=== PATIENT | female | born 1980 | race Caucasian/White ===

== ENCOUNTER → 2018-04-04 08:45 | Outpatient (CLI) | payer OTHER, SELFPAY ==
--- NOTE | 2018-04-04 09:15 | MRI_ITS ---
STUDY: MRI LUMBAR SPINE WITHOUT CONTRAST REASON FOR EXAM: Female, 38 years old. Low back pain for 6 years with increasing numbness in the left leg for 23 weeks. TECHNIQUE: Standardized fat and water weighted pulse sequences were obtained in the sagittal and axial planes. COMPARISON: MRI of the lumbar spine dated August 23, 2016. FINDINGS: T12-L1: Normal endplates. Normal disc height, signal and morphology. Normal bilateral facet joints. Normal central canal and bilateral lateral recesses. Normal bilateral intervertebral neural foramina. Normal lumbar lordosis. There is no substantial scoliosis. Normal conus medullaris that terminates at the L1 level. L1-2: Normal endplates. Normal disc height, signal and morphology. Normal bilateral facet joints. Normal central canal and bilateral lateral recesses. Normal bilateral intervertebral neural foramina. L2-3: Normal endplates. Normal disc height, signal and morphology. Normal bilateral facet joints. Normal central canal and bilateral lateral recesses. Normal bilateral intervertebral neural foramina. L3-4: Normal endplates. Normal disc height, signal and morphology. Normal bilateral facet joints. Normal central canal and bilateral lateral recesses. Normal bilateral intervertebral neural foramina. L4-5: Normal endplates. Normal disc height, signal and morphology. Normal bilateral facet joints. Normal central canal and bilateral lateral recesses. Normal bilateral intervertebral neural foramina. L5-S1: There is narrowing of the disc with loss of normal T2 hyperintensity consistent with degenerative disc disease. Appears to be a focal left foraminal disc protrusion. This narrows the left neural foramen. The right neural foramen is patent. There is mild degenerative arthropathy of facet joints. There is no significant central acquired canal stenosis. Normal visualized sacral ala. Normal visualized paraspinous soft tissue structures. MRI/Spine Lumbar (Routine) IMPRESSION: Degenerative disc disease at L5-S1 with left foraminal disc protrusion. Electronically Signed: Mesha Oquendo MD at 9:27 EDT , Service support ,
== END ==
PROVIDERS: Visit Provider Nurse Practitioner Family
DX: S33.5XXA Sprain of ligaments of lumbar spine, initial encounter (principal)
CPT/HCPCS: 72148

== ENCOUNTER 2018-05-02 03:00 | Emergency (ER) | payer OTHER, SELFPAY ==
[2018-05-02 03:01] VITALS: BP 126/100; PULSE 85; RESP 18; TEMP 38; O2SAT 96; BMI 38.0
--- NOTE | 2018-05-02 03:13 | ED.VISSUMM ---
- ER Visit Summary Date of Service: 05/02/18 Chief Complaint: Back pain History of Present Illness: The patient is a 38 F increasing back pain since yesterday morning. No new activities. History of L5-S1 hernia followed by Dr. Perez. No surgical history. Has had multiple MRIs in the past. Back injection last one this past March. States no help. She is on Celebrex and Zanaflex, taking this less than 6 hours ago. Pain worse with movement. States feels warm. Denies sinus congestion upper respiratory infection. Denies urinary symptoms. Denies recreational drug abuse. Pain similar to previous. History diabetes. Patient states has pain down left leg. Denies any loss of bowel or bladder control. Physical Examination: General: Alert and oriented ?3, uncomfortable HEENT: Normocephalic, atraumatic. Moist mucosa membranes Neck: supple, nontender. Cardiovascular: Regular rate and rhythm, no murmurs Respiratory: Normal breath sounds, symmetric, no distress Abdomen: Soft, nontender, nondistended Back: Tender palpation left paralumbar, no erythema. Straight leg test negative. 1+ patellar reflex bilaterally. Extremities: Nontender, no edema, pulses intact ?4 Neuro: no focal neurological deficits. Test Results: UA: Negative. Emergency Department Course and Treatment: Patient presents with sciatica symptoms history of herniation. She has no cauda equina symptoms. Patient has a low-grade temperature in the ED. She denies any IV drug abuse. There is no rash or erythema of the lower back. Urine was obtained which is negative. Patient has subcu injection morphine for comfort. She will continue her NSAIDs and muscle relaxer. Patient is followed by pain management. Discussed with patient limitations of any additional prescriptions. Adjustments need to be made by her pain doctor. Patient will follow-up as an outpatient, signs and symptoms discussed return. All questions are answered. Treatment Plan: [] Disposition: Discharge Impression: 1. Sciatica 2. Chronic back pain This note was generated with [employer]Spotter[employer] software. It may contain incorrect words, spelling, and punctuation that were not noted in review of the chart prior to signing ED Disposition - Plan for ED Patient: Disposition: Home or Assisted Living Chief Complaint: Back Diagnosis: Sciatica Instructions: ED Sciatica Referrals: Care Physician,No Primary [Primary Care Provider] - Dov Perez [NON-STAFF] - 2 Days
[2018-05-02] MEDS: Morphine 4 MG/ML Syringe SC (03:20)
[2018-05-02 03:29] LABS: Mucous, Urine 0 SEEN /hpf (<or=2+); Red Blood Cells-Urine 0 SEEN /hpf (0-5); White Blood Cells 0 SEEN /hpf (0-5)
[2018-05-02 03:30] LABS: Color, Urine Yellow (Yellow); Glucose, Dipstick Normal (Normal); Ketone-Dipstick Negative (Negative); Leukocyte Esterase-Dipstick Negative /ul (Negative); Nitrite-Dipstick Negative (Negative); Occult Blood-Urine Negative /ul (Negative); Protein-Dipstick Negative (Negative); Urine Bilirubin Dipstick Negative (Negative); Urine Clarity Sl. Cloudy (Clear); Urine Urobilinogen Normal (Normal)
[2018-05-02 03:36] LABS: Bacteria RARE /hpf (None Seen); Squamous Epithelial Cells - UA 10-25 SEEN /hpf (5-10)
--- NOTE | 2018-05-02 03:51 | ED.RN ---
PATIENT C/O PAIN AT DISCHARGE 9/10 AFTER ONLY 20 MIN AFTER MORPHINE INJECTION. THIS WAS NOT FULL EFFECT AT 20 MINUTES. DISCHARGE INSTRUCTIONS GIVEN, AND PATIENT WHEELED OUT TO THE TRUCK BY THIS NURSE.
== END 2018-05-02 03:52 | disposition home or self-care (01) ==
PROVIDERS: Emergency Provider Emergency Medicine
DX: M54.42 Lumbago with sciatica, left side (principal); G89.29 Other chronic pain; E11.9 Type 2 diabetes mellitus without complications; I10 Essential (primary) hypertension; E78.00 Pure hypercholesterolemia, unspecified; Z79.84 Long term (current) use of oral hypoglycemic drugs; Z79.1 Long term (current) use of non-steroidal anti-inflammatories (NSAID); Z79.899 Other long term (current) drug therapy
CPT/HCPCS: 81001; 96372; 99282

== ENCOUNTER 2018-11-14 19:01 | Observation (INO) | payer OTHER, SELFPAY ==
[2018-11-14 19:02] VITALS: BP 160/90; PULSE 98; RESP 16; TEMP 36.7; O2SAT 99; BMI 36.9
--- NOTE | 2018-11-14 19:23 | CT_ITS ---
STUDY: CT BRAIN WITHOUT CONTRAST REASON FOR EXAM: Female, 38 years old. Right-sided numbness. RADIATION DOSAGE (If Supplied By Facility): CTDIvol = ( 44.99 ) mGy, DLP = ( 745.49 ) mGycm TECHNIQUE: Transaxial CT imaging of the brain was performed without administration of intravenous contrast material. Individualized dose optimization techniques were used for this CT. COMPARISON: None. FINDINGS: Normal soft tissue structures. Normal calvarium. Normal size ventricles and extra-axial spaces for the patient's age. Normal white matter tracts of the cerebral hemispheres. Normal basal ganglia and thalami. Normal brainstem. Normal cerebellum. There is no intracranial hemorrhage. There are no findings of an acute ischemic infarction. Normal visualized paranasal sinuses. CT/Brain/Head without Contrast IMPRESSION: Normal unenhanced CT scan of the brain. Electronically Signed: Raz Stovall MD at 21:11 EDT , Service support ,
--- NOTE | 2018-11-14 19:23 | EKG12_ITS ---
Test Reason : NUMB/TING Blood Pressure : / mmHG Vent. Rate : 084 BPM Atrial Rate : 084 BPM P-R Int : 176 ms QRS Dur : 082 ms QT Int : 376 ms P-R-T Axes : 043 014 046 degrees QTc Int : 444 ms Normal sinus rhythm Normal ECG Confirmed by MARC BEGUM, ASHLEIGH ([id number]), purchase request editor ED MARCOS ([id number]) on 11/16/2018 4:24:04 PM Referred By: JESUS Confirmed By:ASHLEIGH TRAN MD
[2018-11-14 19:24] VITALS: O2SAT 97
--- NOTE | 2018-11-14 19:30 | RAD_ITS ---
STUDY: X-RAY CHEST REASON FOR EXAM: Female, 38 years old. Numbness to face with dizziness. TECHNIQUE: Single frontal view of the chest. COMPARISON: September 17, 2014 FINDINGS: The lungs are clear and expanded. There is no demonstrated pleural abnormality. Normal size heart. Normal mediastinum and aroldo. Normal visualized pulmonary arteries. Normal visualized aortic arch and descending thoracic aorta. Normal visualized thoracic spine. Normal visualized ribs, clavicles, and shoulders. There is no demonstrated abnormality of the visualized soft tissue structures of the upper abdomen. RAD/Chest 1 View IMPRESSION: Normal x-ray examination of the chest. Electronically Signed: Musa Restrepo MD at 20:21 EDT , Service support ,
[2018-11-14 20:12] LABS: Absolute Neutrophil Count 4.4 X10^3/uL (2.0-7.7); Basophil# 0.02 X10^3/uL; Basophil% 0.2 % (0-1); Eosinophils% 2.3 % (0-5); Hematocrit 39.9 % (37-47); Hemoglobin 12.6 g/dl (12.0-15.0); Lymphocyte % 40.6 % (19-41); Mean Corp Hgb Conc 31.6 g/gl (32-36); Mean Corpuscular Hgb 29.9 pg (27.0-32.0); Mean Corpuscular Volume 94.8 fL (81-99); Mean Platelet Vol. 9.8 fl (6.2-12.0); Monocyte% 6.8 % (0-10); Neutrophil # 4.44 X10^3/uL (2.7-7.7); Platelet Count 362 K/mm3 (150-450); RBC Distribution Width CV 12.8 % (11.6-14.6); Red Blood Count 4.21 M/mm3 (4.2-5.4); White Blood Count 8.9 K/mm3 (4.4-11.0)
[2018-11-14 20:17] LABS: POSITIVE COUNT NO; POSITIVE DIFFERENTIAL NO; POSITIVE MORPHOLOGY NO
[2018-11-14 20:26] VITALS: BP 133/102; PULSE 87; RESP 15; O2SAT 100
[2018-11-14 20:29] LABS: BUN 13 mg/dL (7-18); Creatinine, Serum 0.98 mg/dL (0.55-1.02); EST Glomerular Filtration Rate 68 mL/min (>60); Estimated Creatinine Clearance 62.16 ml/min; Glucose 100 mg/dL (74-106)
[2018-11-14 20:30] LABS: Anion Gap 6 (5-15); BUN/Creat Ratio 13.3 RATIO (10-20); Calcium,Total 9.2 mg/dL (8.5-10.1); Chloride 105 mmol/L (98-107); Est Glom Filt Rate - Afr Amer 82 mL/min (>60); Potassium 3.5 mmol/L (3.5-5.1); Sodium Level 142 mmol/L (136-145)
[2018-11-14 20:33] LABS: Prothrombin Time (Protime)PT. 13.1 SECONDS (11.7-14.9)
[2018-11-14 20:34] LABS: Partial Thromboplast Time 32.9 Seconds (24.1-36.2)
--- NOTE | 2018-11-14 22:09 | CT_ITS ---
STUDY: CTA OF THE BRAIN REASON FOR EXAM: Female, 38 years old. Rt side numbness. Occipital headache RADIATION DOSAGE (If Supplied By Facility): CTDIvol = ( 16.43 ) mGy, DLP = ( 688.89 ) mGycm TECHNIQUE: CT angiography was performed with a multi-detector CT scanner. Data acquisition was obtained from the skull base through the vertex following intravenous administration of Isovue 300 100ml IV. MIP images were reconstructed from the axial data set. Post-processing of the angiographic images was performed, with multiplanar reformation and 3D reconstruction. Individualized dose optimization techniques were used for this CT. COMPARISON: CT of the head earlier today which was normal. FINDINGS: Normal bilateral petrous carotid arteries. Normal right cavernous carotid artery with a normal supraclinoid bifurcation. Normal left cavernous carotid artery with a normal supraclinoid bifurcation. Normal right A1 segments of the anterior cerebral artery. Normal left A1 segments of the anterior cerebral artery. Normal intact anterior communicating artery (ACOM). Normal bilateral A2 segments of the anterior cerebral arteries. Normal right M1 and M2 segments of the middle cerebral arteries, with a normal M1 bifurcation. Normal left M1 and M2 segments of the middle cerebral arteries, with a normal M1 bifurcation. Normal right posterior communicating artery (PCOM). Normal left posterior communicating artery (PCOM). Normal bilateral vertebral arteries. Normal basilar artery with a normal basilar bifurcation. The visualized bilateral superior cerebellar (SCA) arteries are normal. Normal bilateral P1, P2 and visualized P3 segments of the posterior cerebral arteries. There is no demonstrated aneurysm of the [place]. There is no demonstrated abnormality of the visualized brain. CT/CTA Head W/WO Contrast IMPRESSION: Normal [place] of [place] without a demonstrated aneurysm or hemodynamically significant stenosis. Electronically Signed: Raz Stovall MD at 23:20 EDT , Service support ,
--- NOTE | 2018-11-14 22:09 | CT_ITS ---
STUDY: CTA NECK WITH CONTRAST REASON FOR EXAM: Female, 38 years old. Rt side numbness. Occipital headache RADIATION DOSAGE (If Supplied By Facility): CTDIvol = ( 16.43 ) mGy, DLP = ( 688.89 ) mGycm TECHNIQUE: CT angiography with multi-detector data acquisition was performed from the aortic arch to the skull base following intravenous administration of Isovue 300 100ml IV. MIP images were reconstructed from the axial data set. Post-processing of the angiographic images was performed, with multiplanar reformation and 3D reconstruction. Individualized dose optimization techniques were used for this CT. COMPARISON: None. FINDINGS: AORTIC ARCH: Normal visualized aortic arch. Normal origins of the brachiocephalic, left common carotid, and left subclavian arteries. RIGHT CAROTID ARTERIES: Normal right common carotid artery (CCA). Normal right common carotid bulb. Normal origin of the right internal carotid (ICA) artery without a hemodynamically significant stenosis. Normal visualized cervical portion of the right internal carotid artery. Normal origin of the right external carotid artery (ECA). LEFT CAROTID ARTERIES: Normal left common carotid artery (CCA). Normal left common carotid bulb. Normal origin of the left internal carotid (ICA) artery without a hemodynamically significant stenosis. Normal visualized cervical portion of the left internal carotid artery. Normal origin of the left external carotid artery (ECA). VERTEBRAL ARTERIES: Normal bilateral vertebral arteries. CT/CTA Neck W/WO Contrast IMPRESSION: Normal bilateral cervical carotid and vertebral arteries. Electronically Signed: Raz Stovall MD at 23:22 EDT , Service support ,
--- NOTE | 2018-11-14 22:59 | PCM.HP.STD ---
Problem List (1) Facial paresthesia Status: Acute (2) Anxiety and depression Status: Chronic (3) Hypokalemia Status: Chronic (4) DM2 (diabetes mellitus, type 2) Status: Chronic Qualifiers: Diabetes mellitus intermediate card tender insulin use: without intermediate card tender use Diabetes mellitus complication status: with unspecified complications Qualified Code(s): E11.8 - Type 2 diabetes mellitus with unspecified complications (5) Benign essential HTN Status: Chronic (6) Asthma Status: Chronic Qualifiers: Asthma severity: unspecified severity Asthma persistence: unspecified Asthma complication type: unspecified Qualified Code(s): J45.909 - Unspecified asthma, uncomplicated (7) Obesity (BMI 30-39.9) Status: Chronic (8) Migraine Status: Chronic Qualifiers: Migraine type: unspecified Status migrainosus presence: without status migrainosus Intractability: not intractable Qualified Code(s): G43.909 - Migraine, unspecified, not intractable, without status migrainosus History of Present Illness Date of Admission: 11/14/18 Chief Complaint: R facial paresthesias The patient is a 38 y/o F w/ PMHx: Hx Migraines, Anxiety and Depression, Obesity, Tobacco-->Vaping currently, Diabetes mellitus type II, Hypertension who presents to the [facility] ED on 11/14/18 with history of ongoing R sided facial including upper and lower face, paresthesias, decreased sensation with tingling starting the evening prior at ~ 10 pm while watching TV, remained constant with also concurrent posterior occipital headache, described as stabbing, rated 6/10 in severity with no light or sound sensitivity prompting eventual ED evaluation. In the ED work-up included T 98, heart rate 98, BP initially 160/90 with improvement to 128/90, respiratory rate 16, 99% on room air, unremarkable CBC, unremarkable coags, unremarkable BMP, trop < 0.015, EKG with sinus rhythm with no acute evidence of ischemia, chest x-ray with no acute cardia pulmonary findings, CT brain with no acute intracranial findings, CTA head within normal [place] without demonstrated aneurysm or hemodynamically significant stenosis, CTA neck with normal bilateral cervical carotid and vertebral arteries. ED discussed patient with neurology who advised admission with follow-up MRI. NIH in the ED was only notable 1 for paresthesia. Past Medical History Past Medical History (Chronic Problems): Chronic Problems Anxiety and depression (Chronic) Obesity (BMI 30-39.9) (Chronic) Migraine (Chronic) Hypokalemia (Chronic) DM2 (diabetes mellitus, type 2) (Chronic) Depression (Chronic) Benign essential HTN (Chronic) Asthma (Chronic) Allergies doxycycline Allergy (Verified 05/02/18 03:03) Hives moxifloxacin HCl [From Avelox] Allergy (Verified 05/02/18 03:03) Hives Penicillins [PCN] Allergy (Verified 05/02/18 03:03) Hives Home Medications: Ambulatory Orders Medication Instructions Recorded Metformin HCl 850 mg PO BID 07/24/13 Amitriptyline HCl [Elavil] 20 mg PO QHS 08/25/14 Buspirone HCl 30 mg PO BID 05/02/18 Celecoxib 200 mg PO DAILY 05/02/18 Tizanidine HCl 4 mg PO BID 05/02/18 Surgical History: - - Tonsillectomy, cholecystectomy, . 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 Tobacco Use: Cigarettes, Vapor Alcohol: None Drugs: None - *Family History Maternal History Items: Diabetes Paternal History Items: Diabetes Review of Systems Constitutional: Reports: Fatigue. Denies: Chills, Fever, Weight Change HEENT: Denies: Head Aches, Sinus Congestion, Sinus Drainage Cardiovascular: Denies: Chest Pain, Palpitations Respiratory: Denies: Cough, Shortness of breath at rest, Sputum production Gastrointestinal: Denies: Abdominal Pain, Nausea, Vomiting Genitourinary: Denies: Dysuria Musculoskeletal: Reports: Back Pain, Joint Pain. Denies: Joint Tenderness Skin: Denies: Rash, Wounds Neurological: Reports: Numbness, Tingling. Denies: Focal weakness Psychiatric: Reports: Anxiety, Depression. Denies: Homicidal Ideations, Suicidal Ideations Hematologic/ Lymphatic: Denies: Easy Bruising, Easy Bleeding VTE Information - Inpt Only VTE Present on Admission: No VTE Mechan Device Prophylaxis: SCD's VTE Pharm Prophylaxis ordered?: Yes Patient Problems: Active and Suspected Problems Facial paresthesia (Acute) Subjective: Seated upright in ED bed, mildly fatigued appearance, no acute distress otherwise. Objective: Physical Examination: General: awake, alert, oriented x 3 and cooperative, seated upright in the ED bed in no apparent distress. Skin: normal color, turgor, no icterus, cyanosis. HEENT: AT/NC, EOMI, PERRLA, MMM, no carotid bruits or JVD noted. Lungs: CTA bilaterally, moderate effort, mild decrease BL bases, no rales, ronchi or wheezing. Heart: Regular rate and rhythm; no gallop, rub audible. Abdomen: soft, obese, NTTP, ND, normal BS, no HSM; however, habitus makes examination difficult. Extremities: no cyanosis, clubbing, or edema. Neurological: patient awake, alert, oriented x 3; cognitive function intact; pupils equally reactive to light and accomodation; cranial nerves II-XII grossly normal, moving all 4 extremities, no focal deficits, strength preserved, ongoing decreased sensation and tingling to the right side of the face including upper and lower face, sensation otherwise intact elsewhere, strength preserved, FTN and HTS intact, negative babinski. Psychiatric: affect appears normal, no acute evidence of depressive or anxiety feelings. - Physical Exam Vital Signs Temp Pulse Resp BP Pulse Ox 98.0 F 87 15 133/102 H 100 11/14/18 19:02 11/14/18 20:26 11/14/18 20:26 11/14/18 20:26 11/14/18 20:26 Oxygen Delivery Method Room Air Weight: 201 lb 15.095 oz Body Mass Index (BMI) 36.9 Laboratory Tests Past 24 Hrs 11/14/18 11/14/18 11/14/18 19:55 19:55 19:55 WBC 8.9 RBC 4.21 Hgb 12.6 Hct 39.9 MCV 94.8 MCH 29.9 MCHC 31.6 L RDW 12.8 RDW Differential 44.0 H Plt Count 362 MPV 9.8 Immature Gran % (Auto) 0.100 Neut % (Auto) 50.0 Lymph % (Auto) 40.6 [place] % (Auto) 6.8 Eos % (Auto) 2.3 Baso % (Auto) 0.2 Absolute Neuts (auto) 4.4 Absolute Lymphs (auto) 3.60 Total Counted Not Reportable PT 13.1 INR 1.0 APTT 32.9 Sodium 142 Potassium 3.5 Chloride 105 Carbon Dioxide 31.0 Anion Gap 6 BUN 13 Creatinine 0.98 Estim Creat Clear Calc 62.16 Est GFR (MDRD) Af Amer 82 Est GFR (MDRD) Non-Af 68 BUN/Creatinine Ratio 13.3 Glucose 100 Calcium 9.2 Troponin I < 0.015 Assessment/Plan All Active Problems Facial paresthesia (Acute) The patient is a 38 y/o F w/ PMHx: Hx Migraines, Anxiety and Depression, Obesity, Tobacco-->Vaping currently, Diabetes mellitus type II, Hypertension who presents to the [facility] ED on 11/14/18 with history of ongoing R sided facial including upper and lower face, paresthesias, decreased sensation with tingling starting the evening prior at ~ 10 pm while watching TV, remained constant with also concurrent posterior occipital headache, described as stabbing, rated 6/10 in severity with no light or sound sensitivity prompting eventual ED evaluation. (1) R Facial Paresthesias and Occiptal Headache concerning for TIA/CVA versus Complex Migraine: ED work-up included T 98, heart rate 98, BP initially 160/90 with improvement to 128/90, respiratory rate 16, 99% on room air, unremarkable CBC, unremarkable coags, unremarkable BMP, trop < 0.015, EKG with sinus rhythm with no acute evidence of ischemia, chest x-ray with no acute cardia pulmonary findings, CT brain with no acute intracranial findings, CTA head within normal [place] without demonstrated aneurysm or hemodynamically significant stenosis, CTA neck with normal bilateral cervical carotid and vertebral arteries. Will admit to PCU, will obtain MRI Brain, ECHO, PT/OT/Speech/Nutrition evaluation per protocol. Will consult Neurology for evaluation. Will allow permissive HTN given unclear etiology pending MRI and timeline, maintain on asa, add high dose statin w/ AM FLP, fall precautions. Mag, TSH pending. (2) Diabetes mellitus type II: Hold oral home regimen, HgbA1c pending, ADA diet, accu checks w/ ISS, nutrition consultation for education and teaching. (3) Anxiety and depression: Continue home Elavil, BuSpar regimen. (4) Obesity: Weight loss and lifestyle changes encouraged, nutrition consulted. (5) Tobacco Abuse: Encouraged cessation, inpatient consultation per RT, NR if desired. (6) Hypertension: Not on regimen, states had previously been on lisinopril although low dose, initially elevated BP upon presentation, decreased to normal range following, will closely monitor and if appropriate add oral agent for hypertension once appropriate given acute presentation #1, PRN IV hydralazine in interim. (7) GERD: Famotidine. (8) DVT prophylaxis: SCD, Lovenox. Code Visit OBSV E&M: [id number] Initial observation care L3
--- NOTE | 2018-11-14 23:02 | HP.PCM_ITS ---
Problem List (1) Facial paresthesia Status: Acute (2) Anxiety and depression Status: Chronic (3) Hypokalemia Status: Chronic (4) DM2 (diabetes mellitus, type 2) Status: Chronic Qualifiers: Diabetes mellitus terminal worker insulin use: without terminal worker use Diabetes mellitus complication status: with unspecified complications Qualified Co de(s): E11.8 - Type 2 diabetes mellitus with unspecified complications (5) Benign essential HTN Status: Chronic (6) Asthma Status: Chronic Qualifiers: Asthma severity: unspecified severity Asthma persistence: unspecified Asthma complication type: unspecified Qualified Code(s): J45.909 - Unspecified asthma, uncomplicated (7) Obesity (BMI 30-39.9) Status: Chronic (8) Migraine Status: Chronic Qualifiers: Migraine type: unspecified Status migrainosus presence: without status migrainosus Intractability: not intractable Qualified Code(s): G43.909 - Migraine, unspecified, not intractable, without status migrainosus History of Present Illness Date of Admission: 11/14/18 Chief Complaint: R facial paresthesias The patient is a 38 y/o F w/ PMHx: Hx Migraines, Anxiety and Depression, Obesity, Tobacco-->Vaping currently, Diabetes mellitus type II, Hypertension who presents to the [facility] ED on 11/14/18 with history of ongoing R sided facial including upper and lower face, paresthesias, decreased sensation with tingling starting the evening prior at ~ 10 pm while watching TV, remained constant with also concurrent posterior occipital headache, described as stabbing, rated 6/10 in severity with no light or sound sensitivity prompting eventual ED evaluation. In the ED work-up included T 98, heart rate 98, BP initially 160/90 with improvement to 128/90, respiratory rate 16, 99% on room air, unremarkable CBC, unremarkable coags, unremarkable BMP, trop < 0.015, EKG with sinus rhythm with no acute evidence of ischemia, chest x-ray with no acute cardia pulmonary findings, CT brain with no acute intracranial findings, CTA head within normal hoopa of [place] without demonstrated aneurysm or hemodynamically significant stenosis, CTA neck with normal bilateral cervical carotid and vertebral arteries. ED discussed patient with neurology who advised admission with follow-up MRI. NIH in the ED was only notable 1 for paresthesia. Past Medical History Past Medical History (Chronic Problems): Chronic Problems Anxiety and depression (Chronic) Obesity (BMI 30-39.9) (Chronic) Migraine (Chronic) Hypokalemia (Chronic) DM2 (diabetes mellitus, type 2) (Chronic) Depression (Chronic) Benign essential HTN (Chronic) Asthma (Chronic) Allergies doxycycline Allergy (Verified 05/02/18 03:03) Hives moxifloxacin HCl [From Avelox] Allergy (Verified 05/02/18 03:03) Hives Penicillins [PCN] Allergy (Verified 05/02/18 03:03) Hives Home Medications: Ambulatory Orders Medication Instructions Recorded Metformin HCl 850 mg PO BID 07/24/13 Amitriptyline HCl [Elavil] 20 mg PO QHS 08/25/14 Buspirone HCl 30 mg PO BID 05/02/18 Celecoxib 200 mg PO DAILY 05/02/18 Tizanidine HCl 4 mg PO BID 05/02/18 Surgical History: - - Tonsillectomy, cholecystectomy, . 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 Tobacco Use: Cigarettes, Vapor Alcohol: None Drugs: None - *Family History Maternal History Items: Diabetes Paternal History Items: Diabetes Review of Systems Constitutional: Reports: Fatigue. Denies: Chills, Fever, Weight Change HEENT: Denies: Head Aches, Sinus Congestion, Sinus Drainage Cardiovascular: Denies: Chest Pain, Palpitations Respiratory: Denies: Cough, Shortness of breath at rest, Sputum production Gastrointestinal: Denies: Abdominal Pain, Nausea, Vomiting Genitourinary: Denies: Dysuria Musculoskeletal: Reports: Back Pain, Joint Pain. Denies: Joint Tenderness Skin: Denies: Rash, Wounds Neurological: Reports: Numbness, Tingling. Denies: Focal weakness Psychiatric: Reports: Anxiety, Depression. Denies: Homicidal Ideations, Suicidal Ideations Hematologic/ Lymphatic: Denies: Easy Bruising, Easy Bleeding VTE Information - Inpt Only VTE Present on Admission: No VTE Mechan Device Prophylaxis: SCD's VTE Pharm Prophylaxis ordered?: Yes Patient Problems: Active and Suspected Problems Facial paresthesia (Acute) Subjective: Seated upright in ED bed, mildly fatigued appearance, no acute distress otherwise. Objective: Physical Examination: General: awake, alert, oriented x 3 and cooperative, seated upright in the ED bed in no apparent distress. Skin: normal color, turgor, no icterus, cyanosis. HEENT: AT/NC, EOMI, PERRLA, MMM, no carotid bruits or JVD noted. Lungs: CTA bilaterally, moderate effort, mild decrease BL bases, no rales, ronchi or wheezing. Heart: Regular rate and rhythm; no gallop, rub audible. Abdomen: soft, obese, NTTP, ND, normal BS, no HSM; however, habitus makes examination difficult. Extremities: no cyanosis, clubbing, or edema. Neurological: patient awake, alert, oriented x 3; cognitive function intact; pupils equally reactive to light and accomodation; cranial nerves II-XII grossly normal, moving all 4 extremities, no focal deficits, strength preserved, ongoing decreased sensation and tingling to the right side of the face including upper and lower face, sensation otherwise intact elsewhere, strength preserved, FTN and HTS intact, negative babinski. Psychiatric: affect appears normal, no acute evidence of depressive or anxiety feelings. - Physical Exam Vital Signs Temp Pulse Resp BP Pulse Ox 98.0 F 87 15 133/102 H 100 11/14/18 19:02 11/14/18 20:26 11/14/18 20:26 11/14/18 20:26 11/14/18 20:26 Oxygen Delivery Method Room Air Weight: 201 lb 15.095 oz Body Mass Index (BMI) 36.9 Laboratory Tests Past 24 Hrs 11/14/18 11/14/18 11/14/18 19:55 19:55 19:55 WBC 8.9 RBC 4.21 Hgb 12.6 Hct 39.9 MCV 94.8 MCH 29.9 MCHC 31.6 L RDW 12.8 RDW Differential 44.0 H Plt Count 362 MPV 9.8 Immature Gran % (Auto) 0.100 Neut % (Auto) 50.0 Lymph % (Auto) 40.6 [place] % (Auto) 6.8 Eos % (Auto) 2.3 Baso % (Auto) 0.2 Absolute Neuts (auto) 4.4 Absolute Lymphs (auto) 3.60 Total Counted Not Reportable PT 13.1 INR 1.0 APTT 32.9 Sodium 142 Potassium 3.5 Chloride 105 Carbon Dioxide 31.0 Anion Gap 6 BUN 13 Creatinine 0.98 Estim Creat Clear Calc 62.16 Est GFR (MDRD) Af Amer 82 Est GFR (MDRD) Non-Af 68 BUN/Creatinine Ratio 13.3 Glucose 100 Calcium 9.2 Troponin I < 0.015 Assessment/Plan All Active Problems Facial paresthesia (Acute) The patient is a 38 y/o F w/ PMHx: Hx Migraines, Anxiety and Depression, Obesity, Tobacco-->Vaping currently, Diabetes mellitus type II, Hypertension who presents to the [facility] ED on 11/14/18 with history of ongoing R sided facial including upper and lower face, paresthesias, decreased sensation with tingling starting the evening prior at ~ 10 pm while watching TV, remained constant with also concurrent posterior occipital headache, described as stabbing, rated 6/10 in severity with no light or sound sensitivity prompting eventual ED evaluation. (1) R Facial Paresthesias and Occiptal Headache concerning for TIA/CVA versus Complex Migraine: ED work-up included T 98, heart rate 98, BP initially 160/90 with improvement to 128/90, respiratory rate 16, 99% on room air, unremarkable CBC, unremarkable coags, unremarkable BMP, trop < 0.015, EKG with sinus rhythm with no acute evidence of ischemia, chest x-ray with no acute cardia pulmonary findings, CT brain with no acute intracranial findings, CTA head within normal hoopa of [place] without demonstrated aneurysm or hemodynamically significant stenosis, CTA neck with normal bilateral cervical carotid and vertebral arteries. Will admit to PCU, will obtain MRI Brain, ECHO, PT/OT/Speech/Nutrition evaluation per protocol. Will consult Neurology for evaluation. Will allow permissive HTN given unclear etiology pending MRI and timeline, maintain on asa, add high dose statin w/ AM FLP, fall precautions. Mag, TSH pending. (2) Diabetes mellitus type II: Hold oral home regimen, HgbA1c pending, ADA diet, accu checks w/ ISS, nutrition consultation for education and teaching. (3) Anxiety and depression: Continue home Elavil, BuSpar regimen. (4) Obesity: Weight loss and lifestyle changes encouraged, nutrition consulted. (5) Tobacco Abuse: Encouraged cessation, inpatient consultation per RT, NR if desired. (6) Hypertension: Not on regimen, states had previously been on lisinopril although low dose, initially elevated BP upon presentation, decreased to normal range following, will closely monitor and if appropriate add oral agent for hypertension once appropriate given acute presentation #1, PRN IV hydralazine in interim. (7) GERD: Famotidine. (8) DVT prophylaxis: SCD, Lovenox. Code Visit OBSV E&M: 66056 Initial observation care L3
[2018-11-14 23:38] VITALS: BP 143/94; PULSE 86; RESP 17
--- NOTE | 2018-11-14 23:41 | ED.DCSUM_ITS ---
- ER Visit Summary Date of Service: 11/14/18 Chief Complaint: Paresthesias History of Present Illness: The patient is a 38 F with right sided facial numbness. Symptoms started suddenly yesterday evening when she was watching TV. She reports of numbness and tingling on the right side of her face, the entire right side of her face. She never had this before. She denies any associated symptoms like vision changes, speech changes, balance issues, facial droop, weakness. She does have a history of diabetes, asthma, hypokalemia, and she vapes. Physical Examination: Afebrile and vital signs unremarkable except for a blood pressure of 160/90. NIH stroke scale is 1 for decreased sensation over her right face. Otherwise her HEENT exam is unremarkable. Heart regular. Lungs clear. No focal or lateralizing neurologic abnormalities otherwise. Test Results: EKG showed sinus rhythm at a rate of 84. CBC normal. Anabolic panel normal. Coags normal. Troponin normal. Chest x-ray normal, and CT brain negative. Emergency Department Course and Treatment: Patient had an NIH of 1. She did not meet stroke team criteria. Workup was unremarkable. She was discussed with neurology. Neurology advise admission for MRI. I did reassess the patient and she was complaining of a headache. CTA was performed. This was negative. I spoke with the hospitalist to admit for further care. Treatment Plan: As above Disposition: Admission Impression: 1. Right facial paresthesias This note was generated with [employer] dictation software. It may contain incorrect words, spelling, and punctuation that were not noted in review of the chart prior to signing
[2018-11-14 23:50] VITALS: BMI 36.8
[2018-11-14 23:58] VITALS: PULSE 88
[2018-11-15] VITALS (11 sets, daily range): BP systolic 97–128; BP diastolic 52–90; PULSE 75–89; RESP 14–18; TEMP 36.4–36.9; O2SAT 92–98; BMI 36.8
--- NOTE | 2018-11-15 00:16 | MRI_ITS ---
STUDY: MRI BRAIN WITHOUT CONTRAST REASON FOR EXAM: Female, 38 years old. Numbness and tingling of the right face, headache. TECHNIQUE: Standardized multiplanar fat and water weighted pulse sequences were obtained. COMPARISON: None. FINDINGS: Normal size of the ventricles and extra-axial spaces for the patient's age. Normal white matter tracts of the supratentorial brain. There is no evidence for recent intracranial ischemia or other cause of cytotoxic edema on diffusion weighted imaging (DWI). Normal T2* images of the brain without demonstrated susceptibility artifact. There is no demonstrated hemosiderin stain. Normal bilateral basal ganglia. Normal thalami. There is no extra-axial fluid accumulation. Normal flow voids within the major intracranial circulation suggesting patency by spin echo criteria. Normal sella turcica, pituitary gland, infundibular stalk, optic chiasm and hypothalamus. Normal tectal plate and pineal gland. Normal midbrain, hannah and medulla. Normal cerebellum. Normal basal cisterns. Normal bilateral temporal bones. Normal bilateral internal auditory canals. No demonstrated orbital abnormality, within the constraints of a routine brain study. Normal visualized paranasal sinuses. Normal calvarium and skull base. Normal visualized soft tissue structures. Normal visualized upper cervical spine. MRI/Brain without Contrast IMPRESSION: No evidence of acute intracranial bleed, mass or ischemia. Electronically Signed: Edin Guerra DO at 12:07 EDT , Service support ,
[2018-11-15] MEDS: 0.9% Normal Saline 1,000 ML 100 ML IV ×3 (00:43→23:50)
[2018-11-15 00:59] LABS: Magnesium 1.8 mg/dL (1.6-2.6); Thyroid Stim Hormone (TSH) 1.41 uIU/mL (0.358-3.74)
[2018-11-15 01:02] LABS: Hemoglobin A1c 6.2 % (4.2-6.3)
[2018-11-15] MEDS: Acetaminophen 325 MG Tablet 650 MG PO ×2 (01:17→19:53)
[2018-11-15] MEDS: 0.9% NaCl Peripheral Flush Adult/Peds IV (01:18)
--- NOTE | 2018-11-15 03:02 | ECHOD_ITS ---
Reason For Study: TIA/CVA Procedure This was a 2D Doppler, Color Flow transthoracic echocardiogram. Exam performed portable in patient room. Left Ventricle Normal LV size. Left ventricular systolic function is normal. The estimated ejection fraction is 60 %. Normal diastology for age. No regional wall motion abnormalities noted. Right Ventricle Normal RV size. Normal systolic function. Atria Normal left atrium. Normal right atrium. Bubble contrast study negative for right to left interatrial shunt. Mitral Valve Normal mitral valve. Tricuspid Valve Normal tricuspid valve. Aortic Valve Normal aortic valve. Trisinus/trileaflet aortic valve. Pulmonic Valve Normal pulmonic valve. Great Vessels Normal aortic root. The pulmonary artery is normal size. Normal inferior vena cava. Pericardium/Pleural No pericardial effusion. Medication Performed a rapid injection of agitated mix of 9 cc saline and 1cc air to assess for atrial septal defect. MMode/2D Measurements & Calculations LVIDd: 4.1 cm IVSd: 0.95 cm Ao root diam: 2.9 cm LVIDs: 2.6 cm LVPWd: 1.0 cm RVDd: 3.4 cm FS: 36.5 % LAV(MOD-bp): 28.2 ml LVAd ap4: 26.5 cm2 SV(MOD-sp4): 45.5 ml LAV(MOD-bp) Indexed: 14.7 ml/m2 EDV(MOD-sp4): 78.2 ml LAV(MOD-sp2): 35.4 ml EDV(sp4-el): 81.1 ml LAV(MOD-sp4): 22.3 ml LVAs ap4: 15.3 cm2 ESV(MOD-sp4): 32.7 ml ESV(sp4-el): 33.3 ml EF(MOD-sp4): 58.2 % EF(sp4-el): 58.9 % SV(sp4-el): 47.8 ml LA A4 area: 11.5 cm2 LA dimension(2D): 3.6 cm RA A4 area: 10.8 cm2 Time Measurements MV dec time: 0.21 sec Doppler Measurements & Calculations MV E max saji: 85.8 cm/sec Lat Peak E' Saji: 14.4 cm/sec Med Peak E' Saji: 9.7 cm/sec MV A max saji: 93.9 cm/sec E/E' lat: 6.0 E/E' med: 8.9 MV E/A: 0.91 Ao V2 max: 181.5 cm/sec LV V1 max: 137.2 cm/sec PA V2 max: 138.0 cm/sec Ao max P.2 mmHg LV V1 max P.5 mmHg Interpretation Summary Normal LV size. Left ventricular systolic function is normal. The estimated ejection fraction is 60 %. Normal diastology for age. Bubble contrast study negative for right to left interatrial shunt. Structurally normal valves. Ordering Physician: Kimmy Irizarry Referring Physician: ARIANA MACDONALD Performed By: Jackie Moss RDCS
[2018-11-15 05:54] LABS: Anion Gap 5 (5-15); BUN 10 mg/dL (7-18); Calcium,Total 8.6 mg/dL (8.5-10.1); Chloride 107 mmol/L (98-107); Cholesterol 120 mg/dL (200); Creatinine, Serum 0.83 mg/dL (0.55-1.02); EST Glomerular Filtration Rate 82 mL/min (>60); Est Glom Filt Rate - Afr Amer 99 mL/min (>60); Glucose 98 mg/dL (74-106); High Density Lipoprotein 47 mg/dL; Potassium 3.5 mmol/L (3.5-5.1); Sodium Level 139 mmol/L (136-145); Triglycerides 109 mg/dL; Very Low Density Lipoprotein 22 mg/dL (5-40)
[2018-11-15 06:11] LABS: Absolute Neutrophil Count 4.8 X10^3/uL (2.0-7.7); Basophil# 0.03 X10^3/uL; Basophil% 0.3 % (0-1); Eosinophil# 0.31 X10^3/uL; Eosinophils% 2.9 % (0-5); Hematocrit 34.9 % (37-47); Hemoglobin 11.6 g/dl (12.0-15.0); Lymphocyte % 45.1 % (19-41); Mean Corp Hgb Conc 33.2 g/gl (32-36); Mean Corpuscular Hgb 31.3 pg (27.0-32.0); Mean Corpuscular Volume 94.1 fL (81-99); Monocyte# 0.68 X10^3/uL; Monocyte% 6.4 % (0-10); Neutrophil # 4.81 X10^3/uL (2.7-7.7); Neutrophil % 45.2 % (47-70); Platelet Count 317 K/mm3 (150-450); RBC Distribution Width CV 12.9 % (11.6-14.6); RBC Distribution Width SD 43.9 fl (35.1-43.9); Red Blood Count 3.71 M/mm3 (4.2-5.4); White Blood Count 10.6 K/mm3 (4.4-11.0)
[2018-11-15 06:19] LABS: POSITIVE COUNT NO; POSITIVE DIFFERENTIAL NO; POSITIVE MORPHOLOGY NO
[2018-11-15 06:56] LABS: Bedside Glucose 82 mg/dL (70-110)
[2018-11-15 07:01] LABS: Amphetamine Urine VISTA NEGATIVE (<1000 ng/mL); Barbiturate Urine VISTA NEGATIVE (< 200 ng/mL); Benzodiazepine Urine VISTA NEGATIVE (< 200 ng/mL); Cocaine Urine VISTA NEGATIVE (< 300 ng/mL); Ecstacy Urine VISTA NEGATIVE (< 500 ng/mL); Methadone Urine VISTA NEGATIVE (< 300 ng/mL); PCP Urine VISTA NEGATIVE (< 25 ng/mL); THC Urine VISTA NEGATIVE (< 50 ng/mL); Vista UDS pH Range 6
[2018-11-15] MEDS: Aspirin 81 MG TAB.CHEW PO (08:31)
[2018-11-15] MEDS: Celecoxib 200 MG Capsule PO (08:31)
[2018-11-15] MEDS: Enoxaparin 40 MG/0.4 ML Syringe SC (08:31)
[2018-11-15] MEDS: busPIRone 15 MG TABLET 30 MG PO ×2 (08:31→20:53)
[2018-11-15] MEDS: tiZANidine HCl 2 MG Tablet 4 MG PO ×2 (08:32→20:55)
[2018-11-15] MEDS: Famotidine 20 MG Tablet PO ×2 (08:34→20:56)
--- NOTE | 2018-11-15 11:15 | CON.PCM_ITS ---
Problem List (1) Headache Status: Acute (2) Status migrainosus Status: Acute (3) Facial paresthesia Status: Acute Reason for Consult Date of Consultation: 11/15/18 Reason for Consultation: Facial paresthesia, headache History of Present Illness: The patient is a 38 year old F with PMH of HTN, DM, migraine, asthma, anxiety and depression, obesity admitted with right-sided facial paresthesias in the form of tingling and numbness that started on 11/13/2018 from around 10 PM, associated with occipital headache moderate to severe in intensity, with photophobia per patient, without any visual aura. Patient denies any dizziness, focal motor weakness, new onset sensory loss, speech disturbances, vision loss, jaw claudication or temporal tenderness. Denies any facial pain. Per patient she has a history of migraines and generally gets generalized headache with nausea photophobia and without any visual auras per patient. She does not see any neurologist for her migraines. Is on Elavil probably for depression. CT head done on admission reported nothing acute. CTA head/neck done on admission did not report any hemodynamically significant stenosis or occlusion/aneurysms. [] Past Medical History Past Medical History (Chronic Problems): Chronic Problems Anxiety and depression (Chronic) Obesity (BMI 30-39.9) (Chronic) Migraine (Chronic) Hypokalemia (Chronic) DM2 (diabetes mellitus, type 2) (Chronic) Depression (Chronic) Benign essential HTN (Chronic) Asthma (Chronic) Allergies doxycycline Allergy (Verified 05/02/18 03:03) Hives moxifloxacin HCl [From Avelox] Allergy (Verified 05/02/18 03:03) Hives Penicillins [PCN] Allergy (Verified 05/02/18 03:03) Hives Home Medications: Ambulatory Orders Medication Instructions Recorded Metformin HCl 850 mg PO BID 07/24/13 Amitriptyline HCl [Elavil] 20 mg PO QHS 08/25/14 Buspirone HCl 30 mg PO BID 05/02/18 Celecoxib 200 mg PO DAILY 05/02/18 Tizanidine HCl 4 mg PO BID 05/02/18 Surgical History: - - Tonsillectomy, cholecystectomy, . 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 Lives: Spouse/ Significant Other Smoking Status: Current every day smoker Tobacco Use: Cigarettes - vapes, Vapor Alcohol: None Drugs: None - *Family History Maternal History Items: Diabetes Paternal History Items: Diabetes Review of Systems Constitutional: Reports: - - Complete ROS negative except as documented in HPI Patient Problems: Active and Suspected Problems Facial paresthesia (Acute) Headache (Acute) Status migrainosus (Acute) - Physical Exam General: Alert HEENT: Normocephalic Neck: Supple Lungs: Normal air movement Cardiovascular: Normal S1, Normal S2 Abdomen: Bowel Sounds Present Extremities: No cyanosis Neurological: - - consious, alert, CN 2-12 grossly intact except mild subjective right facial sensory loss in V2 distribution, power 5/5 both UE/LE, no sensory loss, no cerebellar signs, Reflexes + B/L B/S/T/K/A, gait normal, No NR, fundus not visualized. Psych/Mental Status: Normal Affect Vital Signs Temp Pulse Resp BP Pulse Ox 98.4 F 81 14 117/69 92 11/15/18 08:05 11/15/18 08:05 11/15/18 08:05 11/15/18 08:05 11/15/18 08:05 Oxygen Delivery Method Room Air Weight: 91.3 kg Body Mass Index (BMI) 36.8 Intake and Output for Last 24 Hours 11/13/18 11/14/18 11/15/18 23:59 23:59 23:59 Intake Total 906 / 906 Balance 906 / 906 Laboratory Tests Past 24 Hrs 11/14/18 11/14/18 11/14/18 19:55 19:55 19:55 WBC 8.9 RBC 4.21 Hgb 12.6 Hct 39.9 MCV 94.8 MCH 29.9 MCHC 31.6 L RDW 12.8 RDW Differential 44.0 H Plt Count 362 MPV 9.8 Immature Gran % (Auto) 0.100 Neut % (Auto) 50.0 Lymph % (Auto) 40.6 [place] % (Auto) 6.8 Eos % (Auto) 2.3 Baso % (Auto) 0.2 Absolute Neuts (auto) 4.4 Absolute Lymphs (auto) 3.60 Total Counted Not Reportable PT 13.1 INR 1.0 APTT 32.9 Sodium 142 Potassium 3.5 Chloride 105 Carbon Dioxide 31.0 Anion Gap 6 BUN 13 Creatinine 0.98 Estim Creat Clear Calc 62.16 Est GFR (MDRD) Af Amer 82 Est GFR (MDRD) Non-Af 68 BUN/Creatinine Ratio 13.3 Glucose 100 Hemoglobin A1c Calcium 9.2 Magnesium Troponin I < 0.015 Triglycerides Cholesterol LDL Cholesterol VLDL Cholesterol HDL Cholesterol TSH Urine Opiates Screen Urine Methadone Screen Ur Barbiturates Screen Ur Phencyclidine Scrn Ur Amphetamines Screen U Methamphetamin-MDMA U Benzodiazepines Scrn Urine Cocaine Screen U Cannabinoids Screen Ur Drug Screen Comment 11/14/18 11/14/18 11/15/18 19:55 19:55 04:30 WBC RBC Hgb Hct MCV MCH MCHC RDW RDW Differential Plt Count MPV Immature Gran % (Auto) Neut % (Auto) Lymph % (Auto) [place] % (Auto) Eos % (Auto) Baso % (Auto) Absolute Neuts (auto) Absolute Lymphs (auto) Total Counted PT INR APTT Sodium Potassium Chloride Carbon Dioxide Anion Gap BUN Creatinine Estim Creat Clear Calc Est GFR (MDRD) Af Amer Est GFR (MDRD) Non-Af BUN/Creatinine Ratio Glucose Hemoglobin A1c 6.2 Calcium Magnesium 1.8 Troponin I Triglycerides Cholesterol LDL Cholesterol VLDL Cholesterol HDL Cholesterol TSH 1.41 Urine Opiates Screen NEGATIVE Urine Methadone Screen NEGATIVE Ur Barbiturates Screen NEGATIVE Ur Phencyclidine Scrn NEGATIVE Ur Amphetamines Screen NEGATIVE U Methamphetamin-MDMA NEGATIVE U Benzodiazepines Scrn NEGATIVE Urine Cocaine Screen NEGATIVE U Cannabinoids Screen NEGATIVE Ur Drug Screen Comment 11/15/18 11/15/18 04:50 04:50 WBC 10.6 RBC 3.71 L Hgb 11.6 L Hct 34.9 L MCV 94.1 MCH 31.3 MCHC 33.2 RDW 12.9 RDW Differential 43.9 Plt Count 317 MPV 10.0 Immature Gran % (Auto) 0.100 Neut % (Auto) 45.2 L Lymph % (Auto) 45.1 H [place] % (Auto) 6.4 Eos % (Auto) 2.9 Baso % (Auto) 0.3 Absolute Neuts (auto) 4.8 Absolute Lymphs (auto) 4.80 H Total Counted Not Reportable PT INR APTT Sodium 139 Potassium 3.5 Chloride 107 Carbon Dioxide 27.0 Anion Gap 5 BUN 10 Creatinine 0.83 Estim Creat Clear Calc 73.40 Est GFR (MDRD) Af Amer 99 Est GFR (MDRD) Non-Af 82 BUN/Creatinine Ratio 12.0 Glucose 98 Hemoglobin A1c Calcium 8.6 Magnesium Troponin I Triglycerides 109 Cholesterol 120 LDL Cholesterol 51 VLDL Cholesterol 22 HDL Cholesterol 47 TSH Urine Opiates Screen Urine Methadone Screen Ur Barbiturates Screen Ur Phencyclidine Scrn Ur Amphetamines Screen U Methamphetamin-MDMA U Benzodiazepines Scrn Urine Cocaine Screen U Cannabinoids Screen Ur Drug Screen Comment POC Glucose 11/15/18 06:50 POC Glucose 82 Assessment/Plan All Active Problems Facial paresthesia (Acute) Headache (Acute) Status migrainosus (Acute) The patient is a 38 year old F with PMH of HTN, DM, migraine, asthma, anxiety and depression, obesity admitted with right-sided facial paresthesias in the form of tingling and numbness that started on 11/13/2018 from around 10 PM, associated with occipital headache moderate to severe in intensity, with photophobia per patient, without any visual aura. Patient denies any dizziness, focal motor weakness, new onset sensory loss, speech disturbances, vision loss, jaw claudication or temporal tenderness. Denies any facial pain. Per patient she has a history of migraines and generally gets generalized headache with nausea photophobia and without any visual auras per patient. She does not see any neurologist for her migraines. Is on Elavil probably for depression. CT head done on admission reported nothing acute. CTA head/neck done on admission did not report any hemodynamically significant stenosis or occlusion/aneurysms. Impression Likely status migrainosus, complex migraine Unlikely to be TIA at present given the symptom duration for more than 24 hours Plan Check MRI of the brain without contrast Check ESR CTA head/neck and CT head report reviewed Labs reviewed Trial of Depacon 500 mg IV q. 8 hourly for 24-48 hours, then stop, do not discharge patient on Depakote next. Trial of Decadron 4 mg IV every 6 hourly for 24-48 hours, then stop Trial of magnesium sulfate 2 g IV once Trial of Toradol 30 mg IV every 6 hourly as needed severe pain for 24 hours, if no contraindication. Increase Elavil to 25 mg p.o. nightly. PT/OT Fall precautions Further medical management per hospitalist team Follow-up with neurology as outpatient in 4-6 weeks Please call with questions if any Thank you for allowing us to participate in patient's care and management. Code Visit Inpatient E&M: 94865 Init Hosp L3
[2018-11-15 11:31] LABS: Bedside Glucose 156 mg/dL (70-110)
[2018-11-15] MEDS: Insulin Lispro 100 UNIT/ML INSULN.PEN SC ×2 (11:33→20:54)
[2018-11-15 12:03] LABS: Erythrocyte Sedimentation Rate 22 mm/hr (0-20)
[2018-11-15 16:56] LABS: Bedside Glucose 148 mg/dL (70-110)
--- NOTE | 2018-11-15 17:55 | PCM.PROGNOTE ---
Patient Problems: Active and Suspected Problems Facial paresthesia (Acute) Headache (Acute) Status migrainosus (Acute) Subjective: The patient is a 38-year-old female with a past medical history of migraines, anxiety/depression, morbid obesity, tobacco dependence, diabetes mellitus type 2 and hypertension who presented to the emergency department at [facility] on 11/14/2018 complaining of right sided facial paresthesias that had started the previous night. She also complained of concurrent posterior occipital headache described as stabbing and rated as 6/10 in severity. She stated it did not feel like her typical migraine. Brain CT in the emergency room showed no acute intracranial findings. CTA of the head and neck showed no significant areas of stenosis and no aneurysms. She was admitted to a monitored bed on PCU and MRI of the brain was ordered along with a consult with Dr. Sampson. MRI of the brain today showed no acute findings. Afebrile, vital signs stable, pulse ox 93-98% on room air. WBC count is still normal at 10.6 with unremarkable differential. BMP is unremarkable. Lipid panel shows an LDL of 51 and an HDL of 47. TSH was normal. Urine drug screen was negative. She continues to complain of a headache. She has no phonophobia or photophobia. Dr. Sampson feels she has status migrainosus with complex migraine and has started her on Depacon, Decadron, Toradol and magnesium sulfate. Elavil has been increased to 25 mg p.o. nightly. Objective: PHYSICAL EXAM: GENERAL: alert, oriented X 3, Cooperative, NAD ORAL: moist mucosa, no mucosal lesions NECK: No JVD, supple, trachea midline LUNGS: CTA, symmetric chest expansion HEART: RRR, Normal S1 and S2, no rub, no gallop ABDOMEN: soft, NT, ND, BS present, no guarding with palpation EXTREMITIES: no edema, no cyanosis, no calf tenderness SKIN: No rashes, no breakdown NEUROLOGIC: no focal neurologic deficits, subjective decreased sensation of the R side of the face. PSYCH: appropriate, normal affect, pleasant - Physical Exam Vital Signs Temp Pulse Resp BP Pulse Ox 98.0 F 88 14 120/65 98 11/15/18 17:51 11/15/18 17:51 11/15/18 17:51 11/15/18 17:51 11/15/18 17:51 Oxygen Delivery Method Room Air Weight: 201 lb 4.513 oz Body Mass Index (BMI) 36.8 Intake and Output for Last 24 Hours 11/13/18 11/14/18 11/15/18 23:59 23:59 23:59 Intake Total 2344 / 2344 Balance 2344 / 2344 Laboratory Tests Past 24 Hrs 11/14/18 11/14/18 11/14/18 19:55 19:55 19:55 WBC 8.9 RBC 4.21 Hgb 12.6 Hct 39.9 MCV 94.8 MCH 29.9 MCHC 31.6 L RDW 12.8 RDW Differential 44.0 H Plt Count 362 MPV 9.8 Immature Gran % (Auto) 0.100 Neut % (Auto) 50.0 Lymph % (Auto) 40.6 Brown % (Auto) 6.8 Eos % (Auto) 2.3 Baso % (Auto) 0.2 Absolute Neuts (auto) 4.4 Absolute Lymphs (auto) 3.60 Total Counted Not Reportable ESR PT 13.1 INR 1.0 APTT 32.9 Sodium 142 Potassium 3.5 Chloride 105 Carbon Dioxide 31.0 Anion Gap 6 BUN 13 Creatinine 0.98 Estim Creat Clear Calc 62.16 Est GFR (MDRD) Af Amer 82 Est GFR (MDRD) Non-Af 68 BUN/Creatinine Ratio 13.3 Glucose 100 Hemoglobin A1c Calcium 9.2 Magnesium Troponin I < 0.015 Triglycerides Cholesterol LDL Cholesterol VLDL Cholesterol HDL Cholesterol TSH Urine Opiates Screen Urine Methadone Screen Ur Barbiturates Screen Ur Phencyclidine Scrn Ur Amphetamines Screen U Methamphetamin-MDMA U Benzodiazepines Scrn Urine Cocaine Screen U Cannabinoids Screen Ur Drug Screen Comment 11/14/18 11/14/18 11/15/18 19:55 19:55 04:30 WBC RBC Hgb Hct MCV MCH MCHC RDW RDW Differential Plt Count MPV Immature Gran % (Auto) Neut % (Auto) Lymph % (Auto) Brown % (Auto) Eos % (Auto) Baso % (Auto) Absolute Neuts (auto) Absolute Lymphs (auto) Total Counted ESR PT INR APTT Sodium Potassium Chloride Carbon Dioxide Anion Gap BUN Creatinine Estim Creat Clear Calc Est GFR (MDRD) Af Amer Est GFR (MDRD) Non-Af BUN/Creatinine Ratio Glucose Hemoglobin A1c 6.2 Calcium Magnesium 1.8 Troponin I Triglycerides Cholesterol LDL Cholesterol VLDL Cholesterol HDL Cholesterol TSH 1.41 Urine Opiates Screen NEGATIVE Urine Methadone Screen NEGATIVE Ur Barbiturates Screen NEGATIVE Ur Phencyclidine Scrn NEGATIVE Ur Amphetamines Screen NEGATIVE U Methamphetamin-MDMA NEGATIVE U Benzodiazepines Scrn NEGATIVE Urine Cocaine Screen NEGATIVE U Cannabinoids Screen NEGATIVE Ur Drug Screen Comment 11/15/18 11/15/18 11/15/18 04:50 04:50 04:50 WBC 10.6 RBC 3.71 L Hgb 11.6 L Hct 34.9 L MCV 94.1 MCH 31.3 MCHC 33.2 RDW 12.9 RDW Differential 43.9 Plt Count 317 MPV 10.0 Immature Gran % (Auto) 0.100 Neut % (Auto) 45.2 L Lymph % (Auto) 45.1 H Brown % (Auto) 6.4 Eos % (Auto) 2.9 Baso % (Auto) 0.3 Absolute Neuts (auto) 4.8 Absolute Lymphs (auto) 4.80 H Total Counted Not Reportable ESR 22 H PT INR APTT Sodium 139 Potassium 3.5 Chloride 107 Carbon Dioxide 27.0 Anion Gap 5 BUN 10 Creatinine 0.83 Estim Creat Clear Calc 73.40 Est GFR (MDRD) Af Amer 99 Est GFR (MDRD) Non-Af 82 BUN/Creatinine Ratio 12.0 Glucose 98 Hemoglobin A1c Calcium 8.6 Magnesium Troponin I Triglycerides 109 Cholesterol 120 LDL Cholesterol 51 VLDL Cholesterol 22 HDL Cholesterol 47 TSH Urine Opiates Screen Urine Methadone Screen Ur Barbiturates Screen Ur Phencyclidine Scrn Ur Amphetamines Screen U Methamphetamin-MDMA U Benzodiazepines Scrn Urine Cocaine Screen U Cannabinoids Screen Ur Drug Screen Comment POC Glucose 11/15/18 11/15/18 11/15/18 16:10 11:28 06:50 POC Glucose 148 H 156 H 82 Medical Necessity - Tobacco Use Smoking Status: Current every day smoker Tobacco Use: Cigarettes - vapes, Vapor Assessment/Plan All Active Problems Facial paresthesia (Acute) Headache (Acute) Status migrainosus (Acute) Impressions 1. Status migrainosus with complex migraine -orders entered by Dr. Sampson for Decadron, Depacon, Toradol, magnesium sulfate. Elavil increased to 25 mg nightly for migraine prophylaxis. She will follow-up in the neurology clinic with Dr. Sampson in 4-6 weeks. 2. Diabetes mellitus type 3-[id number] with a hemoglobin A1c of 6.2 3. Anxiety/depression 4. Morbid obesity-weight loss advised 5. Tobacco dependence-tobacco cessation recommended Probable DC in the AM Code Visit Inpatient E&M: 88618 Subs Hosp L2
[2018-11-15 20:26] LABS: Bedside Glucose 251 mg/dL (70-110)
[2018-11-15] MEDS: Amitriptyline 10 MG Tablet 40 MG PO (22:25)
[2018-11-16 04:20] VITALS: BP 97/60; PULSE 85; RESP 16; TEMP 36.5; O2SAT 93
[2018-11-16] MEDS: Acetaminophen 325 MG Tablet 650 MG PO (06:26)
[2018-11-16 06:56] LABS: Bedside Glucose 223 mg/dL (70-110)
[2018-11-16] MEDS: Aspirin 81 MG TAB.CHEW PO (07:44)
[2018-11-16] MEDS: Insulin Lispro 100 UNIT/ML INSULN.PEN SC ×2 (07:45→10:54)
[2018-11-16 08:00] VITALS: O2SAT 95
[2018-11-16] MEDS: Celecoxib 200 MG Capsule PO (09:30)
[2018-11-16] MEDS: tiZANidine HCl 2 MG Tablet 4 MG PO (09:30)
[2018-11-16] MEDS: Famotidine 20 MG Tablet PO (09:30)
[2018-11-16] MEDS: busPIRone 15 MG TABLET 30 MG PO (09:30)
--- NOTE | 2018-11-16 09:33 | NURSING ---
Echo in progress
[2018-11-16 10:02] VITALS: BP 113/63; PULSE 85; RESP 16; TEMP 37; O2SAT 93
[2018-11-16 11:11] LABS: Bedside Glucose 262 mg/dL (70-110)
--- NOTE | 2018-11-16 13:14 | DCINST_ITS ---
- Discharge Diagnoses Current Active Problems: Current Active and Chronic Problems Facial paresthesia (Acute) Anxiety and depression (Chronic) Obesity (BMI 30-39.9) (Chronic) Migraine (Chronic) Headache (Acute) Status migrainosus (Acute) You will use the following diet at home:: No restrictions Call your doctor if you observe: Numbness or Tingling, - - intractable migraine Allergies/Adverse Reactions: Allergies doxycycline Allergy (Verified 05/02/18 03:03) Hives moxifloxacin HCl [From Avelox] Allergy (Verified 05/02/18 03:03) Hives Penicillins [PCN] Allergy (Verified 05/02/18 03:03) Hives Medications to take at Discharge Metformin HCl 850 mg PO BID 07/24/13 Amitriptyline HCl [Elavil] 40 mg PO QHS 08/25/14 Buspirone HCl 30 mg PO BID 05/02/18 Celecoxib 200 mg PO DAILY 05/02/18 Tizanidine HCl 4 mg PO BID 05/02/18 Acetaminophen Liquid [Tylenol Liquid] 500 mg PO Q4H PRN PRN udc 11/16/18 Ibuprofen 600 mg PO 4X/DAY PRN #1 tablet 11/16/18 Sumatriptan [Imitrex] 20 mg NASAL DAILY PRN #2 spray 11/16/18 The following prescriptions were given: Sumatriptan [Imitrex] 20 mg NASAL DAILY PRN #2 spray PRN Reason: Migraine Symptoms Ibuprofen 600 mg PO 4X/DAY PRN #1 tablet PRN Reason: Headache Primary Care Physician: Albert Ferrer PA [Primary Care Provider] - Within 2 Weeks Test Results: Test results from this visit will be discussed in further detail at your follow- up appointment, if applicable. Please Follow Up With: Panfilo Sampson MD - Neurology for migraine follow up. When: 4-6 weeks Proposed Discharge Date: 11/16/18
--- NOTE | 2018-11-16 13:14 | PCM.DC.SUM ---
Discharge Date and Diagnosis - Problem List Patient Problems: Active and Suspected Problems Facial paresthesia (Acute) Headache (Acute) Status migrainosus (Acute) Date of Admission: 11/14/18 Date of Discharge: 11/16/18 - Primary Discharge Diagnosis Active and Suspected Problems Facial paresthesia (Acute) Headache (Acute) Status migrainosus (Acute) - Secondary Discharge Diagnosis Chronic Problems Anxiety and depression (Chronic) Obesity (BMI 30-39.9) (Chronic) Migraine (Chronic) Hypokalemia (Chronic) DM2 (diabetes mellitus, type 2) (Chronic) Depression (Chronic) Benign essential HTN (Chronic) Asthma (Chronic) Hospital Course and Treatment Imaging Results: Clinical Impression(s) from Imaging Studies Brain CT 11/14/18 19:23 IMPRESSION: Normal unenhanced CT scan of the brain. Electronically Signed: Raz Stovall MD at 21:11 EDT , Service support , Chest X-Ray 11/14/18 19:30 IMPRESSION: Normal x-ray examination of the chest. Electronically Signed: Musa Restrepo MD at 20:21 EDT , Service support , Head CTA 11/14/18 22:09 IMPRESSION: Normal [place] without a demonstrated aneurysm or hemodynamically significant stenosis. Electronically Signed: Raz Stovall MD at 23:20 EDT , Service support , Neck CTA 11/14/18 22:09 IMPRESSION: Normal bilateral cervical carotid and vertebral arteries. Electronically Signed: Raz Stovall MD at 23:22 EDT , Service support , Brain MRI 11/15/18 00:16 IMPRESSION: No evidence of acute intracranial bleed, mass or ischemia. Electronically Signed: Edin Guerra DO at 12:07 EDT , Service support , MD Camilla: neurology. Operations: None Procedures: None Summary of Care Provided: The patient is a 38 year old F presents with right facial paresthesias. Patient underwent a stroke workup, including an MRI that was negative for stroke. [place] that her symptoms were associated with a migraine and patient was started on Decadron as well as Depakote. Today her headache is much improved. Patient will continue with her Elavil but also have sumatriptan dosings as needed for migraine but also patient instructed to take acetaminophen and ibuprofen as needed for headaches. She will follow-up with neurology next 4-6weeks for outpatient follow-up. [] Patient Problems: Active and Suspected Problems Facial paresthesia (Acute) Headache (Acute) Status migrainosus (Acute) - Physical Exam General: Alert, No apparent distress HEENT: Atraumatic, Normocephalic Neurological: - - no facial droop Psych/Mental Status: Normal Affect, Appropriate Vital Signs Temp Pulse Resp BP Pulse Ox 37.0 C 85 16 113/63 93 11/16/18 10:02 11/16/18 10:02 11/16/18 10:02 11/16/18 10:02 11/16/18 10:02 Oxygen Delivery Method Room Air Weight: 91.3 kg Body Mass Index (BMI) 36.8 Intake and Output for Last 24 Hours 11/14/18 11/15/18 11/16/18 23:59 23:59 23:59 Intake Total 3251 / 3251 1443 / 1443 Balance 3251 / 3251 1443 / 1443 POC Glucose 11/16/18 11/16/18 11/15/18 10:53 06:46 20:23 POC Glucose 262 H 223 H 251 H 11/15/18 16:10 POC Glucose 148 H Discharge Diet: No Restrictions Discharge Activity: Return to Normal Activity Call your doctor if you observe: Numbness or Tingling, - - intractable migraine Home Medications: Medications to take at Discharge Metformin HCl 850 mg PO BID 07/24/13 Amitriptyline HCl [Elavil] 40 mg PO QHS 08/25/14 Buspirone HCl 30 mg PO BID 05/02/18 Celecoxib 200 mg PO DAILY 05/02/18 Tizanidine HCl 4 mg PO BID 05/02/18 Acetaminophen Liquid [Tylenol Liquid] 500 mg PO Q4H PRN PRN udc 11/16/18 Ibuprofen 600 mg PO 4X/DAY PRN #1 tablet 11/16/18 Sumatriptan [Imitrex] 20 mg NASAL DAILY PRN #2 spray 11/16/18 Following Prescrptions Were Given to Patient: Sumatriptan [Imitrex] 20 mg NASAL DAILY PRN #2 spray PRN Reason: Migraine Symptoms Ibuprofen 600 mg PO 4X/DAY PRN #1 tablet PRN Reason: Headache Primary Care Physician: Albert Ferrer PA [Primary Care Provider] - Within 2 Weeks Please Follow Up With: Panfilo Sampson MD - Neurology for migraine follow up. When: 4-6 weeks Disposition: Home Minutes spent on discharge:: 32 Patient Condition:: Good Medical Necessity - Tobacco Use Smoking Status: Current every day smoker Tobacco Use: Cigarettes - vapes, Vapor Meaningful Use Info Meaningful Use Diagnoses (Choose all that apply): None applicable Code Visit Inpatient E&M: 91512 Disch Hosp
--- NOTE | 2018-11-16 13:17 | DS.PCM_ITS ---
Discharge Date and Diagnosis - Problem List Patient Problems: Active and Suspected Problems Facial paresthesia (Acute) Headache (Acute) Status migrainosus (Acute) Date of Admission: 11/14/18 Date of Discharge: 11/16/18 - Primary Discharge Diagnosis Active and Suspected Problems Facial paresthesia (Acute) Headache (Acute) Status migrainosus (Acute) - Secondary Discharge Diagnosis Chronic Problems Anxiety and depression (Chronic) Obesity (BMI 30-39.9) (Chronic) Migraine (Chronic) Hypokalemia (Chronic) DM2 (diabetes mellitus, type 2) (Chronic) Depression (Chronic) Benign essential HTN (Chronic) Asthma (Chronic) Hospital Course and Treatment Imaging Results: Clinical Impression(s) from Imaging Studies Brain CT 11/14/18 19:23 IMPRESSION: Normal unenhanced CT scan of the brain. Electronically Signed: Raz Stovall MD at 21:11 EDT , Service support , Chest X-Ray 11/14/18 19:30 IMPRESSION: Normal x-ray examination of the chest. Electronically Signed: Musa Restrepo MD at 20:21 EDT , Service support , Head CTA 11/14/18 22:09 IMPRESSION: Normal [place] without a demonstrated aneurysm or hemodynamically significant stenosis. Electronically Signed: Raz Stovall MD at 23:20 EDT , Service support , Neck CTA 11/14/18 22:09 IMPRESSION: Normal bilateral cervical carotid and vertebral arteries. Electronically Signed: Raz Stovall MD at 23:22 EDT , Service support , Brain MRI 11/15/18 00:16 IMPRESSION: No evidence of acute intracranial bleed, mass or ischemia. Electronically Signed: Edin Guerra DO at 12:07 EDT , Service support , MD Camilla: neurology. Operations: None Procedures: None Summary of Care Provided: The patient is a 38 year old F presents with right facial paresthesias. Patient underwent a stroke workup, including an MRI that was negative for stroke. [place] that her symptoms were associated with a migraine and patient was started on Decadron as well as Depakote. Today her headache is much improved. Patient will continue with her Elavil but also have sumatriptan dosings as needed for migraine but also patient instructed to take acetaminophen and ibuprofen as needed for headaches. She will follow-up with neurology next 4-6weeks for outpatient follow-up. [] Patient Problems: Active and Suspected Problems Facial paresthesia (Acute) Headache (Acute) Status migrainosus (Acute) - Physical Exam General: Alert, No apparent distress HEENT: Atraumatic, Normocephalic Neurological: - - no facial droop Psych/Mental Status: Normal Affect, Appropriate Vital Signs Temp Pulse Resp BP Pulse Ox 37.0 C 85 16 113/63 93 11/16/18 10:02 11/16/18 10:02 11/16/18 10:02 11/16/18 10:02 11/16/18 10:02 Oxygen Delivery Method Room Air Weight: 91.3 kg Body Mass Index (BMI) 36.8 Intake and Output for Last 24 Hours 11/14/18 11/15/18 11/16/18 23:59 23:59 23:59 Intake Total 3251 / 3251 1443 / 1443 Balance 3251 / 3251 1443 / 1443 POC Glucose 11/16/18 11/16/18 11/15/18 10:53 06:46 20:23 POC Glucose 262 H 223 H 251 H 11/15/18 16:10 POC Glucose 148 H Discharge Diet: No Restrictions Discharge Activity: Return to Normal Activity Call your doctor if you observe: Numbness or Tingling, - - intractable migraine Home Medications: Medications to take at Discharge Metformin HCl 850 mg PO BID 07/24/13 Amitriptyline HCl [Elavil] 40 mg PO QHS 08/25/14 Buspirone HCl 30 mg PO BID 05/02/18 Celecoxib 200 mg PO DAILY 05/02/18 Tizanidine HCl 4 mg PO BID 05/02/18 Acetaminophen Liquid [Tylenol Liquid] 500 mg PO Q4H PRN PRN udc 11/16/18 Ibuprofen 600 mg PO 4X/DAY PRN #1 tablet 11/16/18 Sumatriptan [Imitrex] 20 mg NASAL DAILY PRN #2 spray 11/16/18 Following Prescrptions Were Given to Patient: Sumatriptan [Imitrex] 20 mg NASAL DAILY PRN #2 spray PRN Reason: Migraine Symptoms Ibuprofen 600 mg PO 4X/DAY PRN #1 tablet PRN Reason: Headache Primary Care Physician: Albert Ferrer PA [Primary Care Provider] - Within 2 Weeks Please Follow Up With: Panfilo Sampson MD - Neurology for migraine follow up. When: 4-6 weeks Disposition: Home Minutes spent on discharge:: 32 Patient Condition:: Good Medical Necessity - Tobacco Use Smoking Status: Current every day smoker Tobacco Use: Cigarettes - vapes, Vapor Meaningful Use Info Meaningful Use Diagnoses (Choose all that apply): None applicable Code Visit Inpatient E&M: 75510 Disch Hosp
[2018-11-16 13:35] VITALS: BP 117/75; PULSE 80; RESP 16; TEMP 37; O2SAT 94
== END 2018-11-16 13:13 | disposition home or self-care (01) ==
LOC: ED 19:25 → PCU 23:18
PROVIDERS: Internal Medicine; Psychiatry & Neurology Neurology; Admitting Provider Family Medicine; Emergency Provider Emergency Medicine; Family Provider Physician Assistant; PCP Physician Assistant
DX: G43.901 Migraine, unspecified, not intractable, with status migrainosus (principal); R20.2 Paresthesia of skin; I10 Essential (primary) hypertension; J45.909 Unspecified asthma, uncomplicated; F32.9 Major depressive disorder, single episode, unspecified; E11.9 Type 2 diabetes mellitus without complications; F41.9 Anxiety disorder, unspecified; E66.9 Obesity, unspecified; Z68.36 Body mass index [BMI] 36.0-36.9, adult; Z71.3 Dietary counseling and surveillance; E87.6 Hypokalemia; Z79.899 Other long term (current) drug therapy; F17.290 Nicotine dependence, other tobacco product, uncomplicated; K21.9 Gastro-esophageal reflux disease without esophagitis; R29.701 NIHSS score 1
CPT/HCPCS: 36415; 70450; 70496; 70498; 70551; 71045; 80048; 80061; 80307; 82962; 83036; 83735; 84443; 84484; 85025; 85610; 85652; 85730; 92610; 93005; 93306; 96361; 96365; 96366; 96372; 96375; 96376; 99218; 99283; 99406; J7030; Q9967; A4216; G0378

== ENCOUNTER → 2018-11-24 08:29 | Outpatient (CLI) | payer OTHER, SELFPAY ==
[2018-11-24 08:13] VITALS: BMI 36.8
--- NOTE | 2018-11-24 08:31 | RAD_ITS ---
HISTORY: LBP EXAM/TECHNIQUE: XR Spine Lumbar Min 4 Views: COMPARISON: 04/04/18 lumbar spine MRI. FINDINGS: # of images incl. paperwork: 4 No fracture or dislocation or osseous destruction. Alignment anatomic including with flexion and extension. Mild degenerative changes similar to prior. No acute findings in the soft tissues. RAD/L/S Spine Min 4 Views IMPRESSION: No acute findings. No evidence of instability. at 1011 Reported and signed by: Cecilio Wolf MD Electronically Signed: Cecilio Wolf, at 10:10 EDT Tel , Service support ,
== END ==
PROVIDERS: Family Provider Physician Assistant; Referring Provider Orthopaedic Surgery; Visit Provider Orthopaedic Surgery
DX: M51.26 Other intervertebral disc displacement, lumbar region (principal)
CPT/HCPCS: 72110

== ENCOUNTER 2019-01-26 18:00 | Outpatient (RCR) | payer OTHER, SELFPAY ==
[2018-11-24 08:13] VITALS: BMI 36.8
--- NOTE | 2018-12-21 19:24 | HP.PTEVAL ---
Patient's Visit Information ANA MURRY is a 38 year old F referred to Physical Therapy by Isabelle Cheng MD with a diagnosis of INTERVERTEBRAL DISC DISPLACEMENT. 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 Patient had MRI many years ago 2012 had HNP L5-S1 . Patient has had PT, epidural injections , and MEDS.Symptoms have been intermittant. Most recently pain has more contstant with parathesia in left leg and back pain is constant. Patient followed up with DR CAZARES from pain management. Recommended PT . Also ,injections didnt help pain. Patient loctaed left L-S and left leg. Patient left knee gives way with walking. Agrravating factors bending ,stopping,lifting, extended walking/standing. Aleviating factors rest,stretch. Coughing/sneezing. Bowel/bladder okay . Symptoms affects ADL'S ,housewok , and function. 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 SOCIAL: - Pain Left Back Pain Intensity (Out of 10): 6 Pain Intensity Range: 10 - Objective POSTURE: mild foward posture. NEURO: c/o parathesia/tingling L3-4,L4-5,L5-S1 3/3. GAIT: normal clarisse ,reciprocal pattern. SYMMTRIES : align. PALAPTION: tender L-S. LUMBAR ROM: flexion min/mod loss,extension min/mod loss,side glide min loss. FLEXABLITY: WFL - Special Tests Lumbar Standing: Flexion - Mechanical Response: No effect Lumbar Standing: Flexion - Symptoms During Testing: Increases Lumbar Standing: Flexion - Symptoms After Testing: Worse Lumbar Standing: Extension - Mechanical Response: No effect Lumbar Standing: Extension - Symptoms During Testing: Increases Lumbar Standing: Extension - Symptoms After Testing: No worse Lumbar Standing: Right Side Glides - Mechanical Response: No effect Lumbar Standing: Right Side [place] - Symptoms During Testing: No effect Lumbar Standing: Right Side [place] - Symptoms After Testing: No effect Lumbar Standing: Left Side [place] - Mechanical Response: No effect Lumbar Standing: Left Side [place] - Symptoms During Testing: Increases Lumbar Standing: Left Side [place] - Symptoms After Testing: No worse Lumbar Lying: Flexion - Mechanical Response: No effect Lumbar Lying: Flexion - Symptoms During Testing: No effect Lumbar Lying: Flexion - Symptoms After Testing: No effect Lumbar Lying: Extension - Mechanical Response: No effect Lumbar Lying: Extension - Symptoms During Testing: Decreases Lumbar Lying: Extension - Symptoms After Testing: Better - Goals Goal 1:: Patient to be Independant with HEP Goal Time Frame: 4-6 Weeks Goal 2:: Patient to be Independant with posture/body mechanics Goal Time Frame: 4-6 Weeks Goal 3:: Patient to decrease symptoms by 60% or greater to improve function. Goal Time Frame: 4-6 Weeks Goal 4:: Patient improve lumbaR ROM for function of recovery. Goal Time Frame: 4-6 Weeks Goal 5:: Patient be d/c to prophalaxis Goal Time Frame: 4-6 Weeks Goal 6:: Patient to improve back owestry score by 5 points or greater to mimprove function. Goal Time Frame: 4-6 Weeks - Rehabilitation Potential Physical Therapy Diagnosis: This patient has HNP lumbar with radicular symptoms in left leg affects motion ,pain ,imapirs housework tasks and ADL'S Rehabilitation Potential: Good - Anticipated Interventions Patient/Client Instruction: Educate patient on: Condition, Plan of Care For the Purpose of:: To decrease pain, To increase ROM, To improve nutrient delivery to tissue, To increase oxygenation perfusion, To improve muscle performance and motor function, To increase tolerance to activity/condition/position, To improve ability of physical actions for home/community/work/leisure, To improve health of tissue, To decrease soft tissue restriction, To increase flexibility/ROM, To improve tolerance to ADL's Therapeutic Exercise to Include: Strength training, Body mechanics, Postural training, Flexibilty training, Dynamic Lumbar Stabilization, Yesi Exercises For the Purpose of:: To decrease pain, To increase ROM, To improve muscle performance and motor function, To improve ability to perform ADL's, To increase tolerance to activity/condition/position, To improve ability of physical actions for home/community/work/leisure, To improve health of tissue, To decrease soft tissue restriction, To increase flexibility/ROM, To improve ability to perform tasks related to life management TENS: Yes IF ES: Yes Cryotherapy (ice pack, ice massage): Yes Thermo therapy (hot pack): Yes Ultrasound (thermal/non thermal): Yes For the Purpose of:: To decrease pain, To increase ROM, To improve nutrient delivery to tissue, To increase oxygenation perfusion, To improve health of tissue, To decrease soft tissue restriction Thank you for the opportunity to evaluate your patient. For Medicare and Medicare HMO plans, please review the plan of care and approve it. It will need to be FAXED BACK to us at [phone] for Medicare purposes. For Medicare only, by signing this I certify the plan of care. Please let me know if there are questions or concerns regarding this plan of care. Physician Signature: Date:
--- NOTE | 2019-05-07 13:12 | HP.PTDCSUM ---
HP - PT D/C Summary It has been my pleasure to treat ANA MURRY under orders from Isabelle Cheng MD, for the diagnosis of INTERVERTEBRAL DISC DISPLACEMENT for a total of 10 visit(s). Discharge Date: 02/01/19 Please see the following information for a summary of their discharge status. - Subjective Subjective: Patient doing okay with exercises but worse later in day.Generalized daily activities at home with housework and job demnads can cuase pain . Patient on 20# wt limit. Plan to see pain management DR later this month. - Pain Left Back Pain Intensity (Out of 10): 7 - Overall Improvement % Improvement: 25 - Objective Objective/Function: POSTURE: mild foward posture. GAIT: ambulates with antalgic left. MMT: quads/hams 4/5,hip 4/5. LUMBAR ROM: flexion mod , extension mod loss,side glides mod - Goals Goal 1:: Patient to be Independant with HEP Goal Progress: Goal Met Goal 2:: Patient to be Independant with posture/body mechanics Goal Progress: Goal Met Goal 3:: Patient to decrease symptoms by 60% or greater to improve function. Goal Progress: Progressing Goal 4:: Patient improve lumbaR ROM for function of recovery. Goal Progress: Progressing Goal 5:: Patient be d/c to prophalaxis Goal Progress: Progressing Goal 6:: Patient to improve back owestry score by 5 points or greater to mimprove function. Goal Progress: Progressing - Plan Plan: RTD ..D/C - D/C Information If there are questions or concerns regarding this patient's physical therapy, please feel free to call me at [phone]. Thank you for the referral of this patient. Sincerely, Joselo Shi, PT, Cert MDT, OCS
== END 2019-01-26 19:00 | disposition home or self-care (01) ==
LOC: PT 18:00
PROVIDERS: Referring Provider Orthopaedic Surgery; Visit Provider Orthopaedic Surgery
DX: M51.26 Other intervertebral disc displacement, lumbar region (principal)
CPT/HCPCS: 97035; 97110; 97162

== ENCOUNTER 2019-12-17 22:05 | Emergency (ER) | payer OTHER, SELFPAY ==
[2018-11-24 08:13] VITALS: BMI 36.8
[2019-12-17 22:06] VITALS: BP 138/73; PULSE 79; RESP 15; TEMP 36.6; O2SAT 99; BMI 39.4
--- NOTE | 2019-12-17 22:23 | ED.DCSUM_ITS ---
- ER Visit Summary Date of Service: 12/17/19 Chief Complaint: [Back pain] History of Present Illness: The patient is a 39 F [presents to the emergency department with complaint of pain in her back that started this morning when she woke up. Patient has history of chronic back pain for over 8 years. She is currently in pain management with Dr. Perez. She is currently on Celebrex and Canasa Richard. Patient states the medications are not helping her pain today. Patient had spinal injections in September of this year. She denies any new injury. Her last MRI was about 2 years ago at which time it showed degenerative disc disease on L5-S1 disc protrusion that was not felt to be clinically significant by the spine surgeon that the patient saw and it was recommended that patient have medical management. Patient denies any change in bowel or bladder function. Patient denies any weakness in the extremities. She does complain of pain radiating down her left leg. She denies saddle anesthesia. Patient denies any urinary symptoms. Patient denies any fevers. Recent illness.] Physical Examination: [HEENT-PERRLA, EOMI. Cranial nerves II through XII grossly intact. TMs clear. Mucous membranes moist. No adenopathy. Cardiovascular-regular rate and rhythm without murmur or ectopy Lungs-clear to auscultation, chest wall stable without crepitus or subcu emphysema Abdomen-normoactive bowel sounds, soft, nontender, no rebound or rigidity, no peritoneal signs. Back exam-patient has some mild tenderness over the left lumbar paraspinal musculature. No tenderness in the midline. Patient has negative straight leg raises. Deep tendon reflexes are plus 2 out of 4 bilaterally at the patella and Achilles. Patient has normal 5 extension bilaterally. Patient has somewhat diffuse decrease sensation to light touch of the left lower extremity compared to the right. Extremities-intact ?4, normal range of motion, normal pulses, atraumatic] Test Results: [None indicated] Emergency Department Course and Treatment: [She was medicated with Dilaudid 1 mg IM as well as Toradol 60 mg IM. 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 It may contain incorrect words, spelling, and punctuation that were not noted in review of the chart prior to signing ED Disposition - Plan for ED Patient: Referrals: [facility],Out of [Primary Care Provider] -
--- NOTE | 2019-12-17 22:27 | DCINST.ED_ITS ---
ED Disposition - Plan for ED Patient: Instructions: ED Back Pain Acute or Chronic, ED LUMBAR RADICULOPATHY Prescriptions: Hydrocodone Bitart/Apap 5-325 [Sherrill 5MG-325MG] 1 tab PO Q4H PRN PRN 2 Days #20 tab PRN Reason: Pain Prescription Printed Referrals: [facility],Out of [Primary Care Provider] - Additional Instructions: See pain management in 3-5 days
[2019-12-17] MEDS: Ketorolac 60 MG/2 ML Vial IM (22:41)
[2019-12-17] MEDS: HYDROmorphone 1 MG/ML Syringe IM (22:42)
[2019-12-17 22:58] VITALS: BP 138/73; PULSE 79; RESP 16; O2SAT 99
== END 2019-12-17 23:37 | disposition home or self-care (01) ==
PROVIDERS: Emergency Provider Emergency Medicine
DX: M54.16 Radiculopathy, lumbar region (principal); E11.9 Type 2 diabetes mellitus without complications; I10 Essential (primary) hypertension; J45.909 Unspecified asthma, uncomplicated; F41.9 Anxiety disorder, unspecified; Z79.84 Long term (current) use of oral hypoglycemic drugs; Z79.899 Other long term (current) drug therapy
CPT/HCPCS: 96372; 99282

== ENCOUNTER → 2021-03-01 06:27 | Outpatient (CLI) | payer OTHER, SELFPAY ==
--- NOTE | 2021-03-01 06:44 | MRI_ITS ---
History: LUMBAR YANET 9 YRS AGO, F/U FROM 2018 OF HNP Technique: T1 and T2 MR imaging of the lumbar spine performed without contrast enhancement in axial and sagittal planes. Comparison: April 04, 2018 Findings: Alignment of the lumbar vertebral bodies is normal. No bone marrow edema. The degenerative narrowing of the L3-4 and L5-S1 disc space again seen. Conus medullaris and cauda equina are normal. Paraspinal soft tissues are normal. L1-2: No disc protrusion. Normal caliber spinal canal and neural foramina. L2-3: No disc protrusion. Normal caliber spinal canal and neural foramina. L3-4: No disc protrusion. Normal caliber spinal canal and neural foramina. L4-5: No disc protrusion. Normal caliber spinal canal and neural foramina. L5-S1: Large left posterolateral disc herniation is again noted causing significant narrowing of the left lateral recess and left neural foramen. No significant impingement on the thecal sac cord right neural foramen. IMPRESSION: No significant interval change in the left L5-S1 disc herniation causing significant narrowing of the left lateral recess and adjacent neural foramen. at 0839 Reported and signed by: Saman Howard MD Electronically Signed: Saman Howard MD at 8:37 EDT Tel , Service support , MRI/Spine Lumbar (Routine)
== END ==
PROVIDERS: PCP Physician Assistant; Referring Provider Nurse Practitioner Family; Visit Provider Nurse Practitioner Family
DX: M51.26 Other intervertebral disc displacement, lumbar region (principal); S33.5XXA Sprain of ligaments of lumbar spine, initial encounter
CPT/HCPCS: 72148

== ENCOUNTER 2021-05-19 09:33 | Emergency (ER) | payer OTHER, SELFPAY ==
[2021-05-19 09:34] VITALS: BP 105/73; PULSE 94; RESP 16; TEMP 38.1; O2SAT 94; BMI 37.5
--- NOTE | 2021-05-19 09:46 | ED.RN ---
pt has to be asked multiple times before she answers a question.
--- NOTE | 2021-05-19 10:06 | CT_ITS ---
STUDY: CT BRAIN WITHOUT CONTRAST REASON FOR EXAM: Female, 41 years old. Headache RADIATION DOSAGE (If Supplied By Facility): CTDIvol = ( 44.99 ) mGy, DLP = ( 762.36 ) mGycm TECHNIQUE: Transaxial CT imaging of the brain was performed without administration of intravenous contrast material. Individualized dose optimization techniques were used for this CT. COMPARISON: MRI brain November 15, 2018 FINDINGS: Normal soft tissue structures. Normal calvarium. Normal size ventricles and extra-axial spaces for the patient''s age. Normal white matter tracts of the cerebral hemispheres. Normal basal ganglia and thalami. Normal brainstem. Normal cerebellum. There is no intracranial hemorrhage. There are no findings of an acute ischemic infarction. Normal visualized paranasal sinuses. CT/Brain/Head without Contrast IMPRESSION: Normal unenhanced CT scan of the brain. Electronically Signed: Fabiola Draper MD at 11:48 EDT Tel , Service support ,
--- NOTE | 2021-05-19 10:07 | EX.ED.DYSGE1 ---
HPI History of Present Illness Chief Complaint: Fever Informant: patient Onset/Context/Timing Onset: Days (3) Context: Gradual Onset Timing: Continuous Quality: throbbing/aching Location: top of head bilat, now down into neck too Current Severity: Severe Maximum Severity: Severe Worsened by: light Relieved by: nothing. tried her Maxalt. Associated Symptoms Associated Symptoms: nausea, photophobia, fever to 101, trouble talking due to pain, fatigue Narrative Narrative: Patient had gradual onset of this headache that feels similar to a migraine but now is the worst headache she has ever had. She gets frequent migraines and takes propranolol and amitriptyline for them, and Maxalt when she has one. That did not help this one. She feels fatigued, nauseated. No cough or diarrhea or loss of taste/smell. She has been vaccinated against Covid, fully. No known contact with Covid contacts that she knows of, or other illness. Denies any urinary symptoms. [facility] Medical History Diabetes Migraines Home Medications Metformin HCl 850 mg PO BID 07/24/13 [History Last Taken 11/14/18 11:00] amitriptyline 100 mg PO QHS 08/25/14 [History Last Taken 11/13/18 21:00] buspirone 30 mg PO BID 05/02/18 [History Last Taken 11/14/18 11:00] celecoxib 200 mg PO DAILY 05/02/18 [History Last Taken 11/13/18 21:00] tizanidine 4 mg PO BID 05/02/18 [History Last Taken 11/14/18 11:00] acetaminophen 500 mg PO Q4H PRN PRN udc 11/16/18 [Rx Last Taken Unknown] ibuprofen 600 mg PO 4X/DAY PRN #1 tab 11/16/18 [Rx Last Taken Unknown] sumatriptan [Imitrex] 20 mg NASAL DAILY PRN #2 spray 11/16/18 [Rx Last Taken Unknown] multivitamin 1 tab PO DAILY 11/24/18 [History Last Taken Unknown] ondansetron 8 mg PO Q8H PRN PRN #20 tab 05/19/21 [Rx Last Taken Unknown] propranolol 40 mg PO BID 05/19/21 [History Last Taken Unknown] sertraline 25 mg PO QHS 05/19/21 [History Last Taken Unknown] simvastatin 40 mg PO DAILY 05/19/21 [History Last Taken Unknown] sulfamethoxazole-trimethoprim 1 tab PO BID #14 tablet 05/19/21 [Rx Last Taken Unknown] Allergy/AdvReac Type Severity Reaction Status Date / Time doxycycline Allergy Hives Verified 12/17/19 22:08 moxifloxacin HCl Allergy Hives Verified 12/17/19 22:08 [From Avelox] Penicillins [PCN] Allergy Hives Verified 12/17/19 22:08 Social History Smoking Status: Never smoker ROS ROS ED Constitutional Constitutional ED: Denies chills or fever(s) Eyes Eyes: Reports blurry vision; Denies diplopia ENT ENT ED: Denies ear pain or sore throat Cardiovascular Cardiovascular: Denies chest pain or palpitations Respiratory/Chest Respiratory/Chest: Denies cough or dyspnea Gastrointestinal Gastrointestinal: Reports nausea; Denies abdominal pain, diarrhea or vomiting Genitourinary Genitourinary ED: Denies dysuria or urinary frequency Musculoskeletal Musculoskeletal: Denies back pain or myalgias Integumentary Denies abscess or rash Neurologic Neurologic: Reports headache(s); Denies paresthesias or weakness EXAM Physical Exam Const Vital Signs: 05/19/21 09:34 Temperature 100.5 F H Temperature Source Oral Pulse Rate 94 Respiratory Rate 16 Blood Pressure 105/73 Blood Pressure Mean 83 Pulse Ox 94 Oxygen Delivery Method Room Air HEENT Reports normocephalic and moist mucous membranes atraumatic Eyes PERRL, EOMs intact bilaterally and conjunctivae normal Eyes Narrative: mild photophobia Neck no lymphadenopathy, supple and no meningeal signs Neck Narrative: Painful to take chin down to chest but able Resp normal respiratory effort and clear to auscultation bilaterally GI non-tender and non-distended Palpation: soft Extremity normal to inspection and full ROM Neuro oriented x3 and CN's II-XII intact bilaterally Neuro Narrative: Initially resistant to talk, she does have good eye contact, patient then able to talk and without dysarthria or aphasia. Sensorium / Orientation: awake and alert Speech: speech normal Gait (Neuro): normal gait Motor Exam: strength 5/5 throughout Psych mental status grossly normal Skin Lesions: no lesions Rashes: no rashes MDM MDM MDM Narrative Medical decision making narrative: CT the head is negative, she was treated for migraine and her headache completely resolved after Toradol and Reglan. However when I checked on her, she states it is back and severe just like it was before again, within about 1.5 hours of getting the medications. Her urine shows infection which is presumably the cause of her fever, Covid is negative. We will treat her with a dose of IV Rocephin, I do not think she needs more of a septic work-up at this time, I did send a urine culture, will prescribe her Bactrim to go home on, and prior to discharge she will get a dose of Compazine 5 mg in addition to Benadryl to prevent EPS. Lab Data Attestation: I reviewed the patient's lab results. Labs: Laboratory Results - last 24 hr 05/19/21 12:35 Urine Color Yellow Urine Clarity Sl. Cloudy Urine pH 6.5 Ur Specific Burns 1.015 Urine Protein 30 H Urine Glucose (UA) Normal Urine Ketones 50 H Urine Occult Blood 25 H Urine Nitrite Negative Urine Bilirubin Negative Urine Urobilinogen 1 H Ur Leukocyte Esterase 500 H Urine RBC 0-5 SEEN Urine WBC 5-10 SEEN Ur Squamous Epith Cells 0-5 SEEN Urine Bacteria 2+ Urine Mucus 1+ Radiography Diagnostic Testing: Radiology Impression Brain CT 05/19/21 10:06 IMPRESSION: Normal unenhanced CT scan of the brain. Electronically Signed: Fabiola Draper MD at 11:48 EDT Tel , Service support , Discharge Plan Triage Chief Complaint: Fever ED Provider: Jim Lynn Dx/Rx/DC Orders Clinical Impression: Urinary tract infection, Headache, migraine Instructions: ED, Migraine (Classical), ED CYSTITIS Female Adult Prescriptions: New sulfamethoxazole-trimethoprim [sulfamethoxazole-trimethoprim] 1 TABLET tablet 1 tab PO BID Qty: 14 RF: 0 ondansetron [ondansetron] 4 MG tablet 8 mg PO Q8H PRN PRN (Reason: Nausea) Qty: 20 RF: 0 No Action multivitamin tablet 1 tab PO DAILY RF: 0 Metformin HCl 850 MG tablet 850 mg PO BID RF: 0 amitriptyline 10 MG tablet 100 mg PO QHS RF: 0 celecoxib 200 MG capsule 200 mg PO DAILY RF: 0 tizanidine 4 MG tablet 4 mg PO BID RF: 0 buspirone 30 MG tablet 30 mg PO BID RF: 0 acetaminophen 650 MG/20 ML solution 500 mg PO Q4H PRN PRN (Reason: Headache/Temp>99F) RF: 0 sumatriptan [Imitrex] 20 MG spray,non-aerosol 20 mg NASAL DAILY PRN (Reason: Migraine Symptoms) Qty: 2 RF: 0 ibuprofen 600 MG tablet 600 mg PO 4X/DAY PRN (Reason: Headache) Qty: 1 RF: 0 simvastatin 40 mg tablet 40 mg PO DAILY RF: 0 propranolol 40 mg tablet 40 mg PO BID RF: 0 sertraline 25 mg tablet 25 mg PO QHS RF: 0 Primary Care Provider: Albert Ferrer Referrals: Albert Ferrer PA [Primary Care Provider] - 3-5 Days if not improving Disposition Disposition: Home, Self Care
[2021-05-19] MEDS: Ketorolac 30 MG/ML Syringe IV (10:24)
[2021-05-19] MEDS: Metoclopramide 10 MG/2 ML Vial IV (10:24)
[2021-05-19 12:44] LABS: Color, Urine Yellow (Yellow); Glucose, Dipstick Normal (Normal); Ketone-Dipstick 50 mg/dl (Negative); Leukocyte Esterase-Dipstick 500 /ul (Negative); Nitrite-Dipstick Negative (Negative); Occult Blood-Urine 25 /ul (Negative); Protein-Dipstick 30 mg/dl (Negative); Specific Gravity, Urine 1.015 (1.002-1.030); Urine Bilirubin Dipstick Negative (Negative); Urine Clarity Sl. Cloudy (Clear); Urine Urobilinogen 1 mg/dl (Normal); Urine pH 6.5 (5.0 - 8.0)
[2021-05-19 12:50] LABS: Red Blood Cells-Urine 0-5 SEEN /hpf (0-5); Squamous Epithelial Cells - UA 0-5 SEEN /hpf (5-10); White Blood Cells 5-10 SEEN /hpf (0-5)
[2021-05-19 12:51] LABS: Bacteria 2+ /hpf (None Seen); Mucous, Urine 1+ /hpf (<or=2+)
[2021-05-19] MEDS: proCHLORPERazine 10 MG/2 ML Vial 5 MG IV (13:26)
[2021-05-19] MEDS: DiphenhydrAMINE 50 MG/ML Syringe 25 MG IV (13:27)
[2021-05-19] MEDS: Ceftriaxone 1 GM/50 ML BAG IV (13:33)
[2021-05-19 13:51] VITALS: BP 105/75; PULSE 70; RESP 15
== END 2021-05-19 13:59 | disposition home or self-care (01) ==
PROVIDERS: Emergency Provider Emergency Medicine; PCP Physician Assistant
DX: N39.0 Urinary tract infection, site not specified (principal); G43.909 Migraine, unspecified, not intractable, without status migrainosus; E11.9 Type 2 diabetes mellitus without complications; Z79.84 Long term (current) use of oral hypoglycemic drugs; Z79.899 Other long term (current) drug therapy
CPT/HCPCS: 70450; 81001; 87086; 87088; 87426; 96365; 96375; 99283; A4216

== ENCOUNTER 2021-05-29 07:07 | Emergency (ER) | payer OTHER, SELFPAY ==
[2021-05-29 07:08] VITALS: BP 169/109; PULSE 78; RESP 16; TEMP 36.2; O2SAT 98; BMI 37.5
--- NOTE | 2021-05-29 07:27 | CT_ITS ---
STUDY: CT BRAIN WITHOUT CONTRAST REASON FOR EXAM: Female, 41 years old. Migraine headaches. RADIATION DOSAGE (If Supplied By Facility): CTDIvol = ( 44.99 ) mGy, DLP = ( 745.49 ) mGycm TECHNIQUE: Transaxial CT imaging of the brain was performed without administration of intravenous contrast material. Individualized dose optimization techniques were used for this CT. COMPARISON: Comparison is made with prior study dated 05/19/2021. FINDINGS: Normal soft tissue structures. Normal calvarium. Normal size ventricles and extra-axial spaces for the patient''s age. Normal white matter tracts of the cerebral hemispheres. Normal basal ganglia and thalami. Normal brainstem. Normal cerebellum. There is no intracranial hemorrhage. There are no findings of an acute ischemic infarction. Normal visualized paranasal sinuses. CT/Brain/Head without Contrast IMPRESSION: Normal unenhanced CT scan of the brain. Electronically Signed: Stanley Hogan MD at 8:20 EDT , Service support ,
--- NOTE | 2021-05-29 07:30 | EX.ED.VIS.HA ---
HPI History of Present Illness Chief Complaint: Headache Informant: patient Narrative Narrative: Patient is a 41-year-old female with history of migraines as well as diabetes mellitus presenting with migraine. Patient states she woke up from sleep at 6 AM with a severe headache. She states it is unusual for headache to wake her up from sleep. She describes it as pounding and throbbing in nature and points to her forehead but also states it is on the back of her neck. She has associated photophobia. She denies any ringing or ears or abnormal sounds. She has associated nausea and vomiting. Patient states she gets frequent headaches but this is more intense than her normal ones. She not take any of her migraine medications this morning. She notes that she was seen in the ER about 1 week ago for migraine and UTI. She is treated with a migraine cocktail which did improve her symptoms and then her migraines stopped completely couple days later. She denies any fever, rash, vision changes, weakness or paresthesias. No other complaints at this time. Patient had a negative Covid test yesterday. She states she gets tested regularly for work. She is not concerned for Covid. [facility] Medical History Diabetes Migraines Home Medications Metformin HCl 850 mg PO BID 07/24/13 [History Last Taken 11/14/18 11:00] amitriptyline 100 mg PO QHS 08/25/14 [History Last Taken 11/13/18 21:00] buspirone 30 mg PO BID 05/02/18 [History Last Taken 11/14/18 11:00] celecoxib 200 mg PO DAILY 05/02/18 [History Last Taken 11/13/18 21:00] tizanidine 4 mg PO BID 05/02/18 [History Last Taken 11/14/18 11:00] acetaminophen 500 mg PO Q4H PRN PRN udc 11/16/18 [Rx Last Taken Unknown] ibuprofen 600 mg PO 4X/DAY PRN #1 tab 11/16/18 [Rx Last Taken Unknown] sumatriptan [Imitrex] 20 mg NASAL DAILY PRN #2 spray 11/16/18 [Rx Last Taken Unknown] multivitamin 1 tab PO DAILY 11/24/18 [History Last Taken Unknown] ondansetron 8 mg PO Q8H PRN PRN #20 tab 05/19/21 [Rx Last Taken Unknown] propranolol 40 mg PO BID 05/19/21 [History Last Taken Unknown] sertraline 25 mg PO QHS 05/19/21 [History Last Taken Unknown] simvastatin 40 mg PO DAILY 05/19/21 [History Last Taken Unknown] sulfamethoxazole-trimethoprim 1 tab PO BID #14 tablet 05/19/21 [Rx Last Taken Unknown] Allergy/AdvReac Type Severity Reaction Status Date / Time doxycycline Allergy Hives Verified 05/29/21 07:27 moxifloxacin HCl Allergy Hives Verified 05/29/21 07:27 [From Avelox] Penicillins [PCN] Allergy Hives Verified 05/29/21 07:27 Social History Smoking Status: Never smoker ROS ROS ED Constitutional Constitutional ED: Denies chills, fever(s) or malaise Eyes Eyes: Reports other Details: Photophobia ; Denies blurry vision, change in vision or loss of vision ENT ENT ED: Denies rhinorrhea or sore throat Cardiovascular Cardiovascular: Denies chest pain or dizziness Respiratory/Chest Respiratory/Chest: Denies cough or dyspnea Gastrointestinal Gastrointestinal: Reports vomiting; Denies abdominal pain or nausea Genitourinary Genitourinary ED: Denies dysuria or hematuria Musculoskeletal Musculoskeletal: Denies arthralgias or myalgias Integumentary Denies rash or wounds Neurologic Neurologic: Reports headache(s); Denies focal weakness, paresthesias or weakness Psychiatric Psychiatric: Denies anxiety or behavioral changes EXAM Physical Exam Const Vital Signs: 05/29/21 07:08 05/29/21 08:17 05/29/21 10:19 Temperature 97.1 F L Temperature Source Temporal Pulse Rate 78 77 65 Respiratory Rate 16 14 14 Blood Pressure 169/109 H 135/87 H 130/87 H Blood Pressure Mean 129 103 101 Pulse Ox 98 95 96 Oxygen Delivery Method Room Air Room Air Room Air 05/29/21 11:22 Temperature Temperature Source Pulse Rate 72 Respiratory Rate 12 Blood Pressure 125/94 H Blood Pressure Mean 104 Pulse Ox 98 Oxygen Delivery Method Room Air Positive well nourished, well developed and no apparent distress Constitutional Narrative: Patient sitting in the dark room, appears uncomfortable General Appearance ED: well developed HEENT Reports normocephalic and moist mucous membranes atraumatic Nose: no nasal discharge External Ear: external ears normal Mouth ED: Yes moist mucous membranes normal Eyes PERRL and EOMs intact bilaterally Neck full ROM, supple and no meningeal signs Chest Wall inspection of chest normal Resp normal respiratory effort and normal air movement Cardio regular rate and regular rhythm GI normal to inspection, nondistended, normoactive bowel sounds and non-distended Auscultation: normoactive bowel sounds Palpation: soft Extremity normal to inspection and full ROM Neuro oriented x3, CN's II-XII intact bilaterally, no focal motor deficits and no sensory deficits noted Sensorium / Orientation: awake and alert Motor Exam: strength 5/5 throughout Psych mental status grossly normal and thought process normal Skin no rashes or lesions noted and no wounds Lesions: no lesions Rashes: no rashes MDM MDM MDM Narrative Medical decision making narrative: Patient evaluated for headache. Given that it was sudden onset that woke her from sleep I will obtain a head CT to rule out subarachnoid hemorrhage. She is treated with Compazine and Benadryl as well as IV fluids. Head CT is negative we will give IV Toradol. On repeat evaluation patient still having a headache but is feeling slightly improved. She is given a dose of IV Depakote and does have improvement of her symptoms. She is discharged home but is given referral to neurology. Instructed also follow-up with her primary care doctor. I suspect this is her migraine and I do not suspect subarachnoid hemorrhage, meningitis or other more serious pathology. Radiography Diagnostic Testing: Radiology Impression Brain CT 05/29/21 07:27 IMPRESSION: Normal unenhanced CT scan of the brain. Electronically Signed: Stanley Hogan MD at 8:20 EDT , Service support , Discharge Plan Triage Chief Complaint: Headache ED Provider: Linn Rust Dx/Rx/DC Orders Clinical Impression: Headache, Migraine Instructions: ED, Migraine (Classical) Prescriptions: No Action multivitamin tablet 1 tab PO DAILY RF: 0 Metformin HCl 850 MG tablet 850 mg PO BID RF: 0 amitriptyline 10 MG tablet 100 mg PO QHS RF: 0 celecoxib 200 MG capsule 200 mg PO DAILY RF: 0 tizanidine 4 MG tablet 4 mg PO BID RF: 0 buspirone 30 MG tablet 30 mg PO BID RF: 0 acetaminophen 650 MG/20 ML solution 500 mg PO Q4H PRN PRN (Reason: Headache/Temp>99F) RF: 0 sumatriptan [Imitrex] 20 MG spray,non-aerosol 20 mg NASAL DAILY PRN (Reason: Migraine Symptoms) Qty: 2 RF: 0 ibuprofen 600 MG tablet 600 mg PO 4X/DAY PRN (Reason: Headache) Qty: 1 RF: 0 simvastatin 40 mg tablet 40 mg PO DAILY RF: 0 propranolol 40 mg tablet 40 mg PO BID RF: 0 sertraline 25 mg tablet 25 mg PO QHS RF: 0 sulfamethoxazole-trimethoprim [sulfamethoxazole-trimethoprim] 1 TABLET tablet 1 tab PO BID Qty: 14 RF: 0 ondansetron [ondansetron] 4 MG tablet 8 mg PO Q8H PRN PRN (Reason: Nausea) Qty: 20 RF: 0 Primary Care Provider: Albert Ferrer Referrals: Ghassan Bray MD [STAFF PHYSICIAN] - Albert Ferrer PA [Primary Care Provider] - Disposition Disposition: Home, Self Care Discharge Date/Time: 05/29/21 11:49
[2021-05-29] MEDS: proCHLORPERazine 10 MG/2 ML Vial IV (07:35)
[2021-05-29] MEDS: 0.9% Normal Saline 1,000 ML 999 ML IV (07:35)
[2021-05-29] MEDS: DiphenhydrAMINE 50 MG/ML Syringe IV (07:35)
[2021-05-29 08:17] VITALS: BP 135/87; PULSE 77; RESP 14; O2SAT 95
[2021-05-29] MEDS: Ketorolac 15 MG/ML Vial IV (08:53)
--- NOTE | 2021-05-29 10:03 | ED.RN ---
Pt. sleeping at this time. notified that we are waiting on medication from pharmacy.
[2021-05-29 10:19] VITALS: BP 130/87; PULSE 65; RESP 14; O2SAT 96
[2021-05-29 11:22] VITALS: BP 125/94; PULSE 72; RESP 12; O2SAT 98
== END 2021-05-29 11:49 | disposition home or self-care (01) ==
PROVIDERS: Emergency Provider Emergency Medicine; PCP Physician Assistant
DX: G43.909 Migraine, unspecified, not intractable, without status migrainosus (principal); E11.9 Type 2 diabetes mellitus without complications; Z79.84 Long term (current) use of oral hypoglycemic drugs
CPT/HCPCS: 70450; 96361; 96365; 96366; 96375; 99283; J7030; A4216

== ENCOUNTER 2024-02-05 11:04 | Day surgery (SDC) | payer OTHER, SELFPAY ==
[2024-01-28 09:44] LABS: Hematocrit 39.2 % (37-47); Hemoglobin 12.8 g/dL (12.0-15.0); Mean Corp Hgb Conc 32.7 g/dL (32-36); Mean Corpuscular Hgb 30.7 pg (27.0-32.0); Mean Platelet Vol. 11.2 fl (6.2-12.0); Platelet Count 284 K/mm3 (150-450); RBC Distribution Width CV 12.2 % (11.6-14.6); RBC Distribution Width SD 42.2 fl (35.1-43.9); Red Blood Count 4.17 M/mm3 (4.2-5.4); White Blood Count 11.2 K/mm3 (4.4-11.0)
[2024-02-05] VITALS (8 sets, daily range): BP systolic 121–143; BP diastolic 77–95; PULSE 77–88; RESP 16; TEMP 36.2; O2SAT 94–98; BMI 38.0
[2024-02-05 11:27] LABS: Internal QC Validated? YES +Cl - CLEAR BKGD; Pregnancy, Urine Negative Negative
[2024-02-05] MEDS: Lactated Ringers 1,000 ML 15 ML IV (11:39)
[2024-02-05 11:58] LABS: Bedside Glucose 117 mg/dL (74-106)
--- NOTE | 2024-02-05 13:39 | PCM.OPRPT ---
Problems Associated Problem List Diagnoses (1) DUB (dysfunctional uterine bleeding): (2) Menorrhagia: Report of Operation Date of Procedure: 02/05/24 Pre-Operative Diagnosis: Menorrhagia, DUB, endometrial biopsy with proliferative endometrium and possible polyp Post-Operative Diagnosis: As above Surgery/Procedure Performed:: Attempted hysteroscopy Description of Surgical Findings:: Normal appearing vaginal tissue and cervix Surgeon: Amber Luna patient safety sitter: None Type of Anesthesia: MAC Special Medications: None Specimen's removed: None Drains: None Estimated Blood Loss (mL): < 50 Fluids Replaced: 550 cc fluid deficit Description of Procedure: Patient was taken to operating room where MAC anesthesia was initiated. Patient was prepped and draped in the dorsal lithotomy position using yellow fin stirrups. A weighted speculum placed in the vagina to expose the cervix. A single-tooth tenaculum was placed on the anterior lip of the cervix. The cervix was easily serially dilated. The uterus then sounded to 8 cm. The Symphion hysteroscope was then advanced and a false tract was noted, and the hysteroscope was unable to be advanced to the uterine fundus. The hysteroscope was then removed. Bleeding was hemostatic. All instruments removed from the vagina and a vaginal sweep was performed. Instrument and sponge counts were correct. Patient was taken to recovery in stable condition. Grafts/Implants Used: None Procedure Start Time: 13:22 Procedure Stop Time: 13:37 Complications None Admit VTE Documentation VTE Present on Admission: No VTE Mechan Device Prophylaxis: SCD's
--- NOTE | 2024-02-05 13:53 | PCM.DC ---
Discharge Instructions Diet Discharge Diet: No restrictions Activity Discharge Activity: May Drive (once you are more than 24 hours out from surgery) and May Shower (once you are more than 24 hours out from surgery) May resume sexual activity in: 1-2 weeks (nothing in the vagina for 1-2 weeks while you are having the bleeding) Weight Bearing Status: Weight bearing as tolerated Lifting Restrictions: none Dressing / Incision Call your doctor if you observe: Fever of 101 or Higher, Coldness, Increased Pain, Numbness or Tingling, Change in Color, Inability to urinate, Inability to have a bowel movement, Using more than 1 pad per hour, Shortness of breath, Dizziness, Fainting spells, Swelling in the ankles, Chest pain, Prolonged hiccupping, Increased palpitations (irregular heartbeat), Calf discomfort and Uncontrolled pain Cleanse incision/area with: Soap & Water Follow Up Care Please Follow Up With: Amber Luna DO When: 1-2 weeks Test Results: Test results from this visit will be discussed in further detail at your follow-up appointment, if applicable. Discharge Plan Admission Primary Reason for Your Visit: surgery Attending Provider: Amber Luna Primary Care Provider: Albert Ferrer Instructions Print Language: Mauritanian Discharge Orders/Prescriptions Prescriptions: Continued multivitamin tablet 1 tab PO DAILY metformin 850 mg tablet 850 mg PO BID amitriptyline 50 mg tablet 100 mg PO QHS omega-3 fatty acids [Fish Oil Concentrate] 1,000 mg capsule 1,000 mg PO BID desvenlafaxine succinate [Pristiq] 25 mg tablet extended release 24 hr 25 mg PO DAILY propranolol 20 mg tablet 20 mg PO BID Qty: 60 9RF Nurtec ODT 75 mg tablet,disintegrating 75 mg PO DAILY PRN (Reason: migraine headache) Qty: 16 9RF topiramate 100 mg tablet 100 mg PO BID Qty: 60 9RF celecoxib 200 MG capsule 200 mg PO DAILY Patient Comments: tizanidine 4 MG tablet 4 mg PO BID Patient Comments: take 1 tablet by mouth twice a day if needed buspirone 30 MG tablet 30 mg PO BID Patient Comments: take 1 tablet by mouth twice a day acetaminophen 650 MG/20 ML solution 500 mg PO Q4H PRN PRN (Reason: Headache/Temp>99F) 0RF ibuprofen 600 MG tablet 600 mg PO 4X/DAY PRN (Reason: Headache) Qty: 1 0RF simvastatin 40 mg tablet 40 mg PO DAILY Patient Comments: take 1 tablet by mouth at bedtime Referrals / Follow Up: Albert Ferrer PA [Primary Care Provider] - Disposition Disposition (needs filled in before D/C Order can be placed): Home, Self Care
== END 2024-02-05 14:58 | disposition home or self-care (01) ==
LOC: SDC 11:05 → AC 11:06
PROVIDERS: Anesthesiology; PCP Physician Assistant; Referring Provider Obstetrics & Gynecology; Visit Provider Obstetrics & Gynecology
PROC: 0UB98ZZ Excision of Uterus, Via Natural or Artificial Opening Endoscopic (ICD-10-PCS; CPT 58558; principal; 2024-02-05 12:30)
DX: N84.0 Polyp of corpus uteri (principal); E11.43 Type 2 diabetes mellitus with diabetic autonomic (poly)neuropathy; Z53.09 Procedure and treatment not carried out because of other contraindication; N93.8 Other specified abnormal uterine and vaginal bleeding; N92.1 Excessive and frequent menstruation with irregular cycle; E78.00 Pure hypercholesterolemia, unspecified; J45.20 Mild intermittent asthma, uncomplicated; E66.9 Obesity, unspecified; Z68.38 Body mass index [BMI] 38.0-38.9, adult; F17.290 Nicotine dependence, other tobacco product, uncomplicated; Z79.84 Long term (current) use of oral hypoglycemic drugs; Z79.899 Other long term (current) drug therapy
CPT/HCPCS: 58558; 36415; 81025; 82962; 85027; 86850; 86900; 86901; J7120; J2405

== ENCOUNTER 2024-04-15 10:10 | Day surgery (SDC) | payer OTHER, SELFPAY ==
--- NOTE | 2024-04-06 08:06 | EKG12_ITS ---
Test Reason : PREOP Blood Pressure : / mmHG Vent. Rate : 055 BPM Atrial Rate : 055 BPM P-R Int : 178 ms QRS Dur : 080 ms QT Int : 460 ms P-R-T Axes : 031 026 051 degrees QTc Int : 440 ms Sinus bradycardia Otherwise normal ECG Confirmed by Vincent Choi ([id number]), society editor RASHAD ALCANTARA ([id number]) on 04/07/2024 8:59:45 AM Referred By: Amber Luna Confirmed By:Vincent Choi
[2024-04-06 09:16] LABS: Hematocrit 38.7 % (37-47); Hemoglobin 12.3 g/dL (12.0-15.0); Mean Corp Hgb Conc 31.8 g/dL (32-36); Mean Corpuscular Hgb 30.4 pg (27.0-32.0); Mean Corpuscular Volume 95.6 fL (81-99); Mean Platelet Vol. 11.4 fl (6.2-12.0); Platelet Count 267 K/mm3 (150-450); RBC Distribution Width CV 12.3 % (11.6-14.6); RBC Distribution Width SD 43.1 fl (35.1-43.9); Red Blood Count 4.05 M/mm3 (4.2-5.4); White Blood Count 12.3 K/mm3 (4.4-11.0)
[2024-04-06 09:49] LABS: ALB/GLOB Ratio 0.8 RATIO (0.9-2.4); AST(SGOT) 42 U/L (15-37); Alanine Aminotransfer ALT/SGPT 64 U/L (13-56); Albumin, Serum 3.2 g/dL (3.2-5.0); Alkaline Phosphatase 70 U/L (45-117); Anion Gap 6 (5-15); BUN 9 mg/dL (7-18); BUN/Creat Ratio 8.6 RATIO (10-20); Calcium,Total 8.6 mg/dL (8.5-10.1); Chloride 109 mmol/L (98-107); Creatinine, Serum 1.05 mg/dL (0.55-1.02); EST Glomerular Filtration Rate 61 mL/min (>60); Est Glom Filt Rate - Afr Amer 74 mL/min (>60); Glucose 119 mg/dL (74-106); Magnesium 1.9 mg/dL (1.6-2.6); Potassium 3.4 mmol/L (3.5-5.1); Protein, Total 7.2 g/dL (6.4-8.2); Sodium Level 142 mmol/L (136-145)
[2024-04-06 10:04] LABS: Hemoglobin A1c 6.9 % (3.8-5.6)
[2024-04-15] VITALS (14 sets, daily range): BP systolic 118–143; BP diastolic 62–106; PULSE 72–96; RESP 14–18; TEMP 36.1–37.2; O2SAT 95–100; BMI 36.1
[2024-04-15 10:43] LABS: Internal QC Validated? YES +Cl - CLEAR BKGD; Pregnancy, Urine Negative Negative
--- NOTE | 2024-04-15 10:56 | PRE.ANES_ITS ---
ASA Classification* ASA Classification ASA Classification: 2 Assessment & Plan Anesthesia* Anesthesia Assessment Anesthesia Assessment: Discussed sedation and/or anesthesia options, risks, benefits, and alternatives with patient/parents/legal guardian/POA. Questions invited. The patient/parents/legal guardian/POA seems to understand and agrees to proceed with anesthesia plan. Reviewed the physical assessment, medical history, allergy history and patient home medications list prior to surgery/procedure/anesthetic and documented any changes. Performed airway and anesthesia risk assessments. Anesthesia Type Anesthesia Type: General (see written pre-anesthesia record for full assessment) Anesthesia Focused Assessment* Temperature: 98.6 F Pulse Rate: 96 Blood Pressure: 130/85 Respiratory Rate: 18 Pulse Ox: 98 Airway Assessment Mouth opens: >3 cm Mallampati Score: II Focused Labs Anesthesia Preop lab: CBC WBC 12.3 K/mm3 (4.4-11.0) H 04/06/24 08:18 RBC 4.05 M/mm3 (4.2-5.4) L 04/06/24 08:18 Hgb 12.3 g/dL (12.0-15.0) 04/06/24 08:18 Hct 38.7 % (37-47) 04/06/24 08:18 Plt Count 267 K/mm3 (150-450) 04/06/24 08:18 CHEMISTRY Potassium 3.4 mmol/L (3.5-5.1) L 04/06/24 08:18 Sodium 142 mmol/L (136-145) 04/06/24 08:18 Magnesium 1.9 mg/dL (1.6-2.6) 04/06/24 08:18 BUN 9 mg/dL (7-18) 04/06/24 08:18 Creatinine 1.05 mg/dL (0.55-1.02) H 04/06/24 08:18 Glucose 119 mg/dL (74-106) H 04/06/24 08:18 POC Glucose 117 mg/dL (74-106) H 02/05/24 11:38 TSH 1.41 uIU/mL (0.358-3.74) 11/14/18 19:55 COAG PT 13.1 SECONDS (11.7-14.9) 11/14/18 19:55 Urine Test Negative Negative 04/15/24 10:30 Pre-Assessment Diagnosis/Proposed Procedure Planned Operative Procedure(s): (B) ERAS, Hysterectomy,TLH, bilateral salpingectomy, cystoscopy Anesthesia History Anesthesia History - annual giving officer: Anesthesia History - annual giving officer Hx Hospitalization No 04/05/24 09:45 Any Problems With Anesthesia No 04/05/24 09:45 Cholinesterase deficiency No 04/05/24 09:45 You/Your Family Experience No 04/05/24 09:45 fever (hyperthermia) with Relationship Recent Exposure to Contagious No 04/15/24 10:42 Disease Does patient have nerve No 04/05/24 09:45 stimulator Patient instructed to have device shut off --Does patient have Pacemaker No 04/15/24 10:42 or ICD? When Was Last Pacemaker Check QUESTION #4 FULL TEXT: You/Your Family Experience fever (hyperthermia) with Anesthesia Last Oral Intake Last Oral intake: Last Oral Intake NPO since 00:00 04/15/24 10:42 Meds taken in AM with sips of No 04/15/24 10:42 water? Meds patient instructed to take am of surgery PONV PONV - annual giving officer: PONV - annual giving officer Female Yes 04/05/24 09:45 HX of Motion Sickness No 04/05/24 09:45 HX of N/V After Surgery No 04/05/24 09:45 Non-Smoker No 04/05/24 09:45 Duration of Surgery greater Yes 04/05/24 09:45 than 60 minutes Number of Risk Factors 2 04/05/24 09:45 PONV Score Moderate Risk 04/05/24 09:45 Height & Weight Height & Weight: Anesthesia: Height & Weight Height 5 ft 2 in 04/15/24 10:42 Weight: 89.539 kg 04/15/24 10:42 Body Mass Index (BMI) 36.1 04/15/24 10:42 Respiratory Assessment Respiratory Assessment - annual giving officer: Respiratory Tract Infection Hx - annual giving officer Hx Respiratory Tract Infection No 04/05/24 09:45 STOP Sleep Apnea STOP Sleep Apnea - annual giving officer: STOP Sleep Apnea - annual giving officer Hx Hypertension No 04/05/24 09:45 Hx Sleep Apnea No 04/05/24 09:45 CPAP BIPAP Do you snore loudly (louder No 04/05/24 09:45 than talking or can be heard Do you often feel tired/ No 04/05/24 09:45 fatigued/ sleepy during daytime? Has anyone observed you stop No 04/05/24 09:45 breathing during sleep? STOP Results Negative 04/05/24 09:45 QUESTION #5 FULL TEXT : Do you snore loudly (louder than talking or can be h eard through closed doors)? Tobacco Use History Tobacco Use History - annual giving officer: Tobacco Use History - annual giving officer Tobacco Use Smoking Status Current every day smoker 04/05/24 09:45 Hx Tobacco Use Yes 04/05/24 09:45 Years Smoking Packs Smoked per Day Smoking Cessation Date was within the last 15 years Hx Smoking Cessation Date Hx Smoking Cessation Yes 04/05/24 09:45 Counseling Hematologic Medial History Hematologic Hx - annual giving officer: Hematologic Medical Hx - clinical documentation nurse Hx of Blood Transfusion No 04/05/24 09:45 Hx of Transfusion in last 3 No 04/05/24 09:45 Months Date of Last Transfusion (if within last 3 months) Ever experience any problems No 04/05/24 09:45 with transfusion(s)? Specify any problems Hx of Preganancy in last 3 No 04/05/24 09:45 Months Nurse Filling Out Transfusion MGRIFFITH 04/05/24 09:45 & Questions: Date: 04/05/24 04/05/24 09:45 Time: 09:47 04/05/24 09:45 Patient unable to answer at this time (ie. confused, unrespo /Reproduction History /Reproductive History - annual giving officer: /Reproductive Hx- annual giving officer Hx Now No 04/05/24 09:45 Gestational Age (in weeks): EDC: Hx Hx Para Hx Section SAB No 04/05/24 09:45 Active Medications Active Medications: Current Medications Generic Name Dose Route Start Last Admin Trade Name Freq PRN Reason Stop Dose Admin Acetaminophen 1,000 mg 04/15/24 12:30 04/15/24 10:53 Acetaminophen 500 Mg Tablet PO 04/15/24 12:31 1,000 mg PREOP ONE Administration Celecoxib 400 mg 04/15/24 12:30 04/15/24 10:53 Celecoxib 200 Mg Capsule PO 04/15/24 12:31 400 mg X1 ONE Administration Enoxaparin Sodium 40 mg 04/15/24 12:30 04/15/24 10:51 Enoxaparin 40 Mg/0.4 Ml Syringe SC 04/15/24 12:31 40 mg X1 ONE Administration Gabapentin 600 mg 04/15/24 12:30 04/15/24 10:53 Gabapentin 600 Mg Tablet PO 04/15/24 12:31 600 mg PREOP ONE Administration Lactated Ringer's 1,000 mls @ 40 mls/hr 04/15/24 12:30 04/15/24 10:50 IV 40 mls/hr .Q25H RAJI Administration Lactated Ringer's 1,000 mls @ 40 mls/hr 04/15/24 13:30 IV .Q25H RAJI Magnesium Sulfate 2 gm/ 104 mls @ 208 mls/hr 04/15/24 12:30 04/15/24 10:54 Dextrose IV 04/15/24 12:59 208 mls/hr X1 ONE Administration Insulin Human Lispro 0 unit 04/15/24 12:30 Insulin Lispro 100 Unit/Ml Insuln.Pen SC 04/15/24 18:30 Q4H PRN PRN BG >/= 180, SEE PROTOCOL Protocol Ondansetron HCl 4 mg 04/15/24 13:00 Ondansetron 4 Mg/2 Ml Vial IV 04/15/24 13:01 X1 ONE Phenazopyridine HCl 190 mg 04/15/24 12:30 04/15/24 10:52 Phenazopyridine 95 Mg Tablet PO 04/15/24 12:31 190 mg X1 ONE Administration PFSH Medical History Injury of back Wears glasses Depression Anxiety Fatty liver High cholesterol Restless legs Back pain Smoker Leg cramps History of echocardiogram Polycystic ovaries History of pneumonia History of gallstones Migraines Diabetes Home Medications ?Medication ?Instructions ?Recorded ?Last Taken ?Type buspirone 30 mg tablet 30 mg PO BID 05/02/18 04/14/24 History tizanidine 4 mg tablet 4 mg PO BID 05/02/18 04/14/24 History acetaminophen 650 mg/20.3 mL oral 500 mg (15.6154 mL) PO Q4H PRN PRN 11/16/18 Unknown Rx solution Headache/Temp>99F ibuprofen 600 mg tablet 600 mg PO 4X/DAY PRN Headache #1 11/16/18 Unknown Rx TAB multivitamin 1 tab PO DAILY 11/24/18 04/14/24 History simvastatin 40 mg tablet 40 mg PO QHS 05/19/21 04/14/24 History amitriptyline 50 mg tablet 100 mg PO QHS 06/12/21 04/14/24 History metformin 850 mg tablet 1,000 mg PO BID 06/12/21 04/14/24 History omega-3 fatty acids 1,000 mg 1,000 mg PO BID 06/12/21 04/10/24 History capsule (Fish Oil Concentrate) rimegepant 75 mg disintegrating 75 mg PO DAILY PRN migraine 08/29/22 Unknown Rx tablet (Nurtec ODT) headache #16 tabs topiramate 100 mg tablet 100 mg PO BID #60 tabs 08/29/22 04/14/24 Rx propranolol 20 mg tablet 20 mg PO Q12H migraine 04/05/24 04/14/24 History venlafaxine 37.5 mg 37.5 mg PO DAILY 04/05/24 04/14/24 History capsule,extended release 24 hr Allergy/AdvReac Type Severity Reaction Status Date / Time doxycycline Allergy Hives Verified 04/05/24 09:40 moxifloxacin HCl (From Allergy Hives Verified 04/05/24 09:40 Avelox) Penicillins (PCN) Allergy Hives Verified 04/05/24 09:40 Surgical History History of colonoscopy History of dilation and curettage History of selective injection of anesthetic agent around lumbar nerve root History of tonsillectomy and adenoidectomy History of section History of cholecystectomy Social History Smoking Status: Current every day smoker tobacco type: e-cigarettes Tobacco: How many years used: 6 Smokeless tobacco user: other Electronic Cigarette Use: with nicotine second hand exposure: No alcohol intake: never substance use type: does not use dillon/christian: None seatbelt use: always Review of Systems (Anesthesia) ROS Narrative System reviewed and no additional complaints, except as documented.
[2024-04-15 11:12] LABS: Bedside Glucose 155 mg/dL (74-106)
--- NOTE | 2024-04-15 13:27 | DCINST_ITS ---
Discharge Instructions Diet Discharge Diet: No restrictions Activity Discharge Activity: May Drive (once you are more than 24 hours out from surgery) and May Shower (once you are more than 24 hours out from surgery) May resume sexual activity in: 1-2 weeks (nothing in the vagina and no soaking in water) Ice area for (Minutes): 14 Weight Bearing Status: Weight bearing as tolerated Lifting Restrictions: nothing greater than 15 pounds through the weekend Dressing / Incision Call your doctor if your incision/area has: Continuous Slow Oozing, Sudden Increased Bleeding, Increased Pain/ Swelling, Increased Redness, Foul Smelling Discharge and Swelling at the incision site Call your doctor if you observe: Fever of 101 or Higher, Coldness, Increased Pain, Numbness or Tingling, Change in Color, Inability to urinate, Inability to have a bowel movement, Using more than 1 pad per hour, Shortness of breath, D izziness, Fainting spells, Swelling in the ankles, Chest pain, Prolonged hiccupping, Increased palpitations (irregular heartbeat), Calf discomfort and Uncontrolled pain Suture Line Care: Avoid Pulling/Pushing and Avoid Pinching/Bending Remove Dressing in: leave in place till F/U (the glue will peel up over time) Cleanse incision/area with: Soap & Water Follow Up Care Please Follow Up With: Amber Luna DO When: 1-2 weeks Test Results: Test results from this visit will be discussed in further detail at your follow- up appointment, if applicable. Discharge Plan Admission Primary Reason for Your Visit: surgery Attending Provider: Amber Luna Primary Care Provider: Albert Ferrer Instructions Print Language: New Zealander Discharge Orders/Prescriptions Prescriptions: New oxycodone-acetaminophen [Percocet] 5-325 mg tablet 1 tab PO Q6H PRN (Reason: pain) 7 Days Qty: 10 0RF Continued multivitamin tablet 1 tab PO DAILY metformin 850 mg tablet 1,000 mg PO BID amitriptyline 50 mg tablet 100 mg PO QHS omega-3 fatty acids [Fish Oil Concentrate] 1,000 mg capsule 1,000 mg PO BID Nurtec ODT 75 mg tablet,disintegrating 75 mg PO DAILY PRN (Reason: migraine headache) Qty: 16 9RF topiramate 100 mg tablet 100 mg PO BID Qty: 60 9RF tizanidine 4 MG tablet 4 mg PO BID Patient Comments: take 1 tablet by mouth twice a day if needed buspirone 30 MG tablet 30 mg PO BID Patient Comments: take 1 tablet by mouth twice a day acetaminophen 650 MG/20 ML solution 500 mg PO Q4H PRN PRN (Reason: Headache/Temp>99F) 0RF ibuprofen 600 MG tablet 600 mg PO 4X/DAY PRN (Reason: Headache) Qty: 1 0RF simvastatin 40 mg tablet 40 mg PO QHS Patient Comments: take 1 tablet by mouth at bedtime venlafaxine 37.5 mg capsule,extended release 24hr 37.5 mg PO DAILY propranolol 20 mg tablet 20 mg PO Q12H Other Ambulatory Orders: 12 Lead EKG (Routine) Timeframe: [id number] Location: None Selected Ordered By: Dr. Jostin Daniels Referrals / Follow Up: Albert Ferrer, PA [Primary Care Provider] - Disposition Disposition (needs filled in before D/C Order can be placed): Home, Self Care
--- NOTE | 2024-04-15 13:37 | PCM.OPRPT ---
Problems Associated Problem List Diagnoses (1) Menorrhagia: (2) DUB (dysfunctional uterine bleeding): Report of Operation Date of Procedure: 04/15/24 Pre-Operative Diagnosis: Menorrhagia, DUB Post-Operative Diagnosis: As above Surgery/Procedure Performed:: Diagnostic laparoscopy Description of Surgical Findings:: Uterus sounded to 10 cm. The uterus was completely adhered to the anterior abdominal wall. The left pelvis side wall contained significant adhesive disease and unable to identify adnexa and ureter. The right ovary and fallopian tube appeared normal. The posterior cul de sac appeared normal. No obvious endometriosis was noted. Surgeon: Amber Luna divisional storekeeper: Rhona Lamb Type of Anesthesia: General Special Medications: None Specimen's removed: None Drains: [place] Estimated Blood Loss (mL): < 20 Fluids Replaced: See anesthesia record Description of Procedure: The patient was taken to the operating room where general anesthesia was induced. She was prepped and draped in the dorsal lithotomy position using yellow fin stirrups. From below a weighted speculum was placed to expose the cervix. The anterior lip of the cervix was grasped with a single-tooth tenaculum. The cervix was serially dilated to accommodate the uterine manipulator. The single-tooth tenaculum and weighted speculum were removed. Gloves were changed and attention was turned to the abdominal portion of the procedure. An infraumbilical incision was made after injection with local to accommodate a 5 mm port. The 5 mm port was placed under direct visualization using the laparoscope. Once confirmed intraperitoneal, CO2 insufflation was initiated. No injuries were noted upon entry. Findings were noted as above. The uterus was significantly adhered to the anterior abdominal wall, and bladder was not able to be well-appreciated. The left adnexa was encased in adhesive disease along the left pelvic sidewall. The right fallopian tube and right ovary were noted. The posterior cul-de-sac was inspected and normal-appearing. No obvious endometriosis was noted. The decision was made to end the procedure given significant adhesive disease. The laparoscope was removed and the abdomen was exsufflated. The skin was closed with 4 Monocryl and glue. The uterine manipulator was removed from the vagina. The vaginal sweep was performed. Intra, sharp, sponge counts were correct. The patient was taken to recovery in stable condition. Dr. Morales was present for the entire case and assisted with draping the patient, placing the uterine manipulator, inspection during diagnostic laparoscopy, and removal of vaginal instruments and uterine manipulator. Grafts/Implants Used: None Procedure Start Time: 13:01 Procedure Stop Time: 13:21 Complications None Admit VTE Documentation VTE Present on Admission: No VTE Mechan Device Prophylaxis: SCD's
--- NOTE | 2024-04-15 14:46 | PCM.POST.ANE ---
Anesthesia: Postop Eval I Current Vital Signs Temperature: 97 F Pulse Rate: 81 Blood Pressure: 118/79 Respiratory Rate: 14 Pulse Ox: 98 Oxygen Delivery Method: Room Air Assessment Airway patent: Yes Spontaneous unlabored respirations: Yes Mental status: Awake and Calm nausea: No Vomiting: No Anesthesia Complication: No Fluid Hydration Crystalloid volume administer (ml): 1,000 Total IV fluid infused: 1,000 Progress Note Anesthesia document: Postop Eval 1 completed: Yes
--- NOTE | 2024-04-15 15:12 | POSTOPAN2_ITS ---
Anesthesia Postop Eval I Sum Postop Eval Completion status Anesthesia document: Postop Eval 1 completed: Yes Anesthesia Postop Eval I Summary Anesthesia Postop Eval I Summary: Anesthesia Postop Eval I: Assessment Summary Airway patent Yes 04/15/24 14:47 PHARMACY OPERATIONS [email or web address] Spontaneous unlabored Yes 04/15/24 14:47 PHARMACY OPERATIONS MANAGER.[email or web address] respirations Mental status Awake,Calm 04/15/24 14:47 PHARMACY OPERATIONS MANAGER.[email or web address] nausea No 04/15/24 14:47 PHARMACY OPERATIONS MANAGER.[email or web address] Vomiting No 04/15/24 14:47 PHARMACY OPERATIONS MANAGER.[email or web address] Anesthesia Postop Eval I: Fluid Summary Crystalloid volume administer 1,000 04/15/24 14:47 PHARMACY OPERATIONS MANAGER.[email or web address] (ml) Colloids volume administered ( ml) Blood Product volume administered (ml) Total IV fluid infused 1,000 04/15/24 14:47 PHARMACY OPERATIONS MANAGER.[email or web address] Anesthesia Postop Eval I: Summary Notes Anesthesia Complication No 04/15/24 14:47 PHARMACY OPERATIONS MANAGER.[email or web address] Anesthesia Complication Comment: Post-operative progress note Anesthesia: Postop Eval II Evaluation Mental status: Awake and Calm Pain Level: 2 nausea: No Vomiting: No Complications Anesthesia Complication: No
--- NOTE | 2024-04-15 15:12 | PCM.POSTANE2 ---
Anesthesia Postop Eval I Sum Postop Eval Completion status Anesthesia document: Postop Eval 1 completed: Yes Anesthesia Postop Eval I Summary Anesthesia Postop Eval I Summary: Anesthesia Postop Eval I: Assessment Summary Airway patent Yes 04/15/24 14:47 INVENTORY CONTROL COORDINATOR.[email or web address] Spontaneous unlabored Yes 04/15/24 14:47 INVENTORY CONTROL COORDINATOR.[email or web address] respirations Mental status Awake,Calm 04/15/24 14:47 INVENTORY CONTROL COORDINATOR.[email or web address] nausea No 04/15/24 14:47 INVENTORY CONTROL COORDINATOR.[email or web address] Vomiting No 04/15/24 14:47 INVENTORY CONTROL COORDINATOR.[email or web address] Anesthesia Postop Eval I: Fluid Summary Crystalloid volume administer 1,000 04/15/24 14:47 INVENTORY CONTROL COORDINATOR.[email or web address] (ml) Colloids volume administered ( ml) Blood Product volume administered (ml) Total IV fluid infused 1,000 04/15/24 14:47 INVENTORY CONTROL COORDINATOR.[email or web address] Anesthesia Postop Eval I: Summary Notes Anesthesia Complication No 04/15/24 14:47 INVENTORY CONTROL COORDINATOR.[email or web address] Anesthesia Complication Comment: Post-operative progress note Anesthesia: Postop Eval II Evaluation Mental status: Awake and Calm Pain Level: 2 nausea: No Vomiting: No Complications Anesthesia Complication: No
== END 2024-04-15 15:50 | disposition home or self-care (01) ==
LOC: SDC 10:18 → AC 10:18
PROVIDERS: Anesthesiology; PCP Physician Assistant; Referring Provider Obstetrics & Gynecology; Visit Provider Obstetrics & Gynecology
PROC: 0UT94ZZ Resection of Uterus, Percutaneous Endoscopic Approach (ICD-10-PCS; CPT 49320; principal; 2024-04-15 12:10)
DX: N93.8 Other specified abnormal uterine and vaginal bleeding (principal); E11.9 Type 2 diabetes mellitus without complications; N92.4 Excessive bleeding in the premenopausal period; N73.6 Female pelvic peritoneal adhesions (postinfective); E66.9 Obesity, unspecified; F32.A Depression, unspecified; F41.9 Anxiety disorder, unspecified; F17.290 Nicotine dependence, other tobacco product, uncomplicated; Z68.36 Body mass index [BMI] 36.0-36.9, adult; Z79.84 Long term (current) use of oral hypoglycemic drugs; Z79.899 Other long term (current) drug therapy
CPT/HCPCS: 49320; 00840; 36415; 80053; 81025; 82962; 83036; 83735; 85027; 86850; 86900; 86901; 93005; J7120; J2405

== ENCOUNTER 2024-04-20 21:13 | Emergency (ER) | payer OTHER, SELFPAY ==
[2024-04-20 21:14] VITALS: BP 135/97; PULSE 77; RESP 18; TEMP 36.2; O2SAT 96; BMI 36.7
[2024-04-20 21:16] VITALS: BP 137/75; PULSE 77; RESP 18; TEMP 36.2; O2SAT 98
--- NOTE | 2024-04-20 22:00 | RAD_ITS ---
We are attempting to reach an attending provider to discuss findings. An addendum with communication details will be sent when the communication is complete. INDICATION: constipation EXAMINATION/TECHNIQUE: X-RAY - XR Abdomen W/ Decub and/or Erect Views COMPARISON: No relevant prior comparison study available FINDINGS: AP supine and upright views. There is lucency beneath the diaphragm on the upright view suspicious for free air. Detail is relatively limited by the overlying soft tissues. Paucity of bowel gas in the abdomen with nonspecific fluid levels. No dilated bowel to suggest bowel obstruction. No abnormal mass or calcification is seen. The lung bases are clear. RAD/Abd Decub and/or Erect(Portabl IMPRESSION: Findings suspicious for pneumoperitoneum. CT abdomen and pelvis recommended. Electronically Signed: Sho Milton MD at 22:44 EDT ,
[2024-04-20 22:16] VITALS: BP 137/75; PULSE 71; RESP 18; TEMP 37; O2SAT 97
[2024-04-20] MEDS: HYDROmorphone 1 MG/ML Syringe IV (22:47)
[2024-04-20] MEDS: Ondansetron 4 MG/2 ML Vial IV (22:47)
[2024-04-20] MEDS: 0.9% Normal Saline (1000mL) 1,000 ML 999 ML IV (22:47)
[2024-04-20 22:57] LABS: Absolute Lymphocyte Count 4.42 X10^3/uL (0.83-4.51); Absolute Neutrophil Count 5.9 X10^3/uL (2.0-7.7); Basophil# 0.07 X10^3/uL; Basophil% 0.6 % (0-1); Eosinophil# 0.35 X10^3/uL; Eosinophils% 3.1 % (0-5); Hematocrit 39.1 % (37-47); Hemoglobin 12.6 g/dL (12.0-15.0); Lymphocyte # 4.42 X10^3/ul (0.83-4.51); Lymphocyte % 38.6 % (19-41); Mean Corp Hgb Conc 32.2 g/dL (32-36); Mean Corpuscular Hgb 30.7 pg (27.0-32.0); Mean Corpuscular Volume 95.1 fL (81-99); Mean Platelet Vol. 10.9 fl (6.2-12.0); Monocyte# 0.65 X10^3/uL; Monocyte% 5.7 % (0-10); NRBC Flagged by Analyzer 0 % (0-5); Neutrophil # 5.92 X10^3/uL (2.7-7.7); Neutrophil % 51.7 % (47-70); Platelet Count 284 K/mm3 (150-450); RBC Distribution Width CV 12.2 % (11.6-14.6); RBC Distribution Width SD 42.2 fl (35.1-43.9); Red Blood Count 4.11 M/mm3 (4.2-5.4); White Blood Count 11.4 K/mm3 (4.4-11.0)
[2024-04-20 23:00] VITALS: BP 124/82; PULSE 70; RESP 18; TEMP 37; O2SAT 97
[2024-04-20 23:48] LABS: Anion Gap 5 (5-15); BUN 10 mg/dL (7-18); BUN/Creat Ratio 11.8 RATIO (10-20); Chloride 109 mmol/L (98-107); Creatinine, Serum 0.85 mg/dL (0.55-1.02); EST Glomerular Filtration Rate 78 mL/min (>60); Est Glom Filt Rate - Afr Amer 94 mL/min (>60); Estimated Creatinine Clearance 89.63 ml/min; Glucose 151 mg/dL (74-106); Magnesium 1.6 mg/dL (1.6-2.6); Potassium 3.6 mmol/L (3.5-5.1); Sodium Level 142 mmol/L (136-145)
[2024-04-21] VITALS: BP 126/80; PULSE 66; RESP 18; TEMP 36.9; O2SAT 99
--- NOTE | 2024-04-21 00:43 | EX.ED.DYSGE1 ---
HPI History of Present Illness Chief Complaint: Abd Pain Informant: patient and family Narrative Narrative: Patient is a 44-year-old female with past medical history of anxiety and depression as well as hypertension and [id number] diabetes. Patient underwent a diagnostic laparoscopic surgery 5 days ago in an attempt to potentially have a hysterectomy. 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 She states she has been taking Percocet at home for pain and been doing fiber supplements to try and help with constipation. However she has not had a bowel movement since last Friday and she has had increasing upper abdominal pain for the last 2 days and difficulty keeping food and fluid down secondary to this she presents for evaluation [facility] Medical History Injury of back Wears glasses Depression Anxiety Fatty liver High cholesterol Restless legs Back pain Smoker Leg cramps History of echocardiogram Polycystic ovaries History of pneumonia History of gallstones Migraines Diabetes Home Medications ?Medication ?Instructions ?Recorded ?Last Taken ?Type buspirone 30 mg tablet 30 mg PO BID 05/02/18 04/14/24 History tizanidine 4 mg tablet 4 mg PO BID PRN muscle spasticity 05/02/18 04/14/24 History acetaminophen 650 mg/20.3 mL oral 500 mg (15.6154 mL) PO Q4H PRN PRN 11/16/18 Unknown Rx solution Headache/Temp>99F ibuprofen 600 mg tablet 600 mg PO 4X/DAY PRN Headache #1 11/16/18 Unknown Rx TAB multivitamin 1 tab PO DAILY 11/24/18 04/14/24 History simvastatin 40 mg tablet 40 mg PO QHS 05/19/21 04/14/24 History amitriptyline 50 mg tablet 100 mg PO QHS 06/12/21 04/14/24 History omega-3 fatty acids 1,000 mg 1,200 mg PO BID 06/12/21 04/10/24 History capsule (Fish Oil Concentrate) rimegepant 75 mg disintegrating 75 mg PO DAILY PRN migraine 08/29/22 Unknown Rx tablet (Nurtec ODT) headache #16 tabs topiramate 100 mg tablet 100 mg PO BID #60 tabs 08/29/22 04/14/24 Rx propranolol 20 mg tablet 20 mg PO Q12H migraine 04/05/24 04/14/24 History venlafaxine 37.5 mg 37.5 mg PO DAILY 04/05/24 04/14/24 History capsule,extended release 24 hr oxycodone-acetaminophen 5 mg-325 1 tab PO Q6H PRN pain 7 days #10 04/15/24 Unknown Rx mg tablet (Percocet) tabs cholecalciferol (vitamin D3) 125 125 mcg PO DAILY 04/20/24 Unknown History mcg (5,000 unit) tablet (Vitamin D3) desvenlafaxine succinate 25 mg 25 mg PO DAILY 04/20/24 Unknown History tablet,extended release 24 hr metformin 1,000 mg tablet 1,000 mg PO BID 04/20/24 Unknown History oxycodone-acetaminophen 5 mg-325 1 tab PO Q6H PRN pain 3 days #12 04/21/24 Unknown Rx mg tablet (Percocet) tabs Allergy/AdvReac Type Severity Reaction Status Date / Time doxycycline Allergy Hives Verified 04/20/24 21:14 moxifloxacin HCl (From Allergy Hives Verified 04/20/24 21:14 Avelox) Penicillins (PCN) Allergy Hives Verified 04/20/24 21:14 Surgical History History of colonoscopy History of dilation and curettage History of selective injection of anesthetic agent around lumbar nerve root History of tonsillectomy and adenoidectomy History of section History of cholecystectomy Social History Smoking Status: Current every day smoker tobacco type: e-cigarettes Tobacco: How many years used: 6 Smokeless tobacco user: other Electronic Cigarette Use: with nicotine second hand exposure: No alcohol intake: never substance use type: does not use dillon/mosque: None seatbelt use: always ROS ROS ED Constitutional Constitutional ED: Denies chills or fever(s) Eyes Eyes: Denies blurry vision or change in vision ENT ENT ED: Denies sore throat Cardiovascular Cardiovascular: Denies chest pain Respiratory/Chest Respiratory/Chest: Denies cough or dyspnea Gastrointestinal Gastrointestinal: Reports abdominal pain, constipation, nausea and vomiting; Denies diarrhea Genitourinary Genitourinary ED: Denies dysuria or hematuria Musculoskeletal Musculoskeletal: Denies myalgias Integumentary Denies rash Neurologic Neurologic: Denies headache(s) Hematologic/Lymphatic Hematologic/Lymphatic: Denies easy bleeding or easy bruising EXAM Physical Exam Const Vital Signs: 04/20/24 21:14 04/20/24 21:16 04/20/24 22:16 Temperature 97.1 F L 97.1 F L 98.6 F Temperature Source Temporal Temporal Oral Pulse Rate 77 77 71 Respiratory Rate 18 18 18 Blood Pressure 135/97 H 137/75 H 137/75 H Blood Pressure Mean 109 95 95 Pulse Ox 96 98 97 Oxygen Delivery Method Room Air Room Air Room Air 04/20/24 23:00 04/21/24 00:00 04/21/24 01:00 Temperature 98.6 F 98.5 F Temperature Source Oral Oral Pulse Rate 70 66 64 Respiratory Rate 18 18 18 Blood Pressure 124/82 H 126/80 H 133/84 H Blood Pressure Mean 96 95 100 Pulse Ox 97 99 99 Oxygen Delivery Method Room Air Room Air Room Air Positive well nourished, well developed and obese General Appearance ED: well developed; Negative for pallor Nutritional Appearance: obese HEENT Reports dry mucous membranes HEENT Narrative: Mucous membranes are dry and tacky No tongue or lip swelling no oral lesions no airway edema or compromise No secondary findings in the posterior pharynx to suggest infection Mouth ED: Yes dry mucous membranes Mouth: dry mucous membranes Eyes PERRL and EOMs intact bilaterally General Eye ED: Negative for scleral icterus Neck supple Neck Narrative: No nuchal rigidity or meningeal signs Resp normal respiratory effort and clear to auscultation bilaterally Cardio regular rate and regular rhythm Rate: other Other Details: No murmurs rubs or gallops Radial and carotid pulses are equal and symmetric GI non-distended GI Narrative: Abdomen is obese soft and nondistended with hypoactive bowel sounds. There is mild diffuse pain with palpation without voluntary guarding or rigidity. No peritoneal signs or pulsatile mass. Abdominal wounds from the surgery are clean dry and intact without secondary findings to suggest infection Auscultation: hypoactive bowel sounds Palpation: soft Extremity normal to inspection Neuro oriented x3, CN's II-XII intact bilaterally and no sensory deficits noted Sensorium / Orientation: alert Motor Exam: strength 5/5 throughout Psych mental status grossly normal Skin no rashes or lesions noted Skin Narrative: Skin turgor is increased General Skin Exam: Negative for jaundice or pallor MDM MDM MDM Narrative Medical decision making narrative: Patient presented to the ER mildly hypertensive otherwise with stable vitals. She reported generalized abdominal discomfort and constipation and with her recent surgery there is concern for potential secondary infection versus postoperative ileus versus constipation versus small bowel obstruction. As she states she has not been eating or drinking well I will there is concern for acute kidney injury or severe electrolyte abnormality. Therefore basic labs were obtained as well as a KUB. Labs revealed no clinically significant finding and x-ray shows postoperative changes consistent with air but no signs of acute infection or obstruction. After receiving hydration and pain medication the patient reported resolution of symptoms. On reevaluation her abdomen remains soft and nonsurgical. Therefore at this time I do not feel there is need for CT scan or further workup as symptoms have resolved vitals are stable and exam is consistent with her postoperative timeframe. She was instructed on symptomatic care and is otherwise safe for discharge History & Record Review Discussion w/independent historian: Patient Lab Data Attestation: I reviewed the patient's lab results. Labs: Laboratory Results - last 24 hr 04/20/24 22:47 WBC 11.4 H RBC 4.11 L Hgb 12.6 Hct 39.1 MCV 95.1 MCH 30.7 MCHC 32.2 RDW Std Deviation 42.2 RDW Coeff of Sweta 12.2 Plt Count 284 MPV 10.9 Immature Gran % (Auto) 0.300 Neut % (Auto) 51.7 Lymph % (Auto) 38.6 [place] % (Auto) 5.7 Eos % (Auto) 3.1 Baso % (Auto) 0.6 Absolute Neuts (auto) 5.9 Absolute Lymphs (auto) 4.42 Nucleated RBC % 0 Sodium 142 Potassium 3.6 Chloride 109 H Carbon Dioxide 28.0 Anion Gap 5 BUN 10 Creatinine 0.85 Estim Creat Clear Calc 89.63 Est GFR (MDRD) Af Amer 94 Est GFR (MDRD) Non-Af 78 BUN/Creatinine Ratio 11.8 Glucose 151 H Calcium 9.0 Magnesium 1.6 Radiography Diagnostic Testing: Clinical Impression(s) from Imaging Studies Abdomen X-Ray 04/20/24 22:00 IMPRESSION: Findings suspicious for pneumoperitoneum. CT abdomen and pelvis recommended. Electronically Signed: Sho Milton MD at 22:44 EDT , ADDENDUM: 04/20/24 2256 IMPRESSION: Findings suspicious for pneumoperitoneum. CT abdomen and pelvis recommended. N.B. : The above Results were Read Back by Sho Milton MD to Lloyd Thomas MD, and understanding confirmed on 04/20/2024 22:49:31 (ET). Electronically Signed: Sho Milton MD at 22:44 EDT , Abdominal x-ray as interpreted by the emergency medicine physician reveals free air consistent with recent surgical procedure without signs of obstruction or significant constipation Discharge Plan Triage Chief Complaint: Abd Pain Other Complaint: Constipation ED Provider: Lloyd Thomas Dx/Rx/DC Orders Clinical Impression: Acute postoperative abdominal pain, Postoperative ileus, Anxiety and depression, Benign essential HTN, DM2 (diabetes mellitus, type 2) Instructions: Abdominal Pain, Ileus Prescriptions: New oxycodone-acetaminophen [Percocet] 5-325 mg tablet 1 tab PO Q6H PRN (Reason: pain) 3 Days Qty: 12 0RF No Action multivitamin tablet 1 tab PO DAILY amitriptyline 50 mg tablet 100 mg PO QHS omega-3 fatty acids [Fish Oil Concentrate] 1,000 mg capsule 1,200 mg PO BID Nurtec ODT 75 mg tablet,disintegrating 75 mg PO DAILY PRN (Reason: migraine headache) Qty: 16 9RF topiramate 100 mg tablet 100 mg PO BID Qty: 60 9RF tizanidine 4 MG tablet 4 mg PO BID PRN (Reason: muscle spasticity) Patient Comments: take 1 tablet by mouth twice a day if needed buspirone 30 MG tablet 30 mg PO BID Patient Comments: take 1 tablet by mouth twice a day acetaminophen 650 MG/20 ML solution 500 mg PO Q4H PRN PRN (Reason: Headache/Temp>99F) 0RF ibuprofen 600 MG tablet 600 mg PO 4X/DAY PRN (Reason: Headache) Qty: 1 0RF simvastatin 40 mg tablet 40 mg PO QHS Patient Comments: take 1 tablet by mouth at bedtime venlafaxine 37.5 mg capsule,extended release 24hr 37.5 mg PO DAILY propranolol 20 mg tablet 20 mg PO Q12H oxycodone-acetaminophen [Percocet] 5-325 mg tablet 1 tab PO Q6H PRN (Reason: pain) 7 Days Qty: 10 0RF metformin 1,000 mg tablet 1,000 mg PO BID cholecalciferol (vitamin D3) [Vitamin D3] 125 mcg (5,000 unit) tablet 125 mcg PO DAILY desvenlafaxine succinate 25 mg tablet extended release 24 hr 25 mg PO DAILY Primary Care Provider: Albert Ferrer Referrals: Albert Ferrer, PA [Primary Care Provider] - Activity Restrictions/Additional Instructions: Please keep yourself hydrated and continue with MiraLAX and/or a fiber supplement to stimulate your intestines and resolve your ileus. Follow-up with your surgeon as directed and return to the ER should you have any further concerns Print Language: Djiboutian Disposition Disposition: Home, Self Care Discharge Date/Time: 04/21/24 01:07
[2024-04-21 01:00] VITALS: BP 133/84; PULSE 64; RESP 18; O2SAT 99
== END 2024-04-21 01:07 | disposition home or self-care (01) ==
PROVIDERS: Emergency Provider Emergency Medicine; PCP Physician Assistant; Visit Provider Emergency Medicine
DX: K56.7 Ileus, unspecified (principal); E11.9 Type 2 diabetes mellitus without complications; F32.A Depression, unspecified; F17.290 Nicotine dependence, other tobacco product, uncomplicated; I10 Essential (primary) hypertension; F41.9 Anxiety disorder, unspecified; E78.00 Pure hypercholesterolemia, unspecified; Z98.890 Other specified postprocedural states; Z79.899 Other long term (current) drug therapy; Z79.84 Long term (current) use of oral hypoglycemic drugs; E66.9 Obesity, unspecified; K66.8 Other specified disorders of peritoneum; K91.89 Other postprocedural complications and disorders of digestive system; R10.9 Unspecified abdominal pain; G89.18 Other acute postprocedural pain
CPT/HCPCS: 74019; 80048; 83735; 85025; 96361; 96374; 96375; 99283; J7030; A4216; J2405

== ENCOUNTER 2025-01-17 18:26 | Emergency (ER) | payer OTHER, SELFPAY ==
[2025-01-17] VITALS (7 sets, daily range): BP systolic 133–150; BP diastolic 73–98; PULSE 64–73; RESP 16–18; TEMP 36.6–36.8; O2SAT 95–100; BMI 35.7
--- NOTE | 2025-01-17 18:39 | EX.ED.DYSGE1 ---
HPI History of Present Illness Chief Complaint: Flank Pain Informant: patient Onset/Context/Timing Onset: Weeks (1-09/02) Context: Gradual Onset Timing: Waxes and wanes Quality: Cramping, sharp Location: Right flank and right lower abdomen Worsened by: Nothing Relieved by: Pain medication Narrative Narrative: Patient presents with right flank and right lower quadrant pain that has been waxing and waning over the past week and a half. Patient describes it as cramping and sharp. Patient states it is over the right flank and right lower abdomen. Patient states she has taken some pain medication at home which has been helping. Patient states nothing makes her pain worse. Patient admits to some nausea but denies any vomiting. Patient also admits to a mild headache. Patient denies any fevers or chills. Patient denies any dysuria or hematuria. [facility] Medical History Injury of back Wears glasses Depression Anxiety Fatty liver High cholesterol Restless legs Back pain Smoker Leg cramps History of echocardiogram Polycystic ovaries History of pneumonia History of gallstones Migraines Diabetes Home Medications ?Medication ?Instructions ?Recorded ?Last Taken ?Type buspirone 30 mg tablet 30 mg PO BID 05/02/18 04/14/24 History tizanidine 4 mg tablet 4 mg PO BID PRN muscle spasticity 05/02/18 04/14/24 History acetaminophen 650 mg/20.3 mL oral 500 mg (15.6154 mL) PO Q4H PRN PRN 11/16/18 Unknown Rx solution Headache/Temp>99F ibuprofen 600 mg tablet 600 mg PO 4X/DAY PRN Headache #1 11/16/18 Unknown Rx TAB multivitamin 1 tab PO DAILY 11/24/18 04/14/24 History simvastatin 40 mg tablet 40 mg PO QHS 05/19/21 04/14/24 History amitriptyline 50 mg tablet 100 mg PO QHS 06/12/21 04/14/24 History omega-3 fatty acids 1,000 mg 1,200 mg PO BID 06/12/21 04/10/24 History capsule (Fish Oil Concentrate) rimegepant 75 mg disintegrating 75 mg PO DAILY PRN migraine 08/29/22 Unknown Rx tablet (Nurtec ODT) headache #16 tabs topiramate 100 mg tablet 100 mg PO BID #60 tabs 08/29/22 04/14/24 Rx propranolol 20 mg tablet 20 mg PO Q12H migraine 04/05/24 04/14/24 History venlafaxine 37.5 mg 37.5 mg PO DAILY 04/05/24 04/14/24 History capsule,extended release 24 hr cholecalciferol (vitamin D3) 125 125 mcg PO DAILY 04/20/24 Unknown History mcg (5,000 unit) tablet (Vitamin D3) desvenlafaxine succinate 25 mg 25 mg PO DAILY 04/20/24 Unknown History tablet,extended release 24 hr metformin 1,000 mg tablet 1,000 mg PO BID 04/20/24 Unknown History oxycodone-acetaminophen 5 mg-325 1 tab PO Q6H PRN pain 3 days #12 04/21/24 Unknown Rx mg tablet (Percocet) tabs oxycodone-acetaminophen 5 mg-325 1 tab PO Q6H PRN pain 3 days #10 01/17/25 Unknown Rx mg tablet (Percocet) tabs Allergy/AdvReac Type Severity Reaction Status Date / Time doxycycline Allergy Hives Verified 01/17/25 18:28 moxifloxacin HCl (From Allergy Hives Verified 01/17/25 18:28 Avelox) Penicillins (PCN) Allergy Hives Verified 01/17/25 18:28 Surgical History History of colonoscopy History of dilation and curettage History of selective injection of anesthetic agent around lumbar nerve root History of tonsillectomy and adenoidectomy History of section History of cholecystectomy Social History Smoking Status: Current every day smoker tobacco type: e-cigarettes Tobacco: How many years used: 6 Smokeless tobacco user: other Electronic Cigarette Use: with nicotine second hand exposure: No alcohol intake: never substance use type: does not use dillon/quaker: None seatbelt use: always ROS ROS ED Constitutional Constitutional ED: Denies chills or fever(s) Eyes Eyes: Denies blurry vision or change in vision ENT ENT ED: Denies rhinorrhea or sore throat Cardiovascular Cardiovascular: Denies chest pain or palpitations Respiratory/Chest Respiratory/Chest: Denies cough or dyspnea Gastrointestinal Gastrointestinal: Reports abdominal pain and nausea; Denies vomiting Genitourinary Genitourinary ED: Denies dysuria or hematuria Musculoskeletal Musculoskeletal: Reports back pain; Denies neck pain Integumentary Denies abscess or rash Neurologic Neurologic: Reports headache(s); Denies weakness Allergic/Immunologic Allergic/Immunologic ED: Denies mouth swelling or urticaria EXAM Physical Exam Const Vital Signs: 01/17/25 18:27 01/17/25 18:30 01/17/25 20:18 Temperature 98.3 F 98.3 F 98.0 F Temperature Source Oral Oral Oral Pulse Rate 73 73 68 Respiratory Rate 16 16 16 Blood Pressure 146/98 H 146/98 H 150/76 H Blood Pressure Mean 114 114 100 Pulse Ox 100 100 97 Oxygen Delivery Method Room Air Room Air Room Air 01/17/25 21:00 01/17/25 22:00 Temperature 98 F 98.2 F Temperature Source Oral Oral Pulse Rate 64 67 Respiratory Rate 16 17 Blood Pressure 133/73 H 134/87 H Blood Pressure Mean 93 102 Pulse Ox 100 97 Oxygen Delivery Method Room Air Positive well nourished and well developed General Appearance ED: well developed and NAD HEENT Reports moist mucous membranes Neck supple and no JVD Resp normal respiratory effort and clear to auscultation bilaterally Cardio regular rate and regular rhythm GI non-distended Auscultation: normoactive bowel sounds Palpation: soft and tender RLQ, McBurney's point, periumbilical and suprapubic; Negative for guarding Back/Spine General Back: CVA tenderness right Neuro oriented x3, CN's II-XII intact bilaterally and no sensory deficits noted Sensorium / Orientation: alert Motor Exam: strength 5/5 throughout Psych mental status grossly normal MDM MDM MDM Narrative Medical decision making narrative: Differential diagnosis includes ureteral calculus, pyelonephritis, urinary tract infection, appendicitis, colitis, diverticulitis, dehydration, and electrolyte abnormality. CT scan of the abdomen and pelvis will be obtained to assess for ureteral calculus, appendicitis, and pyelonephritis. CBC will be obtained to assess for leukocytosis and anemia. Basic metabolic profile will be obtained to assess for electrolyte abnormality and renal function. Urinalysis will be obtained to assess for urinary tract infection and hematuria. Serum hCG will be obtained to assess for . History & Record Review Additional record(s) reviewed:: Prior labs Lab Data Attestation: I reviewed the patient's lab results. Lab results narrative: CBC was reviewed. There is a mild leukocytosis of 13.0. This is consistent with previous results. Basic Bolick profile was reviewed and was within normal limits. Serum hCG was reviewed and was negative. Urinalysis was reviewed. There is no evidence of urinary tract infection or hematuria. Labs: Laboratory Results - last 24 hr 01/17/25 01/17/25 19:00 20:10 WBC 13.0 H RBC 4.51 Hgb 14.4 Hct 41.8 MCV 92.7 MCH 31.9 MCHC 34.4 RDW Std Deviation 41.7 RDW Coeff of Sweta 12.4 Plt Count 260 MPV 12.1 H Immature Gran % (Auto) 0.200 Neut % (Auto) 52.7 Lymph % (Auto) 40.0 [place] % (Auto) 4.9 Eos % (Auto) 1.7 Baso % (Auto) 0.5 Absolute Neuts (auto) 6.8 Absolute Lymphs (auto) 5.18 H Nucleated RBC % 0 Platelet Estimate ADEQUATE Sodium 137 Potassium 3.9 Chloride 104 Carbon Dioxide 18.8 L Anion Gap 15 BUN 16 Creatinine 1.00 Estim Creat Clear Calc 74.27 Est GFR (MDRD) Non-Af 71 BUN/Creatinine Ratio 16.3 Glucose 135 H Calcium 9.6 Serum , Qual NEGATIVE Urine Color Straw Urine Clarity Clear Urine pH 7.0 Ur Specific [place] 1.010 Urine Protein 15 H Urine Glucose (UA) 1000 H Urine Ketones 15 H Urine Occult Blood Negative Urine Nitrite Negative Urine Bilirubin Negative Urine Urobilinogen Normal Ur Leukocyte Esterase Negative Urine RBC 0 SEEN Urine WBC 0-5 SEEN Ur Squamous Epith Cells 0-5 SEEN Ur Transition Epith Cell 0-5 SEEN Urine Bacteria 0 SEEN Urine Mucus 0 SEEN Radiography Diagnostic Testing: Clinical Impression(s) from Imaging Studies Abdomen/Pelvis CT 01/17/25 19:14 IMPRESSION: 1. Heterogeneous lesion in the rectouterine pouch measuring up to 6.9 cm, favored to be uterine or ovarian in origin, though the sigmoid colon is also in close proximity. Recommend pelvic ultrasound for further evaluation. 2. Punctate 2 mm nonobstructing stone in the right kidney. No hydronephrosis. Reading Location: [facility] Transvaginal US 01/17/25 20:36 IMPRESSION: Multilocular cyst with solid components, which appears to arise from the right ovary and measures up to 7.9 cm in aggregate size. Findings are consistent with O-RADS 5 classification (High Risk). Recommend [facility] referral. Yellow Alert: High Risk ovarian mass The critical information above was relayed directly by me by telephone to Jostin Stone on 01/17/2025 at 10:18 pm with readback verification. Reading Location: [id number] scan of the abdomen and pelvis was obtained. There is a 2 mm nonobstructing stone in the right kidney. There is no hydronephrosis. There is a heterogeneous lesion in the rectouterine pouch measuring 6.9 cm. Pelvic ultrasound was advised for further evaluation. This was interpreted by the radiologist and was also independently reviewed by myself. Pelvic ultrasound was obtained. There is a multilocular cyst with solid components which appears to arise from the right ovary. Findings are consistent with high risk for malignancy. This was interpreted by the radiologist and was also independently reviewed by myself. Treatment and Re-Evaluation :: Patient was given IV fluids, morphine, and Zofran. Patient started having itching after receiving morphine. Patient was given a dose of Benadryl. Patient was having some persistent pain. Patient was given a dose of Toradol. Patient was feeling better after this. Patient was advised of her findings. Patient was advised that there could be a malignancy of her ovary. Case was discussed with Dr. Luna from [facility]. She will arrange for close follow-up with the patient. She stated her office should call the patient tomorrow morning. Patient was instructed to call Dr. Luna as office if she does not hear from them before noon. Patient was given a prescription for short course of Percocet. Patient was given a note for work. Patient was instructed to return if worse in any way. Patient understood and was agreeable with the plan. All questions were answered. Discharge Plan Triage Chief Complaint: Flank Pain Other Complaint: Abd Pain ED Provider: Jostin Stone Dx/Rx/DC Orders Clinical Impression: Mass of right ovary, Benign essential HTN Instructions: ED Tumor, Uncertain Cause Prescriptions: Continued oxycodone-acetaminophen [Percocet] 5-325 mg tablet 1 tab PO Q6H PRN (Reason: pain) 3 Days Qty: 10 0RF No Action multivitamin tablet 1 tab PO DAILY amitriptyline 50 mg tablet 100 mg PO QHS omega-3 fatty acids [Fish Oil Concentrate] 1,000 mg capsule 1,200 mg PO BID Nurtec ODT 75 mg tablet,disintegrating 75 mg PO DAILY PRN (Reason: migraine headache) Qty: 16 9RF topiramate 100 mg tablet 100 mg PO BID Qty: 60 9RF tizanidine 4 MG tablet 4 mg PO BID PRN (Reason: muscle spasticity) Patient Comments: take 1 tablet by mouth twice a day if needed buspirone 30 MG tablet 30 mg PO BID Patient Comments: take 1 tablet by mouth twice a day acetaminophen 650 MG/20 ML solution 500 mg PO Q4H PRN PRN (Reason: Headache/Temp>99F) 0RF ibuprofen 600 MG tablet 600 mg PO 4X/DAY PRN (Reason: Headache) Qty: 1 0RF simvastatin 40 mg tablet 40 mg PO QHS Patient Comments: take 1 tablet by mouth at bedtime venlafaxine 37.5 mg capsule,extended release 24hr 37.5 mg PO DAILY propranolol 20 mg tablet 20 mg PO Q12H metformin 1,000 mg tablet 1,000 mg PO BID cholecalciferol (vitamin D3) [Vitamin D3] 125 mcg (5,000 unit) tablet 125 mcg PO DAILY desvenlafaxine succinate 25 mg tablet extended release 24 hr 25 mg PO DAILY oxycodone-acetaminophen [Percocet] 5-325 mg tablet 1 tab PO Q6H PRN (Reason: pain) 3 Days Qty: 12 0RF Primary Care Provider: Myranda Lamas Referrals: Amber Luna DO [Med Staff - Active Staff] - As soon as possible Albert Ferrer PA [Non-Staff] - Print Language: Chinese Disposition Disposition: Home, Self Care
[2025-01-17] MEDS: Ondansetron 4 MG/2 ML Vial IV (19:11)
[2025-01-17] MEDS: 0.9% Normal Saline (1000mL) 1,000 ML 999 ML IV (19:11)
[2025-01-17] MEDS: Morphine 4 MG/ML Syringe IV (19:11)
--- NOTE | 2025-01-17 19:14 | CT_ITS ---
PROCEDURE: ABDOMEN/PELVIS WITHOUT CONT 01/17/2025 REASON FOR EXAM: PAIN TECHNIQUE: Abdomen and pelvis CT without intravenous contrast. Noncontrast technique limits evaluation of the abdominal and pelvic viscera. Coronal and Sagittal reconstruction series were provided. One or more dose reduction techniques were used (e.g., Automated exposure control, adjustment of the mA and/or kV according to patient size, use of iterative reconstruction technique). PATIENT PREPARATION: Per protocol CTDIvol: 21.0 mGy DLP: 1083 mGy-cm COMPARISON: Abdominal radiographs 04/20/2024 FINDINGS: Lung bases: Unremarkable Liver: Normal size. No obvious mass. Gallbladder: Not visualized Spleen: Normal size. Pancreas: Normal size. No surrounding inflammation. Adrenals: Unremarkable Kidneys: Nonobstructing stone measuring 2 mm in the right kidney. No hydronephrosis. Bladder: Unremarkable. Reproductive Organs: Heterogeneous lesion in the right posterior pelvis, posterior to the lower uterine segment and cervix, measuring 6.9 x 6.5 by 3.7 cm. Bowel: No obstruction or inflammation. Normal appendix. Lymph nodes: No lymphadenopathy. Vasculature: Unremarkable Bones: Unremarkable CT/Abdomen/Pelvis without Cont IMPRESSION: 1. Heterogeneous lesion in the rectouterine pouch measuring up to 6.9 cm, favo red to be uterine or ovarian in origin, though the sigmoid colon is also in close proximity. Recommend pelvic ultrasound for furt her evaluation. 2. Punctate 2 mm nonobstructing stone in the right kidney. No hydronephrosis. Reading Location: [id number]
[2025-01-17 19:27] LABS: Absolute Lymphocyte Count 5.18 X10^3/uL (0.83-4.51); Absolute Neutrophil Count 6.8 X10^3/uL (2.0-7.7); Basophil# 0.06 X10^3/uL; Basophil% 0.5 % (0-1); Eosinophil# 0.22 X10^3/uL; Eosinophils% 1.7 % (0-5); Hematocrit 41.8 % (37-47); Hemoglobin 14.4 g/dL (12.0-15.0); Lymphocyte # 5.18 X10^3/ul (0.83-4.51); Mean Corp Hgb Conc 34.4 g/dL (32-36); Mean Corpuscular Hgb 31.9 pg (27.0-32.0); Mean Corpuscular Volume 92.7 fL (81-99); Mean Platelet Vol. 12.1 fl (6.2-12.0); Monocyte# 0.63 X10^3/uL; Monocyte% 4.9 % (0-10); NRBC Flagged by Analyzer 0 % (0-5); Neutrophil # 6.84 X10^3/uL (2.7-7.7); Neutrophil % 52.7 % (47-70); POSITIVE DIFFERENTIAL YES; POSITIVE MORPHOLOGY YES; Platelet Count 260 K/mm3 (150-450); RBC Distribution Width CV 12.4 % (11.6-14.6); RBC Distribution Width SD 41.7 fl (35.1-43.9); Red Blood Count 4.51 M/mm3 (4.2-5.4)
[2025-01-17 19:32] LABS: Differential Indicated SCAN CRITERIA MET
[2025-01-17] MEDS: DiphenhydrAMINE 50 MG/ML Syringe 25 MG IV (20:01)
[2025-01-17 20:16] LABS: Bacteria 0 SEEN /hpf (None Seen); Mucous, Urine 0 SEEN /hpf (<or=2+); Red Blood Cells-Urine 0 SEEN /hpf (0-5)
[2025-01-17 20:20] LABS: Anion Gap 15 (5-15); BUN 16 mg/dL (4-19); BUN/Creat Ratio 16.3 RATIO (10-20); Calcium,Total 9.6 mg/dL (7.6-11.0); Carbon Dioxide 18.8 mmol/L (21.0-32.0); Chloride 104 mmol/L (98-108); EST Glomerular Filtration Rate 71 (>60); Estimated Creatinine Clearance 74.27 ml/min (50-250); Glucose 135 mg/dL (70-99); Potassium 3.9 mmol/L (3.3-5.1); Sodium Level 137 mmol/L (133-145)
--- NOTE | 2025-01-17 20:36 | US_ITS ---
PROCEDURE: TRANSVAGINAL NON- 01/17/2025 REASON FOR EXAM: PELVIC MASS TECHNIQUE: Transabdominal and transvaginal pelvic ultrasound. Color and spectral doppler analysis of the ovaries. COMPARISON: CT abdomen and pelvis 01/17/2025 FINDINGS: Measurements: Uterus: 7.2 x 4.3 x 5.1 cm for volume of 82.0 mL Endometrial Thickness: 0.9 cm Right Ovary: 7.9 x 3.7 x 7.2 cm for volume of 109.8 mL Left Ovary: 3.2 x 1.9 x 2.4 cm for volume of 7.8 mL Uterus: Anteverted. Normal contour and myometrial echotexture. Endometrium: Normal echotexture. Right ovary: There is a multilocular cystic lesion which appears to arise from the right ovary. There is a cystic component containing low lying internal echoes measuring 3.9 x 3.3 cm, with a solid papillary projection measuring 1.6 cm and containing internal color flow (color score 3-4), without significant posterior shadowing of the solid component. On the cinematic imaging there are additional papillary projections noted within the cystic spaces. Left ovary: Normal size and echotexture. Arterial and venous waveforms are identified within both ovaries. Cul-de-sac: No free intraperitoneal fluid identified. US/Transvaginal Non- IMPRESSION: Multilocular cyst with solid components, which appears to arise from the right ovary and measures up to 7.9 cm in aggregate size. Findings are consistent with O-RADS 5 classification (High Risk). Recommend Gy n-Oncology referral. Yellow Alert: High Risk ovarian mass The critical information above was relayed directly by me by telephone to Jostin Duncan on 01/17/2025 at 10:18 pm with readback verification. Reading Location: [id number]
[2025-01-17 20:49] LABS: Color, Urine Straw (Yellow); Glucose, Dipstick 1000 mg/dl (Normal); Ketone-Dipstick 15 mg/dl (Negative); Leukocyte Esterase-Dipstick Negative /ul (Negative); Nitrite-Dipstick Negative (Negative); Occult Blood-Urine Negative /ul (Negative); Protein-Dipstick 15 mg/dl (Negative); Urine Bilirubin Dipstick Negative (Negative); Urine Clarity Clear (Clear); Urine Urobilinogen Normal (Normal)
[2025-01-17 20:49] LABS: Internal QC Validated? YES +Cl - CLEAR BKGD; Pregnancy, Serum, hCG Quali. NEGATIVE Negative
[2025-01-17 20:50] LABS: Record Kit Lot#, Serum Preg. 947241
[2025-01-17] MEDS: Ketorolac 30 MG/ML Syringe IV (21:00)
[2025-01-17 21:39] LABS: Platelet Estimate ADEQUATE (ADEQ)
[2025-01-17 21:50] LABS: Squamous Epithelial Cells - UA 0-5 SEEN /hpf (5-10); Transitional Epithelial - Ur 0-5 SEEN /hpf (0-5); White Blood Cells 0-5 SEEN /hpf (0-5)
== END 2025-01-17 23:09 | disposition home or self-care (01) ==
PROVIDERS: Emergency Provider Emergency Medicine; PCP Clinical Nurse Specialist Adult Health; Visit Provider Emergency Medicine
DX: N83.201 Unspecified ovarian cyst, right side (principal); E11.9 Type 2 diabetes mellitus without complications; I10 Essential (primary) hypertension; E78.00 Pure hypercholesterolemia, unspecified; R51.9 Headache, unspecified; R11.0 Nausea; F17.290 Nicotine dependence, other tobacco product, uncomplicated; D72.829 Elevated white blood cell count, unspecified; N20.0 Calculus of kidney
CPT/HCPCS: 74176; 76830; 80048; 81001; 84703; 85025; 96361; 96374; 96375; 99283; A4216; J2405

== ENCOUNTER 2025-01-30 13:51 | Emergency (ER) | payer OTHER, SELFPAY ==
[2025-01-30 13:51] VITALS: BP 123/103; PULSE 73; RESP 16; TEMP 37.1; O2SAT 98
--- NOTE | 2025-01-30 14:20 | EX.ED.DYSGE1 ---
HPI <WILBERTO Baron - Last Filed: 01/30/25 17:28> History of Present Illness Chief Complaint: Abd Pain Narrative Narrative: 45-year-old female developed right lower quadrant pain 3 weeks ago. She was seen in [place] ED on 01/[address] scan and transvaginal ultrasound showing a right ovarian mass of unknown etiology but could be neoplastic. She was prescribed [place] and finished it. She has Percocet from pain management for chronic back issues which she normally only takes 1-2 times a week but she has been taking it every 6 hours. She accidentally rolled out of bed 3 days ago and this worsened her right lower quadrant pain. She feels a lot of pressure and pain with walking. She has an appointment with [facility] oncology next week. She denies fever or chills. No nausea or vomiting. No bladder or bowel symptoms. She has a history of cholecystectomy and x 1. She states they tried to do a laparoscopy and hysterectomy but were unable to due to scar tissue. [facility] <WILBERTO Baron - Last Filed: 01/30/25 17:28> [facility] Medical History Injury of back Wears glasses Depression Anxiety Fatty liver High cholesterol Restless legs Back pain Smoker Leg cramps History of echocardiogram Polycystic ovaries History of pneumonia History of gallstones Migraines Diabetes Home Medications ?Medication ?Instructions ?Recorded ?Last Taken ?Type buspirone 30 mg tablet 30 mg PO BID 05/02/18 04/14/24 History tizanidine 4 mg tablet 4 mg PO BID PRN muscle spasticity 05/02/18 04/14/24 History acetaminophen 650 mg/20.3 mL oral 500 mg (15.6154 mL) PO Q4H PRN PRN 11/16/18 Unknown Rx solution Headache/Temp>99F ibuprofen 600 mg tablet 600 mg PO 4X/DAY PRN Headache #1 11/16/18 Unknown Rx TAB multivitamin 1 tab PO DAILY 11/24/18 04/14/24 History simvastatin 40 mg tablet 40 mg PO QHS 05/19/21 04/14/24 History amitriptyline 50 mg tablet 100 mg PO QHS 06/12/21 04/14/24 History omega-3 fatty acids 1,000 mg 1,200 mg PO BID 06/12/21 04/10/24 History capsule (Fish Oil Concentrate) rimegepant 75 mg disintegrating 75 mg PO DAILY PRN migraine 08/29/22 Unknown Rx tablet (Nurtec ODT) headache #16 tabs topiramate 100 mg tablet 100 mg PO BID #60 tabs 08/29/22 04/14/24 Rx propranolol 20 mg tablet 20 mg PO Q12H migraine 04/05/24 04/14/24 History venlafaxine 37.5 mg 37.5 mg PO DAILY 04/05/24 04/14/24 History capsule,extended release 24 hr cholecalciferol (vitamin D3) 125 125 mcg PO DAILY 04/20/24 Unknown History mcg (5,000 unit) tablet (Vitamin D3) desvenlafaxine succinate 25 mg 25 mg PO DAILY 04/20/24 Unknown History tablet,extended release 24 hr metformin 1,000 mg tablet 1,000 mg PO BID 04/20/24 Unknown History oxycodone-acetaminophen 5 mg-325 1 tab PO Q6H PRN pain 3 days #12 04/21/24 Unknown Rx mg tablet (Percocet) tabs oxycodone-acetaminophen 5 mg-325 1 tab PO Q6H PRN pain 3 days #10 01/17/25 Unknown Rx mg tablet (Percocet) tabs Allergy/AdvReac Type Severity Reaction Status Date / Time doxycycline Allergy Hives Verified 01/30/25 13:51 morphine Allergy Rash Verified 01/30/25 14:44 moxifloxacin HCl (From Allergy Hives Verified 01/30/25 13:51 Avelox) Penicillins (PCN) Allergy Hives Verified 01/30/25 13:51 Surgical History History of colonoscopy History of dilation and curettage History of selective injection of anesthetic agent around lumbar nerve root History of tonsillectomy and adenoidectomy History of section History of cholecystectomy Social History Smoking Status: Current every day smoker tobacco type: e-cigarettes Tobacco: How many years used: 6 Smokeless tobacco user: other Electronic Cigarette Use: with nicotine second hand exposure: No alcohol intake: never substance use type: does not use dillon/pentecostal: None seatbelt use: always ROS <WILBERTO Baron - Last Filed: 01/30/25 17:28> ROS ED ROS Narrative Constitutional: Negative for fever, chills, malaise. GI: Positive for abdominal pain. Negative for nausea, vomiting, diarrhea, constipation, melena, hematochezia. : Negative for dysuria, hematuria or frequency. EXAM <WILBERTO Baron - Last Filed: 01/30/25 17:28> Physical Exam Narrative Exam Narrative: CONST: Patient sitting in no acute distress. EYES: Normal inspection. NECK: Normal inspection. RESP: No respiratory distress, CTAB. CVS: Regular rate and rhythm, no murmur, no gallop. ABD: Soft with RLQ tenderness and palpable mass, no guarding or rebound, nondistended, no hepatosplenomegaly. SKIN: Color normal, no rash, warm, dry, intact. EXTREMITIES: Normal appearance, no pedal edema. NEURO: Alert and answering questions appropriately. PSYCH: Normal affect. Const Vital Signs: 01/30/25 13:51 01/30/25 15:42 Temperature 98.7 F Temperature Source Oral Pulse Rate 73 59 L Respiratory Rate 16 18 Blood Pressure 123/103 H 128/88 H Blood Pressure Mean 109 101 Pulse Ox 98 99 Oxygen Delivery Method Room Air Room Air <Dr. Bryson Treviño MD - Last Filed: 01/30/25 15:05> Physical Exam Const Vital Signs: 01/30/25 13:51 01/30/25 15:42 Temperature 98.7 F Temperature Source Oral Pulse Rate 73 59 L Respiratory Rate 16 18 Blood Pressure 123/103 H 128/88 H Blood Pressure Mean 109 101 Pulse Ox 98 99 Oxygen Delivery Method Room Air Room Air MDM <WILBERTO Baron - Last Filed: 01/30/25 17:28> MDM MDM Narrative Medical decision making narrative: History gathered from: Patient and spouse Differential includes but not limited to pain from right ovarian mass, ovarian torsion 45-year-old female with 3 weeks of right lower quadrant abdominal pain. She had a CT scan and transvaginal ultrasound recently showing a right ovarian mass and is scheduled to follow-up with oncology for evaluation next week. She returns for increased pain with no other associated symptoms. She is on Percocet from pain management for chronic back issues. She appears well and nontoxic. Vital stable. Abdomen is soft with RLQ tenderness and a palpable mass. No peritoneal signs. CBC, BMP, and urinalysis are all negative. Since she had a large mass seen on prior ultrasound the main concern is to rule out an ovarian torsion. Transvaginal ultrasound shows again a right ovarian mass and the ovary has preserved blood flow. No other acute abnormalities. I do not think she needs a CT scan as she has no new symptoms, no vomiting or signs of bowel obstruction. Patient was treated with IV morphine, Toradol, and Zofran with improvement. Since she is in pain management I cannot prescribe narcotics. I recommended she call Dr. Perez tomorrow to discuss this new diagnosis and possible medication changes for better pain control. She will also follow-up with oncology as scheduled. She was discharged in stable condition. I have personally performed a face to face assessment of the patient and have reviewed the CAROLINE Note. I performed a substantive portion of the visit including all aspects of the following. My alvarez findings include: History is 45-year-old female with known either ovarian cyst or mass. Diagnosed on CAT scan and ultrasound on the . She has appointment to see [facility] [employer] this Friday. Return for increased pain. No fever or dysuria. Recent labs are unremarkable. Exam is [45-year-old female currently pain is improved after pain medication. Vital signs are stable afebrile. H EENT exam pupils round reactive light. Moist with membranes. Neck nontender. Lungs clear equal and symmetrical. Heart regular rhythm rate about 70 no murmur. Chest wall ribs nontender. Abdomen currently soft nondistended normal bowel sounds without peritoneal signs. She does have right lower quadrant tenderness. She has improved after the pain medication. There is no signs of obstruction. Moving all 4 extremities. Nontender no edema. Normal strength. Patient is awake and alert no focal motor deficits.] Medical Decision Making [45-year-old right lower quadrant pelvic pain known history of ovarian cyst or mass. Ultrasound to rule out torsion. Screening labs. Treated with morphine and Benadryl.] Other additions or changes: [None] Lab Data Labs: Laboratory Results - last 24 hr 01/30/25 01/30/25 14:21 14:40 WBC 10.7 RBC 4.28 Hgb 13.5 Hct 40.4 MCV 94.4 MCH 31.5 MCHC 33.4 RDW Std Deviation 41.0 RDW Coeff of Sweta 11.9 Plt Count 289 MPV 10.6 Immature Gran % (Auto) 0.200 Neut % (Auto) 52.8 Lymph % (Auto) 36.8 Ness % (Auto) 6.4 Eos % (Auto) 3.0 Baso % (Auto) 0.8 Absolute Neuts (auto) 5.6 Absolute Lymphs (auto) 3.94 Nucleated RBC % 0 Sodium 139 Potassium 4.0 Chloride 104 Carbon Dioxide 22.3 Anion Gap 13 BUN 14 Creatinine 0.97 Estim Creat Clear Calc 76.25 Est GFR (MDRD) Non-Af 74 BUN/Creatinine Ratio 14.8 Glucose 201 H Calcium 9.8 Serum , Qual NEGATIVE Urine Color Yellow Urine Clarity Clear Urine pH 7.0 Ur Specific Bradshaw 1.010 Urine Protein TNP Urine Glucose (UA) 1000 H Urine Ketones Negative Urine Occult Blood 10 H Urine Nitrite Negative Urine Bilirubin Negative Urine Urobilinogen Normal Ur Leukocyte Esterase Negative Urine RBC 0 SEEN Urine WBC 0-5 SEEN Ur Squamous Epith Cells 0 SEEN Amorphous Sediment 1+ Urine Bacteria 0 SEEN Urine Mucus 0 SEEN Radiography Diagnostic Testing: Clinical Impression(s) from Imaging Studies Pelvic/Transvag US 01/30/25 14:24 IMPRESSION: Right ovarian O rads 5 lesion: Needs referral to gynecological oncologists. Reading Location: [id number] <Dr. Bryson Treviño MD - Last Filed: 01/30/25 15:05> MDM MDM Narrative Medical decision making narrative: I have personally performed a face to face assessment of the patient and have reviewed the CAROLINE Note. I performed a substantive portion of the visit including all aspects of the following. My alvarez findings include: History is 45-year-old female with known either ovarian cyst or mass. Diagnosed on CAT scan and ultrasound on the . She has appointment to see [facility] [employer] this Friday. Return for increased pain. No fever or dysuria. Recent labs are unremarkable. Exam is [45-year-old female currently pain is improved after pain medication. Vital signs are stable afebrile. H EENT exam pupils round reactive light. Moist with membranes. Neck nontender. Lungs clear equal and symmetrical. Heart regular rhythm rate about 70 no murmur. Chest wall ribs nontender. Abdomen currently soft nondistended normal bowel sounds without peritoneal signs. She does have right lower quadrant tenderness. She has improved after the pain medication. There is no signs of obstruction. Moving all 4 extremities. Nontender no edema. Normal strength. Patient is awake and alert no focal motor deficits.] Medical Decision Making [45-year-old right lower quadrant pelvic pain known history of ovarian cyst or mass. Ultrasound to rule out torsion. Screening labs. Treated with morphine and Benadryl.] Other additions or changes: [None] History & Record Review Discussion w/independent historian: Patient and Family Additional record(s) reviewed:: Prior inpatient record, Prior outpatient record, Prior ED visit and Prior labs Lab Data Attestation: I reviewed the patient's lab results. Lab results narrative: CBC shows a white count of 10. H&H 13 and 40. Platelets are 289. Serum test negative. UA shows no nitrites. Labs: Laboratory Results - last 24 hr 01/30/25 01/30/25 14:21 14:40 WBC 10.7 RBC 4.28 Hgb 13.5 Hct 40.4 MCV 94.4 MCH 31.5 MCHC 33.4 RDW Std Deviation 41.0 RDW Coeff of Sweta 11.9 Plt Count 289 MPV 10.6 Immature Gran % (Auto) 0.200 Neut % (Auto) 52.8 Lymph % (Auto) 36.8 Ness % (Auto) 6.4 Eos % (Auto) 3.0 Baso % (Auto) 0.8 Absolute Neuts (auto) 5.6 Absolute Lymphs (auto) 3.94 Nucleated RBC % 0 Sodium 139 Potassium 4.0 Chloride 104 Carbon Dioxide 22.3 Anion Gap 13 BUN 14 Creatinine 0.97 Estim Creat Clear Calc 76.25 Est GFR (MDRD) Non-Af 74 BUN/Creatinine Ratio 14.8 Glucose 201 H Calcium 9.8 Serum , Qual NEGATIVE Urine Color Yellow Urine Clarity Clear Urine pH 7.0 Ur Specific Bradshaw 1.010 Urine Protein TNP Urine Glucose (UA) 1000 H Urine Ketones Negative Urine Occult Blood 10 H Urine Nitrite Negative Urine Bilirubin Negative Urine Urobilinogen Normal Ur Leukocyte Esterase Negative Urine RBC 0 SEEN Urine WBC 0-5 SEEN Ur Squamous Epith Cells 0 SEEN Amorphous Sediment 1+ Urine Bacteria 0 SEEN Urine Mucus 0 SEEN Radiography Diagnostic Testing: Clinical Impression(s) from Imaging Studies Pelvic/Transvag US 01/30/25 14:24 IMPRESSION: Right ovarian O rads 5 lesion: Needs referral to gynecological oncologists. Reading Location: [place] [id number] Discharge Plan Triage Chief Complaint: Abd Pain ED Midlevel Provider: Mariel Espana ED Provider: Bryson Treviño Dx/Rx/DC Orders Clinical Impression: Mass of right ovary, Abdominal pain Instructions: Abdominal Pain Prescriptions: No Action multivitamin tablet 1 tab PO DAILY amitriptyline 50 mg tablet 100 mg PO QHS omega-3 fatty acids [Fish Oil Concentrate] 1,000 mg capsule 1,200 mg PO BID Nurtec ODT 75 mg tablet,disintegrating 75 mg PO DAILY PRN (Reason: migraine headache) Qty: 16 9RF topiramate 100 mg tablet 100 mg PO BID Qty: 60 9RF tizanidine 4 MG tablet 4 mg PO BID PRN (Reason: muscle spasticity) Patient Comments: take 1 tablet by mouth twice a day if needed buspirone 30 MG tablet 30 mg PO BID Patient Comments: take 1 tablet by mouth twice a day acetaminophen 650 MG/20 ML solution 500 mg PO Q4H PRN PRN (Reason: Headache/Temp>99F) 0RF ibuprofen 600 MG tablet 600 mg PO 4X/DAY PRN (Reason: Headache) Qty: 1 0RF simvastatin 40 mg tablet 40 mg PO QHS Patient Comments: take 1 tablet by mouth at bedtime venlafaxine 37.5 mg capsule,extended release 24hr 37.5 mg PO DAILY propranolol 20 mg tablet 20 mg PO Q12H metformin 1,000 mg tablet 1,000 mg PO BID cholecalciferol (vitamin D3) [Vitamin D3] 125 mcg (5,000 unit) tablet 125 mcg PO DAILY desvenlafaxine succinate 25 mg tablet extended release 24 hr 25 mg PO DAILY oxycodone-acetaminophen [Percocet] 5-325 mg tablet 1 tab PO Q6H PRN (Reason: pain) 3 Days Qty: 12 0RF oxycodone-acetaminophen [Percocet] 5-325 mg tablet 1 tab PO Q6H PRN (Reason: pain) 3 Days Qty: 10 0RF Primary Care Provider: Myranda Lamas Referrals: Myranda Lamas, APPLICATIONS TESTER [Primary Care Provider] - Activity Restrictions/Additional Instructions: The ultrasound again showed a right ovarian mass. There is blood flow to it so there is no ovarian torsion. This needs evaluated by oncology to rule out cancer. Since you are in pain management I cannot prescribe narcotics. You should call your pain management physician tomorrow to tell them about this new medical issue. Print Language: Swedish Disposition Disposition: Home, Self Care
--- NOTE | 2025-01-30 14:24 | US_ITS ---
PROCEDURE: PELVIC W/ TRANSVAGINAL 01/30/2025 REASON FOR EXAM: RLQ PAIN, TECHNIQUE: Transabdominal pelvic ultrasound COMPARISON: 01/17/2025 CT. FINDINGS: Uterus measures 9.1 x 5.8 x 4.0 cm. No uterine fibroids. Anteverted uterus. Endometrium measures 2 mm. Nabothian cysts are present. Right ovary measures 9.2 x 4.2 x 5.8 cm with preserved vascular flow. Right ovarian 4.2 x 3.5 x 4.1 cm cystic mass cystic region with an associated solid component and an immediately adjacent 5.8 x 4.5 x 3.9 cm bilobed region with a large solid component and a color score of 4. Left ovary measures 3.6 x 2.9 x 1.7 cm with preserved vascular flow. US/Pelvic w/ Transvaginal IMPRESSION: Right ovarian O rads 5 lesion: Needs referral to gynecological oncologists. Reading Location: [place] [id number]
[2025-01-30 14:30] VITALS: BMI 35.4
[2025-01-30 14:36] LABS: Absolute Lymphocyte Count 3.94 X10^3/uL (0.83-4.51); Absolute Neutrophil Count 5.6 X10^3/uL (2.0-7.7); Basophil# 0.09 X10^3/uL; Basophil% 0.8 % (0-1); Eosinophil# 0.32 X10^3/uL; Hematocrit 40.4 % (37-47); Hemoglobin 13.5 g/dL (12.0-15.0); Lymphocyte # 3.94 X10^3/ul (0.83-4.51); Lymphocyte % 36.8 % (19-41); Mean Corp Hgb Conc 33.4 g/dL (32-36); Mean Corpuscular Hgb 31.5 pg (27.0-32.0); Mean Corpuscular Volume 94.4 fL (81-99); Mean Platelet Vol. 10.6 fl (6.2-12.0); Monocyte# 0.69 X10^3/uL; Monocyte% 6.4 % (0-10); NRBC Flagged by Analyzer 0 % (0-5); Neutrophil # 5.64 X10^3/uL (2.7-7.7); Neutrophil % 52.8 % (47-70); Platelet Count 289 K/mm3 (150-450); RBC Distribution Width CV 11.9 % (11.6-14.6); Red Blood Count 4.28 M/mm3 (4.2-5.4); White Blood Count 10.7 K/mm3 (4.4-11.0)
[2025-01-30] MEDS: Ondansetron 4 MG/2 ML Vial IV (14:41)
[2025-01-30] MEDS: Morphine 4 MG/ML Syringe IV (14:41)
[2025-01-30] MEDS: 0.9% Normal Saline (1000mL) 1,000 ML 999 ML IV (14:41)
[2025-01-30 14:46] LABS: Internal QC Validated? YES +Cl - CLEAR BKGD; Pregnancy, Serum, hCG Quali. NEGATIVE Negative
[2025-01-30 14:47] LABS: Bacteria 0 SEEN /hpf (None Seen); Mucous, Urine 0 SEEN /hpf (<or=2+); Red Blood Cells-Urine 0 SEEN /hpf (0-5); Squamous Epithelial Cells - UA 0 SEEN /hpf (5-10)
[2025-01-30] MEDS: DiphenhydrAMINE 50 MG/ML Syringe 25 MG IV (14:50)
[2025-01-30 14:57] LABS: Color, Urine Yellow (Yellow); Glucose, Dipstick 1000 mg/dl (Normal); Ketone-Dipstick Negative (Negative); Leukocyte Esterase-Dipstick Negative /ul (Negative); Nitrite-Dipstick Negative (Negative); Occult Blood-Urine 10 /ul (Negative); Urine Bilirubin Dipstick Negative (Negative); Urine Clarity Clear (Clear); Urine Urobilinogen Normal (Normal)
[2025-01-30 15:20] LABS: Anion Gap 13 (5-15); BUN 14 mg/dL (4-19); BUN/Creat Ratio 14.8 RATIO (10-20); Calcium,Total 9.8 mg/dL (7.6-11.0); Carbon Dioxide 22.3 mmol/L (21.0-32.0); Chloride 104 mmol/L (98-108); Creatinine, Serum 0.97 mg/dL (0.70-1.20); EST Glomerular Filtration Rate 74 (>60); Estimated Creatinine Clearance 76.25 ml/min (50-250); Glucose 201 mg/dL (70-99); Sodium Level 139 mmol/L (133-145)
[2025-01-30 15:33] LABS: Amorphous Sediment 1+; White Blood Cells 0-5 SEEN /hpf (0-5)
[2025-01-30] MEDS: Ketorolac 30 MG/ML Syringe IV (15:41)
[2025-01-30 15:42] VITALS: BP 128/88; PULSE 59; RESP 18; O2SAT 99
[2025-01-30 17:00] VITALS: BP 128/74; PULSE 61; RESP 16; TEMP 36.6; O2SAT 99
== END 2025-01-30 17:29 | disposition home or self-care (01) ==
PROVIDERS: Physician Assistant; Emergency Provider Emergency Medicine; PCP Clinical Nurse Specialist Adult Health; Visit Provider Emergency Medicine
DX: N83.8 Other noninflammatory disorders of ovary, fallopian tube and broad ligament (principal); E11.9 Type 2 diabetes mellitus without complications; R10.31 Right lower quadrant pain; E78.00 Pure hypercholesterolemia, unspecified; F17.290 Nicotine dependence, other tobacco product, uncomplicated
CPT/HCPCS: 76830; 76856; 80048; 81001; 84703; 85025; 96361; 96374; 96375; 99283; A4216; J2405

== ENCOUNTER 2025-02-20 08:18 | Emergency (ER) | payer OTHER, SELFPAY ==
[2025-02-20 08:19] VITALS: BP 184/103; PULSE 55; RESP 16; TEMP 36.7; O2SAT 98; BMI 35.1
--- NOTE | 2025-02-20 08:23 | EX.ED.DYSGE1 ---
HPI History of Present Illness Chief Complaint: Abd Pain [facility] Medical History Injury of back Wears glasses Depression Anxiety Fatty liver High cholesterol Restless legs Back pain Smoker Leg cramps History of echocardiogram Polycystic ovaries History of pneumonia History of gallstones Migraines Diabetes Home Medications ?Medication ?Instructions ?Recorded ?Last Taken ?Type buspirone 30 mg tablet 30 mg PO BID 05/02/18 02/19/25 History tizanidine 4 mg tablet 4 mg PO Q8H PRN muscle spasticity 05/02/18 02/19/25 History multivitamin 1 tab PO DAILY 11/24/18 04/14/24 History Held on 02/20/25. Instructions: MD Ordered simvastatin 40 mg tablet 40 mg PO QHS 05/19/21 02/19/25 History omega-3 fatty acids 1,000 mg 1,200 mg PO BID 06/12/21 04/10/24 History capsule (Fish Oil Concentrate) Held on 02/20/25. Instructions: MD Ordered cholecalciferol (vitamin D3) 125 125 mcg PO DAILY 04/20/24 Unknown History mcg (5,000 unit) tablet (Vitamin D3) Held on 02/20/25. Instructions: MD Ordered metformin 1,000 mg tablet 1,000 mg PO BID 04/20/24 02/19/25 History amitriptyline 100 mg tablet 100 mg PO QHS 02/20/25 02/19/25 History docusate sodium 100 mg capsule 100 mg PO BID 02/20/25 02/19/25 History empagliflozin 25 mg tablet 25 mg PO DAILY 02/20/25 Unknown History (Jardiance) Held on 02/20/25. Instructions: MD Ordered fluorometholone 0.1 % eye 1 drp ophthalmic (eye) BID 02/20/25 02/19/25 History drops,suspension hydrocodone-acetaminophen 5-325mg 1 tab PO TID PRN PRN pain 02/20/25 02/20/25 History 5mg-325mg hydroxyzine HCl 10 mg tablet 10 mg PO TID PRN PRN anxiety 02/20/25 Unknown History naloxone 4 mg/actuation nasal spray 1 spray intranasal PRN PRN opioid 02/20/25 Unknown History overdose propranolol 40 mg tablet 40 mg PO BID 02/20/25 02/19/25 History sennosides 8.6 mg tablet (senna) 8.6 mg PO BID PRN PRN constipation 02/20/25 Unknown History sumatriptan succinate 100 mg See Rx Instructions PO .COMPLEX 02/20/25 Unknown History tablet (Imitrex) venlafaxine 75 mg capsule,extended 75 mg PO DAILY 02/20/25 02/19/25 History release 24 hr Allergy/AdvReac Type Severity Reaction Status Date / Time doxycycline Allergy Hives Verified 02/20/25 08:19 morphine Allergy Rash Verified 02/20/25 08:19 moxifloxacin HCl (From Allergy Hives Verified 02/20/25 08:19 Avelox) Penicillins (PCN) Allergy Hives Verified 02/20/25 08:19 Surgical History History of colonoscopy History of dilation and curettage History of selective injection of anesthetic agent around lumbar nerve root History of tonsillectomy and adenoidectomy History of section History of cholecystectomy Social History Smoking Status: Current every day smoker tobacco type: e-cigarettes Tobacco: How many years used: 6 Smokeless tobacco user: other Electronic Cigarette Use: with nicotine second hand exposure: No alcohol intake: never substance use type: does not use dillon/gnosticist: None seatbelt use: always EXAM Physical Exam Const Vital Signs: 02/20/25 08:19 02/20/25 10:18 Temperature 98.0 F Temperature Source Oral Pulse Rate 55 L 60 Respiratory Rate 16 16 Blood Pressure 184/103 H 170/82 H Blood Pressure Mean 130 111 Pulse Ox 98 97 Oxygen Delivery Method Room Air Room Air MDM MDM MDM Narrative Medical decision making narrative: HISTORY OF PRESENT ILLNESS: Chief complaint: Abdominal pain 45-year-old female presents with abdominal pain. She notes she has a known ovarian mass. She states she scheduled for hysterectomy on Friday. She states her abdominal pain worsens suddenly. No she follows with [facility] at [facility] Dr. Nash. States she has had no vomiting, fever but no significant lower abdominal pain mostly in the right lower quadrant. Notes history of in the past. Denies fever. Denies frequency urgency or dysuria. Notes intermittent constipation and diarrhea. Last bowel movement was yesterday. No melena or hematochezia noted. No vaginal bleeding or discharge. REVIEW OF SYSTEMS: Pertinent positives: Abdominal pain Pertinent negatives: As per HPI PHYSICAL EXAM: Nursing triage notes reviewed, Vital signs reviewed Constitutional: please see [facility] HENT: MMM Eyes: Pupils equal round and reactive to light, Extraocular muscles intact Neck: No stridor, no JVD, full neck ROM Lungs: Clear to auscultation, No wheezing or rales. No increased work of breathing, no conversational dyspnea, no accessory muscle use, no nasal flaring. No respiratory distress noted Heart: Regular rate and rhythm, No murmurs, No rubs and No gallops, 2+ distal pulses (radial, femoral, posterior tibial) in all extremities Abdomen: Soft, diffuse TTP mostly right lower quadrant, no rigidity, rebound or guarding, no obvious peritoneal signs, no palpable pulsatile abdominal masses, no auscultated abdominal bruit : No CVAT Extremities: No edema Neuro: No new focal neurological deficits, cranial nerves II through XII intact, 5/5 strength in all present extremities. Intact sensation to light touch in all present extremities, 2+ reflexes bilateral patella tendons. Skin: No rash or lesions noted MEDICAL DECISION MAKING: Chief Complaint: please see HPI External records reviewed: Reviewed prior imaging studies: Reviewed CT scan abdomen pelvis from January 17, 2025 which showed heterogeneous lesion in the rectouterine pouch measuring 6.9 cm favored to be uterine or ovarian origin. Pelvic ultrasound from the same date showed findings concerning for high risk malignancy. Reviewed Clinisync: Reviewed the patient's [facility] oncologist Dr. Aaron Nash at [facility]. Factors affecting care: Ovarian mass, type diabetes, hypertension, obesity Social determinants of health: none History obtained from others: none Consults: [employer]/ONC -Dr. Brody recommended discharge with oral pain medicine. States she likely has an ovarian torsion. She states that the patient did not want to preserve fertility at this would not be an emergency would not be an indication to expedite surgery. States she would gladly accept the patient transfer if the patient wanted to be admitted but likely not get surgery until previously scheduled time. [facility] Narrative: The patient was initially hypertensive with an initial blood pressure of 184/103 however she was afebrile and nontoxic-appearing. Exam with right lower quad TTP. Likely pain from mass however cannot rule out other etiologies including abscess or appendicitis. I considered the following differential diagnosis: AAA, small bowel obstruction, abdominal perforation, appendicitis, pancreatitis, hepatobiliary pathology (acute cholecystitis), mesenteric ischemia, pathology (ie nephrolithiasis, pyelonephritis) intra-abdominal abscess, mass. Initially resuscitated the patient with IV fluids, Zofran, Dilaudid (morphine allergy, also gave 25 mg of IV Benadryl to prevent allergic response) ALL IMAGES (IF OBTAINED) HAVE BEEN PERSONALLY REVIEWED AND INTERPRETED BY MYSELF. CBC leukocytosis suggestive of systemic summation, no anemia or thrombocytopenia CMP without evidence of acute kidney injury, significant electrolyte abnormality, anion gap to suggest end organ hypo-perfusion, no evidence of metabolic acidosis with a normal bicarbonate, no evidence of hepatobiliary obstructive pathology. Lactate is wnl indicating no end-organ hypoperfusion and/or hypoxia. Lipase is wnl indicating no pancreatic inflammation. Urine test is CT of the abdomen/pelvis shows The mass now measures at least 9.6 x 5.7 cm (coronal image 61), previously measuring 6.9 x 3.8 cm on prior imaging when measured in a similar fashion. Trace ascites within the pelvic cul-de-sac, increased since prior examination. The uterus and left ovary are grossly unremarkable. Upon reevaluation patient's blood pressure improved 159/94. Her pain was improved after Dilaudid. Discussed transfer versus discharge. Patient was alert and orient x 3 and had capacity to make all medical systems chose to be discharged with oral Dilaudid pain medication for home control. Strict return precautions were discussed. Gynecology oncology follow-up was recommended. The patient and/or family, caregivers express understanding. The patient and/or family, caregivers agrees with the plan. Shared decision making: I will have a discussion with the patient and or visitors regarding risk/benefits of further testing or admission. They will be made aware of of the risk/benefits inherent in this decision they will be given the opportunity to voice understanding. Total critical care time today provided was at least 0 minutes. This excludes separately billable procedures. Critical care time (if documented) is secondary to the patient having high probability of clinically significant/life threatening deterioration in the patient's condition which required my urgent intervention. Impression: 1. Acute abdominal pain 2. History of ovarian mass Dispo: discharge home This note was generated with Dragon dictation software. It may contain incorrect words, spelling, and punctuation that were not noted in review of the chart prior to signing. Lab Data Labs: Laboratory Results - last 24 hr 02/20/25 02/20/25 09:00 09:30 WBC 13.1 H RBC 4.31 Hgb 13.6 Hct 40.1 MCV 93.0 MCH 31.6 MCHC 33.9 RDW Std Deviation 40.1 RDW Coeff of Sweta 11.9 Plt Count 332 MPV 10.6 Immature Gran % (Auto) 0.200 Neut % (Auto) 52.1 Lymph % (Auto) 36.8 [place]phill % (Auto) 6.0 Eos % (Auto) 4.4 Baso % (Auto) 0.5 Absolute Neuts (auto) 6.8 Absolute Lymphs (auto) 4.81 H Nucleated RBC % 0 Sodium 138 Potassium 4.1 Chloride 103 Carbon Dioxide 21.4 Anion Gap 13 BUN 11 Creatinine 0.90 Estim Creat Clear Calc 81.72 Est GFR (MDRD) Non-Af 81 BUN/Creatinine Ratio 12.4 Glucose 188 H Lactic Acid 1.7 Calcium 9.4 Total Bilirubin 0.30 AST 25 ALT 36 H Alkaline Phosphatase 80 Total Protein 7.8 Albumin 4.3 Globulin 3.5 Albumin/Globulin Ratio 1.2 Lipase 66 Urine Color Yellow Urine Clarity Clear Urine pH 6.5 Ur Specific [place] 1.010 Urine Protein 15 H Urine Glucose (UA) 1000 H Urine Ketones Negative Urine Occult Blood 10 H Urine Nitrite Negative Urine Bilirubin Negative Urine Urobilinogen Normal Ur Leukocyte Esterase 500 H Urine RBC 0 SEEN Urine WBC 0-5 SEEN Ur Squamous Epith Cells 0-5 SEEN Urine Bacteria 0 SEEN Urine Mucus 0 SEEN Urine Test Negative Radiography Diagnostic Testing: Clinical Impression(s) from Imaging Studies Abdomen/Pelvis CT 02/20/25 09:55 IMPRESSION: 1. No acute abdominopelvic finding. 2. 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 Discussed with Dr. Saravia, who notes patient has surgical removal scheduled on Friday. 3. No lymphadenopathy. Trace pelvic ascites, of indeterminate etiology. Reading Location: [facility] Discharge Plan Triage Chief Complaint: Abd Pain ED Provider: Ankit Saravia Dx/Rx/DC Orders Prescriptions: No Action multivitamin tablet 1 tab PO DAILY omega-3 fatty acids [Fish Oil Concentrate] 1,000 mg capsule 1,200 mg PO BID tizanidine 4 MG tablet 4 mg PO Q8H PRN (Reason: muscle spasticity) Patient Comments: take 1 tablet by mouth twice a day if needed buspirone 30 MG tablet 30 mg PO BID Patient Comments: take 1 tablet by mouth twice a day simvastatin 40 mg tablet 40 mg PO QHS Patient Comments: take 1 tablet by mouth at bedtime hydrocodone-acetaminophen 5-325 mg tablet 1 tab PO TID PRN PRN (Reason: pain) docusate sodium 100 mg capsule 100 mg PO BID amitriptyline 100 mg tablet 100 mg PO QHS Jardiance 25 mg tablet 25 mg PO DAILY naloxone 4 mg/actuation spray,non-aerosol 1 spray INTRANASAL PRN PRN (Reason: opioid overdose) sennosides [senna] 8.6 mg tablet 8.6 mg PO BID PRN PRN (Reason: constipation) venlafaxine 75 mg capsule,extended release 24hr 75 mg PO DAILY propranolol 40 mg tablet 40 mg PO BID hydroxyzine HCl 10 mg tablet 10 mg PO TID PRN PRN (Reason: anxiety) fluorometholone 0.1 % drops,suspension 1 drp ophthalmic (eye) BID sumatriptan succinate [Imitrex] 100 mg tablet See Rx Instructions .ROUTE .COMPLEX Rx Instructions: take 1 tab at onset of headache; if no relief, may repeat 1 tab after at least 2 hrs; max = 2 tabs/24 hrs metformin 1,000 mg tablet 1,000 mg PO BID cholecalciferol (vitamin D3) [Vitamin D3] 125 mcg (5,000 unit) tablet 125 mcg PO DAILY Primary Care Provider: Myranda Lamas Referrals: Myranda Lamas, [facility] [Primary Care Provider] - Print Language: Divehi
--- OUTSIDE RECORDS SUMMARY | 2025-02-20 08:48 | XMS RPT_ITS | CCD ---
Author Organization [facility] Care Team Providers Care Baseball Pitcher Name Role Phone Nabil HAMM Albert RoBernabe Primary Care Provider [phone] NABIL LADD, MR Albert LANE Primary Care Physician SANDI HAMMONDS DO Attending Unavailable NABIL LADD, MR Albert LANE Primary Care Unavaila ble Nabil HAMM Albert Lane Primary Care Provider [phone] Nabil HAMM, Albert RoBernabe Primary Care Provider JJ AL Attending Unavailable SELF, SELF Referring Unavailable Haagen CONCRETE STONE FINISHER.BIOINFORMATICS COMPUTER SCIENTIST, Imne Unavailable Suppan CONCRETE STONE FINISHER.BIOINFORMATICS COMPUTER SCIENTIST, Myranda A Unavailable [phone] Suppan CONCRETE STONE FINISHER.BIOINFORMATICS COMPUTER SCIENTIST, Myranda A Primary Care Provi denisse Haagen CONCRETE STONE FINISHER.BIOINFORMATICS COMPUTER SCIENTIST, Mine Unavailable Suppan CONCRETE STONE FINISHER.KIMO, Myranda A Unavailable [phone] Dr. Jostin Stone DO Emergency Provider Suppan SCHOOL AGE TEACHER, Myranda Primary Care Provider Dr. Jostin Stone DO Attending Provider [phone] Dr. Bryson Treviño MD Emergency Provider Albert Suarez Primary Care Unavailable Vincent Choi Attending Unavailable Cheryl, Zheng Referring Unavailable Albert Suarez Primary Care Unavailable Zheng Luna Attending Unavailable Cheryl, Zheng Referring Unavailable Albert Suarez Primary Care Unavailable Rogeliowell, Zheng Attending Unavailable Wiswell, Zheng Referring Unavailable Suppbrianda, Myranda Primary Care Unavailable Bryson Treviño Attending Unavailable Lloyd Thomas Attending Unavailable Nabil LADD Albert Bernabe Primary Care Unavailable Suppan, Myranda Primary Care Unavailable Jostin Stone Attending Unavailable MASCI, JOSE A Referring Unavailable FERRER, CAROLYN LANE Primary Care Unavailable CHERYL, ZHENG Attending Unavailable SUPPAN, MYRANDA A Referring Unavailable FERRER, CAROLYN LANE Primary Care Unavailable WISWELL, ZHENG Attending Unavailable FERRER, CAROLYN LANE Primary Care Unavailable SUPPAN, MYRANDA A Referring Unavailable FERRER, CAROLYN LANE Primary Care Unavailable SUPPAN, MYRANDA A Attending Unavailable FERRER, CAROLYN LANE Primary Care Unavailable SUPPAN, MYRANDA A Referring Unavailable FERRER, CAROLYN LANE Primary Care Unavailable MASCJOSE Guillory A Attending Unavailable SUPPAN, MYRANDA A Referring Unavailable FERRER, CAROLYN LANE Primary Care Unavailable SUPPAN, MYRANDA A Attending Unavailable FERRER, CAROLYN LANE Primary Care Unavailable WISWELL, ZHENG Attending Unavailable FERRER, CAROLYN LANE Primary Care Unavailable SUPPAN, MYRANDA A Primary Care Unavailable SUPPAN, MYRANDA A Referring Unavailable SUPPAN, MYRANDA A Primary Care Unavailable SUPPAN, MYRANDA A Attending Unavailable SUPPAN, MYRANDA A Primary Care Unavailable MASCI, JOSE A Referring Unavailable FERRER, CAROLYN LANE Primary Care Unavailable SUPPAN, MYRANDA A Attending Unavailable SUPPAN, MYRANDA A Primary Care Unavailable JOSE ALEJANDRO, AARON E Referring Unavailable SUPPAN, MYRANDA A Primary Care Unavailable JOSE ALEJANDRO, AARON E Referring Unavailable SUPPAN, MYRANDA A Primary Care Unavailable MYRIAM RIVERA Attending Unavailable SUPPAN, MYRANDA A Primary Care Unavailable BHUPENDRA DAVILA DO Attending Unavailable NABIL LADD, MR Albert LANE Primary Care Unavaila ble SUPPAN, MYRANDA A Primary Care Unavailable JOSE ALEJANDRO, AARON E Attending Unavailable MYRIAM RIVERA Referring Unavailable SUPPAN, MYRANDA A Primary Care Unavailable JOSE ALEJANDRO, AARON E Referring Unavailable SUPPAN, MYRANDA A Primary Care Unavailable JOSE ALEJANDRO, AARON E Attending Unavailable JOSE ALEJANDRO, AARON E Referring Unavailable JOSE ALEJANDRO, AARON E Referring Unavailable SUPPAN, MYRANDA A Primary Care Unavailable Allergies Allergy Classification Reported Allergen(s) Allergy Type Date of Onset Reaction(s) Facility Doxycycline (1 source) Doxycycline Drug Allergy 9 GI Upset [facility] Work Phone: Penicillins (antibiotic) (1 source) Penicillins Drug Allergy 6 Other: See Comments [facility] Quinolones (antibiotic) (1 source) moxifloxacin Drug Allergy 9 Rash [facility] Work Phone: Serotonin Reuptake Inhibitors (SSRIs) (1 source) FLUoxetine Drug Allergy 1 Other: See Comments [facility] (20 sources) Doxycycline; Translations: [doxycycline] Drug Allergy 9 GI Upset [facility] Work Phone: (20 sources) FLUoxetine; Translations: [FLUOXETINE HCL] Drug Allergy 1 Other: See Comments [facility] Work Phone: (20 sources) moxifloxacin; Translations: [MOXIFLOXACIN HCL] Drug Allergy 9 Rash [facility] Work Phone: (15 sources) Penicillins; Translations: [PENICILLINS] Propensity to adverse reactions to drug 6 Other: See Comments [facility] Work Phone: (20 sources) Penicillins Propensity to adverse reactions to drug 6 Other: See [facility] Work Phone: (2 sources) moxifloxacin; Translations: [moxifloxacin] Drug Allergy Rash [facility] (2 sources) Penicillin; Translations: [penicillin] Drug Allergy Unknown [facility] (8 sources) Penicillins Propensity to adverse reactions to drug 6 Other: See Comments [facility] (2 sources) Penicillins Allergy to substance 5 Hives [facility] (8 sources) Morphine; Translations: [MORPHINE] Drug Allergy 5 Rash, Hives, Itching [facility] (1 source) Doxycycline Drug Allergy 5 [facility] Repository (1 source) Morphine Drug Allergy 5 [facility] (1 source) moxifloxacin Drug Allergy 5 [facility] (1 source) Penicillins Drug allergy (disorder) 5 [facility] Repository Medications Current Medications Medication Drug Class(es) Dates Sig (Normalized) Sig (Original) acetaminophen 32 mg/ml oral solution (2 sources) Start: 11-16-2018 take 500 mg by mouth every four hours as needed for headache Acetaminophen 650 MG/20 ML solution Active 500 mg PO EVERY 4 HOURS NEEDED as needed for Headache/Temp>99F November 16, 2018 12:00am acetaminophen 325 mg / HYDROcodone bitartrate 5 mg oral tablet (20 sources) Opioid Agonist Start: 02-08-2025 take 1 tablet by mouth three times daily for pain HYDROcodone-acetami nophen (NORCO) 5-325 mg per tablet take 1 tablet by mouth three times a day if needed for BREAKTHROUGH PAIN 02/08/2025 Active Start: 07-04-2021 take 5-325 tablets b y mouth every twelve hours as needed HYDROcodone-acetaminophen (NORCO) 5-325 mg per tablet Take 5-325 tablets by mouth twice daily as needed. 0 07/04/2021 Active Start: 12-17-2019 End: 12-19-2019 Hydrocodone-Acetaminophen 1 TABLET tablet Discontinued 1 {tbl} PO EVERY 4 HOURS NEEDED as needed for Pain 20 2 December 17, 2019 December 18, 2019 12:00am December 19, 2019 12:01am Comment on above: Take 5-325 tablets b y mouth twice daily as needed. acetaminophen 325 mg / oxyCODONE hydrochloride 5 mg oral tablet (6 sources) Opioid Agonist Start: 024 End: take 1 tablet by mouth every six hours as needed for pain Oxycodone-Acetaminop hen (Percocet) 5-325 mg tablet Active 1 {tbl} PO EVERY 6 HOURS as needed for pain 10 3 January 17, 2025 [id number] actuat albuterol 0.09 mg/actuat metered dose inhaler (20 sources) beta2-Adrenergic Agonist Start: 017 End: take 2 puff(s) by inhalation every four hours as needed albuterol HFA (PROAIR HFA) 90 mcg/actuation inhaler Indications: Viral URI with cough Inhale 2 Puffs as instructed every 4 hours as needed. 1 Inhaler 02/21/2022 Active Comment on above: Inhale 2 Puffs as in structed every 4 hours as needed. amitriptyline hydrochloride 100 mg oral tablet (20 sources) Tricyclic Antidepressant Start: End: take 1 tablet by mouth once daily at bedtime amitriptyline (ELAVIL) 100 mg tablet Indications: Migraine without aura and without status migrainosus, not intractable Take 1 tablet by mouth daily at bedtime. 30 tablet 5 11/18/2024 05/17/2025 Active Start: 06-07-2024 End: 11-18-2024 take 1-2 tablets by mouth once daily at bedtime amitriptyline (ELAVIL) 50 mg tablet Indications: Migraine without aura and without status migrainosus, not intractable Take 1-2 tablets by mouth daily at bedtime. 60 tablet 4 06/07/2024 11/18/2024 Discontinued Start: 11-01-2023 End: 06-05-2024 take 1-2 tablets by mouth once daily at bedtime amitriptyline (ELAVIL) 50 mg tablet Indications: Migraine without aura and without status migrainosus, not intractable Take 1-2 tablets by mouth daily at bedtime. 60 tablet 4 12/08/2023 06/05/2024 Discontinued Start: 09-25-2023 End: 10-30-2023 take 1-2 tablets by mouth once daily at bedtime amitriptyline (ELAVIL) 50 mg tablet Indications: Migraine without aura and without status migrainosus, not intractable Take 1-2 tablets by mouth daily at bedtime. 60 tablet 0 09/25/2023 10/30/2023 Discontinued Start: 01-29-2023 take 1-2 tablets by mouth once daily at bedtime amitriptyline (ELAVIL) 50 mg tablet Indications: Migraine without aura and without status migrainosus, not intractable Take 1-2 tablets by mouth daily at bedtime. 60 tablet 4 01/29/2023 Active Start: 06-12-2021 take 2 tablets by mo uth at bedtime Amitriptyline 50 mg tablet Active 100 mg PO AT BEDTIME June 12, 2021 12:00am Start: 05-02-2018 End: 01-26-2023 take 1-2 tablets by mouth once daily at bedtime amitriptyline (ELAVIL) 50 mg tablet Indications: Migraine without aura and without status migrainosus, not intractable Take 1-2 tablets by mouth daily at bedtime. 60 tablet 4 07/24/2022 01/26/2023 Discontinued Start: 08-25-2014 End: 06-12-2021 Amitriptyline 10 MG tablet Discontinued 100 mg PO AT BEDTIME August 25, 2014 1:00am June 12, 2021 8:14am Comment on above: Take 1-2 tablets by mouth daily at bedtime. blood-glucose meter,mobile dev (HOLLY BLOOD GLUCOSE MONITOR) lyn (20 sources) blood-glucose me ter,mobile dev (HOLLY BLOOD GLUCOSE MONITOR) lyn Active blood-glucose me ter,mobile dev (HOLLY BLOOD GLUCOSE MONITOR) lyn busPIRone hydrochloride 30 mg oral tablet (20 sources) Start: 11-01-2023 End: 11-18-2024 take 1 tablet by mouth twice daily busPIRone HCl 30 mg tablet Indications: Depressive disorder Take 1 tablet by mouth two times a day. 60 tablet 4 11/18/2024 Active Start: 09-25-2023 End: 10-30-2023 take 1 tablet by mouth twice daily busPIRone HCl 30 mg tablet Indications: Depressive disorder Take 1 tablet by mouth two times a day. 60 tablet 0 09/25/2023 10/30/2023 Discontinued Start: 05-02-2018 End: 01-26-2023 take 1 tablet by mouth twice daily busPIRone HCl 30 mg tablet Indications: Depressive disorder Take 1 tablet by mouth twice daily. 60 tablet 1 01/29/2023 Active Comment on above: Take 1 tablet by ulisses th twice daily. Take 1 tablet by ulisses th two times a day. celecoxib 200 mg oral capsule (20 sources) Nonsteroidal Anti-inflammatory Drug Start: End: take 1 capsule by mouth once daily at mealtime celecoxib 200 mg oral capsule take 1 capsule by mouth once daily with food Start Date: 05/02/18 Status: Ordered Repeat number: 1 Comment on above: Take 200 mg by mouth once daily. cholecalciferol 0.125 mg oral tablet (2 sources) Vitamin D Start: take 1 tablet by mouth once daily Cholecalciferol (Vitamin D3) (Vitamin D3) 125 mcg (5,000 unit) tablet Active 125 ug PO DAILY April 20, 2024 12:00am cholecalciferol, vitamin D3, (VITAMIN D3 ORAL) (20 sources) take 1 tablet by mouth once daily cholecalciferol, vitamin D3, (VITAMIN D3 ORAL) Take 1 tablet by mouth once daily. Active cholecalciferol, vitamin D3, (VITAMIN D3 ORAL) Take by mouth. Active cholecalciferol, vitamin D3, (VITAMIN D3 ORAL) Take by mouth. 0 Active Comment on above: Take by mouth. 24 hr desvenlafaxine succinate 25 mg extended release oral tablet (20 sources) Serotonin and Norepinephrine Reuptake Inhibitor Start: take 1 tablet by mouth once daily Desvenlafaxine Succinate 25 mg tablet extended release 24 hr Active 25 mg PO DAILY April 20, 2024 12:00am Start: 11-01-2023 End: 02-26-2024 take 1 tablet by mouth once daily desvenlafaxine ER (PRISTIQ) 25 mg 24 hr tablet Indications: Depressive disorder Take 1 tablet by mouth once daily. 30 tablet 4 12/08/2023 02/26/2024 Discontinued (Cost of medication) Start: 02-21-2022 End: 04-05-2024 take 1 tablet by mouth once daily desvenlafaxine ER (PRISTIQ) 25 mg 24 hr tablet Indications: Depressive disorder Take 1 tablet by mouth once daily. 30 tablet 0 09/25/2023 10/30/2023 Discontinued Comment on above: Take 1 tablet by ulisses once daily. docusate sodium 100 mg oral capsule (5 sources) Start: End: take 1 capsule by mouth twice daily docusate sodium (COLACE) 100 mg capsule Indications: Ovarian mass, right Take 1 capsule by mouth two times a day. 60 capsule 02/04/2025 03/06/2025 Active empagliflozin 25 mg oral tablet (9 sources) Sodium-Glucose Cotransporter 2 Inhibitor Start: 025 End: 026 take 1 tablet by mouth once daily at breakfast empagliflozin (JARDIANCE) 25 mg tablet Indications: Controlled type 2 diabetes mellitus without complication, without long-term current use of insulin (HCC) Take 1 tablet by mouth daily with breakfast. 90 tablet 3 11/22/2024 11/22/2025 Active enteric contrast (will be provided with radiology test) (5 sources) Start: enteric contrast (will be provided with radiology test) Indications: Intra-abdominal and pelvic swelling, mass and lump, unspecified site For CT CHESTABD/PEL W IVCON Routine order Administer, As Directed One Time Only, via Oral, Rectal, both Oral and Rectal, Enteric Tube, Stoma or Indwelling Catheter, Enteric Contrast as designated per enteric contrast guidelines 1 each 02/07/2025 Active Fleet Enema 19 g-7 g/118 mL rectal enema (1 source) Start: End: take 1 dose rectal route once daily as needed for constipation Fleet Enema 19 g-7 g/118 mL rectal enema Dose = 1 EA, Rectal, qDay, PRN as needed for constipation, # 1 EA, 0 Refill(s) Start Date: 02/07/25 Stop Date: 02/14/25 Status: Ordered Quantity: 1.0 Unit: EA Repeat number: 1 hydrOXYzine hydrochloride 10 mg oral tablet (8 sources) Antihistamine Start: take 1 tablet by mouth every eight hours as needed hydrOXYzine HCl (ATARAX) 10 mg tablet Take 10 mg by mouth three times a day as needed for anxiety. 12/13/2024 Active ibuprofen 600 mg oral tablet (2 sources) Nonsteroidal Anti-inflammatory Drug Start: take 1 tablet by mouth four times daily as needed for headache Ibuprofen 600 MG tablet Active 600 mg PO 4 TIMES DAILY as needed for Headache November 16, 2018 1:11pm iv contrast (will be provided with radiology test) (5 sources) Start: iv contrast (will be provided with radiology test) Indications: Intra-abdominal and pelvic swelling, mass and lump, unspecified site CT Chest ABD/PEL-Inject, intravenously, once for 1 dose.No IV access, insert saline lock prior to the beginning of sedation, infusion, injection of imaging exam. Discontinue saline lock post exam. If Pt. has a central line or IVAD, may access for administration according to line specific nursing protocol. Once exam is complete flush line and de-access according to line specific nursing protocol in the CT contrast administration guidelines link. 1 each 02/07/2025 Active magnesium oxide 400 mg oral tablet (20 sources) Start: 025 End: 026 take 1 tablet by mouth three times daily magnesium oxide (MAG-OX) 400 mg (241.3 mg magnesium) tablet Indications: Hypomagnesemia Take 1 tablet by mouth three times a day. 270 tablet 3 11/22/2024 11/22/2025 Active Start: 03-16-2024 End: 03-16-2025 take 1 tablet by mouth twice daily magnesium oxide (MAG-OX) 400 mg (241.3 mg magnesium) tablet Indications: Hypomagnesemia Take 1 tablet by mouth two times a day. 180 tablet 3 03/16/2024 11/22/2024 Discontinued Start: 02-27-2024 End: 02-26-2025 take 1 tablet by mouth once daily magnesium oxide (MAG-OX) 400 mg (241.3 mg magnesium) tablet Indications: Hypomagnesemia Take 1 tablet by mouth once daily. 90 tablet 3 02/27/2024 03/16/2024 Discontinued metFORMIN hydrochloride 1000 mg oral tablet (20 sources) Biguanide Start: 02-27-2024 End: 02-26-2025 take 1 tablet by mouth twice daily at mealtime metFORMIN (GLUCOPHAGE) 1,000 mg tablet Indications: Controlled type 2 diabetes mellitus without complication, without long-term current use of insulin (HCC) Take 1 tablet by mouth two times a day with meals. 180 tablet 3 02/27/2024 02/26/2025 Active Start: 11-01-2023 End: 02-27-2024 take 1 tablet by mouth twice daily at mealtime metFORMIN (GLUCOPHAGE) 850 mg tablet Indications: Controlled type 2 diabetes mellitus without complication, without long-term current use of insulin (HCC) Take 1 tablet by mouth two times a day with meals. 60 tablet 4 12/08/2023 02/27/2024 Discontinued (Clinical Decision) Start: 09-25-2023 End: 10-30-2023 take 1 tablet by mouth twice daily at mealtime metFORMIN (GLUCOPHAGE) 850 mg tablet Indications: Controlled type 2 diabetes mellitus without complication, without long-term current use of insulin (HCC) Take 1 tablet by mouth two times a day with meals. 60 tablet 0 09/25/2023 10/30/2023 Discontinued Start: 06-12-2021 End: 04-20-2024 Metformin 850 mg tablet Disc ontinued 1000 mg PO TWICE A DAY June 12, 2021 12:00am April 20, 2024 9:28pm Start: 07-24-2013 End: 09-18-2022 take 1 tablet by mouth twice daily at mealtime metFORMIN (GLUCOPHAGE) 850 mg tablet Indications: Controlled type 2 diabetes mellitus without complication, without long-term current use of insulin (HCC) Take 1 tablet by mouth twice daily with meals. 60 tablet 5 09/19/2022 Active Comment on above: Take 1 tablet by ulisses th twice daily with meals. Take 1 tablet by ulisses th two times a day with meals. metroNIDAZOLE 500 mg oral tablet (2 sources) Nitroimidazole Antimicrobial Start: 04-23-20 End: 04-30-20 take 1 tablet by mouth twice daily metroNIDAZOLE (FLAGYL) 500 mg tablet Indications: BV (bacterial vaginosis) Take 1 tablet by mouth two times a day for 7 days. 14 tablet 04/23/2024 04/30/2024 Active multivit-minerals/sadi neo fum (MULTI VITAMIN ORAL) (20 sources) take 1 tablet by mouth once daily multivit-minerals/fe rrous fum (MULTI VITAMIN ORAL) Indications: Rectal bleeding , Change in bowel habits Take 1 tablet by mouth once daily. Active multivit-mineral s/ferrous fum (MULTI VITAMIN ORAL) Indications: Rectal bleeding , Change in bowel habits Take by mouth. Active multivit-mineral s/ferrous fum (MULTI VITAMIN ORAL) Indications: Rectal bleeding , Change in bowel habits Take by mouth. 0 Active Comment on above: Take by mouth. Multivitamin tablet (2 sources) Start: 11-24-2018 Multivitamin tablet Active 1 {tbl} PO DAILY November 24, 2018 12:00am mupirocin 0.02 mg/mg topical ointment (4 sources) RNA Synthetase Inhibitor Antibacterial Start: 11-18-2024 End: 11-23-2024 mupirocin (BACTROBAN) 2 % ointment Indications: Abrasion Apply 1 application to affected area three times a day for 5 days. 22 g 11/18/2024 11/23/2024 Active Start: 11-16-2023 End: 11-21-2023 mupirocin (BACTROBAN) 2 % oi ntment Apply to affected area three times a day for 5 days. 30 g 0 11/16/2023 11/21/2023 Active Comment on above: Apply to affected ar ea three times a day for 5 days. naloxone 4 mg/actuation nasal spray (NARCAN) (5 sources) Start: 02-04-2025 naloxone 4 mg/actuation nasal spray (NARCAN) Indications: Ovarian mass, right Use 1 spray in one nostril as needed for overdose. May repeat every 2 to 3 min in alternating nostrils until medical assistance is available 1 each 02/04/2025 Active omega-3 fatty acids (FISH OIL CONCENTRATE) 1,000 mg cap (20 sources) Start: 06-12-2021 take 1 capsule by mouth once daily omega-3 fatty acids (FISH OIL CONCENTRATE) 1,000 mg cap Take 1,000 mg by mouth once daily. 06/12/2021 Active Start: 06-12-2021 take 1 capsule by mo [facility] once daily omega-3 fatty acids (FISH OIL CONCENTRATE) 1,000 mg cap Take 1,000 mg by mouth once daily. 0 06/12/2021 Active Comment on above: Take 1,000 mg by ulisses once daily. [place]-3 Fatty Acids (Fish Oil Concentrate) 1,000 mg capsule (2 sources) Start: 1 [place]-3 Fatty Acids (Fish Oil Concentrate) 1,000 mg capsule Active 1200 mg PO TWICE A DAY June 12, 2021 12:00am oxyCODONE hydrochloride 5 mg oral tablet (2 sources) Opioid Agonist Start: 5 End: 5 take 1 tablet by mouth every eight hours as needed for pain oxyCODONE IR (ROXICODONE) 5 mg immediate release tablet Indications: Ovarian mass, right Take 1 tablet by mouth every 8 hours as needed for pain for up to 7 days. 21 tablet 02/04/2025 02/11/2025 Active polyethylene glycol 3350 32108 mg powder for oral solution (19 sources) Osmotic Laxative Start: 4 take 17 g by mouth once daily polyethylene glycol 3350 17 gram/dose powder Indications: Constipation, unspecified constipation type Take 17 g by mouth once daily. 116 g 04/22/2024 Active Start: 08-30-2015 take 17 doses by ulisses once daily as needed for constipation MiraLax Dose : 17 g =, Oral, Daily, PRN Constipation Start Date: 08/30/15 Status: Ordered Repeat number: 1 Start: 08-30-2015 take 17 doses by ulisses th once daily as needed for constipation MiraLax Dose : 17 g =, Oral, Daily, PRN Constipation Start Date: 08/30/15 Status: Ordered propranolol hydrochloride 40 mg oral tablet (20 sources) beta-Adrenergic Susan Start: 11-18-2024 End: 05-17-2025 take 1 tablet by mouth twice daily propranolol (INDERAL) 40 mg tablet Indications: Migraine without aura and without status migrainosus, not intractable Take 1 tablet by mouth two times a day. 180 tablet 1 11/18/2024 05/17/2025 Active Start: 11-18-2024 End: 11-18-2024 take 1 tablet by mouth twice daily propranolol (INDERAL) 60 mg tablet Indications: Migraine without aura and without status migrainosus, not intractable Take 1 tablet by mouth two times a day. 180 tablet 1 11/18/2024 11/18/2024 Discontinued Start: 06-07-2024 End: 12-04-2024 take 0.5 tablet by mouth twice daily propranolol (INDERAL) 40 mg tablet Indications: Migraine without aura and without status migrainosus, not intractable Take 0.5 tablets by mouth two times a day. 90 tablet 1 06/07/2024 11/18/2024 Discontinued Start: 04-05-2024 take 1 tablet by ulisses every twelve hours Propranolol 20 mg tablet Active 20 mg PO Q12H April 05, 2024 12:00am Start: 09-25-2023 End: 03-23-2024 take 0.5 tablet by mouth twice daily propranolol (INDERAL) 40 mg tablet Indications: Migraine without aura and without status migrainosus, not intractable Take 0.5 tablets by mouth two times a day. 90 tablet 1 09/25/2023 Active Start: 06-12-2021 End: 04-05-2024 take 1 tablet by mouth twice daily Propranolol 20 mg tablet Discontinued 20 mg PO TWICE A DAY 60 February 04, 2022 11:52am April 15, 2022 5:50pm Start: 01-31-2021 End: 09-15-2023 take 1 tablet by mouth twice daily Propranolol 40 mg tablet Discontinued 40 mg PO TWICE A DAY May 19, 2021 12:00am June 12, 2021 5:15pm Start: 08-17-2019 propranolol Do se : 40 mg =, BID, 0 Refill(s) Start Date: 08/17/19 Status: Ordered Repeat number: 1 Start: 08-17-2019 propranolol Do se : 40 mg =, BID, 0 Refill(s) Start Date: 08/17/19 Status: Ordered Comment on above: Take 1 tablet by ulisses th twice daily. Take 0.5 tablets by mouth two times a day. rimegepant 75 mg disintegrating oral tablet (4 sources) Start: 04-15-20 End: 08-29-20 take 1 tablet by mouth once daily as needed for headache Rimegepant (Nurtec Odt) 75 mg tablet,disintegrat ing Active 75 mg PO DAILY as needed for migraine headache August 29, 2022 9:20am sennosides, long term 8.6 mg oral tablet (5 sources) Start: 02-05-20 End: 03-06-20 take 1 tablet by mouth twice daily as needed for constipation Senna 8.6 mg tab Indications: Ovarian mass, right Take 1 tablet by mouth two times a day as needed for constipation. 60 tablet 02/04/2025 03/06/2025 Active simvastatin 40 mg oral tablet (20 sources) HMG-CoA Reductase Inhibitor Start: 05-02-20 End: 11-19-19 take 1 tablet by mouth once daily at bedtime simvastatin (ZOCOR) 40 mg tablet Indications: Fatty liver Take 1 tablet by mouth daily at bedtime. 30 tablet 4 11/18/2024 Active Comment on above: Take 1 tablet by ulisses daily at bedtime. tiZANidine 4 mg oral tablet (20 sources) Central alpha-2 Adrenergic Agonist Start: 05-02-20 take 1 tablet by mouth twice daily for muscle spasms tiZANidine 4 mg oral tablet take 1 tablet by mouth twice a day if needed for muscle spasm Start Date: 05/02/18 Status: Ordered Repeat number: 1 TIZANIDINE HCL ( ZANAFLEX ORAL) Take by mouth two times a day as needed. Active TIZANIDINE HCL ( ZANAFLEX ORAL) Take by mouth twice daily. Active TIZANIDINE HCL ( ZANAFLEX ORAL) Take by mouth twice daily. 0 Active Comment on above: Take by mouth twice daily. topiramate 50 mg oral tablet (20 sources) Start: 11-01-2023 End: 06-07-2024 take 1 tablet by mouth twice daily topiramate (TOPAMAX) 50 mg tablet Take 1 tablet by mouth two times a day. 120 tablet 1 06/07/2024 Active Start: 09-25-2023 End: 10-30-2023 take 1 tablet by mouth twice daily topiramate (TOPAMAX) 50 mg tablet Take 1 tablet by mouth two times a day. 120 tablet 1 09/25/2023 10/30/2023 Discontinued Start: 04-15-2022 End: 08-29-2022 take 1 tablet by mouth twice daily Topiramate 100 mg tablet Active 100 mg PO TWICE A DAY 60 August 29, 2022 9:21am Start: 06-12-2021 End: 04-15-2022 Topiramate 50 mg tablet Disc ontinued 50 mg PO TWICE A DAY 60 September 19, 2021 2:27pm April 15, 2022 5:47pm Begin after completing 1 week course of topiramate 25 mg twice a day Start: 11-23-2020 End: 08-23-2021 topiramate (TOPAMAX) 25 mg t ablet Indications: Migraine without aura and without status migrainosus, not intractable Start one pill by mouth at bedtime X 1 week; after one week increase to one pill by mouth twice daily. 60 tablet 5 11/23/2020 08/23/2021 Discontinued (Course of therapy completed) Comment on above: Take 1 tablet by ulisses th twice daily. Take 1 tablet by ulisses th two times a day. 24 hr venlafaxine 75 mg extended release oral capsule (20 sources) Serotonin and Norepinephrine Reuptake Inhibitor Start: 11-19-19 End: 11-19-19 take 1 capsule by mouth once daily venlafaxine ER (EFFEXOR XR) 75 mg 24 hr capsule Indications: Anxiety with depression Take 1 capsule by mouth once daily. 90 capsule 3 11/18/2024 11/18/2025 Active Start: 02-26-2024 End: 02-25-2025 take 1 capsule by mouth once daily Venlafaxine 37.5 mg capsule,extended release 24hr Active 37.5 mg PO DAILY April 05, 2024 12:00am Zinc (20 sources) take 50 mg by mouth once daily Z INC ORAL Take 50 mg by mouth once daily. Active ZINC ORAL Take b y mouth. Active ZINC ORAL Take b y mouth. 0 Active Comment on above: Take by mouth. Completed/Discontinued Medications Medication Drug Class(es) Dates Sig (Normalized) Sig (Original) Blood Glucose Control High and Low (FREESTYLE CONTROL) soln (11 sources) Start: 04-29-2017 End: 02-21-2022 Blood Glucose Control High and Low (FREESTYLE CONTROL) soln Indications: Controlled type 2 diabetes mellitus without complication, without long-term current use of insulin (HCC) Test controls as needed. Dx: Type 2 DM - Controlled E11.9 1 Each 3 04/29/2017 02/21/2022 Discontinued (Discontinued by Patient) Start: 04-29-2017 Blood Glucose Control High and Low (FREESTYLE CONTROL) soln Indications: Controlled type 2 diabetes mellitus without complication, without long-term current use of insulin (HCC) Test controls as needed. Dx: Type 2 DM - Controlled E11.9 1 Each 3 04/29/2017 Active Comment on above: Test controls as nee ded. Dx: Type 2 DM - Controlled E11.9 Blood-Glucose Meter (FREESTYLE LITE METER) monitoring kit (11 sources) Start: 02-20-2015 End: 02-21-2022 Blood-Glucose Meter (FREESTYLE LITE METER) monitoring kit Indications: Type II or unspecified type diabetes mellitus without mention of complication, not stated as uncontrolled 1 Each as needed (Test once day or as needed). 1 Each 0 02/20/2015 02/21/2022 Discontinued (Discontinued by Patient) Start: 02-20-2015 Blood-Glucose Meter (FREESTYLE LITE METER) monitoring kit Indications: Type II or unspecified type diabetes mellitus without mention of complication, not stated as uncontrolled 1 Each as needed (Test once day or as needed). 1 Each 0 02/20/2015 Active Comment on above: 1 Each as needed (Te st once day or as needed). cephalexin 250 mg oral tablet (2 sources) Cephalosporin Antibacterial Start: 013 End: 014 take 1 capsule by mouth four times daily Keflex 250 MG capsule Discontinued 250 mg PO 4 TIMES DAILY July 24, 2013 1:00am October 12, 2013 12:06am docosahexanoic acid/epa (FISH OIL ORAL) (11 sources) End: docosahexanoic acid/epa (FISH OIL ORAL) Indications: Rectal bleeding , Change in bowel habits Take by mouth. 02/21/2022 Discontinued (Duplicate Entry) End: 02-21-2022 docosahexanoic acid/epa (FIS H OIL ORAL) Indications: Rectal bleeding , Change in bowel habits Take by mouth. 0 02/21/2022 Discontinued (Duplicate Entry) docosahexanoic a umesh/epa (FISH OIL ORAL) Indications: Rectal bleeding , Change in bowel habits Take by mouth. 0 Active Comment on above: Take by mouth. 1 ml medroxyPROGESTERone acetate 150 mg/ml prefilled syringe (20 sources) Progestin Start : 04-06 End: 09-15 medroxyPROGESTERone (DEPO-PROVERA) 150 mg/mL Inject 1 mL intramuscularly every 12 weeks. 1 Syringe 3 04/06/2021 09/15/2023 Discontinued (Discontinued by Patient) Comment on above: Inject 1 mL intramus cularly every 12 weeks. miSOPROStol 0.2 mg oral tablet (3 sources) Prostaglandin E1 Analog Start : 01-05 End: 01-14 miSOPROStol (CYTOTEC) 200 mcg tablet Use 2 tablets vaginally as directed. The night before the procedure and the morning of the procedure. 4 tablet 0 01/06/2024 01/15/2024 Discontinued norethindrone acetate 5 mg oral tablet (20 sources) Start : 01-14 End: 12-20 take 1 tablet by mouth once daily norethindrone (AYGESTIN) 5 mg tablet Take 1 tablet by mouth once daily. 10 tablet 01/15/2024 12/20/2024 Discontinued (Course of therapy completed) ondansetron 4 mg disintegrating oral tablet (4 sources) Serotonin-3 Receptor Antagonist Start : 06-12 End: 04-15 take 1 tablet by mouth three times daily as needed for nausea Ondansetron 4 mg tablet,disintegrating Discontinued 4 mg PO THREE TIMES A DAY as needed for Nausea 60 June 12, 2021 5:14pm April 15, 2022 5:47pm Start: 05-19-2021 End: 06-12-2021 take 2 tablets by mouth every eight hours as needed for nausea Ondansetron 4 MG tablet Discontinued 8 mg PO EVERY 8 HOURS NEEDED as needed for Nausea May 19, 2021 12:00am June 12, 2021 5:17pm predniSONE 20 mg oral tablet (2 sources) Start: 07-24-2013 End: 10-11-2013 take 2 tablets by mouth once daily Prednisone 20 MG tablet Discontinued 40 mg PO DAILY July 24, 2013 1:00am October 12, 2013 12:05am rizatriptan 10 mg disintegrating oral tablet (1 source) Serotonin-1b and Serotonin-1d Receptor Agonist Start: 11-04-2019 End: 08-23-2021 take 1 tablet by mouth every two hours as needed rizatriptan (MAXALT-COLORED LEATHER SETTER) 10 mg disintegrating tablet Indications: Migraine without aura and without status migrainosus, not intractable Take 1 tablet by mouth as needed. May repeat in 2 hours if needed 9 tablet 2 11/04/2019 08/23/2021 Discontinued sertraline 25 mg oral tablet (20 sources) Serotonin Reuptake Inhibitor Start: 11-23-2020 End: 08-22-2023 take 1 tablet by mouth at bedtime Sertraline 25 mg tablet Discontinued 25 mg PO AT BEDTIME May 19, 2021 12:00am April 15, 2022 3:33pm Comment on above: Take 1 tablet by ulisses th once daily. sulfamethoxazole 800 mg / trimethoprim 160 mg oral tablet (2 sources) Dihydrofolate Reductase Inhibitor Antibacterial, Sulfonamide Antimicrobial Start: 05-19-2021 End: 06-12-2021 Sulfamethoxazole-Tr imethoprim 1 TABLET tablet Discontinued 1 {tbl} PO TWICE A DAY May 19, 2021 12:00am June 12, 2021 8:13am SUMAtriptan 100 mg oral tablet (6 sources) Serotonin-1b and Serotonin-1d Receptor Agonist Start: 06-12-2021 End: 04-15-2022 take 1 tablet by mouth every two hours Sumatriptan Succinate 100 mg tablet Discontinued 0 PO .COMPLEX September 19, 2021 2:27pm April 15, 2022 5:47pm take 1 tab at onset of headache; if no relief, may repeat 1 tab after at least 2 hrs; max = 2 tabs/24 hrs PO Start: 11-16-2018 End: 06-12-2021 Sumatriptan (Imitrex) 20 MG spray,non-aerosol Discontinued 20 mg NASAL DAILY as needed for Migraine Symptoms 2 November 16, 2018 1:08pm June 12, 2021 8:12am may repeat in 2 hours if still having migraine valACYclovir 1000 mg oral tablet (20 sources) Herpesvirus Nucleoside Analog DNA Polymerase Inhibitor, Herpes Simplex Virus Nucleoside Analog DNA Polymerase Inhibitor, Herpes Zoster Virus Nucleoside Analog DNA Polymerase Inhibitor Start: 11-22-2019 End: 12-16-2023 valACYclovir (VALTREX) 1 gram Indications: HSV infection At onset of cold sore: one tab immediately and repeat in 12 hours (2 doses total) 12 tablet 1 11/22/2019 12/16/2023 Discontinued Comment on above: At onset of cold sor e: one tab immediately and repeat in 12 hours (2 doses total) Problems Active Problems Problem Classification Problem Date Documented Da te Episodic/Chronic Abdominal pain (6 sources) Chronic pelvic pain of female; Translations: [Pelvic and perineal pain] Onset: 02-01-2025 04-22-2024 Episodic Anxiety disorders (12 sources) Mixed anxiety and depressive disorder; Translations: [Other specified anxiety disorders] Onset: 02-26-2024 02-26-2024 Chronic Complications of surgical procedures or medical care (2 sources) Postoperative ileus; Translations: [Other postprocedural complications and disorders of digestive system] 04-29-2024 Episodic Conditions associated with dizziness or vertigo (2 sources) Dizziness; Translations: [Dizziness and giddiness] 09-18-2014 Episodic Diabetes mellitus without complication (20 sources) Type 2 diabetes mellitus without complication; Translations: [Type 2 diabetes mellitus without complications] Onset: 06-05-2009 03-30-2018 Chronic Diseases of white blood cells (5 sources) Leukocytosis; Translations: [Elevated white blood cell count, unspecified] Onset: 04-22-2024 03-16-2024 Chronic Disorders of lipid metabolism (20 sources) Hyperlipidemia; Translations: [Hyperlipidemia, unspecified] Onset: 06-05-2009 03-30-2018 Chronic Essential hypertension (2 sources) Benign essential hypertension; Translations: [Essential (primary) hypertension] 09-13-2013 Chronic Fluid and electrolyte disorders (2 sources) Hypokalemia; Translations: [Hypokalemia] 09-13-2013 Episodic Headache; including migraine (20 sources) Migraine without aura; Translations: [Migraine without aura, not intractable, without status migrainosus] Onset: 05-23-2006 08-23-2021 Chronic Headache; including migraine (2 sources) Headache; Translations: [Headache] 11-15-2018 Episodic Inflammatory diseases of female pelvic organs (1 source) Bacterial vaginosis; Translations: [Acute vaginitis] 04-23-2024 Episodic Menopausal disorders (1 source) Menorrhagia; Translations: [Excessive bleeding in the premenopausal period] 04-02-2024 Chronic Menstrual disorders (20 sources) Menometrorrhagia; Translations: [Excessive and frequent menstruation with irregular cycle] Onset: 12-16-2023 12-16-2023 Chronic Mood disorders (20 sources) Depressive disorder; Translations: [Depressive disorder] Onset: 08-20-2006 03-30-2018 Chronic Nonspecific chest pain (2 sources) Atypical chest pain; Translations: [Other chest pain] 09-18-2014 Episodic Open wounds of extremities (1 source) Open wound of toe; Translations: [Unspecified open wound of unspecified toe(s) without damage to nail, initial encounter] Episodic Other circulatory disease (1 source) Thready pulse; Translations: [Other specified symptoms and signs involving the circulatory and respiratory systems] Episodic Other congenital anomalies (20 sources) Porokeratosis; Translations: [Other specified congenital malformations of skin] Onset: 02-12-2011 02-12-2011 Chronic Other connective tissue disease (3 sources) Pain in left foot; Translations: [Pain in left foot] Episodic Other connective tissue disease (1 source) Pain in right thumb; Translations: [Pain in right finger(s)] 08-02-2021 Episodic Other endocrine disorders (20 sources) Polycystic ovary; Translations: [Polycystic ovarian syndrome] Onset: 05-23-2006 03-30-2018 Chronic Other female genital disorders (4 sources) Abnormal uterine bleeding; Translations: [Other specified abnormal uterine and vaginal bleeding] 04-02-2024 Chronic Other female genital disorders (1 source) Other specified abnormal uterine and vaginal bleeding; Translations: [Other specified abnormal uterine and vaginal bleeding] Onset: 04-22-2024 Chronic Other female genital disorders (1 source) Polyp of corpus uteri; Translations: [Polyp of corpus uteri] 01-23-2024 Episodic Other female genital disorders (1 source) Vaginal discharge; Translations: [Other specified noninflammatory disorders of vagina] 04-22-2024 Episodic Other female genital disorders (9 sources) Mass of right ovary; Translations: [Other noninflammatory disorders of ovary, fallopian tube and broad ligament] Onset: 01-18-2025 01-17-2025 Episodic Other female genital disorders (1 source) Disorder of fallopian tube and ovary; Translations: [Other noninflammatory disorders of ovary, fallopian tube and broad ligament] Onset: 02-07-2025 Episodic Other female genital disorders (1 source) Mass of ovary; Translations: [Other noninflammatory disorders of ovary, fallopian tube and broad ligament] 02-10-2025 Episodic Other female genital disorders (4 sources) Other noninflammatory disorders of ovary, fallopian tube and broad ligament; Translations: [Ovarian mass, right] Onset: 01-18-2025 Episodic Other gastrointestinal disorders (1 source) Constipation; Translations: [Constipation, unspecified] 04-22-2024 Episodic Other gastrointestinal disorders (7 sources) Finding of abdominopelvic segment of trunk; Translations: [Intra-abdominal and pelvic swelling, mass and lump, unspecified site] Onset: 02-08-2025 02-07-2025 Episodic Other gastrointestinal disorders (2 sources) Intra-abdominal and pelvic swelling, mass and lump, unspecified site; Translations: [Intra-abdominal and pelvic swelling, mass and lump, unspecified site] Onset: 02-07-2025 Episodic Other gastrointestinal disorders (1 source) Constipation, unspecified; Translations: [Constipation, unspecified] Onset: 02-07-2025 Episodic Other hereditary and degenerative nervous system conditions (20 sources) Restless legs; Translations: [Restless legs syndrome] Onset: 03-30-2018 03-30-2018 Chronic Other injuries and conditions due to external causes (1 source) Abrasion; Translations: [Other injury of unspecified body region, initial encounter] 11-18-2024 Episodic Other liver diseases (20 sources) Steatosis of liver; Translations: [Fatty (change of) liver, not elsewhere classified] Onset: 06-05-2009 06-05-2009 Chronic Other liver diseases (1 source) Fatty (change of) liver, not elsewhere classified; Translations: [Fatty liver] Onset: 06-05-2009 Chronic Other liver diseases (1 source) Elevated liver enzymes level; Translations: [Abnormal levels of other serum enzymes] Episodic Other nervous system disorders (2 sources) Acute abdominal pain; Translations: [Other acute postprocedural pain] 04-29-2024 Episodic Other nervous system disorders (2 sources) Facial paresthesia; Translations: [Paresthesia of skin] 11-15-2018 Episodic Other nervous system disorders (2 sources) Postoperative pain ; Translations: [Other acute postprocedural pain] 04-15-2024 Episodic Other nutritional; endocrine; and metabolic disorders (20 sources) Obesity; Translations: [Other obesity due to excess calories] Onset: 05-23-2006 06-07-2015 Chronic Other nutritional; endocrine; and metabolic disorders (20 sources) Obesity caused by energy imbalance; Translations: [Other obesity due to excess calories] Onset: 05-23-2006 06-07-2015 Chronic Other nutritional; endocrine; and metabolic disorders (5 sources) Hypomagnesemia; Translations: [Hypomagnesemia] 02-27-2024 Chronic Other nutritional; endocrine; and metabolic disorders (2 sources) Body mass index 30+ - obesity; Translations: [Obesity, unspecified] 11-15-2018 Chronic Other nutritional; endocrine; and metabolic disorders (1 source) Hypomagnesemia; Translations: [Hypomagnesemia] Onset: 03-15-2024 Chronic Other skin disorders (2 sources) Dystrophia unguium; Translations: [Nail dystrophy] Episodic Other upper respiratory infections (1 source) Viral upper respiratory tract infection; Translations: [Acute upper respiratory infection, unspecified] Episodic Residual codes; unclassified (2 sources) Postoperative state; Translations: [Other specified postprocedural states] 02-23-2024 Episodic Screening and history of mental health and substance abuse codes (1 source) Patient encounter status; Translations: [Encounter for screening examination for other mental health and behavioral disorders] 11-18-2024 Episodic Spondylosis; intervertebral disc disorders; other back problems (20 sources) Displacement of lumbar intervertebral disc without myelopathy; Translations: [Other intervertebral disc displacement, lumbar region] Onset: 08-04-2014 08-22-2021 Chronic Substance-related disorders (20 sources) Tobacco user; Translations: [Nicotine dependence, unspecified, uncomplicated] Onset: 06-05-2009 03-30-2018 Chronic Thyroid disorders (20 sources) Goiter; Translations: [Nontoxic goiter, unspecified] Onset: 09-28-2006 06-05-2009 Chronic Unclassified (2 sources) Finding of abdominopelvic segment of trunk 02-08-2025 Urinary tract infections (2 sources) Urinary tract infectious disease; Translations: [Urinary tract infection, site not specified] 05-27-2021 Episodic Viral infection (2 sources) Viral disease; Translations: [Viral infection, unspecified] Episodic Past or Other Problems Problem Classification Problem Date Documented Date Episodic/Chronic Asthma (20 sources) Mild intermittent asthma; Translations: [Mild intermittent asthma, uncomplicated] Onset: 05-23-2006 Resolved: 03-30-2018 03-30-2018 Chronic Biliary tract disease (20 sources) Gallstone; Translations: [Calculus of gallbladder without cholecystitis without obstruction] Onset: 10-17-2005 Resolved: 05-23-2006 05-23-2006 Episodic Calculus of urinary tract (20 sources) Ureteric stone; Translations: [Calculus of ureter] Onset: 05-23-2006 Resolved: 03-30-2018 03-30-2018 Episodic Cardiac dysrhythmias (5 sources) Palpitations; Translations: [Palpitations] Onset: 11-18-2024 11-18-2024 Episodic Diabetes or abnormal glucose tolerance complicating ; childbirth; or the puerperium (20 sources) Impaired glucose tolerance in ; Translations: [Abnormal glucose complicating ] Onset: 05-23-2006 Resolved: 03-30-2018 03-30-2018 Episodic Other aftercare (20 sources) Post-discharge follow-up; Translations: [Encounter for follow-up examination after completed treatment for conditions other than malignant neoplasm] Onset: 08-22-2021 08-22-2021 Episodic Other screening for suspected conditions (not mental disorders or infectious disease) (8 sources) Mammography abnormal; Translations: [Other abnormal and inconclusive findings on diagnostic imaging of breast] Onset: 03-15-2024 Episodic Other skin disorders (20 sources) Foot callus; Translations: [Corns and callosities] Resolved: 03-30-2018 03-30-2018 Episodic Residual codes; unclassified (20 sources) Family history of diabetes mellitus; Translations: [Family history of diabetes mellitus] Onset: 05-23-2006 Resolved: 03-30-2018 03-30-2018 Episodic Residual codes; unclassified (20 sources) Transition of care; Translations: [Other specified health status] Onset: 11-29-2018 Resolved: 08-23-2021 08-23-2021 Episodic Spondylosis; intervertebral disc disorders; other back problems (20 sources) Low back pain; Translations: [Lumbago] Onset: 05-23-2006 06-05-2009 Episodic Sprains and strains (20 sources) Lumbar sprain; Translations: [Sprain of ligaments of lumbar spine, initial encounter] Onset: 08-04-2014 Resolved: 03-30-2018 03-30-2018 Episodic Unclassified (16 sources) Transition of care; Translations: [Transition of care performed with sharing of clinical summary] Onset: 11-29-2018 Resolved: 08-23-2021 08-23-2021 Results Test Name Value Interpretation Reference Range Facility HISTORY PHYSICALon HISTORY PHYSICAL HNO ID: [id number] Author: JANEL GARCIA APRN.CNP Service: ? Author Type: Nurse Practitioner Type: H&P Filed: 02/17/2025 11:55 Note Text: [facility] HISTORY AND PHYSICAL EXAMINATION SERVICE DATE: 02/17/2025 SERVICE TIME: 11:54 AM PRIMARY CARE PHYSICIAN: Myranda Dallas APRN.BIOINFORMATICS COMPUTER SCIENTIST Assessment Patient has the following medical conditions which may affect lupis-operative course: Preop examination Patient has the following medical conditions which may affect lupis-operative course addressed in assessment and plan today. Ovarian mass, right Surgery scheduled for 02/25/2025 Hyperlipidemia Controlled with statin continue preoperatively Tobacco use disorder 11.4-pack-year history Currently vaping Encouraged to cut back prior to surgery and avoid morning of surgery Diabetes mellitus type 2, controlled, without complications (HCC) A1c 8.October Jardiance stopped 3 days prior Metformin hold morning of surgery Migraines Propranolol take morning of surgery ANESTHESIA FINDINGS: Intubation History: No history of difficult intubation Significant Anesthesia Considerations: none Airway History: No history of difficult airway Brown Activity Status Index: METS: Climb a flight of stairs or walk up a hill (5.50 METs) DASI Score: 5.5 Patient denies any chest pain or undue shortness of breath with the above physical activity. STOP-Bang Score: STOP-Bang Score: 0 [id number] Score: Diabetes history: Yes [id number] Score: ARISCAT Score: Age: <=50 Preoperative SpO2: >=96% Preoperative anemia: No Surgical incision: upper abdominal Duration of surgery: >3 hrs Emergency procedure: No ARISCAT Score: I - PHYSICAL EVALUATION AIRWAY Patient intubated: No. DENTAL Dental findings: missing tooth/teeth and teeth intact. II - ANESTHESIA PLAN Anesthetic Plan: general Beta Susan Monitoring Plan Post Procedure Analgesic Plan Prepared for Surgery: . Per patient-no optimizations requested by surgeon for plan procedure. CONSULTS: Planned Anesthetic: general The Following Tests/Procedures Have Been Initiated: No orders of the defined types were placed in this encounter. The reason for this visit is to perform a comprehensive review of the patient's past medical history, assess their current health status and obtain any additional testing required based on anesthesia guidelines. We will also identify any potential anesthesia problems or contraindications to the planned procedure. REASON FOR VISIT: Ana Hernandez is a 45 year old female who is scheduled for Procedure(s): LAPAROSCOPIC HYSTERECTOMY TOTAL FOR UTERUS 250G OR LESS (N/A) EXAM UNDER ANESTHESIA PELVIC / VAGINAL (N/A) LAPAROSCOPIC SALPINGECTOMY (Bilateral) LAPAROSCOPIC OOPHORECTOMY (Left) TRANSFUSION BLOOD (N/A) at the request of Dr. Aaron Blount for routine HANDP. My final recommendation will be communicated back to the requesting physician by way of shared medical record or letter. Subjective The patient has the following: COVID-19 Immunization Status Current Care Gaps Covid-19 Vaccine ( season) Overdue since 05/02/2024 05/29/2022 Imm Admin: COVID-19 vaccine, age 12+ yr, bivalent (MODERNA) 03/06/2022 Imm Admin: COVID-19 original vaccine, full dose, monovalent (MODERNA) 07/12/2021 Imm Admin: COVID-19 original vaccine, full dose, monovalent (MODERNA) Only the first 3 history entries have been loaded, but more history exists. CHIEF COMPLAINT: The reason for this visit is to perform a comprehensive review of the patient's past medical history, assess their current health status and obtain any additional testing required based on anesthesia guidelines. We will also identify any potential anesthesia problems or contraindications to the planned procedure. HPI: Patient is a 45 year old female who presents for pre surgical testing. Patient states she has had irregular periods for several years with her last being in November 2024. She went to the emergency room recently due to severe abdominal pain had an ultrasound showing a 7.9 cm mass. She states she has pain rated 0-10 intermittently and it often wakes her at night. She describes the pain as sharp. She uses ibuprofen and Tylenol with an occasional [place] for relief. She was referred to oncology and after discussion with the surgeon agrees to surgical intervention. REVIEW OF SYSTEMS: General: Negative for: unintentional weight change, malaise and fever. Neurological: Positive for: headaches. Negative for: seizures and strokes. Respiratory: Positive for: asthma and tobacco use. Negative for: COPD, pneumonia within 6 weeks, URI < 2 weeks and obstructive sleep apnea. Cardiovascular: Positive for: hyperlipidemia Negative for: atrial fibrillation, CAD, chest pain, CHF and DVT/PE. GI: Negative for: abdominal pain, GERD, nausea and vomiti (more content not included)... Normal [facility] NURSING PROGon 02-16-2025 NURSING PROG HNO ID: [id number] Author: ?, ?, ? Service: ? Author Type: ? Type: Nursing Progress Note Filed: 02/16/2025 15:58 Note Text: Sean from blood bank called regarding patient type and screen per lab Conf. ABO will need to be done day of surgery on 02/25/25. Normal [facility] CBC panel Auto (Bld)on 02-04 Erythrocyte distribution width (RBC) [Ratio] 11.9 % Normal 11.5-15.0 [facility] Comment on above: Order Comment: Speci men Type: BLOOD SPECIMEN Ordering Facility: [facility] Address: [address] [place] [address] Performed By: #### 5 8410-2 #### [facility] CLIA [id number] 1 [place] [address] [place] Hematocrit (Bld) [Volume fraction] 41.2 % Normal 36.0-46.0 [facility] Comment on above: Order Comment: Speci men Type: BLOOD SPECIMEN Ordering Facility: [facility] Address: [address] [place] [address] Performed By: #### 5 8410-2 #### [facility] CLIA [id number] [address] OF [facility] Hemoglobin (Bld) [Mass/Vol] 13.3 g/dL Normal 11.5-15.5 [facility] Comment on above: Order Comment: Speci men Type: BLOOD SPECIMEN Ordering Facility: [facility] Address: [address] [place] [address] Performed By: #### 5 8410-2 #### [facility] CLIA [id number] [address] STATES OF [facility] MCH (RBC) [Entitic mass] 31.5 pg Normal 26.0-34.0 [facility] Comment on above: Order Comment: Speci men Type: BLOOD SPECIMEN Ordering Facility: [facility] Address: [address] [place] [address] Performed By: #### 5 8410-2 #### [facility] CLIA [id number] [address] STATES OF [facility] MCHC (RBC) [Mass/Vol] 32.3 g/dL Normal 30.5-36.0 [facility] Comment on above: Order Comment: Speci men Type: BLOOD SPECIMEN Ordering Facility: [facility] Address: [address] [place] [address] Performed By: #### 5 8410-2 #### [facility] CLIA [id number] [address] STATES [place] MCV (RBC) [Entitic vol] 97.6 fL Normal 80.0-100.0 [facility] Comment on above: Order Comment: Speci men Type: BLOOD SPECIMEN Ordering Facility: [facility] Address: [address] [place] [address] Performed By: #### 5 8410-2 #### [facility] CLIA [id number] [address] [place] Nucleated RBC (Bld) [#/Vol] 10*3/uL Normal <0.01 [facility] Comment on above: Order Comment: Speci men Type: BLOOD SPECIMEN Ordering Facility: [facility] Address: [address] [place] [address] Performed By: #### 5 8410-2 #### [facility] CLIA [id number] [address] STATES [place] Platelet mean volume (Bld) [Entitic vol] 10.5 fL Normal 9.0-12.7 [facility] Comment on above: Order Comment: Speci men Type: BLOOD SPECIMEN Ordering Facility: [facility] Address: [address] [place] [address] Performed By: #### 5 8410-2 #### [facility] CLIA [id number] [address] [place] Platelets (Bld) [#/Vol] 276 10*3/uL Normal 150-400 [facility] Comment on above: Order Comment: Speci men Type: BLOOD SPECIMEN Ordering Facility: [facility] Address: [address] [place] [address] Performed By: #### 5 8410-2 #### [facility] CLIA [id number] [address] [place] RBC (Bld) [#/Vol] 4.22 10*6/uL Normal 3.90-5.20 [facility] Comment on above: Order Comment: Speci men Type: BLOOD SPECIMEN Ordering Facility: [facility] Address: [address] [place] [address] Performed By: #### 5 8410-2 #### [facility] CLIA [id number] [address] [place] WBC (Bld) [#/Vol] 11.16 10*3/uL High 3.70-11.00 [facility] Comment on above: Order Comment: Speci men Type: BLOOD SPECIMEN Ordering Facility: [facility] Address: [address] [place] [address] Performed By: #### 5 8410-2 #### [facility] CLIA [id number] [address] [place] [address] [place] CEA SerPl-mCncon 02-04-2025 Carcinoembryonic Ag [Mass/Vol] 2.2 ng/mL Normal <3.0 [facility] Comment on above: Order Comment: Speci men Type: FLUID SPECIMEN Ordering Facility: [facility] Address: [address] [place] [address] Result Comment: This is a [employer] assay using chemiluminescence test methodology. Results determined by different manufacturers may not be comparable Performed By: #### L [id number] #### [facility] CLIA [id number] [address] [place] [address] Cancer Ag125 SerPl-aCncon Cancer Ag 125 Qn 21 [arb'U]/mL Normal <39 [facility] Comment on above: Order Comment: Mary cabrera Type: BLOOD SPECIMEN Ordering Facility: [facility] Address: [address] [place] [address] Result Comment: CA 1 25 test methodology used is the Electrochemiluminescence Immunoassay by [employer]. Results obtained with different methods or kits cannot be used interchangeably. The reference interval is based on the 95th percentile of 240 apparently healthy premenopausal and postmenopausal women. At a cutoff value of 65 U/mL, the test sensitivity to distinguish ovarian carcinoma (FIGO stage I to IV) versus benign gynecological disease is 79%, with a specificity of 82%. Reference: Cancer Antigen 125 (CA 125 II) [package insert V 1.0 [place]an]. [employer], [place], [place] (June 2015) Performed By: #### 1 0334-1, 73811-9 #### [facility] CLIA [id number] [address] [place] [address] [place] Cancer Ag19-9 SerPl-aCncon 0 02-04-2025 Cancer Ag 19-9 Qn 63.5 [arb'U]/mL High <36.0 [facility] Comment on above: Order Comment: Speci men Type: BLOOD SPECIMEN Ordering Facility: [facility] Address: [address] [place] [address] Result Comment: [facility] er antigen 19-9 test is used as an aid in monitoring response to treatment or recurrence in patients with established pancreatic, hepatobiliary, or gastrointestinal malignancies. Clinical correlation is required. The CA 19-9 test methodology used is the Electrochemiluminescence Immunoassay by [employer]. Results obtained with different methods or kits cannot be used interchangeably. Performed By: #### 2 4108-3, 9- #### [facility] CLIA [id number] 1 [place] [address] [place] HIGH RISK HUMAN PAPILLOMA LOENIDAS (HPV), PCR FOR DETECTION AND GENOTYPINGon 02-04-2025 HPV 16 Ag Ql (Unsp spec) Not detected Normal Not detected [facility] Comment on above: Order Comment: Speci men Type: FLUID SPECIMEN Ordering Facility: [facility] Address: [address] [place] [address] Performed By: #### H PVHRT #### [facility] CLIA [id number] [address] [place] [address] [place] HPV 18 Ag Ql (Unsp spec) Not detected Normal Not detected [facility] Comment on above: Order Comment: Speci men Type: FLUID SPECIMEN Ordering Facility: [facility] Address: [address] [place] [address] Performed By: #### H PVHRT #### [facility] CLIA [id number] [address] [place] [address] [place] HPV 31+33+35+39+45+51+52+ 56+58+59+66+68 DNA MALIK+probe Ql (Cvx) Not detected Normal Not detected [facility] Comment on above: Order Comment: Speci men Type: FLUID SPECIMEN Ordering Facility: [facility] Address: [address] [place] [address] Result Comment: High Risk HPV Other Type includes HPV types 31, 33, 35, 39, 45, 51, 52, 56, 58, 59, 66 and 68. Performed By: #### H PVHRT #### [facility] CLIA [id number] [address] [place] [address] [place] PAP TESTon 02-04-2025 ADEQUACY Normal [facility] Comment on above: Order Comment: Speci men Type: FLUID SPECIMEN Ordering Facility: [facility] Address: [address] [place] [address] Result Comment: Sati sfactory for interpretation. Transformation zone present Performed By: #### L [id number] #### [facility] CLIA [id number] [address] [place] CASE REPORT Normal [facility] Comment on above: Order Comment: Speci men Type: FLUID SPECIMEN Ordering Facility: [facility] Address: [address] [place] [address] Result Comment: Gyne cologic Cytology Report Case: [id number] Authorizing Provider: Aaron Blount MD Collected: 02/04/2025 03:23 PM Ordering Location: [facility] Gynecology Oncology Received: 02/07/2025 04:32 AM First Screen: Leidy, Radha, CT, ASCP Specimen: Pap Test, ThinPrep, Cervix Performed By: #### L [id number] #### [facility] CLIA [id number] [address] OF [facility] CLINICAL HISTORY, CYTOLOGY, BUSINESS APPLICATIONS ANALYST Other (Specify) Normal [facility] Comment on above: Order Comment: Speci men Type: FLUID SPECIMEN Ordering Facility: [facility] Address: [address] [place] [address] Performed By: #### L [id number] #### [facility] CLIA [id number] [address] [place] FINAL PERFORMING LAB Normal [facility] Comment on above: Order Comment: Speci men Type: FLUID SPECIMEN Ordering Facility: [facility] Address: [address] [place] [address] Result Comment: Tech nical component, real estate legal secretary screening performed at: [facility], [address] [place] [address] CLIA: [id number] Diagnostic interpretation performed at: [facility], [address] [address] CLIA# [id number] Account Associate: Jostin Barr MD Performed By: #### L [id number] #### [facility] CLIA [id number] [address] INTERPRETATION, CYTOLOGY, BUSINESS APPLICATIONS ANALYST Normal [facility] Comment on above: Order Comment: Speci men Type: FLUID SPECIMEN Ordering Facility: [facility] Address: [address] [place] [address] Result Comment: Nega tive for intraepithelial lesion or malignancy. at 1027 EDT Performed By: #### L [id number] #### [facility] CLIA [id number] [address] [place] [address] PAP DISCLAIMER COMMENT The Pap Smear is a screening test for cervical cancer. False negative results occur with all screening tests, emphasizing the need for rescreening at recommended intervals, and clinical correlation. Normal [facility] Comment on above: Order Comment: Speci men Type: FLUID SPECIMEN Ordering Facility: [facility] Address: [address] [place] [address] Performed By: #### L [id number] #### [facility] CLIA [id number] [address] [place] [address] [place] PAP STUDENT RECRUITER COMMENT This specimen has be en analyzed by the FDA-approved [employer]TM System, which uses digital imaging and an enhanced artificial intelligence image analysis algorithm to identify roberson of interest on the microscopic slide, to assist the armature bander and pathologist in evaluating cells on ThinPrep Pap tests. Following analysis, roberson of interest on the microscopic slide selected by the algorithm are reviewed by a armature bander. If a sample requires hierarchical review, the pathologist will review the same roberson of interest selected by the algorithm prior to final interpretation. Normal [facility] Comment on above: Order Comment: Speci men Type: FLUID SPECIMEN Ordering Facility: [facility] Address: [address] [place] [address] Performed By: #### L [id number] #### [facility] CLIA [id number] 1 [place] [address] [place] Renal function 2000 panelon 02-04-2025 Albumin [Mass/Vol] 4.3 g/dL Normal 3.9-4.9 [facility] Comment on above: Order Comment: Speci men Type: BLOOD SPECIMEN Ordering Facility: [facility] Address: [address] [place] [address] Performed By: #### 1 0334-1, 83291-1 #### [facility] CLIA [id number] 1 [place] [address] [place] Anion gap [Moles/Vol] 10 mmol/L Normal 8-15 [facility] Comment on above: Order Comment: Speci men Type: BLOOD SPECIMEN Ordering Facility: [facility] Address: [address] [place] [address] Performed By: #### 1 0334-1, 36804-7 #### [facility] CLIA [id number] [address] [place] Calcium [Mass/Vol] 9.8 mg/dL Normal 8.5-10.2 [facility] Comment on above: Order Comment: Speci men Type: BLOOD SPECIMEN Ordering Facility: [facility] Address: [address] [place] [address] Performed By: #### 1 0334-1, 06650-7 #### [facility] CLIA [id number] 1 [place] [address] [place] Chloride [Moles/Vol] 102 mmol/L Normal 98-107 [facility] Comment on above: Order Comment: Speci men Type: BLOOD SPECIMEN Ordering Facility: [facility] Address: [address] [place] [address] Performed By: #### 1 0334-1, 32320-4 #### [facility] CLIA [id number] 1 [place] [address] [place] CO2 [Moles/Vol] 29 mmol/L Normal 22-30 [facility] Comment on above: Order Comment: Speci men Type: BLOOD SPECIMEN Ordering Facility: [facility] Address: [address] [place] [address] Performed By: #### 1 0334-1, 58216-9 #### [facility] CLIA [id number] [address] [place] [address] [place] [facility] Creatinine [Mass/Vol] 0.90 mg/dL Normal 0.58-0.96 [facility] Comment on above: Order Comment: Speci men Type: BLOOD SPECIMEN Ordering Facility: [facility] Address: [address] [place] [address] Performed By: #### 1 0334-1, 58050-9 #### [facility] CLIA [id number] [address] Creatinine and Glomerular filtration rate.predicted panel (S/P/Bld) 81 mL/min/1.73m??? Normal >=60 [facility] Comment on above: Order Comment: Mary men Type: BLOOD SPECIMEN Ordering Facility: [facility] Address: [address] [place] [address] Result Comment: Gilda mated Glomerular Filtration Rate (eGFR) is calculated using the 2020 CKD-EPI creatinine equation. This equation utilizes serum creatinine, sex, and age as parameters. The creatinine assay has traceable calibration to isotope dilution-mass spectrometry. Refer to KDIGO guidelines for clinical interpretation. In patients with unstable renal function, e.g. those with acute kidney injury, the eGFR may not accurately reflect actual GFR. Performed By: #### 1 0334-1, 63269-4 #### [facility] CLIA [id number] [address] [place] [address] [place] [facility] Glucose [Mass/Vol] 133 mg/dL High 74-99 [facility] Comment on above: Order Comment: Speci men Type: BLOOD SPECIMEN Ordering Facility: [facility] Address: [address] [place] [address] Result Comment: The [place] Diabetes Association (ADA) provides guidance for cutoff values for fasting glucose and random glucose. The ADA defines fasting as no caloric intake for at least 8 hours. Fasting plasma glucose results between 100 to 125 mg/dL indicate increased risk for diabetes (prediabetes). Fasting plasma glucose results greater than or equal to 126 mg/dL meet the criteria for diagnosis of diabetes. In the absence of unequivocal hyperglycemia, results should be confirmed by repeat testing. In a patient with classic symptoms of hyperglycemia or hyperglycemic crisis, random plasma glucose results greater than or equal to 200 mg/dL meet the criteria for diagnosis of diabetes. Reference: Standards of Medical Care in Diabetes 2016, [place] Diabetes Association. Diabetes Care. 2016.39(Suppl 1). Performed By: #### 1 0334-1, 88851-3 #### [facility] CLIA [id number] [address] [place] [address] [place] Phosphate [Mass/Vol] 3.4 mg/dL Normal 2.7-4.8 [facility] Comment on above: Order Comment: Speci men Type: BLOOD SPECIMEN Ordering Facility: [facility] Address: [address] [place] [address] Performed By: #### 1 0334-1, 61892-0 #### [facility] CLIA [id number] [address] [place] [address] [place] Potassium [Moles/Vol] 3.7 mmol/L Normal 3.7-5.1 [facility] Comment on above: Order Comment: Speci men Type: BLOOD SPECIMEN Ordering Facility: [facility] Address: [address] [place] [address] Performed By: #### 1 0334-1, 56211-3 #### [facility] CLIA [id number] [address] [place] [address] [place] Sodium [Moles/Vol] 141 mmol/L Normal 136-144 [facility] Comment on above: Order Comment: Speci men Type: BLOOD SPECIMEN Ordering Facility: [facility] Address: [address] [place] [address] Performed By: #### 1 0334-1, 08793-3 #### [facility] CLIA [id number] [address] [place] Urea nitrogen [Mass/Vol] 16 mg/dL Normal 7-21 [facility] Comment on above: Order Comment: Speci men Type: BLOOD SPECIMEN Ordering Facility: [facility] Address: [address] [place] [address] Performed By: #### 1 0334-1, 68007-6 #### [facility] CLIA [id number] [address] TYPE AND SCREEN,30 DAYon ABO A Normal [facility] Comment on above: Order Comment: Speci men Type: BLOOD SPECIMEN Ordering Facility: [facility] Address: [address] [place] [address] Performed By: #### T SCR30 #### [facility] CLIA [id number] [address] Rh Nom (Bld) Positive Normal [facility] Comment on above: Order Comment: Speci men Type: BLOOD SPECIMEN Ordering Facility: [facility] Address: [address] [place] [address] Performed By: #### T SCR30 #### [facility] CLIA [id number] [address] Absolute lymphocyte countOrd ered By: Mariel Espana on 01-30-2025 Lymphocytes Auto (Unsp spec) [#/Vol] 3.94 10*3/uL 0.83-4.51 [facility] Absolute neutrophil countOrd ered By: Mariel Espana on 01-30-2025 Neutrophils (Bld) [#/Vol] 5.6 10*3/uL 2.0-7.7 [facility] Amorphous sediment detection in urine sediment by light microscopyOrdered By: Mariel Espana on 01-30-2025 Amorphous sediment LM Ql (Urine sed) 1+ [facility] Anion gap in Serum or Plasma Ordered By: Mariel Espana on 01-30-2025 Anion gap [Moles/Vol] 13 mmol/L 5-15 [facility] Automated lymphocyte count a s percentage of total leukocytesOrdered By: Mariel Espana on 01-30-2025 Lymphocytes/100 WBC Auto (Unsp spec) 36.8 % 19-41 [facility] BUN/creatinine ratioOrdered By: Mariel Espana on 01-30-2025 Urea nitrogen/Creatinine [Mass ratio] 14.8 mg/mg 10- [facility] Basic Metabolic Profile (BMP )on 01-30-2025 BUN/CRE 14.8 RATIO Normal - [facility] Comment on above: Performed By: #### L 100.0500, BTSPAT, L501.5200, L500.4050 #### [facility] [address] [place], [address] Calcium [Mass/Vol] 9.8 mg/dL Normal 7.6-11.0 [facility] Comment on above: Performed By: #### L 100.0500, BTSPAT, L501.5200, L500.4050 #### [facility] [address] [place], [address] Chloride [Moles/Vol] 104 mmol/L Normal 98-108 [facility] Comment on above: Performed By: #### L 100.0500, BTSPAT, L501.5200, L500.4050 #### [facility] [address] [place], [address] CO2 [Moles/Vol] 22.3 mmol/L Normal 21.0-32.0 [facility] Comment on above: Performed By: #### L 100.0500, BTSPAT, L501.5200, L500.4050 #### [facility] [address] [place], [address] Creatinine [Mass/Vol] 0.97 mg/dL Normal 0.70-1.20 [facility] Comment on above: Performed By: #### L 100.0500, BTSPAT, L501.5200, L500.4050 #### [facility] [address] [place], [address] ECRCL 76.25 ml/min Normal 50-250 [facility] Comment on above: Performed By: #### L 100.0500, BTSPAT, L501.5200, L500.4050 #### [facility] [address] [place], [address] GAP 13 Normal 5-15 [facility] Comment on above: Performed By: #### L 100.0500, BTSPAT, L501.5200, L500.4050 #### [facility] [address] [place], [address] GFR/1.73 sq M.predicted among non-blacks MDRD (S/P/Bld) [Vol rate/Area] 74 mL/min/{1.73_m2} Normal >60 [facility] Comment on above: Result Comment: mL/m in/1.73m2 CKD-EPI Creatinine Equation (2020) Performed By: #### L 100.0500, BTSPAT, L501.5200, L500.4050 #### [facility] [address] [place], [address] Glucose [Mass/Vol] 201 mg/dL High 70-99 [facility] Comment on above: Performed By: #### L 100.0500, BTSPAT, L501.5200, L500.4050 #### [facility] [address] [place], [address] Potassium [Moles/Vol] 4.0 mmol/L Normal 3.3-5.1 [facility] Comment on above: Performed By: #### L 100.0500, BTSPAT, L501.5200, L500.4050 #### [facility] [address] [place], [address] Sodium [Moles/Vol] 139 mmol/L Normal 133-145 [facility] Comment on above: Performed By: #### L 100.0500, BTSPAT, L501.5200, L500.4050 #### [facility] [address] [place], [address] Urea nitrogen [Mass/Vol] 14 mg/dL Normal 4-19 [facility] Comment on above: Performed By: #### L 100.0500, BTSPAT, L501.5200, L500.4050 #### [facility] [address] [place], [address] Basophil percentageOrdered B y: Mariel Espana on 01-30-2025 Basophils/100 WBC (Bld) 0.8 % 0-1 [facility] Bilirubin Test strip Ql (U)O rdered By: Mariel Espana on 01-30-2025 Bilirubin Ql (U) Negative Negative [facility] CBC W/Diff, Automatedon Absolute Lymph 3.94 X10 3/uL Normal 0.83-4.51 [facility] Comment on above: Performed By: #### L 700.6800, L100.0100, L500.2500 #### [facility] [address] [place], [address] Absolute Neut 5.6 X10 3/uL Normal 2.0-7.7 [facility] Comment on above: Performed By: #### L 700.6800, L100.0100, L500.2500 #### [facility] [address] [place], [address] Basophils/100 WBC (Bld) 0.8 % Normal 0-1 [facility] Comment on above: Performed By: #### L 700.6800, L100.0100, L500.2500 #### [facility] [address] [place], [address] Eosinophils/100 WBC (Bld) 3.0 % Normal 0-5 [facility] Comment on above: Performed By: #### L 700.6800, L100.0100, L500.2500 #### [facility] [address] [place], [address] Erythrocyte distribution width (RBC) [Ratio] 11.9 % Normal 11.6-14.6 [facility] Comment on above: Performed By: #### L 700.6800, L100.0100, L500.2500 #### [facility] [address] [place], [address] Hematocrit (Bld) [Volume fraction] 40.4 % Normal 37-47 [facility] Comment on above: Performed By: #### L 700.6800, L100.0100, L500.2500 #### [facility] [address] [place], [address] Hemoglobin (Bld) [Mass/Vol] 13.5 g/dL Normal 12.0-15.0 [facility] Comment on above: Performed By: #### L 700.6800, L100.0100, L500.2500 #### [facility] [address] [place], [address] IG% 0.200 Normal 0.0-0.9 [facility] Comment on above: Result Comment: IG% - Immature Granulocytes (promyelocytes, myelocytes and metamyelocytes) > 1% indicates that a LEFT SHIFT is Present. Performed By: #### L 700.6800, L100.0100, L500.2500 #### [facility] [address] [place], [address] Lymphocytes/100 WBC (Bld) 36.8 % Normal 19-41 [facility] Comment on above: Performed By: #### L 700.6800, L100.0100, L500.2500 #### [facility] [address] [place], [address] MCH (RBC) [Entitic mass] 31.5 pg Normal 27.0-32.0 [facility] Comment on above: Performed By: #### L 700.6800, L100.0100, L500.2500 #### [facility] [address] [place], [address] MCHC (RBC) [Mass/Vol] 33.4 g/dL Normal 32-36 [facility] Comment on above: Performed By: #### L 700.6800, L100.0100, L500.2500 #### [facility] [address] [place], [address] MCV (RBC) [Entitic vol] 94.4 fL Normal 81-99 [facility] Comment on above: Performed By: #### L 700.6800, L100.0100, L500.2500 #### [facility] [address] [place], [address] Monocytes/100 WBC (Bld) 6.4 % Normal 0-10 [facility] Comment on above: Performed By: #### L 700.6800, L100.0100, L500.2500 #### [facility] [address] [place], [address] Neutrophils/100 WBC (Bld) 52.8 % Normal 47-70 [facility] Comment on above: Performed By: #### L 700.6800, L100.0100, L500.2500 #### [facility] [address] [place], [address] Nucleated RBC (Bld) [#/Vol] 0 10*3/uL Normal 0-5 [facility] Comment on above: Performed By: #### L 700.6800, L100.0100, L500.2500 #### [facility] [address] [place], [address] Platelet mean volume (Bld) [Entitic vol] 10.6 fL Normal 6.2-12.0 [facility] Comment on above: Performed By: #### L 700.6800, L100.0100, L500.2500 #### [facility] [address] [place], [address] Platelets (Bld) [#/Vol] 289 10*3/uL Normal 150-450 [facility] Comment on above: Performed By: #### L 700.6800, L100.0100, L500.2500 #### [facility] [address] [place], [address] RBC (Bld) [#/Vol] 4.28 10*6/uL Normal 4.2-5.4 [facility] Comment on above: Performed By: #### L 700.6800, L100.0100, L500.2500 #### [facility] [address], [address] RDW SD 41.0 fl Normal 35.1-43.9 [facility] Comment on above: Performed By: #### L 700.6800, L100.0100, L500.2500 #### [facility] [address] [place], [address] WBC (Bld) [#/Vol] 10.7 10*3/uL Normal 4.4-11.0 [facility] Comment on above: Performed By: #### L 700.6800, L100.0100, L500.2500 #### [facility] [address] [place], [address] Carbon dioxide, total [Moles /volume] in Central venous bloodOrdered By: Mariel Espana on 01-30-2025 CO2 [Moles/Vol] 22.3 mmol/L 21.0-32.0 [facility] Chloride assayOrdered By: Heidi Espana on 01-30-2025 Chloride [Moles/Vol] 104 mmol/L 98-108 [facility] Emergency Department Summary on 01-30-2025 Emergency Department Summary [facility] Medical Records Department [address] [place] [address] Emergency Department Summary 01/30/25 MR#: [id number] Acct: [id number] Name: ANA HERNANDEZ Rep #: [id number] : 1980 45 From: Mariel LADD PCP: Myranda Dallas, 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 She was seen in [facility] ED on 01/[address] scan and transvaginal ultrasound showing a right ovarian mass of unknown etiology but could be neoplastic. She was prescribed [place] and finished it. She has Percocet from pain management for chronic back issues which she normally only takes 1-2 times a week but she has been taking it every 6 hours. She accidentally rolled out of bed 3 days ago and this worsened her right lower quadrant pain. She feels a lot of pressure and pain with walking. She has an appointment with [facility] oncology next week. She denies fever or chills. No nausea or vomiting. No bladder or bowel symptoms. She has a history of cholecystectomy and x 1. She states they tried to do a laparoscopy and hysterectomy but were unable to due to scar tissue. [facility] Medical History Injury of back Wears glasses Depression Anxiety Fatty liver High cholesterol Restless legs Back pain Smoker Leg cramps History of echocardiogram Polycystic ovaries History of pneumonia History of gallstones Migraines Diabetes Home Medications ???Medication ???Instructions ???Recorded ???Last Taken ???Type buspirone 30 mg tablet 30 mg PO BID 05/02/18 04/14/24 His tory tizanidine 4 mg tablet 4 mg PO BID PRN muscle spasticity 05/02/18 04/14/24 History acetaminophen 650 mg/20.3 mL oral 500 mg (15.6154 mL) PO Q4H PRN AK N 11/16/18 Unknown Rx solution Headache/Temp>99F ibuprofen 600 mg tablet 600 mg PO 4X/DAY PRN Headache #1 0 11/16/18 Unknown Rx TAB multivitamin 1 tab PO DAILY 11/24/18 04/14/24 H istory simvastatin 40 mg tablet 40 mg PO QHS 05/19/21 04/14/24 His tory amitriptyline 50 mg tablet 100 mg PO QHS 06/12/21 04/14/24 Hi story omega-3 fatty acids 1,000 mg 1,200 mg PO BID 06/12/21 04/10/24 History capsule (Fish Oil Concentrate) rimegepant 75 mg disintegrating 75 mg PO DAILY PRN migraine Unknown Rx tablet (Nurtec ODT) headache #16 tabs topiramate 100 mg tablet 100 mg PO BID #60 tabs 08/29/22 Rx propranolol 20 mg tablet 20 mg PO Q12H migraine 04/05/24 History venlafaxine 37.5 mg 37.5 mg PO DAILY 04/05/24 04/14/24 History capsule,extended release 24 hr cholecalciferol (vitamin D3) 125 125 mcg PO DAILY 04/20/24 Unknown History mcg (5,000 unit) tablet (Vitamin D3) desvenlafaxine succinate 25 mg 25 mg PO DAILY 04/20/24 Unknown Hi story tablet,extended release 24 hr metformin 1,000 mg tablet 1,000 mg PO BID 04/20/24 Unknown H istory oxycodone-acetaminophen 5 mg-325 1 tab PO Q6H PRN pain 3 days #12 0 04/21/24 Unknown Rx mg tablet (Percocet) tabs oxycodone-acetaminophen 5 mg-325 1 tab PO Q6H PRN pain 3 days #10 0 01/17/25 Unknown Rx mg tablet (Percocet) tabs Allergy/AdvReac Type Severity Reaction Status Date / Time doxycycline Allergy Hives Verified 01/30/25 13:51 morphine Allergy Rash Verified 01/30/25 14:44 moxifloxacin HCl (From Allergy Hives Verified 01/30/25 13:51 Avelox) Penicillins (PCN) Allergy Hives Verified 01/30/25 13:51 Surgical History History of colonoscopy History of dilation and curettage History of selective injection of anesthetic agent around lumbar nerve root History of tonsillectomy and adenoidectomy History of section History of cholecystectomy Social History Smoking Status: Current every day smoker tobacco type: e-cigarettes Tobacco: How many years used: 6 Smokeless tobacco user: other Electronic Cigarette Use: with nicotine second hand exposure: No alcohol intake: never substance use type: does not use dillon/yazidism: None seatbelt use: always ROS ROS ED ROS Narrative Constitutional: Negative for fever, chills, malaise. GI: Positive for abdominal pain. Negative for nausea, vomiting, diarrhea, constipation, melena, hematochezia. : Negative for dysuria, hematuria or frequency. EXAM Physical Exam Narrative Exam Narrative: CONST: Patient sitting in no acute distress. EYES: Normal inspection. NECK: Normal inspection. RESP: No respiratory distress, CTAB. CVS: Regular rate and rhythm, no murmur, no gallop. ABD: Soft with RLQ tenderness and palpable mass, no guarding or cindy (more content not included)... Normal [facility] Eosinophil percentageOrdered By: Mariel Espana on 01-30-2025 Eosinophils/100 WBC (Bld) 3.0 % 0-5 [facility] Erythrocyte distribution wid th ratioOrdered By: Mariel Espana on 01-30-2025 Erythrocyte distribution width (RBC) [Ratio] 11.9 % 11.6-14.6 [facility] Erythrocyte distribution wid th standard deviationOrdered By: Mariel Espana on 01-30-2025 Erythrocyte distribution width (RBC) [Ratio] 41.0 fl 35.1-43.9 [facility] Glomerular filtration rate ( GFR) estimation/1.73 sq m using serum, plasma, or whole bOrdered By: Mariel Espana on 01-30-2025 GFR/1.73 sq M.predicted among non-blacks MDRD (S/P/Bld) [Vol rate/Area] 74 mL/min/{1.73_m2} >60 [facility] Comment on above: mL/min/1.73m2 CKD-EP I Creatinine Equation (2020) Hematocrit Auto (Bld) [Volum e fraction]Ordered By: Mariel Espana on 01-30-2025 Hematocrit (Bld) [Volume fraction] 40.4 % 37-47 [facility] Hemoglobin measurementOrdere d By: Mariel Espana on 01-30-2025 Hemoglobin (Bld) [Mass/Vol] 13.5 g/dL 12.0-15.0 [facility] Immature granulocytes/100 WB C Auto (Bld)Ordered By: Mariel Espana on 01-30-2025 Immature granulocytes/100 WBC (Bld) 0.200 % 0.0-0.9 [facility] Comment on above: IG% - Immature Granu locytes (promyelocytes, myelocytes and metamyelocytes) > 1% indicates that a LEFT SHIFT is Present. Ketones Test strip Ql (U)Ord ered By: Mariel Espana on 01-30-2025 Ketones Ql (U) Negative Negative [facility] MCV (mean corpuscular volume ) determinationOrdered By: Mariel Espana on 01-30-2025 MCV (RBC) [Entitic vol] 94.4 fL 81-99 [facility] Mean corpuscular hemoglobin (MCH) determinationOrdered By: Mariel Espana on 01-30-2025 MCH (RBC) [Entitic mass] 31.5 pg 27.0-32.0 [facility] Mean corpuscular hemoglobin concentration (MCHC) determinationOrdered By: Mariel Espana on 01-30-2025 MCHC (RBC) [Mass/Vol] 33.4 g/dL 32-36 [facility] Mean platelet volume determi nationOrdered By: Mariel Espana on 01-30-2025 Platelet mean volume (Bld) [Entitic vol] 10.6 fL 6.2-12.0 [facility] Microscopic analysis of urin e for red blood cells (RBC)Ordered By: Mariel Espana on 01-30-2025 Microscopic analysis of urine for red blood cells (RBC) 0 SEEN /hpf 0-5 [facility] Monocyte percentageOrdered B y: Mariel Espana on 01-30-2025 Monocytes/100 WBC (Bld) 6.4 % 0-10 [facility] Mucus LM Ql (Urine sed)Order ed By: Mariel Espana on 01-30-2025 Mucus Ql (Urine sed) 0 SEEN /hpf [facility] Neutrophil percentageOrdered By: Mariel Espana on 01-30-2025 Neutrophils/100 WBC (Bld) 52.8 % 47-70 [facility] Nitrite Test strip Ql (U)Ord ered By: Mariel Espana on 01-30-2025 Nitrite Ql (U) Negative Negative [facility] Nucleated red blood cell per centageOrdered By: Mariel Espana on 01-30-2025 Nucleated RBC/100 WBC (Bld) [Ratio] 0 % 0-5 [facility] Pelvic w/ Transvaginalon Pelvic w/ Transvaginal [facility] [address] [place] [address] Pelvic w/ Transvaginal MR#: [id number] Acct: [id number] Name: ANA HERNANDEZ Rep #: [id number] : 1980 F 45 From: Mirza Dick MD PCP: EVY Jefferson Status: REG ER Study: Pelvic w/ Transvaginal Date of Exam: 01/30/25 Exam# [id number] Ordering Dr: Mariel Espana PROCEDURE: PELVIC W/ TRANSVAGINAL 01/30/2025 REASON FOR EXAM: RLQ PAIN, TECHNIQUE: Transabdominal pelvic ultrasound COMPARISON: 01/17/2025 CT. FINDINGS: Uterus measures 9.1 x 5.8 x 4.0 cm. No uterine fibroids. Anteverted uterus. Endometrium measures 2 mm. Nabothian cysts are present. Right ovary measures 9.2 x 4.2 x 5.8 cm with preserved vascular flow. Right ovarian 4.2 x 3.5 x 4.1 cm cystic mass cystic region with an associated solid component and an immediately adjacent 5.8 x 4.5 x 3.9 cm bilobed region with a large solid component and a color score of 4. Left ovary measures 3.6 x 2.9 x 1.7 cm with preserved vascular flow. US/Pelvic w/ Transvaginal IMPRESSION: Right ovarian O rads 5 lesion: Needs referral to gynecological oncologists. Reading Location: [id number] CC: [employer]ER Myranda Dallas; WILBERTO Baron Payroll Coordinator: Signed Normal [facility] Platelet countOrdered By: Heidi Espana on 01-30-2025 Platelets (Bld) [#/Vol] 289 10*3/uL 150-450 [facility] Potassium measurement (mass/ volume)Ordered By: Mariel Espana on 01-30-2025 Potassium (Unsp spec) [Mass/Vol] 4.0 mmol/L 3.3-5.1 [facility] ,Serum,hCG Quali.on 01-30-2025 HCG, SERUM QUAL Negative Normal [facility] Comment on above: Performed By: #### L 100.0500, BTSPAT, L501.5200, L500.4050 #### [facility] [address] [place], [address] Protein Test strip Ql (U)Ord ered By: Mariel Espana on 01-30-2025 Protein Ql (U) TNP [facility] Comment on above: Test not performed RBC Auto (Bld) [#/Vol]Ordere d By: Mariel Espana on 01-30-2025 RBC (Bld) [#/Vol] 4.28 10*6/uL 4.2-5.4 [facility] Serum beta-hCG test, qualita tiveOrdered By: Mariel Espana on 01-30-2025 Beta HCG ( test) Ql Negative [facility] Serum creatinine measurement (mass/volume)Ordered By: Mariel Espana on 01-30-2025 Creatinine [Mass/Vol] 0.97 mg/dL 0.70-1.20 [facility] Serum glucose measurement (m ass/volume)Ordered By: Mariel Espana on 01-30-2025 Glucose [Mass/Vol] 201 mg/dL High 70-99 [facility] Serum or plasma calcium tevin urement (mass/volume)Ordered By: Mariel Espana on 01-30-2025 Calcium [Mass/Vol] 9.8 mg/dL 7.6-11.0 [facility] Serum or plasma urea nitroge n measurement (mass/volume)Ordered By: Mariel Espana on 01-30-2025 Urea nitrogen [Mass/Vol] 14 mg/dL 4-19 [facility] Sodium levelOrdered By: Mariel Espana on 01-30-2025 Sodium [Moles/Vol] 139 mmol/L 133-145 [facility] Squamous epithelial cells de tection in urine sediment by light microscopyOrdered By: Mariel Espana on 01-30-2025 Epithelial cells.squamous LM Ql (Urine sed) 0 SEEN /hpf 5-10 [facility] Urinalysis, Completeon 01-30 AMORPHOUS 1+ Normal [facility] Comment on above: Order Comment: CLEAN CATCH Performed By: #### L 100.0500, BTSPAT, L501.5200, L500.4050 #### [facility] [address] [place], [address] WBC 0-5 SEEN Normal 0-5 [facility] Comment on above: Order Comment: CLEAN CATCH Performed By: #### L 100.0500, BTSPAT, L501.5200, L500.4050 #### [facility] [address] [place], [address] BACTERIA 0 SEEN Normal None Seen [facility] Comment on above: Order Comment: CLEAN CATCH Performed By: #### L 100.0500, BTSPAT, L501.5200, L500.4050 #### [facility] [address] [place], [address] EPI,SQUAMOUS 0 SEEN Normal 5-10 [facility] Comment on above: Order Comment: CLEAN CATCH Performed By: #### L 100.0500, BTSPAT, L501.5200, L500.4050 #### [facility] [address] [place], [address] Mucus Ql (Urine sed) 0 SEEN Normal [facility] Comment on above: Order Comment: CLEAN CATCH Performed By: #### L 100.0500, BTSPAT, L501.5200, L500.4050 #### [facility] [address] [place], [address] RBC 0 SEEN Normal 0-5 [facility] Comment on above: Order Comment: CLEAN CATCH Performed By: #### L 100.0500, BTSPAT, L501.5200, L500.4050 #### [facility] [address] [place], [address] Urine clarityOrdered By: Katy Espana on 01-30-2025 Clarity (U) Clear Clear [facility] Urine color determinationOrd ered By: Mariel Espana on 01-30-2025 Color (U) Yellow Yellow [facility] Urine glucose detectionOrder ed By: Mariel Espana on 01-30-2025 Glucose Ql (U) 1000 mg/dl High Normal [facility] Urine leukocyte esterase det ection by dipstickOrdered By: Mariel Espana on 01-30-2025 Leukocyte esterase Test strip Ql (U) Negative Negative [facility] Urine pHOrdered By: Mariel dyson on 01-30-2025 pH (U) 7.0 [pH] 5.0 - 8.0 [facility] Urine sediment bacteria coun t by microscopy (number/high power field)Ordered By: Mariel Espana on 01-30-2025 Bacteria LM.HPF (Urine sed) [#/Area] 0 /[HPF] None Seen [facility] Urine specific gravity measu rementOrdered By: Mariel Espana on 01-30-2025 Specific gravity (U) [Rel density] 1.010 1.002-1.030 [facility] Urine urobilinogen measureme ntOrdered By: Mariel Espana on 01-30-2025 Urobilinogen Ql (U) Normal mg/dl Normal [facility] White blood cell (WBC) count Ordered By: Mariel Espana on 01-30-2025 WBC (Bld) [#/Vol] 10.7 10*3/uL 4.4-11.0 [facility] White blood cell countOrdere d By: Mariel Espana on 01-30-2025 White blood cell count 0-5 SEEN /hpf 0-5 [facility] CNOVon 01-18-2025 CNOV Office Visit (OBGYWM ) -------- ANA HERNANDEZ ([id number]) 1980 F Date Time Provider Department 01/18/25 12:50 PM MYRIAM RIVERA During your visit today, we recorded the following information about you: Blood pressure Weight 100/68 89.1 kg Myriam Rivera MD 01/18/2025 1:13 PM Signed Ana Hernandez is a 45 year old female who presents for problem visit pelvic mass HPI: Seen in ED yesterday with RLQ pain. 7.9 cm ovarian mass Birads 5 on US. Previous US from one year ago with a normal ovary. Still in pain. Did take pain meds this am. No bleeding. Does have nausea and vomiting and early satiety. Was going to have a hysterectomy ;ast year for bleeding however there was too much scar tissue from previous hysterectomy on laparoscopy. She was referred to [facility]. 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 LFTs elevated in past, but 06/09 - normal GOITER NOS 09/28/2006 TSH normal Lumbago 05/23/2006 Mild intermittent asthma without complication (HCC) 05/23/2006 Since age 11. No medication. Last attack > 10 years OBESITY NOS 05/23/2006 Peripheral autonomic neuropathy due to diabetes mellitus (HCC) PMH - PAST MEDICAL HISTORY OF kidney stones Polycystic ovaries 05/23/2006 Polycystic ovaries 05/23/2006 Snoring Sprain of lumbar region 08/04/2014 Tobacco use disorder 06/05/2009 Type II or unspecified type diabetes mellitus without mention of complication, not stated as uncontrolled 06/05/2009 Unspecified asthma(493.90) PAST SURGICAL HISTORY Procedure Laterality Date DELIVERY ONLY , low cervical COLONOSCOPY 08/28/2018 hemorrhoid banding L'SCOPE DX W/WO BRUSHINGS/WASHINGS 04/15/2024 LAPAROSCOPY SURG CHOLECYSTECTOMY Cholecystectomy, lap MYRINGOTOMY ASPIRAND/EUSTACHIAN TUBE NFLTJ ANES Myringotomy/tubes PAST SURGICAL HISTORY OF stents in ureter for kidney stones PAST SURGICAL HISTORY OF 08/04/2014 lumbar pain injections. TONSILLECTOMY PRIMARY/SECONDARY Tonsillectomy FAMILY HISTORY Problem Relation Age of Onset Diabetes Mother Diabetes Father Colon Cancer Father 61 Diabetes Maternal Grandmother other (Parkinson's) Maternal Grandmother Stroke Maternal Grandfather Diabetes Maternal Grandfather Colon Cancer Paternal Grandfather Social History Tobacco Use Smoking status: Former Current packs/day: 0.00 Average packs/day: 0.3 packs/day for 3.0 years (0.9 ttl pk-yrs) Types: Cigarettes Start date: 09/10/2010 Quit date: 09/10/2013 Years since quittin.3 Smokeless tobacco: Never Tobacco comments: uses E cigs Vaping Use Vaping status: current everyday user Substances: Nicotine, Flavoring Devices: Refillable tank Substance Use Topics Alcohol use: No Drug use: No Current Outpatient Medications Medication Sig hydrOXYzine HCl (ATARAX) 10 mg tablet Take 10 mg by mouth three times a day as needed for anxiety. empagliflozin (JARDIANCE) 25 mg tablet Take 1 tablet by mouth daily with breakfast. magnesium oxide (MAG-OX) 400 mg (241.3 mg magnesium) tablet Take 1 tablet by mouth three times a day. simvastatin (ZOCOR) 40 mg tablet Take 1 tablet by mouth daily at bedtime. busPIRone HCl 30 mg tablet Take 1 tablet by mouth two times a day. venlafaxine ER (EFFEXOR XR) 75 mg 24 hr capsule Take 1 capsule by mouth once daily. amitriptyline (ELAVIL) 100 mg tablet Take 1 tablet by mouth daily at bedtime. propranolol (INDERAL) 40 mg tablet Take 1 tablet by mouth two times a day. topiramate (TOPAMAX) 50 mg tablet Take 1 tablet by mouth two times a day. polyethylene glycol 3350 17 gram/dose powder Take 17 g by mouth once daily. metFORMIN (GLUCOPHAGE) 1,000 mg tablet Take 1 tablet by mouth two times a day with meals. ZINC ORAL Take 50 mg by mouth once daily. cholecalciferol, vitamin D3, (VITAMIN D3 ORAL) Take 1 tablet by mouth once daily. blood-glucose meter,mobile dev (iPeen BLOOD GLUCOSE MONITOR) lyn albuterol HFA (PROAIR HFA) 90 mcg/actuation inhaler Inhale 2 Puffs as instructed every 4 hours as needed. omega-3 fatty acids (FISH OIL CONCENTRATE) 1,000 mg cap Take 1,000 mg by mouth o (more content not included)... Normal [facility] 01-18-2025 CNPN Telephone (OBGYWM) -------- ANA HERNANDEZ ([id number]) 1980 F Date Time Provider Department 01/18/25 [facility] During your visit today, we recorded the following information about you: Edgar Mercado RN 01/18/2025 8:20 AM Signed E-mail sent to OB nursing staff by Dr. Luna 01/17/25 at 10:49pm: Patient of ours Ana Hernandez 82 presented to the ER with flank pain. CT and pelvic US show ORADS 5 ovarian cyst. Needs follow up this week deborah and possible referral to kitchen bath designer onc. Thanks, Edgar Sherman RN 01/18/2025 8:20 AM Signed Appt scheduled with today at 12:50pm. Edgar Mercado RN Allergies As of Date: 01/18/2025 Noted Allergy Reaction AVELOX (MOXIFLOXACIN HCL) 08/10/2009 2 - Rash DOXY (DOXYCYCLINE) 06/09/2009 8 - GI Upset PENICILLINS 10/17/2005 14 - Other: See Comments Comments: Mother does not recall what the reaction was and was told that she cannot take it PROZAC (FLUOXETINE HCL) 05/08/2011 14 - Other: See Comments Comments: Mother had side effects from this Date Reviewed: 01/17/2025 Reviewed by: Nivia Mooney MA - Fully Assessed Prescriptions as of 01/18/2025 - hydrOXYzine HCl (ATARAX) 10 mg tablet Take 10 mg by mouth three times a day as needed for anxiety. - empagliflozin (JARDIANCE) 25 mg tablet Take 1 tablet by mouth daily with breakfast. - magnesium oxide (MAG-OX) 400 mg (241.3 mg magnesium) tablet Take 1 tablet by mouth three times a day. - simvastatin (ZOCOR) 40 mg tablet Take 1 tablet by mouth daily at bedtime. - busPIRone HCl 30 mg tablet Take 1 tablet by mouth two times a day. - venlafaxine ER (EFFEXOR XR) 75 mg 24 hr capsule Take 1 capsule by mouth once daily. - amitriptyline (ELAVIL) 100 mg tablet Take 1 tablet by mouth daily at bedtime. - propranolol (INDERAL) 40 mg tablet Take 1 tablet by mouth two times a day. - topiramate (TOPAMAX) 50 mg tablet Take 1 tablet by mouth two times a day. - polyethylene glycol 3350 17 gram/dose powder Take 17 g by mouth once daily. - metFORMIN (GLUCOPHAGE) 1,000 mg tablet Take 1 tablet by mouth two times a day with meals. - ZINC ORAL Take 50 mg by mouth once daily. - cholecalciferol, vitamin D3, (VITAMIN D3 ORAL) Take 1 tablet by mouth once daily. - blood-glucose meter,mobile dev (HOLLY BLOOD GLUCOSE MONITOR) lyn - albuterol HFA (PROAIR HFA) 90 mcg/actuation inhaler Inhale 2 Puffs as instructed every 4 hours as needed. - omega-3 fatty acids (FISH OIL CONCENTRATE) 1,000 mg cap Take 1,000 mg by mouth once daily. - HYDROcodone-acetaminophe n (NORCO) 5-325 mg per tablet Take 5-325 tablets by mouth twice daily as needed. - multivit-minerals/ferrou s fum (MULTI VITAMIN ORAL) Take 1 tablet by mouth once daily. - TIZANIDINE HCL (ZANAFLEX ORAL) Take by mouth two times a day as needed. Problem List As Of Date 01/18/2025 Noted Resolved CHOLELITHIASIS NOS [K80.20] 10/17/2005 05/23/2006 Mild intermittent asthma without complication [*05/23/2006 03/30/2018 Common migraine [G43.009] 05/23/2006 Abnormal maternal glucose tolerance, antepartum*05/23/2006 03/30/2018 Family history of diabetes mellitus [Z83.3] 05/23/2006 03/30/2018 Polycystic ovaries [E28.2] 05/23/2006 Obesity due to excess calories [E66.09] 05/23/2006 Calculus of ureter [N20.1] 05/23/2006 03/30/2018 Lumbago [M54.50] 05/23/2006 Depressive disorder [F32.A] 08/20/2006 Goiter, euthyroid [E04.9] 09/28/2006 Fatty Liver [K76.0] 06/05/2009 Hyperlipidemia [E78.5] 06/05/2009 Diabetes mellitus type 2, controlled, without c*06/05/2009 Tobacco use disorder [F17.200] 06/05/2009 Porokeratosis [Q82.8] 02/12/2011 Cervicalgia [M54.2] 01/14/2013 Callus of foot [L84] 03/30/2018 Displacement of lumbar intervertebral disc with*08/04/2014 Sprain of lumbar region [S33.5XXA] 08/04/2014 03/30/2018 RLS (restless legs syndrome) [G25.81] 03/30/2018 Transition of care performed with sharing of cl*11/29/2018 08/23/2021 Hospital discharge follow-up [Z09] 08/22/2021 Menorrhagia with irregular cycle [N92.1] 12/16/2023 Dysmenorrhea [N94.6] 12/16/2023 Encounter Status:Closed by EDGAR MERCADO on 01/18/25 Normal [facility] Abdomen/Pelvis without Conto n 01-17-2025 Abdomen/Pelvis without Cont [facility] Imaging Services [address] [place] [address] Abdomen/Pelvis without Cont MR#: [id number] Acct: [id number] Name: ANA HERNANDEZ Rep #: [id number] : 1980 F 45 From: Luis Carlos Back MD PCP: Myranda Dallas, EVY Status: REG ER Study: Abdomen/Pelvis without Cont Date of Exam: 12/30 05/26 Exam# [id number] Ordering Dr: Jostin Stone DO PROCEDURE: ABDOMEN/PELVIS WITHOUT CONT 01/17/2025 REASON FOR EXAM: PAIN TECHNIQUE: Abdomen and pelvis CT without intravenous contrast. Noncontrast technique limits evaluation of the abdominal and pelvic viscera. Coronal and Sagittal reconstruction series were provided. One or more dose reduction techniques were used (e.g., Automated exposure control, adjustment of the mA and/or kV according to patient size, use of iterative reconstruction technique). PATIENT PREPARATION: Per protocol CTDIvol: 21.0 mGy DLP: 1083 mGy-cm COMPARISON: Abdominal radiographs 04/20/2024 FINDINGS: Lung bases: Unremarkable Liver: Normal size. No obvious mass. Gallbladder: Not visualized Spleen: Normal size. Pancreas: Normal size. No surrounding inflammation. Adrenals: Unremarkable Kidneys: Nonobstructing stone measuring 2 mm in the right kidney. No hydronephrosis. Bladder: Unremarkable. Reproductive Organs: Heterogeneous lesion in the right posterior pelvis, posterior to the lower uterine segment and cervix, measuring 6.9 x 6.5 by 3.7 cm. Bowel: No obstruction or inflammation. Normal appendix. Lymph nodes: No lymphadenopathy. Vasculature: Unremarkable Bones: Unremarkable CT/Abdomen/Pelvis without Cont IMPRESSION: 1. Heterogeneous lesion in the rectouterine pouch measuring up to 6.9 cm, favored to be uterine or ovarian in origin, though the sigmoid colon is also in close proximity. Recommend pelvic ultrasound for further evaluation. 2. Punctate 2 mm nonobstructing stone in the right kidney. No hydronephrosis. Reading Location: [facility] CC: SCHOOL AGE TEACHER Myranda Dallas; Dr. Jostin Stone DO Payroll Coordinator: Signed Normal [facility] Absolute lymphocyte countOrd ered By: Jostin Stone on 01-17-2025 Lymphocytes Auto (Unsp spec) [#/Vol] 5.18 10*3/uL High 0.83-4.51 [facility] Absolute neutrophil countOrd ered By: Jostin Stone on 01-17-2025 Neutrophils (Bld) [#/Vol] 6.8 10*3/uL 2.0-7.7 [facility] Anion gap in Serum or Plasma Ordered By: Jostin Benjamínsofía on 01-17-2025 Anion gap [Moles/Vol] 15 mmol/L 01-13 [facility] Automated lymphocyte count a s percentage of total leukocytesOrdered By: Jostin Benjamínsofía on 01-17-2025 Lymphocytes/100 WBC Auto (Unsp spec) 40.0 % [facility] BUN/creatinine ratioOrdered By: Jostinjanusz Stone on 01-17-2025 Urea nitrogen/Creatinine [Mass ratio] 16.3 mg/mg 06-20 [facility] Basic Metabolic Profile (BMP )on 01-17-2025 BUN/CRE 16.3 RATIO Normal 06-20 [facility] Comment on above: Performed By: #### L 500.2500, L700.6800, L100.0100 #### [facility] [address] [place], [address] ECRCL 74.27 ml/min Normal 50-250 [facility] Comment on above: Performed By: #### L 500.2500, L700.6800, L100.0100 #### [facility] [address] [place], [address] GAP 15 Normal - [facility] Comment on above: Performed By: #### L 500.2500, L700.6800, L100.0100 #### [facility] [address] [place], [address] Potassium [Moles/Vol] 3.9 mmol/L Normal 3.3-5.1 [facility] Comment on above: Result Comment: Hemo lysis present, Results??could be affected. ?? Performed By: #### L 500.2500, L700.6800, L100.0100 #### [facility] [address] [place], [address] Basophil percentageOrdered B y: Jostin Stone on 01-17-2025 Basophils/100 WBC (Bld) 0.5 % 0-1 [facility] Bilirubin Test strip Ql (U)O rdered By: Jostin Stone on 01-17-2025 Bilirubin Ql (U) Negative Negative [facility] CBC W/Diff, Automatedon 05 PLT EST ADEQUATE Normal ADEQ [facility] Comment on above: Performed By: #### L 500.2500, L700.6800, L100.0100 #### [facility] [address] [place], [address] CNOVon 01-17-2025 CNOV Office Visit (UCWSTR ) -------- ANA HERNANDEZ ([id number]) 1980 F Date Time Provider Department 01/17/25 6:00 PM [address] ALBA [facility] During your visit today, we recorded the following information about you: Temperature Pulse Respiration Blood pressure 97 degrees 78/minute 16/minute 160/84 Weight 88.6 kg David Alba APRN.BIOINFORMATICS COMPUTER SCIENTIST 01/17/2025 6:19 PM Signed Subjective HPI Nontoxic-appearing 45-year-old female presents urgent care chief plaint abdominal pain. Duration of symptoms 9 days. Associated symptoms worsening left lower abdominal pain. States feels like she has a kidney stone. OTC medications none. Vomiting none. Fevers none. States she is feeling more weak. Rates pain 10 out of 10. Past medical history prescription medications allergies reviewed. .Patient presents with: Back Pain: lower right side back and lower right sided abdominal pain x 9 days PAST MEDICAL HISTORY Diagnosis Date ABN GLUCOSE-ANTEPARTUM 05/23/2006 ASTHMA UNSPECIFIED 05/23/2006 Calculus of ureter 05/23/2006 Callus of foot Callus of foot COMMON MIGRAINE W/O MENTN INTRACT 05/23/2006 DEPRESSIVE DISORDER NEC 08/20/200606/09 -Stable, no meds Family history of diabetes mellitus 05/23/2006 Mother, Father, Maternal Grandparents FAMILY HX DIABETES MELLITUS 05/23/2006 Mother, Father, Maternal Grandparents Fatty liver 06/05/2009 CT Scan 01/06, showed diffuse fatty liver. LFTs elevated in past, but 06/09 - normal GOITER NOS 09/28/2006 TSH normal Lumbago 05/23/2006 Mild intermittent asthma without complication (HCC) 05/23/2006 Since age 11. No medication. Last attack > 10 years OBESITY NOS 05/23/2006 Peripheral autonomic neuropathy due to diabetes mellitus (HCC) PMH - PAST MEDICAL HISTORY OF kidney stones Polycystic ovaries 05/23/2006 Polycystic ovaries 05/23/2006 Snoring Sprain of lumbar region 08/04/2014 Tobacco use disorder 06/05/2009 Type II or unspecified type diabetes mellitus without mention of complication, not stated as uncontrolled 06/05/2009 Unspecified asthma(493.90) PAST SURGICAL HISTORY Procedure Laterality Date DELIVERY ONLY , low cervical COLONOSCOPY 08/28/2018 hemorrhoid banding L'SCOPE DX W/WO BRUSHINGS/WASHINGS 04/15/2024 LAPAROSCOPY SURG CHOLECYSTECTOMY Cholecystectomy, lap MYRINGOTOMY ASPIRAND/EUSTACHIAN TUBE NFLTJ ANES Myringotomy/tubes PAST SURGICAL HISTORY OF stents in ureter for kidney stones PAST SURGICAL HISTORY OF 08/04/2014 lumbar pain injections. TONSILLECTOMY PRIMARY/SECONDARY Tonsillectomy ALLERGIES Avelox [Moxifloxacin Hcl], Doxy [Doxycycline], Penicillins, and Prozac [Fluoxetine Hcl] MEDICATIONS hydrOXYzine HCl (ATARAX) 10 mg tablet Take 10 mg by mouth three times a day as needed for anxiety. empagliflozin (JARDIANCE) 25 mg tablet Take 1 tablet by mouth daily with breakfast. magnesium oxide (MAG-OX) 400 mg (241.3 mg magnesium) tablet Take 1 tablet by mouth three times a day. simvastatin (ZOCOR) 40 mg tablet Take 1 tablet by mouth daily at bedtime. busPIRone HCl 30 mg tablet Take 1 tablet by mouth two times a day. venlafaxine ER (EFFEXOR XR) 75 mg 24 hr capsule Take 1 capsule by mouth once daily. amitriptyline (ELAVIL) 100 mg tablet Take 1 tablet by mouth daily at bedtime. propranolol (INDERAL) 40 mg tablet Take 1 tablet by mouth two times a day. topiramate (TOPAMAX) 50 mg tablet Take 1 tablet by mouth two times a day. polyethylene glycol 3350 17 gram/dose powder Take 17 g by mouth once daily. metFORMIN (GLUCOPHAGE) 1,000 mg tablet Take 1 tablet by mouth two times a day with meals. ZINC ORAL Take 50 mg by mouth once daily. cholecalciferol, vitamin D3, (VITAMIN D3 ORAL) Take 1 tablet by mouth once daily. blood-glucose meter,mobile dev (iPeen BLOOD GLUCOSE MONITOR) lyn albuterol HFA (PROAIR HFA) 90 mcg/actuation inhaler Inhale 2 Puffs as instructed every 4 hours as needed. omega-3 fatty acids (FISH OIL CONCENTRATE) 1,000 mg cap Take 1,000 mg by mouth once daily. HYDROcodone-acetaminophe n (NORCO) 5-325 mg per tablet Take 5-325 tablets by mouth twice daily as needed. multivit-minerals/ferrou s fum (MULTI VITAMIN ORAL) Take 1 tablet by mouth once daily. TIZANIDINE HCL (ZANAFLEX ORAL) Take by mouth two times a day as needed. FAMILY HISTORY Problem Relation Age of Onset Diabetes Mother Diabetes Father Colon Cancer Father 61 Diabetes Maternal Grandmother other (Parkinson's) Maternal Grandmother Stroke Maternal Grandfather Diabetes Maternal Grandfather Colon Cancer Paternal Grandfather Social History Tobacco Use Smoking status: Former Current packs/day: 0.00 Average packs/day: 0.3 packs/day for 3.0 years (0.9 ttl pk-yrs) Types: Cigarettes Start date: 09/10/2010 Quit date: 09/10/2013 Years since quittin.3 Smokeless tobacco: Never Tobacco comments: uses E cigs Vaping Use Vaping status: curr (more content not included)... Normal [facility] Carbon dioxide, total [Moles /volume] in Central venous bloodOrdered By: Jostin Stone on 01-17-2025 CO2 [Moles/Vol] 18.8 mmol/L Low 21.0-32.0 [facility] Comment on above: Performed By: #### L 500.2500, L700.6800, L100.0100 #### [facility] [address] [place], [address] Chloride assayOrdered By: Herman Stone on 01-17-2025 Chloride [Moles/Vol] 104 mmol/L Normal 98-108 [facility] Comment on above: Performed By: #### L 500.2500, L700.6800, L100.0100 #### [facility] [address] [place], [address] Emergency Department Summary on 01-17-2025 Emergency Department Summary [facility] Medical Records Department 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 Patient describes it as cramping and sharp. Patient states it is over the right flank and right lower abdomen. Patient states she has taken some pain medication at home which has been helping. Patient states nothing makes her pain worse. Patient admits to some nausea but denies any vomiting. Patient also admits to a mild headache. Patient denies any fevers or chills. Patient denies any dysuria or hematuria. [facility] Medical History Injury of back Wears glasses Depression Anxiety Fatty liver High cholesterol Restless legs Back pain Smoker Leg cramps History of echocardiogram Polycystic ovaries History of pneumonia History of gallstones Migraines Diabetes Home Medications ???Medication ???Instructions ???Recorded ???Last Taken ???Type buspirone 30 mg tablet 30 mg PO BID 05/02/18 04/14/24 His tory tizanidine 4 mg tablet 4 mg PO BID PRN muscle spasticity 05/02/18 04/14/24 History acetaminophen 650 mg/20.3 mL oral 500 mg (15.6154 mL) PO Q4H PRN AK N 11/16/18 Unknown Rx solution Headache/Temp>99F ibuprofen 600 mg tablet 600 mg PO 4X/DAY PRN Headache #1 0 11/16/18 Unknown Rx TAB multivitamin 1 tab PO DAILY 11/24/18 04/14/24 H istory simvastatin 40 mg tablet 40 mg PO QHS 05/19/21 04/14/24 His tory amitriptyline 50 mg tablet 100 mg PO QHS 06/12/21 04/14/24 Hi story omega-3 fatty acids 1,000 mg 1,200 mg PO BID 06/12/21 04/10/24 History capsule (Fish Oil Concentrate) rimegepant 75 mg disintegrating 75 mg PO DAILY PRN migraine Unknown Rx tablet (Nurtec ODT) headache #16 tabs topiramate 100 mg tablet 100 mg PO BID #60 tabs 08/29/22 Rx propranolol 20 mg tablet 20 mg PO Q12H migraine 04/05/24 History venlafaxine 37.5 mg 37.5 mg PO DAILY 04/05/24 04/14/24 History capsule,extended release 24 hr cholecalciferol (vitamin D3) 125 125 mcg PO DAILY 04/20/24 Unknown History mcg (5,000 unit) tablet (Vitamin D3) desvenlafaxine succinate 25 mg 25 mg PO DAILY 04/20/24 Unknown Hi story tablet,extended release 24 hr metformin 1,000 mg tablet 1,000 mg PO BID 04/20/24 Unknown H istory oxycodone-acetaminophen 5 mg-325 1 tab PO Q6H PRN pain 3 days #12 0 04/21/24 Unknown Rx mg tablet (Percocet) tabs oxycodone-acetaminophen 5 mg-325 1 tab PO Q6H PRN pain 3 days #10 0 01/17/25 Unknown Rx mg tablet (Percocet) tabs Allergy/AdvReac Type Severity Reaction Status Date / Time doxycycline Allergy Hives Verified 01/17/25 18:28 moxifloxacin HCl (From Allergy Hives Verified 01/17/25 18:28 Avelox) Penicillins (PCN) Allergy Hives Verified 01/17/25 18:28 Surgical History History of colonoscopy History of dilation and curettage History of selective injection of anesthetic agent around lumbar nerve root History of tonsillectomy and adenoidectomy History of section History of cholecystectomy Social History Smoking Status: Current every day smoker tobacco type: e-cigarettes Tobacco: How many years used: 6 Smokeless tobacco user: other Electronic Cigarette Use: with nicotine second hand exposure: No alcohol intake: never substance use type: does not use dillon/yazidism: None seatbelt use: always ROS ROS ED Constitutional Constitutional ED: Denies chills or fever(s) Eyes Eyes: Denies blurry vision or change in vision ENT ENT ED: Denies rhinorrhea or sore throat Cardiovascular Cardiovascular: Denies chest pain or palpitations Respiratory/Chest Respiratory/Chest: Denies cough or dyspnea Gastrointestinal Gastrointestinal: Reports abdominal pain and nausea; Denies vomiting Genitourinary Genitourinary ED: Denies dysuria or hematuria Musculoskeletal Musculoskeletal: Reports back pain; Denies neck pain Integumentary Denies abscess or rash Neurologic Neurologic: Reports headache(s); Denies weakness Allergic/Immunologic Allergic/Immunologic ED: Denies ulisses (more content not included)... Normal [facility] Eosinophil percentageOrdered By: Jostin Stone on 01-17-2025 Eosinophils/100 WBC (Bld) 1.7 % 0-5 [facility] Erythrocyte distribution wid th ratioOrdered By: Jostin Stone on 01-17-2025 Erythrocyte distribution width (RBC) [Ratio] 12.4 % 11.6-14.6 [facility] Erythrocyte distribution wid th standard deviationOrdered By: Jostin Stone on 01-17-2025 Erythrocyte distribution width (RBC) [Ratio] 41.7 fl 35.1-43.9 [facility] Glomerular filtration rate ( GFR) estimation/1.73 sq m using serum, plasma, or whole bOrdered By: Jostin Stone on 01-17-2025 GFR/1.73 sq M.predicted among non-blacks MDRD (S/P/Bld) [Vol rate/Area] 71 mL/min/{1.73_m2} Normal >60 [facility] Comment on above: mL/min/1.73m2 CKD-EP I Creatinine Equation (2020) Result Comment: mL/m in/1.73m2 CKD-EPI Creatinine Equation (2020) Performed By: #### L 500.2500, L700.6800, L100.0100 #### [facility] [address] [place], [address] Hematocrit Auto (Bld) [Volum e fraction]Ordered By: Jostin Stone on 01-17-2025 Hematocrit (Bld) [Volume fraction] 41.8 % 37-47 [facility] Hemoglobin measurementOrdere d By: Jostin Stone on 01-17-2025 Hemoglobin (Bld) [Mass/Vol] 14.4 g/dL 12.0-15.0 [facility] Immature granulocytes/100 WB C Auto (Bld)Ordered By: Jostin Stone on 01-17-2025 Immature granulocytes/100 WBC (Bld) 0.200 % 0.0-0.9 [facility] Comment on above: IG% - Immature Granu locytes (promyelocytes, myelocytes and metamyelocytes) > 1% indicates that a LEFT SHIFT is Present. Ketones Test strip Ql (U)Ord ered By: Jostin Stone on 01-17-2025 Ketones Ql (U) 15 mg/dl High Negative [facility] MCV (mean corpuscular volume ) determinationOrdered By: Jostin Stone on 01-17-2025 MCV (RBC) [Entitic vol] 92.7 fL 81-99 [facility] Mean corpuscular hemoglobin (MCH) determinationOrdered By: Jostin Stone on 01-17-2025 MCH (RBC) [Entitic mass] 31.9 pg 27.0-32.0 [facility] Mean corpuscular hemoglobin concentration (MCHC) determinationOrdered By: Jostin Stone on 01-17-2025 MCHC (RBC) [Mass/Vol] 34.4 g/dL 32-36 [facility] Mean platelet volume determi nationOrdered By: Jostin Stone on 01-17-2025 Platelet mean volume (Bld) [Entitic vol] 12.1 fL High 6.2-12.0 [facility] Microscopic analysis of urin e for red blood cells (RBC)Ordered By: Jostin Stone on 01-17-2025 Microscopic analysis of urine for red blood cells (RBC) 0 SEEN /hpf 0-5 [facility] Monocyte percentageOrdered B y: Jostin Stone on 01-17-2025 Monocytes/100 WBC (Bld) 4.9 % 0-10 [facility] Mucus LM Ql (Urine sed)Order ed By: Jostin Stone on 01-17-2025 Mucus Ql (Urine sed) 0 SEEN /hpf [facility] Neutrophil percentageOrdered By: Jostin Stone on 01-17-2025 Neutrophils/100 WBC (Bld) 52.7 % 47-70 [facility] Nitrite Test strip Ql (U)Ord ered By: Jostin Stone on 01-17-2025 Nitrite Ql (U) Negative Negative [facility] Nucleated red blood cell per centageOrdered By: Jostin Stone on 01-17-2025 Nucleated RBC/100 WBC (Bld) [Ratio] 0 % 0-5 [facility] Platelet countOrdered By: Herman Stone on 01-17-2025 Platelets (Bld) [#/Vol] 260 10*3/uL 150-450 [facility] Platelet estimateOrdered By: Jostin Stone on 01-17-2025 Platelets LM Ql (Bld) ADEQUATE ADEQ [facility] Potassium measurement (mass/ volume)Ordered By: Jostin Stone on 01-17-2025 Potassium (Unsp spec) [Mass/Vol] 3.9 mmol/L 3.3-5.1 [facility] Comment on above: Hemolysis present, R esults could be affected. ,Serum,hCG Quali.on 01-17-2025 HCG, SERUM QUAL Negative Normal [facility] Comment on above: Performed By: #### L 500.2500, L700.6800, L100.0100 #### [facility] [address] [place], [address] Protein Test strip Ql (U)Ord ered By: Jostin Stone on 01-17-2025 Protein Ql (U) 15 mg/dl High Negative [facility] RBC Auto (Bld) [#/Vol]Ordere d By: Jostin Stone on 01-17-2025 RBC (Bld) [#/Vol] 4.51 10*6/uL 4.2-5.4 [facility] Serum beta-hCG test, qualita tiveOrdered By: Jostin Stone on 01-17-2025 Beta HCG ( test) Ql Negative [facility] Serum creatinine measurement (mass/volume)Ordered By: Jostin Stone on 01-17-2025 Creatinine [Mass/Vol] 1.00 mg/dL Normal 0.70-1.20 [facility] Comment on above: Performed By: #### L 500.2500, L700.6800, L100.0100 #### [facility] [address] [place], [address] Serum glucose measurement (m ass/volume)Ordered By: Jostin Stone on 01-17-2025 Glucose [Mass/Vol] 135 mg/dL High 70-99 [facility] Comment on above: Performed By: #### L 500.2500, L700.6800, L100.0100 #### [facility] [address] [place], [address] Serum or plasma calcium tevin urement (mass/volume)Ordered By: Jostin Stone on 01-17-2025 Calcium [Mass/Vol] 9.6 mg/dL Normal 7.6-11.0 [facility] Comment on above: Performed By: #### L 500.2500, L700.6800, L100.0100 #### [facility] [address] [place], [address] Serum or plasma urea nitroge n measurement (mass/volume)Ordered By: Jostin Stone on 01-17-2025 Urea nitrogen [Mass/Vol] 16 mg/dL Normal 4-19 [facility] Comment on above: Performed By: #### L 500.2500, L700.6800, L100.0100 #### [facility] [address] [place], [address] Sodium levelOrdered By: Jostin Stone on 01-17-2025 Sodium [Moles/Vol] 137 mmol/L Normal 133-145 [facility] Comment on above: Performed By: #### L 500.2500, L700.6800, L100.0100 #### [facility] [address] [place], [address] Squamous epithelial cells de tection in urine sediment by light microscopyOrdered By: Jostin Stone on 01-17-2025 Epithelial cells.squamous LM Ql (Urine sed) 0-5 SEEN /hpf 5-10 [facility] Transitional cells detection in urine sediment by light microscopyOrdered By: Jostin Stone on 01-17-2025 Transitional cells LM Ql (Urine sed) 0-5 SEEN /hpf 0-5 [facility] Transvaginal Non-on 01-17-2025 Transvaginal Non- [facility] [address] [place], [place] [address] Transvaginal Non- MR#: [id number] Acct: [id number] Name: ANA HERNANDEZ Rep #: [id number] : 1980 F 45 From: Luis Carlos Back MD PCP: Myranda [place], [employer]ER Status: REG ER Study: Transvaginal Non- Date of Exam: Exam# [id number] Ordering Dr: Jostin Stone DO PROCEDURE: TRANSVAGINAL NON- 01/17/2025 REASON FOR EXAM: PELVIC MASS TECHNIQUE: Transabdominal and transvaginal pelvic ultrasound. Color and spectral doppler analysis of the ovaries. COMPARISON: CT abdomen and pelvis 01/17/2025 FINDINGS: Measurements: Uterus: 7.2 x 4.3 x 5.1 cm for volume of 82.0 mL Endometrial Thickness: 0.9 cm Right Ovary: 7.9 x 3.7 x 7.2 cm for volume of 109.8 mL Left Ovary: 3.2 x 1.9 x 2.4 cm for volume of 7.8 mL Uterus: Anteverted. Normal contour and myometrial echotexture. Endometrium: Normal echotexture. Right ovary: There is a multilocular cystic lesion which appears to arise from the right ovary. There is a cystic component containing low lying internal echoes measuring 3.9 x 3.3 cm, with a solid papillary projection measuring 1.6 cm and containing internal color flow (color score 3-4), without significant posterior shadowing of the solid component. On the cinematic imaging there are additional papillary projections noted within the cystic spaces. Left ovary: Normal size and echotexture. Arterial and venous waveforms are identified within both ovaries. Cul-de-sac: No free intraperitoneal fluid identified. US/Transvaginal Non- IMPRESSION: Multilocular cyst with solid components, which appears to arise from the right ovary and measures up to 7.9 cm in aggregate size. Findings are consistent with O-RADS 5 classification (High Risk). Recommend [employer]-Oncology referral. Yellow Alert: High Risk ovarian mass The critical information above was relayed directly by me by telephone to Jostin Stone on 01/17/2025 at 10:18 pm with readback verification. Reading Location: [facility] CC: EVY Dallas; Dr. Jostin Stone DO Payroll Coordinator: Signed Normal [facility] UA DIP, URINE (POC)on 2024 BILIRUBIN UA (POCT) Negative Negative [facility] CLARITY UA (POCT) Clear [facility] COLOR UA (POCT) Yellow [facility] GLUCOSE UA (POCT) >=1000 Abnormal Negative mg/dL [facility] Hemoglobin Ql (U) Negative Negative [facility] Interpretation and review of laboratory results Abnormal [facility] KETONE UA (POCT) Trace Negative mg/dL [facility] LEUKOCYTES UA (POCT) Negative Negative [facility] NITRITE UA (POCT) Negative Negative [facility] PH UA (POCT) 6 4.5 - 8.0 [facility] Protein Ql (U) Negative Negative mg/dL [facility] SPECIFIC GRAVITY UA (POCT) 1.01 1.005 - 1.030 [facility] UROBILINOGEN UA (POCT) 0.2 Normal E.U./dL [facility] Location:[facility], [address] [place] [address], [place], [address] [facility] POINT OF CARE [facility] Urinalysis, Completeon 01-17 EPI,SQUAMOUS 0-5 SEEN Normal 5-10 [facility] Comment on above: Order Comment: DILIA CTOR TO SPECIFY Performed By: #### L 100.0500, BTSPAT, L501.5200, L500.4050 #### [facility] [address] [place] [place], [address] EPI,TRANSITION 0-5 SEEN Normal 0-5 [facility] Comment on above: Order Comment: DILIA CTOR TO SPECIFY Performed By: #### L 100.0500, BTSPAT, L501.5200, L500.4050 #### [facility] [address] [place], [address] WBC 0-5 SEEN Normal 0-5 [facility] Comment on above: Order Comment: DILIA CTOR TO SPECIFY Performed By: #### L 100.0500, BTSPAT, L501.5200, L500.4050 #### [facility] [address] [place] [place], [address] BACTERIA 0 SEEN Normal None Seen [facility] Comment on above: Order Comment: DILIA CTOR TO SPECIFY Performed By: #### L 100.0500, BTSPAT, L501.5200, L500.4050 #### [facility] [address] [place] [place], [address] Mucus Ql (Urine sed) 0 SEEN Normal [facility] Comment on above: Order Comment: DILIA CTOR TO SPECIFY Performed By: #### L 100.0500, BTSPAT, L501.5200, L500.4050 #### [facility] [address] [place], [address] RBC 0 SEEN Normal 0-5 [facility] Comment on above: Order Comment: COLLE CTOR TO SPECIFY Performed By: #### L 100.0500, BTSPAT, L501.5200, L500.4050 #### [facility] [address] [place] [place], [address] Urine clarityOrdered By: Romina Stone on 01-17-2025 Clarity (U) Clear Clear [facility] Urine color determinationOrd ered By: Jostin Stone on 01-17-2025 Color (U) Straw Yellow [facility] Urine glucose detectionOrder ed By: Jostin Stone on 01-17-2025 Glucose Ql (U) 1000 mg/dl High Normal [facility] Urine leukocyte esterase det ection by dipstickOrdered By: Jostin Stone on 01-17-2025 Leukocyte esterase Test strip Ql (U) Negative Negative [facility] Urine pHOrdered By: Jostin cobos on 01-17-2025 pH (U) 7.0 [pH] 5.0 - 8.0 [facility] Urine sediment bacteria coun t by microscopy (number/high power field)Ordered By: Jostin Stone on 01-17-2025 Bacteria LM.HPF (Urine sed) [#/Area] 0 /[HPF] None Seen [facility] Urine specific gravity measu rementOrdered By: Jostin Stone on 01-17-2025 Specific gravity (U) [Rel density] 1.010 1.002-1.030 [facility] Urine urobilinogen measureme ntOrdered By: Jostin Stone on 01-17-2025 Urobilinogen Ql (U) Normal mg/dl Normal [facility] White blood cell (WBC) count Ordered By: Jostin Stone on 01-17-2025 WBC (Bld) [#/Vol] 13.0 10*3/uL High 4.4-11.0 [facility] White blood cell countOrdere d By: Jostin Stone on 01-17-2025 White blood cell count 0-5 SEEN /hpf 0-5 [facility] CNOVon 12-20-2024 CNOV Office Visit (FAMPWS ) -------- ANA HERNANDEZ ([id number]) 1980 F Date Time Provider Department 12/20/24 9:00 AM [facility] During your visit today, we recorded the following information about you: Temperature Pulse Blood pressure Weight 97 degrees 72/minute 128/70 89.8 kg Myranda [place] APRN.BIOINFORMATICS COMPUTER SCIENTIST 12/20/2024 9:40 AM Signed This is a 44 year old female who presents today with: Patient presents with: Depression: 4 week follow up Anxiety HISTORY OF PRESENT ILLNESS: Ana Hernandez is a 44 year old female. Patient presents with: Depression: 4 week follow up Anxiety Feeling some better but not back to normal. Hydroxyzine 10 mg 3 x day for anxiety Uses 3 times a day- not make her severely sleepy but does a little. Eating ok. Sleeping- poorly- up a lot at night. Combination of pain, anxiety. Jardiance helping with frequent urination. No suicidal thoughts. Not yet scheduled with counseling center, due to cost. Seeing psychiatry DM: Reports overall feeling well. Medication side effects: No. Home sugar checks: Not often Hypoglycemic spells: No. Watching diet: Not lately. Unexpected weight loss: No. Polyuria, polydipsia: No. Vision Changes: Yes. Seeing eye doctor. Foot lesions or numbness or pain: No. PAST MEDICAL HISTORY: PAST MEDICAL HISTORY Diagnosis Date ABN GLUCOSE-ANTEPARTUM 05/23/2006 ASTHMA UNSPECIFIED 05/23/2006 Calculus of ureter 05/23/2006 Callus of foot Callus of foot COMMON MIGRAINE W/O MENTN INTRACT 05/23/2006 DEPRESSIVE DISORDER NEC 08/20/200606/09 -Stable, no meds Family history of diabetes mellitus 05/23/2006 Mother, Father, Maternal Grandparents FAMILY HX DIABETES MELLITUS 05/23/2006 Mother, Father, Maternal Grandparents Fatty liver 06/05/2009 CT Scan 01/06, showed diffuse fatty liver. LFTs elevated in past, but 06/09 - normal GOITER NOS 09/28/2006 TSH normal Lumbago 05/23/2006 Mild intermittent asthma without complication (HCC) 05/23/2006 Since age 11. No medication. Last attack > 10 years OBESITY NOS 05/23/2006 Peripheral autonomic neuropathy due to diabetes mellitus (HCC) PMH - PAST MEDICAL HISTORY OF kidney stones Polycystic ovaries 05/23/2006 Polycystic ovaries 05/23/2006 Snoring Sprain of lumbar region 08/04/2014 Tobacco use disorder 06/05/2009 Type II or unspecified type diabetes mellitus without mention of complication, not stated as uncontrolled 06/05/2009 Unspecified asthma(493.90) PAST SURGICAL HISTORY Procedure Laterality Date DELIVERY ONLY , low cervical COLONOSCOPY 08/28/2018 hemorrhoid banding L'SCOPE DX W/WO BRUSHINGS/WASHINGS 04/15/2024 LAPAROSCOPY SURG CHOLECYSTECTOMY Cholecystectomy, lap MYRINGOTOMY ASPIRAND/EUSTACHIAN TUBE NFLTJ ANES Myringotomy/tubes PAST SURGICAL HISTORY OF stents in ureter for kidney stones PAST SURGICAL HISTORY OF 08/04/2014 lumbar pain injections. TONSILLECTOMY PRIMARY/SECONDARY Tonsillectomy ALLERGIES Avelox [Moxifloxacin Hcl], Doxy [Doxycycline], Penicillins, and Prozac [Fluoxetine Hcl] MEDICATIONS Current Outpatient Medications Medication Sig hydrOXYzine HCl (ATARAX) 10 mg tablet Take 10 mg by mouth three times a day as needed for anxiety. empagliflozin (JARDIANCE) 25 mg tablet Take 1 tablet by mouth daily with breakfast. magnesium oxide (MAG-OX) 400 mg (241.3 mg magnesium) tablet Take 1 tablet by mouth three times a day. simvastatin (ZOCOR) 40 mg tablet Take 1 tablet by mouth daily at bedtime. busPIRone HCl 30 mg tablet Take 1 tablet by mouth two times a day. venlafaxine ER (EFFEXOR XR) 75 mg 24 hr capsule Take 1 capsule by mouth once daily. amitriptyline (ELAVIL) 100 mg tablet Take 1 tablet by mouth daily at bedtime. propranolol (INDERAL) 40 mg tablet Take 1 tablet by mouth two times a day. topiramate (TOPAMAX) 50 mg tablet Take 1 tablet by mouth two times a day. polyethylene glycol 3350 17 gram/dose powder Take 17 g by mouth once daily. metFORMIN (GLUCOPHAGE) 1,000 mg tablet Take 1 tablet by mouth two times a day with meals. norethindrone (AYGESTIN) 5 mg tablet Take 1 tablet by mouth once daily. ZINC ORAL Take 50 mg by mouth once daily. cholecalciferol, vitamin D3, (VITAMIN D3 ORAL) Take 1 tablet by mouth once daily. blood-glucose meter,mobile dev (iPeen BLOOD GLUCOSE MONITOR) lyn albuterol HFA (PROAIR HFA) 90 mcg/actuation inhaler Inhale 2 Puffs as instructed every 4 hours as needed. omega-3 fatty acids (FISH OIL CONCENTRATE) 1,000 mg cap Take 1,000 mg by mouth once daily. HYDROcodone-acetaminophe n (NORCO) 5-325 mg per tablet Take 5-325 tablets by mouth twice daily as needed. multivit-minerals/ferrou s fum (MULTI VITAMIN ORAL) Take 1 tablet by mouth once daily. TIZANIDINE HCL (ZANAFLEX ORAL) Take by mouth two times a day as needed. No current facility-administered medications for this visit. FAMILY HISTORY Problem Rela (more content not included)... Normal [facility] CBC W Auto Differential pane l (Bld)on 11-18-2024 Basophils (Bld) [#/Vol] 0.10 10*3/uL Normal <0.11 [facility] Comment on above: Order Comment: Speci men Type: BLOOD SPECIMEN Ordering Facility: [facility] Address: [address] [place] [address] Performed By: #### 5 7021-8 #### [facility] CLIA [id number] [address] [place] [address] [place] Basophils/100 WBC (Bld) 0.9 % Normal [facility] Comment on above: Order Comment: Speci men Type: BLOOD SPECIMEN Ordering Facility: [facility] Address: [address] [place] [address] Performed By: #### 5 7021-8 #### [facility] CLIA [id number] [address] [place] [address] [place] Differential cell count method Nom (Bld) Manual Normal [facility] Comment on above: Order Comment: Speci men Type: BLOOD SPECIMEN Ordering Facility: [facility] Address: [address] [place] [address] Performed By: #### 5 7021-8 #### [facility] CLIA [id number] [address] [place] [address] [place] Eosinophils (Bld) [#/Vol] 0.30 10*3/uL Normal <0.46 [facility] Comment on above: Order Comment: Speci men Type: BLOOD SPECIMEN Ordering Facility: [facility] Address: [address] [place] [address] Performed By: #### 5 7021-8 #### [facility] CLIA [id number] [address] [place] [address] [place] Eosinophils/100 WBC (Bld) 2.6 % Normal [facility] Comment on above: Order Comment: Speci men Type: BLOOD SPECIMEN Ordering Facility: [facility] Address: [address] [place] [address] Performed By: #### 5 7021-8 #### [facility] CLIA [id number] [address] [place] [address] [place] Erythrocyte distribution width (RBC) [Ratio] 12.7 % Normal 11.5-15.0 [facility] Comment on above: Order Comment: Speci men Type: BLOOD SPECIMEN Ordering Facility: [facility] Address: [address] [place] [address] Performed By: #### 5 7021-8 #### [facility] CLIA [id number] [address] [place] [address] [place] Hematocrit (Bld) [Volume fraction] 40.3 % Normal 36.0-46.0 [facility] Comment on above: Order Comment: Speci men Type: BLOOD SPECIMEN Ordering Facility: [facility] Address: [address] [place] [address] Performed By: #### 5 7021-8 #### [facility] CLIA [id number] [address] [place] [address] [place] Hemoglobin (Bld) [Mass/Vol] 13.1 g/dL Normal 11.5-15.5 [facility] Comment on above: Order Comment: Speci men Type: BLOOD SPECIMEN Ordering Facility: [facility] Address: [address] [place] [address] Performed By: #### 5 7021-8 #### [facility] CLIA [id number] [address] [place] [address] [place] Lymphocytes (Bld) [#/Vol] 3.64 10*3/uL Normal 1.00-4.00 [facility] Comment on above: Order Comment: Speci men Type: BLOOD SPECIMEN Ordering Facility: [facility] Address: [address] [place] [address] Performed By: #### 5 7021-8 #### [facility] CLIA [id number] [address] [place] [address] [place] Lymphocytes/100 WBC (Bld) 31.9 % Normal [facility] Comment on above: Order Comment: Speci men Type: BLOOD SPECIMEN Ordering Facility: [facility] Address: [address] [place] [address] Performed By: #### 5 7021-8 #### [facility] CLIA [id number] [address] [place] [address] [place] MCH (RBC) [Entitic mass] 30.8 pg Normal 26.0-34.0 [facility] Comment on above: Order Comment: Speci men Type: BLOOD SPECIMEN Ordering Facility: [facility] Address: [address] [place] [address] Performed By: #### 5 7021-8 #### [facility] CLIA [id number] [address] [place] [address] [place] MCHC (RBC) [Mass/Vol] 32.5 g/dL Normal 30.5-36.0 [facility] Comment on above: Order Comment: Speci men Type: BLOOD SPECIMEN Ordering Facility: [facility] Address: [address] [place] [address] Performed By: #### 5 7021-8 #### [facility] CLIA [id number] [address] [place] [address] [place] MCV (RBC) [Entitic vol] 94.8 fL Normal 80.0-100.0 [facility] Comment on above: Order Comment: Speci men Type: BLOOD SPECIMEN Ordering Facility: [facility] Address: [address] [place] [address] Performed By: #### 5 7021-8 #### [facility] CLIA [id number] [address] [place] [address] [place] Metamyelocytes/100 WBC (Bld) 0.9 % Normal [facility] Comment on above: Order Comment: Speci men Type: BLOOD SPECIMEN Ordering Facility: [facility] Address: [address] [place] [address] Performed By: #### 5 7021-8 #### [facility] CLIA [id number] [address] [place] [address] [place] Monocytes (Bld) [#/Vol] 0.19 10*3/uL Normal <0.87 [facility] Comment on above: Order Comment: Speci men Type: BLOOD SPECIMEN Ordering Facility: [facility] Address: [address] [place] [address] Performed By: #### 5 7021-8 #### [facility] CLIA [id number] [address] [place] [address] [place] Monocytes/100 WBC (Bld) 1.7 % Normal [facility] Comment on above: Order Comment: Speci men Type: BLOOD SPECIMEN Ordering Facility: [facility] Address: [address] [place] [address] Performed By: #### 5 7021-8 #### [facility] CLIA [id number] [address] [place] [address] [place] Neutrophils (Bld) [#/Vol] 7.07 10*3/uL Normal 1.45-7.50 [facility] Comment on above: Order Comment: Speci men Type: BLOOD SPECIMEN Ordering Facility: [facility] Address: [address] [place] [address] Performed By: #### 5 7021-8 #### [facility] CLIA [id number] [address] [place] [address] [place] Neutrophils/100 WBC (Bld) 62.0 % Normal [facility] Comment on above: Order Comment: Speci men Type: BLOOD SPECIMEN Ordering Facility: [facility] Address: [address] [place] [address] Performed By: #### 5 7021-8 #### [facility] CLIA [id number] [address] [place] [address] [place] Nucleated RBC (Bld) [#/Vol] 10*3/uL Normal <0.01 [facility] Comment on above: Order Comment: Speci men Type: BLOOD SPECIMEN Ordering Facility: [facility] Address: [address] [place] [address] Performed By: #### 5 7021-8 #### [facility] CLIA [id number] [address] [place] [address] [place] Nucleated RBC/100 WBC (Bld) [Ratio] 0.0 /100 WBC Normal [facility] Comment on above: Order Comment: Speci men Type: BLOOD SPECIMEN Ordering Facility: [facility] Address: [address] [place] [address] Performed By: #### 5 7021-8 #### [facility] CLIA [id number] [address] [place] [id number] [place] Platelet mean volume (Bld) [Entitic vol] 10.6 fL Normal 9.0-12.7 [facility] Comment on above: Order Comment: Speci men Type: BLOOD SPECIMEN Ordering Facility: [facility] Address: [address] [place] [address] Performed By: #### 5 7021-8 #### [facility] CLIA [id number] [address] [place] [address] [place] Platelets (Bld) [#/Vol] 306 10*3/uL Normal 150-400 [facility] Comment on above: Order Comment: Speci men Type: BLOOD SPECIMEN Ordering Facility: [facility] Address: [address] [place] [address] Performed By: #### 5 7021-8 #### [facility] CLIA [id number] [address] [place] [address] [place] Platelets Estimate (Bld) [#/Vol] Adequate Normal [facility] Comment on above: Order Comment: Speci men Type: BLOOD SPECIMEN Ordering Facility: [facility] Address: [address] [place] [address] Performed By: #### 5 7021-8 #### [facility] CLIA [id number] [address] [place] [address] [place] Polychromasia LM Ql (Bld) Slight Normal [facility] Comment on above: Order Comment: Speci men Type: BLOOD SPECIMEN Ordering Facility: [facility] Address: [address] [place], [place] [address] Performed By: #### 5 7021-8 #### [facility] CLIA [id number] [address] [place] [address] [place] RBC (Bld) [#/Vol] 4.25 10*6/uL Normal 3.90-5.20 [facility] Comment on above: Order Comment: Speci men Type: BLOOD SPECIMEN Ordering Facility: [facility] Address: [address] [place] [address] Performed By: #### 5 7021-8 #### [facility] CLIA [id number] [address] [place] [address] [place] RED CELL MORPH Reviewed: unremarkable Normal [facility] Comment on above: Order Comment: Speci men Type: BLOOD SPECIMEN Ordering Facility: [facility] Address: [address] [place] [address] Performed By: #### 5 7021-8 #### [facility] CLIA [id number] [address] [place] [address] [place] WBC (Bld) [#/Vol] 11.40 10*3/uL High 3.70-11.00 [facility] Comment on above: Order Comment: Speci men Type: BLOOD SPECIMEN Ordering Facility: [facility] Address: [address] [place] [address] Performed By: #### 5 7021-8 #### [facility] CLIA [id number] [address] [place] [address] [place] WBC Left Shift Ql (Bld) Present Normal [facility] Comment on above: Order Comment: Speci men Type: BLOOD SPECIMEN Ordering Facility: [facility] Address: [address] [place] [address] Performed By: #### 5 7021-8 #### [facility] CLIA [id number] [address] [place] [address] [place] CNOVon 11-18-2024 CNOV Office Visit (FAMPWS ) -------- ANA HERNANDEZ ([id number]) 1980 F Date Time Provider Department 11/18/24 10:00 AM MYRANDA [place] During your visit today, we recorded the following information about you: Temperature Pulse Blood pressure Weight 97.5 degrees 99/minute 136/72 90.3 kg Myranda [place] APRN.BIOINFORMATICS COMPUTER SCIENTIST 11/18/2024 10:18 AM Signed This is a 44 year old female who presents today with: Patient presents with: Dizziness Palpitations HISTORY OF PRESENT ILLNESS: Ana Hernandez is a 44 year old female. Patient presents with: Dizziness Palpitations Feels like she is having a panic attack but symptoms won't go away. Nothing precipitated it. Ongoing for 1 week. The last 2 days have been worse. Had headache over weekend. Lasted 2 days. Took her medicine and slept all weekend. No nausea or vomiting. Heart racing. Impending doom- like something is going to happen No SOB Has been taking propranolol. No swelling in legs No chest pain or pressure No change in stress- nothing new REVIEW OF SYSTEMS GENERAL: No weight loss- luxates, + malaise, no fevers/chills HEENT: + migraine headaches NECK: Negative for lumps, goiter, pain and significant neck swelling RESPIRATORY: Negative for cough, hemoptysis, wheezing, dyspnea or shortness of breath CARDIOVASCULAR: Negative for chest pain, leg swelling, or orthopnea, + palpitations GI: No nausea, vomiting MOOD: + depression, + anxiety, no suicidal ideation. Abrasion on right lower ext.- scabbed over- red in perimeter- no drainage PAST MEDICAL HISTORY: PAST MEDICAL HISTORY Diagnosis Date ABN GLUCOSE-ANTEPARTUM 05/23/2006 ASTHMA UNSPECIFIED 05/23/2006 Calculus of ureter 05/23/2006 Callus of foot Callus of foot COMMON MIGRAINE W/O MENTN INTRACT 05/23/2006 DEPRESSIVE DISORDER NEC 08/20/200606/09 -Stable, no meds Family history of diabetes mellitus 05/23/2006 Mother, Father, Maternal Grandparents FAMILY HX DIABETES MELLITUS 05/23/2006 Mother, Father, Maternal Grandparents Fatty liver 06/05/2009 CT Scan 01/06, showed diffuse fatty liver. LFTs elevated in past, but 06/09 - normal GOITER NOS 09/28/2006 TSH normal Lumbago 05/23/2006 Mild intermittent asthma without complication 05/23/2006 Since age 11. No medication. Last attack > 10 years OBESITY NOS 05/23/2006 Peripheral autonomic neuropathy due to diabetes mellitus (HCC) PMH - PAST MEDICAL HISTORY OF kidney stones Polycystic ovaries 05/23/2006 Polycystic ovaries 05/23/2006 Snoring Sprain of lumbar region 08/04/2014 Tobacco use disorder 06/05/2009 Type II or unspecified type diabetes mellitus without mention of complication, not stated as uncontrolled 06/05/2009 Unspecified asthma(493.90) PAST SURGICAL HISTORY Procedure Laterality Date DELIVERY ONLY , low cervical COLONOSCOPY 08/28/2018 hemorrhoid banding L'SCOPE DX W/WO BRUSHINGS/WASHINGS 04/15/2024 LAPAROSCOPY SURG CHOLECYSTECTOMY Cholecystectomy, lap MYRINGOTOMY ASPIRAND/EUSTACHIAN TUBE NFLTJ ANES Myringotomy/tubes PAST SURGICAL HISTORY OF stents in ureter for kidney stones PAST SURGICAL HISTORY OF 08/04/2014 lumbar pain injections. TONSILLECTOMY PRIMARY/SECONDARY Tonsillectomy ALLERGIES Avelox [Moxifloxacin Hcl], Doxy [Doxycycline], Penicillins, and Prozac [Fluoxetine Hcl] MEDICATIONS Current Outpatient Medications Medication Sig amitriptyline (ELAVIL) 50 mg tablet Take 1-2 tablets by mouth daily at bedtime. propranolol (INDERAL) 40 mg tablet Take 0.5 tablets by mouth two times a day. topiramate (TOPAMAX) 50 mg tablet Take 1 tablet by mouth two times a day. polyethylene glycol 3350 17 gram/dose powder Take 17 g by mouth once daily. magnesium oxide (MAG-OX) 400 mg (241.3 mg magnesium) tablet Take 1 tablet by mouth two times a day. metFORMIN (GLUCOPHAGE) 1,000 mg tablet Take 1 tablet by mouth two times a day with meals. venlafaxine ER (EFFEXOR XR) 37.5 mg 24 hr capsule Take 1 capsule by mouth once daily. ZINC ORAL Take 50 mg by mouth once daily. cholecalciferol, vitamin D3, (VITAMIN D3 ORAL) Take 1 tablet by mouth once daily. albuterol HFA (PROAIR HFA) 90 mcg/actuation inhaler Inhale 2 Puffs as instructed every 4 hours as needed. omega-3 fatty acids (FISH OIL CONCENTRATE) 1,000 mg cap Take 1,000 mg by mouth once daily. HYDROcodone-acetaminophe n (NORCO) 5-325 mg per tablet Take 5-325 tablets by mouth twice daily as needed. multivit-minerals/ferrou s fum (MULTI VITAMIN ORAL) Take 1 tablet by mouth once daily. TIZANIDINE HCL (ZANAFLEX ORAL) Take by mouth two times a day as needed. simvastatin (ZOCOR) 40 mg tablet Take 1 tablet by mouth daily at bedtime. busPIRone HCl 30 mg tablet Take 1 tablet by mouth two times a day. norethindrone (AYGESTIN) 5 mg tablet Take 1 tablet by mouth once daily. (Patient not taking: No sig reported) blood-glucose meter,mobile dev (D (more content not included)... Normal [facility] Comprehensive metabolic 2000 panelon 11-18-2024 Albumin [Mass/Vol] 4.3 g/dL Normal 3.9-4.9 [facility] Comment on above: Order Comment: Speci men Type: BLOOD SPECIMEN Ordering Facility: [facility] Address: [address] [place] [address] Performed By: #### 2 4323-8, 91315-4, LIPNF, 3016-3 #### [facility] CLIA [id number] [address] [place] [address] [place] ALP [Catalytic activity/Vol] 90 U/L Normal 34-123 [facility] Comment on above: Order Comment: Speci men Type: BLOOD SPECIMEN Ordering Facility: [facility] Address: [address] [place] [address] Performed By: #### 2 4323-8, 23044-0, LIPNF, 3016-3 #### [facility] CLIA [id number] [address] [place] [address] [place] ALT [Catalytic activity/Vol] 59 U/L High 7-38 [facility] Comment on above: Order Comment: Speci men Type: BLOOD SPECIMEN Ordering Facility: [facility] Address: [address] [place] [address] Performed By: #### 2 4323-8, 89078-3, LIPNF, 3016-3 #### [facility] CLIA [id number] [address] [place] [address] [place] Anion gap [Moles/Vol] 13 mmol/L Normal 8-15 [facility] Comment on above: Order Comment: Speci men Type: BLOOD SPECIMEN Ordering Facility: [facility] Address: [address] [place] [address] Performed By: #### 2 4323-8, , LIPNF, 3016-3 #### [facility] CLIA [id number] [address] [place] [address] [place] AST [Catalytic activity/Vol] 43 U/L High 13-35 [facility] Comment on above: Order Comment: Speci men Type: BLOOD SPECIMEN Ordering Facility: [facility] Address: [address] [place] [address] Performed By: #### 2 4323-8, , LIPNF, 3016-3 #### [facility] CLIA [id number] [address] [place] [address] [place] Bilirubin [Mass/Vol] 0.4 mg/dL Normal 0.2-1.3 [facility] Comment on above: Order Comment: Speci men Type: BLOOD SPECIMEN Ordering Facility: [facility] Address: [address] [place] [address] Performed By: #### 2 4323-8, , LIPNF, 3016-3 #### [facility] CLIA [id number] [address] [place], [place] [address] [place] Calcium [Mass/Vol] 9.8 mg/dL Normal 8.5-10.2 [facility] Comment on above: Order Comment: Speci men Type: BLOOD SPECIMEN Ordering Facility: [facility] Address: [address] [place] [address] Performed By: #### 2 4323-8, 56835-7, LIPNF, 3016-3 #### [facility] CLIA [id number] [address] [place], [place] [address] [place] Chloride [Moles/Vol] 104 mmol/L Normal 98-107 [facility] Comment on above: Order Comment: Speci men Type: BLOOD SPECIMEN Ordering Facility: [facility] Address: [address] [place] [address] Performed By: #### 2 4323-8, 23324-6, LIPNF, 3016-3 #### [facility] CLIA [id number] [address] [place], [place] [address] [place] CO2 [Moles/Vol] 24 mmol/L Normal 22-30 [facility] Comment on above: Order Comment: Speci men Type: BLOOD SPECIMEN Ordering Facility: [facility] Address: [address] [place] [address] Performed By: #### 2 4323-8, 34579-3, LIPNF, 3016-3 #### [facility] CLIA [id number] [address] [place] [address] [place] Creatinine [Mass/Vol] 0.90 mg/dL Normal 0.58-0.96 [facility] Comment on above: Order Comment: Speci men Type: BLOOD SPECIMEN Ordering Facility: [facility] Address: [address] [place] [address] Performed By: #### 2 4323-8, 73272-5, LIPNF, 3016-3 #### [facility] CLIA [id number] [address] [place], [place] [address] [place] Creatinine and Glomerular filtration rate.predicted panel (S/P/Bld) 82 mL/min/1.73m??? Normal >=60 [facility] Comment on above: Order Comment: Speci men Type: BLOOD SPECIMEN Ordering Facility: [facility] Address: [address] [place], [place] [address] Result Comment: Gilda mated Glomerular Filtration Rate (eGFR) is calculated using the 2020 CKD-EPI creatinine equation. This equation utilizes serum creatinine, sex, and age as parameters. The creatinine assay has traceable calibration to isotope dilution-mass spectrometry. Refer to KDIGO guidelines for clinical interpretation. In patients with unstable renal function, e.g. those with acute kidney injury, the eGFR may not accurately reflect actual GFR. Performed By: #### 2 4323-8, 36377-5, HEATHER, 6-3 #### [facility] CLIA [id number] [address] [place] [address] [place] Glucose [Mass/Vol] 116 mg/dL High 74-99 [facility] Comment on above: Order Comment: Mary cabrera Type: BLOOD SPECIMEN Ordering Facility: [facility] Address: [address] [place] [address] Result Comment: The [place] Diabetes Association (ADA) provides guidance for cutoff values for fasting glucose and random glucose. The ADA defines fasting as no caloric intake for at least 8 hours. Fasting plasma glucose results between 100 to 125 mg/dL indicate increased risk for diabetes (prediabetes). Fasting plasma glucose results greater than or equal to 126 mg/dL meet the criteria for diagnosis of diabetes. In the absence of unequivocal hyperglycemia, results should be confirmed by repeat testing. In a patient with classic symptoms of hyperglycemia or hyperglycemic crisis, random plasma glucose results greater than or equal to 200 mg/dL meet the criteria for diagnosis of diabetes. Reference: Standards of Medical Care in Diabetes 2016, [place] Diabetes Association. Diabetes Care. 2016.39(Suppl 1). Performed By: #### 2 3-8, , HEATHER, 6-3 #### [facility] CLIA [id number] [address] [place], [place] [address] [place] Potassium [Moles/Vol] 3.9 mmol/L Normal 3.7-5.1 [facility] Comment on above: Order Comment: Mary cabrera Type: BLOOD SPECIMEN Ordering Facility: [facility] Address: [address] [place] [address] Performed By: #### 2 3-8, 14015-0, LIPCLOVIS, 6-3 #### [facility] CLIA [id number] [address] [place] [address] [place] Protein [Mass/Vol] 8.0 g/dL Normal 6.3-8.0 [facility] Comment on above: Order Comment: Speci men Type: BLOOD SPECIMEN Ordering Facility: [facility] Address: [address] [place] [address] Performed By: #### 2 4323-8, 04718-0, LIPNF, 6-3 #### [facility] [place] [id number] [address] [place] [address] [place] Sodium [Moles/Vol] 141 mmol/L Normal 136-144 [facility] Comment on above: Order Comment: Speci men Type: BLOOD SPECIMEN Ordering Facility: [facility] Address: [address] [place] [address] Performed By: #### 2 4323-8, 74236-2, LIPNF, 6-3 #### [facility] IA [id number] [address] [place] [address] [place] Urea nitrogen [Mass/Vol] 10 mg/dL Normal 7-21 [facility] Comment on above: Order Comment: Speci men Type: BLOOD SPECIMEN Ordering Facility: [facility] Address: [address] [place] [address] Performed By: #### 2 4323-8, 89575-2, LIPNF, 6-3 #### [facility] IA [id number] [address] [place], [place] [address] [place] ECG COMPLETEon 11-18-2024 ECG COMPLETE Ventricular Rate : 8 8 BPM Atrial Rate : 88 BPM P-R Interval : 168 ms QRS Duration : 76 ms Q-T Interval : 368 ms QTC Calculation(Bazett) : 445 ms Calculated P [place] : 40 degrees Calculated R [place] : 7 degrees Calculated T [place] : 46 degrees NORMAL SINUS RHYTHM NORMAL ECG Confirmed by MD LIZ, QACLAIRE ([id number]) on 11/30/2024 12:09:32 PM NAME : ANA HERNANDEZ PID : [id number] : 1980 Gender : Female Race : ORD : [id number] Procedure Date : Nov 18 2024 09:56:06 Edit Date : Nov 30 2024 12:09:36 Diagnosis: NORMAL SINUS RHYTHM NORMAL ECG Confirmed by MD HILL QARAB ([id number]) on 11/30/2024 12:09:32 PM Test Reason : R00.2 Palpitations Location : 185 : [facility] Overread By : MD HILL QARAB Edited By : MD HILL QARAB Referred By : , Acquired by : [id number], Normal [facility] HbA1c (Bld)on 11-18-2024 Average glucose Estimated from glycated hemoglobin (Bld) [Mass/Vol] 183 mg/dL Normal [facility] Comment on above: Order Comment: Mary cabrera Type: BLOOD SPECIMENOrdering Facility: [facility] Address: [address] [place] [address] Result Comment: eAG: (Estimated average glucose) is a calculated value from HgbA1c and is telemarketing representative of the average blood glucose level in the last 2-3 month period. Performed By: #### 5 5454-3 ####[facility] [id number] [place] [address] [place] HbA1c (Bld) [Mass fraction] 8.0 % High 4.3-5.6 [facility] Comment on above: Order Comment: Mary cabrera Type: BLOOD SPECIMENOrdering Facility: [facility] Address: [address] [place] [address] Result Comment: [place] Diabetes Association guidelines indicate that patients with HgbA1c in the range 5.7-6.4% are at increased risk for development of diabetes, and intervention by lifestyle modification may be beneficial. HgbA1c greater or equal to 6.5% is considered diagnostic of diabetes. Performed By: #### 5 5454-3 ####[facility] [id number] [place] [id number] [place] LIPID PANEL, NONFASTINGon Cholesterol [Mass/Vol] 187 mg/dL Normal <200 [facility] Comment on above: Order Comment: Speci men Type: BLOOD SPECIMEN Ordering Facility: [facility] Address: [address] [place] [address] Result Comment: <200 mg/dL, Desirable 200-239 mg/dL, Borderline high >239 mg/dL, High Performed By: #### 2 4323-8, 84333-2, LIPNF, 3016-3 #### [facility] CLIA [id number] [address] [place] [address] [place] HDL CHOLESTEROL, NF 52 mg/dL Normal >39 [facility] Comment on above: Order Comment: Speci men Type: BLOOD SPECIMEN Ordering Facility: [facility] Address: [address] [place] [address] Result Comment: 40-5 9 mg/dL, Acceptable >59 mg/dL, High: Negative risk factor for coronary heart disease <40 mg/dL, Low: Positive risk factor for coronary heart disease Performed By: #### 2 4323-8, 19842-6, LIPNF, 3016-3 #### [facility] CLIA [id number] [address] [place] [address] [place] LDL CHOLESTEROL, NF 105 mg/dL High <100 [facility] Comment on above: Order Comment: Speci deborah Type: BLOOD SPECIMEN Ordering Facility: [facility] Address: [address] [place] [address] Result Comment: <100 mg/dL, Optimal 100-129 mg/dL, Near optimal/above optimal 130-159 mg/dL, Borderline high 160-189 mg/dL, High >189 mg/dL, Very high Secondary prevention optimal LDL Cholesterol levels are recommended to be < 70 mg/dL Performed By: #### 2 4323-8, 09409-0, LIPNF, 3016-3 #### [facility] CLIA [id number] [address] [place] [id number] [place] LDL/HDL RATIO, NF 2.02 mg/dL Normal <2.54 [facility] Comment on above: Order Comment: Mary cabrera Type: BLOOD SPECIMEN Ordering Facility: [facility] Address: [address] [place] [address] Result Comment: Gary mckinney: 1. National Cholesterol Education Program ATP III Guideline At-A-Glance Quick Desk Reference: National Heart, Lung, and Blood [place]. National Institutes of Health. 2001: NIH Publication No. 01-3305. 2. An International Atherosclerosis Society position paper: global recommendations for the management of dyslipidemia: executive summary, Atherosclerosis. 2014: 232(2):410-413. Performed By: #### 2 4323-8, 53523-2, LIPNF, 3016-3 #### [facility] CLIA [id number] [address] [place] [address] [place] NON HDL CHOL, NF 135 mg/dL High <130 [facility] Comment on above: Order Comment: Mary cabrera Type: BLOOD SPECIMEN Ordering Facility: [facility] Address: [address] [place] [address] Result Comment: <130 mg/dL, Optimal 130-159 mg/dL, Near optimal/above optimal 160-189 mg/dL, Borderline high 190-219 mg/dL, High >219 mg/dL, Very high Secondary prevention optimal non HDL Cholesterol levels are recommended to be <100 mg/dL Performed By: #### 2 4323-8, 94430-5, LIPNF, 3016-3 #### [facility] CLIA [id number] [address] [place] [address] [place] T CHOL/HDL RATIO NF 3.60 mg/dL Normal <5.10 [facility] Comment on above: Order Comment: Mary deborah Type: BLOOD SPECIMEN Ordering Facility: [facility] Address: [address] [place] [address] Performed By: #### 2 4323-8, 31234-3, LIPNF, 3016-3 #### [facility] CLIA [id number] [address] [place] [address] [place] TRIGLYCERIDES, NF 148 mg/dL Normal <150 [facility] Comment on above: Order Comment: Speci men Type: BLOOD SPECIMEN Ordering Facility: [facility] Address: [address] [place] [address] Result Comment: <150 mg/dL, Normal 150-199 mg/dL, Borderline high 200-499 mg/dL, High >499 mg/dL, Very high Performed By: #### 2 4323-8, 29612-3, LIPCLOVIS, 3016-3 #### [facility] CLIA [id number] [address] [place] [address] [place] VLDL CHOLESTEROL, NF 30 mg/dL High <30 [facility] Comment on above: Order Comment: Speci men Type: BLOOD SPECIMEN Ordering Facility: [facility] Address: [address] [place] [address] Performed By: #### 2 4323-8, 64270-9, LIPCLOVIS, 3016-3 #### [facility] CLIA [id number] [address] [place] [address] [place] Magnesium SerPl-mCncon 11-18 Magnesium [Mass/Vol] 1.5 mg/dL Low 1.7-2.3 [facility] Comment on above: Order Comment: Speci men Type: BLOOD SPECIMEN Ordering Facility: [facility] Address: [address] [place] [address] Performed By: #### 2 4323-8, , LIPCLOVIS, 6-3 #### [facility] CLIA [id number] [address] [place] [address] [place] TSH SerPl-aCncon 11-18-2024 TSH Qn 1.710 m[IU]/L Normal 0.270-4.200 [facility] Comment on above: Order Comment: Speci men Type: BLOOD SPECIMEN Ordering Facility: [facility] Address: [address] [place] [address] Result Comment: If t he patient is , TSH reference range varies by gestational period: First Trimester (weeks 9-12): 0.180-2.990 mIU/L Second Trimester: 0.110-3.980 mIU/L Third Trimester: 0.480-4.710 mIU/L Smooth Tracy et al. A Practical Approach for the Verifications and Determination of Site- and Trimester-Specific Reference Intervals for Thyroid Function tests in . Thyroid, 2019:29:3:412-420. Melchor E, et al. 2017 Guidelines of the [place] Thyroid Association for the Diagnosis and Management of Thyroid Disease during and the . Thyroid, 2017:27:3:315-389. Performed By: #### 2 4323-8, 92330-8, LIPNF, 3016-3 #### [facility] CLIA [id number] [address] [place] [address] [place] Vit B12 SerPl-ncon 03-20-2 025 Cobalamin (Vitamin B12) [Mass/Vol] 688 pg/mL Normal 232-1245 [facility] Comment on above: Order Comment: Mary cabrera Type: BLOOD SPECIMENOrdering Facility: [facility] Address: [address] [place] [address] Performed By: #### 2 132-9 ####[facility] [id number] [address] [place] HFE (HEMOCHROMATOSIS)on 04-02 INTERPRETATION (HEMDNA) Normal [facility] Comment on above: Order Comment: Mary cabrera Type: BLOOD SPECIMEN Ordering Facility: [facility] Address: [address] [place] [address] Result Comment: HFE (Hemochromatosis) Laboratory Accession Number: [id number] Result: C282Y: WT H63D: WT S65C: WT Interpretation: No variant detected: The DNA sample is negative for the C282Y, H63D and S65C variants of the HFE gene. Variants at these loci are commonly associated with hereditary hemochromatosis (HH). Approximately 13% of clinically affected individuals may have this negative result, suggesting other etiologies for hereditary hemochromatosis. Methodology: Patient DNA was evaluated for three missense variants in the HFE gene (NM_000410.3) using multiplex polymerase chain reaction (PCR) followed by melting curve analysis. The variants interrogated are c.845G>A, p.Eny641Zut; g.[id number]; [id number] (legacy name C282Y), c.187C>G, p.Unc80Qym; g.19884975; [id number] (legacy name H63D) and c.193A>T, p.Mfv65Pqt; g.83730028; [id number] (legacy name S65C). The reference genome used was GRCh37/hg19. Limitations: DNA studies do not provide a definitive genetic risk in all individuals. This targeted test is designed to detect three specific variants (see methodology for details) in HFE (OMIM 849632). Uncommon variants or single nucleotide polymorphisms may affect binding of probes and thus result in false negative, false positive, or indeterminate results. This test does not detect other HFE variants. Disclaimer: This test was developed and its performance characteristics determined by [facility]'s [facility] [place] ([facility]). It has not been cleared or approved by the FDA. [facility] is regulated under CLIA as certified to perform high- complexity testing. This test is used for clinical purposes. It should not be regarded as investigational or for research. Testing and interpretation performed at [facility], [address] [place] [address]. CLIA Number: [id number] As reviewed by Niki Leon MD, PhD Performed By: #### 5 7021-8 #### [facility] CLIA [id number] [address] [place] [address] [place] CNPNon 04-25-2024 CNPN Telephone (HEMAWS) -------- ANA HERNANDEZ ([id number]) 1980 F Date Time Provider Department 04/25/24 JOSE TSAI HEMAWS During your visit today, we recorded the following information about you: Jose Tsai DO 04/25/2024 2:09 PM Signed Can let her know the repeat CBC was normal. Flow cytometry showed no evidence of chronic leukemia. Likely previous increases in white blood cell count secondary to fatty liver and history of PCO. Inflammatory markers elevated. Ferritin mildly elevated. Return for another blood test to rule out hereditary hemochromatosis. Jose Tsai DO Kimberlyerik Paul Key 04/25/2024 2:58 PM Signed I called and let Guan[place]ito know the below information and she stated understanding. I did schedule her for lab work to be done tomorrow 04/26/24 @ 8:30 am, she confirmed this date, time and location Paul Modi Pss Allergies As of Date: 04/25/2024 Noted Allergy Reaction AVELOX (MOXIFLOXACIN HCL) 08/10/2009 2 - Rash DOXY (DOXYCYCLINE) 06/09/2009 8 - GI Upset PENICILLINS 10/17/2005 14 - Other: See Comments Comments: Mother does not recall what the reaction was and was told that she cannot take it PROZAC (FLUOXETINE HCL) 05/08/2011 14 - Other: See Comments Comments: Mother had side effects from this Date Reviewed: 04/22/2024 Reviewed by: Sadaf Sorensen MA - Fully Assessed Reason for Visit: Results [95] Primary Visit Diagnosis:Elevated ferritin [R79.89] Order(s):HFE (HEMOCHROMATOSIS) [SQHEMDNA] Order #: [id number] FUTURE Prescriptions as of 04/25/2024 - metroNIDAZOLE (FLAGYL) 500 mg tablet Take 1 tablet by mouth two times a day for 7 days. - polyethylene glycol 3350 17 gram/dose powder Take 17 g by mouth once daily. - magnesium oxide (MAG-OX) 400 mg (241.3 mg magnesium) tablet Take 1 tablet by mouth two times a day. - metFORMIN (GLUCOPHAGE) 1,000 mg tablet Take 1 tablet by mouth two times a day with meals. - venlafaxine ER (EFFEXOR XR) 37.5 mg 24 hr capsule Take 1 capsule by mouth once daily. - norethindrone (AYGESTIN) 5 mg tablet Take 1 tablet by mouth once daily. - amitriptyline (ELAVIL) 50 mg tablet Take 1-2 tablets by mouth daily at bedtime. - busPIRone HCl 30 mg tablet Take 1 tablet by mouth two times a day. - simvastatin (ZOCOR) 40 mg tablet Take 1 tablet by mouth daily at bedtime. - topiramate (TOPAMAX) 50 mg tablet Take 1 tablet by mouth two times a day. - propranolol (INDERAL) 40 mg tablet Take 0.5 tablets by mouth two times a day. - ZINC ORAL Take 50 mg by mouth once daily. - cholecalciferol, vitamin D3, (VITAMIN D3 ORAL) Take 1 tablet by mouth once daily. - blood-glucose meter,mobile dev (iPeen BLOOD GLUCOSE MONITOR) lyn - albuterol HFA (PROAIR HFA) 90 mcg/actuation inhaler Inhale 2 Puffs as instructed every 4 hours as needed. - omega-3 fatty acids (FISH OIL CONCENTRATE) 1,000 mg cap Take 1,000 mg by mouth once daily. - HYDROcodone-acetaminophe n (NORCO) 5-325 mg per tablet Take 5-325 tablets by mouth twice daily as needed. - multivit-minerals/ferrou s fum (MULTI VITAMIN ORAL) Take 1 tablet by mouth once daily. - TIZANIDINE HCL (ZANAFLEX ORAL) Take by mouth twice daily. Problem List As Of Date 04/25/2024 Noted Resolved CHOLELITHIASIS NOS [K80.20] 10/17/2005 05/23/2006 Mild intermittent asthma without complication [*05/23/2006 03/30/2018 Common migraine [G43.009] 05/23/2006 Abnormal maternal glucose tolerance, antepartum*05/23/2006 03/30/2018 Family history of diabetes mellitus [Z83.3] 05/23/2006 03/30/2018 Polycystic ovaries [E28.2] 05/23/2006 Obesity due to excess calories [E66.09] 05/23/2006 Calculus of ureter [N20.1] 05/23/2006 03/30/2018 Lumbago [M54.50] 05/23/2006 Depressive disorder [F32.A] 08/20/2006 Goiter, euthyroid [E04.9] 09/28/2006 Fatty Liver [K76.0] 06/05/2009 Hyperlipidemia [E78.5] 06/05/2009 Diabetes mellitus type 2, controlled, without c*06/05/2009 Tobacco use disorder [F17.200] 06/05/2009 Porokeratosis [Q82.8] 02/12/2011 Cervicalgia [M54.2] 01/14/2013 Callus of foot [L84] 03/30/2018 Displacement of lumbar intervertebral disc with*08/04/2014 Sprain of lumbar region [S33.5XXA] 08/04/2014 03/30/2018 RLS (restless legs syndrome) [G25.81] 03/30/2018 Transition of care performed with sharing of cl*11/29/2018 08/23/2021 Hospital discharge follow-up [Z09] 08/22/2021 Menorrhagia with irregular cycle [N92.1] 12/16/2023 Dysmenorrhea [N94.6] 12/16/2023 Encounter Status:Closed by PAUL HUGHES on 04/25/24 [facility] CNPKiki 04-23-2024 CNPN Telephone (OBGYWM) -------- ANA HERNANDEZ ([id number]) 1980 F Date Time Provider Department 04/23/24 ZHENG LUNA OBBRUCE During your visit today, we recorded the following information about you: Zehng Luna MD 04/23/2024 12:36 PM Signed See result note Flagyl sent for +BV Allergies As of Date: 04/23/2024 Noted Allergy Reaction AVELOX (MOXIFLOXACIN HCL) 08/10/2009 2 - Rash DOXY (DOXYCYCLINE) 06/09/2009 8 - GI Upset PENICILLINS 10/17/2005 14 - Other: See Comments Comments: Mother does not recall what the reaction was and was told that she cannot take it PROZAC (FLUOXETINE HCL) 05/08/2011 14 - Other: See Comments Comments: Mother had side effects from this Date Reviewed: 04/22/2024 Reviewed by: Sadaf Sorensen MA - Fully Assessed Reason for Visit: Orders [681] Primary Visit Diagnosis:BV (bacterial vaginosis) [N76.0, B96.89] Order(s):metroNIDAZOLE (FLAGYL) 500 mg tabletTake 1 tablet by mouth two times a day for 7 days.Disp: 14 tabletRfl: 0 Prescriptions as of 04/23/2024 - metroNIDAZOLE (FLAGYL) 500 mg tablet Take 1 tablet by mouth two times a day for 7 days. - polyethylene glycol 3350 17 gram/dose powder Take 17 g by mouth once daily. - magnesium oxide (MAG-OX) 400 mg (241.3 mg magnesium) tablet Take 1 tablet by mouth two times a day. - metFORMIN (GLUCOPHAGE) 1,000 mg tablet Take 1 tablet by mouth two times a day with meals. - venlafaxine ER (EFFEXOR XR) 37.5 mg 24 hr capsule Take 1 capsule by mouth once daily. - norethindrone (AYGESTIN) 5 mg tablet Take 1 tablet by mouth once daily. - amitriptyline (ELAVIL) 50 mg tablet Take 1-2 tablets by mouth daily at bedtime. - busPIRone HCl 30 mg tablet Take 1 tablet by mouth two times a day. - simvastatin (ZOCOR) 40 mg tablet Take 1 tablet by mouth daily at bedtime. - topiramate (TOPAMAX) 50 mg tablet Take 1 tablet by mouth two times a day. - propranolol (INDERAL) 40 mg tablet Take 0.5 tablets by mouth two times a day. - ZINC ORAL Take 50 mg by mouth once daily. - cholecalciferol, vitamin D3, (VITAMIN D3 ORAL) Take 1 tablet by mouth once daily. - blood-glucose meter,mobile dev (HOLLY BLOOD GLUCOSE MONITOR) lyn - albuterol HFA (PROAIR HFA) 90 mcg/actuation inhaler Inhale 2 Puffs as instructed every 4 hours as needed. - omega-3 fatty acids (FISH OIL CONCENTRATE) 1,000 mg cap Take 1,000 mg by mouth once daily. - HYDROcodone-acetaminophe n (NORCO) 5-325 mg per tablet Take 5-325 tablets by mouth twice daily as needed. - multivit-minerals/ferrou s fum (MULTI VITAMIN ORAL) Take 1 tablet by mouth once daily. - TIZANIDINE HCL (ZANAFLEX ORAL) Take by mouth twice daily. Problem List As Of Date 04/23/2024 Noted Resolved CHOLELITHIASIS NOS [K80.20] 10/17/2005 05/23/2006 Mild intermittent asthma without complication [*05/23/2006 03/30/2018 Common migraine [G43.009] 05/23/2006 Abnormal maternal glucose tolerance, antepartum*05/23/2006 03/30/2018 Family history of diabetes mellitus [Z83.3] 05/23/2006 03/30/2018 Polycystic ovaries [E28.2] 05/23/2006 Obesity due to excess calories [E66.09] 05/23/2006 Calculus of ureter [N20.1] 05/23/2006 03/30/2018 Lumbago [M54.50] 05/23/2006 Depressive disorder [F32.A] 08/20/2006 Goiter, euthyroid [E04.9] 09/28/2006 Fatty Liver [K76.0] 06/05/2009 Hyperlipidemia [E78.5] 06/05/2009 Diabetes mellitus type 2, controlled, without c*06/05/2009 Tobacco use disorder [F17.200] 06/05/2009 Porokeratosis [Q82.8] 02/12/2011 Cervicalgia [M54.2] 01/14/2013 Callus of foot [L84] 03/30/2018 Displacement of lumbar intervertebral disc with*08/04/2014 Sprain of lumbar region [S33.5XXA] 08/04/2014 03/30/2018 RLS (restless legs syndrome) [G25.81] 03/30/2018 Transition of care performed with sharing of cl*11/29/2018 08/23/2021 Hospital discharge follow-up [Z09] 08/22/2021 Menorrhagia with irregular cycle [N92.1] 12/16/2023 Dysmenorrhea [N94.6] 12/16/2023 Prescriptions ordered this encounter Disp Refills Start End METRONIDAZOLE 500 MG TABLET 14 t* 0 04/23/2024 04/30/2024 Route: ORAL Sig: Take 1 tablet by mouth two times a day for 7 days. Encounter Status:Closed by ZHENG LUNA on 04/23/24 Normal [facility] BACTERIAL VAGINOSIS NAATon 0 04-22-2024 Lactobacillus crispatus+gasseri+dar senii + Gardnerella vaginalis + Atopobium vaginae rRNA MALIK+probe Ql (Vag fld) Positive Abnormal Negative for bacterial vaginosis [facility] Comment on above: Order Comment: Speci men Type: BLOOD SPECIMEN Ordering Facility: [facility] Address: [address] [place] [address] Performed By: #### 2 4323-8, 08223-2, LIPNF, 3016-3 #### [facility] CLIA [id number] [address] [place] [address] [place] WILLY/TRICHOMONAS NAATon 0 04-22-2024 C. glabrata RNA MALIK+probe Ql (Vag fld) Negative Normal Negative for Willy glabrata [facility] Comment on above: Order Comment: Speci men Type: BLOOD SPECIMEN Ordering Facility: [facility] Address: [address] [place] [address] Performed By: #### 2 4323-8, 53899-0, LIPNF, 3016-3 #### [facility] CLIA [id number] [address] [place] [address] [place] Willy sp DNA MALIK+probe Ql (Vag fld) Negative Normal Negative for Willy species [facility] Comment on above: Order Comment: Speci men Type: BLOOD SPECIMEN Ordering Facility: [facility] Address: [address] [place] [address] Performed By: #### 2 4323-8, 01210-0, LIPNF, 3016-3 #### [facility] CLIA [id number] [address] [place] [address] [place] T. vaginalis DNA MALIK+probe Ql (Unsp spec) Negative Normal Negative for Trichomonas vaginalis by amplification [facility] Comment on above: Order Comment: Speci men Type: BLOOD SPECIMEN Ordering Facility: [facility] Address: [address] [place], [place] [address] Performed By: #### 2 4323-8, 00841-4, LIPNF, 3016-3 #### [facility] CLIA [id number] [address] [place] [address] [place] CBC W Ordered Manual Differe ntial panel (Bld)on 04-22-2024 Basophils (Bld) [#/Vol] 0.06 10*3/uL [facility] Basophils/100 WBC (Bld) 0.6 % [facility] Differential cell count method Nom (Bld) Auto [facility] Eosinophils (Bld) [#/Vol] 0.46 10*3/uL High [facility] Eosinophils/100 WBC (Bld) 4.5 % [facility] Erythrocyte distribution width (RBC) [Ratio] 12.0 % 11.5 - 15.0 % [facility] Hematocrit (Bld) [Volume fraction] 38.0 % 36.0 - 46.0 % [facility] Hemoglobin (Bld) [Mass/Vol] 12.6 g/dL 11.5 - 15.5 g/dL [facility] Immature granulocytes (Bld) [#/Vol] [facility] Immature granulocytes/100 WBC (Bld) 0.2 % [facility] Interpretation and review of laboratory results Abnormal [facility] Lymphocytes (Bld) [#/Vol] 3.69 10*3/uL [facility] Lymphocytes/100 WBC (Bld) 36.4 % [facility] MCH (RBC) [Entitic mass] 31.1 pg 26.0 - 34.0 pg [facility] MCHC (RBC) [Mass/Vol] 33.2 g/dL 30.5 - 36.0 g/dL [facility] MCV (RBC) [Entitic vol] 93.8 fL 80.0 - 100.0 fL [facility] Monocytes (Bld) [#/Vol] 0.66 10*3/uL [facility] Monocytes/100 WBC (Bld) 6.5 % [facility] Neutrophils (Bld) [#/Vol] 5.25 10*3/uL [facility] Neutrophils/100 WBC (Bld) 51.8 % [facility] Nucleated RBC (Bld) [#/Vol] [facility] Nucleated RBC/100 WBC (Bld) [Ratio] 0.0 % /100 WBC [facility] Platelet mean volume (Bld) [Entitic vol] 10.7 fL 9.0 - 12.7 fL [facility] Platelets (Bld) [#/Vol] 288 10*3/uL [facility] RBC (Bld) [#/Vol] 4.05 10*6/uL 3.90 - 5.2 0 m/uL [facility] WBC (Bld) [#/Vol] 10.14 10*3/uL [facility] This is an appended report. These results have been appended to a previously verified report. [facility] Basophils (Bld) [#/Vol] 0.06 10*3/uL Normal <0.11 [facility] Comment on above: Order Comment: Speci men Type: BLOOD SPECIMEN Ordering Facility: [facility] Address: [address] [place] [address] Performed By: #### 5 7021-8 #### [facility] CLIA [id number] [address] [place] [address] [place] Basophils/100 WBC (Bld) 0.6 % Normal [facility] Comment on above: Order Comment: Speci men Type: BLOOD SPECIMEN Ordering Facility: [facility] Address: [address] [place] [address] Performed By: #### 5 7021-8 #### [facility] CLIA [id number] [address] [place] [address] [place] Differential cell count method Nom (Bld) Auto Normal [facility] Comment on above: Order Comment: Speci men Type: BLOOD SPECIMEN Ordering Facility: [facility] Address: [address] [place] [address] Performed By: #### 5 7021-8 #### [facility] CLIA [id number] [address] [place] [address] [place] Eosinophils (Bld) [#/Vol] 0.46 10*3/uL High <0.46 [facility] Comment on above: Order Comment: Speci men Type: BLOOD SPECIMEN Ordering Facility: [facility] Address: [address] [place] [address] Performed By: #### 5 7021-8 #### [facility] CLIA [id number] [address] [place] [address] [place] Eosinophils/100 WBC (Bld) 4.5 % Normal [facility] Comment on above: Order Comment: Speci men Type: BLOOD SPECIMEN Ordering Facility: [facility] Address: [address] [place] [address] Performed By: #### 5 7021-8 #### [facility] CLIA [id number] [address] [place] [address] [place] Erythrocyte distribution width (RBC) [Ratio] 12.0 % Normal 11.5-15.0 [facility] Comment on above: Order Comment: Speci men Type: BLOOD SPECIMEN Ordering Facility: [facility] Address: [address] [place] [address] Performed By: #### 5 7021-8 #### [facility] CLIA [id number] [address] [place] [address] [place] Hematocrit (Bld) [Volume fraction] 38.0 % Normal 36.0-46.0 [facility] Comment on above: Order Comment: Speci men Type: BLOOD SPECIMEN Ordering Facility: [facility] Address: [address] [place] [address] Performed By: #### 5 7021-8 #### [facility] CLIA [id number] [address] [place], [place] [address] [place] Hemoglobin (Bld) [Mass/Vol] 12.6 g/dL Normal 11.5-15.5 [facility] Comment on above: Order Comment: Speci men Type: BLOOD SPECIMEN Ordering Facility: [facility] Address: [address] [place] [address] Performed By: #### 5 7021-8 #### [facility] CLIA [id number] [address] [place] [address] [place] Immature granulocytes (Bld) [#/Vol] 10*3/uL Normal <0.10 [facility] Comment on above: Order Comment: Speci men Type: BLOOD SPECIMEN Ordering Facility: [facility] Address: [address] [place] [address] Performed By: #### 5 7021-8 #### [facility] CLIA [id number] [address] [place] [address] [place] Immature granulocytes/100 WBC (Bld) 0.2 % Normal [facility] Comment on above: Order Comment: Speci men Type: BLOOD SPECIMEN Ordering Facility: [facility] Address: [address] [place] [address] Performed By: #### 5 7021-8 #### [facility] CLIA [id number] [address] [place] [address] [place] Lymphocytes (Bld) [#/Vol] 3.69 10*3/uL Normal 1.00-4.00 [facility] Comment on above: Order Comment: Speci men Type: BLOOD SPECIMEN Ordering Facility: [facility] Address: [address] [place] [address] Performed By: #### 5 7021-8 #### [facility] CLIA [id number] [address] [place] [address] [place] Lymphocytes/100 WBC (Bld) 36.4 % Normal [facility] Comment on above: Order Comment: Speci men Type: BLOOD SPECIMEN Ordering Facility: [facility] Address: [address] [place] [address] Performed By: #### 5 7021-8 #### [facility] CLIA [id number] [address] [place] [address] [place] MCH (RBC) [Entitic mass] 31.1 pg Normal 26.0-34.0 [facility] Comment on above: Order Comment: Speci men Type: BLOOD SPECIMEN Ordering Facility: [facility] Address: [address] [place] [address] Performed By: #### 5 7021-8 #### [facility] CLIA [id number] [address] [place] [address] [place] MCHC (RBC) [Mass/Vol] 33.2 g/dL Normal 30.5-36.0 [facility] Comment on above: Order Comment: Speci men Type: BLOOD SPECIMEN Ordering Facility: [facility] Address: [address] [place] [address] Performed By: #### 5 7021-8 #### [facility] CLIA [id number] [address] [place] [address] [place] MCV (RBC) [Entitic vol] 93.8 fL Normal 80.0-100.0 [facility] Comment on above: Order Comment: Speci men Type: BLOOD SPECIMEN Ordering Facility: [facility] Address: [address] [place] [address] Performed By: #### 5 7021-8 #### [facility] CLIA [id number] [address] [place] [address] [place] Monocytes (Bld) [#/Vol] 0.66 10*3/uL Normal <0.87 [facility] Comment on above: Order Comment: Speci men Type: BLOOD SPECIMEN Ordering Facility: [facility] Address: [address] [place] [address] Performed By: #### 5 7021-8 #### [facility] CLIA [id number] [address] [place] [address] [place] Monocytes/100 WBC (Bld) 6.5 % Normal [facility] Comment on above: Order Comment: Speci men Type: BLOOD SPECIMEN Ordering Facility: [facility] Address: [address] [place] [address] Performed By: #### 5 7021-8 #### [facility] CLIA [id number] [address] [place] [address] [place] Neutrophils (Bld) [#/Vol] 5.25 10*3/uL Normal 1.45-7.50 [facility] Comment on above: Order Comment: Speci men Type: BLOOD SPECIMEN Ordering Facility: [facility] Address: [address] [place] [address] Performed By: #### 5 7021-8 #### [facility] CLIA [id number] [address] [place] [address] [place] Neutrophils/100 WBC (Bld) 51.8 % Normal [facility] Comment on above: Order Comment: Speci men Type: BLOOD SPECIMEN Ordering Facility: [facility] Address: [address] [place] [address] Performed By: #### 5 7021-8 #### [facility] CLIA [id number] [address] [place] [address] [place] Nucleated RBC (Bld) [#/Vol] 10*3/uL Normal <0.01 [facility] Comment on above: Order Comment: Speci men Type: BLOOD SPECIMEN Ordering Facility: [facility] Address: [address] [place] [address] Performed By: #### 5 7021-8 #### [facility] CLIA [id number] [address] [place] [address] [place] Nucleated RBC/100 WBC (Bld) [Ratio] 0.0 /100 WBC Normal [facility] Comment on above: Order Comment: Speci men Type: BLOOD SPECIMEN Ordering Facility: [facility] Address: [address] [place] [address] Performed By: #### 5 7021-8 #### [facility] CLIA [id number] [address] [place] [address] [place] Platelet mean volume (Bld) [Entitic vol] 10.7 fL Normal 9.0-12.7 [facility] Comment on above: Order Comment: Speci men Type: BLOOD SPECIMEN Ordering Facility: [facility] Address: [address] [place] [address] Performed By: #### 5 7021-8 #### [facility] CLIA [id number] [address] [place] [address] [place] Platelets (Bld) [#/Vol] 288 10*3/uL Normal 150-400 [facility] Comment on above: Order Comment: Speci men Type: BLOOD SPECIMEN Ordering Facility: [facility] Address: [address] [place] [address] Performed By: #### 5 7021-8 #### [facility] CLIA [id number] [address] [place] [address] [place] RBC (Bld) [#/Vol] 4.05 10*6/uL Normal 3.90-5.20 [facility] Comment on above: Order Comment: Speci men Type: BLOOD SPECIMEN Ordering Facility: [facility] Address: [address] [place] [address] Performed By: #### 5 7021-8 #### [facility] CLIA [id number] [address] [place] [address] [place] WBC (Bld) [#/Vol] 10.14 10*3/uL Normal 3.70-11.00 [facility] Comment on above: Order Comment: Speci men Type: BLOOD SPECIMEN Ordering Facility: [facility] Address: [address] [place] [address] Performed By: #### 5 7021-8 #### [facility] CLIA [id number] [address] [place] [address] [place] CNOVon 04-22-2024 CNOV Office Visit (OBGYWM ) -------- ANA HERNANDEZ ([id number]) 1980 F Date Time Provider Department 04/22/24 1:10 PM ZHENG LUNA OBGYWAlbert During your visit today, we recorded the following information about you: Blood pressure Weight 110/72 91.6 kg Zheng Luna MD 04/22/2024 1:55 PM Signed [address] Vending Machine Servicer offered: Patient declines. DATE OF SERVICE: 04/22/2024 PROBLEM: Ana Hernandez presents for postop visit. SURGERY AND DATE: diagnostic hysteroscopy 04/15/2024 Patient was planning on hysterectomy. At time of surgery significant adhesive disease was noted. Uterus was adhered to anterior abdominal wall. Left pelvic side wall contained significant adhesive disease and adnexa and ureter were unable to be visualized PATHOLOGY: none SUBJECTIVE/INTERVAL HISTORY: Ana Hernandez is doing okay. Abdominal pain is improving slowly. She describes the pain as an ache. Passing gas and eating well. No nausea or vomiting. No bowel movement since before surgery. Having a vaginal discharge that is pink in color. No vaginal odor or vaginal itching or burning. No fevers, chills. No difficulty with urination. Went into the ER and had labs and X-ray done. OBJECTIVE: VITALS: BP 110/72 Wt 91.6 kg (202 lb) LMP 03/08/2024 (Approximate) BMI 36.47 kg/m? HEENT: Normocephalic and atraumatic ABDOMEN: Abdomen soft, minimally tender, no hepatosplenomegaly. Incision healing well. Non distended. Non acute PELVIC: External genitalia normal. Vagina and cervix normal on exam. Thin, barton discharge present LOWER EXTREMITIES: No pitting edema, no palpable cords, and no skin changes. ASSESSMENT: post op PLAN: Reviewed surgical findings Referral placed to [facility] Check for BV Discussed pain likely secondary to gas and constipation. Taking Colace. Sent rx for Miralax. Push fluids and encouraged probiotic, fiber, prune or pear juice. To notify office by Friday if no improvement with Miralax Zheng Wiswell, DO Referring Provider: MYRANDA [place] [[id number]] Allergies As of Date: 04/22/2024 Noted Allergy Reaction AVELOX (MOXIFLOXACIN HCL) 08/10/2009 2 - Rash DOXY (DOXYCYCLINE) 06/09/2009 8 - GI Upset PENICILLINS 10/17/2005 14 - Other: See Comments Comments: Mother does not recall what the reaction was and was told that she cannot take it PROZAC (FLUOXETINE HCL) 05/08/2011 14 - Other: See Comments Comments: Mother had side effects from this Date Reviewed: 04/22/2024 Reviewed by: Sadaf Sorensen MA - Fully Assessed Reason for Visit: Post-Op Visit [1236] Primary Visit Diagnosis:Post-operative state [Z98.890] Other Visit Diagnoses:Vaginal discharge [N89.8] Constipation, unspecified constipation type [K59.00] Chronic pelvic pain in female [R10.2, G89.29] DUB (dysfunctional uterine bleeding) [N93.8] Order(s):BACTERIAL VAGINOSIS NAAT [SQBVAMP] Order #: [id number]. #:[id number] WILLY/TRICHOMONAS NAAT [SQCVTV] Order #: [id number]. #:[id number] polyethylene glycol 3350 17 gram/dose powderTake 17 g by mouth once daily.Disp: 116 gRfl: 0 CONSULT TO MINIMALLY INVASIVE GYNECOLOGIC SURGERY [5124099] Order #: [id number]: 1 FUTURE Prescriptions as of 04/22/2024 - polyethylene glycol 3350 17 gram/dose powder Take 17 g by mouth once daily. - magnesium oxide (MAG-OX) 400 mg (241.3 mg magnesium) tablet Take 1 tablet by mouth two times a day. - metFORMIN (GLUCOPHAGE) 1,000 mg tablet Take 1 tablet by mouth two times a day with meals. - venlafaxine ER (EFFEXOR XR) 37.5 mg 24 hr capsule Take 1 capsule by mouth once daily. - norethindrone (AYGESTIN) 5 mg tablet Take 1 tablet by mouth once daily. - amitriptyline (ELAVIL) 50 mg tablet Take 1-2 tablets by mouth daily at bedtime. - busPIRone HCl 30 mg tablet Take 1 tablet by mouth two times a day. - simvastatin (ZOCOR) 40 mg tablet Take 1 tablet by mouth daily at bedtime. - topiramate (TOPAMAX) 50 mg tablet Take 1 tablet by mouth two times a day. - propranolol (INDERAL) 40 mg tablet Take 0.5 tablets by mouth two times a day. - ZINC ORAL Take 50 mg by mouth once daily. - cholecalciferol, vitamin D3, (VITAMIN D3 ORAL) Take 1 tablet by mouth once daily. - blood-glucose meter,mobile dev (HOLLY BLOOD GLUCOSE MONITOR) lyn - albuterol HFA (PROAIR HFA) 90 mcg/actuation inhaler Inhale 2 Puffs as instructed every 4 hours as needed. - omega-3 fatty acids (FISH OIL CONCENTRATE) 1,000 mg cap Take 1,000 mg by mouth once daily. - HYDROcodone-acetaminophe n (NORCO) 5-325 mg per tablet Take 5-325 tablets by mouth twice daily as needed. - multivit-minerals/ferrou s fum (MULTI VITAMIN ORAL) Take 1 tablet by mouth once daily. - TIZANIDINE HCL (ZANAFLEX ORAL) Take by mouth twice daily. Problem List As Of Date 04/22/2024 Noted Resolved CHOLELITHIASIS NOS [K80.20] 10/17/2005 05/23/2006 Mild intermittent asthma without complication [*05/23/2006 03/30/2018 Common m (more content not included)... Normal [facility] CNOVSPon 04-22-2024 CNOVSP Visit (SP) Office (PRITESH) -------- ANA HERNANDEZ ([id number]) 1980 F Date Time Provider Department 04/22/24 10:10 AM JOSE TSAI During your visit today, we recorded the following information about you: Temperature Pulse Blood pressure Weight 98 degrees 64/minute 106/71 92.1 kg Height 1.585 m Jose Tsai DO 04/22/2024 11:13 AM Signed Consulted for leukocytosis. The impression and plan will be communicated by way of the shared electronic record. HPI: The patient is a 44-year-old female with past medical history as outlined below. Vapes. Menses irregular. Heavy. Painful. Has been diagnosed with PCOS--dx at age 7 when living in [place]. Was going have hysterectomy last week, but couldn't have done due to ?adhesions. Has h/o asthma. Only uses albuterol if sick. Used it last when had Covid last year. Diagnosed with fatty liver in the past. Persistent mild increase in hepatocellular enzymes. PAST MEDICAL HISTORY 05/23/2006: ABN GLUCOSE-ANTEPARTUM 05/23/2006: ASTHMA UNSPECIFIED 05/23/2006: Calculus of ureter No date: Callus of foot No date: Callus of foot 05/23/2006: COMMON MIGRAINE W/O MENTN INTRACT 08/20/2006: DEPRESSIVE DISORDER NEC Comment: 06/09 -Stable, no meds 05/23/2006: Family history of diabetes mellitus Comment: Mother, Father, Maternal Grandparents 05/23/2006: FAMILY HX DIABETES MELLITUS Comment: Mother, Father, Maternal Grandparents 06/05/2009: Fatty liver Comment: CT Scan 01/06, showed diffuse fatty liver. LFTs elevated in past, but 06/09 - normal 09/28/2006: GOITER NOS Comment: TSH normal 05/23/2006: Lumbago 05/23/2006: Mild intermittent asthma without complication Comment: Since age 11. No medication. Last attack > 10 years 05/23/2006: OBESITY NOS No date: Peripheral autonomic neuropathy due to diabetes mellitus (HCC) No date: PMH - PAST MEDICAL HISTORY OF Comment: kidney stones 05/23/2006: Polycystic ovaries 05/23/2006: Polycystic ovaries No date: Snoring 08/04/2014: Sprain of lumbar region 06/05/2009: Tobacco use disorder 06/05/2009: Type II or unspecified type diabetes mellitus without mention of complication, not stated as uncontrolled No date: Unspecified asthma(493.90) PAST SURGICAL HISTORY No date: DELIVERY ONLY Comment: , low cervical 08/28/2018: COLONOSCOPY Comment: hemorrhoid banding 04/15/2024: L'SCOPE DX W/WO BRUSHINGS/WASHINGS No date: LAPAROSCOPY SURG CHOLECYSTECTOMY Comment: Cholecystectomy, lap No date: MYRINGOTOMY ASPIRAND/EUSTACHIAN TUBE NFLTJ ANES Comment: Myringotomy/tubes No date: PAST SURGICAL HISTORY OF Comment: stents in ureter for kidney stones 08/04/2014: PAST SURGICAL HISTORY OF Comment: lumbar pain injections. No date: TONSILLECTOMY PRIMARY/SECONDARY Comment: Tonsillectomy ALLERGIES Allergen Reactions Avelox [Moxifloxaci* Rash Doxy [Doxycycline] GI Upset Penicillins Other: See Comments Mother does not recall what the reaction was and was told that she cannot take it Prozac [Fluoxetine * Other: See Comments Mother had side effects from this Social History Tobacco Use Smoking status: Former Current packs/day: 0.00 Average packs/day: 0.3 packs/day for 3.0 years (0.9 ttl pk-yrs) Types: Cigarettes Start date: 09/10/2010 Quit date: 09/10/2013 Years since quittin.6 Smokeless tobacco: Never Tobacco comments: uses E cigs Vaping Use Vaping status: current everyday user Substances: Nicotine, Flavoring Devices: [employer] tank Substance Use Topics Alcohol use: No Drug use: No Family History Problem Relation Age of Onset Diabetes Mother Diabetes Father Colon Cancer Father 61 Diabetes Maternal Grandmother other (Parkinson's) Maternal Grandmother Stroke Maternal Grandfather Diabetes Maternal Grandfather Colon Cancer Paternal Grandfather PHYSICAL EXAM: Vitals: Blood pressure 106/71, pulse 64, temperature 36.7 ?C (98 ?F), temperature source Temporal, height 158.5 cm (5' 2.4), weight 92.1 kg (203 lb), last menstrual period 03/08/2024, SpO2 97%. Well-appearing and in no acute distress. EYES: Sclerae are anicteric bilaterally. ENT: Oral mucosa is unremarkable. There is no sign of thrush or mucositis. LYMPHATIC: There is no palpable cervical, supraclavicular, axillary adenopathy. RESPIRATORY: Inspiratory breath sounds are of normal intensity in all roberson. No rales, wheezes or rhonchi. CARDIOVASCULAR: Rhythm is regular. ABDOMEN: The abdomen is nondistended. No splenomegaly or hepatomegaly. No tenderness. Extremities: No swelling or edema. SKIN: No jaundice. ASSESSMENT/PLAN: (R79.89) LFT elevation (D72.829) Leukocytosis, unspecified type (D72.820) Lymphocytosis Assessment: -The patient is a 44-year-old female with a past medical history as outlined above. -She has had occasional neutrophilia over the last several years. It has been mild. (more content not included)... Normal [facility] CRP SerPl-mCncon 04-22-2024 CRP [Mass/Vol] 1.9 mg/dL High <0.9 [facility] Comment on above: Order Comment: Specjoe cabrera Type: BLOOD SPECIMENOrdering Facility: [facility] Address: [address] [place] [address] Performed By: #### 2 276-4, 1987-12 ####[facility] [id number] [address] [place] FLOW CYTOMETRY FOR LEUKEMIA/ LYMPHOMA (FCLL) PERFORMABLEon 04-22-2024 FLOW CYTOMETRY ORDER STATUS Results will be reported under F case ID when completed Normal [facility] Comment on above: Order Comment: Mary cabrera Type: BLOOD SPECIMEN Ordering Facility: [facility] Address: [address] [place] [address] Performed By: #### 2 4323-8, 84985-8, LIPCLOVIS, 3016-3 #### [facility] CLIA [id number] [address] [place] [address] [place] FLOW CYTOMETRY FOR LEUKEMIA/ LYMPHOMA (FCLL) REFLEXon 04-22-2024 DIAGNOSIS COMMENT Normal [facility] Comment on above: Order Comment: Mary cabrera Type: BLOOD SPECIMEN Ordering Facility: [facility] Address: [address] [place] [address] Result Comment: This test was developed and its performance characteristics determined by [facility]'s [facility] Pathology and Laboratory Medicine [place] ([facility]). It has not been cleared or approved by the FDA. [facility] is regulated under CLIA as qualified to perform high-complexity testing. This test is used for clinical purposes. It should not be regarded as investigational or for research. Performed By: #### 2 4323-8, 59940-3, LIPNF, 3016-3 #### [facility] CLIA [id number] [address] [place] [address] [place] FINAL PERFORMING LAB Normal [facility] Comment on above: Order Comment: Speci men Type: BLOOD SPECIMEN Ordering Facility: [facility] Address: [address] [place] [address] Result Comment: Diag nostic interpretation performed at [facility], [address] [place] [address] CLIA# [id number] Account Associate: Stephen Gandhi M.D. Performed By: #### 2 4323-8, 41559-5, LIPNF, 3016-3 #### [facility] CLIA [id number] [address] [place] [address] FLOW CYTOMETRY RESULTS Normal [facility] Comment on above: Order Comment: Speci men Type: BLOOD SPECIMEN Ordering Facility: [facility] Address: [address] [place] [address] Result Comment: Spec imen type: Peripheral blood CBC (04/22/2024): WBC = 10.54 K/uL; Hgb = 12.6 g/dL; Plt = 289 K/uL Differential (%): Neutrophil: 51; Lymphocyte: 37; Monocyte: 7; Eosinophil: 4; Basophil: 1. Morphology: Unremarkable peripheral blood smear. Viability: 99% Flow Cytometry Peripheral Blood Immunophenotyping Marker Normal Cell Type Result (Lymphocytes) CD2 T/NK cells Normal Pattern CD3 T-cells Normal Pattern CD4 T-cell subset Normal Pattern CD5 T-cells Normal Pattern CD7 T/NK-cells Normal Pattern CD8 T-cell subset Normal Pattern CD10 B-cell subset Normal Pattern CD13 Myeloid Normal Pattern CD16/56 NK cells Normal Pattern CD19 B-cells Normal Pattern CD20 B-cells Normal Pattern CD23 B-cells subset Normal Pattern CD45 De [place]-leukocyte Normal Pattern CD123 Dendritic Normal Pattern CD200 B-cells Normal Pattern kappa/lambda B-cells Normal Pattern TRBC1 T-cells Normal, polytypic Flow cytometric analysis of the peripheral blood reveals that 37% of total events have the CD45 and side scatter properties of lymphocytes. The lymphocytes are composed of a mixture of heterogeneous T-cells (72%; CD4:CD8 ratio = 2.7), NK cells (5%) and polytypic B-cells (23%). Performed By: #### 2 4323-8, 65875-5, EHATHER, 3015-3 #### [facility] CLIA [id number] [address] [place] [address] [place] GROSS DESCRIPTION A. Blood Normal [facility] Comment on above: Order Comment: Speci men Type: BLOOD SPECIMEN Ordering Facility: [facility] Address: [address] [place] [address] Result Comment: RECE IVED TWO 3 ML TUBES OF PERIPHERAL BLOOD IN EDTA Performed By: #### 2 4323-8, 51766-0, HEATHER, 3015-3 #### [facility] CLIA [id number] [address] [place] [address] [place] INTERPRETATION Normal [facility] Comment on above: Order Comment: Speci men Type: BLOOD SPECIMEN Ordering Facility: [facility] Address: [address] [place] [address] Result Comment: Ther e is no immunophenotypic evidence of involvement by a lymphoproliferative disorder. Correlation with the clinical findings is suggested. JB/ROSEANNE/04/23/2024 Performed By: #### 2 4323-8, 46988-3, HEATHER, 3015-3 #### [facility] CLIA [id number] [address] [place] [address] [place] Ferritin SerPl-mCncon 2023 Ferritin [Mass/Vol] 222.0 ng/mL High 14.7-205.1 [facility] Comment on above: Order Comment: Speci men Type: BLOOD SPECIMENOrdering Facility: [facility] Address: [address] [place] [address] Performed By: #### 2 276-4, 1987-12 ####[facility]IA [id number] [place] [address] [place] HBV core Ab Ser Qlon 024 HBV core Ab Ql (S) Negative Normal Negative [facility] Comment on above: Order Comment: Speci men Type: BLOOD SPECIMEN Ordering Facility: [facility] Address: [address] [place] [address] Result Comment: No e vidence of current or past infection with Hepatitis B virus. Should recent infection be suspected, repeat testing may be considered 3-4 weeks after this draw. Performed By: #### 5 7021-8 #### [facility] CLIA [id number] [address] [place] [address] [place] HBV surface Ab Ql (S)on 04-02 HBV surface Ab Qn (S) 10.64 mIU/mL Normal [facility] Comment on above: Order Comment: Speci men Type: BLOOD SPECIMEN Ordering Facility: [facility] Address: [address] [place] [address] Result Comment: <8 m IU/mL: No serological evidence of immunity to Hepatitis B Virus. >/= 8 to <12 mIU/mL: No serological evidence of immunity to Hepatitis B Virus. >/= 12 mIU/mL: Consistent with serological evidence of immunity to Hepatitis B Virus. Performed By: #### 5 7021-8 #### [facility] CLIA [id number] [address] [place] [address] [place] HBV surface Ab Ser Qlon 04-02 HBV surface Ab Ql (S) Equivocal Normal [facility] Comment on above: Order Comment: Speci men Type: BLOOD SPECIMEN Ordering Facility: [facility] Address: [address] [place] [address] Result Comment: No s erological evidence of immunity to Hepatitis B Virus. Performed By: #### 5 7021-8 #### [facility] CLIA [id number] [address] [place] [address] [place] HBV surface Ag Ser Qlon 04-02 HBV surface Ag Ql (S) Negative Normal Negative [facility] Comment on above: Order Comment: Speci men Type: BLOOD SPECIMEN Ordering Facility: [facility] Address: [address] [place] [address] Performed By: #### 5 7021-8 #### [facility] CLIA [id number] [address] [place] [address] [place] HCV Ab Ser Qlon 04-22-2024 HCV Ab Ql (S) Negative Normal Negative [facility] Comment on above: Order Comment: Speci men Type: BLOOD SPECIMENOrdering Facility: [facility] Address: [address] [place] [address] Result Comment: The result suggests no evidence of active infection with Hepatitis C virus. Should recent infection be suspected, repeat testing may be considered 4-6 weeks after this draw. Performed By: #### 1 6128-1 ####[facility] [id number] [address] OF [facility] PATHOLOGIST INTERPRETATION C BC/DIFFon 04-22-2024 Loan [employer] Credit Manager review Wei (Unsp spec) [Interp] No review performed. Normal [facility] Comment on above: Order Comment: Speci men Type: BLOOD SPECIMEN [facility]ing [facility]: [facility] Address: [address] [place] [address] Performed By: #### 5 7021-8 #### [facility] CLIA [id number] [address] [place] [address] [place] STAFF REVIEW, CBCDIF Normal [facility] Comment on above: Order Comment: Speci [facility] Type: BLOOD SPECIMEN Ordering Facility: [facility] Address: [address] [place] [address] Result Comment: The Pathologist Interpretation on this sample was cancelled because the hematology analyzer did not flag any parameters as requiring manual review. If there is a specific clinical concern for which you would like a pathologist to review the blood smear, please call Lab Client Services within 28 days. Performed By: #### 5 7021-8 #### [facility] CLIA [id number] [address] [facility] [place] [place] [id number] [place] Emergency Department Summary on 04-21-2024 Emergency Department Summary [facility] Medical Records Department [address] [place] [address] Emergency Department Summary 04/21/24 MR#: [id number] Acct: [id number] Name: ANA HERNANDEZ Rep #: [id number] : 1980 44 From: Lloyd Thomas DO PCP: WILBERTO Andrews Status:DEP ER Location: ED HPI History of Present Illness Chief Complaint: Abd Pain Informant: patient and family Narrative Narrative: Patient is a 44-year-old female with past medical history of anxiety and depression as well as hypertension and dff-bumswfs-ylwnvteam diabetes. Patient underwent a diagnostic laparoscopic surgery 5 days ago in an attempt to potentially have a hysterectomy. 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 She states she has been taking Percocet at home for pain and been doing fiber supplements to try and help with constipation. However she has not had a bowel movement since last Friday and she has had increasing upper abdominal pain for the last 2 days and difficulty keeping food and fluid down secondary to this she presents for evaluation [facility] Medical History Injury of back Wears glasses Depression Anxiety Fatty liver High cholesterol Restless legs Back pain Smoker Leg cramps History of echocardiogram Polycystic ovaries History of pneumonia History of gallstones Migraines Diabetes Home Medications ???Medication ???Instructions ???Recorded ???Last Taken ???Type buspirone 30 mg tablet 30 mg PO BID 05/02/18 04/14/24 History tizanidine 4 mg tablet 4 mg PO BID PRN muscle spasticity 05/02/18 04/14/24 History acetaminophen 650 mg/20.3 mL oral 500 mg (15.6154 mL) PO Q4H PRN PRN 11/16/18 Unknown Rx solution Headache/Temp>99F ibuprofen 600 mg tablet 600 mg PO 4X/DAY PRN Headache #1 11/16/18 Unknown Rx TAB multivitamin 1 tab PO DAILY 11/24/18 04/14/24 History simvastatin 40 mg tablet 40 mg PO QHS 05/19/21 04/14/24 History amitriptyline 50 mg tablet 100 mg PO QHS 06/12/21 04/14/24 History omega-3 fatty acids 1,000 mg 1,200 mg PO BID 06/12/21 04/10/24 History capsule (Fish Oil Concentrate) rimegepant 75 mg disintegrating 75 mg PO DAILY PRN migraine 08/29/22 Unknown Rx tablet (Nurtec ODT) headache #16 tabs topiramate 100 mg tablet 100 mg PO BID #60 tabs 08/29/22 04/14/24 Rx propranolol 20 mg tablet 20 mg PO Q12H migraine 04/05/24 04/14/24 History venlafaxine 37.5 mg 37.5 mg PO DAILY 04/05/24 04/14/24 History capsule,extended release 24 hr oxycodone-acetaminophen 5 mg-325 1 tab PO Q6H PRN pain 7 days #10 04/15/24 Unknown Rx mg tablet (Percocet) tabs cholecalciferol (vitamin D3) 125 125 mcg PO DAILY 04/20/24 Unknown History mcg (5,000 unit) tablet (Vitamin D3) desvenlafaxine succinate 25 mg 25 mg PO DAILY 04/20/24 Unknown History tablet,extended release 24 hr metformin 1,000 mg tablet 1,000 mg PO BID 04/20/24 Unknown History oxycodone-acetaminophen 5 mg-325 1 tab PO Q6H PRN pain 3 days #12 04/21/24 Unknown Rx mg tablet (Percocet) tabs Allergy/AdvReac Type Severity Reaction Status Date / Time doxycycline Allergy Hives Verified 04/20/24 21:14 moxifloxacin HCl (From Allergy Hives Verified 04/20/24 21:14 Avelox) Penicillins (PCN) Allergy Hives Verified 04/20/24 21:14 Surgical History History of colonoscopy History of dilation and curettage History of selective injection of anesthetic agent around lumbar nerve root History of tonsillectomy and adenoidectomy History of section History of cholecystectomy Social History Smoking Status: Current every day smoker tobacco type: e-cigarettes Tobacco: How many years used: 6 Smokeless tobacco user: other Electronic Cigarette Use: with nicotine second hand exposure: No alcohol intake: never substance use type: does not use dillon/yazidism: None seatbelt use: always ROS ROS ED Constitutional Constitutional ED: Denies chills or fever(s) Eyes Eyes: Denies blurry vision or change in vision ENT ENT ED: Denies sore throat Cardiovascular Cardiovascular: Denies chest pain Respiratory/Chest Respiratory/Chest: Denies cough or dyspnea Gastrointestinal Gastrointestinal: Reports abdominal pain, constipation, nausea and vomiting; Denies diarrhea Genitourinary Genitourinary ED: Denies dysuria or hematuria Musculoskeletal Musculoskeletal: Denies myalgias Integumentary Denies rash Neurologic Neurologic: Denies headache(s) Hematologic/Lymphatic Hematologic/Lymphatic: Denies easy bleeding or easy bruis (more content not included)... Normal [facility] Abd Decub and/or Erect([facility] blon 04-20-2024 Abd Decub and/or Erect([facility] [address] [place] [address] Abd Decub and/or Erect([facility] MR#: [id number] Acct: [id number] Name: ANA HERNANDEZ Rep #: [id number] : 1980 F 44 From: Sho Cardoso PCP: WILBERTO Andrews Status: REG ER Study: Abd Decub and/or Erect([facility] Date of Exam: 0 04/20/24 Exam# [id number] Ordering Dr: Lloyd Thomas DO ADDENDUM by Dr. Sho Milton MD on 04/20/24 at 2244 [id number] INDICATION: constipation EXAMINATION/TECHNIQUE: X-RAY - XR Abdomen W/ Decub and/or Erect Views COMPARISON: No relevant prior comparison study available FINDINGS: AP supine and upright views. There is lucency beneath the diaphragm on the upright view suspicious for free air. Detail is relatively limited by the overlying soft tissues. Paucity of bowel gas in the abdomen with nonspecific fluid levels. No dilated bowel to suggest bowel obstruction. No abnormal mass or calcification is seen. The lung bases are clear. 04/20/244 Date cc: Lloyd Thomas DO; WILBERTO Andrews * Signed ADDENDUM by Dr. Sho Milton MD on 04/20/24 at 2244 RAD/Abd Decub and/or Erect(Portabl IMPRESSION: Findings suspicious for pneumoperitoneum. CT abdomen and pelvis recommended. N.B. : The above Results were Read Back by Sho Milton MD to Lloyd Thomas MD, and understanding confirmed on 04/20/2024 22:49:31 (ET). Electronically Signed: Sho Milton MD at 22:44 EDT , 04/20/24 9446 Date cc: Lloyd Thomas DO; WILBERTO Andrews * Signed We are attempting to reach an attending provider to discuss findings. An addendum with communication details will be sent when the communication is complete. [id number] INDICATION: constipation EXAMINATION/TECHNIQUE: X-RAY - XR Abdomen W/ Decub and/or Erect Views COMPARISON: No relevant prior comparison study available FINDINGS: AP supine and upright views. There is lucency beneath the diaphragm on the upright view suspicious for free air. Detail is relatively limited by the overlying soft tissues. Paucity of bowel gas in the abdomen with nonspecific fluid levels. No dilated bowel to suggest bowel obstruction. No abnormal mass or calcification is seen. The lung bases are clear. RAD/Abd Decub and/or Erect(Portabl IMPRESSION: Findings suspicious for pneumoperitoneum. CT abdomen and pelvis recommended. Electronically Signed: Sho Milton MD at 22:44 EDT , CC: Lloyd Thomas DO; WILBERTO Andrews Payroll Coordinator: Signed Normal [facility] Basic Metabolic Profile (BMP )on 04-20-2024 BUN/CRE 11.8 RATIO Normal 06-20 [facility] Comment on above: Performed By: #### L 100.0500, BTSPAT, L501.5200, L500.4050 #### [facility] [address] [place] [place], [address] CA,Total 9.0 mg/dL Normal 8.5-10.1 [facility] Comment on above: Performed By: #### L 100.0500, BTSPAT, L501.5200, L500.4050 #### [facility] [address] [place], [address] Chloride [Moles/Vol] 109 mmol/L High 98-107 [facility] Comment on above: Performed By: #### L 100.0500, BTSPAT, L501.5200, L500.4050 #### [facility] [address] [place], [address] CO2 [Moles/Vol] 28.0 mmol/L Normal 21.0-32.0 [facility] Comment on above: Performed By: #### L 100.0500, BTSPAT, L501.5200, L500.4050 #### [facility] [address] [place], [address] Creatinine [Mass/Vol] 0.85 mg/dL Normal 0.55-1.02 [facility] Comment on above: Result Comment: The validity of the calculated GFR GFRAA in patients over 70 years has not been determined. Clinical correlation is essential. Performed By: #### L 100.0500, BTSPAT, L501.5200, L500.4050 #### [facility] [address] [place], [address] ECRCL 89.63 ml/min Normal [facility] Comment on above: Performed By: #### L 100.0500, BTSPAT, L501.5200, L500.4050 #### [facility] [address] [place], [address] EST GFR - AA 94 mL/min Normal >60 [facility] Comment on above: Result Comment: Afri can Vietnamese GFR Calc Performed By: #### L 100.0500, BTSPAT, L501.5200, L500.4050 #### [facility] [address] [place], [address] GAP 5 Normal 5-15 [facility] Comment on above: Performed By: #### L 100.0500, BTSPAT, L501.5200, L500.4050 #### [facility] [address] [place], [address] GFR/1.73 sq M.predicted among non-blacks MDRD (S/P/Bld) [Vol rate/Area] 78 mL/min/{1.73_m2} Normal >60 [facility] Comment on above: Result Comment: Non- GFR Calc Performed By: #### L 100.0500, BTSPAT, L501.5200, L500.4050 #### [facility] [address] [place], [address] Glucose [Mass/Vol] 151 mg/dL High 74-106 [facility] Comment on above: Result Comment: Fast ing Glucose result greater than or equal to 126 mg/dL suggests DIABETES MELLITUS per A.D.A. criteria. Performed By: #### L 100.0500, BTSPAT, L501.5200, L500.4050 #### [facility] [address] [place], [id number] Potassium [Moles/Vol] 3.6 mmol/L Normal 3.5-5.1 [facility] Comment on above: Performed By: #### L 100.0500, BTSPAT, L501.5200, L500.4050 #### [facility] [address] [place], [address] Sodium [Moles/Vol] 142 mmol/L Normal 136-145 [facility] Comment on above: Performed By: #### L 100.0500, BTSPAT, L501.5200, L500.4050 #### [facility] [address] [place], [address] Urea nitrogen [Mass/Vol] 10 mg/dL Normal 7-18 [facility] Comment on above: Performed By: #### L 100.0500, BTSPAT, L501.5200, L500.4050 #### [facility] [address] [place], [address] CBC W/Diff, Automatedon 08-2 0-4 Absolute Lymph 4.42 X10 3/uL Normal 0.83-4.51 [facility] Comment on above: Performed By: #### L 100.0500, BTSPAT, L501.5200, L500.4050 #### [facility] [address] [place], [address] Absolute Neut 5.9 X10 3/uL Normal 2.0-7.7 [facility] Comment on above: Performed By: #### L 100.0500, BTSPAT, L501.5200, L500.4050 #### [facility] [address] [place], [address] Basophils/100 WBC (Bld) 0.6 % Normal 0-1 [facility] Comment on above: Performed By: #### L 100.0500, BTSPAT, L501.5200, L500.4050 #### [facility] [address] [place], [address] Eosinophils/100 WBC (Bld) 3.1 % Normal 0-5 [facility] Comment on above: Performed By: #### L 100.0500, BTSPAT, L501.5200, L500.4050 #### [facility] [address] [place], [address] Erythrocyte distribution width (RBC) [Ratio] 12.2 % Normal 11.6-14.6 [facility] Comment on above: Performed By: #### L 100.0500, BTSPAT, L501.5200, L500.4050 #### [facility] [address] [place], [address] Hematocrit (Bld) [Volume fraction] 39.1 % Normal 37-47 [facility] Comment on above: Performed By: #### L 100.0500, BTSPAT, L501.5200, L500.4050 #### [facility] [address] [place], [address] Hemoglobin (Bld) [Mass/Vol] 12.6 g/dL Normal 12.0-15.0 [facility] Comment on above: Performed By: #### L 100.0500, BTSPAT, L501.5200, L500.4050 #### [facility] [address] [place], [address] IG% 0.300 Normal 0.0-0.9 [facility] Comment on above: Result Comment: IG% - Immature Granulocytes (promyelocytes, myelocytes and metamyelocytes) > 1% indicates that a LEFT SHIFT is Present. Performed By: #### L 100.0500, BTSPAT, L501.5200, L500.4050 #### [facility] [address] [place], [id number] Lymphocytes/100 WBC (Bld) 38.6 % Normal 19-41 [facility] Comment on above: Performed By: #### L 100.0500, BTSPAT, L501.5200, L500.4050 #### [facility] [address] [place], [address] MCH (RBC) [Entitic mass] 30.7 pg Normal 27.0-32.0 [facility] Comment on above: Performed By: #### L 100.0500, BTSPAT, L501.5200, L500.4050 #### [facility] [address] [place], [address] MCHC (RBC) [Mass/Vol] 32.2 g/dL Normal 32-36 [facility] Comment on above: Performed By: #### L 100.0500, BTSPAT, L501.5200, L500.4050 #### [facility] [address] [place], [address] MCV (RBC) [Entitic vol] 95.1 fL Normal 81-99 [facility] Comment on above: Performed By: #### L 100.0500, BTSPAT, L501.5200, L500.4050 #### [facility] [address] [place], [address] Monocytes/100 WBC (Bld) 5.7 % Normal 0-10 [facility] Comment on above: Performed By: #### L 100.0500, BTSPAT, L501.5200, L500.4050 #### [facility] [address] [place], [address] Neutrophils/100 WBC (Bld) 51.7 % Normal 47-70 [facility] Comment on above: Performed By: #### L 100.0500, BTSPAT, L501.5200, L500.4050 #### [facility] [address] [place], [address] Nucleated RBC (Bld) [#/Vol] 0 10*3/uL Normal 0-5 [facility] Comment on above: Performed By: #### L 100.0500, BTSPAT, L501.5200, L500.4050 #### [facility] [address] [place], [address] Platelet mean volume (Bld) [Entitic vol] 10.9 fL Normal 6.2-12.0 [facility] Comment on above: Performed By: #### L 100.0500, BTSPAT, L501.5200, L500.4050 #### [facility] [address] [place], [address] Platelets (Bld) [#/Vol] 284 10*3/uL Normal 150-450 [facility] Comment on above: Performed By: #### L 100.0500, BTSPAT, L501.5200, L500.4050 #### [facility] [address] [place], [address] RBC (Bld) [#/Vol] 4.11 10*6/uL Low 4.2-5.4 [facility] Comment on above: Performed By: #### L 100.0500, BTSPAT, L501.5200, L500.4050 #### [facility] [address] [place], [address] RDW SD 42.2 fl Normal 35.1-43.9 [facility] Comment on above: Performed By: #### L 100.0500, BTSPAT, L501.5200, L500.4050 #### [facility] [address] [place], [address] WBC (Bld) [#/Vol] 11.4 10*3/uL High 4.4-11.0 [facility] Comment on above: Performed By: #### L 100.0500, BTSPAT, L501.5200, L500.4050 #### [facility] [address] [place], [address] Magnesiumon 04-20-2024 Magnesium [Mass/Vol] 1.6 mg/dL Normal 1.6-2.6 [facility] Comment on above: Performed By: #### L 100.0500, BTSPAT, L501.5200, L500.4050 #### [facility] [address], [address] Bedside Glucoseon 04-15-2024 FINGERSTICK GLU 155 mg/dL High 74-106 [facility] Comment on above: Result Comment: ISABELLA HARRIS OF PATIENT CARE PER NURSING PROTOCOL Performed By: #### L 100.0500, BTSPAT, L501.5200, L500.4050 #### [facility] [address], [address] Discharge Instructionon 04-01 Discharge Instruction [facility] Medical Records Department [address] [place] [address] Instructions for Home/Discharge Instructions 04/15/24 1327 MR#: [id number] Acct: [id number] Name: ANA HERNANDEZ Rep #: [id number] : 1980 44 From: Zheng Luna DO PCP: WILBERTO Andrews [place] [facility] [place] Instructions Diet Discharge Diet: No restrictions Activity Discharge Activity: May Drive (once you are more than 24 hours out from surgery) and May Shower (once you are more than 24 hours out from surgery) May resume sexual activity in: 1-2 weeks (nothing in the vagina and no soaking in water) Ice area for (Minutes): 14 Weight Bearing Status: Weight bearing as tolerated Lifting Restrictions: nothing greater than 15 pounds through the weekend Dressing / Incision Call your doctor if your incision/area has: Continuous Slow Oozing, Sudden Increased Bleeding, Increased Pain/ Swelling, Increased Redness, Foul Smelling Discharge and Swelling at the incision site Call your doctor if you observe: Fever of 101 or Higher, Coldness, Increased Pain, Numbness or Tingling, Change in Color, Inability to urinate, Inability to have a bowel movement, Using more than 1 pad per hour, Shortness of breath, Dizziness, Fainting spells, Swelling in the ankles, Chest pain, Prolonged hiccupping, Increased palpitations (irregular heartbeat), Calf discomfort and Uncontrolled pain Suture Line Care: Avoid Pulling/Pushing and Avoid Pinching/Bending Remove Dressing in: leave in place till F/U (the glue will peel up over time) Cleanse incision/area with: Soap Water Follow Up Care Please Follow Up With: Zheng Luna DO When: 1-2 weeks Test Results: Test results from this visit will be discussed in further detail at your follow-up appointment, if applicable. Discharge Plan Admission Primary Reason for Your Visit: surgery Attending Provider: Zheng Luna Primary Care Provider: Albert Ferrer Instructions Print Language: Zimbabwean Discharge Orders/Prescriptions Prescriptions: New oxycodone-acetaminophen [Percocet] 5-325 mg tablet 1 tab PO Q6H PRN (Reason: pain) 7 Days Qty: 10 0RF Continued multivitamin tablet 1 tab PO DAILY metformin 850 mg tablet 1,000 mg PO BID amitriptyline 50 mg tablet 100 mg PO QHS omega-3 fatty acids [Fish Oil Concentrate] 1,000 mg capsule 1,000 mg PO BID Nurtec ODT 75 mg tablet,disintegrating 75 mg PO DAILY PRN (Reason: migraine headache) Qty: 16 9RF topiramate 100 mg tablet 100 mg PO BID Qty: 60 9RF tizanidine 4 MG tablet 4 mg PO BID Patient Comments: take 1 tablet by mouth twice a day if needed buspirone 30 MG tablet 30 mg PO BID Patient Comments: take 1 tablet by mouth twice a day acetaminophen 650 MG/20 ML solution 500 mg PO Q4H PRN PRN (Reason: Headache/Temp>99F) 0RF ibuprofen 600 MG tablet 600 mg PO 4X/DAY PRN (Reason: Headache) Qty: 1 0RF simvastatin 40 mg tablet 40 mg PO QHS Patient Comments: take 1 tablet by mouth at bedtime venlafaxine 37.5 mg capsule,extended release 24hr 37.5 mg PO DAILY propranolol 20 mg tablet 20 mg PO Q12H Other Ambulatory Orders: 12 Lead EKG (Routine) Timeframe: [id number] Location: None Selected Ordered By: Dr. Jostin Daniels Referrals / Follow Up: Albert Ferrer PA [Primary Care Provider] - Disposition Disposition (needs filled in before D/C Order can be placed): Home, Self Care 04/15/24 1328 Zheng Luna DO CC: WILBERTO Andrews Signed [facility] MR/POSTOP.ANE 04-15-2024 MR/POSTOP.[facility] Medical Records Department [address] [place] [address] Anesthesia Postop Eval I 04/15/24 1446 MR#: [id number] Acct: [id number] Name: DAVIDSARWAT NoblesTAPAN Tracy Rep #: [id number] : 1980 44 From: Phani Bush CRNA PCP: WILBERTO Andrews [place] [facility] [place] Race[place] C Location: [place] [address] Anesthesia: Postop Eval I Current Vital Signs Temperature: 97 F Pulse Rate: 81 Blood Pressure: 118/79 Respiratory Rate: 14 Pulse Ox: 98 Oxygen Delivery Method: Room Air Assessment Airway patent: Yes Spontaneous unlabored respirations: Yes Mental status: Awake and Calm nausea: No Vomiting: No Anesthesia Complication: No Fluid Hydration Crystalloid volume administer (ml): 1,000 Total IV fluid infused: 1,000 Progress Note Anesthesia document: Postop Eval 1 completed: Yes 04/15/24 1447 Date Phani Bush CRNA Cosigner Signature: Date CC: Signed [facility] MR/[id number] 04-15-2024 MR/POSTOPAN2 [facility] Medical Records Department [address] [place] [address] Anesthesia Postop Eval II 04/15/24 1512 MR#: [id number] Acct: [id number] Name: ANA HERNANDEZ Rep #: [id number] : 1980 44 From: Eyad Mark MD PCP: WILBERTO Andrews Status:REG [facility] Y Race: C Location: [place] [address]- Anesthesia Postop Eval I Sum Postop Eval Completion status Anesthesia document: Postop Eval 1 completed: Yes Anesthesia Postop Eval I Summary Anesthesia Postop Eval I Summary: Anesthesia Postop Eval I: Assessment Summary Airway patent Yes 04/15/24 14:47 [email or web address] [email or web address] Spontaneous unlabored Yes 04/15/24 14:47 BLEACHER [email or web address] respirations Mental status Awake,Calm 04/15/24 14:47 [email or web address] [email or web address] nausea No 04/15/24 14:47 BLEACHER [email or web address].JBLOU Vomiting No 04/15/24 14:47 BLEACHER [email or web address] Anesthesia Postop Eval I: Fluid Summary Crystalloid volume administer 1,000 04/15/24 14:47 BLEACHER [email or web address].JBLOU (ml) Colloids volume administered ( ml) Blood Product volume administered (ml) Total IV fluid infused 1,000 04/15/24 14:47 [email or web address] [email or web address].JBLOU Anesthesia Postop Eval I: Summary Notes Anesthesia Complication No 04/15/24 14:47 [email or web address] [email or web address].JBLOU Anesthesia Complication Comment: Post-operative progress note Anesthesia: Postop Eval II Evaluation Mental status: Awake and Calm Pain Level: 2 nausea: No Vomiting: No Complications Anesthesia Complication: No 04/15/24 1514 Date Eyad Mark MD Cosigner Signature: Date CC: Signed Normal [facility] Operative Reporton 4 Operative Report [facility] Medical Records Department [address] [address] Operative Report 04/15/24 1337 MR#: [id number] Acct: [id number] Name: ANA HERNANDEZ Rep #: [id number] : 1980 44 From: Zheng Luna DO PCP: WILBERTO Andrews Status:[facility] Location: [place] [address] Problems Associated Problem List Diagnoses (1) Menorrhagia: (2) DUB (dysfunctional uterine bleeding): Report of Operation Date of Procedure: 04/15/24 Pre-Operative Diagnosis: Menorrhagia, DUB Post-Operative Diagnosis: As above Surgery/Procedure Performed:: Diagnostic laparoscopy Description of Surgical Findings:: Uterus sounded to 10 cm. The uterus was completely adhered to the anterior abdominal wall. The left pelvis side wall contained significant adhesive disease and unable to identify adnexa and ureter. The right ovary and fallopian tube appeared normal. The posterior cul de sac appeared normal. No obvious endometriosis was noted. Surgeon: Zheng Luna senior datastage developer: Rhona Lamb Type of Anesthesia: General Special Medications: None Specimen's removed: None Drains: Sierra Estimated Blood Loss (mL): < 20 Fluids Replaced: See anesthesia record Description of Procedure: The patient was taken to the operating room where general anesthesia was induced. She was prepped and draped in the dorsal lithotomy position using yellow fin stirrups. From below a weighted speculum was placed to expose the cervix. The anterior lip of the cervix was grasped with a single- tooth tenaculum. The cervix was serially dilated to accommodate the uterine manipulator. The single-tooth tenaculum and weighted speculum were removed. Gloves were changed and attention was turned to the abdominal portion of the procedure. An infraumbilical incision was made after injection with local to accommodate a 5 mm port. The 5 mm port was placed under direct visualization using the laparoscope. Once confirmed intraperitoneal, CO2 insufflation was initiated. No injuries were noted upon entry. Findings were noted as above. The uterus was significantly adhered to the anterior abdominal wall, and bladder was not able to be well- appreciated. The left adnexa was encased in adhesive disease along the left pelvic sidewall. The right fallopian tube and right ovary were noted. The posterior cul-de-sac was inspected and normal- appearing. No obvious endometriosis was noted. The decision was made to end the procedure given significant adhesive disease. The laparoscope was removed and the abdomen was exsufflated. The skin was closed with 4 Monocryl and glue. The uterine manipulator was removed from the vagina. The vaginal sweep was performed. Intra, sharp, sponge counts were correct. The patient was taken to recovery in stable condition. Dr. Morales was present for the entire case and assisted with draping the patient, placing the uterine manipulator, inspection during diagnostic laparoscopy, and removal of vaginal instruments and uterine manipulator. Grafts/Implants Used: None Procedure Start Time: 13:01 Procedure Stop Time: 13:21 Complications None Admit VTE Documentation VTE Present on Admission: No VTE Mechan Device Prophylaxis: SCD's 04/15/24 1346 Cosigner Signature (if applicable): CC: Dr. Zheng Luna DO; WILBERTO Andrews Signed Normal [facility] ,Urineon 04-15-2024 Beta HCG ( test) Ql (U) Negative Normal [facility] Comment on above: Result Comment: Very dilute urine specimens, as indicated by a low specific gravity, may not contain telemarketing representative levels of hCG. If is still suspected, a first morning urine specimen should be collected 48 hours later and tested. Performed By: #### L 100.0500, BTSPAT, L501.5200, L500.4050 #### [facility] [address], [address] [facility] 04-14-2024 [facility] Telephone (OBGYWM) -------- ANA HERNANDEZ ([id number]) 1980 F Date Time Provider Department 04/14/24 ZHENG LUNA During your visit today, we recorded the following information about you: Myriam Wisdom RN 04/14/2024 10:00 AM Signed [facility] pharmacist, Douglas called. Patient is scheduled for [facility], vania martinez, Cystoscopy with SW tomorrow. Patient has a PCN allergy with hives noted. ordered Cefazolin 2 gram. Pharmacist asking if this needs changed. He can be contacted at [phone]. SADIQ Son Rebecca L, MD 04/14/2024 11:20 AM Signed Sent text to or they can page her tomorrow. MD Tavon Singh Tara, RN 04/15/2024 10:36 AM Addendum [facility] Pharmacist calling back as Pt has surgery scheduled for today at 12:30pm. SADIQ Sood Sara, MD 04/15/2024 10:58 AM Signed Ok for Millicent Trujillo LPN 04/15/2024 11:02 AM Signed Pharmacist notified Allergies As of Date: 04/14/2024 Noted Allergy Reaction AVELOX (MOXIFLOXACIN HCL) 08/10/2009 2 - Rash DOXY (DOXYCYCLINE) 06/09/2009 8 - GI Upset PENICILLINS 10/17/2005 14 - Other: See Comments Comments: Mother does not recall what the reaction was and was told that she cannot take it PROZAC (FLUOXETINE HCL) 05/08/2011 14 - Other: See Comments Comments: Mother had side effects from this Date Reviewed: 04/02/2024 Reviewed by: Zheng Luna MD - Fully Assessed Reason for Visit: Medication Problem [65] Prescriptions as of 04/15/2024 - magnesium oxide (MAG-OX) 400 mg (241.3 mg magnesium) tablet Take 1 tablet by mouth two times a day. - metFORMIN (GLUCOPHAGE) 1,000 mg tablet Take 1 tablet by mouth two times a day with meals. - venlafaxine ER (EFFEXOR XR) 37.5 mg 24 hr capsule Take 1 capsule by mouth once daily. - norethindrone (AYGESTIN) 5 mg tablet Take 1 tablet by mouth once daily. - amitriptyline (ELAVIL) 50 mg tablet Take 1-2 tablets by mouth daily at bedtime. - busPIRone HCl 30 mg tablet Take 1 tablet by mouth two times a day. - simvastatin (ZOCOR) 40 mg tablet Take 1 tablet by mouth daily at bedtime. - topiramate (TOPAMAX) 50 mg tablet Take 1 tablet by mouth two times a day. - propranolol (INDERAL) 40 mg tablet Take 0.5 tablets by mouth two times a day. - ZINC ORAL Take by mouth. - cholecalciferol, vitamin D3, (VITAMIN D3 ORAL) Take by mouth. - blood-glucose meter,mobile dev (HOLLY BLOOD GLUCOSE MONITOR) lyn - albuterol HFA (PROAIR HFA) 90 mcg/actuation inhaler Inhale 2 Puffs as instructed every 4 hours as needed. - omega-3 fatty acids (FISH OIL CONCENTRATE) 1,000 mg cap Take 1,000 mg by mouth once daily. - HYDROcodone-acetaminophe n (NORCO) 5-325 mg per tablet Take 5-325 tablets by mouth twice daily as needed. - multivit-minerals/ferrou s fum (MULTI VITAMIN ORAL) Take by mouth. - TIZANIDINE HCL (ZANAFLEX ORAL) Take by mouth twice daily. Problem List As Of Date 04/14/2024 Noted Resolved CHOLELITHIASIS NOS [K80.20] 10/17/2005 05/23/2006 Mild intermittent asthma without complication [*05/23/2006 03/30/2018 Common migraine [G43.009] 05/23/2006 Abnormal maternal glucose tolerance, antepartum*05/23/2006 03/30/2018 Family history of diabetes mellitus [Z83.3] 05/23/2006 03/30/2018 Polycystic ovaries [E28.2] 05/23/2006 Obesity due to excess calories [E66.09] 05/23/2006 Calculus of ureter [N20.1] 05/23/2006 03/30/2018 Lumbago [M54.50] 05/23/2006 Depressive disorder [F32.A] 08/20/2006 Goiter, euthyroid [E04.9] 09/28/2006 Fatty Liver [K76.0] 06/05/2009 Hyperlipidemia [E78.5] 06/05/2009 Diabetes mellitus type 2, controlled, without c*06/05/2009 Tobacco use disorder [F17.200] 06/05/2009 Porokeratosis [Q82.8] 02/12/2011 Cervicalgia [M54.2] 01/14/2013 Callus of foot [L84] 03/30/2018 Displacement of lumbar intervertebral disc with*08/04/2014 Sprain of lumbar region [S33.5XXA] 08/04/2014 03/30/2018 RLS (restless legs syndrome) [G25.81] 03/30/2018 Transition of care performed with sharing of cl*11/29/2018 08/23/2021 Hospital discharge follow-up [Z09] 08/22/2021 Menorrhagia with irregular cycle [N92.1] 12/16/2023 Dysmenorrhea [N94.6] 12/16/2023 Encounter Status:Closed by ALMITA SNYDER on 04/14/24 Normal [facility] 12 Lead EKGon 04-06-2024 12 Lead EKG [facility] Cardiovascular Services [address] [place] [address] 12 Lead EKG 04/06/24 0812 MR#: [id number] Acct: [id number] Name: ANA HERNANDEZ Rep #: [id number] : 1980 44 From: Vincent Choi MD Attending Dr: Dr. Zheng Luna, DO [place] [facility]: Jostin Daniels MD Date: 04/06/24 [place] [facility] Sex: F C Admitted: Test Reason : PREOP Blood Pressure : / mmHG Vent. Rate : 055 BPM Atrial Rate : 055 BPM P-R Int : 178 ms QRS Dur : 080 ms QT Int : 460 ms P-R-T Axes : 031 026 051 degrees QTc Int : 440 ms Sinus bradycardia Otherwise normal ECG Confirmed by Vincent Choi ([id number]), assignment editor RASHAD ALCANTARA ([id number]) on 04/07/2024 8:59:45 AM Referred By: Zheng Luna Confirmed By:Vincent Choi 04/07/24 0859 Date Vincent Choi MD CC: Dr. Jostin Daniels MD; Dr. Zheng Luna DO; WILBERTO Andrews Signed Normal [facility] CBC-Complete Blood Cnt No Di ffon 04-06-2024 Erythrocyte distribution width (RBC) [Ratio] 12.3 % Normal 11.6-14.6 [facility] Comment on above: Performed By: #### L 100.0500, BTSPAT, L501.5200, L500.4050 #### [facility] [address] [place], [address] Hematocrit (Bld) [Volume fraction] 38.7 % Normal 37-47 [facility] Comment on above: Performed By: #### L 100.0500, BTSPAT, L501.5200, L500.4050 #### [facility] [address] [place] [place], [address] Hemoglobin (Bld) [Mass/Vol] 12.3 g/dL Normal 12.0-15.0 [facility] Comment on above: Performed By: #### L 100.0500, BTSPAT, L501.5200, L500.4050 #### [facility] [address] [place], [address] MCH (RBC) [Entitic mass] 30.4 pg Normal 27.0-32.0 [facility] Comment on above: Performed By: #### L 100.0500, BTSPAT, L501.5200, L500.4050 #### [facility] [address] [place], [address] MCHC (RBC) [Mass/Vol] 31.8 g/dL Low 32-36 [facility] Comment on above: Performed By: #### L 100.0500, BTSPAT, L501.5200, L500.4050 #### [facility] [address] [place], [address] MCV (RBC) [Entitic vol] 95.6 fL Normal 81-99 [facility] Comment on above: Performed By: #### L 100.0500, BTSPAT, L501.5200, L500.4050 #### [facility] [address] [place], [address] Platelet mean volume (Bld) [Entitic vol] 11.4 fL Normal 6.2-12.0 [facility] Comment on above: Performed By: #### L 100.0500, BTSPAT, L501.5200, L500.4050 #### [facility] [address] [place], [address] Platelets (Bld) [#/Vol] 267 10*3/uL Normal 150-450 [facility] Comment on above: Performed By: #### L 100.0500, BTSPAT, L501.5200, L500.4050 #### [facility] [address] [place], [id number] RBC (Bld) [#/Vol] 4.05 10*6/uL Low 4.2-5.4 [facility] Comment on above: Performed By: #### L 100.0500, BTSPAT, L501.5200, L500.4050 #### [facility] [address] [place] [place], [address] RDW SD 43.1 fl Normal 35.1-43.9 [facility] Comment on above: Performed By: #### L 100.0500, BTSPAT, L501.5200, L500.4050 #### [facility] [address] [place], [address] WBC (Bld) [#/Vol] 12.3 10*3/uL High 4.4-11.0 [facility] Comment on above: Performed By: #### L 100.0500, BTSPAT, L501.5200, L500.4050 #### [facility] [address] [place], [address] Comprehensive Metabolic Prof ilon 04-06-2024 Albumin [Mass/Vol] 3.2 g/dL Normal 3.2-5.0 [facility] Comment on above: Performed By: #### L 100.0500, BTSPAT, L501.5200, L500.4050 #### [facility] [address] [place], [id number] Albumin/Globulin [Mass ratio] 0.8 {ratio} Low 0.9-2.4 [facility] Comment on above: Performed By: #### L 100.0500, BTSPAT, L501.5200, L500.4050 #### [facility] [address] [place] [place], [id number] ALK P 70 U/L Normal 45-117 [facility] Comment on above: Performed By: #### L 100.0500, BTSPAT, L501.5200, L500.4050 #### [facility] [address] [place], [id number] ALT [Catalytic activity/Vol] 64 U/L High 13-56 [facility] Comment on above: Performed By: #### L 100.0500, BTSPAT, L501.5200, L500.4050 #### [facility] [address] [place], [id number] AST [Catalytic activity/Vol] 42 U/L High 15-37 [facility] Comment on above: Performed By: #### L 100.0500, BTSPAT, L501.5200, L500.4050 #### [facility] [address] [place], [id number] Bilirubin [Mass/Vol] 0.20 mg/dL Normal 0.20-1.00 [facility] Comment on above: Result Comment: For patients on eltrombopag therapy, use of Dimension [place] TBIL is not recommended. Performed By: #### L 100.0500, BTSPAT, L501.5200, L500.4050 #### [facility] [address] [place] [place], [id number] BUN/CRE 8.6 RATIO Low 10-20 [facility] Comment on above: Performed By: #### L 100.0500, BTSPAT, L501.5200, L500.4050 #### [facility] [address] [place] [place], [id number] CA,Total 8.6 mg/dL Normal 8.5-10.1 [facility] Comment on above: Performed By: #### L 100.0500, BTSPAT, L501.5200, L500.4050 #### [facility] [address] [place], [address] Chloride [Moles/Vol] 109 mmol/L High 98-107 [facility] Comment on above: Performed By: #### L 100.0500, BTSPAT, L501.5200, L500.4050 #### [facility] [address] [place], [address] CO2 [Moles/Vol] 27.0 mmol/L Normal 21.0-32.0 [facility] Comment on above: Performed By: #### L 100.0500, BTSPAT, L501.5200, L500.4050 #### [facility] [address] [place], [address] Creatinine [Mass/Vol] 1.05 mg/dL High 0.55-1.02 [facility] Comment on above: Result Comment: The validity of the calculated GFR GFRAA in patients over 70 years has not been determined. Clinical correlation is essential. Performed By: #### L 100.0500, BTSPAT, L501.5200, L500.4050 #### [facility] [address] [place], [id number] EST GFR - AA 74 mL/min Normal >60 [facility] Comment on above: Result Comment: Afri can Vietnamese GFR Calc Performed By: #### L 100.0500, BTSPAT, L501.5200, L500.4050 #### [facility] [address] [place], [address] GAP 6 Normal 5-15 [facility] Comment on above: Performed By: #### L 100.0500, BTSPAT, L501.5200, L500.4050 #### [facility] [address] [place], [address] GFR/1.73 sq M.predicted among non-blacks MDRD (S/P/Bld) [Vol rate/Area] 61 mL/min/{1.73_m2} Normal >60 [facility] Comment on above: Result Comment: Non- GFR Calc Performed By: #### L 100.0500, BTSPAT, L501.5200, L500.4050 #### [facility] [address] [place], [address] Globulin (S) [Mass/Vol] 4.0 g/dL Normal 2.2-4.2 [facility] Comment on above: Performed By: #### L 100.0500, BTSPAT, L501.5200, L500.4050 #### [facility] [address] [place], [address] Glucose [Mass/Vol] 119 mg/dL High 74-106 [facility] Comment on above: Result Comment: Fast ing Glucose result from 100 to 125 mg/dL suggests IMPAIRED HOMEOSTASIS per A.D.A. criteria. Performed By: #### L 100.0500, BTSPAT, L501.5200, L500.4050 #### [facility] [address] [place], [address] Potassium [Moles/Vol] 3.4 mmol/L Low 3.5-5.1 [facility] Comment on above: Performed By: #### L 100.0500, BTSPAT, L501.5200, L500.4050 #### [facility] [address] [place], [address] Sodium [Moles/Vol] 142 mmol/L Normal 136-145 [facility] Comment on above: Performed By: #### L 100.0500, BTSPAT, L501.5200, L500.4050 #### [facility] [address] [place], [address] T PROT 7.2 g/dL Normal 6.4-8.2 [facility] Comment on above: Performed By: #### L 100.0500, BTSPAT, L501.5200, L500.4050 #### [facility] [address] [place], [address] Urea nitrogen [Mass/Vol] 9 mg/dL Normal 7-18 [facility] Comment on above: Performed By: #### L 100.0500, BTSPAT, L501.5200, L500.4050 #### [facility] [address] [place], [address] HBA1C (OUTSIDE)Ordered By: Demarcus Watson on 04-06-2024 [facility] Hemoglobin [id number] By: Heidi Watson on 04-06-2024 HbA1c (Bld) [Mass fraction] 6.9 % High 3.8-5.6 [facility] Comment on above: Result Comment: Norm al < 5.7 % Prediabetic 5.7 - 6.4 % Diabetic >or= 6.5 % Please note range changes. Performed By: #### L 100.0500, BTSPAT, L501.5200, L500.4050 #### [facility] [address] [place], [address] Magnesiumon 04-06-2024 Magnesium [Mass/Vol] 1.9 mg/dL Normal 1.6-2.6 [facility] Comment on above: Performed By: #### L 100.0500, BTSPAT, L501.5200, L500.4050 #### [facility] [address] [place], [address] Type AND Screen - PAT ONLYon 04-06-2024 ABO and Rh group Nom (Bld) Blood group A Rh(D) positive Normal [facility] Comment on above: Order Comment: Surge ry Date: 04/15/24 Reason for Laboratory Test PREOP [id number] No N N S HYSTERECTOMY Performed By: #### L 100.0500, BTSPAT, L501.5200, L500.4050 #### [facility] [address] [place], [address] CNOVon 04-02-2024 CNOV Office Visit (OBGYWM ) -------- ANA HERNANDEZ ([id number]) 1980 F Date Time Provider Department 04/02/24 9:20 AM ZHENG LUNA OBGYWAlbert During your visit today, we recorded the following information about you: Pulse Respiration Blood pressure Weight 86/minute 16/minute 116/78 91.6 kg Height 1.581 m Zheng Luna MD 04/02/2024 12:27 PM Signed DATE OF SERVICE: April 02, 2024 PROBLEM: DUB, menorrhagia DIAGNOSIS: DUB, menorrhagia PAST SURGICAL HISTORY: PAST SURGICAL HISTORY No date: DELIVERY ONLY Comment: , low cervical 08/28/2018: COLONOSCOPY Comment: hemorrhoid banding No date: LAPAROSCOPY SURG CHOLECYSTECTOMY Comment: Cholecystectomy, lap No date: MYRINGOTOMY ASPIRAND/EUSTACHIAN TUBE NFLTJ ANES Comment: Myringotomy/tubes No date: PAST SURGICAL HISTORY OF Comment: stents in ureter for kidney stones 08/04/14: PAST SURGICAL HISTORY OF Comment: lumbar pain injections. No date: TONSILLECTOMY PRIMARY/SECONDARY Comment: Tonsillectomy PAST MEDICAL HISTORY: PAST MEDICAL HISTORY 05/23/2006: ABN GLUCOSE-ANTEPARTUM 05/23/2006: ASTHMA UNSPECIFIED 05/23/2006: Calculus of ureter No date: Callus of foot No date: Callus of foot 05/23/2006: COMMON MIGRAINE W/O MENTN INTRACT 08/20/2006: DEPRESSIVE DISORDER NEC Comment: 06/09 -Stable, no meds 05/23/2006: Family history of diabetes mellitus Comment: Mother, Father, Maternal Grandparents 05/23/2006: FAMILY HX DIABETES MELLITUS Comment: Mother, Father, Maternal Grandparents 06/05/2009: Fatty liver Comment: CT Scan 01/06, showed diffuse fatty liver. LFTs elevated in past, but 06/09 - normal 09/28/2006: GOITER NOS Comment: TSH normal 05/23/2006: Lumbago 05/23/2006: Mild intermittent asthma without complication Comment: Since age 11. No medication. Last attack > 10 years 05/23/2006: OBESITY NOS No date: Peripheral autonomic neuropathy due to diabetes mellitus (HCC) No date: PMH - PAST MEDICAL HISTORY OF Comment: kidney stones 05/23/2006: Polycystic ovaries 05/23/2006: Polycystic ovaries No date: Snoring 08/04/2014: Sprain of lumbar region 06/05/2009: Tobacco use disorder 06/05/2009: Type II or unspecified type diabetes mellitus without mention of complication, not stated as uncontrolled No date: Unspecified asthma(493.90) SUBJECTIVE: Pt report heavy menses and requests hysterectomy SOCIAL HISTORY: Social History Tobacco Use Smoking status: Former Packs/day: 0.30 Years: 3.00 Additional pack years: 0.00 Total pack years: 0.90 Types: Cigarettes Quit date: 09/10/2013 Years since quittin.5 Smokeless tobacco: Never Tobacco comments: uses E cigs Vaping Use Vaping Use: current everyday user Substances: Nicotine, Flavoring Devices: Refillable tank Substance Use Topics Alcohol use: No Drug use: No Allergies: Avelox [Moxifloxaci* Rash Doxy [Doxycycline] GI Upset Penicillins Other: See Comments Comment:Mother does not recall what the reaction was and was told that she cannot take it Prozac [Fluoxetine * Other: See Comments Comment:Mother had side effects from this Current Outpatient Medications on File Prior to Visit Medication Sig magnesium oxide (MAG-OX) 400 mg (241.3 mg magnesium) tablet Take 1 tablet by mouth two times a day. metFORMIN (GLUCOPHAGE) 1,000 mg tablet Take 1 tablet by mouth two times a day with meals. venlafaxine ER (EFFEXOR XR) 37.5 mg 24 hr capsule Take 1 capsule by mouth once daily. norethindrone (AYGESTIN) 5 mg tablet Take 1 tablet by mouth once daily. amitriptyline (ELAVIL) 50 mg tablet Take 1-2 tablets by mouth daily at bedtime. busPIRone HCl 30 mg tablet Take 1 tablet by mouth two times a day. simvastatin (ZOCOR) 40 mg tablet Take 1 tablet by mouth daily at bedtime. topiramate (TOPAMAX) 50 mg tablet Take 1 tablet by mouth two times a day. ZINC ORAL Take by mouth. cholecalciferol, vitamin D3, (VITAMIN D3 ORAL) Take by mouth. blood-glucose meter,mobile dev (i[employer]en BLOOD GLUCOSE MONITOR) lyn albuterol HFA (PROAIR HFA) 90 mcg/actuation inhaler Inhale 2 Puffs as instructed every 4 hours as needed. omega-3 fatty acids (FISH OIL CONCENTRATE) 1,000 mg cap Take 1,000 mg by mouth once daily. HYDROcodone-acetaminophe n (NORCO) 5-325 mg per tablet Take 5-325 tablets by mouth twice daily as needed. multivit-minerals/ferrou s fum (MULTI VITAMIN ORAL) Take by mouth. TIZANIDINE HCL (ZANAFLEX ORAL) Take by mouth twice daily. propranolol (INDERAL) 40 mg tablet Take 0.5 tablets by mouth two times a day. No current facility-administered medications on file prior to visit. Pelvic US: RESULT: Uterus: -Size: 10.4 x 4.4 x 6.2 cm -Orientation: Retroverted -Endometrial echo complex: Evaluation of the endometrium was adequate. No endometrial abnormality. The endometrial echo complex measured 0.5 cm. -Cervix: Trace fluid in the cervical canal. -Adenomyosis assessment: There are (more content not included)... Normal [facility] ANA HERNANDEZ ([id number]) 1980 F Date Time Provider Department 04/02/24 ZHENG LUNA During your visit today, we recorded the following information about you: Ricardo Mendez MA 04/02/2024 1:35 PM Signed Received patients [facility] paperwork for upcoming surgery. Completed and placed on providers desk for signature. MAXIMION Whatley Morgan, MA 04/08/2024 11:38 AM Signed [facility] paperwork is completed and has been faxed to employer. Patient notified. Ricardo Mendez MA Allergies As of Date: 04/02/2024 Noted Allergy Reaction AVELOX (MOXIFLOXACIN HCL) 08/10/2009 2 - Rash DOXY (DOXYCYCLINE) 06/09/2009 8 - GI Upset PENICILLINS 10/17/2005 14 - Other: See Comments Comments: Mother does not recall what the reaction was and was told that she cannot take it PROZAC (FLUOXETINE HCL) 05/08/2011 14 - Other: See Comments Comments: Mother had side effects from this Date Reviewed: 04/02/2024 Reviewed by: Zheng Luna MD - Fully Assessed Reason for Visit: [facility] Paperwork [4185] Prescriptions as of 04/08/2024 - magnesium oxide (MAG-OX) 400 mg (241.3 mg magnesium) tablet Take 1 tablet by mouth two times a day. - metFORMIN (GLUCOPHAGE) 1,000 mg tablet Take 1 tablet by mouth two times a day with meals. - venlafaxine ER (EFFEXOR XR) 37.5 mg 24 hr capsule Take 1 capsule by mouth once daily. - norethindrone (AYGESTIN) 5 mg tablet Take 1 tablet by mouth once daily. - amitriptyline (ELAVIL) 50 mg tablet Take 1-2 tablets by mouth daily at bedtime. - busPIRone HCl 30 mg tablet Take 1 tablet by mouth two times a day. - simvastatin (ZOCOR) 40 mg tablet Take 1 tablet by mouth daily at bedtime. - topiramate (TOPAMAX) 50 mg tablet Take 1 tablet by mouth two times a day. - propranolol (INDERAL) 40 mg tablet Take 0.5 tablets by mouth two times a day. - ZINC ORAL Take by mouth. - cholecalciferol, vitamin D3, (VITAMIN D3 ORAL) Take by mouth. - blood-glucose meter,mobile dev (HOLLY BLOOD GLUCOSE MONITOR) lyn - albuterol HFA (PROAIR HFA) 90 mcg/actuation inhaler Inhale 2 Puffs as instructed every 4 hours as needed. - omega-3 fatty acids (FISH OIL CONCENTRATE) 1,000 mg cap Take 1,000 mg by mouth once daily. - HYDROcodone-acetaminophe n (NORCO) 5-325 mg per tablet Take 5-325 tablets by mouth twice daily as needed. - multivit-minerals/ferrou s fum (MULTI VITAMIN ORAL) Take by mouth. - TIZANIDINE HCL (ZANAFLEX ORAL) Take by mouth twice daily. Problem List As Of Date 04/02/2024 Noted Resolved CHOLELITHIASIS NOS [K80.20] 10/17/2005 05/23/2006 Mild intermittent asthma without complication [*05/23/2006 03/30/2018 Common migraine [G43.009] 05/23/2006 Abnormal maternal glucose tolerance, antepartum*05/23/2006 03/30/2018 Family history of diabetes mellitus [Z83.3] 05/23/2006 03/30/2018 Polycystic ovaries [E28.2] 05/23/2006 Obesity due to excess calories [E66.09] 05/23/2006 Calculus of ureter [N20.1] 05/23/2006 03/30/2018 Lumbago [M54.50] 05/23/2006 Depressive disorder [F32.A] 08/20/2006 Goiter, euthyroid [E04.9] 09/28/2006 Fatty Liver [K76.0] 06/05/2009 Hyperlipidemia [E78.5] 06/05/2009 Diabetes mellitus type 2, controlled, without c*06/05/2009 Tobacco use disorder [F17.200] 06/05/2009 Porokeratosis [Q82.8] 02/12/2011 Cervicalgia [M54.2] 01/14/2013 Callus of foot [L84] 03/30/2018 Displacement of lumbar intervertebral disc with*08/04/2014 Sprain of lumbar region [S33.5XXA] 08/04/2014 03/30/2018 RLS (restless legs syndrome) [G25.81] 03/30/2018 Transition of care performed with sharing of cl*11/29/2018 08/23/2021 Hospital discharge follow-up [Z09] 08/22/2021 Menorrhagia with irregular cycle [N92.1] 12/16/2023 Dysmenorrhea [N94.6] 12/16/2023 Encounter Status:Closed by RICARDO MENDEZ on 04/08/24 Normal [facility] HISTORY PHYSICALon HISTORY PHYSICAL HNO ID: [id number] Author: ZHENG LUNA MD Service: ? Author Type: Physician Type: H&P Filed: 04/02/2024 12:27 Note Text: DATE OF SERVICE: April 02, 2024 PROBLEM: DUB, menorrhagia DIAGNOSIS: DUB, menorrhagia PAST SURGICAL HISTORY: PAST SURGICAL HISTORY No date: DELIVERY ONLY Comment: , low cervical 08/28/2018: COLONOSCOPY Comment: hemorrhoid banding No date: LAPAROSCOPY SURG CHOLECYSTECTOMY Comment: Cholecystectomy, lap No date: MYRINGOTOMY ASPIRAND/EUSTACHIAN TUBE NFLTJ ANES Comment: Myringotomy/tubes No date: PAST SURGICAL HISTORY OF Comment: stents in ureter for kidney stones 08/04/14: PAST SURGICAL HISTORY OF Comment: lumbar pain injections. No date: TONSILLECTOMY PRIMARY/SECONDARY Comment: Tonsillectomy PAST MEDICAL HISTORY: PAST MEDICAL HISTORY 05/23/2006: ABN GLUCOSE-ANTEPARTUM 05/23/2006: ASTHMA UNSPECIFIED 05/23/2006: Calculus of ureter No date: Callus of foot No date: Callus of foot 05/23/2006: COMMON MIGRAINE W/O MENTN INTRACT 08/20/2006: DEPRESSIVE DISORDER NEC Comment: 06/09 -Stable, no meds 05/23/2006: Family history of diabetes mellitus Comment: Mother, Father, Maternal Grandparents 05/23/2006: FAMILY HX DIABETES MELLITUS Comment: Mother, Father, Maternal Grandparents 06/05/2009: Fatty liver Comment: CT Scan 01/06, showed diffuse fatty liver. LFTs elevated in past, but 06/09 - normal 09/28/2006: GOITER NOS Comment: TSH normal 05/23/2006: Lumbago 05/23/2006: Mild intermittent asthma without complication Comment: Since age 11. No medication. Last attack > 10 years 05/23/2006: OBESITY NOS No date: Peripheral autonomic neuropathy due to diabetes mellitus (HCC) No date: PMH - PAST MEDICAL HISTORY OF Comment: kidney stones 05/23/2006: Polycystic ovaries 05/23/2006: Polycystic ovaries No date: Snoring 08/04/2014: Sprain of lumbar region 06/05/2009: Tobacco use disorder 06/05/2009: Type II or unspecified type diabetes mellitus without mention of complication, not stated as uncontrolled No date: Unspecified asthma(493.90) SUBJECTIVE: Pt report heavy menses and requests hysterectomy SOCIAL HISTORY: Social History Tobacco Use Smoking status: Former Packs/day: 0.30 Years: 3.00 Additional pack years: 0.00 Total pack years: 0.90 Types: Cigarettes Quit date: 09/10/2013 Years since quittin.5 Smokeless tobacco: Never Tobacco comments: uses E cigs Vaping Use Vaping Use: current everyday user Substances: Nicotine, Flavoring Devices: [employer] ([employer])ble tank Substance Use Topics Alcohol use: No Drug use: No Allergies: Avelox [Moxifloxaci* Rash Doxy [Doxycycline] GI Upset Penicillins Other: See Comments Comment:Mother does not recall what the reaction was and was told that she cannot take it Prozac [Fluoxetine * Other: See Comments Comment:Mother had side effects from this Current Outpatient Medications on File Prior to Visit Medication Sig magnesium oxide (MAG-OX) 400 mg (241.3 mg magnesium) tablet Take 1 tablet by mouth two times a day. metFORMIN (GLUCOPHAGE) 1,000 mg tablet Take 1 tablet by mouth two times a day with meals. venlafaxine ER (EFFEXOR XR) 37.5 mg 24 hr capsule Take 1 capsule by mouth once daily. norethindrone (AYGESTIN) 5 mg tablet Take 1 tablet by mouth once daily. amitriptyline (ELAVIL) 50 mg tablet Take 1-2 tablets by mouth daily at bedtime. busPIRone HCl 30 mg tablet Take 1 tablet by mouth two times a day. simvastatin (ZOCOR) 40 mg tablet Take 1 tablet by mouth daily at bedtime. topiramate (TOPAMAX) 50 mg tablet Take 1 tablet by mouth two times a day. ZINC ORAL Take by mouth. cholecalciferol, vitamin D3, (VITAMIN D3 ORAL) Take by mouth. blood-glucose meter,mobile dev (HOLLY BLOOD GLUCOSE MONITOR) lyn albuterol HFA (PROAIR HFA) 90 mcg/actuation inhaler Inhale 2 Puffs as instructed every 4 hours as needed. omega-3 fatty acids (FISH OIL CONCENTRATE) 1,000 mg cap Take 1,000 mg by mouth once daily. HYDROcodone-acetaminophe n (NORCO) 5-325 mg per tablet Take 5-325 tablets by mouth twice daily as needed. multivit-minerals/ferrou s fum (MULTI VITAMIN ORAL) Take by mouth. TIZANIDINE HCL (ZANAFLEX ORAL) Take by mouth twice daily. propranolol (INDERAL) 40 mg tablet Take 0.5 tablets by mouth two times a day. No current facility-administered medications on file prior to visit. Pelvic US: RESULT: Uterus: -Size: 10.4 x 4.4 x 6.2 cm -Orientation: Retroverted -Endometrial echo complex: Evaluation of the endometrium was adequate. No endometrial abnormality. The endometrial echo complex measured 0.5 cm. -Cervix: Trace fluid in the cervical canal. -Adenomyosis assessment: There are no sonographic findings of adenomyosis. -Fibroids: There are no fibroids. Right Ovary: 3.3 x 3 x 3 cm, appreciated only on transabdominal imaging - Normal sonographic appearance. Doppler assessment of the ovarian vasculature was not performed. Left Ovary: 3.5 x 1.6 x 3 cm, , appreciated (more content not included)... Normal [facility] [place] 03-16-2024 KIM[facility] Telephone (FAMPWS) -------- ANA HERNANDEZ ([id number]) 1980 F Date Time Provider Department 03/16/24 MYRANDA DALLAS During your visit today, we recorded the following information about you: Myranda Dallas APRN.CNP 03/16/2024 8:17 AM Addendum Please let patient know that her white blood count is even higher. I am going to refer her to hematology to see if this is problematic.. Magnesium level has shown no change. Please increase magnesium to twice daily. Liver functions are slightly improved. Still high. Kidney function okay. Mariel Pruitt MA 03/16/2024 8:43 AM Signed Patient was made aware of the results. Patient verbalizes understanding. Will route to hem/onc pss to get set up for consult Mariel Pruitt MA March 16, 2024 8:43 AM Devin [facility] [place] 03/16/2024 11:39 AM Signed Please review and advise. Jose Tsai DO 03/16/2024 12:46 PM Signed Low priority consultation. Next new with me or Dr. Posadas. DO Devin [place] [facility] [place] 03/16/2024 2:34 PM Signed 1st attempt. Message left for patient to schedule first available with Dr. Tsai or Dr. Posadas. - low priority consultation. FACILITY ENVIRONMENTAL TECHNICIAN/LEUKOCYTOSIS/REF PROV MYRANDA DALLAS* Carmen Oquendo 03/17/2024 9:28 AM Signed Called patient and scheduled as directed Carmen Oquendo Allergies As of Date: 03/16/2024 Noted Allergy Reaction AVELOX (MOXIFLOXACIN HCL) 08/10/2009 2 - Rash DOXY (DOXYCYCLINE) 06/09/2009 8 - GI Upset PENICILLINS 10/17/2005 14 - Other: See Comments Comments: Mother does not recall what the reaction was and was told that she cannot take it PROZAC (FLUOXETINE HCL) 05/08/2011 14 - Other: See Comments Comments: Mother had side effects from this Date Reviewed: 03/15/2024 Reviewed by: Myranda Dallas APRN.BIOINFORMATICS COMPUTER SCIENTIST - Fully Assessed Primary Visit Diagnosis:Leukocytosis, unspecified type [D72.829] Other Visit Diagnosis:Hypomagnesemia [E83.42] Order(s):magnesium oxide (MAG-OX) 400 mg (241.3 mg magnesium) tabletTake 1 tablet by mouth two times a day.Disp: 180 tabletRfl: 3 CONSULT TO HEMATOLOGY [5217] Order #: [id number]: 1 FUTURE Prescriptions as of 03/17/2024 - magnesium oxide (MAG-OX) 400 mg (241.3 mg magnesium) tablet Take 1 tablet by mouth two times a day. - metFORMIN (GLUCOPHAGE) 1,000 mg tablet Take 1 tablet by mouth two times a day with meals. - venlafaxine ER (EFFEXOR XR) 37.5 mg 24 hr capsule Take 1 capsule by mouth once daily. - norethindrone (AYGESTIN) 5 mg tablet Take 1 tablet by mouth once daily. - amitriptyline (ELAVIL) 50 mg tablet Take 1-2 tablets by mouth daily at bedtime. - busPIRone HCl 30 mg tablet Take 1 tablet by mouth two times a day. - simvastatin (ZOCOR) 40 mg tablet Take 1 tablet by mouth daily at bedtime. - topiramate (TOPAMAX) 50 mg tablet Take 1 tablet by mouth two times a day. - propranolol (INDERAL) 40 mg tablet Take 0.5 tablets by mouth two times a day. - ZINC ORAL Take by mouth. - cholecalciferol, vitamin D3, (VITAMIN D3 ORAL) Take by mouth. - blood-glucose meter,mobile dev (HOLLY BLOOD GLUCOSE MONITOR) lyn - albuterol HFA (PROAIR HFA) 90 mcg/actuation inhaler Inhale 2 Puffs as instructed every 4 hours as needed. - omega-3 fatty acids (FISH OIL CONCENTRATE) 1,000 mg cap Take 1,000 mg by mouth once daily. - HYDROcodone-acetaminophe n (NORCO) 5-325 mg per tablet Take 5-325 tablets by mouth twice daily as needed. - multivit-minerals/ferrou s fum (MULTI VITAMIN ORAL) Take by mouth. - TIZANIDINE HCL (ZANAFLEX ORAL) Take by mouth twice daily. Problem List As Of Date 03/16/2024 Noted Resolved CHOLELITHIASIS NOS [K80.20] 10/17/2005 05/23/2006 Mild intermittent asthma without complication [*05/23/2006 03/30/2018 Common migraine [G43.009] 05/23/2006 Abnormal maternal glucose tolerance, antepartum*05/23/2006 03/30/2018 Family history of diabetes mellitus [Z83.3] 05/23/2006 03/30/2018 Polycystic ovaries [E28.2] 05/23/2006 Obesity due to excess calories [E66.09] 05/23/2006 Calculus of ureter [N20.1] 05/23/2006 03/30/2018 Lumbago [M54.50] 05/23/2006 Depressive disorder [F32.A] 08/20/2006 Goiter, euthyroid [E04.9] 09/28/2006 Fatty Liver [K76.0] 06/05/2009 Hyperlipidemia [E78.5] 06/05/2009 Diabetes mellitus type 2, controlled, without c*06/05/2009 Tobacco use disorder [F17.200] 06/05/2009 Porokeratosis [Q82.8] 02/12/2011 Cervicalgia [M54.2] 01/14/2013 Callus of foot [L84] 03/30/2018 Displacement of lumbar intervertebral disc with*08/04/2014 Sprain of lumbar region [S33.5XXA] 08/04/2014 03/30/2018 RLS (restless legs syndrome) [G25.81] 03/30/2018 Transition of care performed with sharing of cl*11/29/2018 08/23/2021 Hospital discharge follow-up [Z09] 08/22/2021 Menorrhagia with irregular cycle [N92.1] 12/16/2023 Dysmenorrhea [N94.6] 12/16/2023 Prescriptions ordered this encounter Disp Refills Start End MAGNESIUM OXIDE 400 MG (241.3 MG MAG* 18 (more content not included)... Normal [facility] CBC W Auto Differential pane l (Bld)on 03-15-2024 Basophils (Bld) [#/Vol] 0.13 10*3/uL High <0.11 [facility] Comment on above: Order Comment: Speci men Type: BLOOD SPECIMENOrdering Facility: [facility] Address: [address] [place], [place] [address] Performed By: #### 5 7021-8 ####[facility] LABCLIA [id number] [place] [address] [place] Basophils/100 WBC (Bld) 1.0 % Normal [facility] Comment on above: Order Comment: Speci men Type: BLOOD SPECIMENOrdering Facility: [facility] Address: [address] [place] [address] Performed By: #### 5 7021-8 ####[facility] LABCLIA [id number] [place] [address] [place] Differential cell count method Nom (Bld) Manual Normal [facility] Comment on above: Order Comment: Speci men Type: BLOOD SPECIMENOrdering Facility: [facility] Address: [address] [place] [address] Performed By: #### 5 7021-8 ####[facility] LABCLIA [id number] [place] [address] [place] Eosinophils (Bld) [#/Vol] 0.13 10*3/uL Normal <0.46 [facility] Comment on above: Order Comment: Speci men Type: BLOOD SPECIMENOrdering Facility: [facility] Address: [address] [place] [address] Performed By: #### 5 7021-8 ####[facility] LABCLIA [id number] [place] [address] [place] Eosinophils/100 WBC (Bld) 1.0 % Normal [facility] Comment on above: Order Comment: Speci men Type: BLOOD SPECIMENOrdering Facility: [facility] Address: [address] [place] [address] Performed By: #### 5 7021-8 ####[facility] LABCLIA [id number] [place] [address] [place] Erythrocyte distribution width (RBC) [Ratio] 12.3 % Normal 11.5-15.0 [facility] Comment on above: Order Comment: Speci men Type: BLOOD SPECIMENOrdering Facility: [facility] Address: [address] [place] [address] Performed By: #### 5 7021-8 ####[facility] LABCLIA [id number] [place] [address] [place] Hematocrit (Bld) [Volume fraction] 38.6 % Normal 36.0-46.0 [facility] Comment on above: Order Comment: Speci men Type: BLOOD SPECIMENOrdering Facility: [facility] Address: [address] [place] [address] Performed By: #### 5 7021-8 ####[facility] LABIA [id number] [place] [address] [place] Hemoglobin (Bld) [Mass/Vol] 12.6 g/dL Normal 11.5-15.5 [facility] Comment on above: Order Comment: Speci men Type: BLOOD SPECIMENOrdering Facility: [facility] Address: [address] [place] [address] Performed By: #### 5 7021-8 ####[facility] LABIA [id number] [place] [address] [place] Lymphocytes (Bld) [#/Vol] 7.38 10*3/uL High 1.00-4.00 [facility] Comment on above: Order Comment: Speci men Type: BLOOD SPECIMENOrdering Facility: [facility] Address: [address] [place] [address] Performed By: #### 5 7021-8 ####[facility] LABCLIA [id number] [place] [address] [place] Lymphocytes/100 WBC (Bld) 59.0 % Normal [facility] Comment on above: Order Comment: Speci men Type: BLOOD SPECIMENOrdering Facility: [facility] Address: [address] [place] [address] Performed By: #### 5 7021-8 ####[facility] LABCLIA [id number] [place] [address] [place] MCH (RBC) [Entitic mass] 31.3 pg Normal 26.0-34.0 [facility] Comment on above: Order Comment: Speci men Type: BLOOD SPECIMENOrdering Facility: [facility] Address: [address] [place] [address] Performed By: #### 5 7021-8 ####[facility] LABCLIA [id number] [place] [address] [place] MCHC (RBC) [Mass/Vol] 32.6 g/dL Normal 30.5-36.0 [facility] Comment on above: Order Comment: Speci men Type: BLOOD SPECIMENOrdering Facility: [facility] Address: [address] [place] [address] Performed By: #### 5 7021-8 ####[facility] LABCLIA [id number] [place] [address] [place] MCV (RBC) [Entitic vol] 96.0 fL Normal 80.0-100.0 [facility] Comment on above: Order Comment: Speci men Type: BLOOD SPECIMENOrdering Facility: [facility] Address: [address] [place] [address] Performed By: #### 5 7021-8 ####[facility] LABIA [id number] [place] [address] [place] Monocytes (Bld) [#/Vol] 0.38 10*3/uL Normal <0.87 [facility] Comment on above: Order Comment: Speci men Type: BLOOD SPECIMENOrdering Facility: [facility] Address: [address] [place] [address] Performed By: #### 5 7021-8 ####[facility] LABCLIA [id number] [place] [address] [place] Monocytes/100 WBC (Bld) 3.0 % Normal [facility] Comment on above: Order Comment: Speci men Type: BLOOD SPECIMENOrdering Facility: [facility] Address: [address] [place] [address] Performed By: #### 5 7021-8 ####[facility] LABCLIA [id number] [place] [address] [place] Neutrophils (Bld) [#/Vol] 4.50 10*3/uL Normal 1.45-7.50 [facility] Comment on above: Order Comment: Speci men Type: BLOOD SPECIMENOrdering Facility: [facility] Address: [address] [place] [address] Performed By: #### 5 7021-8 ####[facility] LABCLIA [id number] [place] [address] [place] Neutrophils/100 WBC (Bld) 36.0 % Normal [facility] Comment on above: Order Comment: Speci men Type: BLOOD SPECIMENOrdering Facility: [facility] Address: [address] [place] [address] Performed By: #### 5 7021-8 ####[facility] LABCLIA [id number] [place] [address] [place] Nucleated RBC (Bld) [#/Vol] 10*3/uL Normal <0.01 [facility] Comment on above: Order Comment: Speci men Type: BLOOD SPECIMENOrdering Facility: [facility] Address: [address] [place] [address] Performed By: #### 5 7021-8 ####[facility] LABCLIA [id number] [place] [address] [place] Nucleated RBC/100 WBC (Bld) [Ratio] 0.0 /100 WBC Normal [facility] Comment on above: Order Comment: Speci men Type: BLOOD SPECIMENOrdering Facility: [facility] Address: [address] [place] [address] Performed By: #### 5 7021-8 ####[facility] LABCLIA [id number] [place] [address] [place] Platelet mean volume (Bld) [Entitic vol] 11.6 fL Normal 9.0-12.7 [facility] Comment on above: Order Comment: Speci men Type: BLOOD SPECIMENOrdering Facility: [facility] Address: [address] [place] [address] Performed By: #### 5 7021-8 ####[facility] LABCLIA [id number] [place] [address] [place] Platelets (Bld) [#/Vol] 294 10*3/uL Normal 150-400 [facility] Comment on above: Order Comment: Speci men Type: BLOOD SPECIMENOrdering Facility: [facility] Address: [address] [place] [address] Performed By: #### 5 7021-8 ####[facility] LABCLIA [id number] [place] [address] [place] Platelets Estimate (Bld) [#/Vol] Adequate Normal [facility] Comment on above: Order Comment: Speci men Type: BLOOD SPECIMENOrdering Facility: [facility] Address: [address] [place] [address] Performed By: #### 5 7021-8 ####[facility] LABCLIA [id number] [place] [address] [place] RBC (Bld) [#/Vol] 4.02 10*6/uL Normal 3.90-5.20 [facility] Comment on above: Order Comment: Speci men Type: BLOOD SPECIMENOrdering Facility: [facility] Address: [address] [place] [address] Performed By: #### 5 7021-8 ####[facility] LABCLIA [id number] [place] [address] [place] RED CELL MORPH Reviewed: unremarkable Normal [facility] Comment on above: Order Comment: Speci men Type: BLOOD SPECIMENOrdering Facility: [facility] Address: [address] [place] [address] Performed By: #### 5 7021-8 ####[facility] [id number] [place] [address] [place] WBC (Bld) [#/Vol] 12.51 10*3/uL High 3.70-11.00 [facility] Comment on above: Order Comment: Speci men Type: BLOOD SPECIMENOrdering Facility: [facility] Address: [address] [place] [address] Performed By: #### 5 7021-8 ####[facility] [id number] [address] [place] CNOVon 03-15-2024 CNOV Office Visit (FAMPWS ) -------- ANA HERNANDEZ ([id number]) 1980 F Date Time Provider Department 03/15/24 8:40 AM [facility] During your visit today, we recorded the following information about you: Pulse Blood pressure Weight Last Period 62/minute 104/70 92.1 kg 03/08/24 Myranda Dallas, CONCRETE [employer]ONE FINISHER.[facility] 03/16/2024 8:21 AM Addendum PRE-OPERATIVE ASSESSMENT Surgeon: Dr. Luna Type of surgery: Hysterectomy- laparoscopic Patient scheduled for surgery on April 15, 2024. Diagnosis:heavy menses AND polyp Consultation requested by Dr. Luna for an opinion regarding preop optimization. My final recommendations will be communicated back to the requesting physician by way of shared Medical record or letter to requesting physician via US mail. Patient presents with: Follow Up: 6 month HISTORY: DM. Hypomagnesia, elevated LFT, tobacco use- quit cigarette 10 years ago- vapes, depression, obesity, lumbar DDD Allergies: Avelox [Moxifloxaci* Rash Doxy [Doxycycline] GI Upset Penicillins Other: See Comments Comment:Mother does not recall what the reaction was and was told that she cannot take it Prozac [Fluoxetine * Other: See Comments Comment:Mother had side effects from this Current Outpatient Medications Medication Sig magnesium oxide (MAG-OX) 400 mg (241.3 mg magnesium) tablet Take 1 tablet by mouth once daily. metFORMIN (GLUCOPHAGE) 1,000 mg tablet Take 1 tablet by mouth two times a day with meals. venlafaxine ER (EFFEXOR XR) 37.5 mg 24 hr capsule Take 1 capsule by mouth once daily. norethindrone (AYGESTIN) 5 mg tablet Take 1 tablet by mouth once daily. amitriptyline (ELAVIL) 50 mg tablet Take 1-2 tablets by mouth daily at bedtime. busPIRone HCl 30 mg tablet Take 1 tablet by mouth two times a day. simvastatin (ZOCOR) 40 mg tablet Take 1 tablet by mouth daily at bedtime. topiramate (TOPAMAX) 50 mg tablet Take 1 tablet by mouth two times a day. propranolol (INDERAL) 40 mg tablet Take 0.5 tablets by mouth two times a day. ZINC ORAL Take by mouth. cholecalciferol, vitamin D3, (VITAMIN D3 ORAL) Take by mouth. blood-glucose meter,mobile dev (HOLLY BLOOD GLUCOSE MONITOR) lyn albuterol HFA (PROAIR HFA) 90 mcg/actuation inhaler Inhale 2 Puffs as instructed every 4 hours as needed. omega-3 fatty acids (FISH OIL CONCENTRATE) 1,000 mg cap Take 1,000 mg by mouth once daily. HYDROcodone-acetaminophe n (NORCO) 5-325 mg per tablet Take 5-325 tablets by mouth twice daily as needed. multivit-minerals/ferrou s fum (MULTI VITAMIN ORAL) Take by mouth. TIZANIDINE HCL (ZANAFLEX ORAL) Take by mouth twice daily. No current facility-administered medications for this visit. MEDICATIONS AND ALLERGIES REVIEWED. 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 RESP: Denies cough, wheeze but does have asthma that she states is well controlled CARD: Patient denies any dyspnea, recent [place], angina, arrhythmias, or valvular disease, and Denies h/o DVT or PE. GI: + liver/hepatitis, Patient denies any history of IBD, IBS, colitis, colorectal cancer, or diarrheal states., does have chronic constipation , LFT slightly elevated. Stopped celebrex for this reason. : No history of disease. RENAL: Denies history of renal insufficiency. ENDO: no history of steroid use, + diabetes on oral agents with none, thyroid is enlarged HEME: patient denies bleeding, bruising easily, no history of anemia and no history of prior transfusion She has had a chronic leukocytosis of unknown etiology. PSYCHIATRIC: denies eating disorders, denies a history of abuse, +history of anxiety disorder , and +history of depression ANESTHESIA COMPLICATIONS: no reported complications Past Surgical History PAST SURGICAL HISTORY Procedure Laterality Date DELIVERY ONLY , low cervical COLONOSCOPY 08/28/2018 hemorrhoid banding LAPAROSCOPY SURG CHOLECYSTECTOMY Cholecystectomy, lap MYRINGOTOMY ASPIRAND/EUSTACHIAN TUBE NFLTJ ANES Myringotomy/tubes PAST SURGICAL HISTORY OF stents in ureter for kidney stones PAST SURGICAL HISTORY OF 08/04/14 lumbar pain injections. TONSILLECTOMY PRIMARY/SECONDARY Tonsillectomy PHYSICAL EXAM: BP 104/70 Pulse 62 Wt 92.1 kg (203 lb) LMP 03/08/2024 (Approximate) SpO2 95% BMI 37.13 kg/m? Physical Exam GENERAL: Healthy, alert, no distress, cooperative, Alert, Smiling SKIN: Skin color, texture, turgor normal. No rashes or lesions. HEENT: PERRL, EOMI, and normal dentition JVD: No jugulovenous distention, No carotid bruits, Carotid pulse normal contour, Supple C (more content not included)... Normal [facility] Comprehensive metabolic 2000 panelon 03-15-2024 Albumin [Mass/Vol] 4.0 g/dL Normal 3.9-4.9 [facility] Comment on above: Order Comment: Speci men Type: BLOOD SPECIMENOrdering Facility: [facility] Address: [address] [place] [id number] Performed By: #### 1 9123-9, 64045-1 ####[facility] LABCLIA [id number] [address] [address] [place] ALP [Catalytic activity/Vol] 71 U/L Normal 34-123 [facility] Comment on above: Order Comment: Speci men Type: BLOOD SPECIMENOrdering Facility: [facility] Address: [address] [place], [place] [address] Performed By: #### 1 9123-9, 90422-6 ####[facility] LABCLIA [id number] [place] [address] [place] ALT [Catalytic activity/Vol] 54 U/L High 7-38 [facility] Comment on above: Order Comment: Speci men Type: BLOOD SPECIMENOrdering Facility: [facility] Address: [address] [place], [place] [address] Performed By: #### 1 9123-9, 12940-0 ####[facility] LABCLIA [id number] [place] [id number] [place] Anion gap [Moles/Vol] 10 mmol/L Normal 8-15 [facility] Comment on above: Order Comment: Speci men Type: BLOOD SPECIMENOrdering Facility: [facility] Address: [address] [place] [id number] Performed By: #### 1 9123-9, 46109-8 ####[facility] LABCLIA [id number] [place] [id number] [place] AST [Catalytic activity/Vol] 37 U/L High 13-35 [facility] Comment on above: Order Comment: Speci men Type: BLOOD SPECIMENOrdering Facility: [facility] Address: [address] [place], [place] [address] Performed By: #### 1 9123-9, ####[facility] LABCLIA [id number] [place] [address] [place] Bilirubin [Mass/Vol] 0.3 mg/dL Normal 0.2-1.3 [facility] Comment on above: Order Comment: Speci men Type: BLOOD SPECIMENOrdering Facility: [facility] Address: [address] [place] [address] Performed By: #### 1 239, ####[facility] LABCLIA [id number] [place] [address] [place] Calcium [Mass/Vol] 9.3 mg/dL Normal 8.5-10.2 [facility] Comment on above: Order Comment: Speci men Type: BLOOD SPECIMENOrdering Facility: [facility] Address: [address] [place] [address] Performed By: #### 1 9, ####[facility] LABCLIA [id number] [place] [address] [place] Chloride [Moles/Vol] 104 mmol/L Normal 98-107 [facility] Comment on above: Order Comment: Speci men Type: BLOOD SPECIMENOrdering Facility: [facility] Address: [address] [place] [address] Performed By: #### 1 239, ####[facility] LABCLIA [id number] [place] [address] [place] CO2 [Moles/Vol] 26 mmol/L Normal 22-30 [facility] Comment on above: Order Comment: Speci men Type: BLOOD SPECIMENOrdering Facility: [facility] Address: [address] [place] [address] Performed By: #### 1 9123-9, ####[facility] LABCLIA [id number] [place] [address] [place] Creatinine [Mass/Vol] 1.06 mg/dL High 0.58-0.96 [facility] Comment on above: Order Comment: Mary cabrera Type: BLOOD SPECIMENOrdering Facility: [facility] Address: [address] [place] [address] Performed By: #### 1 9123-9, ####[facility] LABIA [id number] [address] OF [facility] Creatinine and Glomerular filtration rate.predicted panel (S/P/Bld) 67 mL/min/1.73m??? Normal >=60 [facility] Comment on above: Order Comment: Mary cabrera Type: BLOOD SPECIMENOrdering Facility: [facility] Address: [address] [place] [address] Result Comment: Gilda mated Glomerular Filtration Rate (eGFR) is calculated using the 2020 CKD-EPI creatinine equation. This equation utilizes serum creatinine, sex, and age as parameters. The creatinine assay has traceable calibration to isotope dilution-mass spectrometry. Refer to KDIGO guidelines for clinical interpretation. In patients with unstable renal function, e.g. those with acute kidney injury, the eGFR may not accurately reflect actual GFR. Performed By: #### 1 9123-9, ####[facility] LABCLIA [id number] [place] [address] [place] Glucose [Mass/Vol] 141 mg/dL High 74-99 [facility] Comment on above: Order Comment: Mary cabrera Type: BLOOD SPECIMENOrdering Facility: [facility] Address: [address] [place] [address] Result Comment: The [place] [employer] (ADA) provides guidance for cutoff values for fasting glucose and random glucose. The ADA defines fasting as no caloric intake for at least 8 hours. Fasting plasma glucose results between 100 to 125 mg/dL indicate increased risk for diabetes (prediabetes). Fasting plasma glucose results greater than or equal to 126 mg/dL meet the criteria for diagnosis of diabetes. In the absence of unequivocal hyperglycemia, results should be confirmed by repeat testing. In a patient with classic symptoms of hyperglycemia or hyperglycemic crisis, random plasma glucose results greater than or equal to 200 mg/dL meet the criteria for diagnosis of diabetes. Reference: Standards of Medical Care in Diabetes 2016, [place] [employer] Association. Diabetes Care. 2016.39(Suppl 1). Performed By: #### 1 23-9, ####[facility] LABCLIA [id number] [place] [address] [place] Potassium [Moles/Vol] 4.0 mmol/L Normal 3.7-5.1 [facility] Comment on above: Order Comment: Speci men Type: BLOOD SPECIMENOrdering Facility: [facility] Address: [address] [place] [address] Performed By: #### 1 9, ####[facility] LABCLIA [id number] [place] [address] [place] Protein [Mass/Vol] 7.2 g/dL Normal 6.3-8.0 [facility] Comment on above: Order Comment: Speci men Type: BLOOD SPECIMENOrdering Facility: [facility] Address: [address] [place] [address] Performed By: #### 1 9123-05, ####[facility] LABCLIA [id number] [place] [address] [place] Sodium [Moles/Vol] 140 mmol/L Normal 136-144 [facility] Comment on above: Order Comment: Speci men Type: BLOOD SPECIMENOrdering Facility: [facility] Address: [address] [place] [address] Performed By: #### 1 239, ####[facility] LABCLIA [id number] [address] [address] [place] Urea nitrogen [Mass/Vol] 14 mg/dL Normal 7-21 [facility] Comment on above: Order Comment: Speci men Type: BLOOD SPECIMENOrdering Facility: [facility] Address: [address] [place] [id number] Performed By: #### 1 9123-9, 35592-1 ####[facility] [id number] [place] [id number] [place] Magnesium SerPl-mCncon 03-15 Magnesium [Mass/Vol] 1.6 mg/dL Low 1.7-2.3 [facility] Comment on above: Order Comment: Speci men Type: BLOOD SPECIMENOrdering Facility: [facility] Address: [address] [place] [id number] Performed By: #### 1 9123-9, 98248-4 ####[facility] LABIA [id number] [place] [id number] [place] Chiqui 02-27-2024 CNPN [facility]phone [facility] -------- ANA HERNANDEZ ([id number]) 1980 F Date Time Provider Department 02/27/24 [facility] [place] [facility] During your visit today, we recorded the following information about you: Mariel Pruitt MA 02/27/2024 12:58 PM Signed Please check with patient to see if she thinks she could increase metformin to 1000 mg twice a day with meals. Her hemoglobin A1c is 7.5%, that is not very good control for diabetic. Urine for microalbumin creatinine ratio showed no effect of diabetes on the kidneys Liver function test are slightly elevated. She will need to stop Celebrex. I would stop it permanently. It is not recommended to continue on nonsteroidal anti-inflammatories with abnormal liver function. Finally, her magnesium is low at 1.6. I would like her to start magnesium oxide 420 mg daily. That will replace her magnesium. Magnesium is needed for contraction of cardiac muscles. Let me know what she decides about Metformin. Mariel Pruitt MA 02/27/2024 12:58 PM Signed Patient was made aware of the results. Patient verbalizes understanding. Patient is ok with metformin increase Mariel Maximino Pruitt Allergies As of Date: 02/27/2024 Noted Allergy Reaction AVELOX (MOXIFLOXACIN HCL) 08/10/2009 2 - Rash DOXY (DOXYCYCLINE) 06/09/2009 8 - GI Upset PENICILLINS 10/17/2005 14 - Other: See Comments Comments: Mother does not recall what the reaction was and was told that she cannot take it PROZAC (FLUOXETINE HCL) 05/08/2011 14 - Other: See Comments Comments: Mother had side effects from this Date Reviewed: 02/26/2024 Reviewed by: Myranda Dallas APRN.SCHOOL AGE TEACHER - Fully Assessed Reason for Visit: Results [95] Visit Diagnosis:Controlled type 2 diabetes mellitus without complication, without long-term current use of insulin (HCC) [E11.9] Order(s):metFORMIN (GLUCOPHAGE) 1,000 mg tabletTake 1 tablet by mouth two times a day with meals.Disp: 180 tabletRfl: 3 Prescriptions as of 02/27/2024 - magnesium oxide (MAG-OX) 400 mg (241.3 mg magnesium) tablet Take 1 tablet by mouth once daily. - metFORMIN (GLUCOPHAGE) 1,000 mg tablet Take 1 tablet by mouth two times a day with meals. - venlafaxine ER (EFFEXOR XR) 37.5 mg 24 hr capsule Take 1 capsule by mouth once daily. - norethindrone (AYGESTIN) 5 mg tablet Take 1 tablet by mouth once daily. - amitriptyline (ELAVIL) 50 mg tablet Take 1-2 tablets by mouth daily at bedtime. - busPIRone HCl 30 mg tablet Take 1 tablet by mouth two times a day. - simvastatin (ZOCOR) 40 mg tablet Take 1 tablet by mouth daily at bedtime. - topiramate (TOPAMAX) 50 mg tablet Take 1 tablet by mouth two times a day. - propranolol (INDERAL) 40 mg tablet Take 0.5 tablets by mouth two times a day. - ZINC ORAL Take by mouth. - cholecalciferol, vitamin D3, (VITAMIN D3 ORAL) Take by mouth. - blood-glucose meter,mobile dev (HOLLY BLOOD GLUCOSE MONITOR) lyn - albuterol HFA (PROAIR HFA) 90 mcg/actuation inhaler Inhale 2 Puffs as instructed every 4 hours as needed. - omega-3 fatty acids (FISH OIL CONCENTRATE) 1,000 mg cap Take 1,000 mg by mouth once daily. - HYDROcodone-acetaminophe n (NORCO) 5-325 mg per tablet Take 5-325 tablets by mouth twice daily as needed. - multivit-minerals/ferrou s fum (MULTI VITAMIN ORAL) Take by mouth. - TIZANIDINE HCL (ZANAFLEX ORAL) Take by mouth twice daily. Problem List As Of Date 02/27/2024 Noted Resolved CHOLELITHIASIS NOS [K80.20] 10/17/2005 05/23/2006 Mild intermittent asthma without complication [*05/23/2006 03/30/2018 Common migraine [G43.009] 05/23/2006 Abnormal maternal glucose tolerance, antepartum*05/23/2006 03/30/2018 Family history of diabetes mellitus [Z83.3] 05/23/2006 03/30/2018 Polycystic ovaries [E28.2] 05/23/2006 Obesity due to excess calories [E66.09] 05/23/2006 Calculus of ureter [N20.1] 05/23/2006 03/30/2018 Lumbago [M54.50] 05/23/2006 Depressive disorder [F32.A] 08/20/2006 Goiter, euthyroid [E04.9] 09/28/2006 Fatty Liver [K76.0] 06/05/2009 Hyperlipidemia [E78.5] 06/05/2009 Diabetes mellitus type 2, controlled, without c*06/05/2009 Tobacco use disorder [F17.200] 06/05/2009 Porokeratosis [Q82.8] 02/12/2011 Cervicalgia [M54.2] 01/14/2013 Callus of foot [L84] 03/30/2018 Displacement of lumbar intervertebral disc with*08/04/2014 Sprain of lumbar region [S33.5XXA] 08/04/2014 03/30/2018 RLS (restless legs syndrome) [G25.81] 03/30/2018 Transition of care performed with sharing of cl*11/29/2018 08/23/2021 Hospital discharge follow-up [Z09] 08/22/2021 Menorrhagia with irregular cycle [N92.1] 12/16/2023 Dysmenorrhea [N94.6] 12/16/2023 Prescriptions ordered this encounter Disp Refills Start End METFORMIN 1,000 MG TABLET 180 * 3 02/27/2024 02/26/2025 Route: ORAL Sig: Take 1 tablet by mouth two times a day with meals. Medications Discontinued During This Encounter Prescriptions - metFORMIN (GLUCOPHAGE) 850 mg t (more content not included)... Normal [facility] ALBUMIN/CREATININE RATIO, UR INEon 02-26-2024 Albumin DL <= 20 mg/L (U) [Mass/Vol] mg/dL Normal [facility] Comment on above: Order Comment: Mary cabrera Type: BLOOD SPECIMEN [facility] Address: [address] [place] [address] Performed By: #### 5 7021-8 #### [facility] CLIA [id number] [address] [place] [address] [place] Albumin/Creatinine (U) [Mass ratio] <20 Normal <30 [facility] Comment on above: Order Comment: Mary cabrera Type: BLOOD SPECIMEN [facility]ing [facility]: [facility] Address: [address] [place] [address] Result Comment: Adul t Male and Female Nephrotic Criteria: <30 mg/g is considered normal to mildly increased 30-300 mg/g is considered moderately increased >300 mg/g is considered severely increased KDIGO. (2013). KDIGO 2012 Clinical Practice Guideline for the Evaluation and Management of Chronic Kidney Disease. Official Journal of the International Society of Nephrology, 3(1), 1-150. Performed By: #### 5 7021-8 #### [facility] CLIA [id number] [address] [place] [address] [place] Creatinine (U) [Mass/Vol] 60.0 mg/dL Normal 20.0-300.0 [facility] Comment on above: Order Comment: Mary cabrera Type: BLOOD SPECIMEN [facility] Address: [address] [place], [place] [id number] Performed By: #### 5 7021-8 #### [facility] CLIA [id number] [facility] [place] [address] [place] CBC W Auto Differential pane l (Bld)on 02-26-2024 Basophils (Bld) [#/Vol] 0.00 10*3/uL Normal <0.11 [facility] Comment on above: Order Comment: Speci men Type: BLOOD SPECIMENOrdering Facility: [facility] Address: [address] [place] [address] Performed By: #### 5 7021-8 ####[facility] LABCLIA [id number] [place] [address] [place] Basophils/100 WBC (Bld) 0.0 % Normal [facility] Comment on above: Order Comment: Speci men Type: BLOOD SPECIMENOrdering Facility: [facility] Address: [address] [place] [address] Performed By: #### 5 7021-8 ####[facility] LABCLIA [id number] [place] [address] [place] Differential cell count method Nom (Bld) Manual Normal [facility] Comment on above: Order Comment: Speci men Type: BLOOD SPECIMENOrdering Facility: [facility] Address: [address] [place] [address] Performed By: #### 5 7021-8 ####[facility] LABCLIA [id number] [place] [address] [place] Eosinophils (Bld) [#/Vol] 0.21 10*3/uL Normal <0.46 [facility] Comment on above: Order Comment: Speci men Type: BLOOD SPECIMENOrdering Facility: [facility] Address: [address] [place] [address] Performed By: #### 5 7021-8 ####[facility] LABCLIA [id number] [place] [address] [place] Eosinophils/100 WBC (Bld) 1.7 % Normal [facility] Comment on above: Order Comment: Speci men Type: BLOOD SPECIMENOrdering Facility: [facility] Address: [address] [place] [address] Performed By: #### 5 7021-8 ####[facility]CLIA [id number] [place] [address] [place] Erythrocyte distribution width (RBC) [Ratio] 12.5 % Normal 11.5-15.0 [facility] Comment on above: Order Comment: Speci men Type: BLOOD SPECIMENOrdering Facility: [facility] Address: [address] [place] [address] Performed By: #### 5 7021-8 ####[facility]CLIA [id number] [place] [address] [place] Hematocrit (Bld) [Volume fraction] 41.7 % Normal 36.0-46.0 [facility] Comment on above: Order Comment: Speci men Type: BLOOD SPECIMENOrdering Facility: [facility] Address: [address] [place] [address] Performed By: #### 5 7021-8 ####[facility] LABCLIA [id number] [place] [address] [place] Hemoglobin (Bld) [Mass/Vol] 13.6 g/dL Normal 11.5-15.5 [facility] Comment on above: Order Comment: Speci men Type: BLOOD SPECIMENOrdering Facility: [facility] Address: [address] [place] [address] Performed By: #### 5 7021-8 ####[facility] LABCLIA [id number] [place] [address] [place] Lymphocytes (Bld) [#/Vol] 4.44 10*3/uL High 1.00-4.00 [facility] Comment on above: Order Comment: Speci men Type: BLOOD SPECIMENOrdering Facility: [facility] Address: [address] [place] [address] Performed By: #### 5 7021-8 ####[facility] LABCLIA [id number] [place] [address] [place] Lymphocytes/100 WBC (Bld) 36.5 % Normal [facility] Comment on above: Order Comment: Speci men Type: BLOOD SPECIMENOrdering Facility: [facility] Address: [address] [place] [address] Performed By: #### 5 7021-8 ####[facility] LABCLIA [id number] [place] [address] [place] MCH (RBC) [Entitic mass] 31.1 pg Normal 26.0-34.0 [facility] Comment on above: Order Comment: Speci men Type: BLOOD SPECIMENOrdering Facility: [facility] Address: [address] [place] [address] Performed By: #### 5 7021-8 ####[facility] LABCLIA [id number] [place] [address] [place] MCHC (RBC) [Mass/Vol] 32.6 g/dL Normal 30.5-36.0 [facility] Comment on above: Order Comment: Speci men Type: BLOOD SPECIMENOrdering Facility: [facility] Address: [address] [place] [address] Performed By: #### 5 7021-8 ####[facility] LABCLIA [id number] [place] [address] [place] MCV (RBC) [Entitic vol] 95.2 fL Normal 80.0-100.0 [facility] Comment on above: Order Comment: Speci men Type: BLOOD SPECIMENOrdering Facility: [facility] Address: [address] [place] [address] Performed By: #### 5 7021-8 ####[facility] LABCLIA [id number] [place] [address] [place] Monocytes (Bld) [#/Vol] 0.32 10*3/uL Normal <0.87 [facility] Comment on above: Order Comment: Speci men Type: BLOOD SPECIMENOrdering Facility: [facility] Address: [address] [place] [address] Performed By: #### 5 7021-8 ####[facility]CLIA [id number] [place] [address] [place] Monocytes/100 WBC (Bld) 2.6 % Normal [facility] Comment on above: Order Comment: Speci men Type: BLOOD SPECIMENOrdering Facility: [facility] Address: [address] [place] [address] Performed By: #### 5 7021-8 ####[facility]CLIA [id number] [place] [address] [place] Neutrophils (Bld) [#/Vol] 7.20 10*3/uL Normal 1.45-7.50 [facility] Comment on above: Order Comment: Speci men Type: BLOOD SPECIMENOrdering Facility: [facility] Address: [address] [place] [address] Performed By: #### 5 7021-8 ####[facility]CLIA [id number] [place] [address] [place] Neutrophils/100 WBC (Bld) 59.2 % Normal [facility] Comment on above: Order Comment: Speci men Type: BLOOD SPECIMENOrdering Facility: [facility] Address: [address] [place] [address] Performed By: #### 5 7021-8 ####[facility]CLIA [id number] [place] [address] [place] Nucleated RBC (Bld) [#/Vol] 10*3/uL Normal <0.01 [facility] Comment on above: Order Comment: Speci men Type: BLOOD SPECIMENOrdering Facility: [facility] Address: [address] [place] [address] Performed By: #### 5 7021-8 ####[facility] LABIA [id number] [place] [address] [place] Nucleated RBC/100 WBC (Bld) [Ratio] 0.0 /100 WBC Normal [facility] Comment on above: Order Comment: Speci men Type: BLOOD SPECIMENOrdering Facility: [facility] Address: [address] [place] [address] Performed By: #### 5 7021-8 ####[facility]IA [id number] [place] [address] [place] Platelet mean volume (Bld) [Entitic vol] 11.3 fL Normal 9.0-12.7 [facility] Comment on above: Order Comment: Speci men Type: BLOOD SPECIMENOrdering Facility: [facility] Address: [address] [place] [address] Performed By: #### 5 7021-8 ####[facility] [id number] [place] [address] [place] Platelets (Bld) [#/Vol] 314 10*3/uL Normal 150-400 [facility] Comment on above: Order Comment: Speci men Type: BLOOD SPECIMENOrdering Facility: [facility] Address: [address] [place] [address] Performed By: #### 5 7021-8 ####[facility]IA [id number] [place] [address] [place] Platelets Estimate (Bld) [#/Vol] Adequate Normal [facility] Comment on above: Order Comment: Speci men Type: BLOOD SPECIMENOrdering Facility: [facility] Address: [address] [place] [address] Performed By: #### 5 7021-8 ####[facility]CL[facility] [id number] [place] [address] [place] Polychromasia LM Ql (Bld) Slight Normal [facility] Comment on above: Order Comment: Speci men Type: BLOOD SPECIMENOrdering Facility: [facility] Address: [address] [place] [address] Performed By: #### 5 7021-8 ####[facility] [id number] [place] [address] [place] RBC (Bld) [#/Vol] 4.38 10*6/uL Normal 3.90-5.20 [facility] Comment on above: Order Comment: Speci men Type: BLOOD SPECIMENOrdering Facility: [facility] Address: [address] [place] [address] Performed By: #### 5 7021-8 ####[facility] [id number] [place] [address] [place] RED CELL MORPH Reviewed: unremarkable Normal [facility] Comment on above: Order Comment: Speci men Type: BLOOD SPECIMENOrdering Facility: [facility] Address: [address] [place] [address] Performed By: #### 5 7021-8 ####[facility] [id number] [place] [address] [place] WBC (Bld) [#/Vol] 12.16 10*3/uL High 3.70-11.00 [facility] Comment on above: Order Comment: Speci men Type: BLOOD SPECIMENOrdering Facility: [facility] Address: [address] [place] [address] Performed By: #### 5 7021-8 ####[facility] [id number] [place] [address] [place] CNOVon 02-26-2024 CNOV Office Visit (FAMPWS ) -------- ANA HERNANDEZ ([id number]) 1980 F Date Time Provider Department 02/26/24 8:20 AM MYRANDA [place] During your visit today, we recorded the following information about you: Pulse Respiration Blood pressure Weight 81/minute 16/minute 112/72 92.5 kg Myranda Dallas, [employer]CR[employer]ISH[employer].[facility] 02/27/2024 12:01 PM Addendum PRE-OPERATIVE ASSESSMENT Surgeon: Dr. Luna Type of surgery: Lap. hysterectomy Patient scheduled for surgery on pending. Diagnosis:irregular and heavy bleeding irregular and heavy bleeding Consultation requested by Dr. Luna for an opinion regarding pre-op. My final recommendations will be communicated back to the requesting physician by way of shared Medical record or letter to requesting physician via US mail. Patient presents with: Pre-Op Exam HISTORY: DM, tobacco use, lumbar DDD, depression, obesity Allergies: Avelox [Moxifloxaci* Rash Doxy [Doxycycline] GI Upset Penicillins Other: See Comments Comment:Mother does not recall what the reaction was and was told that she cannot take it Prozac [Fluoxetine * Other: See Comments Comment:Mother had side effects from this Current Outpatient Medications Medication Sig norethindrone (AYGESTIN) 5 mg tablet Take 1 tablet by mouth once daily. metFORMIN (GLUCOPHAGE) 850 mg tablet Take 1 tablet by mouth two times a day with meals. amitriptyline (ELAVIL) 50 mg tablet Take 1-2 tablets by mouth daily at bedtime. busPIRone HCl 30 mg tablet Take 1 tablet by mouth two times a day. desvenlafaxine ER (PRISTIQ) 25 mg 24 hr tablet Take 1 tablet by mouth once daily. simvastatin (ZOCOR) 40 mg tablet Take 1 tablet by mouth daily at bedtime. topiramate (TOPAMAX) 50 mg tablet Take 1 tablet by mouth two times a day. propranolol (INDERAL) 40 mg tablet Take 0.5 tablets by mouth two times a day. ZINC ORAL Take by mouth. cholecalciferol, vitamin D3, (VITAMIN D3 ORAL) Take by mouth. albuterol HFA (PROAIR HFA) 90 mcg/actuation inhaler Inhale 2 Puffs as instructed every 4 hours as needed. omega-3 fatty acids (FISH OIL CONCENTRATE) 1,000 mg cap Take 1,000 mg by mouth once daily. HYDROcodone-acetaminophe n (NORCO) 5-325 mg per tablet Take 5-325 tablets by mouth twice daily as needed. multivit-minerals/ferrou s fum (MULTI VITAMIN ORAL) Take by mouth. celecoxib (CELEBREX) 200 mg capsule Take 200 mg by mouth once daily. TIZANIDINE HCL (ZANAFLEX ORAL) Take by mouth twice daily. blood-glucose meter,mobile dev (iPeen BLOOD GLUCOSE MONITOR) lyn No current facility-administered medications for this visit. MEDICATIONS AND ALLERGIES REVIEWED. 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 RESP: + asthma CARD: Patient denies any dyspnea, recent WA, angina, arrhythmias, or valvular disease, and Denies h/o DVT or PE. GI: Patient denies any history of GERD, PUD, liver problems or ETOH abuse., Patient denies any history of IBD, IBS, colitis, colorectal cancer, or diarrheal states. : No history of disease. RENAL: Denies history of renal insufficiency. ENDO: + diabetes diet controlled with up-to date with routine eye exam HEME: patient denies bleeding, bruising easily, no history of anemia and no history of prior transfusion PSYCHIATRIC: +history of anxiety disorder and +history of depression ANESTHESIA COMPLICATIONS: no reported complications Past Surgical History PAST SURGICAL HISTORY Procedure Laterality Date DELIVERY ONLY , low cervical COLONOSCOPY 08/28/2018 hemorrhoid banding LAPAROSCOPY SURG CHOLECYSTECTOMY Cholecystectomy, lap MYRINGOTOMY ASPIRAND/EUSTACHIAN TUBE NFLTJ ANES Myringotomy/tubes PAST SURGICAL HISTORY OF stents in ureter for kidney stones PAST SURGICAL HISTORY OF 08/04/14 lumbar pain injections. TONSILLECTOMY PRIMARY/SECONDARY Tonsillectomy PHYSICAL EXAM: BP 112/72 Pulse 81 Resp 16 Wt 92.5 kg (204 lb) LMP 12/12/2023 (Exact Date) SpO2 97% BMI 37.31 kg/m? Physical Exam GENERAL: Healthy, alert, no distress, cooperative, Smiling SKIN: Skin color, texture, turgor normal. No rashes or lesions. HEENT: PERRL, EOMI, and normal dentition JVD: No jugulovenous distention, No carotid bruits, Carotid pulse normal contour, Supple CARDIAC: Normal S1 and S2; no rubs, murmurs, or gallops LUNGS: Lungs clear to auscultation, Good diaphragmatic excursion ABDOMEN: Abdomen soft, non-tender, BS normal, No masses or organomegaly EXTREMITIES: Extremities normal, no deformities, edema, clubbing or skin discoloration. Good capillary r (more content not included)... Normal [facility] Comprehensive metabolic 2000 panelon 02-26-2024 Albumin [Mass/Vol] 4.2 g/dL Normal 3.9-4.9 [facility] Comment on above: Order Comment: Speci men Type: BLOOD SPECIMEN [facility]ing Facility: [facility] Address: [address] [place] [address] Performed By: #### 2 4323-8, 67041-0, LIPNF, 3016-3 #### [facility] CLIA [id number] [address] [place] [address] [place] ALP [Catalytic activity/Vol] 78 U/L Normal 34-123 [facility] Comment on above: Order Comment: Speci men Type: BLOOD SPECIMEN Ordering Facility: [facility] Address: [address] [place] [address] Performed By: #### 2 4323-8, 67677-5, LIPNF, 3016-3 #### [facility] CLIA [id number] [place] [id number] [address] [place] ALT [Catalytic activity/Vol] 63 U/L High 7-38 [facility] Comment on above: Order Comment: Speci men Type: BLOOD SPECIMEN [facility]ing Facility: [facility] Address: [address] [place] [address] Performed By: #### 2 4323-8, , LIPNF, 3016-3 #### [facility] CLIA [id number] [address] [place] [address] [place] Anion gap [Moles/Vol] 12 mmol/L Normal 8-15 [facility] Comment on above: Order Comment: Speci men Type: BLOOD SPECIMEN [facility] [facility] Address: [address] [place] [address] Performed By: #### 2 4323-8, , LIPNF, 3016-3 #### [facility] CLIA [id number] [address] [place] [address] [place] AST [Catalytic activity/Vol] 48 U/L High 13-35 [facility] Comment on above: Order Comment: Speci men Type: BLOOD SPECIMEN Ordering Facility: [facility] Address: [address] [place] [address] Performed By: #### 2 4323-8, , LIPNF, 3016-3 #### [facility] CLIA [id number] [address] [place] [address] [place] Bilirubin [Mass/Vol] 0.3 mg/dL Normal 0.2-1.3 [facility] Comment on above: Order Comment: Speci men Type: BLOOD SPECIMEN Ordering Facility: [facility] Address: [address] [place] [address] Performed By: #### 2 4323-8, , LIPNF, 3016-3 #### [facility] CLIA [id number] [address] [place] [address] [place] Calcium [Mass/Vol] 9.8 mg/dL Normal 8.5-10.2 [facility] Comment on above: Order Comment: Speci men Type: BLOOD SPECIMEN Ordering Facility: [facility] Address: [address] [place] [address] Performed By: #### 2 4323-8, , LIPNF, 3016-3 #### [facility] CLIA [id number] [address] [place] [address] [place] Chloride [Moles/Vol] 106 mmol/L Normal 98-107 [facility] Comment on above: Order Comment: Speci men Type: BLOOD SPECIMEN Ordering Facility: [facility] Address: [address] [place] [address] Performed By: #### 2 4323-8, , LIPNF, 6-3 #### [facility] CLIA [id number] [address] [place] [address] [place] CO2 [Moles/Vol] 22 mmol/L Normal 22-30 [facility] Comment on above: Order Comment: Speci men Type: BLOOD SPECIMEN Ordering Facility: [facility] Address: [address] [place] [address] Performed By: #### 2 4323-8, , LIPNF, 3016-3 #### [facility] CLIA [id number] [address] [place] [address] [place] Creatinine [Mass/Vol] 0.88 mg/dL Normal 0.58-0.96 [facility] Comment on above: Order Comment: Speci men Type: BLOOD SPECIMEN Ordering Facility: [facility] Address: [address] [place] [address] Performed By: #### 2 4323-8, , LIPNF, 3016-3 #### [facility] CLIA [id number] [address] [place] [address] [place] Creatinine and Glomerular filtration rate.predicted panel (S/P/Bld) 84 mL/min/1.73m??? Normal >=60 [facility] Comment on above: Order Comment: Mary cabrera Type: BLOOD SPECIMEN Ordering Facility: [facility] Address: [address] [place] [address] Result Comment: Gilda mated Glomerular Filtration Rate (eGFR) is calculated using the 2020 CKD-EPI creatinine equation. This equation utilizes serum creatinine, sex, and age as parameters. The creatinine assay has traceable calibration to isotope dilution-mass spectrometry. Refer to KDIGO guidelines for clinical interpretation. In patients with unstable renal function, e.g. those with acute kidney injury, the eGFR may not accurately reflect actual GFR. Performed By: #### 2 4323-8, 37719-6, HEATHER, 3016-3 #### [facility] CLIA [id number] [address] [place] [address] [place] Glucose [Mass/Vol] 159 mg/dL High 74-99 [facility] Comment on above: Order Comment: Mary cabrera Type: BLOOD SPECIMEN Ordering Facility: [facility] Address: [address] [place] [address] Result Comment: The [place] Diabetes Association (ADA) provides guidance for cutoff values for fasting glucose and random glucose. The ADA defines fasting as no caloric intake for at least 8 hours. Fasting plasma glucose results between 100 to 125 mg/dL indicate increased risk for diabetes (prediabetes). Fasting plasma glucose results greater than or equal to 126 mg/dL meet the criteria for diagnosis of diabetes. In the absence of unequivocal hyperglycemia, results should be confirmed by repeat testing. In a patient with classic symptoms of hyperglycemia or hyperglycemic crisis, random plasma glucose results greater than or equal to 200 mg/dL meet the criteria for diagnosis of diabetes. Reference: Standards of Medical Care in Diabetes 2016, [place] Diabetes Association. Diabetes Care. 2016.39(Suppl 1). Performed By: #### 2 4323-8, 12580-8, HEATHER, 3016-3 #### [facility] CLIA [id number] [address] [place], [place] [address] [place] Potassium [Moles/Vol] 4.4 mmol/L Normal 3.7-5.1 [facility] Comment on above: Order Comment: Speci men Type: BLOOD SPECIMEN Ordering Facility: [facility] Address: [address] [place] [address] Performed By: #### 2 4323-8, , LIPNF, 6-3 #### [facility] CLIA [id number] [address] [place] [address] [place] Protein [Mass/Vol] 7.7 g/dL Normal 6.3-8.0 [facility] Comment on above: Order Comment: Speci men Type: BLOOD SPECIMEN Ordering Facility: [facility] Address: [address] [place] [address] Performed By: #### 2 4323-8, , LIPNF, 6-3 #### [facility] CLIA [id number] [address] [place] [address] [place] Sodium [Moles/Vol] 140 mmol/L Normal 136-144 [facility] Comment on above: Order Comment: Speci men Type: BLOOD SPECIMEN Ordering Facility: [facility] Address: [address] [place] [address] Performed By: #### 2 4323-8, , LIPNF, 6-3 #### [facility] CLIA [id number] [address] [place] [address] [place] Urea nitrogen [Mass/Vol] 9 mg/dL Normal 7-21 [facility] Comment on above: Order Comment: Speci men Type: BLOOD SPECIMEN Ordering Facility: [facility] Address: [address] [place] [address] Performed By: #### 2 4323-8, , LIPNF, 6-3 #### [facility] CLIA [id number] [address] [place], [place] [address] [place] HbA1c (Bld)on 02-26-2024 Average glucose Estimated from glycated hemoglobin (Bld) [Mass/Vol] 169 mg/dL Normal [facility] Comment on above: Order Comment: Mary cabrera Type: BLOOD SPECIMENOrdering Facility: [facility] Address: [address] [place] [address] Result Comment: eAG: (Estimated average glucose) is a calculated value from HgbA1c and is telemarketing representative of the average blood glucose level in the last 2-3 month period. Performed By: #### 5 5454-3 ####[facility] [id number] [place] [address] [place] HbA1c (Bld) [Mass fraction] 7.5 % High 4.3-5.6 [facility] Comment on above: Order Comment: Mary cabrera Type: BLOOD SPECIMENOrdering Facility: [facility] Address: [address] [place] [address] Result Comment: Amer [place] Diabetes Association guidelines indicate that patients with HgbA1c in the range 5.7-6.4% are at increased risk for development of diabetes, and intervention by lifestyle modification may be beneficial. HgbA1c greater or equal to 6.5% is considered diagnostic of diabetes. Performed By: #### 5 5454-3 ####[facility] [id number] [place] [address] [place] Magnesium SerPl-mCncon 02-25 Magnesium [Mass/Vol] 1.6 mg/dL Low 1.7-2.3 [facility] Comment on above: Order Comment: Mary cabrera Type: BLOOD SPECIMEN Ordering Facility: [facility] Address: [address] [place] [address] Performed By: #### 2 4323-8, 42715-3, LIPNF, 3016-3 #### [facility] CLIA [id number] [address] [place] [address] [place] TSH SerPl-aCncon 02-26-2024 TSH Qn 1.830 m[IU]/L Normal 0.270-4.200 [facility] Comment on above: Order Comment: Speci men Type: BLOOD SPECIMEN Ordering Facility: [facility] Address: [address] [place] [address] Result Comment: If t he patient is , TSH reference range varies by gestational period: First Trimester (weeks 9-12): 0.180-2.990 mIU/L Second Trimester: 0.110-3.980 mIU/L Third Trimester: 0.480-4.710 mIU/L Smooth Tracy et al. A Practical Approach for the Verifications and Determination of Site- and Trimester-Specific Reference Intervals for Thyroid Function tests in . Thyroid, 2019:29:3:412-420. Melchor E, et al. 2017 Guidelines of the [place] Thyroid Association for the Diagnosis and Management of Thyroid Disease during and the . Thyroid, 2017:27:3:315-389. Performed By: #### 2 4323-8, 05338-1, HEATHER, 3016-3 #### [facility] CLIA [id number] [address] [place] [address] [facility]2024 [facility] Telephone (FAMWS) -------- ANA HERNANDEZ ([id number]) 1980 F Date Time Provider Department 02/24/24 Albert [facility] During your visit today, we recorded the following information about you: Mariel Pruitt MA 02/24/2024 1:43 PM Signed Please help pt schedule pre-op appointment for upcoming kitchen bath designer procedure. Joycelyn Box 02/24/2024 2:46 PM Signed Spoke with patient and scheduled on 02/26/24 with Myranda Whitehead APRN.S[employer]ER 02/27/2024 11:57 AM Signed Please check with patient to see if she thinks she could increase metformin to 1000 mg twice a day with meals. Her hemoglobin A1c is 7.5%, that is not very good control for diabetic. Urine for microalbumin creatinine ratio showed no effect of diabetes on the kidneys Liver function test are slightly elevated. She will need to stop Celebrex. I would stop it permanently. It is not recommended to continue on nonsteroidal anti-inflammatories with abnormal liver function. Finally, her magnesium is low at 1.6. I would like her to start magnesium oxide 420 mg daily. That will replace her magnesium. Magnesium is needed for contraction of cardiac muscles. Let me know what she decides about Metformin. Allergies As of Date: 02/24/2024 Noted Allergy Reaction AVELOX (MOXIFLOXACIN HCL) 08/10/2009 2 - Rash DOXY (DOXYCYCLINE) 06/09/2009 8 - GI Upset PENICILLINS 10/17/2005 14 - Other: See Comments Comments: Mother does not recall what the reaction was and was told that she cannot take it PROZAC (FLUOXETINE HCL) 05/08/2011 14 - Other: See Comments Comments: Mother had side effects from this Date Reviewed: 02/23/2024 Reviewed by: Sadaf Sorensen MA - Fully Assessed Reason for Visit: Appointment [186] Primary Visit Diagnosis:Hypomagnesemia [E83.42] Order(s):magnesium oxide (MAG-OX) 400 mg (241.3 mg magnesium) tabletTake 1 tablet by mouth once daily.Disp: 90 tabletRfl: 3 Prescriptions as of 02/27/2024 - magnesium oxide (MAG-OX) 400 mg (241.3 mg magnesium) tablet Take 1 tablet by mouth once daily. - venlafaxine ER (EFFEXOR XR) 37.5 mg 24 hr capsule Take 1 capsule by mouth once daily. - norethindrone (AYGESTIN) 5 mg tablet Take 1 tablet by mouth once daily. - metFORMIN (GLUCOPHAGE) 850 mg tablet Take 1 tablet by mouth two times a day with meals. - amitriptyline (ELAVIL) 50 mg tablet Take 1-2 tablets by mouth daily at bedtime. - busPIRone HCl 30 mg tablet Take 1 tablet by mouth two times a day. - simvastatin (ZOCOR) 40 mg tablet Take 1 tablet by mouth daily at bedtime. - topiramate (TOPAMAX) 50 mg tablet Take 1 tablet by mouth two times a day. - propranolol (INDERAL) 40 mg tablet Take 0.5 tablets by mouth two times a day. - ZINC ORAL Take by mouth. - cholecalciferol, vitamin D3, (VITAMIN D3 ORAL) Take by mouth. - blood-glucose meter,mobile dev (HOLLY BLOOD GLUCOSE MONITOR) lyn - albuterol HFA (PROAIR HFA) 90 mcg/actuation inhaler Inhale 2 Puffs as instructed every 4 hours as needed. - omega-3 fatty acids (FISH OIL CONCENTRATE) 1,000 mg cap Take 1,000 mg by mouth once daily. - HYDROcodone-acetaminophe n (NORCO) 5-325 mg per tablet Take 5-325 tablets by mouth twice daily as needed. - multivit-minerals/ferrou s fum (MULTI VITAMIN ORAL) Take by mouth. - TIZANIDINE HCL (ZANAFLEX ORAL) Take by mouth twice daily. Problem List As Of Date 02/24/2024 Noted Resolved CHOLELITHIASIS NOS [K80.20] 10/17/2005 05/23/2006 Mild intermittent asthma without complication [*05/23/2006 03/30/2018 Common migraine [G43.009] 05/23/2006 Abnormal maternal glucose tolerance, antepartum*05/23/2006 03/30/2018 Family history of diabetes mellitus [Z83.3] 05/23/2006 03/30/2018 Polycystic ovaries [E28.2] 05/23/2006 Obesity due to excess calories [E66.09] 05/23/2006 Calculus of ureter [N20.1] 05/23/2006 03/30/2018 Lumbago [M54.50] 05/23/2006 Depressive disorder [F32.A] 08/20/2006 Goiter, euthyroid [E04.9] 09/28/2006 Fatty Liver [K76.0] 06/05/2009 Hyperlipidemia [E78.5] 06/05/2009 Diabetes mellitus type 2, controlled, without c*06/05/2009 Tobacco use disorder [F17.200] 06/05/2009 Porokeratosis [Q82.8] 02/12/2011 Cervicalgia [M54.2] 01/14/2013 Callus of foot [L84] 03/30/2018 Displacement of lumbar intervertebral disc with*08/04/2014 Sprain of lumbar region [S33.5XXA] 08/04/2014 03/30/2018 RLS (restless legs syndrome) [G25.81] 03/30/2018 Transition of care performed with sharing of cl*11/29/2018 08/23/2021 Hospital discharge follow-up [Z09] 08/22/2021 Menorrhagia with irregular cycle [N92.1] 12/16/2023 Dysmenorrhea [N94.6] 12/16/2023 Prescriptions ordered this encounter Disp Refills Start End MAGNESIUM OXIDE 400 MG (241.3 MG MAG* 90 t* 3 02/27/2024 02/26/2025 Route: ORAL Sig: Take 1 tablet by mouth once daily. Medications Discontinued During This Encounter Prescriptions - celecoxib (CELEBREX) 200 mg capsule (Discontinued) Take 200 mg (more content not included)... Normal [facility] CNOVon 02-23-2024 CNOV Office Visit (OBGYWM ) -------- ANA HERNANDEZ ([id number]) 1980 F Date Time Provider Department 02/23/24 9:20 AM ZHENG LUNA OBGYWM During your visit today, we recorded the following information about you: Blood pressure Weight 108/70 92.4 kg Zheng Luna MD 02/23/2024 9:53 AM Signed DATE OF SERVICE: 02/23/2024 PROBLEM: Ana Hernandez presents for postop visit. SURGERY AND DATE: 02/05/2024 EUA, cervical dilation with attempted hysteroscopy PATHOLOGY: N/A SUBJECTIVE/INTERVAL HISTORY: Ana Hernandez is doing well. No pain, fevers, chills, vaginal discharge or bleeding, nausea or vomiting. OBJECTIVE: VITALS: BP 108/70 Wt 92.4 kg (203 lb 12.8 oz) LMP 12/12/2023 (Exact Date) BMI 37.28 kg/m? ABDOMEN: Non distended. LOWER EXTREMITIES: No pitting edema. ASSESSMENT: post op PLAN: Patient requesting hysterectomy given irregular and heavy bleeding. She understands possible polyp and risk for hyperplasia or malignancy. She understands risk with hysterectomy. She is not interested in medical management at this time of DUB. Discussed possible lupis menopause. Will need medical clearance for hysterectomy and discussed this with patient. Surgery sheet completed for TLH, BS, cysto. Zheng Luna DO Allergies As of Date: 02/23/2024 Noted Allergy Reaction AVELOX (MOXIFLOXACIN HCL) 08/10/2009 2 - Rash DOXY (DOXYCYCLINE) 06/09/2009 8 - GI Upset PENICILLINS 10/17/2005 14 - Other: See Comments Comments: Mother does not recall what the reaction was and was told that she cannot take it PROZAC (FLUOXETINE HCL) 05/08/2011 14 - Other: See Comments Comments: Mother had side effects from this Date Reviewed: 02/23/2024 Reviewed by: Sadaf Sorensen MA - Fully Assessed Reason for Visit: Post-Op Visit [1236] Primary Visit Diagnosis:Post-operative state [Z98.890] Prescriptions as of 02/23/2024 - norethindrone (AYGESTIN) 5 mg tablet Take 1 tablet by mouth once daily. - metFORMIN (GLUCOPHAGE) 850 mg tablet Take 1 tablet by mouth two times a day with meals. - amitriptyline (ELAVIL) 50 mg tablet Take 1-2 tablets by mouth daily at bedtime. - busPIRone HCl 30 mg tablet Take 1 tablet by mouth two times a day. - desvenlafaxine ER (PRISTIQ) 25 mg 24 hr tablet Take 1 tablet by mouth once daily. - simvastatin (ZOCOR) 40 mg tablet Take 1 tablet by mouth daily at bedtime. - topiramate (TOPAMAX) 50 mg tablet Take 1 tablet by mouth two times a day. - propranolol (INDERAL) 40 mg tablet Take 0.5 tablets by mouth two times a day. - ZINC ORAL Take by mouth. - cholecalciferol, vitamin D3, (VITAMIN D3 ORAL) Take by mouth. - blood-glucose meter,mobile dev (HOLLY BLOOD GLUCOSE MONITOR) lyn - albuterol HFA (PROAIR HFA) 90 mcg/actuation inhaler Inhale 2 Puffs as instructed every 4 hours as needed. - omega-3 fatty acids (FISH OIL CONCENTRATE) 1,000 mg cap Take 1,000 mg by mouth once daily. - HYDROcodone-acetaminophe n (NORCO) 5-325 mg per tablet Take 5-325 tablets by mouth twice daily as needed. - multivit-minerals/ferrou s fum (MULTI VITAMIN ORAL) Take by mouth. - celecoxib (CELEBREX) 200 mg capsule Take 200 mg by mouth once daily. - TIZANIDINE HCL (ZANAFLEX ORAL) Take by mouth twice daily. Problem List As Of Date 02/23/2024 Noted Resolved CHOLELITHIASIS NOS [K80.20] 10/17/2005 05/23/2006 Mild intermittent asthma without complication [*05/23/2006 03/30/2018 Common migraine [G43.009] 05/23/2006 Abnormal maternal glucose tolerance, antepartum*05/23/2006 03/30/2018 Family history of diabetes mellitus [Z83.3] 05/23/2006 03/30/2018 Polycystic ovaries [E28.2] 05/23/2006 Obesity due to excess calories [E66.09] 05/23/2006 Calculus of ureter [N20.1] 05/23/2006 03/30/2018 Lumbago [M54.50] 05/23/2006 Depressive disorder [F32.A] 08/20/2006 Goiter, euthyroid [E04.9] 09/28/2006 Fatty Liver [K76.0] 06/05/2009 Hyperlipidemia [E78.5] 06/05/2009 Diabetes mellitus type 2, controlled, without c*06/05/2009 Tobacco use disorder [F17.200] 06/05/2009 Porokeratosis [Q82.8] 02/12/2011 Cervicalgia [M54.2] 01/14/2013 Callus of foot [L84] 03/30/2018 Displacement of lumbar intervertebral disc with*08/04/2014 Sprain of lumbar region [S33.5XXA] 08/04/2014 03/30/2018 RLS (restless legs syndrome) [G25.81] 03/30/2018 Transition of care performed with sharing of cl*11/29/2018 08/23/2021 Hospital discharge follow-up [Z09] 08/22/2021 Menorrhagia with irregular cycle [N92.1] 12/16/2023 Dysmenorrhea [N94.6] 12/16/2023 Encounter Status:Closed by ZHENG LUNA on 02/23/24 Normal [facility] Bedside Glucoseon 02-05-2024 FINGERSTICK GLU 117 mg/dL High 74-106 [facility] Comment on above: Result Comment: ISABELLA HARRIS OF PATIENT CARE PER NURSING PROTOCOL Performed By: #### L 501.080 #### [facility] [address] [place], [address] Discharge Instructionon Discharge Instruction [facility] Medical Records Department [address] [place] [address] Instructions for Home/Discharge Instructions 02/05/24 1353 MR#: [id number] Acct: [id number] Name: ANA HERNANDEZ Rep #: [id number] : 1980 44 From: Zheng Luna DO PCP: WILBERTO Andrews [place] [facility] [place] Instructions Diet Discharge Diet: No restrictions Activity Discharge Activity: May Drive (once you are more than 24 hours out from surgery) and May Shower (once you are more than 24 hours out from surgery) May resume sexual activity in: 1-2 weeks (nothing in the vagina for 1-2 weeks while you are having the bleeding) Weight Bearing Status: Weight bearing as tolerated Lifting Restrictions: none Dressing / Incision Call your doctor if you observe: Fever of 101 or Higher, Coldness, Increased Pain, Numbness or Tingling, Change in Color, Inability to urinate, Inability to have a bowel movement, Using more than 1 pad per hour, Shortness of breath, Dizziness, Fainting spells, Swelling in the ankles, Chest pain, Prolonged hiccupping, Increased palpitations (irregular heartbeat), Calf discomfort and Uncontrolled pain Cleanse incision/area with: Soap Water Follow Up Care Please Follow Up With: Zheng Luna DO When: 1-2 weeks Test Results: Test results from this visit will be discussed in further detail at your follow-up appointment, if applicable. Discharge Plan Admission Primary Reason for Your Visit: surgery Attending Provider: Zheng Luna Primary Care Provider: Albert Ferrer Instructions Print Language: [place]an Discharge Orders/Prescriptions Prescriptions: Continued multivitamin tablet 1 tab PO DAILY metformin 850 mg tablet 850 mg PO BID amitriptyline 50 mg tablet 100 mg PO QHS omega-3 fatty acids [Fish Oil Concentrate] 1,000 mg capsule 1,000 mg PO BID desvenlafaxine succinate [Pristiq] 25 mg tablet extended release 24 hr 25 mg PO DAILY propranolol 20 mg tablet 20 mg PO BID Qty: 60 9RF Nurtec ODT 75 mg tablet,disintegrating 75 mg PO DAILY PRN (Reason: migraine headache) Qty: 16 9RF topiramate 100 mg tablet 100 mg PO BID Qty: 60 9RF celecoxib 200 MG capsule 200 mg PO DAILY Patient Comments: tizanidine 4 MG tablet 4 mg PO BID Patient Comments: take 1 tablet by mouth twice a day if needed buspirone 30 MG tablet 30 mg PO BID Patient Comments: take 1 tablet by mouth twice a day acetaminophen 650 MG/20 ML solution 500 mg PO Q4H PRN PRN (Reason: Headache/Temp>99F) 0RF ibuprofen 600 MG tablet 600 mg PO 4X/DAY PRN (Reason: Headache) Qty: 1 0RF simvastatin 40 mg tablet 40 mg PO DAILY Patient Comments: take 1 tablet by mouth at bedtime Referrals / Follow Up: Albert Ferrer PA [Primary Care Provider] - Disposition Disposition (needs filled in before D/C Order can be placed): Home, Self Care 02/05/24 1356 Zheng Luna DO CC: WILBERTO Andrews Signed Normal [facility] Operative Reporton 4 Operative Report [facility] Medical Records Department [address] [place] [address] Operative Report 02/05/24 1339 MR#: [id number] Acct: [id number] Name: ANA HERNANDEZ Rep #: [id number] : 1980 44 From: Zheng Luna DO PCP: WILBERTO Andrews Status:[facility] Location: [place] [address] Problems Associated Problem List Diagnoses (1) DUB (dysfunctional uterine bleeding): (2) Menorrhagia: Report of Operation Date of Procedure: 02/05/24 Pre-Operative Diagnosis: Menorrhagia, DUB, endometrial biopsy with proliferative endometrium and possible polyp Post-Operative Diagnosis: As above Surgery/Procedure Performed:: Attempted hysteroscopy Description of Surgical Findings:: Normal appearing vaginal tissue and cervix Surgeon: Zheng Luna senior datastage developer: None Type of Anesthesia: MAC Special Medications: None Specimen's removed: None Drains: None Estimated Blood Loss (mL): < 50 Fluids Replaced: 550 cc fluid deficit Description of Procedure: Patient was taken to operating room where MAC anesthesia was initiated. Patient was prepped and draped in the dorsal lithotomy position using yellow fin stirrups. A weighted speculum placed in t he vagina to expose the cervix. A single-tooth tenaculum was placed on the anterior lip of the cervix. The cervix was easily serially dilated. The uterus then sounded to 8 cm. The Symphion hysteroscope was then advanced and a false tract was noted, and the hysteroscope was unable to be advanced to the uterine fundus. The hysteroscope was then removed. Bleeding was hemostatic. All instruments removed from the vagina and a vaginal sweep was performed. Instrument and sponge counts were correct. Patient was taken to recovery in stable condition. Grafts/Implants Used: None Procedure Start Time: 13:22 Procedure Stop Time: 13:37 Complications None Admit VTE Documentation VTE Present on Admission: No VTE Mechan Device Prophylaxis: SCD's 02/05/24 1344 Cosigner Signature (if applicable): CC: Dr. Zheng Luna DO; WILBERTO Andrews Signed Normal [facility] ,Urineon 02-05-2024 Beta HCG ( test) Ql (U) Negative Normal [facility] Comment on above: Result Comment: Very dilute urine specimens, as indicated by a low specific gravity, may not contain telemarketing representative levels of hCG. If is still suspected, a first morning urine specimen should be collected 48 hours later and tested. Performed By: #### L 100.0500, BTSPAT, L501.5200, L500.4050 #### [facility] [address] [place], [address] UA DIP,URINE HCG (POC)on Beta HCG ( test) Ql (U) Negative Negative [facility] Comment on above: Location:[facility], [address], [place], [address] Classification Officer (POCT) Internal QC OK [facility] Location:[facility], [address] , [place], [address] [facility] POINT OF CARE [facility] CBC W Auto Differential pane l (Bld)on 12-16-2023 Basophils (Bld) [#/Vol] 0.00 10*3/uL <0.11 k/uL [facility] Basophils/100 WBC (Bld) 0.0 % [facility] Differential cell count method Nom (Bld) Manual [facility] Eosinophils (Bld) [#/Vol] 0.48 10*3/uL High <0.46 k/uL [facility] Eosinophils/100 WBC (Bld) 5.0 % [facility] Erythrocyte distribution width (RBC) [Ratio] 12.7 % 11.5 - 15.0 % [facility] Hematocrit (Bld) [Volume fraction] 38.0 % 36.0 - 46.0 % [facility] Hemoglobin (Bld) [Mass/Vol] 12.6 g/dL 11.5 - 15.5 g/dL [facility] Lymphocytes (Bld) [#/Vol] 3.93 10*3/uL 1.00 - 4.00 k/uL [facility] Lymphocytes/100 WBC (Bld) 41.0 % [facility] MCH (RBC) [Entitic mass] 31.0 pg 26.0 - 34.0 pg [facility] MCHC (RBC) [Mass/Vol] 33.2 g/dL 30.5 - 36.0 g/dL [facility] MCV (RBC) [Entitic vol] 93.4 fL 80.0 - 100.0 fL [facility] Monocytes (Bld) [#/Vol] 0.58 10*3/uL <0.87 k/uL [facility] Monocytes/100 WBC (Bld) 6.0 % [facility] Neutrophils (Bld) [#/Vol] 4.60 10*3/uL 1.45 - 7.50 k/uL [facility] Neutrophils/100 WBC (Bld) 48.0 % [facility] Nucleated RBC (Bld) [#/Vol] <0.01 k/uL [facility] Nucleated RBC/100 WBC (Bld) [Ratio] 0.0 /100 WBC [facility] Platelet mean volume (Bld) [Entitic vol] 10.6 fL 9.0 - 12.7 fL [facility] Platelets (Bld) [#/Vol] 326 10*3/uL 150 - 400 k/uL [facility] Platelets Estimate (Bld) [#/Vol] Adequate [facility] RBC (Bld) [#/Vol] 4.07 10*6/uL 3.90 - 5.2 0 m/uL [facility] Red Cell Morph Reviewed: normal [facility] WBC (Bld) [#/Vol] 9.59 10*3/uL 3.70 - 11. 00 k/uL [facility] Iron and Iron binding capaci ty panelon 12-16-2023 Iron [Mass/Vol] 56 ug/dL 41 - 186 ug/dL [facility] Iron binding capacity [Mass/Vol] 287 ug/dL 232 - 386 ug/dL [facility] Iron/TIBC [Molar ratio] 19.5 % 15.0 - 57.0 % [facility] .Urinalysis Microscopic (AO) on 02-04-2023 UA Bacteria Trace Abnormal [facility] ([place]) Comment on above: Performed By: #### P REGU, UA, UAMICAO #### [address] [place], [place] [address] UA RBC 0-5 Abnormal None Seen [facility] ([place]) Comment on above: Performed By: #### P REGU, UA, UAMICAO #### [address] [address] UA Squam Epithelial 0-5 Abnormal None Seen [facility] ([place]) Comment on above: Performed By: #### P REGU, UA, UAMICAO #### [address] [address] UA WBC 0-5 Abnormal None Seen [facility] ([place]) Comment on above: Performed By: #### P REGU, UA, UAMICAO #### [address] [place], [place] [address] LABORATORYOrdered By: Sotero [place] on 02-04-2023 Appearance (U) Clear (02/04/23 3:09 PM) Invalid Interpretation Code Clear AO Auto Urine SS Bacteria LM.HPF (Urine sed) [#/Area] Trace /HPF Invalid Interpretation Code AO Auto Urine SS Bilirubin Ql (U) Small *ABN* (02/04/23 3:09 PM) Invalid Interpretation Code Negative AO Auto Urine SS Color (U) Yellow (02/04/23 3:09 PM) Invalid Interpretation Code AO Auto Urine SS Glucose Test strip (U) [Mass/Vol] Negative Invalid Interpretation Code Negativemg/dL AO Auto Urine SS HCG ( test) Ql Negative (02/04/23 3:09 PM) Invalid Interpretation Code AO Manual Urine SS Hemoglobin Auto test strip (U) [Mass/Vol] Small *ABN* (02/04/23 3:09 PM) Invalid Interpretation Code Negative AO Auto Urine SS Ketones Ql (U) Negative Invalid Interpretation Code Negativemg/dL AO Auto Urine SS test (u) int Not detected Invalid Interpretation Code AO Manual Urine SS UA Leuk Est Trace *ABN* (02/04/23 3:09 PM) Invalid Interpretation Code Negative AO Auto Urine SS UA Nitrite Negative (02/04/23 3:09 PM) Invalid Interpretation Code Negative AO Auto Urine SS UA pH 5.5 (02/04/23 3:09 PM) Invalid Interpretation Code 5.0 - 8.0 AO Auto Urine SS UA Protein 30 mg/dL Invalid Interpretation Code Negativemg/dL AO Auto Urine SS UA RBC 0-5 /HPF Invalid Interpretation Code None Seen/HPF AO Auto Urine SS UA Spec Grav >=1.030 *ABN* (02/04/23 3:09 PM) Invalid Interpretation Code 1.015-1.025 AO Auto Urine SS UA Specimen Type Clean Catch (02/04/23 3:09 PM) Invalid Interpretation Code AO Auto Urine SS UA Squam Epithelial 0-5 /HPF Invalid Interpretation Code None Seen/HPF AO Auto Urine SS UA Urobilinogen 0.2 E.U./dL Invalid Interpretation Code 0.2-1.0E.U./dL AO Auto Urine SS WBC LM.HPF (Urine sed) [#/Area] 0-5 /HPF Invalid Interpretation Code None Seen/HPF AO Auto Urine SS PREGUon 02-04-2023 HCG ( test) Ql (U) Negative Normal [facility] ([place]) Comment on above: Performed By: #### P REGU, UA, UAMICAO #### [address] [address] test (u) int Not detected Invalid Interpretation Code [facility] ([place]) Comment on above: Performed By: #### P REGU, UA, UAMICAO #### [place] [address] UAon 02-04-2023 Color (U) Yellow Normal [facility] ([place]) Comment on above: Performed By: #### P REGU, UA, UAMICAO #### [place] [address] Glucose (U) [Mass/Vol] Negative Normal Negative [facility] ([place]) Comment on above: Performed By: #### P REGU, UA, UAMICAO #### [place] [address] Ketones Ql (U) Negative Normal Negative [facility] ([place]) Comment on above: Performed By: #### P REGU, UA, UAMICAO #### [place] [address] UA Appear Clear Normal Clear [facility] ([place]) Comment on above: Performed By: #### P REGU, UA, UAMICAO #### [place] [address] UA Bili Small Abnormal Negative [facility] ([place]) Comment on above: Performed By: #### P REGU, UA, UAMICAO #### [place] [address] UA Blood Small Abnormal Negative [facility] ([place]) Comment on above: Performed By: #### P REGU, UA, UAMICAO #### [place] [address] UA Leuk Est Trace Abnormal Negative [facility] ([place]) Comment on above: Performed By: #### P REGU, UA, UAMICAO #### [place] [address] UA Nitrite Negative Normal Negative [facility] ([place]) Comment on above: Performed By: #### P REGU, UA, UAMICAO #### [place] [address] [place], [place] [address] UA pH 5.5 Normal 5.0 - 8.0 [facility] ([place]) Comment on above: Performed By: #### P REGU, UA, UAMICAO #### [address] [address] UA Protein 30 mg/dL Normal Negative [facility] ([place]) Comment on above: Performed By: #### P REGU, UA, UAMICAO #### [address] [address] UA Spec Grav >=1.030 Abnormal 1.015-1.025 [facility] ([place]) Comment on above: Performed By: #### P REGU, UA, UAMICAO #### [address] [address] UA Specimen Type Clean Catch Normal [facility] ([place]) Comment on above: Performed By: #### P REGU, UA, UAMICAO #### [address] [address] UA Urobilinogen 0.2 E.U./dL Normal 0.2-1.0 [facility] ([place]) Comment on above: Performed By: #### P REGU, UA, UAMICAO #### [address] [address] XR ABDOMEN APon 02-04-2023 XR ABDOMEN AP ORIGINAL EXAMINATION: ONE SUPINE XRAY VIEW(S) OF THE ABDOMEN02/04/2023 3:24 pm COMPARISON: None available at time of dictation. HISTORY: ORDERING SYSTEM PROVIDED HISTORY: Reason for Exam: constipation FINDINGS: Nonobstructive bowel gas pattern. Moderate stool in the colon. No calculi over the renal shadows, expected course of bilateral ureters, or urinary bladder. No acute osseous abnormality. IMPRESSION: No acute radiographic findings. Moderate colon stool burden. I have personally reviewed the images of this examination and agree with the resident's findings and interpretation Interpreted by: William Lopez MD Preliminary Report By: Anibal Stern Electronically signed By William Lopez MD Dictated Date: 02/04/2023 3:50:12 PM Prelim Date: 02/04/2023 4:03:53 PM Sign Date: 02/04/2023 4:03:53 PM Ordering Provider: ISABELLE Sin [facility] ([place]) KEVAN BELLAMY Barb ALVARO Wu 04-0 [facility] XR Foot - left AP and Latera l and obliqueon 12-03-2021 IMPRESSION: Calcaneal enthesopathy. Payroll Coordinator: MARINE Transcribe Date/Time: Dec 03 2021 5:15A Dictated by : CHAPITO TYLER MD This examination was interpreted and the report reviewed and electronically signed by: CHAPITO TYLER MD on Dec 03 2021 5:16AM [facility] DIVISION OF RADIOLOGY * * *Final Report* * * DATE OF EXAM: Dec 01 2021 11:39AM WOX 5336 - XR FOOT 3V AP/LAT/OBL LT / PROCEDURE REASON: Foot pain, left * * * * Physician Interpretation * * * * CLINICAL INDICATION: Pain TECHNIQUE: 3 view radiographic study of the left foot COMPARISON: None FINDINGS: No acute fracture or dislocation identified. Joint spaces preserved. Plantar calcaneal and miniscule dorsal calcaneal enthesophyte. DIVISION OF RADIOLOGY Provider, Her[facility] [place] - 12/03/2021 * * *Final Report* * * DATE OF EXAM: Dec 01 2021 11:39AM WOX 5336 - XR FOOT 3V AP/LAT/OBL LT / PROCEDURE REASON: Foot pain, left * * * * Physician Interpretation * * * * CLINICAL INDICATION: Pain TECHNIQUE: 3 view radiographic study of the left foot COMPARISON: None FINDINGS: No acute fracture or dislocation identified. Joint spaces preserved. Plantar calcaneal and miniscule dorsal calcaneal enthesophyte. IMPRESSION IMPRESSION: Calcaneal enthesopathy. Payroll Coordinator: PSCB Transcribe Date/Time: Dec 03 2021 5:15A Dictated by : CHAPITO TYLER MD This examination was interpreted and the report reviewed and electronically signed by: CHAPITO TYLER MD on Dec 03 2021 5:16AM EST [facility] XR Foot - left AP and Latera l and obliqueOrdered By: Ccf Provider on 12-03-2021 [facility] XR Foot - left AP and Latera l and obliqueon 12-01-2021 Radiology Study observation (narrative) [facility] XR Finger - right AP and Lat eral and obliqueon 08-02-2021 Radiology Study observation (narrative) [facility] IMPRESSION: Negative right thumb radiographs. Payroll Coordinator: MARINE Transcribe Date/Time: Aug 02 2021 7:41P Dictated by : MIRZA GARCIA MD This examination was interpreted and the report reviewed and electronically signed by: MIRZA GARCIA MD on Aug 02 2021 7:42PM EST DIVISION OF RADIOLOGY * * *Final Report* * * DATE OF EXAM: Aug 02 2021 7:38PM WOX 5319 - XR DIGIT 3V FRONTAL/LAT/OBL RT / PROCEDURE REASON: Pain of right thumb * * * * Physician Interpretation * * * * XR DIGIT 3V FRONTAL/LAT/OBL RT CLINICAL HISTORY: Pain of right thumb COMPARISON: None. RESULT: No acute fracture. Joint spaces are preserved. DIVISION OF RADIOLOGY Provider, [facility] - 08/02/2021 * * *Final Report* * * DATE OF EXAM: Aug 02 2021 7:38PM WOX 5319 - XR DIGIT 3V FRONTAL/LAT/OBL RT / PROCEDURE REASON: Pain of right thumb * * * * Physician Interpretation * * * * XR DIGIT 3V FRONTAL/LAT/OBL RT CLINICAL HISTORY: Pain of right thumb COMPARISON: None. RESULT: No acute fracture. Joint spaces are preserved. IMPRESSION IMPRESSION: Negative right thumb radiographs. Payroll Coordinator: PSCB Transcribe Date/Time: Aug 02 2021 7:41P Dictated by : MIRZA GARCIA MD This examination was interpreted and the report reviewed and electronically signed by: MIRZA GARCIA MD on Aug 02 2021 7:42PM EST [facility] XR Finger - right AP and Lat eral and obliqueOrdered By: Cc Provider on 08-02-2021 [facility] COVID PCR, SCREENING CONGREG ATEon 02-24-2020 CORONAVIRUS 2019,PCR NOT DETECTED Normal Not Detected [facility] Comment on above: Result Comment: This assay is designed to detect the N, ORF1ab and/or S genes of SARS-CoV-2 via nucleic acid amplification. A Negative (NOT DETECTED) result does not preclude 2019-nCoV infection since the adequacy of sample collection and/or low viral burden may result in presence of viral nucleic acids below the clinical sensitivity of this test method. Negative (NOT DETECTED) result should not be used as the sole basis for treatment or other patient management decisions. Rather negative results should be combined with clinical observations, patient history, and epidemiological information to make patient management decisions. Fact sheet for providers: https://www.fda.gov/media/525695/download Fact sheet for patients: https://www.fda.gov/media/740714/download This test has received FDA Emergency Use Authorization (EUA) and has been verified by [facility]). This test is only authorized for the duration of time that circumstances exist to justify the authorization of the emergency use of in vitro diagnostic tests for the detection of SARS-CoV-2 virus and/or diagnosis of COVID-19 infection under section 564(b)(1) of the Act, 21 U.S.C. 360bbb-3(b)(1), unless the authorization is terminated or revoked sooner. [facility]) is certified under CLIA-88 as qualified to perform high complexity testing. This tests analytical performance characteristics have been determined by [facility]. Testing is performed at [facility] is located at [address] [place] [address] (CLIA License #[id number], CAP #[id number]). Performed By: #### C VCLA #### [facility] [address] [place] [address] COVID PCR, SCREENING CONGREG ATEon 02-23-2020 Lab Specimen Source Nasal, Nasopharyngeal Normal [facility] Comment on above: Performed By: #### C VCLA #### [facility] [address] [place] [address] Vital Signs Date Time Vital Sign Value Performing Clinician Facility 02-17-2025 11:25-040 Body height 157.5 cm [facility] 2 [facility] 02-17-2025 11:25-0400 Body mass index (BMI) [Ratio] 35.12 kg/m2 [facility] 2 [facility] 02-17-2025 11:25-0400 Body temperature 97.9 [degF] [facility] 2 [facility] 02-17-2025 11:25-0400 Body weight 87.09 kg [facility] 2 [facility] 02-17-2025 11:25-0400 Diastolic blood pressure 83 mm[Hg] [facility] 2 [facility] 02-17-2025 11:25-0400 Heart rate 64 /min [facility] 2 [facility] 02-17-2025 11:25-0400 Respiratory rate 14 /min [facility] 2 [facility] 02-17-2025 11:25-0400 SaO2% (BldA) [Mass fraction] 97 % [facility] 2 [facility] 02-17-2025 11:25-0400 Systolic blood pressure 122 mm[Hg] [facility] 2 [facility] 01-30-2025 17:00-0400 Body temperature 98 [degF] Dr. Jostin Stone DO Work Phone: [facility] 01-30-2025 17:00-0400 Diastolic blood pressure 74 mm[Hg] Dr. Jostin Stone DO Work Phone: [facility] 01-30-2025 17:00-0400 Heart rate 61 /min Dr. Jostin Stone DO Work Phone: [facility] 01-30-2025 17:00-0400 Respiratory rate 16 /min Dr. Jostin Stone DO Work Phone: [facility] 01-30-2025 17:00-0400 SaO2% (BldA) [Mass fraction] 99 % Dr. Jostin Stone DO Work Phone: [facility] 01-30-2025 17:00-0400 Systolic blood pressure 128 mm[Hg] Dr. Jostin Stone DO Work Phone: [facility] 01-30-2025 14:30-0400 Body mass index (BMI) [Ratio] 35.4 kg/m2 Dr. Jostin Stone DO Work Phone: [facility] 01-30-2025 14:30-0400 Body weight 87.[address] Jostin Stone DO Work Phone: [facility] 01-30-2025 13:51-0400 Body height 157.[address] Jostin Stone DO Work Phone: [facility] 01-17-2025 23:03-0400 Body temperature 98.2 [degF] Dr. Jostin Stone DO Work Phone: [facility] 01-17-2025 23:03-0400 Diastolic blood pressure 91 mm[Hg] Dr. Jostin Stone DO Work Phone: [facility] 01-17-2025 23:03-0400 Heart rate 68 /min Dr. Jostin Stone DO Work Phone: [facility] 01-17-2025 23:03-0400 Respiratory rate 18 /min Dr. Jostin Stone DO Work Phone: [facility] 01-17-2025 23:03-0400 SaO2% (BldA) [Mass fraction] 95 % Dr. Jostin Stone DO Work Phone: [facility] 01-17-2025 23:03-0400 Systolic blood pressure 146 mm[Hg] Dr. Jostin Stone DO Work Phone: [facility] 01-17-2025 18:27-0400 Body height 157.[address] Jostin Stone DO Work Phone: [facility] 01-17-2025 18:27-0400 Body mass index (BMI) [Ratio] 35.7 kg/m2 Dr. Jostin Stone DO Work Phone: [facility] 01-17-2025 18:27-0400 Body weight 88.[address] Jostin Stone DO Work Phone: [facility] 01-17-2025 18:05-0400 Body mass index (BMI) [Ratio] 35.27 kg/m2 David Alba APRN.BIOINFORMATICS COMPUTER SCIENTIST Work Phone: [facility] 01-17-2025 18:05-0400 Body temperature 97 [degF] David Alba APRN.BIOINFORMATICS COMPUTER SCIENTIST Work Phone: [facility] 01-17-2025 18:05-0400 Body weight 88.6 kg David Alba CONCRETE STONE FINISHER.BIOINFORMATICS COMPUTER SCIENTIST Work Phone: [facility] 01-17-2025 18:05-0400 Diastolic blood pressure 84 mm[Hg] David Alba CONCRETE STONE FINISHER.BIOINFORMATICS COMPUTER SCIENTIST Work Phone: [facility] 01-17-2025 18:05-0400 Heart rate 78 /min David Alba CONCRETE STONE FINISHER.BIOINFORMATICS COMPUTER SCIENTIST Work Phone: [facility] 01-17-2025 18:05-0400 Respiratory rate 16 /min David Alba CONCRETE STONE FINISHER.BIOINFORMATICS COMPUTER SCIENTIST Work Phone: [facility] 01-17-2025 18:05-0400 SaO2% (BldA) [Mass fraction] 97 % David Alba CONCRETE STONE FINISHER.BIOINFORMATICS COMPUTER SCIENTIST Work Phone: [facility] 01-17-2025 18:05-0400 Systolic blood pressure 160 mm[Hg] David Alba CONCRETE STONE FINISHER.BIOINFORMATICS COMPUTER SCIENTIST Work Phone: [facility] 12-20-2024 09:09-0400 Body mass index (BMI) [Ratio] 35.75 kg/m2 Myranda Dallas CONCRETE STONE FINISHER.BIOINFORMATICS COMPUTER SCIENTIST Work Phone: [facility] 12-20-2024 09:09-0400 Body temperature 97 [degF] Myranda Dallas CONCRETE STONE FINISHER.BIOINFORMATICS COMPUTER SCIENTIST Work Phone: [facility] 12-20-2024 09:09-0400 Body weight 89.81 kg Myranda Kauffmanan CONCRETE STONE FINISHER.BIOINFORMATICS COMPUTER SCIENTIST Work Phone: [facility] 12-20-2024 09:09-0400 Diastolic blood pressure 70 mm[Hg] Myranda Kauffmanan CONCRETE STONE FINISHER.BIOINFORMATICS COMPUTER SCIENTIST Work Phone: [facility] 12-20-2024 09:09-0400 Heart rate 72 /min Myranda Kauffmanan CONCRETE STONE FINISHER.BIOINFORMATICS COMPUTER SCIENTIST Work Phone: [facility] 12-20-2024 09:09-0400 SaO2% (BldA) [Mass fraction] 94 % Myranda Suppan CONCRETE STONE FINISHER.BIOINFORMATICS COMPUTER SCIENTIST Work Phone: [facility] 12-20-2024 09:09-0400 Systolic blood pressure 128 mm[Hg] Myranda Suppan CONCRETE STONE FINISHER.BIOINFORMATICS COMPUTER SCIENTIST Work Phone: [facility] 11-18-2024 09:43-0400 Body mass index (BMI) [Ratio] 35.93 kg/m2 Myranda Suppan CONCRETE STONE FINISHER.BIOINFORMATICS COMPUTER SCIENTIST Work Phone: [facility] 11-18-2024 09:43-0400 Body temperature 97.5 [degF] Myranda Suppan CONCRETE STONE FINISHER.BIOINFORMATICS COMPUTER SCIENTIST Work Phone: [facility] 11-18-2024 09:43-0400 Body weight 90.27 kg Myranda Suppan CONCRETE STONE FINISHER.BIOINFORMATICS COMPUTER SCIENTIST Work Phone: [facility] 11-18-2024 09:43-0400 Diastolic blood pressure 72 mm[Hg] Myranda Suppan CONCRETE STONE FINISHER.BIOINFORMATICS COMPUTER SCIENTIST Work Phone: [facility] 11-18-2024 09:43-0400 Heart rate 99 /min Myranda Suppan CONCRETE STONE FINISHER.BIOINFORMATICS COMPUTER SCIENTIST Work Phone: [facility] 11-18-2024 09:43-0400 SaO2% (BldA) [Mass fraction] 98 % Myranda Suppan CONCRETE STONE FINISHER.BIOINFORMATICS COMPUTER SCIENTIST Work Phone: [facility] 11-18-2024 09:43-0400 Systolic blood pressure 136 mm[Hg] Myranda Suppan CONCRETE STONE FINISHER.BIOINFORMATICS COMPUTER SCIENTIST Work Phone: [facility] 04-22-2024 13:08-0400 Body mass index (BMI) [Ratio] 36.47 kg/m2 Zheng Luna MD Work Phone: [facility] 04-22-2024 13:08-0400 Body weight 91.63 kg Zheng Luna MD Work Phone: [facility] 04-22-2024 13:08-0400 Diastolic blood pressure 72 mm[Hg] Zheng Luna MD Work Phone: [facility] 04-22-2024 13:08-0400 Systolic blood pressure 110 mm[Hg] Zheng Luna MD Work Phone: [facility] 04-22-2024 10:20-0400 Body height 158.5 cm Jose Tsai DO Work Phone: [facility] 04-22-2024 10:20-0400 Body mass index (BMI) [Ratio] 36.65 kg/m2 Jose Liui DO Work Phone: [facility] 04-22-2024 10:20-0400 Body temperature 98.01 [degF] Jose Liui DO Work Phone: [facility] 04-22-2024 10:20-0400 Body weight 92.08 kg Jose Liui DO Work Phone: [facility] 04-22-2024 10:20-0400 Diastolic blood pressure 71 mm[Hg] Jose Liui DO Work Phone: [facility] 04-22-2024 10:20-0400 Heart rate 64 /min Jose Liui DO Work Phone: [facility] 04-22-2024 10:20-0400 SaO2% (BldA) [Mass fraction] 97 % Jose Liui DO Work Phone: [facility] 04-22-2024 10:20-0400 Systolic blood pressure 106 mm[Hg] Jose Alexai DO Work Phone: [facility] 04-02-2024 09:170400 Body height 158.1 cm Zheng Luna MD Work Phone: [facility] 04-02-2024 09:17-0400 Body mass index (BMI) [Ratio] 36.65 kg/m2 Zheng Luna MD Work Phone: [facility] 04-02-2024 09:170400 Body weight 91.63 kg Zheng Luna MD Work Phone: [facility] 04-02-2024 09:17-0400 Diastolic blood pressure 78 mm[Hg] Zheng Luna MD Work Phone: [facility] 04-02-2024 09:17-0400 Heart rate 86 /min Zheng Luna MD Work Phone: [facility] 04-02-2024 09:17-0400 Respiratory rate 16 /min Zheng Luna MD Work Phone: [facility] 04-02-2024 09:17-0400 Systolic blood pressure 116 mm[Hg] Zheng Luna MD Work Phone: [facility] 03-15-2024 08:33-0400 Body mass index (BMI) [Ratio] 37.13 kg/m2 Myranda Suppan CONCRETE STONE FINISHER.BIOINFORMATICS COMPUTER SCIENTIST Work Phone: [facility] 03-15-2024 08:33-0400 Body weight 92.08 kg Myranda Suppan CONCRETE STONE FINISHER.BIOINFORMATICS COMPUTER SCIENTIST Work Phone: [facility] 03-15-2024 08:33-0400 Diastolic blood pressure 70 mm[Hg] Myranda Suppan CONCRETE STONE FINISHER.BIOINFORMATICS COMPUTER SCIENTIST Work Phone: [facility] 03-15-2024 08:33-0400 Heart rate 62 /min Myranda Suppan CONCRETE STONE FINISHER.BIOINFORMATICS COMPUTER SCIENTIST Work Phone: [facility] 03-15-2024 08:33-0400 SaO2% (BldA) [Mass fraction] 95 % Myranda Suppan CONCRETE STONE FINISHER.BIOINFORMATICS COMPUTER SCIENTIST Work Phone: [facility] 03-15-2024 08:33-0400 Systolic blood pressure 104 mm[Hg] Myranda Suppan CONCRETE STONE FINISHER.BIOINFORMATICS COMPUTER SCIENTIST Work Phone: [facility] 02-26-2024 08:19-0400 Body mass index (BMI) [Ratio] 37.31 kg/m2 Myranda Suppan CONCRETE STONE FINISHER.SCHOOL AGE TEACHER Work Phone: [facility] 02-26-2024 08:19-0400 Body weight 92.53 kg Myranda Suppan CONCRETE STONE FINISHER.SCHOOL AGE TEACHER Work Phone: [facility] 02-26-2024 08:19-0400 Diastolic blood pressure 72 mm[Hg] Myranda Suppan CONCRETE STONE FINISHER.SCHOOL AGE TEACHER Work Phone: [facility] 02-26-2024 08:19-0400 Heart rate 81 /min Myranda Suppan CONCRETE STONE FINISHER.SCHOOL AGE TEACHER Work Phone: [facility] 02-26-2024 08:19-0400 Respiratory rate 16 /min Myranda Suppan CONCRETE STONE FINISHER.SCHOOL AGE TEACHER Work Phone: [facility] 02-26-2024 08:19-0400 SaO2% (BldA) [Mass fraction] 97 % Myranda Suppan CONCRETE STONE FINISHER.SCHOOL AGE TEACHER Work Phone: [facility] 02-26-2024 08:19-0400 Systolic blood pressure 112 mm[Hg] Myranda Suppan CONCRETE STONE FINISHER.SCHOOL AGE TEACHER Work Phone: [facility] 02-23-2024 09:02-0400 Body mass index (BMI) [Ratio] 37.28 kg/m2 Zheng Luna MD Work Phone: [facility] 02-23-2024 09:02-0400 Body weight 92.44 kg Zheng Luna MD Work Phone: [facility] 02-23-2024 09:02-0400 Diastolic blood pressure 70 mm[Hg] Zheng Luna MD Work Phone: [facility] 02-23-2024 09:02-0400 Systolic blood pressure 108 mm[Hg] Zheng Luna MD Work Phone: [facility] 01-23-2024 08:37-0400 Body height 157.5 cm Zheng Luna MD Work Phone: [facility] 01-23-2024 08:37-0400 Body mass index (BMI) [Ratio] 37.86 kg/m2 Zheng Luna MD Work Phone: [facility] 01-23-2024 08:37-0400 Body weight 93.89 kg Zheng Luna MD Work Phone: [facility] 01-23-2024 08:37-0400 Diastolic blood pressure 80 mm[Hg] Zheng Luna MD Work Phone: [facility] 01-23-2024 08:37-0400 Heart rate 78 /min Zheng Luna MD Work Phone: [facility] 01-23-2024 08:37-0400 Respiratory rate 16 /min Zheng Luna MD Work Phone: [facility] 01-23-2024 08:37-0400 Systolic blood pressure 116 mm[Hg] Zheng Luna MD Work Phone: [facility] 01-12-2024 10:00-0400 Body mass index (BMI) [Ratio] 38.42 kg/m2 Zheng Luna MD Work Phone: [facility] 01-12-2024 10:00-0400 Body weight 94.71 kg Zheng Luna MD Work Phone: [facility] 01-12-2024 10:00-0400 Diastolic blood pressure 80 mm[Hg] Zheng Luna MD Work Phone: [facility] 01-12-2024 10:00-0400 Systolic blood pressure 116 mm[Hg] Zheng Luna MD Work Phone: [facility] 12-16-2023 08:48-0400 Body weight 92.99 kg Samanta Orlinda CONCRETE STONE FINISHER.BIOINFORMATICS COMPUTER SCIENTIST Work Phone: [facility] 12-16-2023 08:48-0400 Diastolic blood pressure 51 mm[Hg] Samanta Olya CONCRETE STONE FINISHER.BIOINFORMATICS COMPUTER SCIENTIST Work Phone: [facility] 12-16-2023 08:48-0400 Systolic blood pressure 78 mm[Hg] Samanta Orlinda CONCRETE STONE FINISHER.BIOINFORMATICS COMPUTER SCIENTIST Work Phone: [facility] 11-16-2023 12:25-0400 Body temperature 97.7 [degF] David Parth CONCRETE STONE FINISHER.BIOINFORMATICS COMPUTER SCIENTIST Work Phone: [facility] 11-16-2023 12:25-0400 Body weight 94.9 kg David Pendleguille CONCRETE STONE FINISHER.BIOINFORMATICS COMPUTER SCIENTIST Work Phone: [facility] 11-16-2023 12:25-0400 Diastolic blood pressure 80 mm[Hg] David Pendlebury CONCRETE STONE FINISHER.BIOINFORMATICS COMPUTER SCIENTIST Work Phone: [facility] 11-16-2023 12:25-0400 Heart rate 82 /min [facility] CONCRETE STONE FINISHER.BIOINFORMATICS COMPUTER SCIENTIST Work Phone: [facility] 11-16-2023 12:25-0400 Respiratory rate 18 /min David Pendlebury CONCRETE STONE FINISHER.BIOINFORMATICS COMPUTER SCIENTIST Work Phone: [facility] 11-16-2023 12:25-0400 SaO2% (BldA) [Mass fraction] 97 % [facility] CONCRETE STONE FINISHER.BIOINFORMATICS COMPUTER SCIENTIST Work Phone: [facility] 11-16-2023 12:25-0400 Systolic blood pressure 122 mm[Hg] [facility] CONCRETE STONE FINISHER.BIOINFORMATICS COMPUTER SCIENTIST Work Phone: [facility] 02-04-2023 17:36-0400 Blood Pressure Location SANDI REICHFIELD DO [facility] 02-04-2023 17:36-0400 Blood Pressure Method SANDI REICHFIELD D O [facility] 02-04-2023 17:36-0400 Diastolic Blood Pressure Non-Invasive 84 1 SANDI REICHFIELD DO [facility] 02-04-2023 17:36-0400 Heart rate 88 /min SANDI REICHFIELD DO [facility] 02-04-2023 17:36-0400 Respiratory rate 18 /min SANDI REICHFIELD DO [facility] 02-04-2023 17:36-0400 Systolic Blood Pressure Non-Invasive 124 1 SANDI REICHFIELD DO [facility] 02-04-2023 14:52-0400 Blood Pressure Location SANDI REICHFIELD DO [facility] 02-04-2023 14:52-0400 Blood Pressure Method SANDI HAMMONDS D O [facility] 02-04-2023 14:52-0400 Body temperature 97.7 [degF] SANDI REICHFIELD DO [facility] 02-04-2023 14:52-0400 Diastolic Blood Pressure Non-Invasive 79 1 SANDI REICHFIELD DO [facility] 02-04-2023 14:52-0400 Heart rate 99 /min SANDI REICHFIELD DO [facility] 02-04-2023 14:52-0400 Respiratory rate 18 /min SANDI REICHFIELD DO [facility] 02-04-2023 14:52-0400 Systolic Blood Pressure Non-Invasive 120 1 SANDI REICHFIELD DO [facility] 02-21-2022 09:16-0400 Body weight 97.07 kg NA Ferrer PA-C Work Phone: [facility] 02-21-2022 09:16-0400 Diastolic blood pressure 72 mm[Hg] NA Ferrer PA-C Work Phone: [facility] 02-21-2022 09:16-0400 Heart rate 75 /min NA Ferrer PA-C Work Phone: [facility] 02-21-2022 09:16-0400 Respiratory rate 16 /min NA Ferrer PA-C Work Phone: [facility] 02-21-2022 09:16-0400 SaO2% (BldA) [Mass fraction] 99 % NA Ferrer PA-C Work Phone: [facility] 02-21-2022 09:16-0400 Systolic blood pressure 116 mm[Hg] NA Ferrer PA-C Work Phone: [facility] 02-07-2022 10:15-0400 Body temperature 98.49 [degF] [facility] CONCRETE STONE FINISHER.BIOINFORMATICS COMPUTER SCIENTIST Work Phone: [facility] 02-07-2022 10:15-0400 Body [facility] CONCRETE STONE FINISHER.BIOINFORMATICS COMPUTER SCIENTIST Work Phone: [facility] 02-07-2022 10:15-0400 Diastolic blood pressure 78 mm[Hg] [facility] CONCRETE STONE FINISHER.BIOINFORMATICS COMPUTER SCIENTIST Work Phone: [facility] 02-07-2022 10:15-0400 Heart rate 76 /min [facility] CONCRETE STONE FINISHER.BIOINFORMATICS COMPUTER SCIENTIST Work Phone: [facility] 02-07-2022 10:15-0400 Respiratory rate 18 /min [facility] CONCRETE STONE FINISHER.BIOINFORMATICS COMPUTER SCIENTIST Work Phone: [facility] 02-07-2022 10:15-0400 SaO2% (BldA) [Mass fraction] 98 % [facility] CONCRETE STONE FINISHER.BIOINFORMATICS COMPUTER SCIENTIST Work Phone: [facility] 02-07-2022 10:15-0400 Systolic blood pressure 112 mm[Hg] [facility] CONCRETE STONE FINISHER.BIOINFORMATICS COMPUTER SCIENTIST Work Phone: [facility] 12-01-2021 10:45-0400 Body temperature 97.39 [degF] Felix Traore MD Work Phone: [facility] 12-01-2021 10:45-0400 Body weight 94.62 kg Felix Traore MD Work Phone: [facility] 12-01-2021 10:45-0400 Diastolic blood pressure 80 mm[Hg] Felix Traore MD Work Phone: [facility] 12-01-2021 10:45-0400 Heart rate 71 /min Felix Traore MD Work Phone: [facility] 12-01-2021 10:45-0400 Respiratory rate 16 /min Felix Traore MD Work Phone: [facility] 12-01-2021 10:45-0400 SaO2% (BldA) [Mass fraction] 98 % Felix Traore MD Work Phone: [facility] 12-01-2021 10:45-0400 Systolic blood pressure 110 mm[Hg] Felix Traore MD Work Phone: [facility] Encounters Encounter Date Encounter Type Care Provider Facility Start: 02-17-2025 End: 02-17-2025 Preprocedural examination done Pst 2 [facility] Work Phone: Start: 02-17-2025 End: 02-17-2025 PAT [facility] 2 Pre Surgical Testing Comment on above: Preop examination (P rimary Dx); Ovarian mass, right; Mixed hyperlipidemia; Tobacco use disorder; Controlled type 2 diabetes mellitus without complication, without long-term current use of insulin (HCC); Migraine without status migrainosus, not intractable, unspecified migraine type Start: 02-15-2025 ambulatory AARON BLOUNT Facilit y:[facility] Start: 02-15-2025 End: 02-15-2025 Subsequent hospital visit by physician [facility] ([facility]-Stat) Work Phone: Cat Scan Comment on above: Intra-abdominal and pelvic swelling, mass and lump, unspecified site [R19.00] Start: 02-11-2025 [facility] other [facility]ced[facility] Start: 02-11-[address] (I-Stat) Work Phone: [facility] Work Phone: Start: 02-10-2025 End: 02-10-2025 Orders Only Aaron Blount MD Work Phone: [facility] Gynecology Oncology Comment on above: Ovarian mass (Primar y Dx) Start: 02-07-2025 End: 02-07-2025 Manual pelvic examination Aaron Blount MD Work Phone: [facility] Gynecology Oncology Comment on above: Intra-abdominal and pelvic swelling, mass and lump, unspecified site (Primary Dx) Start: 02-07-2025 End: 02-07-2025 Telemedicine consultation with patient Aaron Blount MD Work Phone: [facility] Gynecology Oncology Start: 02-07-2025 End: 02-07-2025 ambulatory MYRANDA A SUPPAN Facility:[facility] Start: 02-07-2025 End: 02-07-2025 Emergency department patient visit BHUPENDRA DAVILA DO [facility] Start: 02-04-2025 End: 02-04-2025 ambulatory MYRANDA A SUPPAN Facility:[facility] Start: 02-04-2025 End: 02-04-2025 ambulatory MYRANDA A SUPPAN Facility:[facility] Start: 01-30-2025 End: 01-30-2025 Emergency department patient visit Dr. Jostin Stone DO Work Phone: -Emergency Department Work Phone: Start: 01-18-2025 End: 01-18-2025 Telephone encounter Zheng Luna MD Work Phone: OB/Gynecology Start: 01-18-2025 End: 01-18-2025 ambulatory MYRIAM RIVERA Facility:[facility] Start: 01-17-2025 End: 01-17-2025 Emergency department patient visit Dr. Jostin Stone DO Work Phone: -Emergency Department Work Phone: Start: 01-17-2025 End: 01-17-2025 Office outpatient visit 15 minutes David Alba CONCRETE STONE FINISHER.BIOINFORMATICS COMPUTER SCIENTIST Work Phone: [facility] Comment on above: Acute right-sided lo w back pain without sciatica (Primary Dx); Abdominal pain, unspecified abdominal location Start: 01-17-2025 End: 01-17-2025 ambulatory MYRANDA A SUPPAN Facility:[facility] Start: 12-20-2024 End: 12-20-2024 Office outpatient visit 15 minutes Myranda A Suppan CONCRETE STONE FINISHER.BIOINFORMATICS COMPUTER SCIENTIST Work Phone: [facility] Comment on above: JESSE (generalized anx iety disorder) (Primary Dx); Anxiety with depression; Controlled type 2 diabetes mellitus without complication, without long-term current use of insulin (HCC); Fatty liver; Panic disorder; Hypomagnesemia Start: 12-20-2024 End: 12-20-2024 ambulatory MYRANDA DALLAS Facility:[facility] Start: 11-22-2024 End: 11-23-2024 Follow-up encounter Myranda Dallas CONCRETE STONE FINISHER.BIOINFORMATICS COMPUTER SCIENTIST Work Phone: [facility] Start: 11-20-2024 End: 11-20-2024 Chart abstracting Edvin [facility] Start: 11-18-2024 End: 11-18-2024 ambulatory MYRANDA DALLAS Facility:[facility] Start: 11-18-2024 End: 11-18-2024 Office outpatient visit 15 minutes Myranda Dallas CONCRETE STONE FINISHER.BIOINFORMATICS COMPUTER SCIENTIST Work Phone: [facility] Comment on above: Palpitations (Primar y Dx); Migraine without aura and without status migrainosus, not intractable; Fatty liver; Depressive disorder; Panic disorder; Anxiety with depression; Pure hypercholesterolemia; Goiter, euthyroid; Controlled type 2 diabetes mellitus without complication, without long-term current use of insulin (HCC); Abrasion; Encounter for screening examination for other mental health and behavioral disorders Start: 11-18-2024 End: 11-18-2024 ambulatory Nurse Intm/Famp Triage [facility] Work Phone: Nurse Phone Triage Comment on above: Dizziness; feeling o f her heart rcing and feeling like something is go Start: 06-24-2024 ambulatory JJ AL Facility: [facility] Start: 06-05-2024 End: 06-07-2024 Refill Nay Smart PA-C Work Phone: [facility] Comment on above: Refill Request Start: 05-26-2024 End: 06-02-2024 E-mail encounter from caregiver [facility] Gynecology Start: 05-26-2024 End: 06-02-2024 Patient encounter procedure [facility] Comment on above: Please fax [facility] from outside of the [facility] Start: 04-26-2024 End: 04-26-2024 ambulatory JOSE TSAI Facility:[facility] Start: 04-25-2024 End: 04-25-2024 Telephone encounter Joes Tsai DO Work Phone: Hematology/Oncology Comment on above: Results Start: 04-23-2024 End: 04-23-2024 Telephone encounter Zheng Luna MD Work Phone: OB/Gynecology Comment on above: Orders Start: 04-22-2024 End: 04-22-2024 ambulatory ZHENG LUNA Facility:[facility] Start: 04-22-2024 End: 04-22-2024 Patient encounter procedure Zheng Luna MD Work Phone: OB/Gynecology Comment on above: Post-operative state (Primary Dx); Vaginal discharge; Constipation, unspecified constipation type; Chronic pelvic pain in female; DUB (dysfunctional uterine bleeding) Start: 04-22-2024 End: 04-22-2024 ambulatory JOSE TSAI Facility:[facility] Start: 04-22-2024 End: 04-22-2024 ambulatory Jose Tsai DO Work Phone: Hematology/Oncology Comment on above: Leukocytosis, unspec ified type (Primary Dx); LFT elevation; Lymphocytosis Start: 04-22-2024 End: 04-22-2024 Patient encounter procedure Jose Tsai DO Work Phone: Hematology/Oncology Start: 04-20-2024 End: 04-21-2024 Emergency department patient visit Lloyd Thomas Facility:[facility] Start: 04-19-2024 End: 04-19-2024 ambulatory Zheng Luna MD Work Phone: OB/Gynecology Comment on above: Post Op Start: 04-15-2024 End: 04-15-2024 ambulatory Albert LADD Facility:[facility] Start: 04-14-2024 Telephone encounter Zheng gates MD Work Phone: OB/Gynecology Comment on above: Medication Problem Start: 04-06-2024 Chart abstracting Albert sousa PA-C Work Phone: [facility] Start: 04-06-2024 End: 04-06-2024 ambulatory Albert LADD Facility[facility] Start: 04-02-2024 Telephone encounter Zheng gates MD Work Phone: OB/Gynecology Comment on above: 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 Start: 04-02-2024 End: 04-02-2024 ambulatory ZHENG LUNA Facility:[facility] Start: 04-02-2024 End: 04-02-2024 Patient encounter procedure Zheng Luna MD Work Phone: OB/Gynecology Comment on above: DUB (dysfunctional u terine bleeding) (Primary Dx); Excessive bleeding in premenopausal period; Class 2 obesity with body mass index (BMI) of 36.0 to 36.9 in adult, unspecified obesity type, unspecified whether serious comorbidity present Start: 03-16-2024 Telephone encounter Myranda Dallas CONCRETE STONE FINISHER.BIOINFORMATICS COMPUTER SCIENTIST Work Phone: [facility] Start: 03-15-2024 Encounter for other preprocedural examination JOSE TSAI [facility] Start: 03-15-2024 End: 03-15-2024 ambulatory MYRANDA A SUPPAN Facility:[facility] Start: 03-15-2024 End: 03-15-2024 Office outpatient visit 25 minutes Myranda A Suppan CONCRETE STONE FINISHER.BIOINFORMATICS COMPUTER SCIENTIST Work Phone: [facility] Comment on above: Hypomagnesemia (Prim misty Dx); Abnormal LFTs; Preop examination Start: 03-15-2024 End: 03-15-2024 Preprocedural examination done Myranda A Suppan CONCRETE STONE FINISHER.BIOINFORMATICS COMPUTER SCIENTIST Work Phone: [facility] Start: 03-02-2024 Admission to [facility] OB/Gynecology Comment on above: surgery confirmation Start: 03-02-2024 E-mail encounter zoila m caregiver [facility] Provider OB/Gynecology Start: 02-27-2024 Telephone encounter Myranda Dallas CONCRETE STONE FINISHER.SCHOOL AGE TEACHER Work Phone: [facility] Comment on above: Results Start: 02-26-2024 End: 02-26-2024 ambulatory MYRANDA A SUPPAN Facility:[facility] Start: 02-26-2024 End: 02-26-2024 Office outpatient visit 25 minutes Myranda Dallas CONCRETE STONE FINISHER.SCHOOL AGE TEACHER Work Phone: [facility] Comment on above: Anxiety with depress ion (Primary Dx); Controlled type 2 diabetes mellitus without complication, without long-term current use of insulin (HCC); Dysmenorrhea Start: 02-24-2024 Telephone encounter Albert Ferrer PA-C Work Phone: [facility] Comment on above: Appointment Start: 02-23-2024 End: 02-23-2024 ambulatory ZHENG LUNA Facility:[facility] Start: 02-23-2024 End: 02-23-2024 Patient encounter procedure Zheng Luna MD Work Phone: OB/Gynecology Comment on above: Post-operative state (Primary Dx) Start: 02-11-2024 Documentation procedure Mammog margo Coordinator [facility] Department Start: 02-11-2024 Letter encounter Mammography Coordinator [facility] Department Start: 02-10-2024 End: 02-10-2024 Subsequent hospital visit by physician Screen Mammo [facility] Mammogram Start: 02-05-2024 End: 02-05-2024 ambulatory Albert LADD Facility:[facility] Start: 01-23-2024 End: 01-23-2024 Patient encounter procedure Zheng Luna MD Work Phone: OB/Gynecology Comment on above: Menorrhagia with irr egular cycle (Primary Dx); Endometrial polyp; Visit for pre-operative examination Start: 01-23-2024 End: 01-23-2024 Preprocedural examination done Zheng Luna MD Work Phone: [facility] Start: 01-20-2024 Admission to [facility] Zheng Luna MD Work Phone: OB/Gynecology Comment on above: surgery confirmation Start: 01-20-2024 E-mail encounter fro m caregiver Zheng Luna MD Work Phone: OB/Gynecology Start: 01-15-2024 End: 01-15-2024 ambulatory Samanta Dobson CONCRETE STONE FINISHER.BIOINFORMATICS COMPUTER SCIENTIST Work Phone: OB/Gynecology Comment on above: Irregular bleeding ( Primary Dx) Start: 01-15-2024 End: 01-15-2024 Telemedicine consultation with patient Samanta Dobson CONCRETE STONE FINISHER.BIOINFORMATICS COMPUTER SCIENTIST Work Phone: OB/Gynecology Start: 01-12-2024 End: 01-12-2024 Patient encounter procedure Zheng Luna MD Work Phone: OB/Gynecology Comment on above: Menorrhagia with irr egular cycle (Primary Dx) Start: 01-05-2024 Telephone encounter Samanta marina CONCRETE STONE FINISHER.BIOINFORMATICS COMPUTER SCIENTIST Work Phone: OB/Gynecology Comment on above: Results Start: 12-31-2023 ambulatory Albert Monson on PA-C Work Phone: [facility] [place] Start: 12-31-2023 End: 12-31-2023 Subsequent hospital visit by physician [facility] Work Phone: Radiology Comment on above: Menorrhagia with irr egular cycle [N92.1] Start: 12-16-2023 End: 12-16-2023 Patient encounter procedure Samanta Dobson CONCRETE STONE FINISHER.BIOINFORMATICS COMPUTER SCIENTIST Work Phone: OB/Gynecology Comment on above: Menorrhagia with irr egular cycle (Primary Dx); Dysmenorrhea Start: 12-07-2023 Refill Albert Monson on PA-C Work Phone: [facility] Comment on above: Refill Request Start: 11-16-2023 End: 11-16-2023 Office outpatient visit 15 minutes David Alba CONCRETE STONE FINISHER.BIOINFORMATICS COMPUTER SCIENTIST Work Phone: [facility] Comment on above: Viral illness (Prima ry Dx) Start: 10-30-2023 Refill Ronen Champagne MD Work Phone: [facility] Comment on above: Refill Request Start: 04-02-2023 ambulatory Albert Monson on PA-C Work Phone: [facility] [place] Comment on above: Covid Positive Start: 02-04-2023 End: 02-04-2023 Emergency department patient visit SANDI HAMMONDS DO Facility:[facility] Start: 02-04-2023 End: 02-04-2023 Emergency department patient visit SANDI HAMMONDS DO [facility] Start: 01-26-2023 Refill Albert Monson on PA-C Work Phone: [facility] Comment on above: Refill Request Start: 11-21-2022 Refill Albert Monson on PA-C Work Phone: [facility] Comment on above: Refill Request Start: 09-18-2022 Refill Albert Monson on PA-C Work Phone: [facility] Comment on above: Refill Request Start: 07-22-2022 Refill Albert Monson on PA-C Work Phone: [facility] Comment on above: Refill Request Start: 06-20-2022 Telephone encounter Albert Ferrer PA-C Work Phone: [facility] Comment on above: Forms Start: 03-14-2022 End: 03-14-2022 Patient encounter procedure Mirza Dsouzabrandon Work Phone: Podiatry Comment on above: Open wound of toe, i nitial encounter (Primary Dx) Start: 03-09-2022 Refill Albert Monson on PA-C Work Phone: [facility] Comment on above: Refill Request Start: 02-28-2022 End: 02-28-2022 Patient encounter procedure Mirza Daniel Work Phone: Podiatry Comment on above: Onychodystrophy (Chasity lyssa Dx) Start: 02-22-2022 Telephone encounter Albert Ferrer PA-C Work Phone: [facility] Comment on above: Results Start: 02-21-2022 End: 02-21-2022 Patient encounter procedure Albert Ferrer PA-C Work Phone: [facility] Comment on above: Controlled type 2 di abetes mellitus without complication, without long-term current use of insulin (HCC) (Primary Dx); Depressive disorder; Migraine without aura and without status migrainosus, not intractable; Tobacco use disorder; Mixed hyperlipidemia; Viral URI with cough Start: 02-07-2022 End: 02-07-2022 Patient encounter procedure David Alba APRN.BIOINFORMATICS COMPUTER SCIENTIST Work Phone: [facility] Comment on above: Viral illness (Prima ry Dx) Start: 01-31-2022 Telephone encounter Mirza Casas Work Phone: Podiatry Comment on above: Results Start: 01-29-2022 Refill M Bernabe Monson on PA-C Work Phone: [facility] Comment on above: Refill Request Start: 01-25-2022 End: 01-25-2022 Patient encounter procedure Mirza Daniel Work Phone: Podiatry Comment on above: Onychodystrophy (Chasity lyssa Dx); Diminished pulse; Controlled type 2 diabetes mellitus without complication, without long-term current use of insulin (HCC) Start: 12-05-2021 End: 12-05-2021 Subsequent hospital visit by physician [facility] Work Phone: Radiology Start: 12-03-2021 Telephone encounter Lillie Josue APRN.BIOINFORMATICS COMPUTER SCIENTIST Work Phone: [facility] Comment on above: Results; Orders Start: 12-01-2021 End: 12-01-2021 Subsequent hospital visit by physician Natalie [facility] Work Phone: Radiology Comment on above: Foot pain, left [M79 .672] Start: 12-01-2021 End: 12-01-2021 Patient encounter procedure Feilx Traore MD Work Phone: [facility] Comment on above: Foot pain, left (Chasity lyssa Dx) Start: 08-02-2021 End: 08-02-2021 Subsequent hospital visit by physician Natalie [facility] Work Phone: Radiology Comment on above: Pain of right thumb [M79.644] Procedures Date Procedure Procedure Detail Performing Clinician Start: 02-04-2025 Antibody screen TOVA DALLAS Comment on above: Order Comment: Speci men Type: BLOOD SPECIMEN Ordering Facility: [facility] Address: [address] [place] [id number] Performed By: #### T [id number] #### [facility] CLIA [id number] 1 [place] [address] [place] Start: 01-30-2025 Urnls dip stick/tabl et reagent auto microscopy Dr. Jostin Stone DO Work Phone: Start: 01-30-[address] Bonifacio Stone DO Work Phone: Start: 01-30-[address] Jostin Stone DO Work Phone: Start: 01-17-[address] Jostin Stone DO Work Phone: Start: 01-17-2025 Urnls dip stick/tabl et reagent auto microscopy Dr. Jostin Stone DO Work Phone: Start: 01-17-2025 CT of abdomen and pe lvis without contrast Dr. Jostin Stone DO Work Phone: Start: 01-17-[address] Jostin Stone DO Work Phone: Start: 01-17-2025 Urnls dip stick/tabl et rgnt auto w/o microscopy David Alba CONCRETE STONE FINISHER.BIOINFORMATICS COMPUTER SCIENTIST Work Phone: Start: 11-18-2024 Ecg routine ecg w/le ast 12 lds i&r only Myranda Dallas CONCRETE STONE FINISHER.BIOINFORMATICS COMPUTER SCIENTIST Work Phone: Start: 04-06-2024 Hemoglobin A1c/Hemoglobin.total in Blood [facility] Provider Start: 01-12-2024 UA DIP,URINE HCG (POC) Zheng Luna MD Work Phone: Start: 12-05-2021 End: 12-05-2021 Mammography Ronen Champagne MD Work Phone: Start: 12-01-2021 Radex foot complete minimum 3 views Felix Traore MD Work Phone: Start: 08-02-2021 Radex fingr minimum 2 views Mel Callahan CONCRETE STONE FINISHER.BIOINFORMATICS COMPUTER SCIENTIST Work Phone: Start: 05-08-2021 Mammography Felix smith MD Work Phone: Start: 08-28-2018 Colonoscopy Felix smith MD Work Phone: section SANDI JAMES DO Cholecystectomy SANDI SILVESTRE IELD DO Tonsillectomy and adenoidectomy SANDI HAMMONDS DO Plan of Treatment Date Care Activity Detail Author Start: 02-04-2030 Screening for malign ant neoplasm of cervix Cervical Cancer Screening [facility] Start: 08-28-2028 Colonoscopy COLONOSCOPY [facility] Start: 08-28-2028 COLORECTAL CANCER SCREENING COLORECTAL CANCER SCREENING [facility] Start: 08-28-2028 Screening for malign ant neoplasm of colon [facility] Start: 06-06-2027 Urine microalbumin profile [facility] Start: 04-06-2026 HPV TESTING HPV TESTING [facility] Start: 04-06-2026 PAP TESTING PAP TESTING [facility] Start: 04-06-2026 Screening for malign ant neoplasm of cervix [facility] Start: 12-20-2025 Annual PCP Team Applied Exercise Physiologist darryl Disease Visit Annual PCP Team Chronic Disease Visit [facility] Start: 12-20-2025 Diabetic foot examination Diabetic F oot Exam [facility] Start: 11-18-2025 Annual PCP Team Applied Exercise Physiologist darryl Disease Visit Annual PCP Team Chronic Disease Visit [facility] Start: 11-18-2025 Anxiety Screening Anxiety Screening [facility] Start: 11-18-2025 Hepatitis B surface antibody level LDL Cholesterol [facility] Start: 06-21-2025 End: 06-21-2025 Patient encounter procedure 06/21/2025 8:40 AM EDT Office Visit [facility] [address] [place] [address] Myranda Dallas CONCRETE STONE FINISHER.BIOINFORMATICS COMPUTER SCIENTIST [address] [place] [address] 6 month exam DM, Depression, multiple co-morbities. Provider requests 40 min [facility] Comment on above: 6 month exam DM, Dep ression, multiple co-morbities. Provider requests 40 min Start: 06-11-2025 Glaucoma screening Dilated Retinal E xam [facility] Start: 03-21-2025 End: 06-20-2025 CBC W Auto Differential panel - Blood COMPLETE BLOOD COUNT AND DIFFERENTIAL Lab Routine Controlled type 2 diabetes mellitus without complication, without long-term current use of insulin (HCC) Expected: 03/21/2025, Expires: 06/20/2025 [facility] Comment on above: Expected: 03/21/2025 , Expires: 06/20/2025 Start: 03-21-2025 End: 06-20-2025 Comprehensive metabolic 2000 panel - Serum or Plasma COMPREHENSIVE METABOLIC PANEL Lab Routine Fatty liver Expected: 03/21/2025, Expires: 06/20/2025 [facility] Comment on above: Expected: 03/21/2025 , Expires: 06/20/2025 Start: 03-21-2025 End: 06-20-2025 Gamma glutamyl transferase [Enzymatic activity/volume] in Serum or Plasma GGT Lab Routine Fatty liver Expected: 03/21/2025, Expires: 06/20/2025 [facility] Comment on above: Expected: 03/21/2025 , Expires: 06/20/2025 Start: 03-21-2025 End: 06-20-2025 Hemoglobin A1c in Blood HEMOGLOBIN A1C Lab Routine Controlled type 2 diabetes mellitus without complication, without long-term current use of insulin (HCC) Expected: 03/21/2025, Expires: 06/20/2025 [facility] Work Phone: Comment on above: Expected: 03/21/2025 , Expires: 06/20/2025 Start: 03-21-2025 End: 06-20-2025 Magnesium [Mass/volume] in Serum or Plasma MAGNESIUM Lab Routine Hypomagnesemia Expected: 03/21/2025, Expires: 06/20/2025 [facility] Comment on above: Expected: 03/21/2025 , Expires: 06/20/2025 Start: 03-21-2025 End: 06-20-2025 Microalbumin/Creatinine [Mass Ratio] in Urine ALBUMIN/CREATININE RATIO, URINE Lab Routine Controlled type 2 diabetes mellitus without complication, without long-term current use of insulin (HCC) Expected: 03/21/2025, Expires: 06/20/2025 [facility] Comment on above: Expected: 03/21/2025 , Expires: 06/20/2025 Start: 03-16-2025 End: 03-16-2025 ambulatory 03/16/2025 11:30 AM EDT Visit (SP) Office [facility] [address] [place] [address] Aaron Blount MD [address] [place] [address] Post Op [facility] Comment on above: Post Op Start: 02-25-2025 Hepatitis B screening Urine Al bumin:Creatinine Ratio [facility] Start: 02-25-2025 End: 02-25-2025 Admission to same day surgery center 02/25/2025 11:45 AM EDT - 02/25/2025 5:00 PM EDT Surgery [address] [address] Aaron Blount MD [address] [place] [address] LAPAROSCOPIC HYSTERECTOMY TOTAL FOR UTERUS 250G OR LESS [facility] Comment on above: LAPAROSCOPIC HYSTERE CTOMY TOTAL FOR UTERUS 250G OR LESS Start: 02-25-2025 End: 02-25-2025 Laparoscopy w total hysterectomy uterus 250 gm/< LAPAROSCOPIC HYSTERECTOMY TOTAL FOR UTERUS 250G OR LESS Ovarian mass 02/25/2025 11:45 AM EDT [place] Start: 02-25-2025 End: 02-25-2025 Laparoscopy w/rmvl adnexal structures [place] Start: 02-25-2025 End: 02-25-2025 Pelvic examination w/anesthesia other than local EXAM UNDER ANESTHESIA PELVIC / VAGINAL Ovarian mass 02/25/2025 11:45 AM EDT [place] Start: 02-25-2025 Subsequent hospital visit by physician [facility] Comment on above: Ovarian mass [N83.8] Start: 02-25-2025 End: 02-25-2025 Transfusion blood/blood components TRANSFUSION BLOOD Ovarian mass 02/25/2025 11:45 AM EDT [place] Start: 02-18-2025 Hemoglobin A1c measurement HbA1C [facility] Start: 02-17-2025 End: 02-17-2025 ambulatory 02/17/2025 11:20 AM EDT PAT Pre Surgical Testing [address] [place] [id number] [facility] Pre Surgical Testing Comment on above: [facility] Start: 02-15-2025 End: 02-15-2025 Patient encounter procedure Cat Scan Comment on above: Dx: Intra-abdominal and pelvic swelling, mass and lump, unspecified site [R19.00] Start: 02-09-2025 Screening for malign ant neoplasm of breast Mammogram Screening [facility] Start: 01-30-2025 [facility] Start: 01-18-2025 End: 01-18-2025 Patient encounter procedure 01/18/2025 12:50 PM EDT Office Visit OB/Gynecology [address] [place] [address] Myriam Rivera MD [address] [place] [address] F/U ER-ORADS 5 ovarian cyst/ possible referral to kitchen bath designer onc OB/Gynecology Comment on above: F/U ER-ORADS 5 ovari an cyst/ possible referral to kitchen bath designer onc Start: 01-17-2025 [facility] Start: 12-20-2024 End: 12-20-2024 Patient encounter procedure 12/20/2024 9:00 AM EDT Office Visit Family [facility] [address] [place], [place] [id number] Myranda Dallas APRN.BIOINFORMATICS COMPUTER SCIENTIST [address] [place] [address] 4 week anxiety/depression f/u [facility] Comment on above: 4 week anxiety/depre ssion f/u Start: 11-18-2024 End: 02-17-2025 Cobalamin (Vitamin B12) [Mass/volume] in Serum or Plasma [facility] Comment on above: Expected: 11/18/2024 , Expires: 02/17/2025 Start: 11-18-2024 End: 02-17-2025 Comprehensive metabolic 2000 panel - Serum or Plasma [facility] Comment on above: Expected: 11/18/2024 , Expires: 02/17/2025 Start: 11-18-2024 End: 02-17-2025 Hemoglobin A1c in Blood [facility] Comment on above: Expected: 11/18/2024 , Expires: 02/17/2025 Start: 11-18-2024 End: 02-17-2025 LIPID PANEL, NONFASTING [facility] Work Phone: Comment on above: Expected: 11/18/2024 , Expires: 02/17/2025 Start: 11-18-2024 End: 02-17-2025 Magnesium [Mass/volume] in Serum or Plasma [facility] Comment on above: Expected: 11/18/2024 , Expires: 02/17/2025 Start: 11-18-2024 End: 02-17-2025 Thyrotropin [Units/volume] in Serum or Plasma [facility] Comment on above: Expected: 11/18/2024 , Expires: 02/17/2025 Start: 10-07-2024 Hemoglobin A1c measurement HbA1C [facility] Start: 09-16-2024 End: 09-16-2024 Patient encounter procedure 09/16/2024 8:20 AM EST Office Visit Family [facility] [address] [place] [id number] Myranda Dallas, CONCRETE STONE FINISHER.BIOINFORMATICS COMPUTER SCIENTIST [address] [place] [id number] 6 month follow up [facility] Comment on above: 6 month follow up Start: 09-15-2024 Annual PCP Team Applied Exercise Physiologist darryl Disease Visit Annual PCP Team Chronic Disease Visit [facility] Start: 09-15-2024 Hepatitis B screening Urine Al bumin:Creatinine Ratio [facility] Start: 09-15-2024 Hepatitis B surface antibody level LDL Cholesterol [facility] Start: 08-27-2024 Hemoglobin A1c measurement HbA1C [facility] Start: 05-02-2024 Covid-19 Vaccine ( season) Covid-19 Vaccine ( season) [facility] Start: 05-02-2024 Influenza vaccination C [facility] Start: 04-26-2024 End: 04-26-2024 Patient encounter procedure 04/26/2024 3:40 PM EDT Office Visit OB/Gynecology [address] [place] [id number] Zheng Luna MD [address] [place] [id number] Post Op OB/Gynecology Comment on above: Post Op Start: 04-26-2024 End: 04-26-2024 ambulatory 04/26/2024 8:30 AM EDT Results Only [facility] [address] [place] [id number] lab [facility] Comment on above: lab Start: 04-25-2024 End: 07-25-2024 HFE gene targeted mutation analysis in Blood or Tissue by Molecular genetics method HFE (HEMOCHROMATOSIS) Lab Routine Elevated ferritin Expected: 04/25/2024, Expires: 07/25/2024 [facility] Work Phone: Comment on above: Expected: 04/25/2024 , Expires: 07/25/2024 Start: 04-22-2024 End: 07-22-2024 C reactive protein [Mass/volume] in Serum or Plasma [facility] Comment on above: Expected: 04/22/2024 , Expires: 07/22/2024 Start: 04-22-2024 End: 07-22-2024 Chronic hepatitis differentiation between hepatitis B and C virus panel - Serum or Plasma [facility] Work Phone: Comment on above: Expected: 04/22/2024 , Expires: 07/22/2024 Start: 04-22-2024 End: 07-22-2024 Ferritin [Mass/volume] in Serum or Plasma [facility] Comment on above: Expected: 04/22/2024 , Expires: 07/22/2024 Start: 04-22-2024 End: 07-22-2024 FLOW CYTOMETRY FOR LEUKEMIA/LYMPHOMA (FCLL) [facility] Comment on above: Expected: 04/22/2024 , Expires: 07/22/2024 Start: 04-22-2024 End: 04-22-2024 Patient encounter procedure 04/22/2024 1:10 PM EDT Office Visit OB/Gynecology [address] [place] [address] Zheng Luna MD [address] [place] [address] Post Op OB/Gynecology Comment on above: Post Op Start: 04-22-2024 End: 04-22-2024 ambulatory 04/22/2024 10:10 AM EDT Visit (SP) Office Hematology/Oncology [address] [place] [address] Jose Tsai DO [address] [place] [address] FACILITY ENVIRONMENTAL TECHNICIAN/LEUKOCYTOSIS/REF MYRANDA DALLAS BIOINFORMATICS COMPUTER SCIENTIST* Hematology/Oncology Comment on above: FACILITY ENVIRONMENTAL TECHNICIAN/LEUKOCYTOSIS/REF MYRANDA DALLAS CNP* Start: 04-22-2024 End: 04-22-2024 FQHC visit new patient 04/22/2024 10:10 AM EDT Visit (SP) Office Hematology/Oncology [address] [place] [address] Jose Tsai DO [address] [place] [address] New Patient. DX. Leukocytosis, unspecified type [D72.829] PAtient wanting this day and time Hematology/Oncology Comment on above: New Patient. DX. Shaun kocytosis, unspecified type [D72.829] PAtient wanting this day and time Start: 04-02-2024 End: 04-02-2024 Patient encounter procedure 04/02/2024 9:20 AM EDT Office Visit OB/Gynecology [address] [place] [address] Zheng Luna MD [address] [place] [id number] surgery 04/15 @[facility] OB/Gynecology Comment on above: surgery 04/15 @[facility] Start: 03-15-2024 End: 06-14-2024 CBC W Auto Differential panel - Blood [facility] Comment on above: Expected: 03/15/2024 , Expires: 06/14/2024 Start: 03-15-2024 End: 06-14-2024 Comprehensive metabolic 2000 panel - Serum or Plasma [facility] Comment on above: Expected: 03/15/2024 , Expires: 06/14/2024 Start: 03-15-2024 Hemoglobin A1c measurement HbA1C [facility] Start: 03-15-2024 End: 06-14-2024 Magnesium [Mass/volume] in Serum or Plasma [facility] Work Phone: Comment on above: Expected: 03/15/2024 , Expires: 06/14/2024 Start: 03-15-2024 End: 03-15-2024 Patient encounter procedure [facility] Comment on above: 6 mo follow up 6 mo follow up-needs medical clearance for hysterectomy Start: 03-05-2024 End: 03-05-2024 Patient encounter procedure 03/05/2024 10:50 AM EDT Office Visit OB/Gynecology [address] [place] [id number] Zheng Luna MD [address] [place] [id number] Post Op OB/Gynecology Comment on above: Post Op Start: 02-26-2024 End: 05-27-2024 CBC W Auto Differential panel - Blood [facility] Comment on above: Expected: 02/26/2024 , Expires: 05/27/2024 Start: 02-26-2024 End: 05-27-2024 Comprehensive metabolic 2000 panel - Serum or Plasma [facility] Comment on above: Expected: 02/26/2024 , Expires: 05/27/2024 Start: 02-26-2024 End: 05-27-2024 Hemoglobin A1c in Blood [facility] Work Phone: Comment on above: Expected: 02/26/2024 , Expires: 05/27/2024 Start: 02-26-2024 End: 05-27-2024 Magnesium [Mass/volume] in Serum or Plasma [facility] Comment on above: Expected: 02/26/2024 , Expires: 05/27/2024 Start: 02-26-2024 End: 05-27-2024 Microalbumin/Creatinine [Mass Ratio] in Urine [facility] Comment on above: Expected: 02/26/2024 , Expires: 05/27/2024 Start: 02-26-2024 End: 05-27-2024 Thyrotropin [Units/volume] in Serum or Plasma [facility] Comment on above: Expected: 02/26/2024 , Expires: 05/27/2024 Start: 02-23-2024 End: 02-23-2024 Patient encounter procedure 02/23/2024 9:20 AM EDT Office Visit OB/Gynecology [address] [place] [id number] Zheng Luna MD [address] [place] [id number] Post Op OB/Gynecology Comment on above: Post Op Start: 02-10-2024 End: 02-10-2024 Patient encounter procedure 02/10/2024 1:10 PM EDT Appointment Mammogram [address] [place] [id number] Encounter for screening mammogram for breast cancer [Z12.31] Mammogram Comment on above: Encounter for screen ing mammogram for breast cancer [Z12.31] Start: 01-23-2024 End: 01-23-2024 Patient encounter procedure 01/23/2024 8:40 AM EDT Office Visit OB/Gynecology [address] [place] [id number] Zheng Luna MD [address] [place] [id number] surgery 02/05/2024- patient needed early education teacher appointment OB/Gynecology Comment on above: surgery 02/05/2024- pa tient needed early education teacher appointment Start: 11-16-2023 End: 11-30-2023 COVID & INFLUENZA A/B & RSV NAAT, ROUTINE COVID & INFLUENZA A/B & RSV NAAT, ROUTINE Microbiology Routine Viral illness Expected: 11/16/2023, Expires: 11/30/2023 [facility] Work Phone: Comment on above: Expected: 11/16/2023 , Expires: 11/30/2023 Start: 05-02-2023 Covid-19 Vaccine () Covid-19 Vaccine () [facility] Start: 05-02-2023 [facility] Start: 02-21-2023 ANNUAL PCP TEAM MAJOR LEAGUE BASEBALL PLAYER DARRYL DISEASE VISIT ANNUAL PCP TEAM CHRONIC DISEASE VISIT [facility] Start: 02-21-2023 Hepatitis B screening URINE AL BUMIN:CREATININE RATIO [facility] Start: 02-21-2023 Hepatitis B surface antibody level LDL CHOLESTEROL [facility] Start: 01-25-2023 3 comp foot exam completed DIABETIC FOOT EXAM [facility] Start: 01-25-2023 Diabetic foot examination Diabetic F oot Exam [facility] Start: 12-05-2022 Mammography MAMMOGRAM [facility] Start: 12-05-2022 Screening for malign ant neoplasm of breast Mammogram Screening [facility] Start: 10-20-2022 Glaucoma screening Dilated Retinal E xam [facility] Start: 10-20-2022 Hepatitis C antibody , confirmatory test DILATED RETINAL EXAM [facility] Start: 08-23-2022 ANNUAL PCP TEAM MAJOR LEAGUE BASEBALL PLAYER DARRYL DISEASE VISIT ANNUAL PCP TEAM CHRONIC DISEASE VISIT [facility] Start: 08-23-2022 End: 10-23-2022 CBC panel - Blood by Automated count CBC Lab Routine Controlled type 2 diabetes mellitus without complication, without long-term current use of insulin (HCC) Depressive disorder Expected: 08/23/2022, Expires: 10/23/2022 [facility] Work Phone: Comment on above: Expected: 08/23/2022 , Expires: 10/23/2022 Start: 08-23-2022 End: 10-23-2022 Comprehensive metabolic 2000 panel - Serum or Plasma COMP METABOLIC PANEL Lab Routine Controlled type 2 diabetes mellitus without complication, without long-term current use of insulin (HCC) Depressive disorder Mixed hyperlipidemia Expected: 08/23/2022, Expires: 10/23/2022 [facility] Work Phone: Comment on above: Expected: 08/23/2022 , Expires: 10/23/2022 Start: 08-23-2022 End: 10-23-2022 Hemoglobin A1c in Blood HGB A1C Lab Routine Controlled type 2 diabetes mellitus without complication, without long-term current use of insulin (HCC) Expected: 08/23/2022, Expires: 10/23/2022 [facility] Work Phone: Comment on above: Expected: 08/23/2022 , Expires: 10/23/2022 Start: 08-23-2022 Hemoglobin A1c/Hemoglobin.total in Blood HBA1C [facility] Start: 08-23-2022 HEPATITIS C SCREENING HEPATITIS C [facility] Comment on above: Postponed from 01/04 (Declined at this time) Start: 08-23-2022 HIV SCREENING HIV SCREENING [facility] Comment on above: Postponed from 01/04 (Declined at this time) Start: 08-23-2022 End: 10-23-2022 Lipid 1996 panel - Serum or Plasma LIPID PANEL BASIC Lab Routine Mixed hyperlipidemia Expected: 08/23/2022, Expires: 10/23/2022 [facility] Work Phone: Comment on above: Expected: 08/23/2022 , Expires: 10/23/2022 Start: 08-17-2022 Hepatitis B surface antibody level LDL CHOLESTEROL [facility] Start: 05-25-2022 End: 07-25-2022 Comprehensive metabolic 2000 panel - Serum or Plasma COMP METABOLIC PANEL Lab Routine Controlled type 2 diabetes mellitus without complication, without long-term current use of insulin (HCC) Elevated liver enzymes Expected: 05/25/2022, Expires: 07/25/2022 [facility] Work Phone: Comment on above: Expected: 05/25/2022 , Expires: 07/25/2022 Start: 05-25-2022 End: 07-25-2022 Hemoglobin A1c in Blood HGB A1C Lab Routine Controlled type 2 diabetes mellitus without complication, without long-term current use of insulin (HCC) Expected: 05/25/2022, Expires: 07/25/2022 [facility] Work Phone: Comment on above: Expected: 05/25/2022 , Expires: 07/25/2022 Start: 05-08-2022 Mammography MAMMOGRAM [facility] Start: 05-02-2022 Influenza vaccination [facility] Start: 05-01-2022 COVID-19 VACCINE (5 - Booster for Moderna series) COVID-19 VACCINE (5 - Booster for Moderna series) [facility] Start: 05-01-2022 COVID-19 VACCINE (5 - Moderna series) COVID-19 VACCINE (5 - Moderna series) [facility] Start: 02-15-2022 Hemoglobin A1c/Hemoglobin.total in Blood HBA1C [facility] Start: 11-07-2020 Hepatitis B screening URINE AL BUMIN:CREATININE RATIO [facility] Start: 11-03-2020 3 comp foot exam completed DIABETIC FOOT EXAM [facility] Start: 06-05-2010 PNEUMOCOCCAL (2 - PCV) PNEUMOCOCCAL (2 - PCV) [facility] Start: 06-05-2010 Pneumococcal vaccination Pneum ococcal Vaccine (2 of 2 - PCV) [facility] Start: 01-05-2000 HEPATITIS B (1 of 3 - Risk 3-dose series) HEPATITIS B (1 of 3 - Risk 3-dose series) [facility] Start: 01-05-2000 Hepatitis B Vaccine (1 of 3 - 19+ 3-dose series) Hepatitis B Vaccine (1 of 3 - 19+ 3-dose series) [facility] Start: 1999 Anxiety Screening Anxiety Screening [facility] Start: 1999 HEPATITIS C SCREENING HEPATITIS C [facility] Start: 1999 Hepatitis C screening Hepatitis C [facility] Start: 1999 HIV SCREENING HIV SCREENING [facility] Start: 1999 HIV screening HIV Screening [facility] Start: 1981 HEPATITIS B (1 of 3 - 3-dose series) HEPATITIS B (1 of 3 - 3-dose series) [facility] Start: 1981 Hepatitis B Vaccine (1 of 3 - 3-dose series) Hepatitis B Vaccine (1 of 3 - 3-dose series) [facility] BACTERIAL VAGINOSIS NAAT BACTERI AL VAGINOSIS NAAT Lab Routine Vaginal discharge 04/22/2024 1:40 PM EDT [facility] Work Phone: WILLY/TRICHOMONAS NAAT WILLY /TRICHOMONAS NAAT Lab Routine Vaginal discharge 04/22/2024 1:40 PM EDT [facility] CBC W Auto Different ial panel - Blood COMPLETE BLOOD COUNT AND DIFFERENTIAL Lab Routine Migraine without aura and without status migrainosus, not intractable Palpitations Panic disorder Anxiety with depression 11/18/2024 10:34 AM EDT [facility] End: 03-09-2026 CT Abdomen and Pelvis W contrast IV CT ABD/PEL W IVCON Radiology Routine Intra-abdominal and pelvic swelling, mass and lump, unspecified site 1 Occurrences starting 02/07/2025 until 03/09/2026 [facility] Work Phone: Comment on above: 1 Occurrences starti ng 02/07/2025 until 03/09/2026 CT Abdomen and Pelvi s W contrast IV CT ABD/PEL W IVCON Radiology Routine Intra-abdominal and pelvic swelling, mass and lump, unspecified site 02/15/2025 11:12 AM EDT [facility] Work Phone: End: 03-09-2026 CT Chest W contrast IV CT CHEST W IVCON Radiology Routine Intra-abdominal and pelvic swelling, mass and lump, unspecified site 1 Occurrences starting 02/07/2025 until 03/09/2026 [facility] Comment on above: 1 Occurrences starti ng 02/07/2025 until 03/09/2026 CT Chest W contrast IV CT CHEST W IVCON Radiology Routine Intra-abdominal and pelvic swelling, mass and lump, unspecified site 02/15/2025 11:12 AM T [facility] End: 01-29-2025 DBT Breast - bilateral screening KEVAN SCREENING W ALVARO Radiology Routine 1 Occurrences starting 12/31/2023 until 01/29/2025 [facility] Work Phone: Comment on above: 1 Occurrences starti ng 12/31/2023 until 01/29/2025 DBT Breast - bilater al screening KEVAN SCREENING W ALVARO Radiology Routine 02/10/2024 1:38 PM EDT [facility] Work Phone: ECG COMPLETE ECG COMPLETE ECG Routine Palpitations 11/18/2024 9:56 AM EDT [facility] Endometrial bx w/wo endocervix bx w/o dilat spx ENDOMETRIAL BIOPSY Procedures Routine Menorrhagia with irregular cycle Ordered: 01/12/2024 [facility] Work Phone: Comment on above: Ordered: 01/12/2024 Endometrial bx w/wo endocervix bx w/o dilat spx ENDOMETRIAL BIOPSY Procedures Routine Menorrhagia with irregular cycle Ordered: 01/08/2024 [facility] Work Phone: Comment on above: Ordered: 01/08/2024 Influenza virus A an d B RNA and SARS-CoV-2 (COVID-19) N gene panel - Respiratory specimen by MALIK with probe detection COVID WITH FLUA+B, ROUTINE Microbiology Routine Viral illness 02/07/2022 10:28 AM EDT [facility] Work Phone: Laparoscopy w total hysterectomy uterus 250 gm/< LAPAROSCOPIC HYSTERECTOMY TOTAL FOR UTERUS 250G OR LESS Ovarian mass AK OR Laparoscopy w/rmvl adnexal structures AK OR Patient Education [facility] Work Phone: Patient referral [facility] Work Phone: Pelvic examination w/anesthesia other than local EXAM UNDER ANESTHESIA PELVIC / VAGINAL Ovarian mass AK OR End: 01-25-2023 PVR ANK PRESS [facility] PVR ANK PRESS [facility] Vascular Lab Routine Onychodystrophy Diminished pulse Controlled type 2 diabetes mellitus without complication, without long-term current use of insulin (HCC) 1 Occurrences starting 01/25/2022 until 01/25/2023 [facility] Work Phone: Comment on above: 1 Occurrences starti ng 01/25/2022 until 01/25/2023 SURGICAL PATHOLOGY SURGICAL PATH OLOGY Lab Routine Menorrhagia with irregular cycle 01/12/2024 10:26 AM EDT [facility] Transfusion blood/bl ood components TRANSFUSION BLOOD Ovarian mass AK OR Unlisted laparoscopi c px abd pertoneum & omentum LAPAROSCOPY REMOVAL FOREIGN BODY IN OMENTUM/ABDOMEN Ovarian mass AK OR Urine test visual color cmprsn meths HCG QUAL UR B/O Lab Routine Menorrhagia with irregular cycle Ordered: 01/12/2024 [facility] Comment on above: Ordered: 01/12/2024 End: 01-14-2025 US Pelvis transvaginal US FEMALE PELVIS TRANSVAG Radiology Routine Menorrhagia with irregular cycle 1 Occurrences starting 12/16/2023 until 01/14/2025 [facility] Work Phone: Comment on above: 1 Occurrences starti ng 12/16/2023 until 01/14/2025 US Pelvis transvaginal US FEMALE PELVIS TRANSVAG Radiology Routine Menorrhagia with irregular cycle 12/31/2023 9:06 AM EDT [facility] Work Phone: XR FOOT GENERAL 3V AP/LAT/OBL LEFT XR FOOT GENERAL 3V AP/LAT/OBL LEFT Radiology Routine Foot pain, left 12/01/2021 11:39 AM EDT [facility] Work Phone: [facility] Immunizations Immunization Date Immunization Notes Care Provider [facility] 06-22-2020 influenza virus vacc ine, unspecified formulation Felix Traore MD Work Phone: [facility] 06-16-2019 influenza virus vacc ine, unspecified formulation Felix Traore MD Work Phone: [facility] 06-18-2018 influenza virus vacc ine, unspecified formulation Felix Traore MD Work Phone: [facility] 06-01-2018 influenza, injectabl e, quadrivalent, preservative free Dr. Jostin Stone DO Work Phone: [facility] 06-01-2018 influenza, seasonal, injectable, preservative free Felix Traore MD Work Phone: [facility] 06-06-2017 influenza, injectabl e, quadrivalent, contains preservative Felix Traore MD Work Phone: [facility] 06-06-2017 tetanus toxoid, redu geneva diphtheria toxoid, and acellular pertussis vaccine, adsorbed Felix Traore MD Work Phone: [facility] 06-05-2016 influenza, injectabl e, quadrivalent, contains preservative Felix Traore MD Work Phone: [facility] 06-01-2015 influenza, seasonal, injectable Felix Traore MD Work Phone: [facility] 06-07-2011 influenza virus vacc ine, unspecified formulation Felix Traore MD Work Phone: [facility] 06-25-2010 influenza virus vacc ine, unspecified formulation Felix Traore MD Work Phone: [facility] 06-05-2009 influenza virus vacc ine, unspecified formulation Felix Traore MD Work Phone: [facility] Work Phone: 06-05-2009 pneumococcal polysaccharide vaccine, 23 valent Felix Traore MD Work Phone: [facility] Work Phone: 07-02-2004 tetanus and diphther ia toxoids, adsorbed, preservative free, for adult use (2 Lf of tetanus toxoid and 2 Lf of diphtheria toxoid) Felix Traore MD Work Phone: [facility] Work Phone: Payers Date Payer Category Payer Unknown MMO MMO [employer] PPO [id number] 2023-Present [phone] [address] [place] [address] PPO [id number] 2023 Unknown [id number] 2023 Self-pay 2020 Private Health Insurance [employer] PPO [id number] 2020-Present [phone] [address] [place] [address] PPO [id number] 2020 Private Health Insurance [id number] 1981 Unknown [id number] 1981 Unknown [id number] 1981 Unknown [id number] Unknown [id number] Unknown [id number] Unknown [id number] Unknown [id number] Unknown [id number] Unknown [id number] Social History Date Type Detail Facility Start: 11-04-2019 End: 04-22-2024 Tobacco smoking status NHIS Ex-smoker [facility] Work Phone: Start: 09-10-2010 End: 09-10-2013 History of tobacco use Current smoker [facility] Work Phone: Start: 09-10-2010 End: 09-10-2013 History of tobacco use Cigarette Smoker [facility] Work Phone: Start: 11-04-2019 End: 09-15-2023 Cigarettes smoked current (pack per day) - Reported 0.3 [facility] Start: 11-04-2019 End: 04-22-2024 Tobacco use and exposure Smokeless tobacco non-user [facility] Work Phone: Start: 12-01-2021 End: 02-17-2025 Alcohol intake Current non-drinker of alcohol (finding) [facility] Start: 06-23-2020 End: 02-21-2022 History SDOH Alcohol Frequency 1 [facility] Start: 06-23-2020 End: 02-21-2022 History SDOH Alcohol Std Drinks 98 [facility] Start: 06-23-2020 End: 02-21-2022 History SDOH Social Connections Phone 3 [facility] Start: 06-23-2020 End: 02-21-2022 History SDOH Social Connections Get Together 2 [facility] Start: 06-23-2020 End: 02-21-2022 History SDOH Financial 4 [facility] Start: 06-23-2020 Education 17 [facility] Start: 11-17-2013 End: 09-15-2023 Tobacco Comment uses E cigs [facility] Start: 1980 Sex Assigned At Female C [facility] Start: 07-03-2021 End: 03-14-2022 Exposure to SARS-CoV-2 (event) Not sure [facility] Start: 02-21-2022 History SDOH Social Connections Phone 5 [facility] Tobacco Nicotine Use: Va ping Product in Last 90 Days. Type: Electronic Cigarettes (Vaping). [facility] Start: 01-17-2025 End: 01-30-2025 Tobacco smoking status Smokes tobacco daily (finding) [facility] Sex Assigned At [facility] Start: 03-14-2022 End: 09-15-2023 Tobacco use panel [facility] Start: 06-23-2020 Gender identity Identifies as female gender (finding) [facility] Has the [employer], [employer], [employer], or [employer] company threatened to shut off services in your home in past 12Mo No [facility] How often do you att end anglican or judaism services? Patient declined [facility] Are you now , , , , never or living with a partner? [facility] How often to you hav e a drink containing alcohol? Never [facility] How hard is it for y ou to pay for the very basics like food, housing, medical care, and heating Somewhat hard [facility] Do you feel stress - tense, restless, nervous, or anxious, or unable to sleep at night because your mind is troubled all the time - these days [OSQ] Very much [facility] (I/We) worried wheth er (my/our) food would run out before (I/we) got money to buy more. Often true [facility] The food that (I/we) bought just didn't last, and (I/we) didn't have money to get more. Never true [facility] How hard is it for y ou to pay for the very basics like food, housing, medical care, and heating Not very hard [facility] Do you feel stress - tense, restless, nervous, or anxious, or unable to sleep at night because your mind is troubled all the time - these days [OSQ] To some extent [facility] (I/We) worried wheth er (my/our) food would run out before (I/we) got money to buy more. Sometimes true [facility] Start: 05-31-2021 Alcohol Alcohol [facility] Start: 11-15-2018 Lives Lives [facility] Start: 11-16-2018 Tobacco Use Tobacco Use [facility] Start: 10-05-2015 Sex Female (finding) [facility] Medical Equipment Procedure Code Equipment Code Equipment Original Text Equipment Identifier Dates [id number], [id number] Start: 03-07-2017 End: 02-21-2022 Comment on above: Test blood sugar(s) 1 times daily. Dx: Type 2 DM - Controlled E11.9 Insulin: No Test blood sugar(s) 1 times daily. Dx: E11.9. Insulin: No Functional Status Date Assessment Result Facility 02-04-[address] [facility] 02-04-2023 Functional Status ID band on, Allergy Band on, Call device within reach, Bed in low position, Wheels locked, Upper/Half-Length side-rails up [facility] 01-31-2015 Are you deaf, or do you have serious difficulty hearing No 01/31/2015 4:18 PM EDT Mary Vinson LPN No [facility] 01-31-2015 Are you blind, or do you have serious difficulty seeing, even when wearing glasses No 01/31/2015 4:18 PM EDT Mary Vinson LPN No [facility] 01-31-2015 Do you have serious difficulty walking or climbing stairs No 01/31/2015 4:18 PM EDT Mary Vinson LPN No [facility] 01-31-2015 Do you have difficul ty dressing or bathing No 01/31/2015 4:18 PM EDT Mary Vinson LPN No [facility] 01-31-2015 Because of a physica l, mental, or emotional condition, do you have difficulty doing errands alone such as visiting a physician's office or shopping No 01/31/2015 4:18 PM EDT Mary Vinson LPN No [facility] Mental Status Date Assessment Result Facility 02-04-2023 Mental Status Orientation Oriented x 4 [facility] 02-04-2023 Mental Status [facility] 01-31-2015 Because of a physica l, mental, or emotional condition, do you have serious difficulty concentrating, remembering, or making decisions No 01/31/2015 4:18 PM EDT Mary Vinson LPN No [facility] Clinical Notes 11-29-2018 to 02-17-2025 Janel Garcia APRN.BIOINFORMATICS COMPUTER SCIENTIST - 02/17/2025 11:20 AM Janel Landis APRN.CNP - 02/17/2025 11:20 AM Hazel Lubin RT(Rafa) - 02/15/2025 10:40 AM EDTPatient InstructionsPatient Instructions Note Date & Type Note Facility 02-17-2025 History and physical note Images from the original note were not included. [facility] HISTORY AND PHYSICAL EXAMINATION SERVICE DATE: 02/17/2025 SERVICE TIME: 11:54 AM PRIMARY CARE PHYSICIAN: Myranda Dallas APRN.BIOINFORMATICS COMPUTER SCIENTIST Assessment Patient has the following medical conditions which may affect lupis-operative course: Preop examination Patient has the following medical conditions which may affect lupis-operative course addressed in assessment and plan today. Ovarian mass, right Surgery scheduled for 02/25/2025 Hyperlipidemia Controlled with statin continue preoperatively Tobacco use disorder 11.4-pack-year history Currently vaping Encouraged to cut back prior to surgery and avoid morning of surgery Diabetes mellitus type 2, controlled, without complications (HCC) A1c 8.October Jardiance stopped 3 days prior Metformin hold morning of surgery Migraines Propranolol take morning of surgery ANESTHESIA FINDINGS: Intubation History: No history of difficult intubation Significant Anesthesia Considerations: none Airway History: No history of difficult airway Brown Activity Status Index: METS: Climb a flight of stairs or walk up a hill (5.50 METs) DASI Score: 5.5 Patient denies any chest pain or undue shortness of breath with the above physical activity. STOP-Bang Score: STOP-Bang Score: 0 [id number] Score: Diabetes history: Yes [id number] Score: ARISCAT Score: Age: <=50 Preoperative SpO2: >=96% Preoperative anemia: No Surgical incision: upper abdominal Duration of surgery: >3 hrs Emergency procedure: No ARISCAT Score: I - PHYSICAL EVALUATION AIRWAY Patient intubated: No. DENTAL Dental findings: missing tooth/teeth and teeth intact. II - ANESTHESIA PLAN Anesthetic Plan: general Beta Susan Monitoring Plan Post Procedure Analgesic Plan Prepared for Surgery: . Per patient-no optimizations requested by surgeon for plan procedure. CONSULTS: Planned Anesthetic: general The Following Tests/Procedures Have Been Initiated: No orders of the defined types were placed in this encounter. The reason for this visit is to perform a comprehensive review of the patient's past medical history, assess their current health status and obtain any additional testing required based on anesthesia guidelines. We will also identify any potential anesthesia problems or contraindications to the planned procedure. REASON FOR VISIT: Ana Hernandez is a 45 year old female who is scheduled for Procedure(s): LAPAROSCOPIC HYSTERECTOMY TOTAL FOR UTERUS 250G OR LESS (N/A) EXAM UNDER ANESTHESIA PELVIC / VAGINAL (N/A) LAPAROSCOPIC SALPINGECTOMY (Bilateral) LAPAROSCOPIC OOPHORECTOMY (Left) TRANSFUSION BLOOD (N/A) at the request of Dr. Aaron Blount for routine H&P. My final recommendation will be communicated back to the requesting physician by way of shared medical record or letter. Subjective The patient has the following: COVID-19 Immunization Status Current Care Gaps Covid-19 Vaccine ( season) Overdue since 05/02/2024 05/29/2022 Imm Admin: COVID-19 vaccine, age 12+ yr, bivalent (MODERNA) 03/06/2022 Imm Admin: COVID-19 original vaccine, full dose, monovalent (MODERNA) 07/12/2021 Imm Admin: COVID-19 original vaccine, full dose, monovalent (MODERNA) Only the first 3 history entries have been loaded, but more history exists. CHIEF COMPLAINT: The reason for this visit is to perform a comprehensive review of the patient's past medical history, assess their current health status and obtain any additional testing required based on anesthesia guidelines. We will also identify any potential anesthesia problems or contraindications to the planned procedure. HPI: Patient is a 45 year old female who presents for pre surgical testing. Patient states she has had irregular periods for several years with her last being in November 2024. She went to the emergency room recently due to severe abdominal pain had an ultrasound showing a 7.9 cm mass. She states she has pain rated 0-10 intermittently and it often wakes her at night. She describes the pain as sharp. She uses ibuprofen and Tylenol with an occasional [place] for relief. She was referred to oncology and after discussion with the surgeon agrees to surgical intervention. REVIEW OF SYSTEMS: General: Negative for: unintentional weight change, malaise and fever. Neurological: Positive for: headaches. Negative for: seizures and strokes. Respiratory: Positive for: asthma and tobacco use. Negative for: COPD, pneumonia within 6 weeks, URI < 2 weeks and obstructive sleep apnea. Cardiovascular: Positive for: hyperlipidemia Negative for: atrial fibrillation, CAD, chest pain, CHF and DVT/PE. GI: Negative for: abdominal pain, GERD, nausea and vomiting. : Negative for: dysuria, hematuria and renal failure. BUSINESS APPLICATIONS ANALYST: See HPI. Endocrine: Positive for: diabetes mellitus. Patient's diabetes mellitus is controlled by oral agents. Negative for: hyperthyroidism and hypothyroidism. Hematology: Negative for: anemia, factor V Leiden and von Willebrand disease. Oncology: No history of CA metastasis, chemo within 30 days, or radiotherapy within 90 days. No history of oncological symptoms or problems. Psych: Positive for: depression. Negative for: anxiety. Musculoskeletal: Negative for: back pain and joint pain. Skin: Negative for lesions, rash and itching. PAST MEDICAL HISTORY Diagnosis Date ABN GLUCOSE-ANTEPARTUM 05/23/2006 Calculus of ureter 05/23/2006 Callus of foot COMMON MIGRAINE W/O MENTN INTRACT 05/23/2006 DEPRESSIVE DISORDER NEC 08/20/200606/09 -Stable, no meds Fatty liver 06/05/2009 CT Scan 01/06, showed diffuse fatty liver. LFTs elevated in past, but 06/09 - normal GOITER NOS 09/28/2006 TSH normal Lumbago 05/23/2006 Mild intermittent asthma without complication (HCC) 05/23/2006 Since age 11. No medication. Last attack > 10 years OBESITY NOS 05/23/2006 Peripheral autonomic neuropathy due to diabetes mellitus (HCC) PMH - PAST MEDICAL HISTORY OF kidney stones Polycystic ovaries 05/23/2006 Snoring Sprain of lumbar region 08/04/2014 Tobacco use disorder 06/05/2009 Type II or unspecified type diabetes mellitus without mention of complication, not stated as uncontrolled 06/05/2009 PAST SURGICAL HISTORY Procedure Laterality Date DELIVERY ONLY , low cervical COLONOSCOPY 08/28/2018 hemorrhoid banding L'SCOPE DX W/WO BRUSHINGS/WASHINGS 04/15/2024 LAPAROSCOPY SURG CHOLECYSTECTOMY Cholecystectomy, lap MYRINGOTOMY ASPIR&/EUSTACHIAN TUBE NFLTJ ANES Myringotomy/tubes PAST SURGICAL HISTORY OF stents in ureter for kidney stones PAST SURGICAL HISTORY OF 08/04/2014 lumbar pain injections. TONSILLECTOMY PRIMARY/SECONDARY Tonsillectomy FAMILY HISTORY Problem Relation Age of Onset Diabetes Mother Diabetes Father Colon Cancer Father 61 Diabetes Maternal Grandmother other (Parkinson's) Maternal Grandmother Stroke Maternal Grandfather Diabetes Maternal Grandfather Colon Cancer Paternal Grandfather Social History Tobacco Use Smoking status: Former Current packs/day: 0.00 Average packs/day: 0.3 packs/day for 3.0 years (0.9 ttl pk-yrs) Types: Cigarettes Start date: 09/10/2010 Quit date: 09/10/2013 Years since quittin.4 Smokeless tobacco: Never Tobacco comments: uses E cigs Vaping Use Vaping status: current everyday user Substances: Nicotine, Flavoring Devices: 1SDK Substance Use Topics Alcohol use: No Drug use: No Prior to Admission medications as of 02/04/25 1047 Medication Sig Last Dose Taking HYDROcodone-acetaminophen (NORCO) 5-325 mg per tablet take 1 tablet by mouth three times a day if needed for BREAKTHROUGH PAIN Yes docusate sodium (COLACE) 100 mg capsule Take 1 capsule by mouth two times a day. Yes Senna 8.6 mg tab Take 1 tablet by mouth two times a day as needed for constipation. Yes hydrOXYzine HCl (ATARAX) 10 mg tablet Take 10 mg by mouth three times a day as needed for anxiety. Yes empagliflozin (JARDIANCE) 25 mg tablet Take 1 tablet by mouth daily with breakfast. Yes magnesium oxide (MAG-OX) 400 mg (241.3 mg magnesium) tablet Take 1 tablet by mouth three times a day. Yes simvastatin (ZOCOR) 40 mg tablet Take 1 tablet by mouth daily at bedtime. Yes busPIRone HCl 30 mg tablet Take 1 tablet by mouth two times a day. Yes venlafaxine ER (EFFEXOR XR) 75 mg 24 hr capsule Take 1 capsule by mouth once daily. Yes amitriptyline (ELAVIL) 100 mg tablet Take 1 tablet by mouth daily at bedtime. Yes propranolol (INDERAL) 40 mg tablet Take 1 tablet by mouth two times a day. Yes topiramate (TOPAMAX) 50 mg tablet Take 1 tablet by mouth two times a day. Yes polyethylene glycol 3350 17 gram/dose powder Take 17 g by mouth once daily. Yes metFORMIN (GLUCOPHAGE) 1,000 mg tablet Take 1 tablet by mouth two times a day with meals. Yes ZINC ORAL Take 50 mg by mouth once daily. Yes cholecalciferol, vitamin D3, (VITAMIN D3 ORAL) Take 1 tablet by mouth once daily. Yes albuterol HFA (PROAIR HFA) 90 mcg/actuation inhaler Inhale 2 Puffs as instructed every 4 hours as needed. Yes omega-3 fatty acids (FISH OIL CONCENTRATE) 1,000 mg cap Take 1,000 mg by mouth once daily. Yes multivit-minerals/ferrous fum (MULTI VITAMIN ORAL) Take 1 tablet by mouth once daily. Yes TIZANIDINE HCL (ZANAFLEX ORAL) Take by mouth two times a day as needed. Yes iv contrast (will be provided with radiology test) CT Chest ABD/PEL-Inject, intravenously, once for 1 dose.No IV access, insert saline lock prior to the beginning of sedation, infusion, injection of imaging exam. Discontinue saline lock post exam. If Pt. has a central line or IVAD, may access for administration according to line specific nursing protocol. Once exam is complete flush line and de-access according to line specific nursing protocol in the CT contrast administration guidelines link. enteric contrast (will be provided with radiology test) For CT CHESTABD/PEL W IVCON Routine order Administer, As Directed One Time Only, via Oral, Rectal, both Oral and Rectal, Enteric Tube, Stoma or Indwelling Catheter, Enteric Contrast as designated per enteric contrast guidelines naloxone 4 mg/actuation nasal spray (NARCAN) Use 1 spray in one nostril as needed for overdose. May repeat every 2 to 3 min in alternating nostrils until medical assistance is available blood-glucose meter,mobile dev (iPeen BLOOD GLUCOSE MONITOR) lyn No medication comments found. ALLERGIES Allergen Reactions Avelox [Moxifloxaci* Rash Doxy [Doxycycline] GI Upset Morphine Rash, Hives, Itching Penicillins Other: See Comments Mother does not recall what the reaction was and was told that she cannot take it Prozac [Fluoxetine * Other: See Comments Mother had side effects from this Objective PHYSICAL EXAM: General: alert and oriented and healthy appearance. Pertinent negatives noted - not distressed. Skin: normal color, no rash or lesions. HEENT: pupils equal round. Cardiovascular: regular rate and rhythm, normal S1 and S2, no rub, murmurs, or gallop. Respiratory: normal breath sounds, no wheezes or crackles. No chest wall deformity or tenderness. Abdomen: bowel sounds present. Extremities: no deformity, no edema or tenderness, no joint swelling or clubbing. Neurological: normal cognition and motor skills. Gait normal. No weakness or sensory deficit. PAIN ASSESSMENT: Pain Pain Level: 5 Pain Location: Abdomen-Mid Lower VITALS: BP 122/83 Pulse 64 Temp 97.9 Resp 14 Ht 5' 2 (1.58m) Wt 192 lb (87.1kg) SpO2 97% LMP 12/08/2023 BMI 35.11 kg/(m^2). Diagnostic tests reviewed for today's visit: Lab Value Units Date High Low HB 13.3 g/dL 02/04/2025 15.5 11.5 HCT 41.2 % 02/04/2025 46.0 36.0 WBC 11.16 k/uL 02/04/2025 11.00 3.70 PLT 276 k/uL 02/04/2025 400 150 NA 141 mmol/L 02/04/2025 144 136 K 3.7 mmol/L 02/04/2025 5.1 3.7 GLUC 133 mg/dL 02/04/2025 99 74 BUN 16 mg/dL 02/04/2025 21 7 CREAT 0.90 mg/dL 02/04/2025 0.96 0.58 PTSEC No results within date range. INR No results within date range. APTT No results within date range. ALT 59 U/L 11/18/2024 38 7 AST 43 U/L 11/18/2024 35 13 TBILI 0.4 mg/dL 11/18/2024 1.3 0.2 TSH 1.710 mIU/L 11/18/2024 4.200 0.270 Lab Value Units Date High Low HCGQT No results within date range. UHCG No results within date range. HCG, BODY* No results within date range. Lab Value Units Date High Low ABORHD No results within date range. ABSCREEN No results within date range. Hemoglobin A1C Date Value 11/18/2024 8.0 % 04/06/2024 6.9 02/26/2024 7.5 % 09/15/2023 7.5 % 02/21/2022 7.0 % 08/17/2021 6.3 % 02/04/2020 6.5 % 11/08/2019 6.4 % 01/23/2019 6.0 % 08/17/2018 5.9 % Recent Results (from the past 8760 hours) ECG COMPLETE Collection Time: 11/18/24 9:56 AM Result Value Ventricular Rate 88 Atrial Rate 88 P-R Interval 168 QRS Duration 76 QT Interval 368 QTC Calculation (Bazett) 445 Calculated P [place] 40 Calculated R [place] 7 Calculated T [place] 46 Impression NORMAL SINUS RHYTHM NORMAL ECG Confirmed by MD LIZ, QARAB ([id number]) on 11/30/2024 12:09:32 PM No results found for this or any previous visit (from the past 37006 hours). Surgical scrub given day of PST. ARISCAT risk index interpretation 0 to 25 points: Low risk: 1.6% pulmonary complication rate 26 to 44 points: Intermediate risk: 13.3% pulmonary complication rate 45 to 123 points: High risk: 42.1% pulmonary complication rate Implantable Devices: None The Following Tests/Procedures Have Been Initiated: No tests ordered in EPIC from surgeon Assessment/Plan Diagnosis: Ovarian mass [N83.8] PLAN Planned Procedure: Procedure(s): LAPAROSCOPIC HYSTERECTOMY TOTAL FOR UTERUS 250G OR LESS (N/A) EXAM UNDER ANESTHESIA PELVIC / VAGINAL (N/A) LAPAROSCOPIC SALPINGECTOMY (Bilateral) LAPAROSCOPIC OOPHORECTOMY (Left) TRANSFUSION BLOOD (N/A) I spent a total of 40 minutes on the date of the service which included preparing to see the patient, [id number] patient care, completing clinical documentation, obtaining and/or reviewing separately obtained history, performing a medically appropriate examination, and counseling and educating the patient/family/caregiver. Instructions Given to Patient: Instructions located in the after visit summary. Patient given verbal and written preop instructions and voices comprehension and compliance. SIGNATURE: Janel Garcia APRN.CNP PATIENT NAME: Ana Hernandez DATE: February 17, 2025 TIME: 7:49 AM PAGER/CONTACT #: [facility] 02-17-2025 History and physical note Images from the original note were not included. [facility] HISTORY AND PHYSICAL EXAMINATION SERVICE DATE: 02/17/2025 SERVICE TIME: 11:54 AM PRIMARY CARE PHYSICIAN: Myranda Dallas APRN.CNP Assessment Patient has the following medical conditions which may affect lupis-operative course: Preop examination Patient has the following medical conditions which may affect lupis-operative course addressed in assessment and plan today. Ovarian mass, right Surgery scheduled for 02/25/2025 Hyperlipidemia Controlled with statin continue preoperatively Tobacco use disorder 11.4-pack-year history Currently vaping Encouraged to cut back prior to surgery and avoid morning of surgery Diabetes mellitus type 2, controlled, without complications (HCC) A1c 8.October Jardiance stopped 3 days prior Metformin hold morning of surgery Migraines Propranolol take morning of surgery ANESTHESIA FINDINGS: Intubation History: No history of difficult intubation Significant Anesthesia Considerations: none Airway History: No history of difficult airway Brown Activity Status Index: METS: Climb a flight of stairs or walk up a hill (5.50 METs) DASI Score: 5.5 Patient denies any chest pain or undue shortness of breath with the above physical activity. STOP-Bang Score: STOP-Bang Score: 0 [id number] Score: Diabetes history: Yes [id number] Score: ARISCAT Score: Age: <=50 Preoperative SpO2: >=96% Preoperative anemia: No Surgical incision: upper abdominal Duration of surgery: >3 hrs Emergency procedure: No ARISCAT Score: I - PHYSICAL EVALUATION AIRWAY Patient intubated: No. DENTAL Dental findings: missing tooth/teeth and teeth intact. II - ANESTHESIA PLAN Anesthetic Plan: general Beta Susan Monitoring Plan Post Procedure Analgesic Plan Prepared for Surgery: . Per patient-no optimizations requested by surgeon for plan procedure. CONSULTS: Planned Anesthetic: general The Following Tests/Procedures Have Been Initiated: No orders of the defined types were placed in this encounter. The reason for this visit is to perform a comprehensive review of the patient's past medical history, assess their current health status and obtain any additional testing required based on anesthesia guidelines. We will also identify any potential anesthesia problems or contraindications to the planned procedure. REASON FOR VISIT: Ana Hernandez is a 45 year old female who is scheduled for Procedure(s): LAPAROSCOPIC HYSTERECTOMY TOTAL FOR UTERUS 250G OR LESS (N/A) EXAM UNDER ANESTHESIA PELVIC / VAGINAL (N/A) LAPAROSCOPIC SALPINGECTOMY (Bilateral) LAPAROSCOPIC OOPHORECTOMY (Left) TRANSFUSION BLOOD (N/A) at the request of Dr. Aaron Blount for routine H&P. My final recommendation will be communicated back to the requesting physician by way of shared medical record or letter. Subjective The patient has the following: COVID-19 Immunization Status Current Care Gaps Covid-19 Vaccine ( season) Overdue since 05/02/2024 05/29/2022 Imm Admin: COVID-19 vaccine, age 12+ yr, bivalent (MODERNA) 03/06/2022 Imm Admin: COVID-19 original vaccine, full dose, monovalent (MODERNA) 07/12/2021 Imm Admin: COVID-19 original vaccine, full dose, monovalent (MODERNA) Only the first 3 history entries have been loaded, but more history exists. CHIEF COMPLAINT: The reason for this visit is to perform a comprehensive review of the patient's past medical history, assess their current health status and obtain any additional testing required based on anesthesia guidelines. We will also identify any potential anesthesia problems or contraindications to the planned procedure. HPI: Patient is a 45 year old female who presents for pre surgical testing. Patient states she has had irregular periods for several years with her last being in November 2024. She went to the emergency room recently due to severe abdominal pain had an ultrasound showing a 7.9 cm mass. She states she has pain rated 0-10 intermittently and it often wakes her at night. She describes the pain as sharp. She uses ibuprofen and Tylenol with an occasional [place] for relief. She was referred to oncology and after discussion with the surgeon agrees to surgical intervention. REVIEW OF SYSTEMS: General: Negative for: unintentional weight change, malaise and fever. Neurological: Positive for: headaches. Negative for: seizures and strokes. Respiratory: Positive for: asthma and tobacco use. Negative for: COPD, pneumonia within 6 weeks, URI < 2 weeks and obstructive sleep apnea. Cardiovascular: Positive for: hyperlipidemia Negative for: atrial fibrillation, CAD, chest pain, CHF and DVT/PE. GI: Negative for: abdominal pain, GERD, nausea and vomiting. : Negative for: dysuria, hematuria and renal failure. BUSINESS APPLICATIONS ANALYST: See HPI. Endocrine: Positive for: diabetes mellitus. Patient's diabetes mellitus is controlled by oral agents. Negative for: hyperthyroidism and hypothyroidism. Hematology: Negative for: anemia, factor V Leiden and von Willebrand disease. Oncology: No history of CA metastasis, chemo within 30 days, or radiotherapy within 90 days. No history of oncological symptoms or problems. Psych: Positive for: depression. Negative for: anxiety. Musculoskeletal: Negative for: back pain and joint pain. Skin: Negative for lesions, rash and itching. PAST MEDICAL HISTORY Diagnosis Date ABN GLUCOSE-ANTEPARTUM 05/23/2006 Calculus of ureter 05/23/2006 Callus of foot COMMON MIGRAINE W/O MENTN INTRACT 05/23/2006 DEPRESSIVE DISORDER NEC 08/20/200606/09 -Stable, no meds Fatty liver 06/05/2009 CT Scan 01/06, showed diffuse fatty liver. LFTs elevated in past, but 06/09 - normal GOITER NOS 09/28/2006 TSH normal Lumbago 05/23/2006 Mild intermittent asthma without complication (HCC) 05/23/2006 Since age 11. No medication. Last attack > 10 years OBESITY NOS 05/23/2006 Peripheral autonomic neuropathy due to diabetes mellitus (HCC) PMH - PAST MEDICAL HISTORY OF kidney stones Polycystic ovaries 05/23/2006 Snoring Sprain of lumbar region 08/04/2014 Tobacco use disorder 06/05/2009 Type II or unspecified type diabetes mellitus without mention of complication, not stated as uncontrolled 06/05/2009 PAST SURGICAL HISTORY Procedure Laterality Date DELIVERY ONLY , low cervical COLONOSCOPY 08/28/2018 hemorrhoid banding L'SCOPE DX W/WO BRUSHINGS/WASHINGS 04/15/2024 LAPAROSCOPY SURG CHOLECYSTECTOMY Cholecystectomy, lap MYRINGOTOMY ASPIR&/EUSTACHIAN TUBE NFLTJ ANES Myringotomy/tubes PAST SURGICAL HISTORY OF stents in ureter for kidney stones PAST SURGICAL HISTORY OF 08/04/2014 lumbar pain injections. TONSILLECTOMY PRIMARY/SECONDARY <AGE 12 Tonsillectomy FAMILY HISTORY Problem Relation Age of Onset Diabetes Mother Diabetes Father Colon Cancer Father 61 Diabetes Maternal Grandmother other (Parkinson's) Maternal Grandmother Stroke Maternal Grandfather Diabetes Maternal Grandfather Colon Cancer Paternal Grandfather Social History Tobacco Use Smoking status: Former Current packs/day: 0.00 Average packs/day: 0.3 packs/day for 3.0 years (0.9 ttl pk-yrs) Types: Cigarettes Start date: 09/10/2010 Quit date: 09/10/2013 Years since quittin.4 Smokeless tobacco: Never Tobacco comments: uses E cigs Vaping Use Vaping status: current everyday user Substances: Nicotine, Flavoring Devices: 1SDK Substance Use Topics Alcohol use: No Drug use: No Prior to Admission medications as of 02/04/25 1047 Medication Sig Last Dose Taking HYDROcodone-acetaminophen (NORCO) 5-325 mg per tablet take 1 tablet by mouth three times a day if needed for BREAKTHROUGH PAIN Yes docusate sodium (COLACE) 100 mg capsule Take 1 capsule by mouth two times a day. Yes Senna 8.6 mg tab Take 1 tablet by mouth two times a day as needed for constipation. Yes hydrOXYzine HCl (ATARAX) 10 mg tablet Take 10 mg by mouth three times a day as needed for anxiety. Yes empagliflozin (JARDIANCE) 25 mg tablet Take 1 tablet by mouth daily with breakfast. Yes magnesium oxide (MAG-OX) 400 mg (241.3 mg magnesium) tablet Take 1 tablet by mouth three times a day. Yes simvastatin (ZOCOR) 40 mg tablet Take 1 tablet by mouth daily at bedtime. Yes busPIRone HCl 30 mg tablet Take 1 tablet by mouth two times a day. Yes venlafaxine ER (EFFEXOR XR) 75 mg 24 hr capsule Take 1 capsule by mouth once daily. Yes amitriptyline (ELAVIL) 100 mg tablet Take 1 tablet by mouth daily at bedtime. Yes propranolol (INDERAL) 40 mg tablet Take 1 tablet by mouth two times a day. Yes topiramate (TOPAMAX) 50 mg tablet Take 1 tablet by mouth two times a day. Yes polyethylene glycol 3350 17 gram/dose powder Take 17 g by mouth once daily. Yes metFORMIN (GLUCOPHAGE) 1,000 mg tablet Take 1 tablet by mouth two times a day with meals. Yes ZINC ORAL Take 50 mg by mouth once daily. Yes cholecalciferol, vitamin D3, (VITAMIN D3 ORAL) Take 1 tablet by mouth once daily. Yes albuterol HFA (PROAIR HFA) 90 mcg/actuation inhaler Inhale 2 Puffs as instructed every 4 hours as needed. Yes omega-3 fatty acids (FISH OIL CONCENTRATE) 1,000 mg cap Take 1,000 mg by mouth once daily. Yes multivit-minerals/ferrous fum (MULTI VITAMIN ORAL) Take 1 tablet by mouth once daily. Yes TIZANIDINE HCL (ZANAFLEX ORAL) Take by mouth two times a day as needed. Yes iv contrast (will be provided with radiology test) CT Chest ABD/PEL-Inject, intravenously, once for 1 dose.No IV access, insert saline lock prior to the beginning of sedation, infusion, injection of imaging exam. Discontinue saline lock post exam. If Pt. has a central line or IVAD, may access for administration according to line specific nursing protocol. Once exam is complete flush line and de-access according to line specific nursing protocol in the CT contrast administration guidelines link. enteric contrast (will be provided with radiology test) For CT CHESTABD/PEL W IVCON Routine order Administer, As Directed One Time Only, via Oral, Rectal, both Oral and Rectal, Enteric Tube, Stoma or Indwelling Catheter, Enteric Contrast as designated per enteric contrast guidelines naloxone 4 mg/actuation nasal spray (NARCAN) Use 1 spray in one nostril as needed for overdose. May repeat every 2 to 3 min in alternating nostrils until medical assistance is available blood-glucose meter,mobile dev (iPeen BLOOD GLUCOSE MONITOR) lyn No medication comments found. ALLERGIES Allergen Reactions Avelox [Moxifloxaci* Rash Doxy [Doxycycline] GI Upset Morphine Rash, Hives, Itching Penicillins Other: See Comments Mother does not recall what the reaction was and was told that she cannot take it Prozac [Fluoxetine * Other: See Comments Mother had side effects from this Objective PHYSICAL EXAM: General: alert and oriented and healthy appearance. Pertinent negatives noted - not distressed. Skin: normal color, no rash or lesions. HEENT: pupils equal round. Cardiovascular: regular rate and rhythm, normal S1 and S2, no rub, murmurs, or gallop. Respiratory: normal breath sounds, no wheezes or crackles. No chest wall deformity or tenderness. Abdomen: bowel sounds present. Extremities: no deformity, no edema or tenderness, no joint swelling or clubbing. Neurological: normal cognition and motor skills. Gait normal. No weakness or sensory deficit. PAIN ASSESSMENT: Pain Pain Level: 5 Pain Location: Abdomen-Mid Lower VITALS: BP 122/83 Pulse 64 Temp 97.9 Resp 14 Ht 5' 2 (1.58m) Wt 192 lb (87.1kg) SpO2 97% LMP 12/08/2023 BMI 35.11 kg/(m^2). Diagnostic tests reviewed for today's visit: Lab Value Units Date High Low HB 13.3 g/dL 02/04/2025 15.5 11.5 HCT 41.2 % 02/04/2025 46.0 36.0 WBC 11.16 k/uL 02/04/2025 11.00 3.70 PLT 276 k/uL 02/04/2025 400 150 NA 141 mmol/L 02/04/2025 144 136 K 3.7 mmol/L 02/04/2025 5.1 3.7 GLUC 133 mg/dL 02/04/2025 99 74 BUN 16 mg/dL 02/04/2025 21 7 CREAT 0.90 mg/dL 02/04/2025 0.96 0.58 PTSEC No results within date range. INR No results within date range. APTT No results within date range. ALT 59 U/L 11/18/2024 38 7 AST 43 U/L 11/18/2024 35 13 TBILI 0.4 mg/dL 11/18/2024 1.3 0.2 TSH 1.710 mIU/L 11/18/2024 4.200 0.270 Lab Value Units Date High Low HCGQT No results within date range. UHCG No results within date range. HCG, BODY* No results within date range. Lab Value Units Date High Low ABORHD No results within date range. ABSCREEN No results within date range. Hemoglobin A1C Date Value 11/18/2024 8.0 % 04/06/2024 6.9 02/26/2024 7.5 % 09/15/2023 7.5 % 02/21/2022 7.0 % 08/17/2021 6.3 % 02/04/2020 6.5 % 11/08/2019 6.4 % 01/23/2019 6.0 % 08/17/2018 5.9 % Recent Results (from the past 8760 hours) ECG COMPLETE Collection Time: 11/18/24 9:56 AM Result Value Ventricular Rate 88 Atrial Rate 88 P-R Interval 168 QRS Duration 76 QT Interval 368 QTC Calculation (Bazett) 445 Calculated P [place] 40 Calculated R [place] 7 Calculated T [place] 46 Impression NORMAL SINUS RHYTHM NORMAL ECG Confirmed by MD LIZ, QARAB ([id number]) on 11/30/2024 12:09:32 PM No results found for this or any previous visit (from the past 79396 hours). Surgical scrub given day of PST. ARISCAT risk index interpretation 0 to 25 points: Low risk: 1.6% pulmonary complication rate 26 to 44 points: Intermediate risk: 13.3% pulmonary complication rate 45 to 123 points: High risk: 42.1% pulmonary complication rate Implantable Devices: None The Following Tests/Procedures Have Been Initiated: No tests ordered in [facility] from surgeon Assessment/Plan Diagnosis: Ovarian mass [N83.8] PLAN Planned Procedure: Procedure(s): LAPAROSCOPIC HYSTERECTOMY TOTAL FOR UTERUS 250G OR LESS (N/A) EXAM UNDER ANESTHESIA PELVIC / VAGINAL (N/A) LAPAROSCOPIC SALPINGECTOMY (Bilateral) LAPAROSCOPIC OOPHORECTOMY (Left) TRANSFUSION BLOOD (N/A) I spent a total of 40 minutes on the date of the service which included preparing to see the patient, [id number] patient care, completing clinical documentation, obtaining and/or reviewing separately obtained history, performing a medically appropriate examination, and counseling and educating the patient/family/caregiver. Instructions Given to Patient: Instructions located in the after visit summary. Patient given verbal and written preop instructions and voices comprehension and compliance. SIGNATURE: Janel Garcia APRN.CNP PATIENT NAME: Ana Hernandez DATE: February 17, 2025 TIME: 7:49 AM PAGER/CONTACT #: documented in this encounter [facility] 02-15-2025 History of Present illness Narrative Radiology Service Progress Note DATE OF SERVICE: February 15, 2025 TIME: 2:49 PM PATIENT IDENTITY VERIFICATION COMPLETED USING TWO (2) STANDARD IDENTIFIERS: Name and Date of confirmed by patient verbally. FALL SCREENING: Has the patient had 2 falls in the last year or 1 fall with injury or currently using an Ambulatory Assistive Device (Walker, Cane, Wheelchair, Crutches, etc.)? No PATIENT GENDER DATA: Assigned female at . status: : No status: NO. PATIENT RELEVANT IMPLANT DATA REVIEWED: Yes PATIENT PRESENTS WITH AN IMPLANTABLE OR ATTACHED FINAL CANOE INSPECTOR: No ALLERGIES: Reviewed and unchanged CONTRAST ALLERGY: NO. EXAM: CT -CONTRAST INDUCED NEPHROPATHY RISK FACTORS: Not applicable CREATININE: Creatinine Date Value Ref Range Status 02/04/2025 0.90 0.58 - 0.96 mg/dL Final 11/18/2024 0.90 0.58 - 0.96 mg/dL Final 03/15/2024 1.06 (H) 0.58 - 0.96 mg/dL Final Estimated Glomerular Filtration Rate Date Value Ref Range Status 02/04/2025 81 >=60 mL/min/1.73m Final Comment: Estimated Glomerular Filtration Rate (eGFR) is calculated using the 2020 CKD-EPI creatinine equation. This equation utilizes serum creatinine, sex, and age as parameters. The creatinine assay has traceable calibration to isotope dilution-mass spectrometry. Refer to KDIGO guidelines for clinical interpretation. In patients with unstable renal function, e.g. those with acute kidney injury, the eGFR may not accurately reflect actual GFR. eGFR- Date Value Ref Range Status 08/17/2021 >60 Final P.O.C.T. RESULTS: POC done: Yes, See Lab Tab February 15, 2025 TREATMENT: N/A PERIPHERAL IV DATA: Ambulatory: A peripheral IV was started in the Left antecubital site with a Angio cath: 22 gauge. RADIOLOGY DEPARTMENT: CT; Exam(s) Completed: Chest Abdomen Pelvis SIGNATURE: RT Nhung(Rafa) PATIENT NAME: Ana Hernandez DATE: February 15, 2025 TIME: 2:49 PM documented in this encounter [facility] 02-15-2025 Note HNO ID: [id number] Author: HAZEL ZULUAGA RT(R) Service: ? Author Type: Variety Saw Operator Type: Progress Notes Filed: 02/15/2025 14:50 Note Text: Radiology Service Progress Note DATE OF SERVICE: February 15, 2025 TIME: 2:49 PM PATIENT IDENTITY VERIFICATION COMPLETED USING TWO (2) STANDARD IDENTIFIERS: Name and Date of confirmed by patient verbally. FALL SCREENING: Has the patient had 2 falls in the last year or 1 fall with injury or currently using an Ambulatory Assistive Device (Walker, Cane, Wheelchair, Crutches, etc.)? No PATIENT GENDER DATA: Assigned female at . status: : No status: NO. PATIENT RELEVANT IMPLANT DATA REVIEWED: Yes PATIENT PRESENTS WITH AN IMPLANTABLE OR ATTACHED FINAL CANOE INSPECTOR: No ALLERGIES: Reviewed and unchanged CONTRAST ALLERGY: NO. EXAM: CT -CONTRAST INDUCED NEPHROPATHY RISK FACTORS: Not applicable CREATININE: Creatinine Date Value Ref Range Status 02/04/2025 0.90 0.58 - 0.96 mg/dL Final 11/18/2024 0.90 0.58 - 0.96 mg/dL Final 03/15/2024 1.06 (H) 0.58 - 0.96 mg/dL Final Estimated Glomerular Filtration Rate Date Value Ref Range Status 02/04/2025 81 >=60 mL/min/1.73m? Final Comment: Estimated Glomerular Filtration Rate (eGFR) is calculated using the 2020 CKD-EPI creatinine equation. This equation utilizes serum creatinine, sex, and age as parameters. The creatinine assay has traceable calibration to isotope dilution-mass spectrometry. Refer to KDIGO guidelines for clinical interpretation. In patients with unstable renal function, e.g. those with acute kidney injury, the eGFR may not accurately reflect actual GFR. eGFR- Date Value Ref Range Status 08/17/2021 >60 Final P.O.C.T. RESULTS: POC done: Yes, See Lab Tab February 15, 2025 TREATMENT: N/A PERIPHERAL IV DATA: Ambulatory: A peripheral IV was started in the Left antecubital site with a Angio cath: 22 gauge. RADIOLOGY DEPARTMENT: CT; Exam(s) Completed: Chest Abdomen Pelvis SIGNATURE: RT Nhung(R) PATIENT NAME: Ana Hernandez DATE: February 15, 2025 TIME: 2:49 PM [facility] 02-11-2025 Instructions Janel Garcia APRN.[facility] - 02/11/2025 7:49 AM EDT PATIENT PREOPERATIVE INSTRUCTIONS Aaron Blount MD has scheduled you for your procedure at this surgery center: [facility]: [phone], [address] [address] Please read below carefully for your personalized instructions. Date of Surgery: 02/25/25 Arrival Time for Surgery: Your surgeon's office will provide you with your arrival time for surgery if they have not done so already. If you do not have your arrival time for surgery by the afternoon the day before your surgery you can call the surgeon's office. If you are scheduled for a Friday surgery you can call the Friday before. - Please be aware that emergency situations arise, which may delay or change your surgical time. If this happens, your surgeon's office will notify you as soon as possible and regret any inconvenience. Requirements for vaccination; 72-hour. Between getting vaccine and date of surgery Dietary Restrictions: - No solid food after midnight. - You may have 12 ounces of clear liquids (water, clear juices such as apple juice or gatorade, carbonated beverages, clear tea, black coffee, jello) until 2 hours before scheduled arrival at facility. This is important because if you do, your procedure may be canceled Medications: Pre Surgery Med Instructions Medication instructions albuterol HFA (PROAIR HFA) 90 mcg/actuation inhaler If you normally take this medication in the morning, it is ok to take the morning of surgery with a sip of water. amitriptyline (ELAVIL) 100 mg tablet Takes at night busPIRone HCl 30 mg tablet If you normally take this medication in the morning, it is ok to take the morning of surgery with a sip of water. cholecalciferol, vitamin D3, (VITAMIN D3 ORAL) Stop 7 days before surgery. docusate sodium (COLACE) 100 mg capsule DO NOT TAKE THE MORNING OF SURGERY. empagliflozin (JARDIANCE) 25 mg tablet Stop 3 days before surgery. HYDROcodone-acetaminophen (NORCO) 5-325 mg per tablet If you normally take this medication in the morning, it is ok to take the morning of surgery with a sip of water. hydrOXYzine HCl (ATARAX) 10 mg tablet If you normally take this medication in the morning, it is ok to take the morning of surgery with a sip of water. magnesium oxide (MAG-OX) 400 mg (241.3 mg magnesium) tablet Stop 7 days before surgery. metFORMIN (GLUCOPHAGE) 1,000 mg tablet DO NOT TAKE THE MORNING OF SURGERY. multivit-minerals/ferrous fum (MULTI VITAMIN ORAL) Stop 7 days before surgery. omega-3 fatty acids (FISH OIL CONCENTRATE) 1,000 mg cap Stop 7 days before surgery. polyethylene glycol 3350 17 gram/dose powder DO NOT TAKE THE MORNING OF SURGERY. propranolol (INDERAL) 40 mg tablet If you normally take this medication in the morning, it is ok to take the morning of surgery with a sip of water. Senna 8.6 mg tab DO NOT TAKE THE MORNING OF SURGERY. simvastatin (ZOCOR) 40 mg tablet At night TIZANIDINE HCL (ZANAFLEX ORAL) DO NOT TAKE THE MORNING OF SURGERY. topiramate (TOPAMAX) 50 mg tablet If you normally take this medication in the morning, it is ok to take the morning of surgery with a sip of water. venlafaxine ER (EFFEXOR XR) 75 mg 24 hr capsule If you normally take this medication in the morning, it is ok to take the morning of surgery with a sip of water. ZINC ORAL Stop 7 days before surgery. Blood pressure medications See med list for instructions Take beta susan day of surgery Do not take MEE or ARB medications day of surgery Weight loss medications Sympathomimetics such as Adipex-P (Phentermine): Stop 4 days before surgery. Contrave (Naltrexone/Bupropion) Hold 2-3 days. Qsymia (Phentermine/Topiramate - Please contact your prescribing provider for Pre op directions. ( depending on the patients dose this medication may need tapered off. They should get pre op directions from their prescribing provider.) GLP-1 Agonists (oral and injectables) Hold 7 days. Blood Thinning Medications: - Stop NSAIDS (Ibuprofen, Advil, Aleve, Motrin, Celebrex, Mobic, etc.) 7 days before surgery, as directed by your surgeon. - You may take Tylenol (Acetaminophen) or any of your current prescribed pain medications that do not contain aspirin or NSAIDS as needed. - If you take any of the following blood thinners, please contact your surgeon and the physician who prescribes it for you in order to get perioperative instructions as soon as possible Blood thinners: Aspirin,Coumadin, Plavix, Eliquis, Pradaxa, Xarelto, Lovenox, Brilinta, Effient, Savaysa, etc. Supplements - Stop Vitamin E, fish oil, Ginko, Seaman's Wort, flax seed oil, multivitamins, CBD oil, marijuana and other over the counter herbals and dietary supplements 7 days before surgery. This would not apply to cancer patients who are prescribed Marinol or any other prescription form of marijuana or CBD. If you are taking Phentermine please hold 4 days prior to surgery. Diabetes Medications Do not take the morning of surgery; Trajenta, Metformin, Actos/Pioglitazone and Amaryl/Glimepiride. For the following Medications, please HOLD 2 DAYS PRIOR TO SURGERY: Glucotrol/Glipizide, Januvia/Sitagliptin, Glyburide, Prandin/Repaglinide, Starlix/Nateglinide, Symlin/Pramlintide, For the following Medications, please HOLD 3 DAYS PRIOR TO SURGERY: Canagliflozin/Invokana, Dapagliflozin/Farxiga ,Empagliflozin/Jardiance, Invokamet/canagliflozin and metformin, Xigduo XR/ dapagliglozin and metformin, Glyxambi/ empagliflozin and metformin, Syndardy/ empagliflozin and metformin For the following Medications, please HOLD 4 DAYS PRIOR TO SURGERY: Ertugliflozin/Steglatro For the following Medications, please HOLD 7 DAYS PRIOR TO SURGERY: GLP-1 AGONIST: Adlyxin (lixisenatide), Bydureon BCise (exenatide suspension), Byetta (exenatide), Mounjaro (tirzepatide), Ozempic (semaglutide injection), Rybelsus (semaglutide tablets), Tanzeum (albiglutide), Trulicity (dulaglutide), Victoza (liraglutide), Wegovy (semaglutide), Saxenda (liraglutide) Insulin Medication Instructions: Please follow up with the provider that manages your Insulin and how to prepare you for surgery. Pain medications Approved pain medications can be taken the morning of surgery with a sip of water. For methadone instructions call surgeon and physician that prescribes it for pre op instructions. And send message to pharmacist If you start any new medications after today's visit, please contact the surgeon's office. Important Reminders: - If you use CPAP/BIPAP, bring the machine with you to the hospital if you are scheduled to stay over night. - If you are prescribed inhalers for breathing, continue using them AND bring them to the surgery center. - Candy, mints, gum and tobacco products are NOT permitted the morning of surgery. - Hearing aids, dentures and glasses may be worn the morning of surgery. - NO jewelry, body piercings, makeup, hairpins or contacts are to be worn the day of surgery. - NO lotion, creams, powders or deodorants on the skin the day of surgery - You will need to have someone else (Family or friend) drive you home once discharged from the hospital. You cannot take a cab or Uber. You are not allowed to drive yourself home after surgery. -You will need an adult(over the age of 18) to stay with you for the first 24 hours post surgery or your surgery may be cancelled. Please speak with your surgeon if this is an issue. If you develop symptoms such as a fever, cold, or flu, or have other changes to your health within TWO DAYS of scheduled surgery or the morning of surgery, please contact the surgery center above. Personal Belongings: - Leave ALL valuables and money at home or with family members. - You will need a form of ID and insurance card to check in the morning of surgery. - You will have to wear a hospital gown during your stay but if you wish to bring undergarments for after surgery you may. -If you do not have a copy of advance directives on file with us, please bring a copy with you on the day of surgery. If you already have an Advance Directive, please fax a copy to [phone] or email to for it to be added to your chart. If you do not have an Advance Directive, you can find the appropriate form and more information at [email or web address]. We recommend that you complete the Advance Directive form found on the website and bring it with you the day of your surgery. It can be witnessed and scanned into your chart that day. Please note-you should have a 72-hour period between getting your vaccine and date of surgery - If you have a stimulator, implant or pump that requires a remote please bring the remote with you day of surgery Hibiclens provided to patients requiring soap for surgery The anti-bacterial soap (Hibiclens) should be used TWICE prior to surgery: The night before surgery and the morning of surgery: - If you plan to wash your hair, do so with your regular shampoo. Then rinse hair and body thoroughly to remove any shampoo residue. - Wash your face with water or your regular soap. - Thoroughly rinse your body with water from the neck down - Apply Hibiclens directly on your skin or on a wet washcloth and wash gently. Move away from the shower stream when applying Hibiclens to ensure the CHG binds to the skin. - Pay special attention to the area where your surgery will be performed - Rinse thoroughly - Apply clean bedding and clean clothing after shower Do not use your regular soap after applying and rinsing Hibiclens. Do not apply any lotions, deodorants, powders, or perfumes to the body areas that have been cleaned with Hibiclens. If you already have an Advance Directive, please fax a copy to [phone] or Aishwarya SALMERON at [phone] or email to for it to be added to your chart. If you do not have an Advance Directive, you can find the appropriate form and more information at [email or web address]. We recommend that you complete the Advance Directive form found on the website and bring it with you the day of your surgery. It can be witnessed and scanned into your chart that day. Janel Garcia APRN.CNP documented in this encounter [facility] 02-08-2025 Note HNO ID: [id number] Author: AARON BLOUNT MD Service: ? Author Type: Physician Type: Progress Notes Filed: 02/08/2025 11:18 Note Text: GYNECOLOGIC ONCOLOGY FOLLOW UP SERVICE DATE: 02/07/2025 SERVICE TIME: 10:42 PM I have communicated my name and active licensure. The patient's identity and physical location were verified at the time of this visit. Either the patient or their legal telemarketing representative has been informed of the risks and benefits of -- and alternatives to -- treatment through a remote evaluation and consents to proceed with the evaluation remotely. PRIMARY CARE PHYSICIAN: Myranda Dallas APRN.CNP CHIEF COMPLAINT/HISTORY OF PRESENT ILLNESS/ROS: CC: Ovarian cyst Referring Provider: Myriam Rivera MD HPI: Still having significant pain, controlled with PO medication after trip to ED. No new symptoms today. The history is provided by the spouse and the patient. No websphere portal architect was used. Treatment history: - 01/17/2025: Presented to ED with abdominal pain, RLQ. Found to have 7.9 cm ovarian mass ORADS 5. Previous US from one year ago with a normal ovary. Still in pain. Did take pain meds this am. No bleeding. Does have nausea and vomiting and early satiety. Was going to have a hysterectomy ;ast year for bleeding however there was too much scar tissue from previous surgery on laparoscopy. She was referred to [facility]. - 02/04/2025: Referred to [facility], tumor markers notable for elevation of CA19-9: 63.5, CA-125 and CEA WNL ROS: Review of Systems Constitutional: Positive for unexpected weight change. Gastrointestinal: Positive for abdominal pain. Genitourinary: Positive for pelvic pain and vaginal bleeding. PAST MEDICAL/SURGICAL/OB-BUSINESS APPLICATIONS ANALYST/FAMILY/SOC IAL HISTORY: PAST MEDICAL HISTORY Diagnosis Date ABN GLUCOSE-ANTEPARTUM 05/23/2006 ASTHMA UNSPECIFIED 05/23/2006 Calculus of ureter 05/23/2006 Callus of foot Callus of foot COMMON MIGRAINE W/O MENTN INTRACT 05/23/2006 DEPRESSIVE DISORDER NEC 08/20/200606/09 -Stable, no meds Family history of diabetes mellitus 05/23/2006 Mother, Father, Maternal Grandparents FAMILY HX DIABETES MELLITUS 05/23/2006 Mother, Father, Maternal Grandparents Fatty liver 06/05/2009 CT Scan 01/06, showed diffuse fatty liver. LFTs elevated in past, but 06/09 - normal GOITER NOS 09/28/2006 TSH normal Lumbago 05/23/2006 Mild intermittent asthma without complication (HCC) 05/23/2006 Since age 11. No medication. Last attack > 10 years OBESITY NOS 05/23/2006 Peripheral autonomic neuropathy due to diabetes mellitus (HCC) PMH - PAST MEDICAL HISTORY OF kidney stones Polycystic ovaries 05/23/2006 Polycystic ovaries 05/23/2006 Snoring Sprain of lumbar region 08/04/2014 Tobacco use disorder 06/05/2009 Type II or unspecified type diabetes mellitus without mention of complication, not stated as uncontrolled 06/05/2009 Unspecified asthma(493.90) PAST SURGICAL HISTORY Procedure Laterality Date DELIVERY ONLY , low cervical COLONOSCOPY 08/28/2018 hemorrhoid banding L'SCOPE DX W/WO BRUSHINGS/WASHINGS 04/15/2024 LAPAROSCOPY SURG CHOLECYSTECTOMY Cholecystectomy, lap MYRINGOTOMY ASPIRAND/EUSTACHIAN TUBE NFLTJ ANES Myringotomy/tubes PAST SURGICAL HISTORY OF stents in ureter for kidney stones PAST SURGICAL HISTORY OF 08/04/2014 lumbar pain injections. 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 NURSE GYNECOLOGY HISTORY: 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 LMP: 03/08/2024 (Approximate), Hysterectomy Age at Menarche: Age at First : Age at Menopause: [employer] History Comments: Sexual Activity: Yes; Male Contraception: No contraception data on record Hormonal contraceptives: Yes, OCPs and DMPA (1 shot) How long: approximately 2-3 years. HRT use: N/A . History of abnormal pap: No. 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 [facility] 02-08-2025 History of Present illness Narrative GYNECOLOGIC ONCOLOGY FOLLOW UP SERVICE DATE: 02/07/2025 SERVICE TIME: 10:42 PM I have communicated my name and active licensure. The patient's identity and physical location were verified at the time of this visit. Either the patient or their legal telemarketing representative has been informed of the risks and benefits of -- and alternatives to -- treatment through a remote evaluation and consents to proceed with the evaluation remotely. PRIMARY CARE PHYSICIAN: Myranda Dallas APRN.BIOINFORMATICS COMPUTER SCIENTIST CHIEF COMPLAINT/HISTORY OF PRESENT ILLNESS/ROS: CC: Ovarian cyst Referring Provider: Myriam Rivera MD HPI: Still having significant pain, controlled with PO medication after trip to ED. No new symptoms today. The history is provided by the spouse and the patient. No websphere portal architect was used. Treatment history: - 01/17/2025: Presented to ED with abdominal pain, RLQ. Found to have 7.9 cm ovarian mass ORADS 5. Previous US from one year ago with a normal ovary. Still in pain. Did take pain meds this am. No bleeding. Does have nausea and vomiting and early satiety. Was going to have a hysterectomy ;ast year for bleeding however there was too much scar tissue from previous surgery on laparoscopy. She was referred to [facility]. - 02/04/2025: Referred to [facility], tumor markers notable for elevation of CA19-9: 63.5, CA-125 and CEA WNL ROS: Review of Systems Constitutional: Positive for unexpected weight change. Gastrointestinal: Positive for abdominal pain. Genitourinary: Positive for pelvic pain and vaginal bleeding. PAST MEDICAL/SURGICAL/OB-BUSINESS APPLICATIONS ANALYST/FAMILY/SOC IAL HISTORY: PAST MEDICAL HISTORY Diagnosis Date ABN GLUCOSE-ANTEPARTUM 05/23/2006 ASTHMA UNSPECIFIED 05/23/2006 Calculus of ureter 05/23/2006 Callus of foot Callus of foot COMMON MIGRAINE W/O MENTN INTRACT 05/23/2006 DEPRESSIVE DISORDER NEC 08/20/200606/09 -Stable, no meds Family history of diabetes mellitus 05/23/2006 Mother, Father, Maternal Grandparents FAMILY HX DIABETES MELLITUS 05/23/2006 Mother, Father, Maternal Grandparents Fatty liver 06/05/2009 CT Scan 01/06, showed diffuse fatty liver. LFTs elevated in past, but 06/09 - normal GOITER NOS 09/28/2006 TSH normal Lumbago 05/23/2006 Mild intermittent asthma without complication (HCC) 05/23/2006 Since age 11. No medication. Last attack > 10 years OBESITY NOS 05/23/2006 Peripheral autonomic neuropathy due to diabetes mellitus (HCC) PMH - PAST MEDICAL HISTORY OF kidney stones Polycystic ovaries 05/23/2006 Polycystic ovaries 05/23/2006 Snoring Sprain of lumbar region 08/04/2014 Tobacco use disorder 06/05/2009 Type II or unspecified type diabetes mellitus without mention of complication, not stated as uncontrolled 06/05/2009 Unspecified asthma(493.90) PAST SURGICAL HISTORY Procedure Laterality Date DELIVERY ONLY , low cervical COLONOSCOPY 08/28/2018 hemorrhoid banding L'SCOPE DX W/WO BRUSHINGS/WASHINGS 04/15/2024 LAPAROSCOPY SURG CHOLECYSTECTOMY Cholecystectomy, lap MYRINGOTOMY ASPIR&/EUSTACHIAN TUBE NFLTJ ANES Myringotomy/tubes PAST SURGICAL HISTORY OF stents in ureter for kidney stones PAST SURGICAL HISTORY OF 08/04/2014 lumbar pain injections. TONSILLECTOMY PRIMARY/SECONDARY <AGE 13 Tonsillectomy PAST NURSE GYNECOLOGY HISTORY: 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 LMP: 03/08/2024 (Approximate), Hysterectomy Age at Menarche: Age at First : Age at Menopause: [employer] History Comments: Sexual Activity: Yes; Male Contraception: No contraception data on record Hormonal contraceptives: Yes, OCPs and DMPA (1 shot) How long: approximately 2-3 years. HRT use: N/A . History of abnormal pap: No. 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: [employer] Tobacco Use Smoking status: Former Packs/day: 0.00 Years: 0.3 packs/day for 3.0 years (0.9 ttl pk-yrs) Types: Cigarettes Start date: 09/10/2010 Quit date: 09/10/2013 Years since quittin.4 Smokeless tobacco: Never Tobacco comments: uses E cigs Vaping Use Vaping status: current everyday user Substances: Nicotine, Flavoring Devices: Refillable tank Substance and Sexual Activity Alcohol use: No Drug use: No Sexual activity: Yes Partners: Male Social History Narrative 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, lives with Social Drivers of Health Financial Resource Strain: Medium Risk (12/17/2024) Overall Financial Resource Strain (CARDIA) Difficulty of Paying Living Expenses: Somewhat hard Food Insecurity: Food Insecurity Present (12/17/2024) Hunger Vital Sign Worried About Running Out of Food in the Last Year: Sometimes true Ran Out of Food in the Last Year: Sometimes true Transportation Needs: No Transportation Needs (12/17/2024) PRAPARE - Transportation Lack of Transportation (Medical): No Lack of Transportation (Non-Medical): No Physical Activity: Inactive (12/17/2024) Exercise Vital Sign Days of Exercise per Week: 0 days Minutes of Exercise per Session: 0 min Stress: Stress Concern Present (12/17/2024) Citizen Of [place] of Occupational Health - Occupational Stress Questionnaire Feeling of Stress : Very much Social Connections: Socially Isolated (12/17/2024) Social Connection and Isolation Panel [NHANES] Frequency of Communication with Friends and Family: Once a week Frequency of Social Gatherings with Friends and Family: Once a week Attends Taoist Services: Never Active Member of Clubs or Organizations: No Attends Club or Organization Meetings: Patient declined Marital Status: Housing Stability: Low Risk (09/15/2023) Housing Stability Vital Sign Unable to Pay for Housing in the Last Year: No Number of Places Lived in the Last Year: 1 Unstable Housing in the Last Year: No MEDICATIONS / ALLERGIES: Current Outpatient Medications Medication Sig iv contrast (will be provided with radiology test) CT Chest ABD/PEL-Inject, intravenously, once for 1 dose.No IV access, insert saline lock prior to the beginning of sedation, infusion, injection of imaging exam. Discontinue saline lock post exam. If Pt. has a central line or IVAD, may access for administration according to line specific nursing protocol. Once exam is complete flush line and de-access according to line specific nursing protocol in the CT contrast administration guidelines link. enteric contrast (will be provided with radiology test) For CT CHESTABD/PEL W IVCON Routine order Administer, As Directed One Time Only, via Oral, Rectal, both Oral and Rectal, Enteric Tube, Stoma or Indwelling Catheter, Enteric Contrast as designated per enteric contrast guidelines oxyCODONE IR (ROXICODONE) 5 mg immediate release tablet Take 1 tablet by mouth every 8 hours as needed for pain for up to 7 days. docusate sodium (COLACE) 100 mg capsule Take 1 capsule by mouth two times a day. Senna 8.6 mg tab Take 1 tablet by mouth two times a day as needed for constipation. naloxone 4 mg/actuation nasal spray (NARCAN) Use 1 spray in one nostril as needed for overdose. May repeat every 2 to 3 min in alternating nostrils until medical assistance is available hydrOXYzine HCl (ATARAX) 10 mg tablet Take 10 mg by mouth three times a day as needed for anxiety. empagliflozin (JARDIANCE) 25 mg tablet Take 1 tablet by mouth daily with breakfast. magnesium oxide (MAG-OX) 400 mg (241.3 mg magnesium) tablet Take 1 tablet by mouth three times a day. simvastatin (ZOCOR) 40 mg tablet Take 1 tablet by mouth daily at bedtime. busPIRone HCl 30 mg tablet Take 1 tablet by mouth two times a day. venlafaxine ER (EFFEXOR XR) 75 mg 24 hr capsule Take 1 capsule by mouth once daily. amitriptyline (ELAVIL) 100 mg tablet Take 1 tablet by mouth daily at bedtime. propranolol (INDERAL) 40 mg tablet Take 1 tablet by mouth two times a day. topiramate (TOPAMAX) 50 mg tablet Take 1 tablet by mouth two times a day. polyethylene glycol 3350 17 gram/dose powder Take 17 g by mouth once daily. metFORMIN (GLUCOPHAGE) 1,000 mg tablet Take 1 tablet by mouth two times a day with meals. ZINC ORAL Take 50 mg by mouth once daily. cholecalciferol, vitamin D3, (VITAMIN D3 ORAL) Take 1 tablet by mouth once daily. blood-glucose meter,mobile dev (iPeen BLOOD GLUCOSE MONITOR) lyn albuterol HFA (PROAIR HFA) 90 mcg/actuation inhaler Inhale 2 Puffs as instructed every 4 hours as needed. omega-3 fatty acids (FISH OIL CONCENTRATE) 1,000 mg cap Take 1,000 mg by mouth once daily. multivit-minerals/ferrous fum (MULTI VITAMIN ORAL) Take 1 tablet by mouth once daily. TIZANIDINE HCL (ZANAFLEX ORAL) Take by mouth two times a day as needed. No current facility-administered medications for this visit. ALLERGIES ALLERGIES Allergen Reactions Avelox [Moxifloxaci* Rash Doxy [Doxycycline] GI Upset Morphine Rash Penicillins Other: See Comments Mother does not recall what the reaction was and was told that she cannot take it Prozac [Fluoxetine * Other: See Comments Mother had side effects from this PHYSICAL EXAM: Limited by virtual nature of the visit. LABS: Serum tumor markers as above. Recent Labs 02/04/25 1232 11/18/24 1034 03/15/24 0909 02/21/22 0809 08/17/21 0817 02/04/20 1041 11/08/19 0830 NA 141 141 140 < > 141 140 141 K 3.7 3.9 4.0 < > 3.7 4.2 4.0 CHLOR 102 104 104 < > 105 101 102 CO2 29 24 26 < > 25 27 26 BUN 16 10 14 < > 14 5* 15 CREAT 0.90 0.90 1.06* < > 0.95 0.75 0.74 GLUC 133* 116* 141* < > 111* 117* 95 ANION 10 13 10 < > 11 12 13 EGFRAA -- -- -- -- >60 >60 >60 EGFROTH 81 82 67 < > >60 >60 >60 < > = values in this interval not displayed. Recent Labs 02/04/25 1232 11/18/24 1034 03/15/24 0909 CA 9.8 9.8 9.3 Recent Labs 02/04/25 1232 P 3.4 Recent Labs 11/18/24 1034 03/15/24 0909 02/26/24 0857 MG 1.5* 1.6* 1.6* Recent Labs 02/04/25 1232 11/18/24 1034 03/15/24 0909 ALB 4.3 4.3 4.0 Hemoglobin (g/dL) Date Value 02/04/2025 13.3 08/17/2021 12.9 Hematocrit (%) Date Value 02/04/2025 41.2 08/17/2021 38.7 WBC (k/uL) Date Value 02/04/2025 11.16 08/17/2021 9.56 Platelet Count (k/uL) Date Value 02/04/2025 276 08/17/2021 253 IMAGING: No imaging studies available for review only reports as summarized below: PUS 12/31/2023: IMPRESSION: Normal sonographic appearance of the female pelvis. PUS 01/17/2025: IMPRESSION: Multilocular cyst with solid componenet, which appears to arise from the right ovary and measures up to 7.9 cm in aggregate size. Classified as O-RADS 5 CT abd/pelvis 01/17/2025: IMPRESSION: Heterogeneous lesion in the rectouterine pouch measureing up to 6.9 cm, favored to be uterine or ovarian in origin, though sigmoid colon is also in close proximity. Also a punctate 2 mm nonobstructing stone in the right kidney. No hydronephrosis ASSESSMENT/PLAN: Ana Hernandez is a 45 year old with ovarian cyst and pelvic pain. Comorbidities include: Asthma, depression, fatty liver, nephrolithiasis, PCOS, HLD, DM2 (non insulin controlled A1C 7.5 as of 03/2024), BMI 35.8, current smoker ECOG Performance status: 0 # Ovarian cyst: - Broad differential for ovarian cysts was discussed including benign, borderline and frankly malignant etiologies. -We reviewed the pelvic mass imaging in detail and reviewed radiologic findings arguing for and against malignancy. As well as her tumor markers. -Role for surgical removal vs surveillance and risks and benefits of each was discussed. We discussed that based on information available at this time there is a low risk of this cyst representing malignancy (as low as approximately 15% based on IOTA-ADNEX model) but that given her symptoms of pelvic pain and otherwise good health and performance status a minimally invasive surgery for removal yielding both diagnosis and therapeutic benefit is reasonable. - Given the appearance of her mass, my recommendation would be to proceed with removal for definitive pathologic evaluation. We discussed that not removing the mass could lead to spread of a cancer, increase in size of mass leading to abdominal pain. - Once removed, we discussed the 3 likely outcomes of frozen section and final pathology would be benign, borderline, and carcinoma. We reviewed that borderline tumors are not malignant, but require additional peritoneal and omental biopsies for staging to determine spread. We briefly discussed their risk for recurrence, mostly as borderline tumors in contralateral ovary (if not removed). We also discussed staging lymphadenectomy, omentectomy, possible open surgery in the event of a carcinoma. [ ] Given elevated tumor markers we will follow up a CT c/a/p with tentative plan for # Pelvic pain: - discussed potential for relationship to her ovarian cyst, however, given this is an acute on chronic issue we also discussed the potential that this is related to other etiologies including but not limited to scarring from her prior procedures or endometriosis - She has trialed OCPs long ago and found them unhelpful related to side effects and she is not interested in trial of any hormonal medications at this time as she does not like the effects on her mood or migraines # Menorrhagia: - reports heavy and irregular periods - sampled 12/2023 with benign appearing endometrium # Preoperative Discussion: [ ] pending CT c/a/p we will proceed with discussions for removal of pelvic mass +/- hysterectomy for her pelvic pain and menorrhagia Follow up with CT imaging. I spent a total of 20 minutes on the date of the service which included preparing to see the patient, tele-health patient care, completing clinical documentation, obtaining and/or reviewing separately obtained history, counseling and educating the patient/family/caregiver, and ordering medications, tests, or procedures. Aaron Blount MD, MS Gynecologic Oncologist documented in this encounter [facility] 02-07-2025 Hospital Discharge instructions Patient Education 02/07/2025 13:39:46 Abdominal Pain Abdominal Pain Abdominal pain is pain in the stomach or belly area. Everyone has this pain from time to time. In many cases it goes away on its own. But abdominal pain can sometimes be due to a serious problem, such as appendicitis. So it s important to know when to get help. Causes of abdominal pain There are many possible causes of abdominal pain. Common causes in adults include: Constipation, diarrhea, or gas Stomach acid flowing back up into the esophagus (acid reflux or heartburn) Severe acid reflux, called GERD (gastroesophageal reflux disease) A sore in the lining of the stomach or small intestine (peptic ulcer) Inflammation of the gallbladder, liver, or pancreas Gallstones or kidney stones Appendicitis Intestinal blockage An internal organ pushing through a muscle or other tissue (hernia) Urinary tract infections In women, menstrual cramps, fibroids, ovarian cysts, pelvic inflammatory disease, or endometriosis Inflammation or infection of the intestines, including Crohn's disease and ulcerative colitis Irritable bowel syndrome Diagnosing the cause of abdominal pain Your healthcare provider will give you a physical exam help find the cause of your pain. If needed, you will have tests. Belly pain has many possible causes. So it can be hard to find the reason for your pain. Giving details about your pain can help. Tell your provider where and when you feel the pain, and what makes it better or worse. Also let your provider know if you have other symptoms such as: Fever Tiredness Upset stomach (nausea) Vomiting Changes in bathroom habits Blood in the stool or black, tarry stool Weight loss that you can't explain (involuntary weight loss?) Also report any family history of stomach or intestinal problems, or cancers. Tell your provider about all your alcohol use and drug use. Tell your provider about all medicines you use, including herbs, vitamins, and supplements. Treating abdominal pain Some causes of pain need emergency medical treatment right away. These include appendicitis or a bowel blockage. Other problems can be treated with rest, fluids, or medicines. Your healthcare provider can give you specific instructions for treatment or self-care based on what is causing your pain. If you have vomiting or diarrhea, sip water or other clear fluids. When you are ready to eat solid foods again, start with small amounts of qazq-yt-pnglkr, low-fat foods. These include apple sauce, toast, or crackers. When to get medical care Call 911 or go to the hospital right away if you: Can t pass stool and are vomiting Are vomiting blood or have bloody diarrhea or black, tarry diarrhea Have chest, neck, or shoulder pain Feel like you might pass out Have pain in your shoulder blades with nausea Have sudden, severe belly pain Have new, severe pain unlike any you have felt before Have a belly that is rigid, hard, and hurts to touch Call your healthcare provider if you have: Pain for more than 5 days Bloating for more than 2 days Diarrhea for more than 5 days A fever of 100.4 F (38 C) or higher, or as directed by your healthcare provider Pain that gets worse Weight loss for no reason Continued lack of appetite Blood in your stool How to prevent abdominal pain Here are some tips to help prevent abdominal pain: Eat smaller amounts of food at each meal. Don't eat greasy, fried, or other high-fat foods. Don't eat foods that give you gas. Exercise regularly. Drink plenty of fluids. To help prevent GERD symptoms: Quit smoking. Reduce alcohol and foods that increase stomach acid. Don't use aspirin or qfat-jiv-boeinyf pain and fever medicines, if possible. This includes nonsteroidal anti-inflammatory drugs (NSAIDs). Lose excess weight. Finish eating at least 2 hours before you go to bed or lie down. Raise the head of your bed. 2447-4585 [employer]. [address] [place] [address], [place] [address]. All rights reserved. This information is not intended as a substitute for professional medical care. Always follow your healthcare professional's instructions. Follow Up Care 02/07/2025 10:37:42 With:please keep your appointment with your oncologist today Address:Unknown When:2-4 days With:Go to emergency room if symptoms worsen Address:Unknown When:2-4 days With:Albert FERRER Address: [facility] [address] [facility] [address] [place] [address]- When:2-4 days [facility] 02-07-2025 Note Discharge Instructions Thank you for allowing [facility] to assist you with your healthcare needs. The following is important discharge information regarding your hospital visit. Diagnosis from Today's Visit Abdominal pain Ovarian mass, right What to Do Next Instructions from Your Care Team Please follow-up with your oncologist today as already scheduled. If symptoms acutely worsen please return to the emergency department for further medical evaluation and management. I also prescribed you Fleet enemas which can also be purchased eduk-bks-bchrage for your constipation symptoms, discuss your constipation as well as your acute episodes of pain with your oncologist today. No qualifying data available. Post Acute Orders No qualifying data available. You Need to Schedule the Following Appointments Follow Up with please keep your appointment with your oncologist today When:Within 2-4 days Follow Up with Go to emergency room if symptoms worsen When:Within 2-4 days Follow Up with Albert FERRER When:Within 2-4 days Where:[facility] [address] [facility] [address] [place], [place] [id number]- Allergies Avelox Rash doxycycline Nausea penicillin Unknown Medications Please ask your primary doctor or pharmacist before taking any other medication not listed, including over the counter drugs, herbal medications, vitamins and or supplements as they may interact with your home medications. What How Much When Instructions Last Dose New sodium biphosphate-sodium phosphate (Fleet Enema 19 g-7 g/ 118 mL rectal enema) 1 Each in the rectum Once a day as needed for as needed for constipation Printed Prescription Unchanged amitriptyline (amitriptyline 50 mg oral tablet) take 1 to 2 tablets by mouth at bedtime Unchanged busPIRone (busPIRone 30 mg oral tablet) take 1 tablet by mouth twice a day Unchanged celecoxib (celecoxib 200 mg oral capsule) take 1 capsule by mouth once daily with food Unchanged metFORMIN (metFORMIN 850 mg oral tablet) 1 tab(s) by mouth Two (2) times a day Unchanged polyethylene glycol 3350 (MiraLax) 17 gram(s) by mouth Every day as needed for Constipation Unchanged propranolol 40 Milligram Two (2) times a day Unchanged simvastatin (simvastatin 40 mg oral tablet) take 1 tablet by mouth at bedtime Unchanged tiZANidine (tiZANidine 4 mg oral tablet) take 1 tablet by mouth twice a day if needed for muscle spasm Please take this list to your next doctor s visit. Bring all medications you take, including over the counter medications, herbals and other supplements with you to your doctor s visit. Patients and families are reminded to discard old lists and to update any records with all medication providers or retail pharmacies. Medication Leaflets sodium biphosphate and sodium phosphate (rectal) (OK jacob um bye FOS fate and OK jacob um FOS fate) Disposable Enema, Fleet Enema What is the most important information I should know about rectal sodium biphosphate and sodium phosphate? You should not use this medicine without a doctor's advice if you have kidney disease, heart problems, or constipation with stomach cramps, nausea, or vomiting. Using too much of this medicine can cause rare but life-threatening side effects on your kidneys and heart. What is rectal sodium biphosphate and sodium phosphate? Sodium biphosphate and sodium phosphate are forms of phosphorus. Sodium biphosphate and sodium phosphate rectal is a combination medicine used in adults and children to treat constipation and to clean the bowel before colon surgery, x-rays, or endoscopy examinations. Sodium biphosphate and sodium phosphate may also be used for purposes not listed in this medication guide. What should I discuss with my healthcare provider before using rectal sodium biphosphate and sodium phosphate? You should not use this medicine without a doctor's advice if you have: kidney disease; heart problems; or constipation with stomach cramps, nausea, or vomiting. Ask a doctor or pharmacist if this medicine is safe to use if: you've had a sudden change in bowel habits during the past 2 weeks or longer; you've used any laxative within the past 7 days; you are on a low-salt diet; or you are 55 or older. Ask a doctor before using this medicine if you are or . Never use an adult-strength enema in a child younger than 12 years old. Do not use this medicine in a child younger than 2 years old. How should I use rectal sodium biphosphate and sodium phosphate? Using too much of this medicine can cause rare but life-threatening side effects on your kidneys and heart. Use exactly as directed on the label, or as prescribed by your doctor. Do not take the rectal enema by mouth. It is for use only in your rectum. When using this medicine in a child 2 to 11 years old, use only a formula that is specially made for children. Read and carefully follow any Instructions for Use provided with your medicine. Ask your doctor or pharmacist if you do not understand these instructions. Sodium biphosphate and sodium phosphate rectal should cause you to have a bowel movement within 1 to 5 minutes. Do not use more than 1 enema in any 24-hour period. If you do not get any results within 30 minutes after using this medicine, call your doctor before using another dose. Do not use this medicine for longer than 3 days without medical advice. Store at room temperature away from moisture and heat. Each disposable enema is for one use only. What happens if I miss a dose? sodium biphosphate and sodium phosphate does not have a daily dosing schedule. Do not use more than 1 enema in any 24-hour period. Call your doctor if your symptoms do not improve after using this medicine. What happens if I overdose? Seek emergency medical attention or call the Poison Help line at , especially if anyone has accidentally swallowed the medicine. What should I avoid while taking rectal sodium biphosphate and sodium phosphate? Avoid using any other laxatives with this medicine, unless your doctor tells you to. What are the possible side effects of rectal sodium biphosphate and sodium phosphate? Get emergency medical help if you have signs of an allergic reaction: hives; difficult breathing; swelling of your face, lips, tongue, or throat. Stop using the medicine and call your doctor at once if you have: no bowel movement within 30 minutes after use; rectal bleeding or bright red bowel movements; or dehydration symptoms--dizziness, vomiting, thirst, little or no urinating. Common side effects may include: rectal discomfort. This is not a complete list of side effects and others may occur. Call your doctor for medical advice about side effects. You may report side effects to FDA at 8-264-KUK-5306. What other drugs will affect rectal sodium biphosphate and sodium phosphate? Other drugs may affect sodium biphosphate and sodium phosphate, including prescription and ofoa-guk-ylcbclq medicines, vitamins, and herbal products. Tell your doctor about all your current medicines and any medicine you start or stop using. Where can I get more information? Your pharmacist can provide more information about sodium biphosphate and sodium phosphate. Remember, keep this and all other medicines out of the reach of children, never share your medicines with others, and use this medication only for the indication prescribed. Every effort has been made to ensure that the information provided by [employer]') is accurate, up-to-date, and complete, but no guarantee is made to that effect. Drug information contained herein may be time sensitive. [employer] information has been compiled for use by healthcare practitioners and consumers in the [place] and therefore [employer] does not warrant that uses outside of the [place] are appropriate, unless specifically indicated otherwise. [employer] drug information does not endorse drugs, diagnose patients or recommend therapy. [employer] drug information is an informational resource designed to assist licensed healthcare practitioners in caring for their patients and/or to serve consumers viewing this service as a supplement to, and not a substitute for, the expertise, skill, knowledge and judgment of healthcare practitioners. The absence of a warning for a given drug or drug combination in no way should be construed to indicate that the drug or drug combination is safe, effective or appropriate for any given patient. [employer] does not assume any responsibility for any aspect of healthcare administered with the aid of information [employer] provides. The information contained herein is not intended to cover all possible uses, directions, precautions, warnings, drug interactions, allergic reactions, or adverse effects. If you have questions about the drugs you are taking, check with your doctor, nurse or pharmacist. Copyright 4783-2298 [employer]. Version: 3.01. Revision Date: 02/15/2020. Education Materials Abdominal Pain Abdominal pain is pain in the stomach or belly area. Everyone has this pain from time to time. In many cases it goes away on its own. But abdominal pain can sometimes be due to a serious problem, such as appendicitis. So it s important to know when to get help. Causes of abdominal pain There are many possible causes of abdominal pain. Common causes in adults include: Constipation, diarrhea, or gas Stomach acid flowing back up into the esophagus (acid reflux or heartburn) Severe acid reflux, called GERD (gastroesophageal reflux disease) A sore in the lining of the stomach or small intestine (peptic ulcer) Inflammation of the gallbladder, liver, or pancreas Gallstones or kidney stones Appendicitis Intestinal blockage An internal organ pushing through a muscle or other tissue (hernia) Urinary tract infections In women, menstrual cramps, fibroids, ovarian cysts, pelvic inflammatory disease, or endometriosis Inflammation or infection of the intestines, including Crohn's disease and ulcerative colitis Irritable bowel syndrome Diagnosing the cause of abdominal pain Your healthcare provider will give you a physical exam help find the cause of your pain. If needed, you will have tests. Belly pain has many possible causes. So it can be hard to find the reason for your pain. Giving details about your pain can help. Tell your provider where and when you feel the pain, and what makes it better or worse. Also let your provider know if you have other symptoms such as: Fever Tiredness Upset stomach (nausea) Vomiting Changes in bathroom habits Blood in the stool or black, tarry stool Weight loss that you can't explain (involuntary weight loss?) Also report any family history of stomach or intestinal problems, or cancers. Tell your provider about all your alcohol use and drug use. Tell your provider about all medicines you use, including herbs, vitamins, and supplements. Treating abdominal pain Some causes of pain need emergency medical treatment right away. These include appendicitis or a bowel blockage. Other problems can be treated with rest, fluids, or medicines. Your healthcare provider can give you specific instructions for treatment or self-care based on what is causing your pain. If you have vomiting or diarrhea, sip water or other clear fluids. When you are ready to eat solid foods again, start with small amounts of uxvn-oo-fgdgfn, low-fat foods. These include apple sauce, toast, or crackers. When to get medical care Call 911 or go to the hospital right away if you: Can t pass stool and are vomiting Are vomiting blood or have bloody diarrhea or black, tarry diarrhea Have chest, neck, or shoulder pain Feel like you might pass out Have pain in your shoulder blades with nausea Have sudden, severe belly pain Have new, severe pain unlike any you have felt before Have a belly that is rigid, hard, and hurts to touch Call your healthcare provider if you have: Pain for more than 5 days Bloating for more than 2 days Diarrhea for more than 5 days A fever of 100.4 F (38 C) or higher, or as directed by your healthcare provider Pain that gets worse Weight loss for no reason Continued lack of appetite Blood in your stool How to prevent abdominal pain Here are some tips to help prevent abdominal pain: Eat smaller amounts of food at each meal. Don't eat greasy, fried, or other high-fat foods. Don't eat foods that give you gas. Exercise regularly. Drink plenty of fluids. To help prevent GERD symptoms: Quit smoking. Reduce alcohol and foods that increase stomach acid. Don't use aspirin or kdzq-zoh-qobvtqv pain and fever medicines, if possible. This includes nonsteroidal anti-inflammatory drugs (NSAIDs). Lose excess weight. Finish eating at least 2 hours before you go to bed or lie down. Raise the head of your bed. 9151-0082 [employer]. [address] [place] [address]. All rights reserved. This information is not intended as a substitute for professional medical care. Always follow your healthcare professional's instructions. Additional Information VACCINATE! IT SAVES LIVES! Members of the community who have not yet received the COVID-19 vaccine and would like to receive it can visit one of [facility] vaccine clinics. There are many vaccine clinic locations within the [facility]. For locations and available times, please visit [email or web address] It is important to note that some COVID mobile vaccine clinics are held outdoors and may be canceled in rainy or stormy conditions. To learn more about pediatric vaccinations (ages 5-11), we invite you to visit the [facility] webpage. [email or web address] To learn more about the COVID-19 vaccine, we invite you to visit the CDC website for a list of frequently asked questions. https://www.cdc.gov/coronavirus/ 19-ncov/vaccines/faq.html [facility] Patient Portal Access Instructions: Stay connected with your healthcare team and access your personal medical information anytime with the [facility] Patient Portal. If you would like a full copy of your medical records please contact the [facility] Medical Records Department Friday through Friday between 8a.m. and 4:30p.m. Please follow the directions below to access the portal: 1.Access the email account you provided upon registration to the hospital.2.Look for an invitation email from [facility].3.Open the email and access the invitation link: Accept Invitation to [facility].Fill in the required roberson to create your account. Sign into [email or web address] with your username and password that you created in the above steps to stay up to date. You can then view a summary of results, a summary of your visits, and the ability to download your summaries to your computer or send the information securely to a physician. Remember that your healthcare information is confidential, so carefully consider who you will allow to register on the [facility] Patient Portal for access to your information. You can also access the [facility] Patient Portal on the [employer] shakir. Simply click on Health Records under Health Data and then click on the [facility] logo. HOW TO SAFELY DISPOSE OF PRESCRIPTION MEDICATIONS Please use one of the following methods to safely dispose of your unused medications. 1.Use a drug disposal kit: the drug disposal pouch allows you to safely discard your old and unused drugs. Ask your nurse to give you one when you are discharged.2.Visit a local take-back location: Many local pharmacies and police departments have programs that collect old and unwanted prescription drugs. Call your local pharmacy or go to http://AppSlingr.Luminoso/4P5Il3w to find one close to you.3.Make use of household items: Use cat litter or old coffee grounds to dispose medications if other options are not available. Mix your drugs with these household products, seal them in an airtight container and throw it into the garbage. Call [facility]: [phone] to be sure your drugs can be disposed of in this way. Some medicines may require a different approach.4.Never flush your medications down the toilet. IF YOU HAVE BEEN PRESCRIBED AN OPIOIDS FOR PAIN If you have been prescribed an opioid (such as hydrocodone, oxycodone or morphine), it is critical to understand the possible side effects and risks of opioid pain medications. Even when taken as directed, opioids can have several side effects including: Tolerance, meaning you might need to take more of a medication for the same pain relief. Nausea, vomiting and/or constipation. Sleepiness, dizziness, dry mouth, confusion, depression or itching. Physical dependence, meaning you have withdrawal symptoms when a medication is stopped ? this can develop within a few days. KNOW YOUR RESPONSIBILITIES It is important to know exactly how much and how often to take the opioid pain medications you are prescribed. Never take opioids in higher amounts or more often than prescribed. Do not combine opioids with alcohol or other drugs that cause drowsiness, such as benzodiazepines, also known as benzos, including diazepam and alprazolam, muscle relaxants or sleep aids. Never sell or share prescription opioids. This is illegal. Store opioids in a secure place and out of reach of others (including children, family, friends and visitors). The last page(s) of this document has been signed and retained as a CHART COPY Signatures Patient Education Materials Abdominal Pain Medication Leaflets sodium biphosphate and sodium phosphate (rectal) My discharge plan and instructions have been reviewed and explained to me and I,ANA HERNANDEZ understand my current condition and have read and understand these discharge instructions. I have received a written copy of the plan/instructions. If I have questions, I am aware that I should contact my doctor. Patient/Hospital Cook Signature: Date/Time: Relationship to Patient: ___ Witness Name/Signature: Date/Time: [facility] 01-30-2025 Radiology Diagnostic study note [facility] Imaging Services [address] [place], [place] [address] Pelvic w/ Transvaginal MR#: [id number] Acct: [id number] Name: ANA HERNANDEZ Rep #: [id number] : 1980 F 45 From: Senthil Dick MD PCP: EVY Jefferson Status: REG ER Study:Pelvic w/ Transvaginal Date of Exam: 01/30/25 Exam# [id number] Ordering Dr: Mariel Orellana PROCEDURE: PELVIC W/ TRANSVAGINAL 01/30/2025 REASON FOR EXAM: RLQ PAIN, TECHNIQUE: Transabdominal pelvic ultrasound COMPARISON: 01/17/2025 CT. FINDINGS: Uterus measures 9.1 x 5.8 x 4.0 cm. No uterine fibroids. Anteverted uterus. Endometrium measures 2 mm. Nabothian cysts are present. Right ovary measures 9.2 x 4.2 x 5.8 cm with preserved vascular flow. Right ovarian 4.2 x 3.5 x 4.1 cm cystic mass cystic region with an associated solid component and an immediately adjacent 5.8 x 4.5 x 3.9 cm bilobed region with a large solid component and a color score of 4. Left ovary measures 3.6 x 2.9 x 1.7 cm with preserved vascular flow. US/Pelvic w/ Transvaginal IMPRESSION: Right ovarian O rads 5 lesion: Needs referral to gynecological oncologists. Reading Location: [id number] CC: SCHOOL AGE TEACHER Myranda Dallas; WILBERTO Baron ~ Payroll Coordinator: Signed [facility] 01-18-2025 Note HNO ID: [id number] Author: MYRIAM RIVERA MD Service: ? Author Type: Physician Type: Progress Notes Filed: 01/18/2025 13:13 Note Text: Ana Hernandez is a 45 year old female who presents for problem visit pelvic mass HPI: Seen in ED yesterday with RLQ pain. 7.9 cm ovarian mass Birads 5 on US. Previous US from one year ago with a normal ovary. Still in pain. Did take pain meds this am. No bleeding. Does have nausea and vomiting and early satiety. Was going to have a hysterectomy ;ast year for bleeding however there was too much scar tissue from previous hysterectomy on laparoscopy. She was referred to [facility]. 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 LFTs elevated in past, but 06/09 - normal GOITER NOS 09/28/2006 TSH normal Lumbago 05/23/2006 Mild intermittent asthma without complication (HCC) 05/23/2006 Since age 11. No medication. Last attack > 10 years OBESITY NOS 05/23/2006 Peripheral autonomic neuropathy due to diabetes mellitus (HCC) PMH - PAST MEDICAL HISTORY OF kidney stones Polycystic ovaries 05/23/2006 Polycystic ovaries 05/23/2006 Snoring Sprain of lumbar region 08/04/2014 Tobacco use disorder 06/05/2009 Type II or unspecified type diabetes mellitus without mention of complication, not stated as uncontrolled 06/05/2009 Unspecified asthma(493.90) PAST SURGICAL HISTORY Procedure Laterality Date DELIVERY ONLY , low cervical COLONOSCOPY 08/28/2018 hemorrhoid banding L'SCOPE DX W/WO BRUSHINGS/WASHINGS 04/15/2024 LAPAROSCOPY SURG CHOLECYSTECTOMY Cholecystectomy, lap MYRINGOTOMY ASPIRAND/EUSTACHIAN TUBE NFLTJ ANES Myringotomy/tubes PAST SURGICAL HISTORY OF stents in ureter for kidney stones PAST SURGICAL HISTORY OF 08/04/2014 lumbar pain injections. TONSILLECTOMY PRIMARY/SECONDARY Tonsillectomy FAMILY HISTORY Problem Relation Age of Onset Diabetes Mother Diabetes Father Colon Cancer Father 61 Diabetes Maternal Grandmother other (Parkinson's) Maternal Grandmother Stroke Maternal Grandfather Diabetes Maternal Grandfather Colon Cancer Paternal Grandfather Social History Tobacco Use Smoking status: Former Current packs/day: 0.00 Average packs/day: 0.3 packs/day for 3.0 years (0.9 ttl pk-yrs) Types: Cigarettes Start date: 09/10/2010 Quit date: 09/10/2013 Years since quittin.3 Smokeless tobacco: Never Tobacco comments: uses E cigs Vaping Use Vaping status: current everyday user Substances: Nicotine, Flavoring Devices: RefThyme Labsble tank Substance Use Topics Alcohol use: No Drug use: No Current Outpatient Medications Medication Sig hydrOXYzine HCl (ATARAX) 10 mg tablet Take 10 mg by mouth three times a day as needed for anxiety. empagliflozin (JARDIANCE) 25 mg tablet Take 1 tablet by mouth daily with breakfast. magnesium oxide (MAG-OX) 400 mg (241.3 mg magnesium) tablet Take 1 tablet by mouth three times a day. simvastatin (ZOCOR) 40 mg tablet Take 1 tablet by mouth daily at bedtime. busPIRone HCl 30 mg tablet Take 1 tablet by mouth two times a day. venlafaxine ER (EFFEXOR XR) 75 mg 24 hr capsule Take 1 capsule by mouth once daily. amitriptyline (ELAVIL) 100 mg tablet Take 1 tablet by mouth daily at bedtime. propranolol (INDERAL) 40 mg tablet Take 1 tablet by mouth two times a day. topiramate (TOPAMAX) 50 mg tablet Take 1 tablet by mouth two times a day. polyethylene glycol 3350 17 gram/dose powder Take 17 g by mouth once daily. metFORMIN (GLUCOPHAGE) 1,000 mg tablet Take 1 tablet by mouth two times a day with meals. ZINC ORAL Take 50 mg by mouth once daily. cholecalciferol, vitamin D3, (VITAMIN D3 ORAL) Take 1 tablet by mouth once daily. blood-glucose meter,mobile dev (HOLLY BLOOD GLUCOSE MONITOR) lyn albuterol HFA (PROAIR HFA) 90 mcg/actuation inhaler Inhale 2 Puffs as instructed every 4 hours as needed. omega-3 fatty acids (FISH OIL CONCENTRATE) 1,000 mg cap Take 1,000 mg by mouth once daily. HYDROcodone-acetaminophen (NORCO) 5-325 mg per tablet Take 5-325 tablets by mouth twice daily as needed. multivit-minerals/ferrous fum (MULTI VITAMIN ORAL) Take 1 tablet by mouth once daily. TIZANIDINE HCL (ZANAFLE (more content not included)... [facility] 01-18-2025 Telephone encounter Note Appt scheduled with PRISCILLA today at 12:50pm. Edgar Mercado RN [facility] 01-18-2025 Miscellaneous Notes Appt scheduled with PRISCILLA today at 12:50pm. Edgar Mercado RN E-mail sent to OB nursing staff by Dr. Luna 01/17/25 at 10:49pm: Patient of ours Ana Hernandez [facility] 82 presented to the ER with flank pain. CT and pelvic US show ORADS 5 ovarian cyst. Needs follow up this week deborah and possible referral to kitchen bath designer onc. CLAUDIA Trimble documented in this encounter [facility] 01-18-2025 Telephone encounter Note E-mail sent to OB nursing staff by Dr. Luna 01/17/25 at 10:49pm: Patient of ours Ana Hernandez [facility] 82 presented to the ER with flank pain. CT and pelvic US show ORADS 5 ovarian cyst. Needs follow up this week deborah and possible referral to kitchen bath designer onc. CLAUDIA Trimble [facility] 01-17-2025 Radiology Diagnostic study note [facility] Imaging Services [address] [place] [address] Transvaginal Non- MR#: [id number] Acct: [id number] Name: ANA HERNANDEZ Rep #: [id number] : 1980 F 45 From: June Back MD PCP: Myranda Dallas, SCHOOL AGE TEACHER Status: REG ER Study:Transvaginal Non- Date of Exam: 01/17/25 Exam# [id number] Ordering Dr: Jostin Stone DO PROCEDURE: TRANSVAGINAL NON- 01/17/2025 REASON FOR EXAM: PELVIC MASS TECHNIQUE: Transabdominal and transvaginal pelvic ultrasound. Color and spectral doppler analysis of the ovaries. COMPARISON: CT abdomen and pelvis 01/17/2025 FINDINGS: Measurements: Uterus: 7.2 x 4.3 x 5.1 cm for volume of 82.0 mL Endometrial Thickness: 0.9 cm Right Ovary: 7.9 x 3.7 x 7.2 cm for volume of 109.8 mL Left Ovary: 3.2 x 1.9 x 2.4 cm for volume of 7.8 mL Uterus: Anteverted. Normal contour and myometrial echotexture. Endometrium: Normal echotexture. Right ovary: There is a multilocular cystic lesion which appears to arise from the right ovary. There is a cystic component containing low lying internal echoes measuring 3.9 x 3.3 cm, with a solid papillary projection measuring 1.6 cm and containing internal color flow (color score 3-4), without significant posterior shadowing of the solid component. On the cinematic imaging there are additional papillary projections noted within the cystic spaces. Left ovary: Normal size and echotexture. Arterial and venous waveforms are identified within both ovaries. Cul-de-sac: No free intraperitoneal fluid identified. US/Transvaginal Non- IMPRESSION: Multilocular cyst with solid components, which appears to arise from the right ovary and measures up to 7.9 cm in aggregate size. Findings are consistent with O-RADS 5 classification (High Risk). Recommend Wooden Boat Builder-Oncology referral. Yellow Alert: High Risk ovarian mass The critical information above was relayed directly by me by telephone to Jostin Stone on 01/17/2025 at 10:18 pm with readback verification. Reading Location: JAYME CC: EVY Dallas; Dr. Jostin Stone DO ~ Payroll Coordinator: Signed [facility] 01-17-2025 Radiology Diagnostic study note [facility] Imaging Services [address] [place] [address] Abdomen/Pelvis without Cont MR#: [id number] Acct: [id number] Name: ANA HERNANDEZ Rep #: [id number] : 1980 F 45 From: June Back MD PCP: EVY Jefferson Status: REG ER Study:Abdomen/Pelvis without Cont Date of Exa m: 01/17/25 Exam# [id number] Ordering Dr: Jostin Stone DO PROCEDURE: ABDOMEN/PELVIS WITHOUT CONT 01/17/2025 REASON FOR EXAM: PAIN TECHNIQUE: Abdomen and pelvis CT without intravenous contrast. Noncontrast technique limits evaluation of the abdominal and pelvic viscera. Coronal and Sagittal reconstruction series were provided. One or more dose reduction techniques were used (e.g., Automated exposure control, adjustment of the mA and/or kV according to patient size, use of iterative reconstruction technique). PATIENT PREPARATION: Per protocol CTDIvol: 21.0 mGy DLP: 1083 mGy-cm COMPARISON: Abdominal radiographs 04/20/2024 FINDINGS: Lung bases: Unremarkable Liver: Normal size. No obvious mass. Gallbladder: Not visualized Spleen: Normal size. Pancreas: Normal size. No surrounding inflammation. Adrenals: Unremarkable Kidneys: Nonobstructing stone measuring 2 mm in the right kidney. No hydronephrosis. Bladder: Unremarkable. Reproductive Organs: Heterogeneous lesion in the right posterior pelvis, posterior to the lower uterine segment and cervix, measuring 6.9 x 6.5 by 3.7 cm. Bowel: No obstruction or inflammation. Normal appendix. Lymph nodes: No lymphadenopathy. Vasculature: Unremarkable Bones: Unremarkable CT/Abdomen/Pelvis without Cont IMPRESSION: 1. Heterogeneous lesion in the rectouterine pouch measuring up to 6.9 cm, favored to be uterine or ovarian in origin, though the sigmoid colon is also in close proximity. Recommend pelvic ultrasound for further evaluation. 2. Punctate 2 mm nonobstructing stone in the right kidney. No hydronephrosis. Reading Location: [id number] CC: SCHOOL AGE TEACHER Myranda Dallas; Dr. Jostin Stone DO ~ Payroll Coordinator: Signed [facility] 01-17-2025 Note HNO ID: [id number] Author: DAVID ALBA APRN.BIOINFORMATICS COMPUTER SCIENTIST Service: ? Author Type: Nurse Practitioner Type: Progress Notes Filed: 01/17/2025 18:19 Note Text: Subjective HPI Nontoxic-appearing 45-year-old female presents urgent care chief plaint abdominal pain. Duration of symptoms 9 days. Associated symptoms worsening left lower abdominal pain. States feels like she has a kidney stone. OTC medications none. Vomiting none. Fevers none. States she is feeling more weak. Rates pain 10 out of 10. Past medical history prescription medications allergies reviewed. .Patient presents with: Back Pain: lower right side back and lower right sided abdominal pain x 9 days PAST MEDICAL HISTORY Diagnosis Date ABN GLUCOSE-ANTEPARTUM 05/23/2006 ASTHMA UNSPECIFIED 05/23/2006 Calculus of ureter 05/23/2006 Callus of foot Callus of foot COMMON MIGRAINE W/O MENTN INTRACT 05/23/2006 DEPRESSIVE DISORDER NEC 08/20/200606/09 -Stable, no meds Family history of diabetes mellitus 05/23/2006 Mother, Father, Maternal Grandparents FAMILY HX DIABETES MELLITUS 05/23/2006 Mother, Father, Maternal Grandparents Fatty liver 06/05/2009 CT Scan 01/06, showed diffuse fatty liver. LFTs elevated in past, but 06/09 - normal GOITER NOS 09/28/2006 TSH normal Lumbago 05/23/2006 Mild intermittent asthma without complication (HCC) 05/23/2006 Since age 11. No medication. Last attack > 10 years OBESITY NOS 05/23/2006 Peripheral autonomic neuropathy due to diabetes mellitus (HCC) PMH - PAST MEDICAL HISTORY OF kidney stones Polycystic ovaries 05/23/2006 Polycystic ovaries 05/23/2006 Snoring Sprain of lumbar region 08/04/2014 Tobacco use disorder 06/05/2009 Type II or unspecified type diabetes mellitus without mention of complication, not stated as uncontrolled 06/05/2009 Unspecified asthma(493.90) PAST SURGICAL HISTORY Procedure Laterality Date DELIVERY ONLY , low cervical COLONOSCOPY 08/28/2018 hemorrhoid banding L'SCOPE DX W/WO BRUSHINGS/WASHINGS 04/15/2024 LAPAROSCOPY SURG CHOLECYSTECTOMY Cholecystectomy, lap MYRINGOTOMY ASPIRAND/EUSTACHIAN TUBE NFLTJ ANES Myringotomy/tubes PAST SURGICAL HISTORY OF stents in ureter for kidney stones PAST SURGICAL HISTORY OF 08/04/2014 lumbar pain injections. TONSILLECTOMY PRIMARY/SECONDARY Tonsillectomy ALLERGIES Avelox [Moxifloxacin Hcl], Doxy [Doxycycline], Penicillins, and Prozac [Fluoxetine Hcl] MEDICATIONS hydrOXYzine HCl (ATARAX) 10 mg tablet Take 10 mg by mouth three times a day as needed for anxiety. empagliflozin (JARDIANCE) 25 mg tablet Take 1 tablet by mouth daily with breakfast. magnesium oxide (MAG-OX) 400 mg (241.3 mg magnesium) tablet Take 1 tablet by mouth three times a day. simvastatin (ZOCOR) 40 mg tablet Take 1 tablet by mouth daily at bedtime. busPIRone HCl 30 mg tablet Take 1 tablet by mouth two times a day. venlafaxine ER (EFFEXOR XR) 75 mg 24 hr capsule Take 1 capsule by mouth once daily. amitriptyline (ELAVIL) 100 mg tablet Take 1 tablet by mouth daily at bedtime. propranolol (INDERAL) 40 mg tablet Take 1 tablet by mouth two times a day. topiramate (TOPAMAX) 50 mg tablet Take 1 tablet by mouth two times a day. polyethylene glycol 3350 17 gram/dose powder Take 17 g by mouth once daily. metFORMIN (GLUCOPHAGE) 1,000 mg tablet Take 1 tablet by mouth two times a day with meals. ZINC ORAL Take 50 mg by mouth once daily. cholecalciferol, vitamin D3, (VITAMIN D3 ORAL) Take 1 tablet by mouth once daily. blood-glucose meter,mobile dev ([employer] BLOOD GLUCOSE MONITOR) lyn albuterol HFA (PROAIR HFA) 90 mcg/actuation inhaler Inhale 2 Puffs as instructed every 4 hours as needed. omega-3 fatty acids (FISH OIL CONCENTRATE) 1,000 mg cap Take 1,000 mg by mouth once daily. HYDROcodone-acetaminophen (NORCO) 5-325 mg per tablet Take 5-325 tablets by mouth twice daily as needed. multivit-minerals/ferrous fum (MULTI VITAMIN ORAL) Take 1 tablet by mouth once daily. TIZANIDINE HCL (ZANAFLEX ORAL) Take by mouth two times a day as needed. FAMILY HISTORY Problem Relation Age of Onset Diabetes Mother Diabetes Father Colon Cancer Father 61 Diabetes Maternal Grandmother other (Parkinson's) Maternal Grandmother Stroke Maternal Grandfather Diabetes Maternal Grandfather Colon Cancer Paternal Grandfather Social History Tobacco Use Smoking status: Former Current packs/day: 0.00 Average packs/day: 0.3 packs/day for 3.0 years (0.9 ttl pk-yrs) Types: Cigarettes Start date: 09/10/2010 Quit date: 09/10/2013 Years since quittin.3 Smokeless tobacco: Never Tobacco comments: uses E cigs Vaping Use Vaping status: current everyday user Substances: Nicotine, Flavoring Devices: Refillable tank Substance Use Topics Alcohol use: No Drug use: No BP 160/84 Pulse 78 Temp 36.1 ?C (97 ?F) Resp 16 Wt 88.6 kg (195 lb 5.2 oz) LMP 03/08/2024 (Approximate) SpO2 97% BMI 35.27 kg/m? Review (more content not included)... [facility] 01-17-2025 History of Present illness Narrative Subjective HPI Nontoxic-appearing 45-year-old female presents urgent care chief plaint abdominal pain. Duration of symptoms 9 days. Associated symptoms worsening left lower abdominal pain. States feels like she has a kidney stone. OTC medications none. Vomiting none. Fevers none. States she is feeling more weak. Rates pain 10 out of 10. Past medical history prescription medications allergies reviewed. .Patient presents with: Back Pain: lower right side back and lower right sided abdominal pain x 9 days PAST MEDICAL HISTORY Diagnosis Date ABN GLUCOSE-ANTEPARTUM 05/23/2006 ASTHMA UNSPECIFIED 05/23/2006 Calculus of ureter 05/23/2006 Callus of foot Callus of foot COMMON MIGRAINE W/O MENTN INTRACT 05/23/2006 DEPRESSIVE DISORDER NEC 08/20/200606/09 -Stable, no meds Family history of diabetes mellitus 05/23/2006 Mother, Father, Maternal Grandparents FAMILY HX DIABETES MELLITUS 05/23/2006 Mother, Father, Maternal Grandparents Fatty liver 06/05/2009 CT Scan 01/06, showed diffuse fatty liver. LFTs elevated in past, but 06/09 - normal GOITER NOS 09/28/2006 TSH normal Lumbago 05/23/2006 Mild intermittent asthma without complication (HCC) 05/23/2006 Since age 11. No medication. Last attack > 10 years OBESITY NOS 05/23/2006 Peripheral autonomic neuropathy due to diabetes mellitus (HCC) PMH - PAST MEDICAL HISTORY OF kidney stones Polycystic ovaries 05/23/2006 Polycystic ovaries 05/23/2006 Snoring Sprain of lumbar region 08/04/2014 Tobacco use disorder 06/05/2009 Type II or unspecified type diabetes mellitus without mention of complication, not stated as uncontrolled 06/05/2009 Unspecified asthma(493.90) PAST SURGICAL HISTORY Procedure Laterality Date DELIVERY ONLY , low cervical COLONOSCOPY 08/28/2018 hemorrhoid banding L'SCOPE DX W/WO BRUSHINGS/WASHINGS 04/15/2024 LAPAROSCOPY SURG CHOLECYSTECTOMY Cholecystectomy, lap MYRINGOTOMY ASPIR&/EUSTACHIAN TUBE NFLTJ ANES Myringotomy/tubes PAST SURGICAL HISTORY OF stents in ureter for kidney stones PAST SURGICAL HISTORY OF 08/04/2014 lumbar pain injections. TONSILLECTOMY PRIMARY/SECONDARY <AGE 13 Tonsillectomy ALLERGIES Avelox [Moxifloxacin Hcl], Doxy [Doxycycline], Penicillins, and Prozac [Fluoxetine Hcl] MEDICATIONS hydrOXYzine HCl (ATARAX) 10 mg tablet Take 10 mg by mouth three times a day as needed for anxiety. empagliflozin (JARDIANCE) 25 mg tablet Take 1 tablet by mouth daily with breakfast. magnesium oxide (MAG-OX) 400 mg (241.3 mg magnesium) tablet Take 1 tablet by mouth three times a day. simvastatin (ZOCOR) 40 mg tablet Take 1 tablet by mouth daily at bedtime. busPIRone HCl 30 mg tablet Take 1 tablet by mouth two times a day. venlafaxine ER (EFFEXOR XR) 75 mg 24 hr capsule Take 1 capsule by mouth once daily. amitriptyline (ELAVIL) 100 mg tablet Take 1 tablet by mouth daily at bedtime. propranolol (INDERAL) 40 mg tablet Take 1 tablet by mouth two times a day. topiramate (TOPAMAX) 50 mg tablet Take 1 tablet by mouth two times a day. polyethylene glycol 3350 17 gram/dose powder Take 17 g by mouth once daily. metFORMIN (GLUCOPHAGE) 1,000 mg tablet Take 1 tablet by mouth two times a day with meals. ZINC ORAL Take 50 mg by mouth once daily. cholecalciferol, vitamin D3, (VITAMIN D3 ORAL) Take 1 tablet by mouth once daily. blood-glucose meter,mobile dev (HOLLY BLOOD GLUCOSE MONITOR) lyn albuterol HFA (PROAIR HFA) 90 mcg/actuation inhaler Inhale 2 Puffs as instructed every 4 hours as needed. omega-3 fatty acids (FISH OIL CONCENTRATE) 1,000 mg cap Take 1,000 mg by mouth once daily. HYDROcodone-acetaminophen (NORCO) 5-325 mg per tablet Take 5-325 tablets by mouth twice daily as needed. multivit-minerals/ferrous fum (MULTI VITAMIN ORAL) Take 1 tablet by mouth once daily. TIZANIDINE HCL (ZANAFLEX ORAL) Take by mouth two times a day as needed. FAMILY HISTORY Problem Relation Age of Onset Diabetes Mother Diabetes Father Colon Cancer Father 61 Diabetes Maternal Grandmother other (Parkinson's) Maternal Grandmother Stroke Maternal Grandfather Diabetes Maternal Grandfather Colon Cancer Paternal Grandfather Social History Tobacco Use Smoking status: Former Current packs/day: 0.00 Average packs/day: 0.3 packs/day for 3.0 years (0.9 ttl pk-yrs) Types: Cigarettes Start date: 09/10/2010 Quit date: 09/10/2013 Years since quittin.3 Smokeless tobacco: Never Tobacco comments: uses E cigs Vaping Use Vaping status: current everyday user Substances: Nicotine, Flavoring Devices: 1SDK Substance Use Topics Alcohol use: No Drug use: No BP 160/84 Pulse 78 Temp 36.1 C (97 F) Resp 16 Wt 88.6 kg (195 lb 5.2 oz) LMP 03/08/2024 (Approximate) SpO2 97% BMI 35.27 kg/m Review of Systems Constitutional: Negative for chills, fever and malaise/fatigue. HENT: Negative for congestion, ear discharge, ear pain, sinus pain and sore throat. Eyes: Negative for blurred vision, pain, discharge and redness. Respiratory: Negative for cough, hemoptysis, sputum production, shortness of breath, wheezing and stridor. Cardiovascular: Negative for chest pain. Gastrointestinal: Positive for abdominal pain, nausea and vomiting. Negative for diarrhea. Genitourinary: Positive for flank pain. Musculoskeletal: Negative for myalgias. Skin: Negative for itching and rash. Neurological: Negative for dizziness and headaches. Objective Physical Exam Vitals and nursing note reviewed. Constitutional: General: She is not in acute distress. Appearance: She is not diaphoretic. HENT: Head: Jaw: No trismus. Right Ear: Hearing normal. No decreased hearing noted. No drainage, swelling or tenderness. Tympanic membrane is not perforated, erythematous or bulging. Left Ear: Hearing normal. No decreased hearing noted. No drainage, swelling or tenderness. Tympanic membrane is not perforated, erythematous or bulging. Mouth/Throat: Pharynx: Uvula midline. No uvula swelling. Tonsils: No tonsillar abscesses. Cardiovascular: Rate and Rhythm: Normal rate and regular rhythm. Pulses: Normal pulses. Pulmonary: Effort: Pulmonary effort is normal. No respiratory distress. Breath sounds: Normal breath sounds. Chest: Chest wall: No tenderness. Abdominal: General: Bowel sounds are normal. There is no distension. Palpations: Abdomen is soft. Abdomen is not rigid. Tenderness: There is abdominal tenderness. There is guarding. There is no right CVA tenderness, left CVA tenderness or rebound. Negative signs include Graff's sign and McBurney's sign. Musculoskeletal: General: No tenderness. Lymphadenopathy: Head: Right side of head: No submental, submandibular, tonsillar, preauricular, posterior auricular or occipital adenopathy. Left side of head: No submental, submandibular, tonsillar, preauricular, posterior auricular or occipital adenopathy. Cervical: Right cervical: No superficial or posterior cervical adenopathy. Left cervical: No superficial or posterior cervical adenopathy. Skin: General: Skin is warm and dry. Findings: No rash. Neurological: Mental Status: She is alert and oriented to person, place, and time. ASSESSMENT/PLAN: 1. Acute right-sided low back pain without sciatica - ICD9: 724.2, ICD10: M54.50 (primary diagnosis) - UA DIP, URINE (POC) - BACTERIAL CULTURE, URINE 2. Abdominal pain, unspecified abdominal location - ICD9: 789.00, ICD10: R10.9 Significant tenderness to palpation with palpation of left lower quadrant. Referred patient to ED for further evaluation care. Will be sent [facility] David Alba APRN.CNP documented in this encounter [facility] 12-20-2024 Instructions Myranda Dallas APRN.CNP - 12/20/2024 9:38 AM EDT 1) No change in medications 2) Labs in 3 months 3) Follow up in 6 months documented in this encounter [facility] 12-20-2024 Note HNO ID: [id number] Author: MYRANDA DALLAS APRN.CNP Service: ? Author Type: Nurse Practitioner Type: Progress Notes Filed: 12/20/2024 09:40 Note Text: This is a 44 year old female who presents today with: Patient presents with: Depression: 4 week follow up Anxiety HISTORY OF PRESENT ILLNESS: Ana Hernandez is a 44 year old female. Patient presents with: Depression: 4 week follow up Anxiety Feeling some better but not back to normal. Hydroxyzine 10 mg 3 x day for anxiety Uses 3 times a day- not make her severely sleepy but does a little. Eating ok. Sleeping- poorly- up a lot at night. Combination of pain, anxiety. Jardiance helping with frequent urination. No suicidal thoughts. Not yet scheduled with counseling center, due to cost. Seeing psychiatry DM: Reports overall feeling well. Medication side effects: No. Home sugar checks: Not often Hypoglycemic spells: No. Watching diet: Not lately. Unexpected weight loss: No. Polyuria, polydipsia: No. Vision Changes: Yes. Seeing eye doctor. Foot lesions or numbness or pain: No. PAST MEDICAL HISTORY: PAST MEDICAL HISTORY Diagnosis Date ABN GLUCOSE-ANTEPARTUM 05/23/2006 ASTHMA UNSPECIFIED 05/23/2006 Calculus of ureter 05/23/2006 Callus of foot Callus of foot COMMON MIGRAINE W/O MENTN INTRACT 05/23/2006 DEPRESSIVE DISORDER NEC 08/20/200606/09 -Stable, no meds Family history of diabetes mellitus 05/23/2006 Mother, Father, Maternal Grandparents FAMILY HX DIABETES MELLITUS 05/23/2006 Mother, Father, Maternal Grandparents Fatty liver 06/05/2009 CT Scan 01/06, showed diffuse fatty liver. LFTs elevated in past, but 06/09 - normal GOITER NOS 09/28/2006 TSH normal Lumbago 05/23/2006 Mild intermittent asthma without complication (HCC) 05/23/2006 Since age 11. No medication. Last attack > 10 years OBESITY NOS 05/23/2006 Peripheral autonomic neuropathy due to diabetes mellitus (HCC) PMH - PAST MEDICAL HISTORY OF kidney stones Polycystic ovaries 05/23/2006 Polycystic ovaries 05/23/2006 Snoring Sprain of lumbar region 08/04/2014 Tobacco use disorder 06/05/2009 Type II or unspecified type diabetes mellitus without mention of complication, not stated as uncontrolled 06/05/2009 Unspecified asthma(493.90) PAST SURGICAL HISTORY Procedure Laterality Date DELIVERY ONLY , low cervical COLONOSCOPY 08/28/2018 hemorrhoid banding L'SCOPE DX W/WO BRUSHINGS/WASHINGS 04/15/2024 LAPAROSCOPY SURG CHOLECYSTECTOMY Cholecystectomy, lap MYRINGOTOMY ASPIRAND/EUSTACHIAN TUBE NFLTJ ANES Myringotomy/tubes PAST SURGICAL HISTORY OF stents in ureter for kidney stones PAST SURGICAL HISTORY OF 08/04/2014 lumbar pain injections. TONSILLECTOMY PRIMARY/SECONDARY Tonsillectomy ALLERGIES Avelox [Moxifloxacin Hcl], Doxy [Doxycycline], Penicillins, and Prozac [Fluoxetine Hcl] MEDICATIONS Current Outpatient Medications Medication Sig hydrOXYzine HCl (ATARAX) 10 mg tablet Take 10 mg by mouth three times a day as needed for anxiety. empagliflozin (JARDIANCE) 25 mg tablet Take 1 tablet by mouth daily with breakfast. magnesium oxide (MAG-OX) 400 mg (241.3 mg magnesium) tablet Take 1 tablet by mouth three times a day. simvastatin (ZOCOR) 40 mg tablet Take 1 tablet by mouth daily at bedtime. busPIRone HCl 30 mg tablet Take 1 tablet by mouth two times a day. venlafaxine ER (EFFEXOR XR) 75 mg 24 hr capsule Take 1 capsule by mouth once daily. amitriptyline (ELAVIL) 100 mg tablet Take 1 tablet by mouth daily at bedtime. propranolol (INDERAL) 40 mg tablet Take 1 tablet by mouth two times a day. topiramate (TOPAMAX) 50 mg tablet Take 1 tablet by mouth two times a day. polyethylene glycol 3350 17 gram/dose powder Take 17 g by mouth once daily. metFORMIN (GLUCOPHAGE) 1,000 mg tablet Take 1 tablet by mouth two times a day with meals. norethindrone (AYGESTIN) 5 mg tablet Take 1 tablet by mouth once daily. ZINC ORAL Take 50 mg by mouth once daily. cholecalciferol, vitamin D3, (VITAMIN D3 ORAL) Take 1 tablet by mouth once daily. blood-glucose meter,mobile dev (HOLLY BLOOD GLUCOSE MONITOR) lyn albuterol HFA (PROAIR HFA) 90 mcg/actuation inhaler Inhale 2 Puffs as instructed every 4 hours as needed. omega-3 fatty acids (FISH OIL CONCENTRATE) 1,000 mg cap Take 1,000 mg by mouth once daily. HYDROcodone-acetaminophen (NORCO) 5-325 mg per tablet Take 5-325 tablets by mouth twice daily as needed. multivit-minerals/ferrous fum (MULTI VITAMIN ORAL) Take 1 tablet by mouth once daily. TIZANIDINE HCL (ZANAFLEX ORAL) Take by mouth two times a day as needed. No current facility-administered medications for this visit. FAMILY HISTORY Problem Relation Age of Onset Diabetes Mother Diabetes Father Colon Cancer Father 61 Diabetes Maternal Grandmother other (Parkinson's) Maternal Grandmother Stroke Maternal Grandfather Diabetes Maternal Grandfather Colon Cancer Paternal Grandfather Social History (more content not included)... [facility] 12-20-2024 History of Present illness Narrative This is a 44 year old female who presents today with: Patient presents with: Depression: 4 week follow up Anxiety HISTORY OF PRESENT ILLNESS: Ana Hernandez is a 44 year old female. Patient presents with: Depression: 4 week follow up Anxiety Feeling some better but not back to normal. Hydroxyzine 10 mg 3 x day for anxiety Uses 3 times a day- not make her severely sleepy but does a little. Eating ok. Sleeping- poorly- up a lot at night. Combination of pain, anxiety. Jardiance helping with frequent urination. No suicidal thoughts. Not yet scheduled with counseling center, due to cost. Seeing psychiatry DM: Reports overall feeling well. Medication side effects: No. Home sugar checks: Not often Hypoglycemic spells: No. Watching diet: Not lately. Unexpected weight loss: No. Polyuria, polydipsia: No. Vision Changes: Yes. Seeing eye doctor. Foot lesions or numbness or pain: No. PAST MEDICAL HISTORY: PAST MEDICAL HISTORY Diagnosis Date ABN GLUCOSE-ANTEPARTUM 05/23/2006 ASTHMA UNSPECIFIED 05/23/2006 Calculus of ureter 05/23/2006 Callus of foot Callus of foot COMMON MIGRAINE W/O MENTN INTRACT 05/23/2006 DEPRESSIVE DISORDER NEC 08/20/200606/09 -Stable, no meds Family history of diabetes mellitus 05/23/2006 Mother, Father, Maternal Grandparents FAMILY HX DIABETES MELLITUS 05/23/2006 Mother, Father, Maternal Grandparents Fatty liver 06/05/2009 CT Scan 01/06, showed diffuse fatty liver. LFTs elevated in past, but 06/09 - normal GOITER NOS 09/28/2006 TSH normal Lumbago 05/23/2006 Mild intermittent asthma without complication (HCC) 05/23/2006 Since age 11. No medication. Last attack > 10 years OBESITY NOS 05/23/2006 Peripheral autonomic neuropathy due to diabetes mellitus (HCC) PMH - PAST MEDICAL HISTORY OF kidney stones Polycystic ovaries 05/23/2006 Polycystic ovaries 05/23/2006 Snoring Sprain of lumbar region 08/04/2014 Tobacco use disorder 06/05/2009 Type II or unspecified type diabetes mellitus without mention of complication, not stated as uncontrolled 06/05/2009 Unspecified asthma(493.90) PAST SURGICAL HISTORY Procedure Laterality Date DELIVERY ONLY , low cervical COLONOSCOPY 08/28/2018 hemorrhoid banding L'SCOPE DX W/WO BRUSHINGS/WASHINGS 04/15/2024 LAPAROSCOPY SURG CHOLECYSTECTOMY Cholecystectomy, lap MYRINGOTOMY ASPIR&/EUSTACHIAN TUBE NFLTJ ANES Myringotomy/tubes PAST SURGICAL HISTORY OF stents in ureter for kidney stones PAST SURGICAL HISTORY OF 08/04/2014 lumbar pain injections. TONSILLECTOMY PRIMARY/SECONDARY <AGE 13 Tonsillectomy ALLERGIES Avelox [Moxifloxacin Hcl], Doxy [Doxycycline], Penicillins, and Prozac [Fluoxetine Hcl] MEDICATIONS Current Outpatient Medications Medication Sig hydrOXYzine HCl (ATARAX) 10 mg tablet Take 10 mg by mouth three times a day as needed for anxiety. empagliflozin (JARDIANCE) 25 mg tablet Take 1 tablet by mouth daily with breakfast. magnesium oxide (MAG-OX) 400 mg (241.3 mg magnesium) tablet Take 1 tablet by mouth three times a day. simvastatin (ZOCOR) 40 mg tablet Take 1 tablet by mouth daily at bedtime. busPIRone HCl 30 mg tablet Take 1 tablet by mouth two times a day. venlafaxine ER (EFFEXOR XR) 75 mg 24 hr capsule Take 1 capsule by mouth once daily. amitriptyline (ELAVIL) 100 mg tablet Take 1 tablet by mouth daily at bedtime. propranolol (INDERAL) 40 mg tablet Take 1 tablet by mouth two times a day. topiramate (TOPAMAX) 50 mg tablet Take 1 tablet by mouth two times a day. polyethylene glycol 3350 17 gram/dose powder Take 17 g by mouth once daily. metFORMIN (GLUCOPHAGE) 1,000 mg tablet Take 1 tablet by mouth two times a day with meals. norethindrone (AYGESTIN) 5 mg tablet Take 1 tablet by mouth once daily. ZINC ORAL Take 50 mg by mouth once daily. cholecalciferol, vitamin D3, (VITAMIN D3 ORAL) Take 1 tablet by mouth once daily. blood-glucose meter,mobile dev (iPeen BLOOD GLUCOSE MONITOR) lyn albuterol HFA (PROAIR HFA) 90 mcg/actuation inhaler Inhale 2 Puffs as instructed every 4 hours as needed. omega-3 fatty acids (FISH OIL CONCENTRATE) 1,000 mg cap Take 1,000 mg by mouth once daily. HYDROcodone-acetaminophen (NORCO) 5-325 mg per tablet Take 5-325 tablets by mouth twice daily as needed. multivit-minerals/ferrous fum (MULTI VITAMIN ORAL) Take 1 tablet by mouth once daily. TIZANIDINE HCL (ZANAFLEX ORAL) Take by mouth two times a day as needed. No current facility-administered medications for this visit. FAMILY HISTORY Problem Relation Age of Onset Diabetes Mother Diabetes Father Colon Cancer Father 61 Diabetes Maternal Grandmother other (Parkinson's) Maternal Grandmother Stroke Maternal Grandfather Diabetes Maternal Grandfather Colon Cancer Paternal Grandfather Social History Tobacco Use Smoking status: Former Current packs/day: 0.00 Average packs/day: 0.3 packs/day for 3.0 years (0.9 ttl pk-yrs) Types: Cigarettes Start date: 09/10/2010 Quit date: 09/10/2013 Years since quittin.2 Smokeless tobacco: Never Tobacco comments: uses E cigs Vaping Use Vaping status: current everyday user Substances: Nicotine, Flavoring Devices: [employer] tank Substance Use Topics Alcohol use: No Drug use: No EXAM: BP 128/70 Pulse 72 Temp 36.1 C (97 F) (Left Tympanic) Wt 89.8 kg (198 lb) LMP 03/08/2024 (Approximate) SpO2 94% BMI 35.75 kg/m PHYSICAL EXAM: Physical Exam Vitals reviewed. Constitutional: Appearance: Normal appearance. HENT: Head: Normocephalic. Cardiovascular: Rate and Rhythm: Normal rate and regular rhythm. Pulses: Normal pulses. Heart sounds: Normal heart sounds. Pulmonary: Effort: Pulmonary effort is normal. Breath sounds: Normal breath sounds. Musculoskeletal: General: Normal range of motion. Right lower leg: No edema. Left lower leg: No edema. Comments: Walks w/o assistive device, moves all ext. easily Skin: General: Skin is warm and dry. Neurological: General: No focal deficit present. Mental Status: She is alert and oriented to person, place, and time. Psychiatric: Mood and Affect: Mood normal. Thought Content: Thought content normal. Judgment: Judgment normal. LABS: Labs ordered in 3 months ASSESSMENT/PLAN: 1. JESSE (generalized anxiety disorder) - ICD9: 300.02, ICD10: F41.1 (primary diagnosis) Improving - Hydroxyzine helping 2. Anxiety with depression - ICD9: 300.4, ICD10: F41.8 Improving 3. Controlled type 2 diabetes mellitus without complication, without long-term current use of insulin (HCC) - ICD9: 250.00, ICD10: E11.9 - Uncontrolled - Improving control - Continue current medications 4. Fatty liver - ICD9: 571.8, ICD10: K76.0 Stable 5. Panic disorder - ICD9: 300.01, ICD10: F41.0 Ongoing- improving control - following with psychiatry Discussed treatment plan and patient voices understanding. Patient's questions answered appropriately. Medications and potential side effects were discussed and patient voices understanding. Return to the office as scheduled or as needed for worsening/no improvement. Myranda Dallas APRN.KIMO documented in this encounter [facility] 11-23-2024 Telephone encounter Note Patient was made aware of the results. Patient verbalizes understanding. Mariel Pruitt Ma [facility] 11-23-2024 Miscellaneous Notes Patient was made aware of the results. Patient verbalizes understanding. Mariel Pruitt Ma ----- Message from Myranda Dallas sent at 11/22/2024 7:54 AM EDT ----- Your diabetes is not controlled. Hemoglobin A1c is 8. I will add empagliflozin 25 mg daily. That is cardiac and kidney protective. Your magnesium level remains low. I will increase your magnesium oxide to 3 tablets daily. Liver functions remain slightly elevated but stable. Cholesterol levels are fine. White blood count is elevated once again. That is likely from tobacco use. This has been longstanding. Your diabetes is not controlled. Hemoglobin A1c is 8. I will add empagliflozin 25 mg daily. That is cardiac and kidney protective. Your magnesium level remains low. I will increase your magnesium oxide to 3 tablets daily. Liver functions remain slightly elevated but stable. Cholesterol levels are fine. White blood count is elevated once again. That is likely from tobacco use. This has been longstanding. documented in this encounter [facility] 11-23-2024 Telephone encounter Note ----- Message from Myranda Dallas sent at 11/22/2024 7:54 AM EDT ----- Your diabetes is not controlled. Hemoglobin A1c is 8. I will add empagliflozin 25 mg daily. That is cardiac and kidney protective. Your magnesium level remains low. I will increase your magnesium oxide to 3 tablets daily. Liver functions remain slightly elevated but stable. Cholesterol levels are fine. White blood count is elevated once again. That is likely from tobacco use. This has been longstanding. [facility] 11-22-2024 Progress note Formatting of t his note might be different from the original. Your diabetes is not controlled. Hemoglobin A1c is 8. I will add empagliflozin 25 mg daily. That is cardiac and kidney protective. Your magnesium level remains low. I will increase your magnesium oxide to 3 tablets daily. Liver functions remain slightly elevated but stable. Cholesterol levels are fine. White blood count is elevated once again. That is likely from tobacco use. This has been longstanding. [facility] 11-20-2024 Note HNO ID: [id number] Author: EDVIN MORENO LISW Service: ? Author Type: Therapist Type: Progress Notes Filed: 11/20/2024 19:06 Note Text: Behavioral Health Social Work Progress Note Patient identified for [facility] from: PCP Reason for referral: Resources Behavioral Health Resources: Psychiatry med management, Psychology - talk therapy [facility] encounter type: Netadminhart Message Attempts to Outreach: 1 attempt Referral made: Psychiatry - External, Psychology - External Psychology-External referral type: Therapy Psychiatry-External referral type: Medication Management Reason for external referral: Wait times at [facility] too long Final Disposition: Resources given Patient Discharged?: No Patient reported that caregiver was able to meet their needs today?: N/A SW sent the following resources to Pt via GroupT[employer]: [facility]) [address] [place] [address] [facility] [address] [place] [address] [facility] [address] [place] [id number] [facility] [address] [place], [place] [id number] [place] [address] [place] [address], [facility] [phone] MELODIE Villalobos November 20, 2024 [facility] 11-20-2024 History of Present illness Narrative Behavioral Health Social Work Progress Note Patient identified for [facility] from: PCP Reason for referral: Resources Behavioral Health Resources: Psychiatry med management, Psychology - talk therapy [facility] encounter type: MyChart Message Attempts to Outreach: 1 attempt Referral made: Psychiatry - External, Psychology - External Psychology-External referral type: Therapy Psychiatry-External referral type: Medication Management Reason for external referral: Wait times at [facility] too long Final Disposition: Resources given Patient Discharged?: No Patient reported that caregiver was able to meet their needs today?: N/A SW sent the following resources to Pt via [employer]: [facility] ([facility]) [address] [place] [address] [facility] [address] [place] [address] [facility] [address] [place] [address] [facility] [address] [place] [id number] [facility], [address] MELODIE Villalobos November 20, 2024 documented in this encounter [facility] 11-18-2024 Instructions Myranda Dallas APRN.CNP - 11/18/2024 10:17 AM EDT 1) Check labs 2) Increase propranolol to 40 mg 2 x day 3) Increase venlafaxine to 75 mg daily 4) Mupirocin ointment to right leg 3 x day for 5 days 5) Consult behavioral health to contact you documented in this encounter [facility] 11-18-2024 Note HNO ID: [id number] Author: MYRANDA DALLAS APRN.CNP Service: ? Author Type: Nurse Practitioner Type: Progress Notes Filed: 11/18/2024 10:18 Note Text: This is a 44 year old female who presents today with: Patient presents with: Dizziness Palpitations HISTORY OF PRESENT ILLNESS: Ana Hernandez is a 44 year old female. Patient presents with: Dizziness Palpitations Feels like she is having a panic attack but symptoms won't go away. Nothing precipitated it. Ongoing for 1 week. The last 2 days have been worse. Had headache over weekend. Lasted 2 days. Took her medicine and slept all weekend. No nausea or vomiting. Heart racing. Impending doom- like something is going to happen No SOB Has been taking propranolol. No swelling in legs No chest pain or pressure No change in stress- nothing new REVIEW OF SYSTEMS GENERAL: No weight loss- luxates, + malaise, no fevers/chills HEENT: + migraine headaches NECK: Negative for lumps, goiter, pain and significant neck swelling RESPIRATORY: Negative for cough, hemoptysis, wheezing, dyspnea or shortness of breath CARDIOVASCULAR: Negative for chest pain, leg swelling, or orthopnea, + palpitations GI: No nausea, vomiting MOOD: + depression, + anxiety, no suicidal ideation. Abrasion on right lower ext.- scabbed over- red in perimeter- no drainage PAST MEDICAL HISTORY: PAST MEDICAL HISTORY Diagnosis Date ABN GLUCOSE-ANTEPARTUM 05/23/2006 ASTHMA UNSPECIFIED 05/23/2006 Calculus of ureter 05/23/2006 Callus of foot Callus of foot COMMON MIGRAINE W/O MENTN INTRACT 05/23/2006 DEPRESSIVE DISORDER NEC 08/20/200606/09 -Stable, no meds Family history of diabetes mellitus 05/23/2006 Mother, Father, Maternal Grandparents FAMILY HX DIABETES MELLITUS 05/23/2006 Mother, Father, Maternal Grandparents Fatty liver 06/05/2009 CT Scan 01/06, showed diffuse fatty liver. LFTs elevated in past, but 06/09 - normal GOITER NOS 09/28/2006 TSH normal Lumbago 05/23/2006 Mild intermittent asthma without complication 05/23/2006 Since age 11. No medication. Last attack > 10 years OBESITY NOS 05/23/2006 Peripheral autonomic neuropathy due to diabetes mellitus (HCC) PMH - PAST MEDICAL HISTORY OF kidney stones Polycystic ovaries 05/23/2006 Polycystic ovaries 05/23/2006 Snoring Sprain of lumbar region 08/04/2014 Tobacco use disorder 06/05/2009 Type II or unspecified type diabetes mellitus without mention of complication, not stated as uncontrolled 06/05/2009 Unspecified asthma(493.90) PAST SURGICAL HISTORY Procedure Laterality Date DELIVERY ONLY , low cervical COLONOSCOPY 08/28/2018 hemorrhoid banding L'SCOPE DX W/WO BRUSHINGS/WASHINGS 04/15/2024 LAPAROSCOPY SURG CHOLECYSTECTOMY Cholecystectomy, lap MYRINGOTOMY ASPIRAND/EUSTACHIAN TUBE NFLTJ ANES Myringotomy/tubes PAST SURGICAL HISTORY OF stents in ureter for kidney stones PAST SURGICAL HISTORY OF 08/04/2014 lumbar pain injections. TONSILLECTOMY PRIMARY/SECONDARY Tonsillectomy ALLERGIES Avelox [Moxifloxacin Hcl], Doxy [Doxycycline], Penicillins, and Prozac [Fluoxetine Hcl] MEDICATIONS Current Outpatient Medications Medication Sig amitriptyline (ELAVIL) 50 mg tablet Take 1-2 tablets by mouth daily at bedtime. propranolol (INDERAL) 40 mg tablet Take 0.5 tablets by mouth two times a day. topiramate (TOPAMAX) 50 mg tablet Take 1 tablet by mouth two times a day. polyethylene glycol 3350 17 gram/dose powder Take 17 g by mouth once daily. magnesium oxide (MAG-OX) 400 mg (241.3 mg magnesium) tablet Take 1 tablet by mouth two times a day. metFORMIN (GLUCOPHAGE) 1,000 mg tablet Take 1 tablet by mouth two times a day with meals. venlafaxine ER (EFFEXOR XR) 37.5 mg 24 hr capsule Take 1 capsule by mouth once daily. ZINC ORAL Take 50 mg by mouth once daily. cholecalciferol, vitamin D3, (VITAMIN D3 ORAL) Take 1 tablet by mouth once daily. albuterol HFA (PROAIR HFA) 90 mcg/actuation inhaler Inhale 2 Puffs as instructed every 4 hours as needed. omega-3 fatty acids (FISH OIL CONCENTRATE) 1,000 mg cap Take 1,000 mg by mouth once daily. HYDROcodone-acetaminophen (NORCO) 5-325 mg per tablet Take 5-325 tablets by mouth twice daily as needed. multivit-minerals/ferrous fum (MULTI VITAMIN ORAL) Take 1 tablet by mouth once daily. TIZANIDINE HCL (ZANAFLEX ORAL) Take by mouth two times a day as needed. simvastatin (ZOCOR) 40 mg tablet Take 1 tablet by mouth daily at bedtime. busPIRone HCl 30 mg tablet Take 1 tablet by mouth two times a day. norethindrone (AYGESTIN) 5 mg tablet Take 1 tablet by mouth once daily. (Patient not taking: No sig reported) blood-glucose meter,mobile dev (iPeen BLOOD GLUCOSE MONITOR) lyn No current facility-administered medications for this visit. FAMILY HISTORY Problem Relation Age of Onset Diabetes Mother Diabetes Father Colon Cancer Father 61 Diabetes Maternal Grandmother other (Parkinson's) Maternal Grand (more content not included)... [facility] 11-18-2024 History of Present illness Narrative This is a 44 year old female who presents today with: Patient presents with: Dizziness Palpitations HISTORY OF PRESENT ILLNESS: Ana Hernandez is a 44 year old female. Patient presents with: Dizziness Palpitations Feels like she is having a panic attack but symptoms won't go away. Nothing precipitated it. Ongoing for 1 week. The last 2 days have been worse. Had headache over weekend. Lasted 2 days. Took her medicine and slept all weekend. No nausea or vomiting. Heart racing. Impending doom- like something is going to happen No SOB Has been taking propranolol. No swelling in legs No chest pain or pressure No change in stress- nothing new REVIEW OF SYSTEMS GENERAL: No weight loss- luxates, + malaise, no fevers/chills HEENT: + migraine headaches NECK: Negative for lumps, goiter, pain and significant neck swelling RESPIRATORY: Negative for cough, hemoptysis, wheezing, dyspnea or shortness of breath CARDIOVASCULAR: Negative for chest pain, leg swelling, or orthopnea, + palpitations GI: No nausea, vomiting MOOD: + depression, + anxiety, no suicidal ideation. Abrasion on right lower ext.- scabbed over- red in perimeter- no drainage PAST MEDICAL HISTORY: PAST MEDICAL HISTORY Diagnosis Date ABN GLUCOSE-ANTEPARTUM 05/23/2006 ASTHMA UNSPECIFIED 05/23/2006 Calculus of ureter 05/23/2006 Callus of foot Callus of foot COMMON MIGRAINE W/O MENTN INTRACT 05/23/2006 DEPRESSIVE DISORDER NEC 08/20/200606/09 -Stable, no meds Family history of diabetes mellitus 05/23/2006 Mother, Father, Maternal Grandparents FAMILY HX DIABETES MELLITUS 05/23/2006 Mother, Father, Maternal Grandparents Fatty liver 06/05/2009 CT Scan 01/06, showed diffuse fatty liver. LFTs elevated in past, but 06/09 - normal GOITER NOS 09/28/2006 TSH normal Lumbago 05/23/2006 Mild intermittent asthma without complication 05/23/2006 Since age 11. No medication. Last attack > 10 years OBESITY NOS 05/23/2006 Peripheral autonomic neuropathy due to diabetes mellitus (HCC) PMH - PAST MEDICAL HISTORY OF kidney stones Polycystic ovaries 05/23/2006 Polycystic ovaries 05/23/2006 Snoring Sprain of lumbar region 08/04/2014 Tobacco use disorder 06/05/2009 Type II or unspecified type diabetes mellitus without mention of complication, not stated as uncontrolled 06/05/2009 Unspecified asthma(493.90) PAST SURGICAL HISTORY Procedure Laterality Date DELIVERY ONLY , low cervical COLONOSCOPY 08/28/2018 hemorrhoid banding L'SCOPE DX W/WO BRUSHINGS/WASHINGS 04/15/2024 LAPAROSCOPY SURG CHOLECYSTECTOMY Cholecystectomy, lap MYRINGOTOMY ASPIR&/EUSTACHIAN TUBE NFLTJ ANES Myringotomy/tubes PAST SURGICAL HISTORY OF stents in ureter for kidney stones PAST SURGICAL HISTORY OF 08/04/2014 lumbar pain injections. TONSILLECTOMY PRIMARY/SECONDARY <AGE 13 Tonsillectomy ALLERGIES Avelox [Moxifloxacin Hcl], Doxy [Doxycycline], Penicillins, and Prozac [Fluoxetine Hcl] MEDICATIONS Current Outpatient Medications Medication Sig amitriptyline (ELAVIL) 50 mg tablet Take 1-2 tablets by mouth daily at bedtime. propranolol (INDERAL) 40 mg tablet Take 0.5 tablets by mouth two times a day. topiramate (TOPAMAX) 50 mg tablet Take 1 tablet by mouth two times a day. polyethylene glycol 3350 17 gram/dose powder Take 17 g by mouth once daily. magnesium oxide (MAG-OX) 400 mg (241.3 mg magnesium) tablet Take 1 tablet by mouth two times a day. metFORMIN (GLUCOPHAGE) 1,000 mg tablet Take 1 tablet by mouth two times a day with meals. venlafaxine ER (EFFEXOR XR) 37.5 mg 24 hr capsule Take 1 capsule by mouth once daily. ZINC ORAL Take 50 mg by mouth once daily. cholecalciferol, vitamin D3, (VITAMIN D3 ORAL) Take 1 tablet by mouth once daily. albuterol HFA (PROAIR HFA) 90 mcg/actuation inhaler Inhale 2 Puffs as instructed every 4 hours as needed. omega-3 fatty acids (FISH OIL CONCENTRATE) 1,000 mg cap Take 1,000 mg by mouth once daily. HYDROcodone-acetaminophen (NORCO) 5-325 mg per tablet Take 5-325 tablets by mouth twice daily as needed. multivit-minerals/ferrous fum (MULTI VITAMIN ORAL) Take 1 tablet by mouth once daily. TIZANIDINE HCL (ZANAFLEX ORAL) Take by mouth two times a day as needed. simvastatin (ZOCOR) 40 mg tablet Take 1 tablet by mouth daily at bedtime. busPIRone HCl 30 mg tablet Take 1 tablet by mouth two times a day. norethindrone (AYGESTIN) 5 mg tablet Take 1 tablet by mouth once daily. (Patient not taking: No sig reported) blood-glucose meter,mobile dev (i[employer]en BLOOD GLUCOSE MONITOR) lyn No current facility-administered medications for this visit. FAMILY HISTORY Problem Relation Age of Onset Diabetes Mother Diabetes Father Colon Cancer Father 61 Diabetes Maternal Grandmother other (Parkinson's) Maternal Grandmother Stroke Maternal Grandfather Diabetes Maternal Grandfather Colon Cancer Paternal Grandfather Social History Tobacco Use Smoking status: Former Current packs/day: 0.00 Average packs/day: 0.3 packs/day for 3.0 years (0.9 ttl pk-yrs) Types: Cigarettes Start date: 09/10/2010 Quit date: 09/10/2013 Years since quittin.1 Smokeless tobacco: Never Tobacco comments: uses E cigs Vaping Use Vaping status: current everyday user Substances: Nicotine, Flavoring Devices: [employer] tank Substance Use Topics Alcohol use: No Drug use: No EXAM: BP 136/72 Pulse 99 Temp 36.4 C (97.5 F) (Left Tympanic) Wt 90.3 kg (199 lb) LMP 03/08/2024 (Approximate) SpO2 98% BMI 35.93 kg/m PHYSICAL EXAM: Physical Exam Vitals reviewed. Constitutional: Appearance: Normal appearance. HENT: Head: Normocephalic. Cardiovascular: Rate and Rhythm: Normal rate and regular rhythm. Pulses: Normal pulses. Heart sounds: Normal heart sounds. Pulmonary: Effort: Pulmonary effort is normal. Breath sounds: Normal breath sounds. Abdominal: General: Bowel sounds are normal. Palpations: Abdomen is soft. Tenderness: There is no abdominal tenderness. There is no guarding or rebound. Musculoskeletal: General: Normal range of motion. Right lower leg: No edema. Left lower leg: No edema. Skin: General: Skin is warm and dry. Neurological: Mental Status: She is alert and oriented to person, place, and time. Psychiatric: Mood and Affect: Mood normal. Behavior: Behavior normal. Thought Content: Thought content normal. Judgment: Judgment normal. LABS: labs due ASSESSMENT/PLAN: 1. Palpitations - ICD9: 785.1, ICD10: R00.2 (primary diagnosis) Increase propranolol to 40 mg 2 x day - ECG COMPLETE - COMPLETE BLOOD COUNT AND DIFFERENTIAL - COMPREHENSIVE METABOLIC PANEL - MAGNESIUM - VITAMIN B12 2. Migraine without aura and without status migrainosus, not intractable - ICD9: 346.10, ICD10: G43.009 Renew topiramate - PROPRANOLOL 60 MG TABLET - AMITRIPTYLINE 100 MG TABLET - COMPLETE BLOOD COUNT AND DIFFERENTIAL - MAGNESIUM - VITAMIN B12 - PROPRANOLOL 40 MG TABLET 3. Fatty liver - ICD9: 571.8, ICD10: K76.0 Check labs - SIMVASTATIN 40 MG TABLET 4. Depressive disorder - ICD9: 311, ICD10: F32.A Ongoing - BUSPIRONE 30 MG TABLET - Consult primary care behavioral health 5. Panic disorder - ICD9: 300.01, ICD10: F41.0 Acute- ongoing 1 week - CONSULT TO PRIMARY CARE BE[facility]IORAL HE[facility] ADULT - COMPLETE BLOOD COUNT AND DIFFERENTIAL - COMPREHENSIVE METABOLIC PANEL - MAGNESIUM - VITAMIN B12 6. Anxiety with depression - ICD9: 300.4, ICD10: F41.8 Increase venlafaxine - VENLAFAXINE ER 75 MG CAPSULE,EXTENDED RELEASE 24 HR - COMPLETE BLOOD COUNT AND DIFFERENTIAL - COMPREHENSIVE METABOLIC PANEL - MAGNESIUM - VITAMIN B12 7. Pure hypercholesterolemia - ICD9: 272.0, ICD10: E78.00 Check - LIPID PANEL, NONFASTING 8. Goiter, euthyroid - ICD9: 240.9, ICD10: E04.9 Check labs - VITAMIN B12 - THYROID STIMULATING HORMONE 9. Controlled type 2 diabetes mellitus without complication, without long-term current use of insulin (HCC) - ICD9: 250.00, ICD10: E11.9 - Control undetermined, due for labs - Continue current medications - HEMOGLOBIN A1C 10. Abrasion - ICD9: 919.0, ICD10: T14.8XXA Right lower leg- no drainage but red - MUPIROCIN 2 % TOPICAL OINTMENT Discussed treatment plan and patient voices understanding. Patient's questions answered appropriately. Medications and potential side effects were discussed and patient voices understanding. Return to the office as scheduled or as needed for worsening/no improvement. Myranda Dallas APRN.CNP documented in this encounter [facility] 11-18-2024 Telephone encounter Note Pt put this in a [employer] msg and sent it last evening at 835 pm. Dizziness, shakiness, feelings of dread, heart racing. I feel like I am having a panic attackall daylong. Called and spoke with pt who is on her way to an appt that has been scheduled with Anuradha Dallas for the above symptoms. Pt is driving herself. Pt states has had these symptoms off and on for about a week. Denies any of the above symptoms at this time. Pt is unsure what her heart rate is. She states when she has these episodes, it feels like my heart is racing but she doesn't actually know if it is. States the dizziness and shakiness come and go. But she says she has gotten so dizzy that she actually has passed out. She has a vision of darkness. Pt is a diabetic but has not checked her blood sugar during any of these episodes. She states she has been diabetic for 17 years and has never felt like this before and states she is usually pretty good at knowing when her blood sugar drops. Pt states she is also more irritable than normal. She also states that the feelings of dread are she feels like something is going to happen to her. [facility] 11-18-2024 Miscellaneous Notes Pt put this in a [employer] msg and sent it last evening at 835 pm. Dizziness, shakiness, feelings of dread, heart racing. I feel like I am having a panic attackall daylong. Called and spoke with pt who is on her way to an appt that has been scheduled with Anuradha Dallas for the above symptoms. Pt is driving herself. Pt states has had these symptoms off and on for about a week. Denies any of the above symptoms at this time. Pt is unsure what her heart rate is. She states when she has these episodes, it feels like my heart is racing but she doesn't actually know if it is. States the dizziness and shakiness come and go. But she says she has gotten so dizzy that she actually has passed out. She has a vision of darkness. Pt is a diabetic but has not checked her blood sugar during any of these episodes. She states she has been diabetic for 17 years and has never felt like this before and states she is usually pretty good at knowing when her blood sugar drops. Pt states she is also more irritable than normal. She also states that the feelings of dread are she feels like something is going to happen to her. documented in this encounter [facility] 06-07-2024 Telephone encounter Note The following approved medication requests have been transmitted electronically. Requested Prescriptions Pending Prescriptions Disp Refills amitriptyline (ELAVIL) 50 mg tablet 60 tablet 4 Sig: Take 1-2 tablets by mouth daily at bedtime. propranolol (INDERAL) 40 mg tablet 90 tablet 1 Sig: Take 0.5 tablets by mouth two times a day. topiramate (TOPAMAX) 50 mg tablet 120 tablet 1 Sig: Take 1 tablet by mouth two times a day. Myranda Dallas APRN.CNP [facility] 06-07-2024 Miscellaneous Notes The following approved medication requests have been transmitted electronically. Requested Prescriptions Pending Prescriptions Disp Refills amitriptyline (ELAVIL) 50 mg tablet 60 tablet 4 Sig: Take 1-2 tablets by mouth daily at bedtime. propranolol (INDERAL) 40 mg tablet 90 tablet 1 Sig: Take 0.5 tablets by mouth two times a day. topiramate (TOPAMAX) 50 mg tablet 120 tablet 1 Sig: Take 1 tablet by mouth two times a day. Myranda Dallas APRN.CNP Prescription Refill Information The patient has been identified by name and date of : Yes Caregiver verified no other encounters exist for this prescription request: Yes Caregiver confirmed with patient/requestor that no other refills are due, in the near future, with this provider at this time: Yes The last office visit in the department: 03/15/2024 Does the patient have a future office visit with this provider/department: Yes, 09/16/2024 Requested Prescriptions Pending Prescriptions Disp Refills amitriptyline (ELAVIL) 50 mg tablet 60 tablet 4 Sig: Take 1-2 tablets by mouth daily at bedtime. propranolol (INDERAL) 40 mg tablet 90 tablet 1 Sig: Take 0.5 tablets by mouth two times a day. topiramate (TOPAMAX) 50 mg tablet 120 tablet 1 Sig: Take 1 tablet by mouth two times a day. LULY Schneider June 07, 2024 7:44 AM documented in this encounter [facility] 06-07-2024 Telephone encounter Note Prescription Refill Information The patient has been identified by name and date of : Yes Caregiver verified no other encounters exist for this prescription request: Yes Caregiver confirmed with patient/requestor that no other refills are due, in the near future, with this provider at this time: Yes The last office visit in the department: 03/15/2024 Does the patient have a future office visit with this provider/department: Yes, 09/16/2024 Requested Prescriptions Pending Prescriptions Disp Refills amitriptyline (ELAVIL) 50 mg tablet 60 tablet 4 Sig: Take 1-2 tablets by mouth daily at bedtime. propranolol (INDERAL) 40 mg tablet 90 tablet 1 Sig: Take 0.5 tablets by mouth two times a day. topiramate (TOPAMAX) 50 mg tablet 120 tablet 1 Sig: Take 1 tablet by mouth two times a day. LULY Schneider June 07, 2024 7:44 AM [facility] 04-25-2024 Telephone encounter Note I called and let Guan[place]ito know the below information and she stated understanding. I did schedule her for lab work to be done tomorrow 04/26/24 @ 8:30 am, she confirmed this date, time and location Paul Modi Pss [facility] 04-25-2024 Miscellaneous Notes I called and let Guanakito know the below information and she stated understanding. I did schedule her for lab work to be done tomorrow 04/26/24 @ 8:30 am, she confirmed this date, time and location Paul Modi Pss Can let her know the repeat CBC was normal. Flow cytometry showed no evidence of chronic leukemia. Likely previous increases in white blood cell count secondary to fatty liver and history of PCO. Inflammatory markers elevated. Ferritin mildly elevated. Return for another blood test to rule out hereditary hemochromatosis. Jose Tsai DO documented in this encounter [facility] 04-25-2024 Telephone encounter Note Can let her know the repeat CBC was normal. Flow cytometry showed no evidence of chronic leukemia. Likely previous increases in white blood cell count secondary to fatty liver and history of PCO. Inflammatory markers elevated. Ferritin mildly elevated. Return for another blood test to rule out hereditary hemochromatosis. Jose Tsai DO [facility] 04-23-2024 Telephone encounter Note See result note Flagyl sent for +BV [facility] 04-23-2024 Miscellaneous Notes See result note Flagyl sent for +BV documented in this encounter [facility] 04-22-2024 Note HNO ID: [id number] Author: ZHENG LUNA MD Service: ? Author Type: Physician Type: Progress Notes Filed: 04/22/2024 13:55 Note Text: Route Vending Machine Servicer offered: Patient declines. DATE OF SERVICE: 04/22/2024 PROBLEM: Ana Hernandez presents for postop visit. SURGERY AND DATE: diagnostic hysteroscopy 04/15/2024 Patient was planning on hysterectomy. At time of surgery significant adhesive disease was noted. Uterus was adhered to anterior abdominal wall. Left pelvic side wall contained significant adhesive disease and adnexa and ureter were unable to be visualized PATHOLOGY: none SUBJECTIVE/INTERVAL HISTORY: Ana Hernandez is doing okay. Abdominal pain is improving slowly. She describes the pain as an ache. Passing gas and eating well. No nausea or vomiting. No bowel movement since before surgery. Having a vaginal discharge that is pink in color. No vaginal odor or vaginal itching or burning. No fevers, chills. No difficulty with urination. Went into the ER and had labs and X-ray done. OBJECTIVE: VITALS: BP 110/72 Wt 91.6 kg (202 lb) LMP 03/08/2024 (Approximate) BMI 36.47 kg/m? HEENT: Normocephalic and atraumatic ABDOMEN: Abdomen soft, minimally tender, no hepatosplenomegaly. Incision healing well. Non distended. Non acute PELVIC: External genitalia normal. Vagina and cervix normal on exam. Thin, barton discharge present LOWER EXTREMITIES: No pitting edema, no palpable cords, and no skin changes. ASSESSMENT: post op PLAN: Reviewed surgical findings Referral placed to [facility] Check for BV Discussed pain likely secondary to gas and constipation. Taking Colace. Sent rx for Miralax. Push fluids and encouraged probiotic, fiber, prune or pear juice. To notify office by Friday if no improvement with Miralax Zheng Luna, [facility] 04-22-2024 History of Present illness Narrative Route Vending Machine Servicer offered: Patient declines. DATE OF SERVICE: 04/22/2024 PROBLEM: Ana Hernandez presents for postop visit. SURGERY & DATE: diagnostic hysteroscopy 04/15/2024 Patient was planning on hysterectomy. At time of surgery significant adhesive disease was noted. Uterus was adhered to anterior abdominal wall. Left pelvic side wall contained significant adhesive disease and adnexa and ureter were unable to be visualized PATHOLOGY: none SUBJECTIVE/INTERVAL HISTORY: Ana Hernandez is doing okay. Abdominal pain is improving slowly. She describes the pain as an ache. Passing gas and eating well. No nausea or vomiting. No bowel movement since before surgery. Having a vaginal discharge that is pink in color. No vaginal odor or vaginal itching or burning. No fevers, chills. No difficulty with urination. Went into the ER and had labs and X-ray done. OBJECTIVE: VITALS: BP 110/72 Wt 91.6 kg (202 lb) LMP 03/08/2024 (Approximate) BMI 36.47 kg/m HEENT: Normocephalic and atraumatic ABDOMEN: Abdomen soft, minimally tender, no hepatosplenomegaly. Incision healing well. Non distended. Non acute PELVIC: External genitalia normal. Vagina and cervix normal on exam. Thin, barton discharge present LOWER EXTREMITIES: No pitting edema, no palpable cords, and no skin changes. ASSESSMENT: post op PLAN: Reviewed surgical findings Referral placed to [facility] Check for BV Discussed pain likely secondary to gas and constipation. Taking Colace. Sent rx for Miralax. Push fluids and encouraged probiotic, fiber, prune or pear juice. To notify office by Friday if no improvement with Miralax Zheng Luna DO documented in this encounter [facility] 04-22-2024 Note HNO ID: [id number] Author: JOSE TSAI DO Service: ? Author Type: Physician Type: Progress Notes Filed: 04/22/2024 11:13 Note Text: Consulted for leukocytosis. The impression and plan will be communicated by way of the shared electronic record. HPI: The patient is a 44-year-old female with past medical history as outlined below. Vapes. Menses irregular. Heavy. Painful. Has been diagnosed with PCOS--dx at age 7 when living in [place]. Was going have hysterectomy last week, but couldn't have done due to ?adhesions. Has h/o asthma. Only uses albuterol if sick. Used it last when had Covid last year. Diagnosed with fatty liver in the past. Persistent mild increase in hepatocellular enzymes. PAST MEDICAL HISTORY 05/23/2006: ABN GLUCOSE-ANTEPARTUM 05/23/2006: ASTHMA UNSPECIFIED 05/23/2006: Calculus of ureter No date: Callus of foot No date: Callus of foot 05/23/2006: COMMON MIGRAINE W/O MENTN INTRACT 08/20/2006: DEPRESSIVE DISORDER NEC Comment: 06/09 -Stable, no meds 05/23/2006: Family history of diabetes mellitus Comment: Mother, Father, Maternal Grandparents 05/23/2006: FAMILY HX DIABETES MELLITUS Comment: Mother, Father, Maternal Grandparents 06/05/2009: Fatty liver Comment: CT Scan 01/06, showed diffuse fatty liver. LFTs elevated in past, but 06/09 - normal 09/28/2006: GOITER NOS Comment: TSH normal 05/23/2006: Lumbago 05/23/2006: Mild intermittent asthma without complication Comment: Since age 11. No medication. Last attack > 10 years 05/23/2006: OBESITY NOS No date: Peripheral autonomic neuropathy due to diabetes mellitus (HCC) No date: PMH - PAST MEDICAL HISTORY OF Comment: kidney stones 05/23/2006: Polycystic ovaries 05/23/2006: Polycystic ovaries No date: Snoring 08/04/2014: Sprain of lumbar region 06/05/2009: Tobacco use disorder 06/05/2009: Type II or unspecified type diabetes mellitus without mention of complication, not stated as uncontrolled No date: Unspecified asthma(493.90) PAST SURGICAL HISTORY No date: DELIVERY ONLY Comment: , low cervical 08/28/2018: COLONOSCOPY Comment: hemorrhoid banding 04/15/2024: L'SCOPE DX W/WO BRUSHINGS/WASHINGS No date: LAPAROSCOPY SURG CHOLECYSTECTOMY Comment: Cholecystectomy, lap No date: MYRINGOTOMY ASPIRAND/EUSTACHIAN TUBE NFLTJ ANES Comment: Myringotomy/tubes No date: PAST SURGICAL HISTORY OF Comment: stents in ureter for kidney stones 08/04/2014: PAST SURGICAL HISTORY OF Comment: lumbar pain injections. No date: TONSILLECTOMY PRIMARY/SECONDARY Comment: Tonsillectomy ALLERGIES Allergen Reactions Avelox [Moxifloxaci* Rash Doxy [Doxycycline] GI Upset Penicillins Other: See Comments Mother does not recall what the reaction was and was told that she cannot take it Prozac [Fluoxetine * Other: See Comments Mother had side effects from this Social History Tobacco Use Smoking status: Former Current packs/day: 0.00 Average packs/day: 0.3 packs/day for 3.0 years (0.9 ttl pk-yrs) Types: Cigarettes Start date: 09/10/2010 Quit date: 09/10/2013 Years since quittin.6 Smokeless tobacco: Never Tobacco comments: uses E cigs Vaping Use Vaping status: current everyday user Substances: Nicotine, Flavoring Devices: Refillable tank Substance Use Topics Alcohol use: No Drug use: No Family History Problem Relation Age of Onset Diabetes Mother Diabetes Father Colon Cancer Father 61 Diabetes Maternal Grandmother other (Parkinson's) Maternal Grandmother Stroke Maternal Grandfather Diabetes Maternal Grandfather Colon Cancer Paternal Grandfather PHYSICAL EXAM: Vitals: Blood pressure 106/71, pulse 64, temperature 36.7 ?C (98 ?F), temperature source Temporal, height 158.5 cm (5' 2.4), weight 92.1 kg (203 lb), last menstrual period 03/08/2024, SpO2 97%. Well-appearing and in no acute distress. EYES: Sclerae are anicteric bilaterally. ENT: Oral mucosa is unremarkable. There is no sign of thrush or mucositis. LYMPHATIC: There is no palpable cervical, supraclavicular, axillary adenopathy. RESPIRATORY: Inspiratory breath sounds are of normal intensity in all roberson. No rales, wheezes or rhonchi. CARDIOVASCULAR: Rhythm is regular. ABDOMEN: The abdomen is nondistended. No splenomegaly or hepatomegaly. No tenderness. Extremities: No swelling or edema. SKIN: No jaundice. ASSESSMENT/PLAN: (R79.89) LFT elevation (D72.829) Leukocytosis, unspecified type (D72.820) Lymphocytosis Assessment: -The patient is a 44-year-old female with a past medical history as outlined above. -She has had occasional neutrophilia over the last several years. It has been mild. -Recent lymphocytosis in the absence of acute illness. -Has multiple medical issues that can cause chronic low-grade neutrophilia. -Longstanding history of mild increase in hepatocellular enzymes. Plan: -CBC and flow cytometry. -Hepatitis remote panel. -Check ferritin. -Patient be (more content not included)... [facility] 04-22-2024 History of Present illness Narrative Consulted for leukocytosis. The impression and plan will be communicated by way of the shared electronic record. HPI: The patient is a 44-year-old female with past medical history as outlined below. Vapes. Menses irregular. Heavy. Painful. Has been diagnosed with PCOS--dx at age 7 when living in [place]. Was going have hysterectomy last week, but couldn't have done due to ?adhesions. Has h/o asthma. Only uses albuterol if sick. Used it last when had Covid last year. Diagnosed with fatty liver in the past. Persistent mild increase in hepatocellular enzymes. PAST MEDICAL HISTORY 05/23/2006: ABN GLUCOSE-ANTEPARTUM 05/23/2006: ASTHMA UNSPECIFIED 05/23/2006: Calculus of ureter No date: Callus of foot No date: Callus of foot 05/23/2006: COMMON MIGRAINE W/O MENTN INTRACT 08/20/2006: DEPRESSIVE DISORDER NEC Comment: 06/09 -Stable, no meds 05/23/2006: Family history of diabetes mellitus Comment: Mother, Father, Maternal Grandparents 05/23/2006: FAMILY HX DIABETES MELLITUS Comment: Mother, Father, Maternal Grandparents 06/05/2009: Fatty liver Comment: CT Scan 01/06, showed diffuse fatty liver. LFTs elevated in past, but 06/09 - normal 09/28/2006: GOITER NOS Comment: TSH normal 05/23/2006: Lumbago 05/23/2006: Mild intermittent asthma without complication Comment: Since age 11. No medication. Last attack > 10 years 05/23/2006: OBESITY NOS No date: Peripheral autonomic neuropathy due to diabetes mellitus (HCC) No date: PMH - PAST MEDICAL HISTORY OF Comment: kidney stones 05/23/2006: Polycystic ovaries 05/23/2006: Polycystic ovaries No date: Snoring 08/04/2014: Sprain of lumbar region 06/05/2009: Tobacco use disorder 06/05/2009: Type II or unspecified type diabetes mellitus without mention of complication, not stated as uncontrolled No date: Unspecified asthma(493.90) PAST SURGICAL HISTORY No date: DELIVERY ONLY Comment: , low cervical 08/28/2018: COLONOSCOPY Comment: hemorrhoid banding 04/15/2024: L'SCOPE DX W/WO BRUSHINGS/WASHINGS No date: LAPAROSCOPY SURG CHOLECYSTECTOMY Comment: Cholecystectomy, lap No date: MYRINGOTOMY ASPIR&/EUSTACHIAN TUBE NFLTJ ANES Comment: Myringotomy/tubes No date: PAST SURGICAL HISTORY OF Comment: stents in ureter for kidney stones 08/04/2014: PAST SURGICAL HISTORY OF Comment: lumbar pain injections. No date: TONSILLECTOMY PRIMARY/SECONDARY <AGE 13 Comment: Tonsillectomy ALLERGIES Allergen Reactions Avelox [Moxifloxaci* Rash Doxy [Doxycycline] GI Upset Penicillins Other: See Comments Mother does not recall what the reaction was and was told that she cannot take it Prozac [Fluoxetine * Other: See Comments Mother had side effects from this Social History Tobacco Use Smoking status: Former Current packs/day: 0.00 Average packs/day: 0.3 packs/day for 3.0 years (0.9 ttl pk-yrs) Types: Cigarettes Start date: 09/10/2010 Quit date: 09/10/2013 Years since quittin.6 Smokeless tobacco: Never Tobacco comments: uses E cigs Vaping Use Vaping status: current everyday user Substances: Nicotine, Flavoring Devices: [employer] tank Substance Use Topics Alcohol use: No Drug use: No Family History Problem Relation Age of Onset Diabetes Mother Diabetes Father Colon Cancer Father 61 Diabetes Maternal Grandmother other (Parkinson's) Maternal Grandmother Stroke Maternal Grandfather Diabetes Maternal Grandfather Colon Cancer Paternal Grandfather PHYSICAL EXAM: Vitals: Blood pressure 106/71, pulse 64, temperature 36.7 C (98 F), temperature source Temporal, height 158.5 cm (5' 2.4), weight 92.1 kg (203 lb), last menstrual period 03/08/2024, SpO2 97%. Well-appearing and in no acute distress. EYES: Sclerae are anicteric bilaterally. ENT: Oral mucosa is unremarkable. There is no sign of thrush or mucositis. LYMPHATIC: There is no palpable cervical, supraclavicular, axillary adenopathy. RESPIRATORY: Inspiratory breath sounds are of normal intensity in all roberson. No rales, wheezes or rhonchi. CARDIOVASCULAR: Rhythm is regular. ABDOMEN: The abdomen is nondistended. No splenomegaly or hepatomegaly. No tenderness. Extremities: No swelling or edema. SKIN: No jaundice. ASSESSMENT/PLAN: (R79.89) LFT elevation (D72.829) Leukocytosis, unspecified type (D72.820) Lymphocytosis Assessment: -The patient is a 44-year-old female with a past medical history as outlined above. -She has had occasional neutrophilia over the last several years. It has been mild. -Recent lymphocytosis in the absence of acute illness. -Has multiple medical issues that can cause chronic low-grade neutrophilia. -Longstanding history of mild increase in hepatocellular enzymes. Plan: -CBC and flow cytometry. -Hepatitis remote panel. -Check ferritin. -Patient be contacted with the results of the above testing. I spent a total of 35 minutes on the date of the service which included preparing to see the patient, [id number] patient care, completing clinical documentation, obtaining and/or reviewing separately obtained history, performing a medically appropriate examination, counseling and educating the patient/family/caregiver, ordering medications, tests, or procedures, communicating with other HCPs (not separately reported), and communicating results to the patient/family/caregiver. Jose Tsai DO documented in this encounter [facility] 04-19-2024 Telephone encounter Note Patient called and notified of below information and voiced understanding. Pre Op appointment moved to 04/22. Elise Altamirano RN [facility] 04-19-2024 Miscellaneous Notes Patient called and notified of below information and voiced understanding. Pre Op appointment moved to 04/22. Elise Altamirano RN See if she can see me sooner on 04/22 I have an opening at 1.10. Agree with Colace, Miralax PRN, fluids, prune or pear juice. Heat, tylenol and ibuprofen PRN. Could still be gas pain from surgery. To go to ER for severe pain, fevers, chills, N/V. Patient had surgery on 04/15 at [facility]. She is scheduled for post op on 04/26. Elise Altamirano RN documented in this encounter [facility] 04-19-2024 Telephone encounter Note See if she can see me sooner on 04/22 I have an opening at 1.10. Agree with Colace, Miralax PRN, fluids, prune or pear juice. Heat, tylenol and ibuprofen PRN. Could still be gas pain from surgery. To go to ER for severe pain, fevers, chills, N/V. [facility] Work Phone: 04-19-2024 Telephone encounter Note Patient had surgery on 04/15 at [facility]. She is scheduled for post op on 04/26. Elise Altamirano RN [facility] 04-14-2024 Telephone encounter Note Sent text to SW or they can page her tomorrow. Almtia Snyder MD [facility] Work Phone: 04-14-2024 Miscellaneous Notes Sent text to SW or they can page her tomorrow. Almita Snyder MD [facility] pharmacistDouglas. Patient is scheduled for TLH, bilat salp, Cystoscopy with SW tomorrow. Patient has a PCN allergy with hives noted. SW ordered Cefazolin 2 gram. Pharmacist asking if this needs changed. He can be contacted at [phone]. Myriam Wisdom, RN documented in this encounter [facility] 04-14-2024 Telephone encounter Note [facility] pharmacist, [place] called. Patient is scheduled for TLH, bilat salp, Cystoscopy with SW tomorrow. Patient has a PCN allergy with hives noted. SW ordered Cefazolin 2 gram. Pharmacist asking if this needs changed. He can be contacted at [phone]. Myriam Wisdom RN [facility] 04-08-2024 Telephone encounter Note [facility] paperwork is completed and has been faxed to employer. Patient notified. Ricardo Mendez MA [facility] 04-08-2024 Miscellaneous Notes [place] paperwork is completed and has been faxed to employer. Patient notified. Ricardo Mendez MA Received patients FMLA paperwork for upcoming surgery. Completed and placed on providers desk for signature. Ricardo Mendez MA documented in this encounter [facility] 04-06-2024 Progress note Formatting of t his note might be different from the original. Hemoglobin A1c indicates that diabetes is well-controlled. [facility] 04-06-2024 Miscellaneous Notes Hemoglobin A1c indicates that diabetes is well-controlled. documented in this encounter [facility] 04-02-2024 Telephone encounter Note Received patients FMLA paperwork for upcoming surgery. Completed and placed on providers desk for signature. Ricardo Mendez MA [facility] 04-02-2024 History and physical note DATE OF SERVICE: April 02, 2024 PROBLEM: DUB, menorrhagia DIAGNOSIS: DUB, menorrhagia PAST SURGICAL HISTORY: PAST SURGICAL HISTORY No date: DELIVERY ONLY Comment: , low cervical 08/28/2018: COLONOSCOPY Comment: hemorrhoid banding No date: LAPAROSCOPY SURG CHOLECYSTECTOMY Comment: Cholecystectomy, lap No date: MYRINGOTOMY ASPIR&/EUSTACHIAN TUBE NFLTJ ANES Comment: Myringotomy/tubes No date: PAST SURGICAL HISTORY OF Comment: stents in ureter for kidney stones 08/04/14: PAST SURGICAL HISTORY OF Comment: lumbar pain injections. No date: TONSILLECTOMY PRIMARY/SECONDARY Comment: Tonsillectomy PAST MEDICAL HISTORY: PAST MEDICAL HISTORY 05/23/2006: ABN GLUCOSE-ANTEPARTUM 05/23/2006: ASTHMA UNSPECIFIED 05/23/2006: Calculus of ureter No date: Callus of foot No date: Callus of foot 05/23/2006: COMMON MIGRAINE W/O MENTN INTRACT 08/20/2006: DEPRESSIVE DISORDER NEC Comment: 06/09 -Stable, no meds 05/23/2006: Family history of diabetes mellitus Comment: Mother, Father, Maternal Grandparents 05/23/2006: FAMILY HX DIABETES MELLITUS Comment: Mother, Father, Maternal Grandparents 06/05/2009: Fatty liver Comment: CT Scan 01/06, showed diffuse fatty liver. LFTs elevated in past, but 06/09 - normal 09/28/2006: GOITER NOS Comment: TSH normal 05/23/2006: Lumbago 05/23/2006: Mild intermittent asthma without complication Comment: Since age 11. No medication. Last attack > 10 years 05/23/2006: OBESITY NOS No date: Peripheral autonomic neuropathy due to diabetes mellitus (HCC) No date: PMH - PAST MEDICAL HISTORY OF Comment: kidney stones 05/23/2006: Polycystic ovaries 05/23/2006: Polycystic ovaries No date: Snoring 08/04/2014: Sprain of lumbar region 06/05/2009: Tobacco use disorder 06/05/2009: Type II or unspecified type diabetes mellitus without mention of complication, not stated as uncontrolled No date: Unspecified asthma(493.90) SUBJECTIVE: Pt report heavy menses and requests hysterectomy SOCIAL HISTORY: Social History Tobacco Use Smoking status: Former Packs/day: 0.30 Years: 3.00 Additional pack years: 0.00 Total pack years: 0.90 Types: Cigarettes Quit date: 09/10/2013 Years since quittin. Smokeless tobacco: Never Tobacco comments: uses E cigs Vaping Use Vaping Use: current everyday user Substances: Nicotine, Flavoring Devices: Refillable tank Substance Use Topics Alcohol use: No Drug use: No Allergies: Avelox [Moxifloxaci* Rash Doxy [Doxycycline] GI Upset Penicillins Other: See Comments Comment:Mother does not recall what the reaction was and was told that she cannot take it Prozac [Fluoxetine * Other: See Comments Comment:Mother had side effects from this Current Outpatient Medications on File Prior to Visit Medication Sig magnesium oxide (MAG-OX) 400 mg (241.3 mg magnesium) tablet Take 1 tablet by mouth two times a day. metFORMIN (GLUCOPHAGE) 1,000 mg tablet Take 1 tablet by mouth two times a day with meals. venlafaxine ER (EFFEXOR XR) 37.5 mg 24 hr capsule Take 1 capsule by mouth once daily. norethindrone (AYGESTIN) 5 mg tablet Take 1 tablet by mouth once daily. amitriptyline (ELAVIL) 50 mg tablet Take 1-2 tablets by mouth daily at bedtime. busPIRone HCl 30 mg tablet Take 1 tablet by mouth two times a day. simvastatin (ZOCOR) 40 mg tablet Take 1 tablet by mouth daily at bedtime. topiramate (TOPAMAX) 50 mg tablet Take 1 tablet by mouth two times a day. ZINC ORAL Take by mouth. cholecalciferol, vitamin D3, (VITAMIN D3 ORAL) Take by mouth. blood-glucose meter,mobile dev (HOLLY BLOOD GLUCOSE MONITOR) lyn albuterol HFA (PROAIR HFA) 90 mcg/actuation inhaler Inhale 2 Puffs as instructed every 4 hours as needed. omega-3 fatty acids (FISH OIL CONCENTRATE) 1,000 mg cap Take 1,000 mg by mouth once daily. HYDROcodone-acetaminophen (NORCO) 5-325 mg per tablet Take 5-325 tablets by mouth twice daily as needed. multivit-minerals/ferrous fum (MULTI VITAMIN ORAL) Take by mouth. TIZANIDINE HCL (ZANAFLEX ORAL) Take by mouth twice daily. propranolol (INDERAL) 40 mg tablet Take 0.5 tablets by mouth two times a day. No current facility-administered medications on file prior to visit. Pelvic US: RESULT: Uterus: -Size: 10.4 x 4.4 x 6.2 cm -Orientation: Retroverted -Endometrial echo complex: Evaluation of the endometrium was adequate. No endometrial abnormality. The endometrial echo complex measured 0.5 cm. -Cervix: Trace fluid in the cervical canal. -Adenomyosis assessment: There are no sonographic findings of adenomyosis. -Fibroids: There are no fibroids. Right Ovary: 3.3 x 3 x 3 cm, appreciated only on transabdominal imaging - Normal sonographic appearance. Doppler assessment of the ovarian vasculature was not performed. Left Ovary: 3.5 x 1.6 x 3 cm, , appreciated only on transabdominal imaging - Normal sonographic appearance. Doppler assessment of the ovarian vasculature was not performed. Free Fluid: No abnormal free fluid is present. Pap test 2020 normal EMB 01/12/24 benign OBJECTIVE: VITALS: BP 116/78 Pulse 86 Resp 16 Ht 158.1 cm (5' 2.25) Wt 91.6 kg (202 lb) LMP 03/08/2024 (Approximate) BMI 36.65 kg/m HEENT: Normocephalic, atraumatic, Mucus membranes moist without lesions. SKIN: No lesions. CHEST: Clear to auscultation. No wheezes or rales. Good air exchange. HEART: Regular rate and rhythm No S3 or S4. No gallops or rubs. BREAST: No masses, thickenings, skin changes, nipple discharge or axillary lymphadenopathy. BACK: Nontender with no CVA tenderness. ABDOMEN: Soft, non-tender, non-distended, no masses, no hepatosplenomegaly. LOWER EXTREMITIES: There was no pitting edema, no palpable cords and no skin changes. ASSESSMENT: DUB, menorrhagia PLAN: 1) Patient strongly desires hysterectomy. Discussed r/b/a TLH, BS, cystoscopy. The rationale for the proposed surgery was discussed in addition to risks, benefits, and alternatives. General pre- and post-operative care was reviewed. Questions were answered. After discussion, the patient indicated a desire to proceed with the planned surgery. Zheng Luna DO Medical Decision Making: Problems: Low: Stable chronic illness Moderate: 1+ chronic illnesses with change Risk: High: Decision on elective major surgery w/ risk factors Medical Decision Making Level: 4 - Moderate [facility] 04-02-2024 History and physical note DATE OF SERVICE: April 02, 2024 PROBLEM: DUB, menorrhagia DIAGNOSIS: DUB, menorrhagia PAST SURGICAL HISTORY: PAST SURGICAL HISTORY No date: DELIVERY ONLY Comment: , low cervical 08/28/2018: COLONOSCOPY Comment: hemorrhoid banding No date: LAPAROSCOPY SURG CHOLECYSTECTOMY Comment: Cholecystectomy, lap No date: MYRINGOTOMY ASPIR&/EUSTACHIAN TUBE NFLTJ ANES Comment: Myringotomy/tubes No date: PAST SURGICAL HISTORY OF Comment: stents in ureter for kidney stones 08/04/14: PAST SURGICAL HISTORY OF Comment: lumbar pain injections. No date: TONSILLECTOMY PRIMARY/SECONDARY <AGE 13 Comment: Tonsillectomy PAST MEDICAL HISTORY: PAST MEDICAL HISTORY 05/23/2006: ABN GLUCOSE-ANTEPARTUM 05/23/2006: ASTHMA UNSPECIFIED 05/23/2006: Calculus of ureter No date: Callus of foot No date: Callus of foot 05/23/2006: COMMON MIGRAINE W/O MENTN INTRACT 08/20/2006: DEPRESSIVE DISORDER NEC Comment: 06/09 -Stable, no meds 05/23/2006: Family history of diabetes mellitus Comment: Mother, Father, Maternal Grandparents 05/23/2006: FAMILY HX DIABETES MELLITUS Comment: Mother, Father, Maternal Grandparents 06/05/2009: Fatty liver Comment: CT Scan 01/06, showed diffuse fatty liver. LFTs elevated in past, but 06/09 - normal 09/28/2006: GOITER NOS Comment: TSH normal 05/23/2006: Lumbago 05/23/2006: Mild intermittent asthma without complication Comment: Since age 11. No medication. Last attack > 10 years 05/23/2006: OBESITY NOS No date: Peripheral autonomic neuropathy due to diabetes mellitus (HCC) No date: PMH - PAST MEDICAL HISTORY OF Comment: kidney stones 05/23/2006: Polycystic ovaries 05/23/2006: Polycystic ovaries No date: Snoring 08/04/2014: Sprain of lumbar region 06/05/2009: Tobacco use disorder 06/05/2009: Type II or unspecified type diabetes mellitus without mention of complication, not stated as uncontrolled No date: Unspecified asthma(493.90) SUBJECTIVE: Pt report heavy menses and requests hysterectomy SOCIAL HISTORY: Social History Tobacco Use Smoking status: Former Packs/day: 0.30 Years: 3.00 Additional pack years: 0.00 Total pack years: 0.90 Types: Cigarettes Quit date: 09/10/2013 Years since quittin.5 Smokeless tobacco: Never Tobacco comments: uses E cigs Vaping Use Vaping Use: current everyday user Substances: Nicotine, Flavoring Devices: [employer] Substance Use Topics Alcohol use: No Drug use: No Allergies: Avelox [Moxifloxaci* Rash Doxy [Doxycycline] GI Upset Penicillins Other: See Comments Comment:Mother does not recall what the reaction was and was told that she cannot take it Prozac [Fluoxetine * Other: See Comments Comment:Mother had side effects from this Current Outpatient Medications on File Prior to Visit Medication Sig magnesium oxide (MAG-OX) 400 mg (241.3 mg magnesium) tablet Take 1 tablet by mouth two times a day. metFORMIN (GLUCOPHAGE) 1,000 mg tablet Take 1 tablet by mouth two times a day with meals. venlafaxine ER (EFFEXOR XR) 37.5 mg 24 hr capsule Take 1 capsule by mouth once daily. norethindrone (AYGESTIN) 5 mg tablet Take 1 tablet by mouth once daily. amitriptyline (ELAVIL) 50 mg tablet Take 1-2 tablets by mouth daily at bedtime. busPIRone HCl 30 mg tablet Take 1 tablet by mouth two times a day. simvastatin (ZOCOR) 40 mg tablet Take 1 tablet by mouth daily at bedtime. topiramate (TOPAMAX) 50 mg tablet Take 1 tablet by mouth two times a day. ZINC ORAL Take by mouth. cholecalciferol, vitamin D3, (VITAMIN D3 ORAL) Take by mouth. blood-glucose meter,mobile dev (HOLLY BLOOD GLUCOSE MONITOR) lyn albuterol HFA (PROAIR HFA) 90 mcg/actuation inhaler Inhale 2 Puffs as instructed every 4 hours as needed. omega-3 fatty acids (FISH OIL CONCENTRATE) 1,000 mg cap Take 1,000 mg by mouth once daily. HYDROcodone-acetaminophen (NORCO) 5-325 mg per tablet Take 5-325 tablets by mouth twice daily as needed. multivit-minerals/ferrous fum (MULTI VITAMIN ORAL) Take by mouth. TIZANIDINE HCL (ZANAFLEX ORAL) Take by mouth twice daily. propranolol (INDERAL) 40 mg tablet Take 0.5 tablets by mouth two times a day. No current facility-administered medications on file prior to visit. Pelvic US: RESULT: Uterus: -Size: 10.4 x 4.4 x 6.2 cm -Orientation: Retroverted -Endometrial echo complex: Evaluation of the endometrium was adequate. No endometrial abnormality. The endometrial echo complex measured 0.5 cm. -Cervix: Trace fluid in the cervical canal. -Adenomyosis assessment: There are no sonographic findings of adenomyosis. -Fibroids: There are no fibroids. Right Ovary: 3.3 x 3 x 3 cm, appreciated only on transabdominal imaging - Normal sonographic appearance. Doppler assessment of the ovarian vasculature was not performed. Left Ovary: 3.5 x 1.6 x 3 cm, , appreciated only on transabdominal imaging - Normal sonographic appearance. Doppler assessment of the ovarian vasculature was not performed. Free Fluid: No abnormal free fluid is present. Pap test 2020 normal EMB 01/12/24 benign OBJECTIVE: VITALS: BP 116/78 Pulse 86 Resp 16 Ht 158.1 cm (5' 2.25) Wt 91.6 kg (202 lb) LMP 03/08/2024 (Approximate) BMI 36.65 kg/m HEENT: Normocephalic, atraumatic, Mucus membranes moist without lesions. SKIN: No lesions. CHEST: Clear to auscultation. No wheezes or rales. Good air exchange. HEART: Regular rate and rhythm No S3 or S4. No gallops or rubs. BREAST: No masses, thickenings, skin changes, nipple discharge or axillary lymphadenopathy. BACK: Nontender with no CVA tenderness. ABDOMEN: Soft, non-tender, non-distended, no masses, no hepatosplenomegaly. LOWER EXTREMITIES: There was no pitting edema, no palpable cords and no skin changes. ASSESSMENT: DUB, menorrhagia PLAN: 1) Patient strongly desires hysterectomy. Discussed r/b/a TLH, BS, cystoscopy. The rationale for the proposed surgery was discussed in addition to risks, benefits, and alternatives. General pre- and post-operative care was reviewed. Questions were answered. After discussion, the patient indicated a desire to proceed with the planned surgery. Zheng Luna DO Medical Decision Making: Problems: Low: Stable chronic illness Moderate: 1+ chronic illnesses with change Risk: High: Decision on elective major surgery w/ risk factors Medical Decision Making Level: 4 - Moderate documented in this encounter [facility] 03-17-2024 Telephone encounter Note Called patient and scheduled as directed Carmen Oquendo [facility] 03-17-2024 Miscellaneous Notes Called patient and scheduled as directed Carmen Oquendo 1st attempt. Message left for patient to schedule first available with Dr. Tsai or Dr. Posadas. - low priority consultation. FACILITY ENVIRONMENTAL TECHNICIAN/LEUKOCYTOSIS/REF PROV MYRANDA KAUFFMANBRIANDA* Low priority consultation. Next new with me or Dr. Posadas. Jose Tsai DO Please review and advise. Patient was made aware of the results. Patient verbalizes understanding. Will route to hem/onc pss to get set up for consult Mariel Pruitt MA March 16, 2024 8:43 AM Please let patient know that her white blood count is even higher. I am going to refer her to hematology to see if this is problematic.. Magnesium level has shown no change. Please increase magnesium to twice daily. Liver functions are slightly improved. Still high. Kidney function okay. documented in this encounter [facility] 03-16-2024 Telephone encounter Note 1st attempt. Message left for patient to schedule first available with Dr. Tsai or Dr. Posadas. - low priority consultation. FACILITY ENVIRONMENTAL TECHNICIAN/LEUKOCYTOSIS/REF PROV MYRANDA DALLAS* [facility] Work Phone: 03-16-2024 Telephone encounter Note Low priority consultation. Next new with me or Dr. Posadas. Jose Tsai DO [facility] Work Phone: 03-16-2024 Telephone encounter Note Please review and advise. [facility] 03-16-2024 Telephone encounter Note Patient was made aware of the results. Patient verbalizes understanding. Will route to hem/onc pss to get set up for consult Mariel Pruitt MA March 16, 2024 8:43 AM [facility] 03-16-2024 Telephone encounter Note Please let patient know that her white blood count is even higher. I am going to refer her to hematology to see if this is problematic.. Magnesium level has shown no change. Please increase magnesium to twice daily. Liver functions are slightly improved. Still high. Kidney function okay. [facility] 03-15-2024 Instructions Myranda Dallas APRN.CNP - 03/15/2024 8:59 AM EDT 1) Labs today 2) Follow up in 6 months documented in this encounter [facility] 03-15-2024 Note HNO ID: [id number] Author: MYRANDA DALLAS APRN.CNP Service: ? Author Type: Clinical Nurse Specialist Type: Progress Notes Filed: 03/16/2024 08:21 Note Text: PRE-OPERATIVE ASSESSMENT Surgeon: Dr. Luna Type of surgery: Hysterectomy- laparoscopic Patient scheduled for surgery on April 15, 2024. Diagnosis:heavy menses AND polyp Consultation requested by Dr. Luna for an opinion regarding preop optimization. My final recommendations will be communicated back to the requesting physician by way of shared Medical record or letter to requesting physician via US mail. Patient presents with: Follow Up: 6 month HISTORY: DM. Hypomagnesia, elevated LFT, tobacco use- quit cigarette 10 years ago- vapes, depression, obesity, lumbar DDD Allergies: Avelox [Moxifloxaci* Rash Doxy [Doxycycline] GI Upset Penicillins Other: See Comments Comment:Mother does not recall what the reaction was and was told that she cannot take it Prozac [Fluoxetine * Other: See Comments Comment:Mother had side effects from this Current Outpatient Medications Medication Sig magnesium oxide (MAG-OX) 400 mg (241.3 mg magnesium) tablet Take 1 tablet by mouth once daily. metFORMIN (GLUCOPHAGE) 1,000 mg tablet Take 1 tablet by mouth two times a day with meals. venlafaxine ER (EFFEXOR XR) 37.5 mg 24 hr capsule Take 1 capsule by mouth once daily. norethindrone (AYGESTIN) 5 mg tablet Take 1 tablet by mouth once daily. amitriptyline (ELAVIL) 50 mg tablet Take 1-2 tablets by mouth daily at bedtime. busPIRone HCl 30 mg tablet Take 1 tablet by mouth two times a day. simvastatin (ZOCOR) 40 mg tablet Take 1 tablet by mouth daily at bedtime. topiramate (TOPAMAX) 50 mg tablet Take 1 tablet by mouth two times a day. propranolol (INDERAL) 40 mg tablet Take 0.5 tablets by mouth two times a day. ZINC ORAL Take by mouth. cholecalciferol, vitamin D3, (VITAMIN D3 ORAL) Take by mouth. blood-glucose meter,mobile dev (iPeen BLOOD GLUCOSE MONITOR) lyn albuterol HFA (PROAIR HFA) 90 mcg/actuation inhaler Inhale 2 Puffs as instructed every 4 hours as needed. omega-3 fatty acids (FISH OIL CONCENTRATE) 1,000 mg cap Take 1,000 mg by mouth once daily. HYDROcodone-acetaminophen (NORCO) 5-325 mg per tablet Take 5-325 tablets by mouth twice daily as needed. multivit-minerals/ferrous fum (MULTI VITAMIN ORAL) Take by mouth. TIZANIDINE HCL (ZANAFLEX ORAL) Take by mouth twice daily. No current facility-administered medications for this visit. MEDICATIONS AND ALLERGIES REVIEWED. 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 RESP: Denies cough, wheeze but does have asthma that she states is well controlled CARD: Patient denies any dyspnea, recent WA, angina, arrhythmias, or valvular disease, and Denies h/o DVT or PE. GI: + liver/hepatitis, Patient denies any history of IBD, IBS, colitis, colorectal cancer, or diarrheal states., does have chronic constipation , LFT slightly elevated. Stopped celebrex for this reason. : No history of disease. RENAL: Denies history of renal insufficiency. ENDO: no history of steroid use, + diabetes on oral agents with none, thyroid is enlarged HEME: patient denies bleeding, bruising easily, no history of anemia and no history of prior transfusion She has had a chronic leukocytosis of unknown etiology. PSYCHIATRIC: denies eating disorders, denies a history of abuse, +history of anxiety disorder , and +history of depression ANESTHESIA COMPLICATIONS: no reported complications Past Surgical History PAST SURGICAL HISTORY Procedure Laterality Date DELIVERY ONLY , low cervical COLONOSCOPY 08/28/2018 hemorrhoid banding LAPAROSCOPY SURG CHOLECYSTECTOMY Cholecystectomy, lap MYRINGOTOMY ASPIRAND/EUSTACHIAN TUBE NFLTJ ANES Myringotomy/tubes PAST SURGICAL HISTORY OF stents in ureter for kidney stones PAST SURGICAL HISTORY OF 08/04/14 lumbar pain injections. TONSILLECTOMY PRIMARY/SECONDARY Tonsillectomy PHYSICAL EXAM: BP 104/70 Pulse 62 Wt 92.1 kg (203 lb) LMP 03/08/2024 (Approximate) SpO2 95% BMI 37.13 kg/m? Physical Exam GENERAL: Healthy, alert, no distress, cooperative, Alert, Smiling SKIN: Skin color, texture, turgor normal. No rashes or lesions. HEENT: PERRL, EOMI, and normal dentition JVD: No jugulovenous distention, No carotid bruits, Carotid pulse normal contour, Supple CARDIAC: Normal S1 and S2; no rubs, murmurs, or gallops LUNGS: Lungs clear to auscultation, Good diaphragmatic excursion ABDOMEN: Abdomen soft, non-tender, BS normal, No masses or organomegaly EXTREMITIES: Extremities normal, no deformities, edema, clubbing (more content not included)... [facility] 03-15-2024 History of Present illness Narrative PRE-OPERATIVE ASSESSMENT Surgeon: Dr. Luna Type of surgery: Hysterectomy- laparoscopic Patient scheduled for surgery on April 15, 2024. Diagnosis:heavy menses & polyp Consultation requested by Dr. Luna for an opinion regarding preop optimization. My final recommendations will be communicated back to the requesting physician by way of shared Medical record or letter to requesting physician via [place] mail. Patient presents with: Follow Up: 6 month HISTORY: DM. Hypomagnesia, elevated LFT, tobacco use- quit cigarette 10 years ago- vapes, depression, obesity, lumbar DDD Allergies: Avelox [Moxifloxaci* Rash Doxy [Doxycycline] GI Upset Penicillins Other: See Comments Comment:Mother does not recall what the reaction was and was told that she cannot take it Prozac [Fluoxetine * Other: See Comments Comment:Mother had side effects from this Current Outpatient Medications Medication Sig magnesium oxide (MAG-OX) 400 mg (241.3 mg magnesium) tablet Take 1 tablet by mouth once daily. metFORMIN (GLUCOPHAGE) 1,000 mg tablet Take 1 tablet by mouth two times a day with meals. venlafaxine ER (EFFEXOR XR) 37.5 mg 24 hr capsule Take 1 capsule by mouth once daily. norethindrone (AYGESTIN) 5 mg tablet Take 1 tablet by mouth once daily. amitriptyline (ELAVIL) 50 mg tablet Take 1-2 tablets by mouth daily at bedtime. busPIRone HCl 30 mg tablet Take 1 tablet by mouth two times a day. simvastatin (ZOCOR) 40 mg tablet Take 1 tablet by mouth daily at bedtime. topiramate (TOPAMAX) 50 mg tablet Take 1 tablet by mouth two times a day. propranolol (INDERAL) 40 mg tablet Take 0.5 tablets by mouth two times a day. ZINC ORAL Take by mouth. cholecalciferol, vitamin D3, (VITAMIN D3 ORAL) Take by mouth. blood-glucose meter,mobile dev (iPeen BLOOD GLUCOSE MONITOR) lyn albuterol HFA (PROAIR HFA) 90 mcg/actuation inhaler Inhale 2 Puffs as instructed every 4 hours as needed. omega-3 fatty acids (FISH OIL CONCENTRATE) 1,000 mg cap Take 1,000 mg by mouth once daily. HYDROcodone-acetaminophen (NORCO) 5-325 mg per tablet Take 5-325 tablets by mouth twice daily as needed. multivit-minerals/ferrous fum (MULTI VITAMIN ORAL) Take by mouth. TIZANIDINE HCL (ZANAFLEX ORAL) Take by mouth twice daily. No current facility-administered medications for this visit. MEDICATIONS AND ALLERGIES REVIEWED. 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 RESP: Denies cough, wheeze but does have asthma that she states is well controlled CARD: Patient denies any dyspnea, recent WA, angina, arrhythmias, or valvular disease, and Denies h/o DVT or PE. GI: + liver/hepatitis, Patient denies any history of IBD, IBS, colitis, colorectal cancer, or diarrheal states., does have chronic constipation : No history of disease. RENAL: Denies history of renal insufficiency. ENDO: no history of steroid use, + diabetes on oral agents with none, thyroid is enlarged HEME: patient denies bleeding, bruising easily, no history of anemia and no history of prior transfusion PSYCHIATRIC: denies eating disorders, denies a history of abuse, +history of anxiety disorder , and +history of depression ANESTHESIA COMPLICATIONS: no reported complications Past Surgical History PAST SURGICAL HISTORY Procedure Laterality Date DELIVERY ONLY , low cervical COLONOSCOPY 08/28/2018 hemorrhoid banding LAPAROSCOPY SURG CHOLECYSTECTOMY Cholecystectomy, lap MYRINGOTOMY ASPIR&/EUSTACHIAN TUBE NFLTJ ANES Myringotomy/tubes PAST SURGICAL HISTORY OF stents in ureter for kidney stones PAST SURGICAL HISTORY OF 08/04/14 lumbar pain injections. TONSILLECTOMY PRIMARY/SECONDARY <AGE 13 Tonsillectomy PHYSICAL EXAM: BP 104/70 Pulse 62 Wt 92.1 kg (203 lb) LMP 03/08/2024 (Approximate) SpO2 95% BMI 37.13 kg/m Physical Exam GENERAL: Healthy, alert, no distress, cooperative, Alert, Smiling SKIN: Skin color, texture, turgor normal. No rashes or lesions. HEENT: PERRL, EOMI, and normal dentition JVD: No jugulovenous distention, No carotid bruits, Carotid pulse normal contour, Supple CARDIAC: Normal S1 and S2; no rubs, murmurs, or gallops LUNGS: Lungs clear to auscultation, Good diaphragmatic excursion ABDOMEN: Abdomen soft, non-tender, BS normal, No masses or organomegaly EXTREMITIES: Extremities normal, no deformities, edema, clubbing or skin discoloration. Good capillary refill., No ulcers NEURO: Gait normal. Reflexes normal and symmetric. Sensation grossly intact, Cranial nerves II-XII intact PULSES: 2+ radial, 2+ carotid : not examined/not indicated. EKG: Not indicated --------- IMPRESSION: Optimized for hysterectomy Ana Hernandez is a 44 year old female. functional class of IV History: There is no known pertinent medical condition which may affect lupis-operative course Patient has no clinical predictors of increased perioperative cardiovascular risk. Patient is scheduled for a intermediate/high-risk procedure. RECOMMENDATIONS: Take the following medications the morning of surgery with a small sip of water: propranolol, topiramate, buspirone To Stop NSAID's (e.g. Motrin,Aleve,Arthrotec etc) 7 days before surgery. To Stop Aspirin 7 days before surgery. This patient is optimally prepared for surgery. Discussed treatment plan and patient voices understanding. Patient's questions answered appropriately. Medications and potential side effects were discussed and patient voices understanding. Return to the office as scheduled or as needed for worsening/no improvement. Myranda Dallas APRN.KIMO documented in this encounter [facility] 02-27-2024 Telephone encounter Note Patient was made aware of the results. Patient verbalizes understanding. Patient is ok with metformin increase Mariel Pruitt Ma [facility] 02-27-2024 Miscellaneous Notes Patient was made aware of the results. Patient verbalizes understanding. Patient is ok with metformin increase Mariel Pruitt Ma Please check with patient to see if she thinks she could increase metformin to 1000 mg twice a day with meals. Her hemoglobin A1c is 7.5%, that is not very good control for diabetic. Urine for microalbumin creatinine ratio showed no effect of diabetes on the kidneys Liver function test are slightly elevated. She will need to stop Celebrex. I would stop it permanently. It is not recommended to continue on nonsteroidal anti-inflammatories with abnormal liver function. Finally, her magnesium is low at 1.6. I would like her to start magnesium oxide 420 mg daily. That will replace her magnesium. Magnesium is needed for contraction of cardiac muscles. Let me know what she decides about Metformin. documented in this encounter [facility] 02-27-2024 Telephone encounter Note Please check with patient to see if she thinks she could increase metformin to 1000 mg twice a day with meals. Her hemoglobin A1c is 7.5%, that is not very good control for diabetic. Urine for microalbumin creatinine ratio showed no effect of diabetes on the kidneys Liver function test are slightly elevated. She will need to stop Celebrex. I would stop it permanently. It is not recommended to continue on nonsteroidal anti-inflammatories with abnormal liver function. Finally, her magnesium is low at 1.6. I would like her to start magnesium oxide 420 mg daily. That will replace her magnesium. Magnesium is needed for contraction of cardiac muscles. Let me know what she decides about Metformin. [facility] 02-27-2024 Telephone encounter Note Please check with patient to see if she thinks she could increase metformin to 1000 mg twice a day with meals. Her hemoglobin A1c is 7.5%, that is not very good control for diabetic. Urine for microalbumin creatinine ratio showed no effect of diabetes on the kidneys Liver function test are slightly elevated. She will need to stop Celebrex. I would stop it permanently. It is not recommended to continue on nonsteroidal anti-inflammatories with abnormal liver function. Finally, her magnesium is low at 1.6. I would like her to start magnesium oxide 420 mg daily. That will replace her magnesium. Magnesium is needed for contraction of cardiac muscles. Let me know what she decides about Metformin. [facility] 02-27-2024 Miscellaneous Notes Please check with patient to see if she thinks she could increase metformin to 1000 mg twice a day with meals. Her hemoglobin A1c is 7.5%, that is not very good control for diabetic. Urine for microalbumin creatinine ratio showed no effect of diabetes on the kidneys Liver function test are slightly elevated. She will need to stop Celebrex. I would stop it permanently. It is not recommended to continue on nonsteroidal anti-inflammatories with abnormal liver function. Finally, her magnesium is low at 1.6. I would like her to start magnesium oxide 420 mg daily. That will replace her magnesium. Magnesium is needed for contraction of cardiac muscles. Let me know what she decides about Metformin. Spoke with patient and scheduled on 02/26/24 with Anuradha Please help pt schedule pre-op appointment for upcoming kitchen bath designer procedure. documented in this encounter [facility] 02-26-2024 Miscellaneous Notes Addended by: MYRANDA DALLAS on: 02/26/2024 08:50 AM Modules accepted: Orders documented in this encounter [facility] 02-26-2024 Note Addended by: MYRANDA DALLAS on: 02/26/2024 08:50 AM Modules accepted: Orders [facility] 02-26-2024 Instructions Myranda Dallas APRN.CNS - 02/26/2024 8:47 AM EDT 1) Take the following medications the morning of surgery with a small sip of water: topiramate, buspirone, propranolol, venlafaxine, (no metformin) 2) To Stop NSAID's (e.g. Motrin,Aleve,Arthrotec etc) 7 days before surgery. Fish oil & celebrex 3) Get labs today 4) Follow up with Jayjay as scheduled documented in this encounter [facility] 02-26-2024 Note HNO ID: [id number] Author: MYRANDA DALLAS APRN.CNS Service: ? Author Type: Clinical Nurse Specialist Type: Progress Notes Filed: 02/27/2024 12:01 Note Text: PRE-OPERATIVE ASSESSMENT Surgeon: Dr. Luna Type of surgery: Lap. hysterectomy Patient scheduled for surgery on pending. Diagnosis:irregular and heavy bleeding irregular and heavy bleeding Consultation requested by Dr. Luna for an opinion regarding pre-op. My final recommendations will be communicated back to the requesting physician by way of shared Medical record or letter to requesting physician via [place] mail. Patient presents with: Pre-Op Exam HISTORY: DM, tobacco use, lumbar DDD, depression, obesity Allergies: Avelox [Moxifloxaci* Rash Doxy [Doxycycline] GI Upset Penicillins Other: See Comments Comment:Mother does not recall what the reaction was and was told that she cannot take it Prozac [Fluoxetine * Other: See Comments Comment:Mother had side effects from this Current Outpatient Medications Medication Sig norethindrone (AYGESTIN) 5 mg tablet Take 1 tablet by mouth once daily. metFORMIN (GLUCOPHAGE) 850 mg tablet Take 1 tablet by mouth two times a day with meals. amitriptyline (ELAVIL) 50 mg tablet Take 1-2 tablets by mouth daily at bedtime. busPIRone HCl 30 mg tablet Take 1 tablet by mouth two times a day. desvenlafaxine ER (PRISTIQ) 25 mg 24 hr tablet Take 1 tablet by mouth once daily. simvastatin (ZOCOR) 40 mg tablet Take 1 tablet by mouth daily at bedtime. topiramate (TOPAMAX) 50 mg tablet Take 1 tablet by mouth two times a day. propranolol (INDERAL) 40 mg tablet Take 0.5 tablets by mouth two times a day. ZINC ORAL Take by mouth. cholecalciferol, vitamin D3, (VITAMIN D3 ORAL) Take by mouth. albuterol HFA (PROAIR HFA) 90 mcg/actuation inhaler Inhale 2 Puffs as instructed every 4 hours as needed. omega-3 fatty acids (FISH OIL CONCENTRATE) 1,000 mg cap Take 1,000 mg by mouth once daily. HYDROcodone-acetaminophen (NORCO) 5-325 mg per tablet Take 5-325 tablets by mouth twice daily as needed. multivit-minerals/ferrous fum (MULTI VITAMIN ORAL) Take by mouth. celecoxib (CELEBREX) 200 mg capsule Take 200 mg by mouth once daily. TIZANIDINE HCL (ZANAFLEX ORAL) Take by mouth twice daily. blood-glucose meter,mobile dev (HOLLY BLOOD GLUCOSE MONITOR) lyn No current facility-administered medications for this visit. MEDICATIONS AND ALLERGIES REVIEWED. 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 RESP: + asthma CARD: Patient denies any dyspnea, recent WA, angina, arrhythmias, or valvular disease, and Denies h/o DVT or PE. GI: Patient denies any history of GERD, PUD, liver problems or ETOH abuse., Patient denies any history of IBD, IBS, colitis, colorectal cancer, or diarrheal states. : No history of disease. RENAL: Denies history of renal insufficiency. ENDO: + diabetes diet controlled with up-to date with routine eye exam HEME: patient denies bleeding, bruising easily, no history of anemia and no history of prior transfusion PSYCHIATRIC: +history of anxiety disorder and +history of depression ANESTHESIA COMPLICATIONS: no reported complications Past Surgical History PAST SURGICAL HISTORY Procedure Laterality Date DELIVERY ONLY , low cervical COLONOSCOPY 08/28/2018 hemorrhoid banding LAPAROSCOPY SURG CHOLECYSTECTOMY Cholecystectomy, lap MYRINGOTOMY ASPIRAND/EUSTACHIAN TUBE NFLTJ ANES Myringotomy/tubes PAST SURGICAL HISTORY OF stents in ureter for kidney stones PAST SURGICAL HISTORY OF 08/04/14 lumbar pain injections. TONSILLECTOMY PRIMARY/SECONDARY Tonsillectomy PHYSICAL EXAM: BP 112/72 Pulse 81 Resp 16 Wt 92.5 kg (204 lb) LMP 12/12/2023 (Exact Date) SpO2 97% BMI 37.31 kg/m? Physical Exam GENERAL: Healthy, alert, no distress, cooperative, Smiling SKIN: Skin color, texture, turgor normal. No rashes or lesions. HEENT: PERRL, EOMI, and normal dentition JVD: No jugulovenous distention, No carotid bruits, Carotid pulse normal contour, Supple CARDIAC: Normal S1 and S2; no rubs, murmurs, or gallops LUNGS: Lungs clear to auscultation, Good diaphragmatic excursion ABDOMEN: Abdomen soft, non-tender, BS normal, No masses or organomegaly EXTREMITIES: Extremities normal, no deformities, edema, clubbing or skin discoloration. Good capillary refill., No ulcers NEURO: Gait normal. Reflexes normal and symmetric. Sensation grossly intact PULSES: 2+ radial, 2+ carotid : not examined/not indicated. EKG: Not indicated --------- (more content not included)... [facility] 02-26-2024 History of Present illness Narrative PRE-OPERATIVE ASSESSMENT Surgeon: Dr. Luna Type of surgery: Lap. hysterectomy Patient scheduled for surgery on pending. Diagnosis:irregular and heavy bleeding irregular and heavy bleeding Consultation requested by Dr. Luna for an opinion regarding pre-op. My final recommendations will be communicated back to the requesting physician by way of shared Medical record or letter to requesting physician via [place] mail. Patient presents with: Pre-Op Exam HISTORY: DM, tobacco use, lumbar DDD, depression, obesity Allergies: Avelox [Moxifloxaci* Rash Doxy [Doxycycline] GI Upset Penicillins Other: See Comments Comment:Mother does not recall what the reaction was and was told that she cannot take it Prozac [Fluoxetine * Other: See Comments Comment:Mother had side effects from this Current Outpatient Medications Medication Sig norethindrone (AYGESTIN) 5 mg tablet Take 1 tablet by mouth once daily. metFORMIN (GLUCOPHAGE) 850 mg tablet Take 1 tablet by mouth two times a day with meals. amitriptyline (ELAVIL) 50 mg tablet Take 1-2 tablets by mouth daily at bedtime. busPIRone HCl 30 mg tablet Take 1 tablet by mouth two times a day. desvenlafaxine ER (PRISTIQ) 25 mg 24 hr tablet Take 1 tablet by mouth once daily. simvastatin (ZOCOR) 40 mg tablet Take 1 tablet by mouth daily at bedtime. topiramate (TOPAMAX) 50 mg tablet Take 1 tablet by mouth two times a day. propranolol (INDERAL) 40 mg tablet Take 0.5 tablets by mouth two times a day. ZINC ORAL Take by mouth. cholecalciferol, vitamin D3, (VITAMIN D3 ORAL) Take by mouth. albuterol HFA (PROAIR HFA) 90 mcg/actuation inhaler Inhale 2 Puffs as instructed every 4 hours as needed. omega-3 fatty acids (FISH OIL CONCENTRATE) 1,000 mg cap Take 1,000 mg by mouth once daily. HYDROcodone-acetaminophen (NORCO) 5-325 mg per tablet Take 5-325 tablets by mouth twice daily as needed. multivit-minerals/ferrous fum (MULTI VITAMIN ORAL) Take by mouth. celecoxib (CELEBREX) 200 mg capsule Take 200 mg by mouth once daily. TIZANIDINE HCL (ZANAFLEX ORAL) Take by mouth twice daily. blood-glucose meter,mobile dev (HOLLY BLOOD GLUCOSE MONITOR) lyn No current facility-administered medications for this visit. MEDICATIONS AND ALLERGIES REVIEWED. 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 RESP: + asthma CARD: Patient denies any dyspnea, recent WA, angina, arrhythmias, or valvular disease, and Denies h/o DVT or PE. GI: Patient denies any history of GERD, PUD, liver problems or ETOH abuse., Patient denies any history of IBD, IBS, colitis, colorectal cancer, or diarrheal states. : No history of disease. RENAL: Denies history of renal insufficiency. ENDO: + diabetes diet controlled with up-to date with routine eye exam HEME: patient denies bleeding, bruising easily, no history of anemia and no history of prior transfusion PSYCHIATRIC: +history of anxiety disorder and +history of depression ANESTHESIA COMPLICATIONS: no reported complications Past Surgical History PAST SURGICAL HISTORY Procedure Laterality Date DELIVERY ONLY , low cervical COLONOSCOPY 08/28/2018 hemorrhoid banding LAPAROSCOPY SURG CHOLECYSTECTOMY Cholecystectomy, lap MYRINGOTOMY ASPIR&/EUSTACHIAN TUBE NFLTJ ANES Myringotomy/tubes PAST SURGICAL HISTORY OF stents in ureter for kidney stones PAST SURGICAL HISTORY OF 08/04/14 lumbar pain injections. TONSILLECTOMY PRIMARY/SECONDARY <AGE 13 Tonsillectomy PHYSICAL EXAM: BP 112/72 Pulse 81 Resp 16 Wt 92.5 kg (204 lb) LMP 12/12/2023 (Exact Date) SpO2 97% BMI 37.31 kg/m Physical Exam GENERAL: Healthy, alert, no distress, cooperative, Smiling SKIN: Skin color, texture, turgor normal. No rashes or lesions. HEENT: PERRL, EOMI, and normal dentition JVD: No jugulovenous distention, No carotid bruits, Carotid pulse normal contour, Supple CARDIAC: Normal S1 and S2; no rubs, murmurs, or gallops LUNGS: Lungs clear to auscultation, Good diaphragmatic excursion ABDOMEN: Abdomen soft, non-tender, BS normal, No masses or organomegaly EXTREMITIES: Extremities normal, no deformities, edema, clubbing or skin discoloration. Good capillary refill., No ulcers NEURO: Gait normal. Reflexes normal and symmetric. Sensation grossly intact PULSES: 2+ radial, 2+ carotid : not examined/not indicated. EKG: Not indicated --------- IMPRESSION: Myranda Dallas APRN.CNS Ana Hernandez is a 44 year old female. functional class of History: Diabetes - Check HgA1c Patient has no clinical predictors of increased perioperative cardiovascular risk. Patient is scheduled for a intermediate-risk procedure. RECOMMENDATIONS: Take the following medications the morning of surgery with a small sip of water: topiramate, buspirone, propranolol, venlafaxine To Stop NSAID's (e.g. Motrin,Aleve,Arthrotec etc) 7 days before surgery. Fish oil & celebrex To Stop Aspirin 7 days before surgery. Optimization pending: LABS Discussed treatment plan and patient voices understanding. Patient's questions answered appropriately. Medications and potential side effects were discussed and patient voices understanding. Return to the office as scheduled or as needed for worsening/no improvement. Myranda Dallas APRN.EVY documented in this encounter [facility] 02-24-2024 Telephone encounter Note Spoke with patient and scheduled on 02/26/24 with Anuradha [facility] 02-24-2024 Telephone encounter Note Please help pt schedule pre-op appointment for upcoming kitchen bath designer procedure. [facility] 02-23-2024 Note HNO ID: [id number] Author: ZHENG LUNA MD Service: ? Author Type: Physician Type: Progress Notes Filed: 02/23/2024 09:53 Note Text: DATE OF SERVICE: 02/23/2024 PROBLEM: Ana Hernandez presents for postop visit. SURGERY AND DATE: 02/05/2024 EUA, cervical dilation with attempted hysteroscopy PATHOLOGY: N/A SUBJECTIVE/INTERVAL HISTORY: Ana Hernandez is doing well. No pain, fevers, chills, vaginal discharge or bleeding, nausea or vomiting. OBJECTIVE: VITALS: BP 108/70 Wt 92.4 kg (203 lb 12.8 oz) LMP 12/12/2023 (Exact Date) BMI 37.28 kg/m? ABDOMEN: Non distended. LOWER EXTREMITIES: No pitting edema. ASSESSMENT: post op PLAN: Patient requesting hysterectomy given irregular and heavy bleeding. She understands possible polyp and risk for hyperplasia or malignancy. She understands risk with hysterectomy. She is not interested in medical management at this time of DUB. Discussed possible lupis menopause. Will need medical clearance for hysterectomy and discussed this with patient. Surgery sheet completed for TLH, BS, cysto. Zheng Luna DO [facility] 02-23-2024 History of Present illness Narrative DATE OF SERVICE: 02/23/2024 PROBLEM: Ana Hernandez presents for postop visit. SURGERY & DATE: 02/05/2024 EUA, cervical dilation with attempted hysteroscopy PATHOLOGY: N/A SUBJECTIVE/INTERVAL HISTORY: Ana Hernandez is doing well. No pain, fevers, chills, vaginal discharge or bleeding, nausea or vomiting. OBJECTIVE: VITALS: BP 108/70 Wt 92.4 kg (203 lb 12.8 oz) LMP 12/12/2023 (Exact Date) BMI 37.28 kg/m ABDOMEN: Non distended. LOWER EXTREMITIES: No pitting edema. ASSESSMENT: post op PLAN: Patient requesting hysterectomy given irregular and heavy bleeding. She understands possible polyp and risk for hyperplasia or malignancy. She understands risk with hysterectomy. She is not interested in medical management at this time of DUB. Discussed possible lupis menopause. Will need medical clearance for hysterectomy and discussed this with patient. Surgery sheet completed for TLH, BS, cysto. Zheng Luna DO documented in this encounter [facility] 02-11-2024 Note Formatting of this n ote might be different from the original. February 11, 2024 PID: [id number] Ana Hernandez [address] [place] [id number] Dear Ms. Hernandez, We are pleased to inform you that the results of your recent breast imaging exam on 02/10/2024 are normal. Early detection of cancer is very important. We also understand recommendations regarding breast cancer screening are controversial. Please discuss with your primary care provider which strategy is best for you and whether a mammogram is right for you. Your imaging studies and report will be kept on file at [facility] as part of your permanent medical record and are available for your continuing care. Thank you for allowing us to help in meeting your health care needs. Sincerely, Dr. Gutierrez Interpreting Radiologist [facility] (Normal over 40) [facility] 02-11-2024 Miscellaneous Notes February 11, 2024 PID: [id number] Ana Hernandez [address] [place] [id number] Dear Ms. Zambranodek, We are pleased to inform you that the results of your recent breast imaging exam on 02/10/2024 are normal. Early detection of cancer is very important. We also understand recommendations regarding breast cancer screening are controversial. Please discuss with your primary care provider which strategy is best for you and whether a mammogram is right for you. Your imaging studies and report will be kept on file at [facility] as part of your permanent medical record and are available for your continuing care. Thank you for allowing us to help in meeting your health care needs. Sincerely, Dr. Gutierrez Interpreting Radiologist [facility] (Normal over 40) documented in this encounter [facility] 02-10-2024 History of Present illness Narrative Radiology Service Progress Note PATIENT NAME: Ana Hernandez DATE OF SERVICE: February 10, 2024 TIME: 1:03 PM PATIENT IDENTITY VERIFICATION COMPLETED USING TWO (2) IDENTIFIERS: Name and Date of confirmed by patient verbally. FALL SCREENING: Has the patient had 2 falls in the last year or 1 fall with injury or currently using an Ambulatory Assistive Device (Walker, Cane, Wheelchair, Crutches, etc.)? No PATIENT GENDER DATA: Female. status: : No status: NO. PATIENT RELEVANT IMPLANT DATA REVIEWED: Not Applicable PATIENT PRESENTS WITH AN IMPLANTABLE OR ATTACHED FINAL CANOE INSPECTOR: No RADIOLOGY DEPARTMENT: Mammography PERIPHERAL IV DATA: Not applicable SIGNED BY: Rufina Hannon February 10, 2024 1:03 PM documented in this encounter [facility] 01-23-2024 History and physical note DATE OF SERVICE: January 23, 2024 PROBLEM: menorrhagia, endometrial polyp DIAGNOSIS: as above PAST SURGICAL HISTORY: PAST SURGICAL HISTORY Procedure Laterality Date DELIVERY ONLY , low cervical COLONOSCOPY 08/28/2018 hemorrhoid banding LAPAROSCOPY SURG CHOLECYSTECTOMY Cholecystectomy, lap MYRINGOTOMY ASPIR&/EUSTACHIAN TUBE NFLTJ ANES Myringotomy/tubes PAST SURGICAL HISTORY OF stents in ureter for kidney stones PAST SURGICAL HISTORY OF 08/04/14 lumbar pain injections. 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 MEDICAL HISTORY: PAST MEDICAL HISTORY Diagnosis Date ABN GLUCOSE-ANTEPARTUM 05/23/2006 ASTHMA UNSPECIFIED 05/23/2006 Calculus of ureter 05/23/2006 Callus of foot Callus of foot COMMON MIGRAINE W/O MENTN INTRACT 05/23/2006 DEPRESSIVE DISORDER NEC 08/20/200606/09 -Stable, no meds Family history of diabetes mellitus 05/23/2006 Mother, Father, Maternal Grandparents FAMILY HX DIABETES MELLITUS 05/23/2006 Mother, Father, Maternal Grandparents Fatty liver 06/05/2009 CT Scan 01/06, showed diffuse fatty liver. LFTs elevated in past, but 06/09 - normal GOITER NOS 09/28/2006 TSH normal Lumbago 05/23/2006 Mild intermittent asthma without complication 05/23/2006 Since age 11. No medication. Last attack > 10 years OBESITY NOS 05/23/2006 Peripheral autonomic neuropathy due to diabetes mellitus (HCC) PMH - PAST MEDICAL HISTORY OF kidney stones Polycystic ovaries 05/23/2006 Polycystic ovaries 05/23/2006 Snoring Sprain of lumbar region 08/04/2014 Tobacco use disorder 06/05/2009 Type II or unspecified type diabetes mellitus without mention of complication, not stated as uncontrolled 06/05/2009 Unspecified asthma(493.90) SUBJECTIVE: patient doing well today and offers no complaints. H/o menorrhagia with irregular cycle. SOCIAL HISTORY: Social History Tobacco Use Smoking status: Former Packs/day: 0.30 Years: 3.00 Additional pack years: 0.00 Total pack years: 0.90 Types: Cigarettes Quit date: 09/10/2013 Years since quittin.3 Smokeless tobacco: Never Tobacco comments: uses E cigs Vaping Use Vaping Use: current everyday user Substances: Nicotine, Flavoring Devices: Ref[employer]yme Labsble tank Substance Use Topics Alcohol use: No Drug use: No BUSINESS APPLICATIONS ANALYST HISTORY: EMB: FINAL DIAGNOSIS A. Endometrium, biopsy: - Strips and fragments of proliferative endometrium. - Fragments of benign endocervical glands and tissue. Diagnosis Comment Some of the fragments are suggestive of an endometrial polyp with focal ischemia. Correlation is advised. Pelvic US: RESULT: Uterus: -Size: 10.4 x 4.4 x 6.2 cm -Orientation: Retroverted -Endometrial echo complex: Evaluation of the endometrium was adequate. No endometrial abnormality. The endometrial echo complex measured 0.5 cm. -Cervix: Trace fluid in the cervical canal. -Adenomyosis assessment: There are no sonographic findings of adenomyosis. -Fibroids: There are no fibroids. Right Ovary: 3.3 x 3 x 3 cm, appreciated only on transabdominal imaging - Normal sonographic appearance. Doppler assessment of the ovarian vasculature was not performed. Left Ovary: 3.5 x 1.6 x 3 cm, , appreciated only on transabdominal imaging - Normal sonographic appearance. Doppler assessment of the ovarian vasculature was not performed. Free Fluid: No abnormal free fluid is present. ALLERGIES Allergen Reactions Avelox [Moxifloxaci* Rash Doxy [Doxycycline] GI Upset Penicillins Other: See Comments Mother does not recall what the reaction was and was told that she cannot take it Prozac [Fluoxetine * Other: See Comments Mother had side effects from this Current Outpatient Medications on File Prior to Visit Medication Sig norethindrone (AYGESTIN) 5 mg tablet Take 1 tablet by mouth once daily. metFORMIN (GLUCOPHAGE) 850 mg tablet Take 1 tablet by mouth two times a day with meals. amitriptyline (ELAVIL) 50 mg tablet Take 1-2 tablets by mouth daily at bedtime. busPIRone HCl 30 mg tablet Take 1 tablet by mouth two times a day. desvenlafaxine ER (PRISTIQ) 25 mg 24 hr tablet Take 1 tablet by mouth once daily. simvastatin (ZOCOR) 40 mg tablet Take 1 tablet by mouth daily at bedtime. topiramate (TOPAMAX) 50 mg tablet Take 1 tablet by mouth two times a day. propranolol (INDERAL) 40 mg tablet Take 0.5 tablets by mouth two times a day. ZINC ORAL Take by mouth. cholecalciferol, vitamin D3, (VITAMIN D3 ORAL) Take by mouth. blood-glucose meter,mobile dev (iPeen BLOOD GLUCOSE MONITOR) lyn albuterol HFA (PROAIR HFA) 90 mcg/actuation inhaler Inhale 2 Puffs as instructed every 4 hours as needed. omega-3 fatty acids (FISH OIL CONCENTRATE) 1,000 mg cap Take 1,000 mg by mouth once daily. HYDROcodone-acetaminophen (NORCO) 5-325 mg per tablet Take 5-325 tablets by mouth twice daily as needed. multivit-minerals/ferrous fum (MULTI VITAMIN ORAL) Take by mouth. celecoxib (CELEBREX) 200 mg capsule Take 200 mg by mouth once daily. TIZANIDINE HCL (ZANAFLEX ORAL) Take by mouth twice daily. No current facility-administered medications on file prior to visit. OBJECTIVE: VITALS: BP 116/80 Pulse 78 Resp 16 Ht 5' 2 (1.575 m) Wt 207 lb (93.9 kg) LMP 12/12/2023 (Exact Date) BMI 37.86 kg/m HEENT: Normocephalic, atraumatic, Mucus membranes moist without lesions. SKIN: No lesions. CHEST: No increased respiratory effort. HEART: Regular rate. BACK: Nontender. ABDOMEN: Non-distended. LOWER EXTREMITIES: There was no pitting edema. ASSESSMENT: pre op, menorrhagia with irregular cycle, endometrial polyp PLAN: 1) Discussed hysteroscopy, D&C, polypectomy in detail. Discussed there may not be a polyp at time of surgery. Discussed progesterone IUD including r/b/a and patient declines IUD. The rationale for the proposed surgery was discussed in addition to risks, benefits, and alternatives. General pre- and post-operative care was reviewed. Questions were answered. After discussion, the patient indicated a desire to proceed with the planned surgery. Zheng Luna DO Medical Decision Making: Problems: Moderate: New problem with uncertain prognosis Risk: Moderate: Decision on minor surgery w/ risk factors Medical Decision Making Level: 4 - Moderate [facility] 01-23-2024 History and physical note DATE OF SERVICE: January 23, 2024 PROBLEM: menorrhagia, endometrial polyp DIAGNOSIS: as above PAST SURGICAL HISTORY: PAST SURGICAL HISTORY Procedure Laterality Date DELIVERY ONLY , low cervical COLONOSCOPY 08/28/2018 hemorrhoid banding LAPAROSCOPY SURG CHOLECYSTECTOMY Cholecystectomy, lap MYRINGOTOMY ASPIR&/EUSTACHIAN TUBE NFLTJ ANES Myringotomy/tubes PAST SURGICAL HISTORY OF stents in ureter for kidney stones PAST SURGICAL HISTORY OF 08/04/14 lumbar pain injections. TONSILLECTOMY PRIMARY/SECONDARY <AGE 13 Tonsillectomy PAST MEDICAL HISTORY: PAST MEDICAL HISTORY Diagnosis Date ABN GLUCOSE-ANTEPARTUM 05/23/2006 ASTHMA UNSPECIFIED 05/23/2006 Calculus of ureter 05/23/2006 Callus of foot Callus of foot COMMON MIGRAINE W/O MENTN INTRACT 05/23/2006 DEPRESSIVE DISORDER NEC 08/20/200606/09 -Stable, no meds Family history of diabetes mellitus 05/23/2006 Mother, Father, Maternal Grandparents FAMILY HX DIABETES MELLITUS 05/23/2006 Mother, Father, Maternal Grandparents Fatty liver 06/05/2009 CT Scan 01/06, showed diffuse fatty liver. LFTs elevated in past, but 06/09 - normal GOITER NOS 09/28/2006 TSH normal Lumbago 05/23/2006 Mild intermittent asthma without complication 05/23/2006 Since age 11. No medication. Last attack > 10 years OBESITY NOS 05/23/2006 Peripheral autonomic neuropathy due to diabetes mellitus (HCC) PMH - PAST MEDICAL HISTORY OF kidney stones Polycystic ovaries 05/23/2006 Polycystic ovaries 05/23/2006 Snoring Sprain of lumbar region 08/04/2014 Tobacco use disorder 06/05/2009 Type II or unspecified type diabetes mellitus without mention of complication, not stated as uncontrolled 06/05/2009 Unspecified asthma(493.90) SUBJECTIVE: patient doing well today and offers no complaints. H/o menorrhagia with irregular cycle. SOCIAL HISTORY: Social History Tobacco Use Smoking status: Former Packs/day: 0.30 Years: 3.00 Additional pack years: 0.00 Total pack years: 0.90 Types: Cigarettes Quit date: 09/10/2013 Years since quittin.3 Smokeless tobacco: Never Tobacco comments: uses E cigs Vaping Use Vaping Use: current everyday user Substances: Nicotine, Flavoring Devices: Refillable tank Substance Use Topics Alcohol use: No Drug use: No BUSINESS APPLICATIONS ANALYST HISTORY: EMB: FINAL DIAGNOSIS A. Endometrium, biopsy: - Strips and fragments of proliferative endometrium. - Fragments of benign endocervical glands and tissue. Diagnosis Comment Some of the fragments are suggestive of an endometrial polyp with focal ischemia. Correlation is advised. Pelvic US: RESULT: Uterus: -Size: 10.4 x 4.4 x 6.2 cm -Orientation: Retroverted -Endometrial echo complex: Evaluation of the endometrium was adequate. No endometrial abnormality. The endometrial echo complex measured 0.5 cm. -Cervix: Trace fluid in the cervical canal. -Adenomyosis assessment: There are no sonographic findings of adenomyosis. -Fibroids: There are no fibroids. Right Ovary: 3.3 x 3 x 3 cm, appreciated only on transabdominal imaging - Normal sonographic appearance. Doppler assessment of the ovarian vasculature was not performed. Left Ovary: 3.5 x 1.6 x 3 cm, , appreciated only on transabdominal imaging - Normal sonographic appearance. Doppler assessment of the ovarian vasculature was not performed. Free Fluid: No abnormal free fluid is present. ALLERGIES Allergen Reactions Avelox [Moxifloxaci* Rash Doxy [Doxycycline] GI Upset Penicillins Other: See Comments Mother does not recall what the reaction was and was told that she cannot take it Prozac [Fluoxetine * Other: See Comments Mother had side effects from this Current Outpatient Medications on File Prior to Visit Medication Sig norethindrone (AYGESTIN) 5 mg tablet Take 1 tablet by mouth once daily. metFORMIN (GLUCOPHAGE) 850 mg tablet Take 1 tablet by mouth two times a day with meals. amitriptyline (ELAVIL) 50 mg tablet Take 1-2 tablets by mouth daily at bedtime. busPIRone HCl 30 mg tablet Take 1 tablet by mouth two times a day. desvenlafaxine ER (PRISTIQ) 25 mg 24 hr tablet Take 1 tablet by mouth once daily. simvastatin (ZOCOR) 40 mg tablet Take 1 tablet by mouth daily at bedtime. topiramate (TOPAMAX) 50 mg tablet Take 1 tablet by mouth two times a day. propranolol (INDERAL) 40 mg tablet Take 0.5 tablets by mouth two times a day. ZINC ORAL Take by mouth. cholecalciferol, vitamin D3, (VITAMIN D3 ORAL) Take by mouth. blood-glucose meter,mobile dev (iPeen BLOOD GLUCOSE MONITOR) lyn albuterol HFA (PROAIR HFA) 90 mcg/actuation inhaler Inhale 2 Puffs as instructed every 4 hours as needed. omega-3 fatty acids (FISH OIL CONCENTRATE) 1,000 mg cap Take 1,000 mg by mouth once daily. HYDROcodone-acetaminophen (NORCO) 5-325 mg per tablet Take 5-325 tablets by mouth twice daily as needed. multivit-minerals/ferrous fum (MULTI VITAMIN ORAL) Take by mouth. celecoxib (CELEBREX) 200 mg capsule Take 200 mg by mouth once daily. TIZANIDINE HCL (ZANAFLEX ORAL) Take by mouth twice daily. No current facility-administered medications on file prior to visit. OBJECTIVE: VITALS: BP 116/80 Pulse 78 Resp 16 Ht 5' 2 (1.575 m) Wt 207 lb (93.9 kg) LMP 12/12/2023 (Exact Date) BMI 37.86 kg/m HEENT: Normocephalic, atraumatic, Mucus membranes moist without lesions. SKIN: No lesions. CHEST: No increased respiratory effort. HEART: Regular rate. BACK: Nontender. ABDOMEN: Non-distended. LOWER EXTREMITIES: There was no pitting edema. ASSESSMENT: pre op, menorrhagia with irregular cycle, endometrial polyp PLAN: 1) Discussed hysteroscopy, D&C, polypectomy in detail. Discussed there may not be a polyp at time of surgery. Discussed progesterone IUD including r/b/a and patient declines IUD. The rationale for the proposed surgery was discussed in addition to risks, benefits, and alternatives. General pre- and post-operative care was reviewed. Questions were answered. After discussion, the patient indicated a desire to proceed with the planned surgery. Zheng Luna DO Medical Decision Making: Problems: Moderate: New problem with uncertain prognosis Risk: Moderate: Decision on minor surgery w/ risk factors Medical Decision Making Level: 4 - Moderate documented in this encounter [facility] 01-15-2024 History of Present illness Narrative VIRTUAL VISIT PROGRESS NOTE This is a virtual visit using [employer] Video Visit. It required patient-provider interaction for the medical decision making as documented below. I have communicated my name and active licensure. The patient's identity and physical location were verified at the time of this visit. Either the patient or their legal telemarketing representative has been informed of the risks and benefits of -- and alternatives to -- treatment through a remote evaluation and consents to proceed with the evaluation remotely. Ana Hernandez is a 44 year old female seen for biopsy result discussion. Pt would like to have a hysterectomy vs doing the hysteroscopy D&C. She states that all the women in her family have had to have hysterectomies for similar reasons and she would rather not have to go through this surgery and still need a hysterectomy at some point. She does not want to do the Mirena IUD due to not doing well with other controls in the past. HISTORY REVIEWED (electronic chart updated): PAST MEDICAL HISTORY Diagnosis Date ABN GLUCOSE-ANTEPARTUM 05/23/2006 ASTHMA UNSPECIFIED 05/23/2006 Calculus of ureter 05/23/2006 Callus of foot Callus of foot COMMON MIGRAINE W/O MENTN INTRACT 05/23/2006 DEPRESSIVE DISORDER NEC 08/20/200606/09 -Stable, no meds Family history of diabetes mellitus 05/23/2006 Mother, Father, Maternal Grandparents FAMILY HX DIABETES MELLITUS 05/23/2006 Mother, Father, Maternal Grandparents Fatty liver 06/05/2009 CT Scan 01/06, showed diffuse fatty liver. LFTs elevated in past, but 06/09 - normal GOITER NOS 09/28/2006 TSH normal Lumbago 05/23/2006 Mild intermittent asthma without complication 05/23/2006 Since age 11. No medication. Last attack > 10 years OBESITY NOS 05/23/2006 Peripheral autonomic neuropathy due to diabetes mellitus (HCC) PMH - PAST MEDICAL HISTORY OF kidney stones Polycystic ovaries 05/23/2006 Polycystic ovaries 05/23/2006 Snoring Sprain of lumbar region 08/04/2014 Tobacco use disorder 06/05/2009 Type II or unspecified type diabetes mellitus without mention of complication, not stated as uncontrolled 06/05/2009 Unspecified asthma(493.90) PAST SURGICAL HISTORY Procedure Laterality Date DELIVERY ONLY , low cervical COLONOSCOPY 08/28/2018 hemorrhoid banding LAPAROSCOPY SURG CHOLECYSTECTOMY Cholecystectomy, lap MYRINGOTOMY ASPIR&/EUSTACHIAN TUBE NFLTJ ANES Myringotomy/tubes PAST SURGICAL HISTORY OF stents in ureter for kidney stones PAST SURGICAL HISTORY OF 08/04/14 lumbar pain injections. TONSILLECTOMY PRIMARY/SECONDARY <AGE 13 Tonsillectomy FAMILY HISTORY Problem Relation Age of Onset Diabetes Mother Diabetes Father Colon Cancer Father 61 Diabetes Maternal Grandmother other (Parkinson's) Maternal Grandmother Stroke Maternal Grandfather Diabetes Maternal Grandfather Social History Tobacco Use Smoking status: Former Packs/day: 0.30 Years: 3.00 Additional pack years: 0.00 Total pack years: 0.90 Types: Cigarettes Quit date: 09/10/2013 Years since quittin.3 Smokeless tobacco: Never Tobacco comments: uses E cigs Vaping Use Vaping Use: current everyday user Substances: Nicotine, Flavoring Devices: Refillable tank Substance Use Topics Alcohol use: No Drug use: No Current Outpatient Medications Medication Sig miSOPROStol (CYTOTEC) 200 mcg tablet Use 2 tablets vaginally as directed. The night before the procedure and the morning of the procedure. metFORMIN (GLUCOPHAGE) 850 mg tablet Take 1 tablet by mouth two times a day with meals. amitriptyline (ELAVIL) 50 mg tablet Take 1-2 tablets by mouth daily at bedtime. busPIRone HCl 30 mg tablet Take 1 tablet by mouth two times a day. desvenlafaxine ER (PRISTIQ) 25 mg 24 hr tablet Take 1 tablet by mouth once daily. simvastatin (ZOCOR) 40 mg tablet Take 1 tablet by mouth daily at bedtime. topiramate (TOPAMAX) 50 mg tablet Take 1 tablet by mouth two times a day. propranolol (INDERAL) 40 mg tablet Take 0.5 tablets by mouth two times a day. ZINC ORAL Take by mouth. cholecalciferol, vitamin D3, (VITAMIN D3 ORAL) Take by mouth. blood-glucose meter,mobile dev (HOLLY BLOOD GLUCOSE MONITOR) lyn albuterol HFA (PROAIR HFA) 90 mcg/actuation inhaler Inhale 2 Puffs as instructed every 4 hours as needed. omega-3 fatty acids (FISH OIL CONCENTRATE) 1,000 mg cap Take 1,000 mg by mouth once daily. HYDROcodone-acetaminophen (NORCO) 5-325 mg per tablet Take 5-325 tablets by mouth twice daily as needed. multivit-minerals/ferrous fum (MULTI VITAMIN ORAL) Take by mouth. celecoxib (CELEBREX) 200 mg capsule Take 200 mg by mouth once daily. TIZANIDINE HCL (ZANAFLEX ORAL) Take by mouth twice daily. No current facility-administered medications for this visit. ALLERGIES Allergen Reactions Avelox [Moxifloxaci* Rash Doxy [Doxycycline] GI Upset Penicillins Other: See Comments Mother does not recall what the reaction was and was told that she cannot take it Prozac [Fluoxetine * Other: See Comments Mother had side effects from this PHYSICAL EXAMINATION: VIDEO EXAM: (if completed, performed via video enabled technology) No exam performed ASSESSMENT/PLAN: 1. Irregular bleeding - ICD9: 626.4, ICD10: N92.6 Aygestin ordered I will discuss the pt concerns with Dr Luna and contact the pt back in regards to the care plan. I spent a total of 20 minutes on the date of the service which included preparing to see the patient, [id number] patient care, completing clinical documentation, obtaining and/or reviewing separately obtained history, counseling and educating the patient/family/caregiver, and ordering medications, tests, or procedures Samanta Dobson APRN.BIOINFORMATICS COMPUTER SCIENTIST documented in this encounter [facility] 01-12-2024 Instructions Sadaf Sorensen MA - 01/12/2024 9:49 AM EDT YOUR RECOVERY After your biopsy you may have: Vaginal bleeding (less than a normal menstrual period) Mild cramping Do NOT put anything in the vagina for 1 week after your endometrial biopsy. This includes: tampons douches and refraining from having sexual intercourse If you have any discomfort, you may take an over the counter pain medication (motrin, advil, ibuprofen, tylenol, etc). If this does not relieve your discomfort, contact the office. It is okay to wear a sanitary pad until the discharge and spotting stops. RISKS Although problems seldom occur with endometrial biopsies, there can be some complications. You may feel faint during and shortly after the procedure as well as have some bleeding after the procedure. There is also a risk of infection after the procedure. These complications are rare and can be easily treated. You should contact you doctor is you have any of the following: Heavy bleeding (more than your normal period) Bleeding with clots Severe abdominal pain Fever (more than 100.4F) Foul smelling vaginal discharge RESULTS We will have the results of your biopsy in 1-2 weeks. If you do not hear the results of your biopsy after 2 weeks, please contact the office for the results. If you have any additional questions or concerns please do not hesitate to contact the office. documented in this encounter [facility] 01-12-2024 History of Present illness Narrative Route Vending Machine Servicer offered: Patient declinesRobert Foster is a 44 year old Female who presents today for an endometrial biopsy for irregular menses. test: negative UNIVERSAL PROTOCOL / SAFETY CHECKLIST Procedure to be Performed: Endometrial Biopsy Sign In: A Moment of CARE was completed. Personnel directly involved with the procedure wore the appropriate PPE (Personal Protective Equipment). Patient/Surrogate Stated/Verified: PATIENT VERIFIED(optional for EMERGENT procedures): Patient name, Date of , Relevant allergies, and The intended procedure Time Out Communication: Intended patient and procedure match the source documents. Consent documented and matches the intended procedure. Sign Out: SIGN OUT (optional for EMERGENT procedures): All specimen containers correctly labeled. All instruments, equipment, possible retained foreign bodies accounted for. Post-procedure follow-up management communicated and Plan of Care Visit completed when applicable. PROCEDURE: EXTERNAL GENITALIA: Normal in appearance without lesions VAGINA: Normal in appearance without lesions BIOPSY: Speculum placed into the vagina with excellent visualization of the cervix. Cervix cleaned with betadine. Anterior lip of cervix grasped with single toothed tenaculum. Uterus sounded to 8 cm. Pipelle inserted into the uterus without difficulty and endometrial biopsy obtained. Procedure Summary: Patient tolerated procedure well. ASSESSMENT: heavy menses PLAN: Specimens labeled and sent to Pathology. Will notify patient of results in 1-2 weeks. Post-procedure instructions reviewed and written material given to the patient. Information given for her to review on Mirena IUD after visit. Zheng Luna DO documented in this encounter [facility] 01-08-2024 Telephone encounter Note Ordered filed. Please call pt to schedule EMB. Samanta Dobson APRN.CNP [facility] 01-08-2024 Miscellaneous Notes Ordered filed. Please call pt to schedule EMB. Samanta Dobson APRN.CNP Please file EMB order and route to PSS to assist with scheduling. Thank you. Spoke with pt regarding US report. She will need an appt for an EMB. Please call pt to schedule. Order filed. Samanta Dobson APRN.CNP documented in this encounter [facility] 01-07-2024 Telephone encounter Note Please file EMB order and route to PSS to assist with scheduling. Thank you. [facility] 01-05-2024 Telephone encounter Note Spoke with pt regarding US report. She will need an appt for an EMB. Please call pt to schedule. Order filed. Samanta Dobson APRN.CNP [facility] 12-31-2023 History of Present illness Narrative Radiology Service Progress Note PATIENT NAME: Ana Hernandez DATE OF SERVICE: December 31, 2023 TIME: 1:28 PM PATIENT IDENTITY VERIFICATION COMPLETED USING TWO (2) IDENTIFIERS: Name and Date of confirmed by patient verbally. FALL SCREENING: Has the patient had 2 falls in the last year or 1 fall with injury or currently using an Ambulatory Assistive Device (Walker, Cane, Wheelchair, Crutches, etc.)? No PATIENT GENDER DATA: Female. status: : No status: NO. PATIENT RELEVANT IMPLANT DATA REVIEWED: Not Applicable PATIENT PRESENTS WITH AN IMPLANTABLE OR ATTACHED FINAL CANOE INSPECTOR: No RADIOLOGY DEPARTMENT: Ultrasound PERIPHERAL IV DATA: Not applicable SIGNED BY: Mel Cazares RDMS RVT December 31, 2023 1:28 PM documented in this encounter [facility] 12-16-2023 History of Present illness Narrative Route Vending Machine Servicer offered: Patient declines. Ana Hernandez is a 43 year old female who presents for problem visit heavy irregular menses . HPI: pt states that her cycle is irregular, she will skips months, then have a menses regularly for a few months, then skip again Using adult diaper because the bleeding is heavy -flow lasting 7-8 Severe cramping, using muscle relaxer for pain. 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 LMP: 12/12/2023 (Exact Date), Having periods Age at Menarche: Age at First : Age at Menopause: Wooden Boat Builder History Comments: Sexual Activity: Yes; Male Contraception: No contraception data on record PAST MEDICAL HISTORY Diagnosis Date ABN GLUCOSE-ANTEPARTUM 05/23/2006 ASTHMA UNSPECIFIED 05/23/2006 Calculus of ureter 05/23/2006 Callus of foot Callus of foot COMMON MIGRAINE W/O MENTN INTRACT 05/23/2006 DEPRESSIVE DISORDER NEC 08/20/200606/09 -Stable, no meds Family history of diabetes mellitus 05/23/2006 Mother, Father, Maternal Grandparents FAMILY HX DIABETES MELLITUS 05/23/2006 Mother, Father, Maternal Grandparents Fatty liver 06/05/2009 CT Scan 01/06, showed diffuse fatty liver. LFTs elevated in past, but 06/09 - normal GOITER NOS 09/28/2006 TSH normal Lumbago 05/23/2006 Mild intermittent asthma without complication 05/23/2006 Since age 11. No medication. Last attack > 10 years OBESITY NOS 05/23/2006 Peripheral autonomic neuropathy due to diabetes mellitus (HCC) PMH - PAST MEDICAL HISTORY OF kidney stones Polycystic ovaries 05/23/2006 Polycystic ovaries 05/23/2006 Snoring Sprain of lumbar region 08/04/2014 Tobacco use disorder 06/05/2009 Type II or unspecified type diabetes mellitus without mention of complication, not stated as uncontrolled 06/05/2009 Unspecified asthma(493.90) PAST SURGICAL HISTORY Procedure Laterality Date DELIVERY ONLY , low cervical COLONOSCOPY 08/28/2018 hemorrhoid banding LAPAROSCOPY SURG CHOLECYSTECTOMY Cholecystectomy, lap MYRINGOTOMY ASPIR&/EUSTACHIAN TUBE NFLTJ ANES Myringotomy/tubes PAST SURGICAL HISTORY OF stents in ureter for kidney stones PAST SURGICAL HISTORY OF 08/04/14 lumbar pain injections. TONSILLECTOMY PRIMARY/SECONDARY <AGE 13 Tonsillectomy FAMILY HISTORY Problem Relation Age of Onset Diabetes Mother Diabetes Father Colon Cancer Father 61 Diabetes Maternal Grandmother other (Parkinson's) Maternal Grandmother Stroke Maternal Grandfather Diabetes Maternal Grandfather Social History Tobacco Use Smoking status: Former Packs/day: 0.30 Years: 3.00 Additional pack years: 0.00 Total pack years: 0.90 Types: Cigarettes Quit date: 09/10/2013 Years since quittin.2 Smokeless tobacco: Never Tobacco comments: uses E cigs Vaping Use Vaping Use: current everyday user Substances: Nicotine, Flavoring Devices: Refillable tank Substance Use Topics Alcohol use: No Drug use: No Current Outpatient Medications Medication Sig metFORMIN (GLUCOPHAGE) 850 mg tablet Take 1 tablet by mouth two times a day with meals. amitriptyline (ELAVIL) 50 mg tablet Take 1-2 tablets by mouth daily at bedtime. busPIRone HCl 30 mg tablet Take 1 tablet by mouth two times a day. desvenlafaxine ER (PRISTIQ) 25 mg 24 hr tablet Take 1 tablet by mouth once daily. simvastatin (ZOCOR) 40 mg tablet Take 1 tablet by mouth daily at bedtime. topiramate (TOPAMAX) 50 mg tablet Take 1 tablet by mouth two times a day. propranolol (INDERAL) 40 mg tablet Take 0.5 tablets by mouth two times a day. ZINC ORAL Take by mouth. cholecalciferol, vitamin D3, (VITAMIN D3 ORAL) Take by mouth. blood-glucose meter,mobile dev (HOLLY BLOOD GLUCOSE MONITOR) lyn albuterol HFA (PROAIR HFA) 90 mcg/actuation inhaler Inhale 2 Puffs as instructed every 4 hours as needed. omega-3 fatty acids (FISH OIL CONCENTRATE) 1,000 mg cap Take 1,000 mg by mouth once daily. HYDROcodone-acetaminophen (NORCO) 5-325 mg per tablet Take 5-325 tablets by mouth twice daily as needed. multivit-minerals/ferrous fum (MULTI VITAMIN ORAL) Take by mouth. celecoxib (CELEBREX) 200 mg capsule Take 200 mg by mouth once daily. TIZANIDINE HCL (ZANAFLEX ORAL) Take by mouth twice daily. valACYclovir (VALTREX) 1 gram At onset of cold sore: one tab immediately and repeat in 12 hours (2 doses total) (Patient not taking: Reported on 03/14/2022) No current facility-administered medications for this visit. Allergies As of Date: 12/16/2023 Allergen Noted Reaction AVELOX [MOXIFLOXACIN HCL] 08/10/2009 Rash DOXY [DOXYCYCLINE] 06/09/2009 GI Upset PENICILLINS 10/17/2005 Other: See Comments PROZAC [FLUOXETINE HCL] 05/08/2011 Other: See Comments Fully Assessed 12/16/2023 REVIEW OF SYSTEMS Expanded ROS: N/A Allergies and current medication updated:Yes EXAM: Wt 205 lb (93.0kg) LMP 12/12/2023 GENERAL: pleasant, female in no apparent distress HEENT: Normocephalic, atraumatic, mucus membranes moist, and no lesions CHEST: Normal inspiratory effort NEURO: alert and oriented x3,exam grossly non-focal EXTREMITIES: normal ASSESSMENT/PLAN: 1. Menorrhagia with irregular cycle - ICD9: 626.2, ICD10: N92.1 (primary diagnosis) - COMPLETE BLOOD COUNT AND DIFFERENTIAL - IRON AND TIBC - US FEMALE PELVIS TRANSVAG 2. Dysmenorrhea - ICD9: 625.3, ICD10: N94.6 Will notify patient of test results. BP 78/51- recommended increase water intake, not to take her Inderal this morning, and if she has any SOB, lightheadedness or passes out to go to the ED. Also not to drive or work today. Samanta Dobson APRN.CNP Medical Decision Making: Problems: Moderate: New problem with uncertain prognosis Data: Unique test(s) ordered: 3+ Risk: Low: Low risk from testing/treatment Medical Decision Making Level: 4 - Moderate documented in this encounter [facility] 12-08-2023 Miscellaneous Notes Patient has been identified by name and date of : Yes, Patient phones for refill(s): Requested Prescriptions Pending Prescriptions Disp Refills metFORMIN (GLUCOPHAGE) 850 mg tablet 60 tablet 0 Sig: Take 1 tablet by mouth two times a day with meals. amitriptyline (ELAVIL) 50 mg tablet 60 tablet 0 Sig: Take 1-2 tablets by mouth daily at bedtime. busPIRone HCl 30 mg tablet 60 tablet 0 Sig: Take 1 tablet by mouth two times a day. desvenlafaxine ER (PRISTIQ) 25 mg 24 hr tablet 30 tablet 0 Sig: Take 1 tablet by mouth once daily. Date of last office visit in primary care: 09/15/2023 Date of next office visit in primary care: 03/15/2024 Please advise. Thank you. Myranda Ruiz LPN. documented in this encounter [facility] 11-16-2023 Instructions David Alba APRN.BIOINFORMATICS COMPUTER SCIENTIST - 11/16/2023 12:34 PM EDT How to Manage Common Symptoms Associated with COVID for Adults Fever- Fever is a temperature over 100.4 F and can occur when the body is fighting an infection. To help treat a fever: Drink plenty of fluids and stay well hydrated. Eat small amounts of easy to digest food. Rest. Your body needs rest to recover, but getting up and moving around the house frequently is a good idea. You should try to continue doing your normal daily activities (bathing, toileting, grooming, cooking), though you will probably feel tired, and need to rest often. Avoid any heavy activity or exercise, as this will increase your body temperature. Dress in light clothing and stay covered in a light sheet. Keep the room temperature cool. Take a slightly warm (not cold or cool) bath, or apply damp washcloths to the forehead and wrists. Cough- Cough is a common symptom associated with COVID and can be bothersome. To help treat a cough: Stay well hydrated. Try warm water or tea with lemon and/or honey to help soothe the cough. Use a humidifier to add moisture to the air. Try a product with menthol, like a cough drop or a rub for your chest such as Vicks, which can help reduce cough. Try cough drops. Avoid smoking and other strong odors or perfumes. Try breathing exercises to keep your lungs open and clear. Take a big deep breath through your nose and hold for 5 seconds before slowly releasing. Repeat frequently, while you are awake. Congestion- Runny nose or nasal congestion can occur with COVID. Treatment can help relieve symptoms: Try OTC nasal saline spray, or nasal saline rinse to relieve mucus congestion. Nasal strips can help keep nasal passages open, to increase airflow. Elevating your head with an extra pillow in bed can help reduce congestion. Using a humidifier can increase moisture in the air, and make breathing easier. Sore Throat- Another common symptom with COVID, can be managed at home by: Stay well hydrated. Gargle with salt water - mix teaspoon salt with 1 cup of warm water and gargle. This helps to loosen mucus in the back of the throat and may reduce discomfort. Try ice chips, popsicles or lozenges to soothe the throat. Nausea/Vomiting/Diarrhea- These are common symptoms, and staying hydrated is most important. If you are nauseous or vomiting, start with small sips of water every 10-15 minutes and increase as tolerated. You can try sucking an ice cube too. If tolerating, you can try pedialyte or Gatorade, or flat sprite or ora-tanner. Start slowly and increase as you are able to. Instead of meals, try smaller, more frequent snacks. Try eating bland foods like crackers, toast, rice, and applesauce. Avoid spicy, greasy or fried foods and dairy containing foods. Even if you aren't feeling hungry due to lack of smell or taste, it is important to try to take in some food when you are able. After drinking and eating, rest in an upright position for up to two hours as needed to help decrease nauseous feelings. Try closing your eyes, avoid moving and watching TV. Avoid strong odors that can make you feel more nauseated. When to seek emergency medical attention Look for emergency warning signs for COVID-19. If having any of these symptoms, seek emergency medical care immediately: Trouble breathing Persistent pain or pressure in the chest New confusion Inability to wake or stay awake Bluish lips or face *This list is not all possible symptoms. Please call your medical provider for any other symptoms that are severe or concerning to you. documented in this encounter [facility] 11-16-2023 History of Present illness Narrative Subjective HPI Nontoxic-appearing female presents urgent care chief complaint flulike symptoms. Duration of symptoms 4 days. Associated symptoms sore throat headache fatigue cough nasal congestion right nares soreness. Has used OTC medications. No known sick contacts. 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 Negative home COVID-19 test. Denies any fevers productive cough chest pain shortness of breath pleuritic pain hemoptysis nausea vomiting abdominal pain change in bowel or bladder habits. Past medical history prescription medications allergies reviewed. .Patient presents with: sore nose: Sore right nostril, CRONIN x 4 days PAST MEDICAL HISTORY Diagnosis Date ABN GLUCOSE-ANTEPARTUM 05/23/2006 ASTHMA UNSPECIFIED 05/23/2006 Calculus of ureter 05/23/2006 Callus of foot Callus of foot COMMON MIGRAINE W/O MENTN INTRACT 05/23/2006 DEPRESSIVE DISORDER NEC 08/20/200606/09 -Stable, no meds Family history of diabetes mellitus 05/23/2006 Mother, Father, Maternal Grandparents FAMILY HX DIABETES MELLITUS 05/23/2006 Mother, Father, Maternal Grandparents Fatty liver 06/05/2009 CT Scan 01/06, showed diffuse fatty liver. LFTs elevated in past, but 06/09 - normal GOITER NOS 09/28/2006 TSH normal Lumbago 05/23/2006 Mild intermittent asthma without complication 05/23/2006 Since age 11. No medication. Last attack > 10 years OBESITY NOS 05/23/2006 Peripheral autonomic neuropathy due to diabetes mellitus (HCC) PMH - PAST MEDICAL HISTORY OF kidney stones Polycystic ovaries 05/23/2006 Polycystic ovaries 05/23/2006 Snoring Sprain of lumbar region 08/04/2014 Tobacco use disorder 06/05/2009 Type II or unspecified type diabetes mellitus without mention of complication, not stated as uncontrolled 06/05/2009 Unspecified asthma(493.90) PAST SURGICAL HISTORY Procedure Laterality Date DELIVERY ONLY , low cervical COLONOSCOPY 08/28/2018 hemorrhoid banding LAPAROSCOPY SURG CHOLECYSTECTOMY Cholecystectomy, lap MYRINGOTOMY ASPIR&/EUSTACHIAN TUBE NFLTJ ANES Myringotomy/tubes PAST SURGICAL HISTORY OF stents in ureter for kidney stones PAST SURGICAL HISTORY OF 08/04/14 lumbar pain injections. TONSILLECTOMY PRIMARY/SECONDARY <AGE 13 Tonsillectomy ALLERGIES Avelox [Moxifloxacin Hcl], Doxy [Doxycycline], Penicillins, and Prozac [Fluoxetine Hcl] MEDICATIONS topiramate (TOPAMAX) 50 mg tablet Take 1 tablet by mouth two times a day. metFORMIN (GLUCOPHAGE) 850 mg tablet Take 1 tablet by mouth two times a day with meals. amitriptyline (ELAVIL) 50 mg tablet Take 1-2 tablets by mouth daily at bedtime. busPIRone HCl 30 mg tablet Take 1 tablet by mouth two times a day. desvenlafaxine ER (PRISTIQ) 25 mg 24 hr tablet Take 1 tablet by mouth once daily. simvastatin (ZOCOR) 40 mg tablet Take 1 tablet by mouth daily at bedtime. propranolol (INDERAL) 40 mg tablet Take 0.5 tablets by mouth two times a day. ZINC ORAL Take by mouth. cholecalciferol, vitamin D3, (VITAMIN D3 ORAL) Take by mouth. blood-glucose meter,mobile dev (HOLLY BLOOD GLUCOSE MONITOR) lyn albuterol HFA (PROAIR HFA) 90 mcg/actuation inhaler Inhale 2 Puffs as instructed every 4 hours as needed. omega-3 fatty acids (FISH OIL CONCENTRATE) 1,000 mg cap Take 1,000 mg by mouth once daily. HYDROcodone-acetaminophen (NORCO) 5-325 mg per tablet Take 5-325 tablets by mouth twice daily as needed. multivit-minerals/ferrous fum (MULTI VITAMIN ORAL) Take by mouth. celecoxib (CELEBREX) 200 mg capsule Take 200 mg by mouth once daily. TIZANIDINE HCL (ZANAFLEX ORAL) Take by mouth twice daily. valACYclovir (VALTREX) 1 gram At onset of cold sore: one tab immediately and repeat in 12 hours (2 doses total) (Patient not taking: Reported on 03/14/2022) FAMILY HISTORY Problem Relation Age of Onset Diabetes Mother Diabetes Father Colon Cancer Father 61 Diabetes Maternal Grandmother other (Parkinson's) Maternal Grandmother Stroke Maternal Grandfather Diabetes Maternal Grandfather Social History Tobacco Use Smoking status: Former Packs/day: 0.30 Years: 3.00 Additional pack years: 0.00 Total pack years: 0.90 Types: Cigarettes Quit date: 09/10/2013 Years since quittin.1 Smokeless tobacco: Never Tobacco comments: uses E cigs Vaping Use Vaping Use: current everyday user Substances: Nicotine, Flavoring Devices: 1SDK Substance Use Topics Alcohol use: No Drug use: No BP 122/80 Pulse 82 Temp 36.5 C (97.7 F) (Tympanic) Resp 18 Wt 94.9 kg (209 lb 3.5 oz) LMP 12/21/2020 (Exact Date) SpO2 97% BMI 38.50 kg/m Review of Systems Constitutional: Positive for chills and malaise/fatigue. Negative for fever. HENT: Positive for congestion and sore throat. Negative for ear discharge, ear pain, nosebleeds and sinus pain. Eyes: Negative for blurred vision, pain, discharge and redness. Respiratory: Positive for cough. Negative for hemoptysis, sputum production, shortness of breath, wheezing and stridor. Cardiovascular: Negative for chest pain. Gastrointestinal: Negative for abdominal pain, diarrhea, nausea and vomiting. Musculoskeletal: Positive for myalgias. Skin: Negative for itching and rash. Neurological: Positive for headaches. Negative for dizziness. Objective Physical Exam Constitutional: General: She is not in acute distress. Appearance: She is not diaphoretic. HENT: Head: Normocephalic. Jaw: No trismus, tenderness, swelling or pain on movement. Nose: Nasal tenderness, mucosal edema and congestion present. No nasal deformity or signs of injury. Right Nostril: No septal hematoma or occlusion. Left Nostril: No septal hematoma or occlusion. Mouth/Throat: Mouth: Mucous membranes are moist. Pharynx: Oropharynx is clear. Uvula midline. No pharyngeal swelling, oropharyngeal exudate, posterior oropharyngeal erythema or uvula swelling. Eyes: Conjunctiva/sclera: Conjunctivae normal. Pupils: Pupils are equal, round, and reactive to light. Cardiovascular: Rate and Rhythm: Normal rate and regular rhythm. Heart sounds: Normal heart sounds. Pulmonary: Effort: Pulmonary effort is normal. No tachypnea, accessory muscle usage or respiratory distress. Breath sounds: Normal breath sounds. No stridor. No wheezing, rhonchi or rales. Abdominal: General: There is no distension. Palpations: Abdomen is soft. Tenderness: There is no abdominal tenderness. There is no guarding or rebound. Musculoskeletal: Cervical back: Normal range of motion and neck supple. No edema, erythema, rigidity or tenderness. No pain with movement. Normal range of motion. Lymphadenopathy: Cervical: No cervical adenopathy. Skin: General: Skin is warm and dry. Neurological: Mental Status: She is alert and oriented to person, place, and time. ASSESSMENT/PLAN: 1. Viral illness - ICD9: 079.99, ICD10: B34.9 - COVID & INFLUENZA A/B & RSV NAAT, ROUTINE Diagnosed with viral illness. No evidence of bacterial infection noted on exam. Will use mupirocin as discussed. Test for COVID and flu. Patient was educated on supportive therapies. Patient will follow up with primary care provider as needed. Patient was instructed to immediately proceed to emergency room for any new, worsening, or symptoms lasting longer than anticipated. The patient's clinical presentation is otherwise unremarkable at this time. Based on exam and clinical finding, the patient is stable for discharge. Plan of care was discussed with patient. Patient verbalizes understanding and agrees to plan of care. This note was generated using [employer] software. It may contain errors in wording, punctuation, or spelling. David Alba APRN.BIOINFORMATICS COMPUTER SCIENTIST documented in this encounter [facility] 10-31-2023 Miscellaneous Notes Patient has been identified by name and date of : Yes, Patient phones for refill(s): Requested Prescriptions Pending Prescriptions Disp Refills topiramate (TOPAMAX) 50 mg tablet 120 tablet 1 Sig: Take 1 tablet by mouth two times a day. metFORMIN (GLUCOPHAGE) 850 mg tablet 60 tablet 0 Sig: Take 1 tablet by mouth two times a day with meals. amitriptyline (ELAVIL) 50 mg tablet 60 tablet 0 Sig: Take 1-2 tablets by mouth daily at bedtime. busPIRone HCl 30 mg tablet 60 tablet 0 Sig: Take 1 tablet by mouth two times a day. desvenlafaxine ER (PRISTIQ) 25 mg 24 hr tablet 30 tablet 0 Sig: Take 1 tablet by mouth once daily. Date of last office visit in primary care: 09/15/2023 Date of next office visit in primary care: 03/15/2024 Please advise. Thank you. Myranda Ruiz LPN. documented in this encounter [facility] 02-05-2023 Note . MICRO - Microbiology PROCEDURE: Urine Culture [*1] SOURCE: Urine, Clean Catch BODY SITE: COLLECTED DATE/TIME: 02/04/2023 15:35 EDT RECEIVED DATE/TIME: 02/04/2023 18:58 EDT START DATE/TIME: 02/04/2023 18:58 EDT FREE TEXT SOURCE: FINAL REPORTS Final Report [] Verified Date/Time/Personnel: 02/05/2023 14:55 EDT <10,000 cfu/ml. No Significant growth. Sensitivity not indicated. Performing Locations *1: This test was performed at: [facility], [address] [place] [address], [id number] , [place] [facility] ([place]) 02-04-2023 Hospital Discharge instructions Patient Education 02/04/2023 17:26:56 Treating Constipation Treating Constipation Constipation is a common and often uncomfortable problem. Constipation means you have bowel movements fewer than 3 times per week, or strain to pass hard, dry stool. It can last a short time. Or it can be a problem that never seems to go away. The good news is that it can often be treated and controlled. Eat more fiber One of the best ways to help treat constipation is to increase your fiber intake. You can do this either through diet or by using fiber supplements. Fiber (in whole grains, fruits, and vegetables) adds bulk and absorbs water to soften the stool. This helps the stool pass through the colon more easily. When you increase your fiber intake, do it slowly to avoid side effects such as bloating. Also increase the amount of water that you drink. Eating more of the following foods can add fiber to your diet. High-fiber cereals Whole grains, bran, and brown rice Vegetables such as carrots, broccoli, and greens Fresh fruits (especially apples, pears, and dried fruits like raisins and apricots) Nuts and legumes (especially beans such as lentils, kidney beans, and laurent beans) Get physically active Exercise helps improve the working of your colon which helps ease constipation. Try to get some physical activity every day. If you haven t been active for a while, talk to your healthcare provider before starting again. Laxatives Your healthcare provider may suggest an bjvp-rbs-famaqjh product to help ease your constipation. He or she may suggest the use of bulk-forming agents or laxatives. The use of laxatives, if used as directed, is common and safe. Follow directions carefully when using them. See your healthcare provider for new-onset constipation, or long-term constipation, to rule out other causes such as medicines or thyroid disease. 2090-6233 [employer]. [address] [place] [address], [place] [address]. All rights reserved. This information is not intended as a substitute for professional medical care. Always follow your healthcare professional's instructions. 02/04/2023 17:26:50 Constipation (Adult) Constipation (Adult) Constipation means that you have bowel movements that are less frequent than usual. Stools often become very hard and difficult to pass. Constipation is very common. At some point in life, it affects almost everyone. Since everyone's bowel habits are different, what is constipation to one person may not be to another. Your healthcare provider may do tests to diagnose constipation. It depends on what he or she finds when evaluating you. Symptoms of constipation include: Abdominal pain Bloating Vomiting Painful bowel movements Itching, swelling, bleeding, or pain around the anus Causes Constipation can have many causes. These include: Diet low in fiber Too much dairy Not drinking enough liquids Lack of exercise or physical activity (especially true for older adults) Changes in lifestyle or daily routine, including , aging, work, and travel Frequent use or misuse of laxatives Ignoring the urge to have a bowel movement or delaying it until later Medicines, such as certain prescription pain medicines, iron supplements, antacids, certain antidepressants, and calcium supplements Diseases like irritable bowel syndrome, bowel obstructions, stroke, diabetes, thyroid disease, Parkinson disease, hemorrhoids, and colon cancer Complications Potential complications of constipation can include: Hemorrhoids Rectal bleeding from hemorrhoids or anal fissures (skin tears) Hernias Dependency on laxatives Chronic constipation Fecal impaction, a severe form of constipation in which a large amount of hard stool is in your rectum that you can't pass Bowel obstruction or perforation Home care All treatment should be done after talking with your healthcare provider. This is especially true if you have another medical problems, are taking prescription medicines, or are an older adult. Treatment most often involves lifestyle changes. You may also need medicines. Your healthcare provider will tell you which will work best for you. Follow the advice below to help avoid this problem in the future. Lifestyle changes These lifestyle changes can help prevent constipation: Diet. Eat a high-fiber diet, with fresh fruit and vegetables, and reduce dairy intake, meats, and processed foods Fluids. It's important to get enough fluids each day. Drink plenty of water when you eat more fiber. If you are on diet that limits the amount of fluid you can have, talk about this with your healthcare provider. Regular exercise. Check with your healthcare provider first. Medicines Take any medicines as directed. Some laxatives are safe to use only every now and then. Others can be taken on a regular basis. While laxatives don't cause bowel dependence, they are treating the symptoms. So your constipation may return if you don't make other changes. Talk with your healthcare provider or pharmacist if you have questions. Prescription pain medicines can cause constipation. If you are taking this kind of medicine, ask your healthcare provider if you should also take a stool softener. Medicines you may take to treat constipation include: Fiber supplements Stool softeners Laxatives Enemas Rectal suppositories Follow-up care Follow up with your healthcare provider if symptoms don't get better in the next few days. You may need to have more tests or see a specialist. Call 911 Call 911 if any of these occur: Trouble breathing Stiff, rigid abdomen that is severely painful to touch Confusion Fainting or loss of consciousness Rapid heart rate Chest pain When to seek medical advice Call your healthcare provider right away if any of these occur: Fever of 100.4 F (38 C) or higher, or as directed by your healthcare provider Failure to resume normal bowel movements Pain in your abdomen or back gets worse Nausea or vomiting Swelling in your abdomen Blood in the stool Black, tarry stool Involuntary weight loss Weakness 7190-7846 [employer]. [address] [place] [address]. All rights reserved. This information is not intended as a substitute for professional medical care. Always follow your healthcare professional's instructions. Follow Up Care 02/04/2023 14:46:48 With:Albert FERRER Address: [address] [place] [address]- When:2-4 days [facility] 02-04-2023 Note Discharge Instructions Thank you for allowing [facility] to assist you with your healthcare needs. The following is important discharge information regarding your hospital visit. Diagnosis from Today's Visit Constipation What to Do Next Instructions from Your Care Team Please drink the entire bottle of GoLytely tonight. Stay next to her toilet for the next 24 hours. Please return to the emergency department if your pain worsens or if you stop passing gas. Please return to the emergency department if you start experiencing high fevers. Please follow-up with your PCP in the next 2 to 4 days. Have a bowel movement, please do not force the bowel movement or strain to a significant amount Discharge Return to Work, School, or Sports (Return to Work, School, or Sports) - Ordered -- 02/06/23, May return to: work, 02/04/23 17:28:00 EDT Post Acute Orders No qualifying data available. You Need to Schedule the Following Appointments Follow Up with Albert FERRER When Within 2-4 days Where: [facility] [address] [facility] [address] [place] [id number]- Allergies Avelox (Rash) doxycycline (Nausea) penicillin (Unknown) Medications Please ask your primary doctor or pharmacist before taking any other medication not listed, including over the counter drugs, herbal medications, vitamins and or supplements as they may interact with your home medications. What How Much When Instructions Last Dose Unchanged amitriptyline (amitriptyline 50 mg oral tablet) take 1 to 2 tablets by mouth at bedtime Unchanged busPIRone (busPIRone 30 mg oral tablet) take 1 tablet by mouth twice a day Unchanged celecoxib (celecoxib 200 mg oral capsule) take 1 capsule by mouth once daily with food Unchanged metFORMIN (metFORMIN 850 mg oral tablet) 1 tab(s) by mouth Two (2) times a day Unchanged polyethylene glycol 3350 (MiraLax) 17 gram(s) by mouth Every day as needed for Constipation Unchanged propranolol 40 Milligram Two (2) times a day Unchanged simvastatin (simvastatin 40 mg oral tablet) take 1 tablet by mouth at bedtime Unchanged tiZANidine (tiZANidine 4 mg oral tablet) take 1 tablet by mouth twice a day if needed for muscle spasm Please take this list to your next doctor s visit. Bring all medications you take, including over the counter medications, herbals and other supplements with you to your doctor s visit. Patients and families are reminded to discard old lists and to update any records with all medication providers or retail pharmacies. Education Materials Treating Constipation Constipation is a common and often uncomfortable problem. Constipation means you have bowel movements fewer than 3 times per week, or strain to pass hard, dry stool. It can last a short time. Or it can be a problem that never seems to go away. The good news is that it can often be treated and controlled. Eat more fiber One of the best ways to help treat constipation is to increase your fiber intake. You can do this either through diet or by using fiber supplements. Fiber (in whole grains, fruits, and vegetables) adds bulk and absorbs water to soften the stool. This helps the stool pass through the colon more easily. When you increase your fiber intake, do it slowly to avoid side effects such as bloating. Also increase the amount of water that you drink. Eating more of the following foods can add fiber to your diet. High-fiber cereals Whole grains, bran, and brown rice Vegetables such as carrots, broccoli, and greens Fresh fruits (especially apples, pears, and dried fruits like raisins and apricots) Nuts and legumes (especially beans such as lentils, kidney beans, and laurent beans) Get physically active Exercise helps improve the working of your colon which helps ease constipation. Try to get some physical activity every day. If you haven t been active for a while, talk to your healthcare provider before starting again. Laxatives Your healthcare provider may suggest an jkvi-osd-ptmrlla product to help ease your constipation. He or she may suggest the use of bulk-forming agents or laxatives. The use of laxatives, if used as directed, is common and safe. Follow directions carefully when using them. See your healthcare provider for new-onset constipation, or long-term constipation, to rule out other causes such as medicines or thyroid disease. 3936-4011 [employer]. [address] [place] [address]. All rights reserved. This information is not intended as a substitute for professional medical care. Always follow your healthcare professional's instructions. Constipation (Adult) Constipation means that you have bowel movements that are less frequent than usual. Stools often become very hard and difficult to pass. Constipation is very common. At some point in life, it affects almost everyone. Since everyone's bowel habits are different, what is constipation to one person may not be to another. Your healthcare provider may do tests to diagnose constipation. It depends on what he or she finds when evaluating you. Symptoms of constipation include: Abdominal pain Bloating Vomiting Painful bowel movements Itching, swelling, bleeding, or pain around the anus Causes Constipation can have many causes. These include: Diet low in fiber Too much dairy Not drinking enough liquids Lack of exercise or physical activity (especially true for older adults) Changes in lifestyle or daily routine, including , aging, work, and travel Frequent use or misuse of laxatives Ignoring the urge to have a bowel movement or delaying it until later Medicines, such as certain prescription pain medicines, iron supplements, antacids, certain antidepressants, and calcium supplements Diseases like irritable bowel syndrome, bowel obstructions, stroke, diabetes, thyroid disease, Parkinson disease, hemorrhoids, and colon cancer Complications Potential complications of constipation can include: Hemorrhoids Rectal bleeding from hemorrhoids or anal fissures (skin tears) Hernias Dependency on laxatives Chronic constipation Fecal impaction, a severe form of constipation in which a large amount of hard stool is in your rectum that you can't pass Bowel obstruction or perforation Home care All treatment should be done after talking with your healthcare provider. This is especially true if you have another medical problems, are taking prescription medicines, or are an older adult. Treatment most often involves lifestyle changes. You may also need medicines. Your healthcare provider will tell you which will work best for you. Follow the advice below to help avoid this problem in the future. Lifestyle changes These lifestyle changes can help prevent constipation: Diet. Eat a high-fiber diet, with fresh fruit and vegetables, and reduce dairy intake, meats, and processed foods Fluids. It's important to get enough fluids each day. Drink plenty of water when you eat more fiber. If you are on diet that limits the amount of fluid you can have, talk about this with your healthcare provider. Regular exercise. Check with your healthcare provider first. Medicines Take any medicines as directed. Some laxatives are safe to use only every now and then. Others can be taken on a regular basis. While laxatives don't cause bowel dependence, they are treating the symptoms. So your constipation may return if you don't make other changes. Talk with your healthcare provider or pharmacist if you have questions. Prescription pain medicines can cause constipation. If you are taking this kind of medicine, ask your healthcare provider if you should also take a stool softener. Medicines you may take to treat constipation include: Fiber supplements Stool softeners Laxatives Enemas Rectal suppositories Follow-up care Follow up with your healthcare provider if symptoms don't get better in the next few days. You may need to have more tests or see a specialist. Call 911 Call 911 if any of these occur: Trouble breathing Stiff, rigid abdomen that is severely painful to touch Confusion Fainting or loss of consciousness Rapid heart rate Chest pain When to seek medical advice Call your healthcare provider right away if any of these occur: Fever of 100.4 F (38 C) or higher, or as directed by your healthcare provider Failure to resume normal bowel movements Pain in your abdomen or back gets worse Nausea or vomiting Swelling in your abdomen Blood in the stool Black, tarry stool Involuntary weight loss Weakness 0359-9455 [employer]. [address] [place] [address], [place] [address]. All rights reserved. This information is not intended as a substitute for professional medical care. Always follow your healthcare professional's instructions. Additional Information VACCINATE! IT SAVES LIVES! Members of the community who have not yet received the COVID-19 vaccine and would like to receive it can visit one of [facility] vaccine clinics. There are many vaccine clinic locations within the [facility]. For locations and available times, please visit [email or web address] [email or web address] It is important to note that some COVID mobile vaccine clinics are held outdoors and may be canceled in rainy or stormy conditions. To learn more about pediatric vaccinations (ages 5-11), we invite you to visit the [facility] webpage. https://www.[email or web address].org/pag es/7973-Otjgv-Ysvjyhxfnjl-Frequent tt-Dmkvn-Kfwvhevcu.html To learn more about the COVID-19 vaccine, we invite you to visit the CDC website for a list of frequently asked questions. https://www.cdc.gov/coronavirus/ 19-ncov/vaccines/faq.html [facility] Patient Portal Access Instructions: Stay connected with your healthcare team and access your personal medical information anytime with the [facility] Patient Portal. If you would like a full copy of your medical records please contact the [facility] Medical Records Department Friday through Friday between 8a.m. and 4:30p.m. Please follow the directions below to access the portal: 1.Access the email account you provided upon registration to the hospital.2.Look for an invitation email from [facility].3.Open the email and access the invitation link: Accept Invitation to [facility].Fill in the required roberson to create your account. Sign into [email or web address] with your username and password that you created in the above steps to stay up to date. You can then view a summary of results, a summary of your visits, and the ability to download your summaries to your computer or send the information securely to a physician. Remember that your healthcare information is confidential, so carefully consider who you will allow to register on the [employer] Patient Portal for access to your information. You can also access the [employer] Patient Portal on the [employer] shakir. Simply click on Health Records under Health Data and then click on the [employer] logo. HOW TO SAFELY DISPOSE OF PRESCRIPTION MEDICATIONS Please use one of the following methods to safely dispose of your unused medications. 1.Use a drug disposal kit: the drug disposal pouch allows you to safely discard your old and unused drugs. Ask your nurse to give you one when you are discharged.2.Visit a local take-back location: Many local pharmacies and police departments have programs that collect old and unwanted prescription drugs. Call your local pharmacy or go to http://AppSlingr.Luminoso/0Y6Eh2a to find one close to you.3.Make use of household items: Use cat litter or old coffee grounds to dispose medications if other options are not available. Mix your drugs with these household products, seal them in an airtight container and throw it into the garbage. Call [facility]: [phone] to be sure your drugs can be disposed of in this way. Some medicines may require a different approach.4.Never flush your medications down the toilet. IF YOU HAVE BEEN PRESCRIBED AN OPIOIDS FOR PAIN If you have been prescribed an opioid (such as hydrocodone, oxycodone or morphine), it is critical to understand the possible side effects and risks of opioid pain medications. Even when taken as directed, opioids can have several side effects including: Tolerance, meaning you might need to take more of a medication for the same pain relief. Nausea, vomiting and/or constipation. Sleepiness, dizziness, dry mouth, confusion, depression or itching. Physical dependence, meaning you have withdrawal symptoms when a medication is stopped ? this can develop within a few days. KNOW YOUR RESPONSIBILITIES It is important to know exactly how much and how often to take the opioid pain medications you are prescribed. Never take opioids in higher amounts or more often than prescribed. Do not combine opioids with alcohol or other drugs that cause drowsiness, such as benzodiazepines, also known as benzos, including diazepam and alprazolam, muscle relaxants or sleep aids. Never sell or share prescription opioids. This is illegal. Store opioids in a secure place and out of reach of others (including children, family, friends and visitors). The last page(s) of this document has been signed and retained as a CHART COPY Signatures Patient Education Materials Treating Constipation Constipation (Adult) Medication Leaflets My discharge plan and instructions have been reviewed and explained to me and I,ANA HERNANDEZ understand my current condition and have read and understand these discharge instructions. I have received a written copy of the plan/instructions. If I have questions, I am aware that I should contact my doctor. Patient/Hospital Cook Signature: Date/Time: Relationship to Patient: ___ Witness Name/Signature: Date/Time: [facility] 02-04-2023 Note ORIGINAL EXAMINATION: ONE SUPINE XRAY VIEW(S) OF THE ABDOMEN02/04/2023 3:24 pm COMPARISON: None available at time of dictation. HISTORY: ORDERING SYSTEM PROVIDED HISTORY: Reason for Exam: constipation FINDINGS: Nonobstructive bowel gas pattern. Moderate stool in the colon. No calculi over the renal shadows, expected course of bilateral ureters, or urinary bladder. No acute osseous abnormality. IMPRESSION: No acute radiographic findings. Moderate colon stool burden. I have personally reviewed the images of this examination and agree with the resident's findings and interpretation Interpreted by: William Lopez MD Preliminary Report By: Anibal Stern Electronically signed By William Lopez MD Dictated Date: 02/04/2023 3:50:12 PM Prelim Date: 02/04/2023 4:03:53 PM Sign Date: 02/04/2023 4:03:53 PM Ordering Provider: [facility] 02-04-2023 Note ORIGINAL EXAMINATION: ONE SUPINE XRAY VIEW(S) OF THE ABDOMEN02/04/2023 3:24 pm COMPARISON: None available at time of dictation. HISTORY: ORDERING SYSTEM PROVIDED HISTORY: Reason for Exam: constipation FINDINGS: Nonobstructive bowel gas pattern. Moderate stool in the colon. No calculi over the renal shadows, expected course of bilateral ureters, or urinary bladder. No acute osseous abnormality. IMPRESSION: No acute radiographic findings. Moderate colon stool burden. I have personally reviewed the images of this examination and agree with the resident's findings and interpretation Interpreted by: William Lopez MD Preliminary Report By: Anibal Stern Electronically signed By William Lopez MD Dictated Date: 02/04/2023 3:50:12 PM Prelim Date: 02/04/2023 4:03:53 PM Sign Date: 02/04/2023 4:03:53 PM Ordering Provider: [facility] 02-04-2023 Evaluation + Plan note Diagnostic Tests PendingUrine Culture 02/04/23 [facility] 01-29-2023 Miscellaneous Notes Patient phones requesting refills as follows: Requested Prescriptions Pending Prescriptions Disp Refills amitriptyline (ELAVIL) 50 mg tablet 60 tablet 4 Sig: Take 1-2 tablets by mouth daily at bedtime. busPIRone HCl 30 mg tablet 60 tablet 1 Sig: Take 1 tablet by mouth twice daily. desvenlafaxine ER (PRISTIQ) 25 mg 24 hr tablet 30 tablet 1 Sig: Take 1 tablet by mouth once daily. [facility] 02/21/22 NOV no upcoming appt *Pt overdue for appt. [facility] message to pt advising of need for appt. Waiting response. Please review and advise. Guanakito Edwards LPN documented in this encounter [facility] 11-25-2022 Miscellaneous Notes Notified via mychart. Rachel Land Ma Script sent. Due for an appointment. Please let patient know. Mine [place] [email or web address] Patient has been identified by name and date of : Yes Requested Prescriptions Pending Prescriptions Disp Refills busPIRone HCl 30 mg tablet 60 tablet 5 Sig: Take 1 tablet by mouth twice daily. desvenlafaxine ER (PRISTIQ) 25 mg 24 hr tablet 30 tablet 2 Sig: Take 1 tablet by mouth once daily. RX INSTRUCTIONS: MyChart request. No future visit scheduled. [facility] 02/21/22 Edgar Thornton LPN documented in this encounter [facility] 09-19-2022 Miscellaneous Notes Patient has been identified by name and date of : Yes Requested Prescriptions Pending Prescriptions Disp Refills metFORMIN (GLUCOPHAGE) 850 mg tablet 60 tablet 5 Sig: Take 1 tablet by mouth twice daily with meals. simvastatin (ZOCOR) 40 mg tablet 30 tablet 5 Sig: Take 1 tablet by mouth daily at bedtime. RX INSTRUCTIONS: Patient aware RX will be sent to pharmacy. No need to notify patient. Jovana Josue MA Landon: 01/2022 No appointment scheduled Last refill; 03/2022 documented in this encounter [facility] 07-23-2022 Miscellaneous Notes Patient phones requesting refills as follows: Requested Prescriptions Pending Prescriptions Disp Refills amitriptyline (ELAVIL) 50 mg tablet 60 tablet 4 Sig: Take 1-2 tablets by mouth daily at bedtime. desvenlafaxine ER (PRISTIQ) 25 mg 24 hr tablet 30 tablet 2 Sig: Take 1 tablet by mouth once daily. [facility]-02/21/22 Labs-02/21/22 NOV-none Please review and advise. Luana Hartman LPN documented in this encounter [facility] 06-21-2022 Miscellaneous Notes Form completed and given to patient . True calls to check on Status of Letter. Requesting call back today at [phone]. Seema Humphreys RN Type of form: Medical certification Form received via walk in When form is completed, call , True [phone] Form has been forwarded to Physician Desk: Jayjay Ferrer Asks to be done today. Edgar Thornton LPN documented in this encounter [facility] 03-14-2022 Instructions Mirza Daniel - 03/14/2022 9:21 AM EDT Continue with local wound care until healed. So continue with soaking and topical antibiotic If you notice increased moisture, can apply betadine to periphery. Call if any issues arise. Toes appear very stable. documented in this encounter [facility] 03-14-2022 History of Present illness Narrative FOLLOW UP PODIATRIC OFFICE VISIT Chief Complaint: This 42 year old who presents for follow up:b/l hallux toenail matrixectomy. Patient presents to clinic for followup matrixectomy of b/l hallux Patient feels she is doing well. Patient reports some draingae but no pus Patient denies any pain. Denies n/v/f/c. Reports that her dog did step on her toe yesterday. Her dog weighs 100 lbs. PAIN EVALUATION No data found in the last 1 encounters. Hemoglobin A1C Date Value Ref Range Status 02/21/2022 7.0 (H) 4.3 - 5.6 % Final Comment: [place] [employer] guidelines indicate that patients with HgbA1c in the range 5.7-6.4% are at increased risk for development of diabetes, and intervention by lifestyle modification may be beneficial. HgbA1c greater or equal to 6.5% is considered diagnostic of diabetes. PCP: Albert Ferrer PA-C PAST MEDICAL HISTORY Diagnosis Date ABN GLUCOSE-ANTEPARTUM 05/23/2006 ASTHMA UNSPECIFIED 05/23/2006 Calculus of ureter 05/23/2006 Callus of foot Callus of foot COMMON MIGRAINE W/O MENTN INTRACT 05/23/2006 DEPRESSIVE DISORDER NEC 08/20/200606/09 -Stable, no meds Family history of diabetes mellitus 05/23/2006 Mother, Father, Maternal Grandparents FAMILY HX DIABETES MELLITUS 05/23/2006 Mother, Father, Maternal Grandparents Fatty liver 06/05/2009 CT Scan 01/06, showed diffuse fatty liver. LFTs elevated in past, but 06/09 - normal GOITER NOS 09/28/2006 TSH normal Lumbago 05/23/2006 Mild intermittent asthma without complication 05/23/2006 Since age 11. No medication. Last attack > 10 years OBESITY NOS 05/23/2006 Peripheral autonomic neuropathy due to diabetes mellitus (HCC) PMH - PAST MEDICAL HISTORY OF kidney stones Polycystic ovaries 05/23/2006 Polycystic ovaries 05/23/2006 Snoring Sprain of lumbar region 08/04/2014 Tobacco use disorder 06/05/2009 Type II or unspecified type diabetes mellitus without mention of complication, not stated as uncontrolled 06/05/2009 Unspecified asthma(493.90) Current Outpatient Medications Medication Sig busPIRone HCl 30 mg tablet Take 1 tablet by mouth twice daily. metFORMIN (GLUCOPHAGE) 850 mg tablet Take 1 tablet by mouth twice daily with meals. simvastatin (ZOCOR) 40 mg tablet Take 1 tablet by mouth daily at bedtime. blood-glucose meter,mobile dev (iPeen BLOOD GLUCOSE MONITOR) lyn albuterol HFA (PROAIR HFA) 90 mcg/actuation inhaler Inhale 2 Puffs as instructed every 4 hours as needed. desvenlafaxine ER (PRISTIQ) 25 mg 24 hr tablet Take 1 tablet by mouth once daily. amitriptyline (ELAVIL) 50 mg tablet Take 1-2 tablets by mouth daily at bedtime. topiramate (TOPAMAX) 50 mg tablet Take 1 tablet by mouth twice daily. omega-3 fatty acids (FISH OIL CONCENTRATE) 1,000 mg cap Take 1,000 mg by mouth once daily. HYDROcodone-acetaminophen (NORCO) 5-325 mg per tablet Take 5-325 tablets by mouth twice daily as needed. sertraline (ZOLOFT) 25 mg tablet Take 1 tablet by mouth once daily. medroxyPROGESTERone (DEPO-PROVERA) 150 mg/mL Inject 1 mL intramuscularly every 12 weeks. propranolol (INDERAL) 40 mg tablet Take 1 tablet by mouth twice daily. (Patient taking differently: Take 20 mg by mouth twice daily. ) multivit-minerals/ferrous fum (MULTI VITAMIN ORAL) Take by mouth. celecoxib (CELEBREX) 200 mg capsule Take 200 mg by mouth once daily. TIZANIDINE HCL (ZANAFLEX ORAL) Take by mouth twice daily. valACYclovir (VALTREX) 1 gram At onset of cold sore: one tab immediately and repeat in 12 hours (2 doses total) (Patient not taking: Reported on 03/14/2022 ) No current facility-administered medications for this visit. ALLERGIES Allergen Reactions Avelox [Moxifloxaci* Rash Doxy [Doxycycline] GI Upset Penicillins Other: See Comments Mother does not recall what the reaction was and was told that she cannot take it Prozac [Fluoxetine * Other: See Comments Mother had side effects from this PAST SURGICAL HISTORY Procedure Laterality Date DELIVERY ONLY , low cervical COLONOSCOPY 08/28/2018 hemorrhoid banding LAPAROSCOPY SURG CHOLECYSTECTOMY Cholecystectomy, lap MYRINGOTOMY ASPIR&/EUSTACHIAN TUBE NFLTJ ANES Myringotomy/tubes PAST SURGICAL HISTORY OF stents in ureter for kidney stones PAST SURGICAL HISTORY OF 08/04/14 lumbar pain injections. TONSILLECTOMY PRIMARY/SECONDARY <AGE 13 Tonsillectomy Physical Exam: OBJECTIVE: Constitutional: Pt is a well developed 42 year old female who is alert, oriented, cooperative and in no apparent distress. Eyes: Following during examination. No redness or drainage. Respiratory: RR normal and nonlabored. Even breathing. No evidence of distress. Psychology: Patient is engaged during conversation. Normal affect and mood. Does not appear depressed or anxious. NVSI unchanged from previous visit. Dermatological: B/l hallux nail bed appears to be healing without signs of infection. Minimal bruising without pain is noted to right hallux. Musculoskeletal/Orthopaedic: Patient has no pain to palpation of b/l hallux ASSESSMENT: (S91.109A) Open wound of toe, initial encounter (primary encounter diagnosis) PLAN: Patient is s/p total nail matrixectomy to b/l hallux. Nail beds appear to be healing without infection. Some small present and removed today with tissue nippers. I will have her continue with local wound care until her toes are healed. If maceration present, she can switch from antibiotic cream to betadine. Discussed keeping balance between moisture and dryness Discussed bruising of right great toe. She has no pain. Likely from injection. Patient to monitor. Call if any issues arise. Mirza Daniel DPM AMB ROOMING INTAKE FLOWSHEET DATA Risk Screening Do you have concerns about personal safety or safety in the home?: No Patient presents with: Left Foot - Established Patient, Follow Up Right Foot - Established Patient, Follow Up Aziza Scott LPN documented in this encounter [facility] 03-11-2022 Miscellaneous Notes Last office visit: 02/21/22 F/u scheduled: none Rachel Land Ma documented in this encounter [facility] 03-11-2022 Miscellaneous Notes Last office visit: 02/21/22 F/u scheduled: none Racehl Land Ma documented in this encounter [facility] 02-28-2022 History of Present illness Narrative UNIVERSAL PROTOCOL / SAFETY CHECKLIST Procedure to be Performed: Total matrixectomy, B/L hallux Sign In: A Moment of CARE was completed. Personnel directly involved with the procedure wore the appropriate PPE (Personal Protective Equipment). No special equipment needed. Patient/Surrogate Stated/Verified: PATIENT VERIFIED(optional for EMERGENT procedures): Patient name, Date of , Relevant allergies and The intended procedure Time Out Communication: Intended patient and procedure match the source documents. Consent documented and matches the intended procedure. No relevant labs, photos, and/or imaging studies were applicable for review. Correct side/site marked and visible. Medications required for procedure verified. No fire risk assessment and interventions applicable. No implant(s) inserted. Sign Out: SIGN OUT (optional for EMERGENT procedures): No specimen collected. All instruments, equipment, possible retained foreign bodies accounted for. Post-procedure follow-up management communicated and Plan of Care Visit completed when applicable. Michelle Sandy RN FOLLOW UP PODIATRIC OFFICE VISIT Chief Complaint: This 42 year old who presents for follow up:b/l hallux toenail deformity Patient presents to clinic for follow-up bl hallux toenail deformity She is here to have both great toenails removed. She is diabetic with a1c of 7.0 She does not smoke but does vape. PAIN EVALUATION No data found in the last 1 encounters. Hemoglobin A1C Date Value Ref Range Status 02/21/2022 7.0 (H) 4.3 - 5.6 % Final Comment: [place] [employer] guidelines indicate that patients with HgbA1c in the range 5.7-6.4% are at increased risk for development of diabetes, and intervention by lifestyle modification may be beneficial. HgbA1c greater or equal to 6.5% is considered diagnostic of diabetes. PCP: Albert Ferrer PA-C PAST MEDICAL HISTORY Diagnosis Date ABN GLUCOSE-ANTEPARTUM 05/23/2006 ASTHMA UNSPECIFIED 05/23/2006 Calculus of ureter 05/23/2006 Callus of foot Callus of foot COMMON MIGRAINE W/O MENTN INTRACT 05/23/2006 DEPRESSIVE DISORDER NEC 08/20/200606/09 -Stable, no meds Family history of diabetes mellitus 05/23/2006 Mother, Father, Maternal Grandparents FAMILY HX DIABETES MELLITUS 05/23/2006 Mother, Father, Maternal Grandparents Fatty liver 06/05/2009 CT Scan 01/06, showed diffuse fatty liver. LFTs elevated in past, but 06/09 - normal GOITER NOS 09/28/2006 TSH normal Lumbago 05/23/2006 Mild intermittent asthma without complication 05/23/2006 Since age 11. No medication. Last attack > 10 years OBESITY NOS 05/23/2006 Peripheral autonomic neuropathy due to diabetes mellitus (HCC) PMH - PAST MEDICAL HISTORY OF kidney stones Polycystic ovaries 05/23/2006 Polycystic ovaries 05/23/2006 Snoring Sprain of lumbar region 08/04/2014 Tobacco use disorder 06/05/2009 Type II or unspecified type diabetes mellitus without mention of complication, not stated as uncontrolled 06/05/2009 Unspecified asthma(493.90) Current Outpatient Medications Medication Sig blood-glucose meter,mobile dev (iPeen BLOOD GLUCOSE MONITOR) lyn albuterol HFA (PROAIR HFA) 90 mcg/actuation inhaler Inhale 2 Puffs as instructed every 4 hours as needed. desvenlafaxine ER (PRISTIQ) 25 mg 24 hr tablet Take 1 tablet by mouth once daily. amitriptyline (ELAVIL) 50 mg tablet Take 1-2 tablets by mouth daily at bedtime. topiramate (TOPAMAX) 50 mg tablet Take 1 tablet by mouth twice daily. omega-3 fatty acids (FISH OIL CONCENTRATE) 1,000 mg cap Take 1,000 mg by mouth once daily. HYDROcodone-acetaminophen (NORCO) 5-325 mg per tablet Take 5-325 tablets by mouth twice daily as needed. sertraline (ZOLOFT) 25 mg tablet Take 1 tablet by mouth once daily. simvastatin (ZOCOR) 40 mg tablet Take 1 tablet by mouth daily at bedtime. busPIRone HCl 30 mg tablet Take 1 tablet by mouth twice daily. metFORMIN (GLUCOPHAGE) 850 mg tablet Take 1 tablet by mouth twice daily with meals. medroxyPROGESTERone (DEPO-PROVERA) 150 mg/mL Inject 1 mL intramuscularly every 12 weeks. propranolol (INDERAL) 40 mg tablet Take 1 tablet by mouth twice daily. (Patient taking differently: Take 20 mg by mouth twice daily. ) valACYclovir (VALTREX) 1 gram At onset of cold sore: one tab immediately and repeat in 12 hours (2 doses total) multivit-minerals/ferrous fum (MULTI VITAMIN ORAL) Take by mouth. celecoxib (CELEBREX) 200 mg capsule Take 200 mg by mouth once daily. TIZANIDINE HCL (ZANAFLEX ORAL) Take by mouth twice daily. No current facility-administered medications for this visit. ALLERGIES Allergen Reactions Avelox [Moxifloxaci* Rash Doxy [Doxycycline] GI Upset Penicillins Other: See Comments Mother does not recall what the reaction was and was told that she cannot take it Prozac [Fluoxetine * Other: See Comments Mother had side effects from this PAST SURGICAL HISTORY Procedure Laterality Date DELIVERY ONLY , low cervical COLONOSCOPY 08/28/2018 hemorrhoid banding LAPAROSCOPY SURG CHOLECYSTECTOMY Cholecystectomy, lap MYRINGOTOMY ASPIR&/EUSTACHIAN TUBE NFLTJ ANES Myringotomy/tubes PAST SURGICAL HISTORY OF stents in ureter for kidney stones PAST SURGICAL HISTORY OF 08/04/14 lumbar pain injections. TONSILLECTOMY PRIMARY/SECONDARY <AGE 13 Tonsillectomy Physical Exam: OBJECTIVE: Constitutional: Pt is a well developed 42 year old female who is alert, oriented, cooperative and in no apparent distress. Eyes: Following during examination. No redness or drainage. Respiratory: RR normal and nonlabored. Even breathing. No evidence of distress. Psychology: Patient is engaged during conversation. Normal affect and mood. Does not appear depressed or anxious. NVSI unchanged from previous visit. Non-Invasive Vascular Laboratory [facility] Lower Extremity Arterial Physiology Study Bilateral/Complete Date of service/time: 01/31/2022 10:55:13 AM Name: MRS. ANA HERNANDEZ Date of : 1980 Age: 42 years Gender: F Medical History Tobacco: Former Clinical Indication Abnormal pulses. TECHNIQUE -------- An arterial physiological examination was performed, including measurement of blood pressures using continuous wave Doppler and recording of plethysmographic with or without Doppler waveforms at the below-mentioned limb segments. FINDINGS -------- RIGHT SIDE AT REST Right Doppler Waveforms Dorsalis pedis: Triphasic. Post tibial: Triphasic. Right Pressures Brachial: 117 mmHg Ankle dorsalis pedis: 138 mmHg JENNIFER: 1.18 Ankle posterior tibial: 145 mmHg JENNIFER: 1.24 Digit: 105 mmHg Right PVR Waveforms Ankle: Normal. Digit: Normal. LEFT SIDE AT REST Left Doppler Waveforms Dorsalis pedis: Triphasic. Post tibial: Triphasic. Left Pressures Brachial: 108 mmHg Ankle dorsalis pedis: 136 mmHg JENNIFER: 1.16 Ankle posterior tibial: 143 mmHg JENNIFER: 1.22 Digit: 105 mmHg Left PVR Waveforms Ankle: Normal. Digit: Normal. IMPRESSION RIGHT SIDE Resting right ankle brachial index: 1.24 Right toe brachial index: 0.90 Normal ankle brachial index at rest in the right leg. Normal toe brachial index at rest in the right leg. Right ankle: Normal at rest. LEFT SIDE Resting left ankle brachial index: 1.22 Left toe brachial index: 0.90 Normal ankle brachial index at rest in the left leg. Normal toe brachial index at rest in the left leg. Left ankle: Normal at rest. Technologist: Meera Joseph RVT, [facility] Ordering physician: MIRZA DANIEL Interpreting physician: ALLAN Olivarez DO Dermatological: B/l hallux toenail is thick, dystrophic, painful. Webspaces clean and dry 1-4 b/l. Skin appears well hydrated and supple. good color, texture, turgor. No open lesions present. No callosities present. Musculoskeletal/Orthopaedic: Patient has pain to palpation of b/l hallux toenail ASSESSMENT: (L60.3) Onychodystrophy (primary encounter diagnosis) PLAN: 1. pateint has severe thickening of b/l hallux toenail. They cause her pain and at times ingrown. She is interested in removal. 2. I have reviewed pvr. She has adequate perfusion to heal a toenail procedure. 3. This patient does smoke (vape) and is diabetic. I discussed waiting until she stops smoking prior to doing procedure. She does not see her stopping smoking anytime soon. I informed her that being diabetic and smoking does place her at risk of slow healing and even nonhealing or loss of toe. She understands this. 4. I offered to do one foot at at [facility] but she wishes to do both nails today. 5. Patient consents to b/l hallux toenail matrixectomy Discussed risks of toenail procedure not limited to infection, pain, swelling, bleeding, painful scarring, recurrence, need for revised procedure. Patient consented to proceed. Patient was properly identified by name and procedure. The left hallux was then injected with 3 cc of 1% lidocaine plain. The toe was then prepped and draped in the usual aseptic technique. A digital tournicot was applied to the toe. The entire nail was then freed and removed. Careful inspection was performed to assure no remaining spicule present. 3 applications of phenol were then administered x 30 seconds each followed by alcohol rinse. Sterile dressing was then applied consisting of amerigel, guaze, gaviota and coban. Tournicot was removed and hyperemic response was noted. Patient tolerated well. Patient will f/u in 2 weeks. Discussed risks of toenail procedure not limited to infection, pain, swelling, bleeding, painful scarring, recurrence, need for revised procedure. Patient consented to proceed. Patient was properly identified by name and procedure. The right hallux was then injected with 3 cc of 1% lidocaine plain. The toe was then prepped and draped in the usual aseptic technique. A digital tournicot was applied to the toe. The entire nail was then freed and removed. Careful inspection was performed to assure no remaining spicule present. 3 applications of phenol were then administered x 30 seconds each followed by alcohol rinse. Sterile dressing was then applied consisting of amerigel, guaze, gaviota and coban. Tournicot was removed and hyperemic response was noted. Patient tolerated well. Patient will f/u in 2 weeks. Nargis Treadwell DPM, DABPM, FACFAS Pager: [phone] [facility] [place] [facility] and [facility] locations Patient presents with: Left Great Toe - toenail removal, Follow Up Right Great Toe - toenail removal, Follow Up documented in this encounter [facility] 02-28-2022 Instructions Mirza Daniel - 02/28/2022 9:45 AM EDT Post-Op Nail Instructions Minimize activity until the anesthesia wears off (about 2-8 hours). Increase activity to tolerance Remove bandage tomorrow Soak affected toe/foot in epsom salts for 15-20 minutes twice daily After soaking, apply antibiotic ointment (OTC Neosporin) to affected toe and re bandage OTC Ibuprofen if having pain, provided you have no allergies or intolerance to NSAIDS Mild drainage, redness, and blood is expected, but if you expeirence severe pain, increase in drainage, swelling, or red streaking please contact our office immediately Feel free to contact office as well if you have any questions/concerns [phone], ask for Podiatry Nurse documented in this encounter [facility] 02-26-2022 Miscellaneous Notes Phone call placed patient advised (see prior provider encounter) Patient verbalized understanding, reported no change in dietary habits (no increase in meat consumprion ) OTC medications reported as fish oil, multivitamin, reported recent cold/illness two weeks prior. LMP currently irregular 10/27/2021 normal flow. Niki Morin LPN Marcus Foster, Urine creatinine levels are slightly elevated however your ratios are normal so this is not concerning for diabetic injury. Have you increased intake of meat? Are you taking any supplements? Hemoglobin A1c is up to 7% but still in controlled range: We should continue to monitor, while you are still in range you had a significant increase so I am going to place orders to recheck in 3 months. Nonfasting lab work. Try to work on exercise, carb reduction and we will see how things proceed. Cholesterol looks great! Liver enzymes are mildly elevated again, will need to recheck this as well. Let me know if there is been any significant change or recent illness. Other chemistries are unchanged with mildly low potassium and slightly elevated creatinine likely medication side effects. Blood count shows borderline anemia, not terribly significant unless you are having heavy periods, stomach pain, increased heartburn, change in bowel habits, black or tarry stools. If any of these things are happening please let me know. Best, Albert Ferrer PA-C TC to pt, left message to return call to office. Guanakito Edwards LPN What? You can't read my mind ;) ? I think I wanted to make sure she saw need for repeat labs in 3 months. Thanks, Jayjay Ferrer PA-C Telephone on 02/22/22 HGB A1C COMP METABOLIC PANEL documented in this encounter [facility] 02-21-2022 Instructions Albert Ferrer PA-C - 02/21/2022 9:46 AM EDT SLEEP HYGIENE Steps to Improve Your sleep Maintain a regular sleep-wake cycle 7 days a week. Bedtime should not vary more than 1 hour from day to day. Go to bed ONLY when you are sleepy. Aim for at least 8 hours of sleep which has been identified as the optimal amount for all adults. Maintain a regular schedule for meals, medications, chores and sleep as much as possible. Limit or wean completely off any stimulants, such as caffeine, nicotine, energy drinks, and OTC decongestant medications which can effect sleep efficiency. Caffeine exerts its effect for 12-16 hours, so avoid use within that time period before sleep. Do not use nicotine products withing 4-6 hours of sleeping. Avoid taking naps. If you do nap, try to limit is to less than 1 hour. Don't lay in bed longer than 20-30 minutes without sleeping. Get up and do something sedentary unitl you feel tired like folding clothes, reading, listening to relaxing music or meditation. Minimize excessive light, noise, or extremes of temperature in the sleep environment. Minimize distractions as much as possible such as pets, children, un-silenced phones, light or TV noise in the bedroom. Move the alarm clock away from your bed so that you are not tempted to look at it. Don't eat a large meal within a few hours of bedtime. Don't use alcohol to induce sleep or in late evening hours as it can cause awakenings later in the night Don't exercise vigorously within fours of sleep. Regular exercise earlier in the day will help with overall sleep improvement. Limit television to an hour a day. Television viewing actually decreases the REM (most restful) portion of your sleep cycle. Avoid screen time in the two hours before sleep. This includes television, tablets, computer screens and cell-phones. The blue light from the devices mimics sunlight and activates wakefulness. Avoid using your bed as a recreational area for reading or television. The bed should be reserved for two things, and one of those is sleep. Almost all sleep-aids are sedatives. While sedatives make cause you to sleep, they actually interfere with stage 4 deep sleep which is the reparative stage for brain stress. Chronic use of sedatives for an unknown reason increases all cause mortality and shorter life span. OTC herbal supplements such as Valerian Root and Kava Kava have shown some benefit in sleep induction without hang over. Melatonin has been sown to help some people and is also not a sedative. The recommended dose for melatonin in adult is 1/2mg one hour prior to bedtime. Melatonin regulates sleep cycle and larger doses may cause activation rather than sleep. Mindfulness practice has been shown to improve deep sleep. There are many internet source and apps to help guidance in this habit. See below for guidance in this practice. Wean off sertraline 25mg alternating with 1/2 tab (12.5mg) x 1 week, then 12.5mg daily x 1 week, then 12.5mg every other day x 1 week and off. Desvenlafaxine: Patient drug information Access Spunkmobile Online for additional drug information, tools, and databases. Copyright 1345-7504 [employer]. All rights reserved. (For additional information see Desvenlafaxine: Drug information) You must carefully read the Consumer Information Use and Disclaimer below in order to understand and correctly use this information. Brand Names: [place] Khedezla [DSC]; Pristiq Brand Names: Amanda APO-Desvenlafaxine; Pristiq Warning Drugs like this one have raised the chance of suicidal thoughts or actions in children and young adults. The risk may be greater in people who have had these thoughts or actions in the past. All people who take this drug need to be watched closely. Call the doctor right away if signs like low mood (depression), nervousness, restlessness, grouchiness, panic attacks, or changes in mood or actions are new or worse. Call the doctor right away if any thoughts or actions of suicide occur. This drug is not approved for use in children. Talk with the doctor. What is this drug used for? It is used to treat low mood (depression). It may be given to you for other reasons. Talk with the doctor. What do I need to tell my doctor BEFORE I take this drug? If you are allergic to this drug; any part of this drug; or any other drugs, foods, or substances. Tell your doctor about the allergy and what signs you had. If you have narrow-angle glaucoma. If you are taking any of these drugs: Linezolid or methylene blue. If you have taken certain drugs for depression or Parkinson's disease in the last 14 days. This includes isocarboxazid, phenelzine, tranylcypromine, selegiline, or rasagiline. Very high blood pressure may happen. If you are taking another drug that has the same drug in it. If you are using another drug like this one. If you are not sure, ask your doctor or pharmacist. This is not a list of all drugs or health problems that interact with this drug. Tell your doctor and pharmacist about all of your drugs (prescription or OTC, natural products, vitamins) and health problems. You must check to make sure that it is safe for you to take this drug with all of your drugs and health problems. Do not start, stop, or change the dose of any drug without checking with your doctor. What are some things I need to know or do while I take this drug? Tell all of your health care providers that you take this drug. This includes your doctors, nurses, pharmacists, and dentists. It may take several months to see full effect. Avoid driving and doing other tasks or actions that call for you to be alert until you see how this drug affects you. To lower the chance of feeling dizzy or passing out, rise slowly if you have been sitting or lying down. Be careful going up and down stairs. Do not stop taking this drug all of a sudden without calling your doctor. You may have a greater risk of side effects. If you need to stop this drug, you will want to slowly stop it as ordered by your doctor. High blood pressure has happened with this drug. Have your blood pressure checked as you have been told by your doctor. Avoid drinking alcohol while taking this drug. Talk with your doctor before you use marijuana, other forms of cannabis, or prescription or OTC drugs that may slow your actions. This drug may raise the chance of bleeding. Sometimes, bleeding can be life-threatening. Talk with the doctor. Some people may have a higher chance of eye problems with this drug. Your doctor may want you to have an eye exam to see if you have a higher chance of these eye problems. Call your doctor right away if you have eye pain, change in eyesight, or swelling or redness in or around the eye. This drug can cause low sodium levels. Very low sodium levels can be life-threatening, leading to seizures, passing out, trouble breathing, or . This drug may affect certain lab tests. Tell all of your health care providers and lab workers that you take this drug. If you are 65 or older, use this drug with care. You could have more side effects. Tell your doctor if you are , plan on getting , or are breast-feeding. You will need to talk about the benefits and risks to you and the baby. Taking this drug in the third trimester of may lead to some health problems in the . Talk with the doctor. What are some side effects that I need to call my doctor about right away? WARNING/CAUTION: Even though it may be rare, some people may have very bad and sometimes deadly side effects when taking a drug. Tell your doctor or get medical help right away if you have any of the following signs or symptoms that may be related to a very bad side effect: Signs of an allergic reaction, like rash; hives; itching; red, swollen, blistered, or peeling skin with or without fever; wheezing; tightness in the chest or throat; trouble breathing, swallowing, or talking; unusual hoarseness; or swelling of the mouth, face, lips, tongue, or throat. Signs of low sodium levels like headache, trouble focusing, memory problems, feeling confused, weakness, seizures, or change in balance. Signs of bleeding like throwing up or coughing up blood; vomit that looks like coffee grounds; blood in the urine; black, red, or tarry stools; bleeding from the gums; abnormal vaginal bleeding; bruises without a cause or that get bigger; or bleeding you cannot stop. Signs of high blood pressure like very bad headache or dizziness, passing out, or change in eyesight. Signs of lung or breathing problems like shortness of breath or other trouble breathing, cough, or fever. Chest pain or pressure. Seizures. Feeling very tired or weak. Hallucinations (seeing or hearing things that are not there). Some men have had sexual problems when taking this drug. These include lowered interest in sex and not able to get an erection. Call your doctor right away if you have sexual problems when taking this drug. A severe and sometimes deadly problem called serotonin syndrome may happen. The risk may be greater if you also take certain other drugs. Call your doctor right away if you have agitation; change in balance; confusion; hallucinations; fever; fast or abnormal heartbeat; flushing; muscle twitching or stiffness; seizures; shivering or shaking; sweating a lot; severe diarrhea, upset stomach, or throwing up; or very bad headache. What are some other side effects of this drug? All drugs may cause side effects. However, many people have no side effects or only have minor side effects. Call your doctor or get medical help if any of these side effects or any other side effects bother you or do not go away: Feeling dizzy, sleepy, tired, or weak. Upset stomach or throwing up. Constipation. Dry mouth. Trouble sleeping. Not hungry. Sweating. Shakiness. You may see something that looks like the tablet in your stool. This is normal and not a cause for concern. If you have questions, talk with your doctor. These are not all of the side effects that may occur. If you have questions about side effects, call your doctor. Call your doctor for medical advice about side effects. You may report side effects to your national health agency. How is this drug best taken? Use this drug as ordered by your doctor. Read all information given to you. Follow all instructions closely. Take with or without food. Swallow whole with fluid. Do not chew, break, crush, or dissolve. Take this drug at the same time of day. Keep taking this drug as you have been told by your doctor or other health care provider, even if you feel well. What do I do if I miss a dose? Take a missed dose as soon as you think about it. If it is close to the time for your next dose, skip the missed dose and go back to your normal time. Do not take 2 doses at the same time or extra doses. How do I store and/or throw out this drug? Store at room temperature. Store in a dry place. Do not store in a bathroom. Keep all drugs in a safe place. Keep all drugs out of the reach of children and pets. Throw away unused or drugs. Do not flush down a toilet or pour down a drain unless you are told to do so. Check with your pharmacist if you have questions about the best way to throw out drugs. There may be drug take-back programs in your area. General drug facts If your symptoms or health problems do not get better or if they become worse, call your doctor. Do not share your drugs with others and do not take anyone else's drugs. Some drugs may have another patient information leaflet. If you have any questions about this drug, please talk with your doctor, nurse, pharmacist, or other health care provider. If you think there has been an overdose, call your poison control center or get medical care right away. Be ready to tell or show what was taken, how much, and when it happened. Last Reviewed [id number] Consumer Information Use and Disclaimer This information should not be used to decide whether or not to take this medicine or any other medicine. Only the healthcare provider has the knowledge and training to decide which medicines are right for a specific patient. This information does not endorse any medicine as safe, effective, or approved for treating any patient or health condition. This is only a brief summary of general information about this medicine. It does NOT include all information about the possible uses, directions, warnings, precautions, interactions, adverse effects, or risks that may apply to this medicine. This information is not specific medical advice and does not replace information you receive from the healthcare provider. You must talk with the healthcare provider for complete information about the risks and benefits of using this medicine. The use of this information is governed by the [employer] End User License Agreement, available at https://www.NOMERMAIL.RU.adhoclabs/en/s so/Nuvosunmp/about/lalit. 2020 [employer]. and its affiliates and/or licensors. All rights reserved. Use of [employer] is subject to the Subscription and License Agreement. Topic 77349 Version 147.0 documented in this encounter [facility] 02-21-2022 History of Present illness Narrative 42 year old female with c/o here for follow up. Controlled type 2 diabetes mellitus without complication, without long-term current use of insulin (hcc) (primary encounter diagnosis) Current medications: Metformin 850 mg twice daily with meals Taking medication as directed consistently? Yes Medical Issues / Complications: Checking blood sugars at home? Not sure machine accurate- reads high. Control was fine Watching diet? No Physical Activity: Regular Hypoglycemic spells? No Any visual disturbance? No Chest pain? No New numbness, tingling or loss of sensation? No Any recent foot problems, sores or rashes? No Any recent or sudden weight loss? No Change in urination? No. If yes: Any recent illness? No Last eye exam: done in October. Last foot exam: up to date. Sees podiatry HBA1C: Hemoglobin A1C (%) Date Value 08/17/2021 6.3 02/04/2020 6.5 ) CMP: Glucose 111 08/17/2021 BUN 14 08/17/2021 Creatinine 0.95 08/17/2021 Sodium 141 08/17/2021 Potassium 3.7 08/17/2021 Chloride 105 08/17/2021 CO2 25 08/17/2021 Protein, Total 7.1 08/17/2021 Albumin 4.4 08/17/2021 Calcium 9.3 08/17/2021 Alkaline Phosphatase 62 08/17/2021 Bilirubin, Total 0.3 08/17/2021 AST 22 08/17/2021 ALT 34 08/17/2021 Last 2 Encounter Wt Readings: Date: Wt: 02/07/2022 96.3 kg (212 lb 3.2 oz) 12/01/2021 94.6 kg (208 lb 9.6 oz) Component Latest Ref Rng & Units 05/29/2012 08/17/2021 Protein, Total 6.3 - 8.0 g/dL 7.1 Albumin 3.9 - 4.9 g/dL 4.4 Calcium 8.5 - 10.2 mg/dL 9.3 Bilirubin, Total 0.2 - 1.3 mg/dL 0.3 Alkaline Phosphatase 34 - 123 U/L 62 AST 13 - 35 U/L 22 Glucose 74 - 99 mg/dL 111 (H) BUN 7 - 21 mg/dL 14 Creatinine 0.58 - 0.96 mg/dL 0.95 Sodium 136 - 144 mmol/L 141 Potassium 3.7 - 5.1 mmol/L 3.7 Chloride 97 - 105 mmol/L 105 CO2 22 - 30 mmol/L 25 Anion Gap 9 - 18 mmol/L 11 ALT 7 - 38 U/L 34 eGFR- >60 eGFR-All Other Races . >60 Glucose, [place] 65 - 100 mg/dL 82 BUN, [place] 10 - 25 mg/dL 17 Total Protein, Cecily 6.0 - 8.4 g/dL 7.2 Albumin, Cecily 3.5 - 5.0 g/dL 4.2 Globulin, [place] 1.5 - 4.5 g/dL 3.0 Bilirub, Tot, Cecily 0.00 - 1.50 mg/dL 0.19 Sodium, [place] 132 - 148 mmol/L 139 Potassium, [place] 3.5 - 5.0 mmol/L 4.2 Chloride, Cecily 98 - 110 mmol/L 103 CO2, Cecily 23.0 - 32.0 mmol/L 30.8 Alk Phos, [place] 40 - 150 U/L 57 AST, Cecily 7 - 40 U/L 17 ALT, Cecily 0 - 45 U/L 32 Calcium, [place] 8.5 - 10.5 mg/dL 8.5 Creatinine, Cecily 0.7 - 1.4 mg/dL 0.8 Mixed hyperlipidemia Current medication Simvastatin 40 mg daily at bedtime Taking medication consistently No Observing low cholesterol high fiber diet No Muscle aches No Stomach complaints/ diarrhea No Last 2 Lipids: Component Latest Ref Rng & Units 11/08/2019 08/17/2021 Cholesterol, Total <200 mg/dL 132 140 Triglyceride <150 mg/dL 134 187 (H) HDL Cholesterol >39 mg/dL 45 40 LDL Cholesterol <100 mg/dL 60 63 Non HDL Cholesterol <130 mg/dL 87 100 Fasting Time hrs 10 10 VLDL Cholesterol <30 mg/dL 27 37 (H) TC:HDL Ratio <5.10 2.93 3.50 LDL:HDL Ratio <2.54 1.33 1.58 Component Latest Ref Rng & Units 05/29/2012 08/17/2021 Protein, Total 6.3 - 8.0 g/dL 7.1 Albumin 3.9 - 4.9 g/dL 4.4 Calcium 8.5 - 10.2 mg/dL 9.3 Bilirubin, Total 0.2 - 1.3 mg/dL 0.3 Alkaline Phosphatase 34 - 123 U/L 62 AST 13 - 35 U/L 22 Glucose 74 - 99 mg/dL 111 (H) BUN 7 - 21 mg/dL 14 Creatinine 0.58 - 0.96 mg/dL 0.95 Sodium 136 - 144 mmol/L 141 Potassium 3.7 - 5.1 mmol/L 3.7 Chloride 97 - 105 mmol/L 105 CO2 22 - 30 mmol/L 25 Anion Gap 9 - 18 mmol/L 11 ALT 7 - 38 U/L 34 eGFR- >60 eGFR-All Other Races . >60 Glucose, Cecily 65 - 100 mg/dL 82 BUN, Cecily 10 - 25 mg/dL 17 Total Protein, [place] 6.0 - 8.4 g/dL 7.2 Albumin, Cecily 3.5 - 5.0 g/dL 4.2 Globulin, [place] 1.5 - 4.5 g/dL 3.0 Bilirub, Tot, [place] 0.00 - 1.50 mg/dL 0.19 Sodium, Cecily 132 - 148 mmol/L 139 Potassium, [place] 3.5 - 5.0 mmol/L 4.2 Chloride, Cecily 98 - 110 mmol/L 103 CO2, [place] 23.0 - 32.0 mmol/L 30.8 Alk Phos, Cecily 40 - 150 U/L 57 AST, [place] 7 - 40 U/L 17 ALT, Cecily 0 - 45 U/L 32 Calcium, [place] 8.5 - 10.5 mg/dL 8.5 Creatinine, [place] 0.7 - 1.4 mg/dL 0.8 Depressive disorder Current medications: Buspirone 30 mg twice daily Sertraline 25 mg day 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 Current medications: Celecoxib 200 mg daily Tizanidine twice a day Reactive Airways Current medications: Albuterol HFA 2 puffs every 4 hours as needed URI 2 weeks ago: only uses when ill. Persistent symptoms but improving. No fever or chills. No chest pain, no sputum production. Tobacco use disorder Still vaping: Urged to quit again. HISTORIES FAMILY HISTORY Problem Relation Age of Onset Diabetes Mother Diabetes Father Colon Cancer Father 61 Diabetes Maternal Grandmother other (Parkinson's) Maternal Grandmother Stroke Maternal Grandfather Diabetes Maternal Grandfather PAST MEDICAL HISTORY Diagnosis Date ABN GLUCOSE-ANTEPARTUM 05/23/2006 ASTHMA UNSPECIFIED 05/23/2006 Calculus of ureter 05/23/2006 Callus of foot Callus of foot COMMON MIGRAINE W/O MENTN INTRACT 05/23/2006 DEPRESSIVE DISORDER NEC 08/20/200606/09 -Stable, no meds Family history of diabetes mellitus 05/23/2006 Mother, Father, Maternal Grandparents FAMILY HX DIABETES MELLITUS 05/23/2006 Mother, Father, Maternal Grandparents Fatty liver 06/05/2009 CT Scan 01/06, showed diffuse fatty liver. LFTs elevated in past, but 06/09 - normal GOITER NOS 09/28/2006 TSH normal Lumbago 05/23/2006 Mild intermittent asthma without complication 05/23/2006 Since age 11. No medication. Last attack > 10 years OBESITY NOS 05/23/2006 Peripheral autonomic neuropathy due to diabetes mellitus (HCC) PMH - PAST MEDICAL HISTORY OF kidney stones Polycystic ovaries 05/23/2006 Polycystic ovaries 05/23/2006 Snoring Sprain of lumbar region 08/04/2014 Tobacco use disorder 06/05/2009 Type II or unspecified type diabetes mellitus without mention of complication, not stated as uncontrolled 06/05/2009 Unspecified asthma(493.90) PAST SURGICAL HISTORY Procedure Laterality Date DELIVERY ONLY , low cervical COLONOSCOPY 08/28/2018 hemorrhoid banding LAPAROSCOPY SURG CHOLECYSTECTOMY Cholecystectomy, lap MYRINGOTOMY ASPIR&/EUSTACHIAN TUBE NFLTJ ANES Myringotomy/tubes PAST SURGICAL HISTORY OF stents in ureter for kidney stones PAST SURGICAL HISTORY OF 08/04/14 lumbar pain injections. TONSILLECTOMY PRIMARY/SECONDARY <AGE 13 Tonsillectomy Social History Tobacco Use Smoking status: Former Smoker Packs/day: 0.30 Years: 3.00 Pack years: 0.90 Types: Cigarettes Quit date: 09/10/2013 Years since quittin.4 Smokeless tobacco: Never Used Tobacco comment: uses E cigs Vaping Use Vaping Use: current everyday user Substances: Nicotine, Flavoring Devices: Refillable tank Substance Use Topics Alcohol use: No Drug use: No ACTIVE PROBLEM LIST Common Migraine Polycystic Ovaries Obesity Due to Excess Calories Lumbago Depressive Disorder Goiter, Unspecified Fatty Liver Hyperlipidemia Diabetes Mellitus Type 2, Controlled, Without Complications (Hcc) Tobacco Use Disorder Porokeratosis Cervicalgia Displacement of Lumbar Intervertebral Disc Without Myelopathy Rls (Restless Legs Syndrome) Hospital Discharge Follow-Up Current Outpatient Medications Medication Sig Dispense Refill amitriptyline (ELAVIL) 50 mg tablet Take 1-2 tablets by mouth daily at bedtime. 60 tablet 4 topiramate (TOPAMAX) 50 mg tablet Take 1 tablet by mouth twice daily. 120 tablet 1 omega-3 fatty acids (FISH OIL CONCENTRATE) 1,000 mg cap Take 1,000 mg by mouth once daily. HYDROcodone-acetaminophen (NORCO) 5-325 mg per tablet Take 5-325 tablets by mouth twice daily as needed. 0 sertraline (ZOLOFT) 25 mg tablet Take 1 tablet by mouth once daily. 30 tablet 5 simvastatin (ZOCOR) 40 mg tablet Take 1 tablet by mouth daily at bedtime. 30 tablet 5 busPIRone HCl 30 mg tablet Take 1 tablet by mouth twice daily. 60 tablet 5 metFORMIN (GLUCOPHAGE) 850 mg tablet Take 1 tablet by mouth twice daily with meals. 60 tablet 5 medroxyPROGESTERone (DEPO-PROVERA) 150 mg/mL Inject 1 mL intramuscularly every 12 weeks. 1 Syringe 3 propranolol (INDERAL) 40 mg tablet Take 1 tablet by mouth twice daily. (Patient taking differently: Take 20 mg by mouth twice daily. ) 60 tablet 5 valACYclovir (VALTREX) 1 gram At onset of cold sore: one tab immediately and repeat in 12 hours (2 doses total) 12 tablet 1 docosahexanoic acid/epa (FISH OIL ORAL) Take by mouth. multivit-minerals/ferrous fum (MULTI VITAMIN ORAL) Take by mouth. celecoxib (CELEBREX) 200 mg capsule Take 200 mg by mouth once daily. TIZANIDINE HCL (ZANAFLEX ORAL) Take by mouth twice daily. Blood Glucose Control High and Low (FREESTYLE CONTROL) soln Test controls as needed. Dx: Type 2 DM - Controlled E11.9 1 Each 3 albuterol HFA (PROAIR HFA) 90 mcg/actuation inhaler Inhale 2 Puffs as instructed every 4 hours as needed. 1 Inhaler 0 blood sugar diagnostic (FREESTYLE LITE STRIPS) test strip Test blood sugar(s) 1 times daily. Dx: Type 2 DM - Controlled E11.9 Insulin: No 50 Strip 11 Lancets lancets Test blood sugar(s) 1 times daily. Dx: E11.9. Insulin: No 1 Each 11 Blood-Glucose Meter (FREESTYLE LITE METER) monitoring kit 1 Each as needed (Test once day or as needed). 1 Each 0 No current facility-administered medications for this visit. HEPATITIS B(1 of 3 - Risk 3-dose series) Never done PNEUMOCOCCAL(2 - PCV) due on 06/05/2010 URINE ALBUMIN:CREATININE RATIO due on 11/07/2020 HBA1C due on 02/15/2022 EXAM: BP 116/72 Pulse 75 Resp 16 Wt 97.1 kg (214 lb) LMP 12/21/2020 (Exact Date) SpO2 99% BMI 39.38 kg/m Pleasant obese adult woman in no acute distress. Alert and oriented all spheres. Normal affect and cognition. Speech normal. No deficits to learning or comprehension. Skin warm, dry, pink to lips and nailbeds. Normal turgor. Respirations regular and unlabored. HEENT: NCAT. No scleral icterus or conjunctival injection. TM's clear. Nose and oropharynx free from injection or lesion. Oral membranes moist and pink. No cervical lymph nodes. Thyroid non-tender, no masses, or enlargement. Carotids pulses 2+/4+ without bruits. No JVD with HOB at 30 degrees. Chest is normal shape. Lungs are clear to all roberson with good air exchange through out. HRRR without murmur or gallop. No lifts, heaves, or rubs. Extrem: no clubbing or cyanosis. Edema: none. Extremities are warm and pink with prompt capillary refill. ASSESSMENT/PLAN: 1. Controlled type 2 diabetes mellitus without complication, without long-term current use of insulin (HCC) - ICD9: 250.00, ICD10: E11.9 (primary diagnosis) Controlled. - Continue current medications 2. Depressive disorder - ICD9: 311, ICD10: F32.A Stable. Wants to lose weight. trouble sleeping Disucssed options for Remeron, Pristiq Reviewed options for medications, patient identifies was most important to her as executive function and weight loss. We will proceed with Pristiq 25 mg daily and titrate. Patient was given weaning instructions for sertraline, may continue buspirone as needed. Needs to be cautious of mixing all 3 medications as may increase risk of side effects. 3. Migraine without aura and without status migrainosus, not intractable - ICD9: 346.10, ICD10: G43.009 Stable with improved episodic frequency. 4. Tobacco use disorder - ICD9: 305.1, ICD10: F17.200 - Cessation encouraged. - Physiologic and physical aspects of tobacco addiction as well as strategies for quitting were discussed. - Counseling was given focusing on the harmful effects of this addiction especially given the patient's medical condition(s) which will be worsened because of the chemicals in tobacco. 5. Mixed hyperlipidemia - ICD9: 272.2, ICD10: E78.2 - to be determined upon return of lab results - Encouraged following a low fat, low cholesterol diet. - Discussed the benefits of regular aerobic exercise and weight loss. - Encouraged following a low carbohydrate, healthy oil intake diet. 6. Viral URI with cough - ICD9: 465.9, ICD10: J06.9 - Discussed viral etiology and rationale for treatment. - Symptomatic treatment with prn analgesia - Supportive care with fluids and rest - ALBUTEROL SULFATE HFA 90 MCG/ACTUATION AEROSOL INHALER Follow-up in 4 weeks on med changes. Albert Ferrer PA-C documented in this encounter [facility] 02-07-2022 Instructions David Alba APRN.BIOINFORMATICS COMPUTER SCIENTIST - 02/07/2022 10:26 AM EDT How to Manage Common Symptoms Associated with COVID for Adults Fever- Fever is a temperature over 100.4 F and can occur when the body is fighting an infection. To help treat a fever: Drink plenty of fluids and stay well hydrated. Eat small amounts of easy to digest food. Rest. Your body needs rest to recover, but getting up and moving around the house frequently is a good idea. You should try to continue doing your normal daily activities (bathing, toileting, grooming, cooking), though you will probably feel tired, and need to rest often. Avoid any heavy activity or exercise, as this will increase your body temperature. Dress in light clothing and stay covered in a light sheet. Keep the room temperature cool. Take a slightly warm (not cold or cool) bath, or apply damp washcloths to the forehead and wrists. Cough- Cough is a common symptom associated with COVID and can be bothersome. To help treat a cough: Stay well hydrated. Try warm water or tea with lemon and/or honey to help soothe the cough. Use a humidifier to add moisture to the air. Try a product with menthol, like a cough drop or a rub for your chest such as Vicks, which can help reduce cough. Try cough drops. Avoid smoking and other strong odors or perfumes. Try breathing exercises to keep your lungs open and clear. Take a big deep breath through your nose and hold for 5 seconds before slowly releasing. Repeat frequently, while you are awake. Congestion- Runny nose or nasal congestion can occur with COVID. Treatment can help relieve symptoms: Try OTC nasal saline spray, or nasal saline rinse to relieve mucus congestion. Nasal strips can help keep nasal passages open, to increase airflow. Elevating your head with an extra pillow in bed can help reduce congestion. Using a humidifier can increase moisture in the air, and make breathing easier. Sore Throat- Another common symptom with COVID, can be managed at home by: Stay well hydrated. Gargle with salt water mix teaspoon salt with 1 cup of warm water and gargle. This helps to loosen mucus in the back of the throat and may reduce discomfort. Try ice chips, popsicles or lozenges to soothe the throat. Nausea/Vomiting/Diarrhea- These are common symptoms, and staying hydrated is most important. If you are nauseous or vomiting, start with small sips of water every 10-15 minutes and increase as tolerated. You can try sucking an ice cube too. If tolerating, you can try pedialyte or Gatorade, or flat sprite or ora-tanner. Start slowly and increase as you are able to. Instead of meals, try smaller, more frequent snacks. Try eating bland foods like crackers, toast, rice, and applesauce. Avoid spicy, greasy or fried foods and dairy containing foods. Even if you aren't feeling hungry due to lack of smell or taste, it is important to try to take in some food when you are able. After drinking and eating, rest in an upright position for up to two hours as needed to help decrease nauseous feelings. Try closing your eyes, avoid moving and watching TV. Avoid strong odors that can make you feel more nauseated. When to seek emergency medical attention Look for emergency warning signs for COVID-19. If having any of these symptoms, seek emergency medical care immediately: Trouble breathing Persistent pain or pressure in the chest New confusion Inability to wake or stay awake Bluish lips or face *This list is not all possible symptoms. Please call your medical provider for any other symptoms that are severe or concerning to you. documented in this encounter [facility] 02-07-2022 History of Present illness Narrative Subjective HPI Nontoxic-appearing female presents urgent care chief complaint URI-like symptoms. Duration of symptoms 4 days. Associated symptoms cough chest congestion nasal congestion ear congestion and sneezing. States son had similar signs and symptoms late last week. He has since improved. Denies any OTC medications today. States symptoms are not worsening not improving. 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 Did take a negative COVID-19 test earlier this week. Denies any fevers productive cough chest pain shortness of breath pleuritic pain hemoptysis nausea vomiting abdominal pain or change in bowel or bladder habits. Past medical history prescription medication use and allergies reviewed. .Patient presents with: Cough: cough, chest and head congestion, and sneezing x 4 days PAST MEDICAL HISTORY Diagnosis Date ABN GLUCOSE-ANTEPARTUM 05/23/2006 ASTHMA UNSPECIFIED 05/23/2006 Calculus of ureter 05/23/2006 Callus of foot Callus of foot COMMON MIGRAINE W/O MENTN INTRACT 05/23/2006 DEPRESSIVE DISORDER NEC 08/20/200606/09 -Stable, no meds Family history of diabetes mellitus 05/23/2006 Mother, Father, Maternal Grandparents FAMILY HX DIABETES MELLITUS 05/23/2006 Mother, Father, Maternal Grandparents Fatty liver 06/05/2009 CT Scan 01/06, showed diffuse fatty liver. LFTs elevated in past, but 06/09 - normal GOITER NOS 09/28/2006 TSH normal Lumbago 05/23/2006 Mild intermittent asthma without complication 05/23/2006 Since age 11. No medication. Last attack > 10 years OBESITY NOS 05/23/2006 Peripheral autonomic neuropathy due to diabetes mellitus (HCC) PMH - PAST MEDICAL HISTORY OF kidney stones Polycystic ovaries 05/23/2006 Polycystic ovaries 05/23/2006 Snoring Sprain of lumbar region 08/04/2014 Tobacco use disorder 06/05/2009 Type II or unspecified type diabetes mellitus without mention of complication, not stated as uncontrolled 06/05/2009 Unspecified asthma(493.90) PAST SURGICAL HISTORY Procedure Laterality Date DELIVERY ONLY , low cervical COLONOSCOPY 08/28/2018 hemorrhoid banding LAPAROSCOPY SURG CHOLECYSTECTOMY Cholecystectomy, lap MYRINGOTOMY ASPIR&/EUSTACHIAN TUBE NFLTJ ANES Myringotomy/tubes PAST SURGICAL HISTORY OF stents in ureter for kidney stones PAST SURGICAL HISTORY OF 08/04/14 lumbar pain injections. TONSILLECTOMY PRIMARY/SECONDARY <AGE 13 Tonsillectomy ALLERGIES Avelox [Moxifloxacin Hcl], Doxy [Doxycycline], Penicillins, and Prozac [Fluoxetine Hcl] MEDICATIONS amitriptyline (ELAVIL) 50 mg tablet Take 1-2 tablets by mouth daily at bedtime. topiramate (TOPAMAX) 50 mg tablet Take 1 tablet by mouth twice daily. omega-3 fatty acids (FISH OIL CONCENTRATE) 1,000 mg cap Take 1,000 mg by mouth once daily. HYDROcodone-acetaminophen (NORCO) 5-325 mg per tablet Take 5-325 tablets by mouth twice daily as needed. sertraline (ZOLOFT) 25 mg tablet Take 1 tablet by mouth once daily. simvastatin (ZOCOR) 40 mg tablet Take 1 tablet by mouth daily at bedtime. busPIRone HCl 30 mg tablet Take 1 tablet by mouth twice daily. metFORMIN (GLUCOPHAGE) 850 mg tablet Take 1 tablet by mouth twice daily with meals. medroxyPROGESTERone (DEPO-PROVERA) 150 mg/mL Inject 1 mL intramuscularly every 12 weeks. propranolol (INDERAL) 40 mg tablet Take 1 tablet by mouth twice daily. valACYclovir (VALTREX) 1 gram At onset of cold sore: one tab immediately and repeat in 12 hours (2 doses total) docosahexanoic acid/epa (FISH OIL ORAL) Take by mouth. multivit-minerals/ferrous fum (MULTI VITAMIN ORAL) Take by mouth. celecoxib (CELEBREX) 200 mg capsule Take 200 mg by mouth once daily. TIZANIDINE HCL (ZANAFLEX ORAL) Take by mouth twice daily. Blood Glucose Control High and Low (FREESTYLE CONTROL) soln Test controls as needed. Dx: Type 2 DM - Controlled E11.9 albuterol HFA (PROAIR HFA) 90 mcg/actuation inhaler Inhale 2 Puffs as instructed every 4 hours as needed. blood sugar diagnostic (FREESTYLE LITE STRIPS) test strip Test blood sugar(s) 1 times daily. Dx: Type 2 DM - Controlled E11.9 Insulin: No Lancets lancets Test blood sugar(s) 1 times daily. Dx: E11.9. Insulin: No Blood-Glucose Meter (FREESTYLE LITE METER) monitoring kit 1 Each as needed (Test once day or as needed). FAMILY HISTORY Problem Relation Age of Onset Diabetes Mother Diabetes Father Colon Cancer Father 61 Diabetes Maternal Grandmother other (Parkinson's) Maternal Grandmother Stroke Maternal Grandfather Diabetes Maternal Grandfather Social History Tobacco Use Smoking status: Former Smoker Packs/day: 0.30 Years: 3.00 Pack years: 0.90 Types: Cigarettes Quit date: 09/10/2013 Years since quittin.4 Smokeless tobacco: Never Used Tobacco comment: uses E cigs Vaping Use Vaping Use: current everyday user Substances: Nicotine, Flavoring Devices: 1SDK Substance Use Topics Alcohol use: No Drug use: No BP 112/78 Pulse 76 Temp 36.9 C (98.5 F) (Tympanic) Resp 18 Wt 96.3 kg (212 lb 3.2 oz) LMP 12/21/2020 (Exact Date) SpO2 98% BMI 39.05 kg/m Review of Systems Constitutional: Positive for malaise/fatigue. Negative for chills and fever. HENT: Positive for congestion and sore throat. Negative for ear discharge, ear pain and sinus pain. Eyes: Negative for blurred vision, pain, discharge and redness. Respiratory: Positive for cough. Negative for hemoptysis, sputum production, shortness of breath, wheezing and stridor. Cardiovascular: Negative for chest pain. Gastrointestinal: Negative for abdominal pain, diarrhea, nausea and vomiting. Musculoskeletal: Positive for myalgias. Skin: Negative for itching and rash. Neurological: Negative for dizziness and headaches. Objective Physical Exam Vitals and nursing note reviewed. Constitutional: General: She is not in acute distress. Appearance: She is not diaphoretic. HENT: Head: Normocephalic and atraumatic. Jaw: No trismus, tenderness, swelling or pain on movement. Right Ear: Hearing, tympanic membrane, ear canal and external ear normal. No decreased hearing noted. No drainage, swelling or tenderness. No mastoid tenderness. Tympanic membrane is not perforated, erythematous or bulging. Left Ear: Hearing, tympanic membrane, ear canal and external ear normal. No decreased hearing noted. No drainage, swelling or tenderness. No mastoid tenderness. Tympanic membrane is not perforated, erythematous or bulging. Nose: Congestion present. Mouth/Throat: Lips: Lind. Mouth: Mucous membranes are moist. Pharynx: Oropharynx is clear. Uvula midline. No pharyngeal swelling, oropharyngeal exudate, posterior oropharyngeal erythema or uvula swelling. Eyes: General: Right eye: No discharge. Left eye: No discharge. Conjunctiva/sclera: Conjunctivae normal. Pupils: Pupils are equal, round, and reactive to light. Cardiovascular: Rate and Rhythm: Normal rate and regular rhythm. Heart sounds: Normal heart sounds. Pulmonary: Effort: Pulmonary effort is normal. No tachypnea, accessory muscle usage or respiratory distress. Breath sounds: Normal breath sounds. No stridor. No wheezing, rhonchi or rales. Abdominal: Palpations: Abdomen is soft. Tenderness: There is no abdominal tenderness. Musculoskeletal: General: No tenderness. Normal range of motion. Cervical back: Normal range of motion and neck supple. No rigidity or tenderness. Lymphadenopathy: Head: Right side of head: No submental, submandibular, tonsillar, preauricular, posterior auricular or occipital adenopathy. Left side of head: No submental, submandibular, tonsillar, preauricular, posterior auricular or occipital adenopathy. Cervical: No cervical adenopathy. Right cervical: No superficial or posterior cervical adenopathy. Left cervical: No superficial or posterior cervical adenopathy. Skin: General: Skin is warm and dry. Findings: No rash. Neurological: Mental Status: She is alert and oriented to person, place, and time. ASSESSMENT/PLAN: 1. Viral illness - ICD9: 079.99, ICD10: B34.9 - COVID WITH FLUA+B, ROUTINE Patient diagnosed with viral illness. No evidence of bacterial infection. Will test for COVID-19 and influenza. Results pending. Alternative diagnosis discussed. Patient was educated on supportive therapies. Patient will follow up with primary care provider as needed. Patient was instructed to immediately proceed to emergency room for any new, worsening, or symptoms lasting longer than anticipated. The patient's clinical presentation is otherwise unremarkable at this time. Based on exam and clinical finding, the patient is stable for discharge. Plan of care was discussed with patient. Patient verbalizes understanding and agrees to plan of care. This note was generated using [employer] software. It may contain errors in wording, punctuation, or spelling. David Alba [email or web address] documented in this encounter [facility] 01-31-2022 Miscellaneous Notes Call to pt and notified of results below, pt scheduled for toenail removal. ----- Message from Mirza Daniel sent at 01/31/2022 12:47 PM EDT ----- Please call patient to inform her that her circulation is normal. If she would like to have the toenails removed, she can make follow-up to do so Mirza Daniel DPM documented in this encounter [facility] 01-29-2022 Miscellaneous Notes Patient has been identified by name and date of : Yes Patient phones for refill(s): Pending Prescriptions Disp Refills AMITRIPTYLINE 50 MG TABLET 60 tablet 4 Sig: Take 1-2 tablets by mouth daily at bedtime. MALINI: No TOPIRAMATE 50 MG TABLET Sig: Take 1 tablet by mouth twice daily. MALINI: No Date of last office visit in primary care: 08/23/21 Please advise. Thank you. Myranda Ruiz LPN documented in this encounter [facility] 01-25-2022 Instructions Mirza Daniel - 01/25/2022 10:16 AM EDT Diabetes Foot Care Instructions When you have diabetes, proper foot care is very important. Poor foot care may lead to amputation of a foot or leg. As a person with diabetes, you are more vulnerable to foot problems, because diabetes can damage your nerves and reduce blood flow to your feet. Here are some diabetes foot care tips to follow: Wash and Dry Your Feet Daily Use mild soaps Use warm water Pat your skin dry; do not rub. Thoroughly dry your feet. After washing, use lotion on your feet to prevent cracking. Do not put lotion between your toes. Examine Your Feet Each Day Check the tops and bottoms of your feet. Have someone else look at your feet if you cannot see them. Check for dry, cracked skin. Look for blisters, cuts, scratches, or other sores. Check for redness, increased warmth, or tenderness when touching any area of your feet. Check for ingrown toenails, corns, and calluses. If you get a blister or sore from your shoes, do not pop it. Apply a bandage and wear a different pair of shoes. Take Care of Your Toenails Cut toenails after bathing, when they are soft. Cut toenails straight across and smooth with a nail file. Avoid cutting into the corners of toes. Do not cut cuticles. If you have neuropathy (or decreased sensation in your feet) a telemarketing representative should always cut your toenails. Be Careful When Exercising Walk and exercise in comfortable shoes. Do not exercise when you have open sores on your feet. Protect Your Feet With Shoes and Socks Never go barefoot. Always protect your feet by wearing shoes or hard-soled slippers or footwear. Avoid shoes with high heels and pointed toes. Avoid shoes that expose your toes or heels (such as open-toed shoes or sandals). These types of shoes increase your risk for injury and potential infections. Try on new footwear with the type of socks you usually wear. Do not wear new shoes for more than an hour at a time. Change your socks daily. Look and feel inside your shoes before putting them on to make sure there are no foreign objects or rough areas. Avoid tight socks. Wear natural-fiber socks (cotton, wool, or a cotton-wool blend). Wear special shoes if your health care provider recommends them. Wear shoes/boots that will protect your feet from various weather conditions (cold, moisture, etc.). Make sure your shoes fit properly. If you have neuropathy (nerve damage), you may not notice that your shoes are too tight. Perform the footwear test described below. Footwear Test Use this simple test to see if your shoes fit correctly: Stand on a piece of paper. (Make sure you are standing and not sitting, because your foot changes shape when you stand.) Trace the outline of your foot. Trace the outline of your shoe. Compare the tracings: Is the shoe too narrow? Is your foot crammed into the shoe? The shoe should be at least 1/2 inch longer than your longest toe and as wide as your foot. Proper Shoe Choices The following types of shoes are best for people with diabetes Closed toes and heels Leather uppers without a seam inside At least 1/2 inch extra space at the end of your longest toe Inside of shoe should be soft with no rough areas Outer sole should be made of stiff material Shoes should be at least as wide as your feet Tips for Foot Care in Diabetes Don't wait to treat a minor foot problem if you have diabetes. Follow your health care provider's guidelines and first aid guidelines. Report foot injuries and infections to your health care provider immediately. Check water temperature with your elbow, not your foot. Do not use a heating pad on your feet. Do not cross your legs. Do not self-treat your corns, calluses, or other foot problems. Go to your health care provider or telemarketing representative to treat these conditions. documented in this encounter [facility] 01-25-2022 History of Present illness Narrative Consultation requested by Dr. josue for an opinion regarding fungal toenails. My final recommendations will be communicated back to the requesting physician by way of shared Medical record or letter to requesting physician via US mail. Initial Office Visit Subjective: This 42 year old female presents to clinic for diabetic foot check. Patient has the following complaints: discoloration of b/l hallux toenail that causes her pain. Patient reports the toenails have been discolored for several years. She has found that the pain is getting more severe when she wears shoes. Patient has no past treatment for the nails. Patient admits to being diabetic for 14 years now. Patient -B/T/N in feet at this time. Patient -pain in legs when walking. No other pedal complaints at this time. Patient currently vapes. No change in medications or medical history since last visit. PAIN EVALUATION No data found in the last 1 encounters. Hemoglobin A1C (%) Date Value 08/17/2021 6.3 02/04/2020 6.5 11/08/2019 6.4 01/23/2019 6.0 08/17/2018 5.9 PCP: Albert Ferrer PA-C PAST MEDICAL HISTORY Diagnosis Date ABN GLUCOSE-ANTEPARTUM 05/23/2006 ASTHMA UNSPECIFIED 05/23/2006 Calculus of ureter 05/23/2006 Callus of foot Callus of foot COMMON MIGRAINE W/O MENTN INTRACT 05/23/2006 DEPRESSIVE DISORDER NEC 08/20/200606/09 -Stable, no meds Family history of diabetes mellitus 05/23/2006 Mother, Father, Maternal Grandparents FAMILY HX DIABETES MELLITUS 05/23/2006 Mother, Father, Maternal Grandparents Fatty liver 06/05/2009 CT Scan 01/06, showed diffuse fatty liver. LFTs elevated in past, but 06/09 - normal GOITER NOS 09/28/2006 TSH normal Lumbago 05/23/2006 Mild intermittent asthma without complication 05/23/2006 Since age 11. No medication. Last attack > 10 years OBESITY NOS 05/23/2006 Peripheral autonomic neuropathy due to diabetes mellitus (HCC) PMH - PAST MEDICAL HISTORY OF kidney stones Polycystic ovaries 05/23/2006 Polycystic ovaries 05/23/2006 Snoring Sprain of lumbar region 08/04/2014 Tobacco use disorder 06/05/2009 Type II or unspecified type diabetes mellitus without mention of complication, not stated as uncontrolled 06/05/2009 Unspecified asthma(493.90) Current Outpatient Medications Medication Sig topiramate (TOPAMAX) 50 mg tablet Take 1 tablet by mouth twice daily. omega-3 fatty acids (FISH OIL CONCENTRATE) 1,000 mg cap Take 1,000 mg by mouth once daily. HYDROcodone-acetaminophen (NORCO) 5-325 mg per tablet Take 5-325 tablets by mouth twice daily as needed. sertraline (ZOLOFT) 25 mg tablet Take 1 tablet by mouth once daily. simvastatin (ZOCOR) 40 mg tablet Take 1 tablet by mouth daily at bedtime. busPIRone HCl 30 mg tablet Take 1 tablet by mouth twice daily. metFORMIN (GLUCOPHAGE) 850 mg tablet Take 1 tablet by mouth twice daily with meals. amitriptyline (ELAVIL) 50 mg tablet Take 1-2 tablets by mouth daily at bedtime. medroxyPROGESTERone (DEPO-PROVERA) 150 mg/mL Inject 1 mL intramuscularly every 12 weeks. propranolol (INDERAL) 40 mg tablet Take 1 tablet by mouth twice daily. (Patient taking differently: Take 20 mg by mouth twice daily. ) valACYclovir (VALTREX) 1 gram At onset of cold sore: one tab immediately and repeat in 12 hours (2 doses total) docosahexanoic acid/epa (FISH OIL ORAL) Take by mouth. multivit-minerals/ferrous fum (MULTI VITAMIN ORAL) Take by mouth. celecoxib (CELEBREX) 200 mg capsule Take 200 mg by mouth once daily. TIZANIDINE HCL (ZANAFLEX ORAL) Take by mouth twice daily. Blood Glucose Control High and Low (FREESTYLE CONTROL) soln Test controls as needed. Dx: Type 2 DM - Controlled E11.9 albuterol HFA (PROAIR HFA) 90 mcg/actuation inhaler Inhale 2 Puffs as instructed every 4 hours as needed. blood sugar diagnostic (FREESTYLE LITE STRIPS) test strip Test blood sugar(s) 1 times daily. Dx: Type 2 DM - Controlled E11.9 Insulin: No Lancets lancets Test blood sugar(s) 1 times daily. Dx: E11.9. Insulin: No Blood-Glucose Meter (FREESTYLE LITE METER) monitoring kit 1 Each as needed (Test once day or as needed). No current facility-administered medications for this visit. ALLERGIES Allergen Reactions Avelox [Moxifloxaci* Rash Doxy [Doxycycline] GI Upset Penicillins Other: See Comments Mother does not recall what the reaction was and was told that she cannot take it Prozac [Fluoxetine * Other: See Comments Mother had side effects from this PAST SURGICAL HISTORY Procedure Laterality Date DELIVERY ONLY , low cervical COLONOSCOPY 08/28/2018 hemorrhoid banding LAPAROSCOPY SURG CHOLECYSTECTOMY Cholecystectomy, lap MYRINGOTOMY ASPIR&/EUSTACHIAN TUBE NFLTJ ANES Myringotomy/tubes PAST SURGICAL HISTORY OF stents in ureter for kidney stones PAST SURGICAL HISTORY OF 08/04/14 lumbar pain injections. TONSILLECTOMY PRIMARY/SECONDARY <AGE 13 Tonsillectomy FAMILY HISTORY Problem Relation Age of Onset Diabetes Mother Diabetes Father Colon Cancer Father 61 Diabetes Maternal Grandmother other (Parkinson's) Maternal Grandmother Stroke Maternal Grandfather Diabetes Maternal Grandfather Social History Tobacco Use Smoking status: Former Smoker Packs/day: 0.30 Years: 3.00 Pack years: 0.90 Types: Cigarettes Quit date: 09/10/2013 Years since quittin.3 Smokeless tobacco: Never Used Tobacco comment: uses E cigs Vaping Use Vaping Use: current everyday user Substances: Nicotine, Flavoring Devices: [employer] Labs[employer] tank Substance Use Topics Alcohol use: No Drug use: No REVIEW OF SYSTEMS GENERAL: Negative for Malaise, significant weight loss, fever RESPIRATORY: Negative for cough, wheezing and shortness of breath CARDIOVASCULAR: Negative for chest pain, leg swelling and palpitations GI: Negative for abdominal discomfort, blood in stools or black stools and change in bowel habits : Negative for dysuria, frequency and incontinence MUSCULOSKELETAL: Negative for joint pain or swelling, back pain, and muscle pain. SKIN: Negative for lesions, rash, and itching. HEMATOLOGY/LYMPHOLOGY Negative for prolonged bleeding, bruising easily, and swollen nodes. ENDOCRINE: Negative for cold or heat intolerance, polyuria, polydipsia and goiter. NEURO: negative The remainder of the review of systems is noncontributory. Objective: Patient [facility] clinic [facility] Constitutional: Pt is a well developed 42 year old female who is alert, oriented, cooperative and in no apparent distress. Eyes: Following during examination. No redness or drainage. Respiratory: RR normal and nonlabored. Even breathing. No evidence of distress. Psychology: Patient is engaged during conversation. Normal affect and mood. Does not appear depressed or anxious. Vasc: DP and PT pulses are faint bilateral. CFT is less than 5 seconds bilateral. Skin temperature is warm to warm proximal to distal bilateral. There is no edema or varicosities noted. Hair growth absent. Neuro: Protective sensation is intact to the foot and toes when tested with the 5.07 SWM bilateral. Vibratory sensation is intact at the hallux bilateral. No Significant neurological defecits. Derm: Inspection and palpation performed. Nails 1 b/l are discolored-yellow, thick, crumbly, dystrophic and with subungal debris. Skin is of normal turgor and texture. Hyperkeratosis noted to not present. NO ulcerations, scars, verruca or other lesions noted. Ortho: Ankle joint DF is full with the knee extended and full with knee flexed. No pain or crepitus noted. STJ, MTJ ROM are full and free of pain or crepitus. Muscle strength is 5/5 for dorsiflexors, plantarflexors, inverters, everters. . Assessment: (L60.3) Onychodystrophy (primary encounter diagnosis) (R09.89) Diminished pulse (E11.9) Controlled type 2 diabetes mellitus without complication, Plan: 1. Patient was seen and evaluated. 2. Patient was instructed on the continued importance of diabetic foot care along with proper diet and keeping their blood sugar under control to prevent complications. Instructions given both oral and written. 3. We discussed the possible etiologies of discolored, dystrophic, and thickened nails including fungus, yeast, mold as well as in some instances, prior trauma, or mechanical causes such as repetitive microtrauma in shoe gear. We discussed topical medication for discolored toenails which has very low success but no major side effects. We discussed oral medication. Patient will need hepatic testing prior to use. Patient informed of risks associated with Lamisil. We discussed removal of toenails. Patient would like to proceed with removal of toenails. Given her history of smoking, I would like to recheck pvr. 4. Discussed debridement today. Patient decliend. Mirza Daniel DPM Patient presents with: Left Great Toe - New, Pain, Ingrown Toenail Right Great Toe - New, Pain, Ingrown Nail Diabetic Foot Check documented in this encounter [facility] 12-05-2021 History of Present illness Narrative Radiology Service Progress Note PATIENT NAME: Ana Hernandez DATE OF SERVICE: December 05, 2021 TIME: 8:33 AM PATIENT IDENTITY VERIFICATION COMPLETED USING TWO (2) IDENTIFIERS: Name and Date of confirmed by patient verbally. FALL SCREENING: Has the patient had 2 falls in the last year or 1 fall with injury or currently using an Ambulatory Assistive Device (Walker, Cane, Wheelchair, Crutches, etc.)? No PATIENT GENDER DATA: Female. status: : No status: NO. PATIENT RELEVANT IMPLANT DATA REVIEWED: Not Applicable RADIOLOGY DEPARTMENT: Mammography PERIPHERAL IV DATA: Not applicable SIGNED BY: RT Adelina(R) December 05, 2021 8:33 AM documented in this encounter [facility] 12-03-2021 Miscellaneous Notes Talked with patient about xray results. Placed a podiatry consult in for follow up due to patient still experiencing pain. Patient will call and follow up with podiatry. documented in this encounter [facility] 12-01-2021 History of Present illness Narrative Radiology Service Progress Note PATIENT NAME: Ana Hernandez DATE OF SERVICE: December 01, 2021 TIME: 11:31 AM PATIENT IDENTITY VERIFICATION COMPLETED USING TWO (2) IDENTIFIERS: Name and Date of confirmed by patient verbally. FALL SCREENING: Has the patient had 2 falls in the last year or 1 fall with injury or currently using an Ambulatory Assistive Device (Walker, Cane, Wheelchair, Crutches, etc.)? No PATIENT GENDER DATA: Female. status: : No status: NO. PATIENT RELEVANT IMPLANT DATA REVIEWED: Not Applicable RADIOLOGY DEPARTMENT: General X-ray: Exam(s) Completed: Lower Extremity X-Ray(s): Foot, Left and Wt. Bearing PERIPHERAL IV DATA: Not applicable SIGNED BY: RT Kiley(R) December 01, 2021 11:31 AM documented in this encounter [facility] 12-01-2021 History of Present illness Narrative Patient presents with: left foot pain: x 3 days HPI: Left foot pain: Duration: 3 days. Her son's knee landed on the foot Location: Top of the distal left foot Character: sharp and throbbing Radiation: No. Aggravating: bending, walking and touching Relieving: rest Pain relievers: Motrin and Tylenol Associated: bruising Pertinent negatives: Denies numbness MEDICATIONS: topiramate (TOPAMAX) 50 mg tablet Take 1 tablet by mouth twice daily. omega-3 fatty acids (FISH OIL CONCENTRATE) 1,000 mg cap Take 1,000 mg by mouth once daily. HYDROcodone-acetaminophen (NORCO) 5-325 mg per tablet Take 5-325 tablets by mouth twice daily as needed. sertraline (ZOLOFT) 25 mg tablet Take 1 tablet by mouth once daily. simvastatin (ZOCOR) 40 mg tablet Take 1 tablet by mouth daily at bedtime. busPIRone HCl 30 mg tablet Take 1 tablet by mouth twice daily. metFORMIN (GLUCOPHAGE) 850 mg tablet Take 1 tablet by mouth twice daily with meals. amitriptyline (ELAVIL) 50 mg tablet Take 1-2 tablets by mouth daily at bedtime. medroxyPROGESTERone (DEPO-PROVERA) 150 mg/mL Inject 1 mL intramuscularly every 12 weeks. propranolol (INDERAL) 40 mg tablet Take 1 tablet by mouth twice daily. valACYclovir (VALTREX) 1 gram At onset of cold sore: one tab immediately and repeat in 12 hours (2 doses total) docosahexanoic acid/epa (FISH OIL ORAL) Take by mouth. multivit-minerals/ferrous fum (MULTI VITAMIN ORAL) Take by mouth. celecoxib (CELEBREX) 200 mg capsule Take 200 mg by mouth once daily. TIZANIDINE HCL (ZANAFLEX ORAL) Take by mouth twice daily. Blood Glucose Control High and Low (FREESTYLE CONTROL) soln Test controls as needed. Dx: Type 2 DM - Controlled E11.9 albuterol HFA (PROAIR HFA) 90 mcg/actuation inhaler Inhale 2 Puffs as instructed every 4 hours as needed. blood sugar diagnostic (FREESTYLE LITE STRIPS) test strip Test blood sugar(s) 1 times daily. Dx: Type 2 DM - Controlled E11.9 Insulin: No Lancets lancets Test blood sugar(s) 1 times daily. Dx: E11.9. Insulin: No Blood-Glucose Meter (FREESTYLE LITE METER) monitoring kit 1 Each as needed (Test once day or as needed). ALLERGIES: ALLERGIES Allergen Reactions Avelox [Moxifloxaci* Rash Doxy [Doxycycline] GI Upset Penicillins Other: See Comments Mother does not recall what the reaction was and was told that she cannot take it Prozac [Fluoxetine * Other: See Comments Mother had side effects from this VITALS: BP 110/80 Pulse 71 Temp 36.3 C (97.4 F) (Tympanic) Resp 16 Wt 94.6 kg (208 lb 9.6 oz) LMP 12/21/2020 (Exact Date) SpO2 98% BMI 38.39 kg/m PE: Pleasant, in no acute distress. Foot: Left. Ecchymosis distal dorsal foot over the second through fourth metatarsals. Phalanges and first metatarsal are nontender. Mid to distal second through fifth metatarsals are tender to palpation. Mild limp in gait. ASSESSMENT/PLAN: 1. Foot pain, left - ICD9: 729.5, ICD10: M79.672 - XR FOOT GENERAL 3V AP/LAT/OBL LEFT - no obvious fractures or dislocation. Radiology interpretation is pending. The patient will be notified if there is a significant finding in the report not discussed at the time of the visit. Foot contusion. Continue supportive treatments with as needed analgesia and ice. Advance activity as tolerated. Felix Traore MD documented in this encounter [facility] 08-02-2021 History of Present illness Narrative Radiology Service Progress Note PATIENT NAME: Ana Hernandez DATE OF SERVICE: August 02, 2021 TIME: 7:32 PM PATIENT IDENTITY VERIFICATION COMPLETED USING TWO (2) IDENTIFIERS: Name and Date of confirmed by patient verbally. FALL SCREENING: Has the patient had 2 falls in the last year or 1 fall with injury or currently using an Ambulatory Assistive Device (Walker, Cane, Wheelchair, Crutches, etc.)? No PATIENT GENDER DATA: Female. status: : No status: NO. PATIENT RELEVANT IMPLANT DATA REVIEWED: Not Applicable RADIOLOGY DEPARTMENT: General X-ray: Exam(s) Completed: Upper Extremity X-Ray(s): Fingers/Thumb, right PERIPHERAL IV DATA: Not applicable SIGNED BY: RT Kiley(R) August 02, 2021 7:32 PM documented in this encounter [facility] 11-29-2018 History of Past i llness Narrative Problem Noted Date Resolved Date Transition of care performed with sharing of clinical summary 11/29/2018 08/23/2021 Sprain of lumbar region 08/04/2014 03/30/20 18 Mild intermittent asthma without complication 03/30/2018 Overview: Since age 11. No medication. Last attack > 10 years Abnormal maternal glucose tolerance, antepartum 05/23/2006 03/30/2018 Family history of diabetes mellitus 05/23/2006 03/30/2018 Overview: Mother, Father, Maternal Grandparents Calculus of ureter 05/23/2006 03/30/2018 Overview: Stable, none since 2004 Calculus of gallbladder with out mention of cholecystitis or obstruction 10/17/2005 05/23/2006 Callus of foot 03/30/2018 documented as of this encounter (statuses as of 12/01/2021) [facility] History of Past illness Narrative* Problem Noted Date Resolved Date Transition of care performed with sharing of clinical summary 11/29/2018 08/23/2021 Sprain of lumbar region 08/04/2014 03/30/20 18 Mild intermittent asthma without complication 03/30/2018 Overview: Since age 11. No medication. Last attack > 10 years Abnormal maternal glucose tolerance, antepartum 05/23/2006 03/30/2018 Family history of diabetes mellitus 05/23/2006 03/30/2018 Overview: Mother, Father, Maternal Grandparents Calculus of ureter 05/23/2006 03/30/2018 Overview: Stable, none since 2004 Calculus of gallbladder with out mention of cholecystitis or obstruction 10/17/2005 05/23/2006 Callus of foot 03/30/2018 documented as of this encounter (statuses as of 12/03/2021) [facility] History of Past illness Narrative* Problem Noted Date Resolved Date Transition of care performed with sharing of clinical summary 11/29/2018 08/23/2021 Sprain of lumbar region 08/04/2014 03/30/20 18 Mild intermittent asthma without complication 03/30/2018 Overview: Since age 11. No medication. Last attack > 10 years Abnormal maternal glucose tolerance, antepartum 05/23/2006 03/30/2018 Family history of diabetes mellitus 05/23/2006 03/30/2018 Overview: Mother, Father, Maternal Grandparents Calculus of ureter 05/23/2006 03/30/2018 Overview: Stable, none since 2004 Calculus of gallbladder with out mention of cholecystitis or obstruction 10/17/2005 05/23/2006 Callus of foot 03/30/2018 documented as of this encounter (statuses as of 12/06/2021) [facility] History of Past illness Narrative* Problem Noted Date Resolved Date Transition of care performed with sharing of clinical summary 11/29/2018 08/23/2021 Sprain of lumbar region 08/04/2014 03/30/20 18 Mild intermittent asthma without complication 03/30/2018 Overview: Since age 11. No medication. Last attack > 10 years Abnormal maternal glucose tolerance, antepartum 05/23/2006 03/30/2018 Family history of diabetes mellitus 05/23/2006 03/30/2018 Overview: Mother, Father, Maternal Grandparents Calculus of ureter 05/23/2006 03/30/2018 Overview: Stable, none since 2004 Calculus of gallbladder with out mention of cholecystitis or obstruction 10/17/2005 05/23/2006 Callus of foot 03/30/2018 documented as of this encounter (statuses as of 12/06/2021) [facility] History of Past illness Narrative* Problem Noted Date Resolved Date Transition of care performed with sharing of clinical summary 11/29/2018 08/23/2021 Sprain of lumbar region 08/04/2014 03/30/20 18 Mild intermittent asthma without complication 03/30/2018 Overview: Since age 11. No medication. Last attack > 10 years Abnormal maternal glucose tolerance, antepartum 05/23/2006 03/30/2018 Family history of diabetes mellitus 05/23/2006 03/30/2018 Overview: Mother, Father, Maternal Grandparents Calculus of ureter 05/23/2006 03/30/2018 Overview: Stable, none since 2004 Calculus of gallbladder with out mention of cholecystitis or obstruction 10/17/2005 05/23/2006 Callus of foot 03/30/2018 documented as of this encounter (statuses as of 01/25/2022) [facility] of Past illness Narrative* Problem Noted Date Resolved Date Transition of care performed with sharing of clinical summary 11/29/2018 08/23/2021 Sprain of lumbar region 08/04/2014 03/30/20 18 Mild intermittent asthma without complication 03/30/2018 Overview: Since age 11. No medication. Last attack > 10 years Abnormal maternal glucose tolerance, antepartum 05/23/2006 03/30/2018 Family history of diabetes mellitus 05/23/2006 03/30/2018 Overview: Mother, Father, Maternal Grandparents Calculus of ureter 05/23/2006 03/30/2018 Overview: Stable, none since 2004 Calculus of gallbladder with out mention of cholecystitis or obstruction 10/17/2005 05/23/2006 Callus of foot 03/30/2018 documented as of this encounter (statuses as of 01/29/2022) [facility] of Past illness Narrative* Problem Noted Date Resolved Date Transition of care performed with sharing of clinical summary 11/29/2018 08/23/2021 Sprain of lumbar region 08/04/2014 03/30/20 18 Mild intermittent asthma without complication 03/30/2018 Overview: Since age 11. No medication. Last attack > 10 years Abnormal maternal glucose tolerance, antepartum 05/23/2006 03/30/2018 Family history of diabetes mellitus 05/23/2006 03/30/2018 Overview: Mother, Father, Maternal Grandparents Calculus of ureter 05/23/2006 03/30/2018 Overview: Stable, none since 2004 Calculus of gallbladder with out mention of cholecystitis or obstruction 10/17/2005 05/23/2006 Callus of foot 03/30/2018 documented as of this encounter (statuses as of 01/31/2022) [facility] of Past illness Narrative* Problem Noted Date Resolved Date Transition of care performed with sharing of clinical summary 11/29/2018 08/23/2021 Sprain of lumbar region 08/04/2014 03/30/20 18 Mild intermittent asthma without complication 03/30/2018 Overview: Since age 11. No medication. Last attack > 10 years Abnormal maternal glucose tolerance, antepartum 05/23/2006 03/30/2018 Family history of diabetes mellitus 05/23/2006 03/30/2018 Overview: Mother, Father, Maternal Grandparents Calculus of ureter 05/23/2006 03/30/2018 Overview: Stable, none since 2004 Calculus of gallbladder with out mention of cholecystitis or obstruction 10/17/2005 05/23/2006 Callus of foot 03/30/2018 documented as of this encounter (statuses as of 02/07/2022) [facility] of Past illness Narrative* Problem Noted Date Resolved Date Transition of care performed with sharing of clinical summary 11/29/2018 08/23/2021 Sprain of lumbar region 08/04/2014 03/30/20 18 Mild intermittent asthma without complication 03/30/2018 Overview: Since age 11. No medication. Last attack > 10 years Abnormal maternal glucose tolerance, antepartum 05/23/2006 03/30/2018 Family history of diabetes mellitus 05/23/2006 03/30/2018 Overview: Mother, Father, Maternal Grandparents Calculus of ureter 05/23/2006 03/30/2018 Overview: Stable, none since 2004 Calculus of gallbladder with out mention of cholecystitis or obstruction 10/17/2005 05/23/2006 Callus of foot 03/30/2018 documented as of this encounter (statuses as of 02/21/2022) [facility] of Past illness Narrative* Problem Noted Date Resolved Date Transition of care performed with sharing of clinical summary 11/29/2018 08/23/2021 Sprain of lumbar region 08/04/2014 03/30/20 18 Mild intermittent asthma without complication 03/30/2018 Overview: Since age 11. No medication. Last attack > 10 years Abnormal maternal glucose tolerance, antepartum 05/23/2006 03/30/2018 Family history of diabetes mellitus 05/23/2006 03/30/2018 Overview: Mother, Father, Maternal Grandparents Calculus of ureter 05/23/2006 03/30/2018 Overview: Stable, none since 2004 Calculus of gallbladder with out mention of cholecystitis or obstruction 10/17/2005 05/23/2006 Callus of foot 03/30/2018 documented as of this encounter (statuses as of 02/28/2022) [facility] of Past illness Narrative* Problem Noted Date Resolved Date Transition of care performed with sharing of clinical summary 11/29/2018 08/23/2021 Sprain of lumbar region 08/04/2014 03/30/20 18 Mild intermittent asthma without complication 03/30/2018 Overview: Since age 11. No medication. Last attack > 10 years Abnormal maternal glucose tolerance, antepartum 05/23/2006 03/30/2018 Family history of diabetes mellitus 05/23/2006 03/30/2018 Overview: Mother, Father, Maternal Grandparents Calculus of ureter 05/23/2006 03/30/2018 Overview: Stable, none since 2004 Calculus of gallbladder with out mention of cholecystitis or obstruction 10/17/2005 05/23/2006 Callus of foot 03/30/2018 documented as of this encounter (statuses as of 03/09/2022) [facility] of Past illness Narrative* Problem Noted Date Resolved Date Transition of care performed with sharing of clinical summary 11/29/2018 08/23/2021 Sprain of lumbar region 08/04/2014 03/30/20 18 Mild intermittent asthma without complication 03/30/2018 Overview: Since age 11. No medication. Last attack > 10 years Abnormal maternal glucose tolerance, antepartum 05/23/2006 03/30/2018 Family history of diabetes mellitus 05/23/2006 03/30/2018 Overview: Mother, Father, Maternal Grandparents Calculus of ureter 05/23/2006 03/30/2018 Overview: Stable, none since 2004 Calculus of gallbladder with out mention of cholecystitis or obstruction 10/17/2005 05/23/2006 Callus of foot 03/30/2018 documented as of this encounter (statuses as of 03/12/2022) [facility] of Past illness Narrative* Problem Noted Date Resolved Date Transition of care performed with sharing of clinical summary 11/29/2018 08/23/2021 Sprain of lumbar region 08/04/2014 03/30/20 18 Mild intermittent asthma without complication 03/30/2018 Overview: Since age 11. No medication. Last attack > 10 years Abnormal maternal glucose tolerance, antepartum 05/23/2006 03/30/2018 Family history of diabetes mellitus 05/23/2006 03/30/2018 Overview: Mother, Father, Maternal Grandparents Calculus of ureter 05/23/2006 03/30/2018 Overview: Stable, none since 2004 Calculus of gallbladder with out mention of cholecystitis or obstruction 10/17/2005 05/23/2006 Callus of foot 03/30/2018 documented as of this encounter (statuses as of 03/12/2022) [facility] of Past illness Narrative* Problem Noted Date Resolved Date Transition of care performed with sharing of clinical summary 11/29/2018 08/23/2021 Sprain of lumbar region 08/04/2014 03/30/20 18 Mild intermittent asthma without complication 03/30/2018 Overview: Since age 11. No medication. Last attack > 10 years Abnormal maternal glucose tolerance, antepartum 05/23/2006 03/30/2018 Family history of diabetes mellitus 05/23/2006 03/30/2018 Overview: Mother, Father, Maternal Grandparents Calculus of ureter 05/23/2006 03/30/2018 Overview: Stable, none since 2004 Calculus of gallbladder with out mention of cholecystitis or obstruction 10/17/2005 05/23/2006 Callus of foot 03/30/2018 documented as of this encounter (statuses as of 03/14/2022) [facility] Past illness Narrative* Problem Noted Date Resolved Date Transition of care performed with sharing of clinical summary 11/29/2018 08/23/2021 Sprain of lumbar region 08/04/2014 03/30/20 18 Mild intermittent asthma without complication 03/30/2018 Overview: Since age 11. No medication. Last attack > 10 years Abnormal maternal glucose tolerance, antepartum 05/23/2006 03/30/2018 Family history of diabetes mellitus 05/23/2006 03/30/2018 Overview: Mother, Father, Maternal Grandparents Calculus of ureter 05/23/2006 03/30/2018 Overview: Stable, none since 2004 Calculus of gallbladder with out mention of cholecystitis or obstruction 10/17/2005 05/23/2006 Callus of foot 03/30/2018 documented as of this encounter (statuses as of 06/21/2022) [facility] Past illness Narrative* Problem Noted Date Resolved Date Transition of care performed with sharing of clinical summary 11/29/2018 08/23/2021 Sprain of lumbar region 08/04/2014 03/30/20 18 Mild intermittent asthma without complication 03/30/2018 Overview: Since age 11. No medication. Last attack > 10 years Abnormal maternal glucose tolerance, antepartum 05/23/2006 03/30/2018 Family history of diabetes mellitus 05/23/2006 03/30/2018 Overview: Mother, Father, Maternal Grandparents Calculus of ureter 05/23/2006 03/30/2018 Overview: Stable, none since 2004 Calculus of gallbladder with out mention of cholecystitis or obstruction 10/17/2005 05/23/2006 Callus of foot 03/30/2018 documented as of this encounter (statuses as of 07/24/2022) [facility] Past illness Narrative* Problem Noted Date Resolved Date Transition of care performed with sharing of clinical summary 11/29/2018 08/23/2021 Sprain of lumbar region 08/04/2014 03/30/20 18 Mild intermittent asthma without complication 03/30/2018 Overview: Since age 11. No medication. Last attack > 10 years Abnormal maternal glucose tolerance, antepartum 05/23/2006 03/30/2018 Family history of diabetes mellitus 05/23/2006 03/30/2018 Overview: Mother, Father, Maternal Grandparents Calculus of ureter 05/23/2006 03/30/2018 Overview: Stable, none since 2004 Calculus of gallbladder with out mention of cholecystitis or obstruction 10/17/2005 05/23/2006 Callus of foot 03/30/2018 documented as of this encounter (statuses as of 09/19/2022) [facility] of Past illness Narrative* Problem Noted Date Resolved Date Transition of care performed with sharing of clinical summary 11/29/2018 08/23/2021 Sprain of lumbar region 08/04/2014 03/30/20 18 Mild intermittent asthma without complication 03/30/2018 Overview: Since age 11. No medication. Last attack > 10 years Abnormal maternal glucose tolerance, antepartum 05/23/2006 03/30/2018 Family history of diabetes mellitus 05/23/2006 03/30/2018 Overview: Mother, Father, Maternal Grandparents Calculus of ureter 05/23/2006 03/30/2018 Overview: Stable, none since 2004 Calculus of gallbladder with out mention of cholecystitis or obstruction 10/17/2005 05/23/2006 Callus of foot 03/30/2018 documented as of this encounter (statuses as of 11/25/2022) [facility] of Past illness Narrative* Problem Noted Date Resolved Date Transition of care performed with sharing of clinical summary 11/29/2018 08/23/2021 Sprain of lumbar region 08/04/2014 03/30/20 18 Mild intermittent asthma without complication 03/30/2018 Overview: Since age 11. No medication. Last attack > 10 years Abnormal maternal glucose tolerance, antepartum 05/23/2006 03/30/2018 Family history of diabetes mellitus 05/23/2006 03/30/2018 Overview: Mother, Father, Maternal Grandparents Calculus of ureter 05/23/2006 03/30/2018 Overview: Stable, none since 2004 Calculus of gallbladder with out mention of cholecystitis or obstruction 10/17/2005 05/23/2006 Callus of foot 03/30/2018 documented as of this encounter (statuses as of 01/29/2023) [facility] of Past illness Narrative* Problem Noted Date Diagnosed Date Resolved Date Transition of care performed with sharing of clinical summary 11/29/2018 08/23/2021 Sprain of lumbar region 08/04/201403/03 Mild intermittent asthma without complication 05/23/20 06 03/30/2018 Overview: Since age 11. No medication. Last attack > 10 years Abnormal maternal glucose to lerance, antepartum 05/23/2006 03/30/2018 Family history of diabetes mellitus 05/23/2006 03/30/2018 Overview: Mother, Father, Maternal Grandparents Calculus of ureter 05/23/2006 8 Overview: Stable, none since 2004 Calculus of gallbladder with out mention of cholecystitis or obstruction 10/17/2005 05/23/2006 Callus of foot 03/30/2018 documented as of this encounter (statuses as of 04/02/2023) [facility] of Past illness Narrative* Problem Noted Date Diagnosed Date Resolved Date Transition of care performed with sharing of clinical summary 11/29/2018 08/23/2021 Sprain of lumbar region 08/04/201403/03 Mild intermittent asthma without complication 05/23/2003/30/2018 Overview: Since age 11. No medication. Last attack > 10 years Abnormal maternal glucose to lerance, antepartum 05/23/2006 03/30/2018 Family history of diabetes mellitus 05/23/2006 03/30/2018 Overview: Mother, Father, Maternal Grandparents Calculus of ureter 05/23/2006 8 Overview: Stable, none since 2004 Calculus of gallbladder with out mention of cholecystitis or obstruction 10/17/2005 05/23/2006 Callus of foot 03/30/2018 documented as of this encounter (statuses as of 11/16/2023) [facility] [facility] of Past illness Narrative* Problem Noted Date Diagnosed Date Resolved Date Transition of care performed with sharing of clinical summary 11/29/2018 08/23/2021 Sprain of lumbar region 08/04/201403/03 Mild intermittent asthma without complication 05/23/2003/30/2018 Overview: Since age 11. No medication. Last attack > 10 years Abnormal maternal glucose to lerance, antepartum 05/23/2006 03/30/2018 Family history of diabetes mellitus 05/23/2006 03/30/2018 Overview: Mother, Father, Maternal Grandparents Calculus of ureter 05/23/2006 8 Overview: Stable, none since 2004 Calculus of gallbladder with out mention of cholecystitis or obstruction 10/17/2005 05/23/2006 Callus of foot 03/30/2018 documented as of this encounter (statuses as of 12/08/2023) [facility]03[facility] History of Past illness Narrative* Problem Noted Date Diagnosed Date Resolved Date Transition of care performed with sharing of clinical summary 11/29/2018 08/23/2021 Sprain of lumbar region 08/04/201403/03 Mild intermittent asthma without complication 05/23/2003/30/2018 Overview: Since age 11. No medication. Last attack > 10 years Abnormal maternal glucose to lerance, antepartum 05/23/2006 03/30/2018 Family history of diabetes mellitus 05/23/2006 03/30/2018 Overview: Mother, Father, Maternal Grandparents Calculus of ureter 05/23/2006 8 Overview: Stable, none since 2004 Calculus of gallbladder with out mention of cholecystitis or obstruction 10/17/2005 05/23/2006 Callus of foot 03/30/2018 documented as of this encounter (statuses as of 12/16/2023) [facility]03[facility] History of Past illness Narrative* Problem Noted Date Diagnosed Date Resolved Date Transition of care performed with sharing of clinical summary 11/29/2018 08/23/2021 Sprain of lumbar region 08/04/201403/03 Mild intermittent asthma without complication 05/23/2003/30/2018 Overview: Since age 11. No medication. Last attack > 10 years Abnormal maternal glucose to lerance, antepartum 05/23/2006 03/30/2018 Family history of diabetes mellitus 05/23/2006 03/30/2018 Overview: Mother, Father, Maternal Grandparents Calculus of ureter 05/23/2006 8 Overview: Stable, none since 2004 Calculus of gallbladder with out mention of cholecystitis or obstruction 10/17/2005 05/23/2006 Callus of foot 03/30/2018 documented as of this encounter (statuses as of 11/01/2023) [facility] Diagnosis Foot pain, left- Primary Pain in limb [facility] Diagnosis Foot pain, left- Primary [facility] in [facility] Diagnosis Abnormal mammogram Abnormal mammogram, unspecified [facility] Diagnosis Abnormal mammogram Abnormal mammogram, unspecified [facility] Diagnosis Onychodystrophy- Primary Other specified disease of nail Diminished pulse Other symptoms involving cardiovascular system Controlled type 2 diabetes mellitus without complication, without long-term current use of insulin (HCC) [facility]* Diagnosis Migraine without aura and without status migrainosus, not intractable Migraine without aura, without mention of intractable migraine without mention of status migrainosus [facility]* Diagnosis Viral illness- Primary Unspecified viral infection, in conditions classified elsewhere and of unspecified site [facility]* Diagnosis Controlled type 2 diabetes mellitus without complication, without long-term current use of insulin (HCC)- Primary Depressive disorder Depressive disorder, not elsewhere classified Migraine without aura and without status migrainosus, not intractable Migraine without aura, without mention of intractable migraine without mention of status migrainosus Tobacco use disorder Mixed hyperlipidemia Viral URI with cough Acute upper respiratory infections of unspecified site [facility] Diagnosis Onychodystrophy- Primary Other specified disease of nail [facility]* Diagnosis Controlled type 2 diabetes mellitus without complication, without long-term current use of insulin (HCC)- Primary Elevated liver enzymes Other nonspecific abnormal serum enzyme levels [facility]* Diagnosis Depressive disorder Depressive disorder, not elsewhere classified Controlled type 2 diabetes mellitus without complication, without long-term current use of insulin (HCC) [facility]* Diagnosis Fatty liver Other chronic nonalcoholic liver disease [facility] Diagnosis Open wound of toe, initial encounter- Primary [facility]* Diagnosis Migraine without aura and without status migrainosus, not intractable Migraine without aura, without mention of intractable migraine without mention of status migrainosus [facility] Diagnosis Controlled type 2 diabetes mellitus without complication, without long-term current use of insulin (HCC) Fatty liver Other chronic nonalcoholic liver disease [facility]* Diagnosis Depressive disorder Depressive disorder, not elsewhere classified [facility]* Diagnosis Migraine without aura and without status migrainosus, not intractable Migraine without aura, without mention of intractable migraine without mention of status migrainosus Depressive disorder Depressive disorder, not elsewhere classified [facility]* Diagnosis Viral illness- Primary Unspecified viral infection, in conditions classified elsewhere and of unspecified site [facility]* Diagnosis Controlled type 2 diabetes mellitus without complication, without long-term current use of insulin (HCC) Migraine without aura and without status migrainosus, not intractable Migraine without aura, without mention of intractable migraine without mention of status migrainosus Depressive disorder Depressive disorder, not elsewhere classified [facility]* Diagnosis Menorrhagia with irregular cycle- Primary Excessive or frequent menstruation Dysmenorrhea [facility] Diagnosis Menorrhagia with irregular cycle Excessive or frequent menstruation [facility] Diagnosis Menorrhagia with irregular cycle- Primary Excessive or frequent menstruation [facility] Diagnosis Menorrhagia with irregular cycle- Primary Excessive or frequent menstruation [facility] Diagnosis Irregular bleeding- Primary Irregular menstrual cycle [facility]* Diagnosis Menorrhagia with irregular cycle- Primary Excessive or frequent menstruation Endometrial polyp Polyp of corpus uteri Visit for pre-operative examination Preoperative examination, unspecified [facility]* Diagnosis Post-operative state- Primary Other postprocedural status [facility]* Diagnosis Anxiety with depression- Primary Controlled type 2 diabetes mellitus without complication, without long-term current use of insulin (HCC) Dysmenorrhea [facility] Diagnosis Hypomagnesemia- Primary Disorders of magnesium metabolism [facility] Diagnosis Controlled type 2 diabetes mellitus without complication, without long-term current use of insulin (HCC) [facility] Diagnosis Hypomagnesemia- Primary Disorders of magnesium metabolism Abnormal LFTs Other abnormal blood chemistry Preop examination Preoperative examination, unspecified [facility] Diagnosis Leukocytosis, unspecified type- Primary Hypomagnesemia Disorders of magnesium metabolism [facility] Diagnosis DUB (dysfunctional uterine bleeding)- Primary Other disorder of menstruation and other abnormal bleeding from female genital tract Excessive bleeding in premenopausal period Premenopausal menorrhagia Class 2 obesity with body mass index (BMI) of 36.0 to 36.9 in adult, unspecified obesity type, unspecified whether serious comorbidity present documented in this encounter [facility] note* Diagnosis Leukocytosis, unspecified type- Primary LFT elevation Other abnormal blood chemistry Lymphocytosis Lymphocytosis (symptomatic) [facility]* Diagnosis Post-operative state- Primary Other postprocedural status Vaginal discharge Leukorrhea, not specified as infective Constipation, unspecified constipation type Chronic pelvic pain in female Unspecified symptom associated with female genital organs DUB (dysfunctional uterine bleeding) Other disorder of menstruation and other abnormal bleeding from female genital tract [facility]* Diagnosis BV (bacterial vaginosis)- Primary Vaginitis and vulvovaginitis, unspecified documented in this encounter [facility] note* Diagnosis Elevated ferritin- Primary Other abnormal blood chemistry [facility]* Diagnosis Foot pain, left Pain in limb [facility] Diagnosis Pain of right thumb Pain in limb [facility]* Diagnosis Migraine without aura and without status migrainosus, not intractable Migraine without aura, without mention of intractable migraine without mention of status migrainosus [facility]* Diagnosis Controlled type 2 diabetes mellitus without complication, without long-term current use of insulin (HCC) Migraine without aura and without status migrainosus, not intractable Migraine without aura, without mention of intractable migraine without mention of status migrainosus Depressive disorder Depressive disorder, not elsewhere classified [facility]* Diagnosis Palpitations- Primary Migraine without aura and without status migrainosus, not intractable Migraine without aura, without mention of intractable migraine without mention of status migrainosus Fatty liver Other chronic nonalcoholic liver disease Depressive disorder Depressive disorder, not elsewhere classified Panic disorder Panic disorder without agoraphobia Anxiety with depression Pure hypercholesterolemia Goiter, euthyroid Goiter, unspecified Controlled type 2 diabetes mellitus without complication, without long-term current use of insulin (HCC) Abrasion Abrasion or friction burn of other, multiple, and unspecified sites, without mention of infection Encounter for screening examination for other mental health and behavioral disorders documented in this encounter [facility] note* Diagnosis Controlled type 2 diabetes mellitus without complication, without long-term current use of insulin (HCC)- Primary Hypomagnesemia Disorders of magnesium metabolism documented in this encounter [facility] note* Diagnosis JESSE (generalized anxiety disorder)- Primary Generalized anxiety disorder Anxiety with depression Controlled type 2 diabetes mellitus without complication, without long-term current use of insulin (HCC) Fatty liver Other chronic nonalcoholic liver disease Panic disorder Panic disorder without agoraphobia Hypomagnesemia Disorders of magnesium metabolism documented in this encounter [facility] noteNo assessment information availableWFirelands Regional [facility] Work Phone: Evaluation note* Diagnosis Acute right-sided low back pain without sciatica- Primary Abdominal pain, unspecified abdominal location documented in this encounter [facility] note* Diagnosis Ovarian mass, right- Primary Intra-abdominal and pelvic swelling, mass and lump, unspecified site- Primary documented in this encounter [facility] note* Diagnosis Ovarian mass, right- Primary Ovarian mass- Primary Unspecified noninflammatory disorder of ovary, fallopian tube, and broad ligament documented in this encounter [facility] note* Diagnosis Ovarian mass, right- Primary Intra-abdominal and pelvic swelling, mass and lump, unspecified site Preop examination- Primary Preoperative examination, unspecified Ovarian mass, right Mixed hyperlipidemia Tobacco use disorder Controlled type 2 diabetes mellitus without complication, without long-term current use of insulin (HCC) Ovarian mass Unspecified noninflammatory disorder of ovary, fallopian tube, and broad ligament documented in this encounter [facility] note* Diagnosis Ovarian mass, right- Primary Preop examination- Primary Preoperative examination, unspecified Ovarian mass, right Mixed hyperlipidemia Tobacco use disorder Controlled type 2 diabetes mellitus without complication, without long-term current use of insulin (HCC) Migraine without status migrainosus, not intractable, unspecified migraine type Ovarian mass Unspecified noninflammatory disorder of ovary, fallopian tube, and broad ligament * Assessment & Plan Note - Janel Garcia, KENDALL.BIOINFORMATICS COMPUTER SCIENTIST - 02/17/2025 11:52 AM EDT Associated Problem(s): Migraines Propranolol take morning of surgery * Assessment & Plan Note - Janel Garcia APRN.CNP - 02/11/2025 4:38 PM EDT Associated Problem(s): Diabetes mellitus type 2, controlled, without complications (HCC) A1c 8.October Jardiance stopped 3 days prior Metformin hold morning of surgery * Assessment & Plan Note - Janel Garcia APRN.CNP - 02/11/2025 4:36 PM EDT Associated Problem(s): Tobacco use disorder 11.4-pack-year history Currently vaping Encouraged to cut back prior to surgery and avoid morning of surgery * Assessment & Plan Note - Janel Garcia APRN.CNP - 02/11/2025 4:35 PM EDT Associated Problem(s): Hyperlipidemia Controlled with statin continue preoperatively * Assessment & Plan Note - Janel Garcia APRN.CNP - 02/11/2025 4:34 PM EDT Associated Problem(s): Ovarian mass, right Surgery scheduled for 02/25/2025 * Assessment & Plan Note - Janel Garcia APRN.CNP - 02/11/2025 4:34 PM EDT Associated Problem(s): Preop examination Patient has the following medical conditions which may affect lupis-operative course addressed in assessment and plan today. documented in this encounter [facility] course Narrative No data available for this section [facility] Discharge instructions Additional Instructions The ultrasound again showed a right ovarian mass. There is blood flow to it so there is no ovarian torsion. This needs evaluated by oncology to rule out cancer. Since you are in pain management I cannot prescribe narcotics. You should call your pain management physician tomorrow to tell them about this new medical issue.[facility] Work Phone: Reason for referral (narrative)* Diagnostic Procedure Only (Routine) - Closed Specialty Diagnoses / Procedures Referred By Contac t Referred To Contact XR IMAGING Diagnoses Foot pain, left Procedures XR FOOT GENERAL 3V AP/LAT/OBL LEFT RADEX FOOT COMPLETE MINIMUM 3 VIEWS Felix Traore MD [address] [place] [address] Xr Imaging Referral ID Status Reason Start Date Expiration Date V isits Requested Visits Authorized [id number] Closed Auto-Generate d Referral 12/01/2021 12/31/2022 1 1 [facility] for referral (narrative)* Outpatient Procedure (Routine) - Authorized Specialty Diagnoses / Procedures Referred By Contac t Referred To Contact [facility] Diagnoses Onychodystrophy Diminished pulse Controlled type 2 diabetes mellitus without complication, without long-term current use of insulin (HCC) Procedures PVR ANK PRESS RAMU VAS LAB NON-INVAS PHYSIOLOGIC STD EXTREMITY ART 2 LEVEL Mirza Daniel [address] [place] [address] [facility] [place] [address] [place] [address] Referral ID Status Reason Start Date Expiration Date Visits Requested Visits Authorized [id number] Authorized Auto-Generat ed Referral 01/25/2022 01/25/2023 1 1 T [facility] for referral (narrative)* Diagnostic Procedure Only (Routine) - Authorized Specialty Diagnoses / Procedures Referred By Contac t Referred To Contact US IMAGING Diagnoses Menorrhagia with irregular cycle Procedures US FEMALE PELVIS TRANSVAG US TRANSVAGINAL Samanta Dobson APRN.CNP [address] [place] [address] [place] [id number] Referral ID Status Reason Start Date Expiration Date Visits Requested Visits Authorized [id number] Authorized Auto-Generat ed Referral 12/16/2023 01/14/2025 1 1 [facility] for referral (narrative)* Diagnostic Procedure Only (Routine) - Pending Review Specialty Diagnoses / Procedures Referred By Contac t Referred To Contact BR IMAGING Procedures KEVAN SCREENING W ALVARO SCREENING DIGITAL BREAST TOMOSYNTHESIS BI SCREENING MAMMOGRAPHY BI 2-VIEW BREAST INC CAD Albert Ferrer PA-C [address] [place] [address] [facility] [address] [place] [address] Referral ID Status Reason Start Date Expiration Date Visits Requested Visits Authorized [id number] Pending Review Auto-Generat ed Referral 12/31/2023 01/29/2025 1 1 [facility] for referral (narrative)* Outpatient Procedure (Routine) - Pending Review Specialty Diagnoses / Procedures Referred By Contac t Referred To Contact [facility] Diagnoses Menorrhagia with irregular cycle Procedures ENDOMETRIAL BIOPSY ENDOMETRIAL BX W/WO ENDOCERVIX BX W/O DILAT SPX Zheng Luna MD [address] [place] [address] [address] Referral ID Status Reason Start Date Expiration Date Visits Requested Visits Authorized [id number] Pending Review Auto-Generat ed Referral 01/12/2024 01/11/2025 1 1 [facility] for referral (narrative)* Outpatient Procedure (Routine) - Closed Specialty Diagnoses / Procedures Referred By Contac t Referred To Contact [facility] Diagnoses Menorrhagia with irregular cycle Procedures ENDOMETRIAL BIOPSY ENDOMETRIAL BX W/WO ENDOCERVIX BX W/O DILAT SPX Samanta Dobson APRN.BIOINFORMATICS COMPUTER SCIENTIST [address] [facility] [place] [address] [address] Referral ID Status Reason Start Date Expiration Date V isits Requested Visits Authorized [id number] Closed Auto-Generate d Referral 01/08/2024 01/07/2025 1 1 [facility] for referral (narrative)* Diagnostic Procedure Only (Routine) - Closed Specialty Diagnoses / Procedures Referred By Contac t Referred To Contact XR IMAGING Diagnoses Foot pain, left Procedures XR FOOT GENERAL 3V AP/LAT/OBL LEFT RADEX FOOT COMPLETE MINIMUM 3 VIEWS Felix Traore MD [address] [place] [address] [place] [id number] Referral ID Status Reason Start Date Expiration Date V isits Requested Visits Authorized [id number] Closed Auto-Generate d Referral 12/01/2021 12/31/2022 1 1 T [facility] for referral (narrative)* Diagnostic Procedure Only (Urgent) - Closed Specialty Diagnoses / Procedures Referred By Contac t Referred To Contact XR IMAGING Diagnoses Pain of right thumb Procedures XR DIGIT GENERAL 3V FRONTAL/LAT/OBL RIGHT X-RAY EXAM OF FINGER(S) Mel Callahan APRN.CNP [address] [place] [address] [place] [id number] Referral ID Status Reason Start Date Expiration Date V isits Requested Visits Authorized [id number] Closed Auto-Generate d Referral 08/02/2021 09/01/2022 1 1 [facility] for referral (narrative)No reason for referral information availableWFirelands Regional Medical Center Work Phone: Reason for visit Narrative* Diagnostic Procedure Only (Routine) - Closed Specialty Diagnoses / Procedures Referred By Contac t Referred To Contact BR IMAGING Diagnoses Abnormal mammogram Procedures KEVAN DIAGNOSTIC BILAT DIAGNOSTIC MAMMOGRAPHY COMPUTER-AIDED DETCJ BI Ronen Champagne MD [address] [place] [address] [facility] [address] [place] [address] Referral ID Status Reason Start Date Expiration Date V isits Requested Visits Authorized [id number] Closed Auto-Generate d Referral 11/05/2021 06/07/2022 1 1 [facility] for visit Narrative* Diagnostic Procedure Only (Routine) - Closed Specialty Diagnoses / Procedures Referred By Contac t Referred To Contact BR IMAGING Procedures KEVAN SCREENING W ALVARO SCREENING DIGITAL BREAST TOMOSYNTHESIS BI SCREENING MAMMOGRAPHY BI 2-VIEW BREAST INC CAD Albert Ferrer PA-C [address] [place] [address] [facility] [address] [place] [address] Referral ID Status Reason Start Date Expiration Date V isits Requested Visits Authorized [id number] Closed Auto-Generate d Referral 12/31/2023 01/29/2025 1 1 [facility] for visit Narrative* Diagnostic Procedure Only (Routine) - Closed Specialty Diagnoses / Procedures Referred By Contac t Referred To Contact XR IMAGING Diagnoses Foot pain, left Procedures XR FOOT GENERAL 3V AP/LAT/OBL LEFT RADEX FOOT COMPLETE MINIMUM 3 VIEWS Felix Traore MD [address] [place] [address] [place] [address] Referral ID Status Reason Start Date Expiration Date V isits Requested Visits Authorized [id number] Closed Auto-Generate d Referral 12/01/2021 12/31/2022 1 1 [facility]* Diagnostic Procedure Only (Urgent) - Closed Specialty Diagnoses / Procedures Referred By Contac t Referred To Contact XR IMAGING Diagnoses Pain of right thumb Procedures XR DIGIT GENERAL 3V FRONTAL/LAT/OBL RIGHT X-RAY EXAM OF FINGER(S) Mel Callahan, CONCRETE STONE FINISHER.BIOINFORMATICS COMPUTER SCIENTIST [address] [place] [address] [place] [address] Referral ID Status Reason Start Date Expiration Date V isits Requested Visits Authorized [id number] Closed Auto-Generate d Referral 08/02/2021 09/01/2022 1 1 [facility] Summary Purpose Family History No Family History Records Found Relationship Condition Age at Onset Recorded Date/T jorden Unknown Family History?Diabetes Unknown Chucky johnson 2018 2:13pm Family History?Diabetes Unknown [facility] 2018 2:13pm Family History?Diabetes Unknown Sept 2020 10:31am Advance Directives No Advanced Directives Records FoundDocuments on File Type Date Recorded Patient Hospital Cook Expl anation Advance Directive(s) 08/28/2018 11:09 AM Documents on File Type Date Recorded Patient Hospital Cook Expl anation Advance Directive(s) 08/28/2018 11:09 AM Advance Directive Response Recorded Date/ Time Do you have a Healthcare Power of Fabricator [employer]? No January 17, 2025 7:00pm Advance Directive Response Recorded Date/ Time Do you have a Healthcare Power of [employer]? No January 30, 2025 2:19pm Do you have a Healthcare Power of [employer]? No January 17, 2025 7:00pm Reason for Referral Specialty Diagnoses / Procedures Referred By Contac t Referred To Contact Podiatry Diagnoses Foot pain, left Procedures CONSULT TO PODIATRY OFFICE/OUTPATIENT [facility] MDM 60-74 MINUTES Lillie Josue, CONCRETE STONE FINISHER.BIOINFORMATICS COMPUTER SCIENTIST [address] [place] [address] Referral ID Status Reason Start Date Expiration Date Visits Requested Visits Authorized [id number] Authorized PCP Requested Referral 12/03/2021 12/03/2022 1 1 Specialty Diagnoses / Procedures Referred By Contac t Referred To Contact Hematology Diagnoses Leukocytosis, unspecified type Procedures CONSULT TO HEMATOLOGY OFFICE/OUTPATIENT NEW HIGH MDM 60 MINUTES Myranda Dallas APRN.BIOINFORMATICS COMPUTER SCIENTIST [address] [place] [address] Referral ID Status Reason Start Date Expiration Date Visits Requested Visits Authorized [id number] Authorized PCP Requested Referral 03/16/2024 03/16/2025 1 1 Specialty Diagnoses / Procedures Referred By Contac t Referred To Contact Diagnoses Chronic pelvic pain in female DUB (dysfunctional uterine bleeding) Procedures CONSULT TO MINIMALLY INVASIVE GYNECOLOGIC SURGERY OFFICE/OUTPATIENT NEW HIGH MDM 60 MINUTES Zheng Luna MD [address] [place] [address] Referral ID Status Reason Start Date Expiration Date Visits Requested Visits Authorized [id number] Authorized PCP Requested Referral Auto-Generate d Referral 04/22/2024 04/22/2025 1 1 Health Concerns Infection Onset Date Last Indicated Resolved Time COVID-19 Rule-Out 11/16/2023 11/16/2023 Chief Complaint and Reason for Visit Chief Complaint Admit Date BACK PAIN January 17, 2025 6:26p m Chief Complaint Admit Date BACK PAIN January 17, 2025 6:26p m RLQ ABD. PAIN January 30, 2025 1:51p m Additional Source Comments INFORMATION SOURCE (unrecogn ized section and content) DATE CREATED AUTHOR 03/21/2020 [facility] DATE CREATED AUTHOR AUTHOR'S ORGANIZ ATION 02/10/2023 [facility] ([place]) DATE CREATED AUTHOR AUTHOR'S ORGANIZ ATION 06/26/2024 [facility] DATE CREATED AUTHOR AUTHOR'S ORGANIZ ATION 02/02/2025 [facility] DATE CREATED AUTHOR AUTHOR'S ORGANIZ ATION 02/17/2025 [facility] DATE CREATED AUTHOR AUTHOR'S ORGANIZ ATION 02/18/2025 [facility] DATE CREATED AUTHOR AUTHOR'S ORGANIZ ATION 02/19/2025 [facility] Source Comments (unrecognize d section and content) In the event this informatio n is protected by the Federal Confidentiality of Alcohol and Drug Abuse Patient Records regulations: The Federal rules restrict any use of the information to criminally investigate or prosecute any alcohol or drug abuse patient.[facility] CenterIn the event this information is protected by the Federal Confidentiality of Alcohol and Drug Abuse Patient Records regulations: The Federal rules restrict any use of the information to criminally investigate or prosecute any alcohol or drug abuse patient.[facility] CenterIn the event this information is protected by the Federal Confidentiality of Alcohol and Drug Abuse Patient Records regulations: The Federal rules restrict any use of the information to criminally investigate or prosecute any alcohol or drug abuse patient.[facility] CenterIn the event this information is protected by the Federal Confidentiality of Alcohol and Drug Abuse Patient Records regulations: The Federal rules restrict any use of the information to criminally investigate or prosecute any alcohol or drug abuse patient.[facility] CenterIn the event this information is protected by the Federal Confidentiality of Alcohol and Drug Abuse Patient Records regulations: The Federal rules restrict any use of the information to criminally investigate or prosecute any alcohol or drug abuse patient.[facility] CenterIn the event this information is protected by the Federal Confidentiality of Alcohol and Drug Abuse Patient Records regulations: The Federal rules restrict any use of the information to criminally investigate or prosecute any alcohol or drug abuse patient.[facility] CenterIn the event this information is protected by the Federal Confidentiality of Alcohol and Drug Abuse Patient Records regulations: The Federal rules restrict any use of the information to criminally investigate or prosecute any alcohol or drug abuse patient.[facility] CenterIn the event this information is protected by the Federal Confidentiality of Alcohol and Drug Abuse Patient Records regulations: The Federal rules restrict any use of the information to criminally investigate or prosecute any alcohol or drug abuse patient.[facility] CenterIn the event this information is protected by the Federal Confidentiality of Alcohol and Drug Abuse Patient Records regulations: The Federal rules restrict any use of the information to criminally investigate or prosecute any alcohol or drug abuse patient.[facility] CenterIn the event this information is protected by the Federal Confidentiality of Alcohol and Drug Abuse Patient Records regulations: The Federal rules restrict any use of the information to criminally investigate or prosecute any alcohol or drug abuse patient.[facility] CenterIn the event this information is protected by the Federal Confidentiality of Alcohol and Drug Abuse Patient Records regulations: The Federal rules restrict any use of the information to criminally investigate or prosecute any alcohol or drug abuse patient.[facility] CenterIn the event this information is protected by the Federal Confidentiality of Alcohol and Drug Abuse Patient Records regulations: The Federal rules restrict any use of the information to criminally investigate or prosecute any alcohol or drug abuse patient.[facility] CenterIn the event this information is protected by the Federal Confidentiality of Alcohol and Drug Abuse Patient Records regulations: The Federal rules restrict any use of the information to criminally investigate or prosecute any alcohol or drug abuse patient.[facility] CenterIn the event this information is protected by the Federal Confidentiality of Alcohol and Drug Abuse Patient Records regulations: The Federal rules restrict any use of the information to criminally investigate or prosecute any alcohol or drug abuse patient.[facility] CenterIn the event this information is protected by the Federal Confidentiality of Alcohol and Drug Abuse Patient Records regulations: The Federal rules restrict any use of the information to criminally investigate or prosecute any alcohol or drug abuse patient.[facility] CenterIn the event this information is protected by the Federal Confidentiality of Alcohol and Drug Abuse Patient Records regulations: The Federal rules restrict any use of the information to criminally investigate or prosecute any alcohol or drug abuse patient.[facility] CenterIn the event this information is protected by the Federal Confidentiality of Alcohol and Drug Abuse Patient Records regulations: The Federal rules restrict any use of the information to criminally investigate or prosecute any alcohol or drug abuse patient.[facility] CenterIn the event this information is protected by the Federal Confidentiality of Alcohol and Drug Abuse Patient Records regulations: The Federal rules restrict any use of the information to criminally investigate or prosecute any alcohol or drug abuse patient.[facility] CenterIn the event this information is protected by the Federal Confidentiality of Alcohol and Drug Abuse Patient Records regulations: The Federal rules restrict any use of the information to criminally investigate or prosecute any alcohol or drug abuse patient.[facility] CenterIn the event this information is protected by the Federal Confidentiality of Alcohol and Drug Abuse Patient Records regulations: The Federal rules restrict any use of the information to criminally investigate or prosecute any alcohol or drug abuse patient.[facility] CenterIn the event this information is protected by the Federal Confidentiality of Alcohol and Drug Abuse Patient Records regulations: The Federal rules restrict any use of the information to criminally investigate or prosecute any alcohol or drug abuse patient.[facility] CenterIn the event this information is protected by the Federal Confidentiality of Alcohol and Drug Abuse Patient Records regulations: The Federal rules restrict any use of the information to criminally investigate or prosecute any alcohol or drug abuse patient.[facility] CenterIn the event this information is protected by the Federal Confidentiality of Alcohol and Drug Abuse Patient Records regulations: The Federal rules restrict any use of the information to criminally investigate or prosecute any alcohol or drug abuse patient.[facility] CenterIn the event this information is protected by the Federal Confidentiality of Alcohol and Drug Abuse Patient Records regulations: The Federal rules restrict any use of the information to criminally investigate or prosecute any alcohol or drug abuse patient.[facility] CenterIn the event this information is protected by the Federal Confidentiality of Alcohol and Drug Abuse Patient Records regulations: The Federal rules restrict any use of the information to criminally investigate or prosecute any alcohol or drug abuse patient.[facility] CenterIn the event this information is protected by the Federal Confidentiality of Alcohol and Drug Abuse Patient Records regulations: The Federal rules restrict any use of the information to criminally investigate or prosecute any alcohol or drug abuse patient.[facility] CenterIn the event this information is protected by the Federal Confidentiality of Alcohol and Drug Abuse Patient Records regulations: The Federal rules restrict any use of the information to criminally investigate or prosecute any alcohol or drug abuse patient.[facility] CenterIn the event this information is protected by the Federal Confidentiality of Alcohol and Drug Abuse Patient Records regulations: The Federal rules restrict any use of the information to criminally investigate or prosecute any alcohol or drug abuse patient.[facility] CenterIn the event this information is protected by the Federal Confidentiality of Alcohol and Drug Abuse Patient Records regulations: The Federal rules restrict any use of the information to criminally investigate or prosecute any alcohol or drug abuse patient.[facility] CenterIn the event this information is protected by the Federal Confidentiality of Alcohol and Drug Abuse Patient Records regulations: The Federal rules restrict any use of the information to criminally investigate or prosecute any alcohol or drug abuse patient.[facility] CenterIn the event this information is protected by the Federal Confidentiality of Alcohol and Drug Abuse Patient Records regulations: The Federal rules restrict any use of the information to criminally investigate or prosecute any alcohol or drug abuse patient.[facility] CenterIn the event this information is protected by the Federal Confidentiality of Alcohol and Drug Abuse Patient Records regulations: The Federal rules restrict any use of the information to criminally investigate or prosecute any alcohol or drug abuse patient.[facility] CenterIn the event this information is protected by the Federal Confidentiality of Alcohol and Drug Abuse Patient Records regulations: The Federal rules restrict any use of the information to criminally investigate or prosecute any alcohol or drug abuse patient.[facility] CenterIn the event this information is protected by the Federal Confidentiality of Alcohol and Drug Abuse Patient Records regulations: The Federal rules restrict any use of the information to criminally investigate or prosecute any alcohol or drug abuse patient.[facility] CenterIn the event this information is protected by the Federal Confidentiality of Alcohol and Drug Abuse Patient Records regulations: The Federal rules restrict any use of the information to criminally investigate or prosecute any alcohol or drug abuse patient.[facility] CenterIn the event this information is protected by the Federal Confidentiality of Alcohol and Drug Abuse Patient Records regulations: The Federal rules restrict any use of the information to criminally investigate or prosecute any alcohol or drug abuse patient.[facility] CenterIn the event this information is protected by the Federal Confidentiality of Alcohol and Drug Abuse Patient Records regulations: The Federal rules restrict any use of the information to criminally investigate or prosecute any alcohol or drug abuse patient.[facility] CenterIn the event this information is protected by the Federal Confidentiality of Alcohol and Drug Abuse Patient Records regulations: The Federal rules restrict any use of the information to criminally investigate or prosecute any alcohol or drug abuse patient.[facility] CenterIn the event this information is protected by the Federal Confidentiality of Alcohol and Drug Abuse Patient Records regulations: The Federal rules restrict any use of the information to criminally investigate or prosecute any alcohol or drug abuse patient.[facility] CenterIn the event this information is protected by the Federal Confidentiality of Alcohol and Drug Abuse Patient Records regulations: The Federal rules restrict any use of the information to criminally investigate or prosecute any alcohol or drug abuse patient.[facility] CenterIn the event this information is protected by the Federal Confidentiality of Alcohol and Drug Abuse Patient Records regulations: The Federal rules restrict any use of the information to criminally investigate or prosecute any alcohol or drug abuse patient.[facility] CenterIn the event this information is protected by the Federal Confidentiality of Alcohol and Drug Abuse Patient Records regulations: The Federal rules restrict any use of the information to criminally investigate or prosecute any alcohol or drug abuse patient.[facility] CenterIn the event this information is protected by the Federal Confidentiality of Alcohol and Drug Abuse Patient Records regulations: The Federal rules restrict any use of the information to criminally investigate or prosecute any alcohol or drug abuse patient.[facility] CenterIn the event this information is protected by the Federal Confidentiality of Alcohol and Drug Abuse Patient Records regulations: The Federal rules restrict any use of the information to criminally investigate or prosecute any alcohol or drug abuse patient.[facility] CenterIn the event this information is protected by the Federal Confidentiality of Alcohol and Drug Abuse Patient Records regulations: The Federal rules restrict any use of the information to criminally investigate or prosecute any alcohol or drug abuse patient.[facility] CenterIn the event this information is protected by the Federal Confidentiality of Alcohol and Drug Abuse Patient Records regulations: The Federal rules restrict any use of the information to criminally investigate or prosecute any alcohol or drug abuse patient.[facility] CenterIn the event this information is protected by the Federal Confidentiality of Alcohol and Drug Abuse Patient Records regulations: The Federal rules restrict any use of the information to criminally investigate or prosecute any alcohol or drug abuse patient.[facility] CenterIn the event this information is protected by the Federal Confidentiality of Alcohol and Drug Abuse Patient Records regulations: The Federal rules restrict any use of the information to criminally investigate or prosecute any alcohol or drug abuse patient.[facility] CenterIn the event this information is protected by the Federal Confidentiality of Alcohol and Drug Abuse Patient Records regulations: The Federal rules restrict any use of the information to criminally investigate or prosecute any alcohol or drug abuse patient.[facility] CenterIn the event this information is protected by the Federal Confidentiality of Alcohol and Drug Abuse Patient Records regulations: The Federal rules restrict any use of the information to criminally investigate or prosecute any alcohol or drug abuse patient.[facility] CenterIn the event this information is protected by the Federal Confidentiality of Alcohol and Drug Abuse Patient Records regulations: The Federal rules restrict any use of the information to criminally investigate or prosecute any alcohol or drug abuse patient.[facility] CenterIn the event this information is protected by the Federal Confidentiality of Alcohol and Drug Abuse Patient Records regulations: The Federal rules restrict any use of the information to criminally investigate or prosecute any alcohol or drug abuse patient.[facility] CenterIn the event this information is protected by the Federal Confidentiality of Alcohol and Drug Abuse Patient Records regulations: The Federal rules restrict any use of the information to criminally investigate or prosecute any alcohol or drug abuse patient.[facility] CenterIn the event this information is protected by the Federal Confidentiality of Alcohol and Drug Abuse Patient Records regulations: The Federal rules restrict any use of the information to criminally investigate or prosecute any alcohol or drug abuse patient.[facility] CenterIn the event this information is protected by the Federal Confidentiality of Alcohol and Drug Abuse Patient Records regulations: The Federal rules restrict any use of the information to criminally investigate or prosecute any alcohol or drug abuse patient.[facility] CenterIn the event this information is protected by the Federal Confidentiality of Alcohol and Drug Abuse Patient Records regulations: The Federal rules restrict any use of the information to criminally investigate or prosecute any alcohol or drug abuse patient.[facility] CenterIn the event this information is protected by the Federal Confidentiality of Alcohol and Drug Abuse Patient Records regulations: The Federal rules restrict any use of the information to criminally investigate or prosecute any alcohol or drug abuse patient.[facility] CenterIn the event this information is protected by the Federal Confidentiality of Alcohol and Drug Abuse Patient Records regulations: The Federal rules restrict any use of the information to criminally investigate or prosecute any alcohol or drug abuse patient.[facility] CenterIn the event this information is protected by the Federal Confidentiality of Alcohol and Drug Abuse Patient Records regulations: The Federal rules restrict any use of the information to criminally investigate or prosecute any alcohol or drug abuse patient.[facility] CenterIn the event this information is protected by the Federal Confidentiality of Alcohol and Drug Abuse Patient Records regulations: The Federal rules restrict any use of the information to criminally investigate or prosecute any alcohol or drug abuse patient.[facility] CenterIn the event this information is protected by the Federal Confidentiality of Alcohol and Drug Abuse Patient Records regulations: The Federal rules restrict any use of the information to criminally investigate or prosecute any alcohol or drug abuse patient.[facility] CenterIn the event this information is protected by the Federal Confidentiality of Alcohol and Drug Abuse Patient Records regulations: The Federal rules restrict any use of the information to criminally investigate or prosecute any alcohol or drug abuse patient.[facility] CenterIn the event this information is protected by the Federal Confidentiality of Alcohol and Drug Abuse Patient Records regulations: The Federal rules restrict any use of the information to criminally investigate or prosecute any alcohol or drug abuse patient.[facility] CenterIn the event this information is protected by the Federal Confidentiality of Alcohol and Drug Abuse Patient Records regulations: The Federal rules restrict any use of the information to criminally investigate or prosecute any alcohol or drug abuse patient.[facility] CenterIn the event this information is protected by the Federal Confidentiality of Alcohol and Drug Abuse Patient Records regulations: The Federal rules restrict any use of the information to criminally investigate or prosecute any alcohol or drug abuse patient.[facility] Reason for Visit (unrecogniz ed section and content) Reason Comments left foot pain x 3 days Reason Comments Results Orders Reason Comments Diabetic Foot Check New Pain Ingrown Toenail Ingrown Nail Specialty Diagnoses / Procedures Referred By Contac t Referred To Contact Podiatry Diagnoses Foot pain, left Procedures CONSULT TO PODIATRY OFFICE/OUTPATIENT NEW HIGH MDM 60-74 MINUTES Lillie Josue APRN.[employer] [address] [place] [address] Referral ID Status Reason Start Date Expiration Date V isits Requested Visits Authorized [id number] Closed PCP Requested Referral 12/03/2021 12/03/2022 1 1 Reason Onset Date Comments Refill Request 01/29/2022 Reason Comments Results Reason Comments Cough cough, chest and hea d congestion, and sneezing x 4 days Reason Comments 6 Month Exam Reason Comments toenail removal Follow Up Reason Onset Date Comments Refill Request 03/09/2022 Reason Comments Established Patient Follow Up Reason Comments Forms Reason Onset Date Comments Refill Request 07/22/2022 Reason Onset Date Comments Refill Request 09/18/2022 Reason Onset Date Comments Refill Request 11/21/2022 Reason Onset Date Comments Refill Request 01/26/2023 Reason Comments sore nose Sore right nostril, CRONIN x 4 days Reason Onset Date Comments Refill Request 12/07/2023 Reason Comments Menorrhagia Reason Comments Radiology US Specialty Diagnoses / Procedures Referred By Contac t Referred To Contact US IMAGING Diagnoses Menorrhagia with irregular cycle Procedures US FEMALE PELVIS TRANSVAG US TRANSVAGINAL OlyaSamanta crowell, CONCRETE STONE FINISHER.BIOINFORMATICS COMPUTER SCIENTIST [address] [facility] [place] [address] [place] [id number] Referral ID Status Reason Start Date Expiration Date V isits Requested Visits Authorized [id number] Closed Auto-Generate d Referral 12/16/2023 01/14/2025 1 1 Reason Comments Endometrial Biopsy Specialty Diagnoses / Procedures Referred By Cox Bransonac t Referred To Contact [facility] Diagnoses Menorrhagia with irregular cycle Procedures ENDOMETRIAL BIOPSY ENDOMETRIAL BX W/WO ENDOCERVIX BX W/O DILAT SPX Samanta Dobson, CONCRETE STONE FINISHER.BIOINFORMATICS COMPUTER SCIENTIST [address] [place] [address] [facility] [address] [place] [address] Referral ID Status Reason Start Date Expiration Date V isits Requested Visits Authorized [id number] Closed Auto-Generate d Referral 01/08/2024 01/07/2025 1 1 Reason Comments Results Reason Comments Discussion Reason Comments Pre-Op Visit Reason Comments Post-Op Visit Reason Comments Pre-Op Exam Reason Comments Appointment Reason Comments Follow Up 6 month Reason Comments 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 Reason Comments Medication Problem Reason Comments New Patient Specialty Diagnoses / Procedures Referred By Ivanna t Referred To Contact Hematology Diagnoses Leukocytosis, unspecified type Procedures CONSULT TO HEMATOLOGY OFFICE/OUTPATIENT NEW HIGH MDM 60 MINUTES Myranda Dallas, CONCRETE STONE FINISHER.BIOINFORMATICS COMPUTER SCIENTIST [address] [place] [address] Referral ID Status Reason Start Date Expiration Date V isits Requested Visits Authorized [id number] Closed PCP Requested Referral 03/16/2024 03/16/2025 1 1 Reason Comments Post-Op Visit Reason Comments Orders Reason Onset Date Comments Refill Request 06/05/2024 Reason Onset Date Comments Refill Request 10/30/2023 Reason Comments Dizziness feeling of her heart rcing and feeling l baljit something is go Reason Comments Dizziness Palpitations Reason Comments Depression 4 week follow up Anxiety Reason Comments Back Pain lower right side emre k and lower right sided abdominal pain x 9 days Reason Comments Follow Up Reason Comments Radiology CT Specialty Diagnoses / Procedures Referred By Ivanna fernandes Referred To Contact CT IMAGING Diagnoses Intra-abdominal and pelvic swelling, mass and lump, unspecified site Procedures CT CHEST W IVCON DIAGNOSTIC COMPUTED TOMOGRAPHY THORAX W/CONTRAST Aaron Blount MD [address] [place] [address] Phone: tel: fax: [id number] Referral ID Status Reason Start Date Expiration Date V isits Requested Visits Authorized [id number] Closed Auto-Generate d Referral 02/07/2025 03/09/2026 1 1 Care Teams (unrecognized sec tion and content) Baseball Pitcher Relationship Specialty Start Date End Date Albert Ferrer PA-C [address] [place] [address] PCP - General Family Practice 03/30/18 Baseball Pitcher Relationship Specialty Start Date End Date Albert Ferrer PA-C [address] [place] [address] PCP - General Family Practice 03/30/18 Baseball Pitcher Relationship Specialty Start Date End Date Albert Ferrer PA-C [address] [place] [address] PCP - General Family Practice 03/30/18 Baseball Pitcher Relationship Specialty Start Date End Date Albert Ferrer PA-C [address] [facility] [place] [address] PCP - General Family Practice 03/30/18 Baseball Pitcher Relationship Specialty Start Date End Date Albert Ferrer PA-C [address] [facility] [place] [address] PCP - General Family Practice 03/30/18 Baseball Pitcher Relationship Specialty Start Date End Date Albert Ferrer PA-C [address] [facility] [place] [address] PCP - General Family Practice 03/30/18 Baseball Pitcher Relationship Specialty Start Date End Date Albert Ferrer PA-C [address] [facility] [place] [address] PCP - General Family Practice 03/30/18 Baseball Pitcher Relationship Specialty Start Date End Date Albert Ferrer PA-C [address] [facility] [place] [address] PCP - General Family Practice 03/30/18 Baseball Pitcher Relationship Specialty Start Date End Date Albert Ferrer PA-C [address] [facility] [place] [address] PCP - General Family Practice 03/30/18 Baseball Pitcher Relationship Specialty Start Date End Date Albert Ferrer PA-C [address] [facility] [place] [address] PCP - General Family Practice 03/30/18 Baseball Pitcher Relationship Specialty Start Date End Date Albert Ferrer PA-C [address] [facility] [place] [address] PCP - General Family Practice 03/30/18 Baseball Pitcher Relationship Specialty Start Date End Date Albert Ferrer PA-C [address] [place] [address] PCP - General Family Medicine 03/30/18 Baseball Pitcher Relationship Specialty Start Date End Date Albert Ferrer PA-C [address] [place] [address] PCP - General Family Medicine 03/30/18 Baseball Pitcher Relationship Specialty Start Date End Date Albert Ferrer PA-C [address] [place] [address] PCP - General Family Medicine 03/30/18 Baseball Pitcher Relationship Specialty Start Date End Date Albert Ferrer PA-C [address] [place] [address] PCP - General Family Medicine 03/30/18 Baseball Pitcher Relationship Specialty Start Date End Date Albert Ferrer PA-C [address] [place] [address] PCP - General Family Medicine 03/30/18 Baseball Pitcher Relationship Specialty Start Date End Date Albert Ferrer PA-C [address] [place] [address] PCP - General Family Medicine 03/30/18 Baseball Pitcher Relationship Specialty Start Date End Date Albert Ferrer PA-C [address] [place] [address] PCP - General Family Medicine 03/30/18 Baseball Pitcher Relationship Specialty Start Date End Date Albert Ferrer PA-C [address] [place] [address] PCP - General Family Medicine 03/30/18 Baseball Pitcher Relationship Specialty Start Date End Date Albert Ferrer PA-C [address] [place] [address] PCP - General Family Medicine 03/30/18 Baseball Pitcher Relationship Specialty Start Date End Date Albert Ferrer PA-C [address] [place] [address] PCP - General Family Medicine 03/30/18 Baseball Pitcher Relationship Specialty Start Date End Date Albert Ferrer PA-C [address] [place] [address] PCP - General Family Medicine 03/30/18 Baseball Pitcher Relationship Specialty Start Date End Date Albert Ferrer PA-C [address] [place] [address] PCP - General Family Medicine 03/30/18 Baseball Pitcher Relationship Specialty Start Date End Date Albert Ferrer PA-C [address] [place] [address] PCP - General Family Medicine 03/30/18 Baseball Pitcher Relationship Specialty Start Date End Date Albert Ferrer PA-C [address] [place] [address] PCP - General Family Medicine 03/30/18 Baseball Pitcher Relationship Specialty Start Date End Date Albert Ferrer PA-C [address] [facility] [place] [address] PCP - General Family Medicine 03/30/18 Baseball Pitcher Relationship Specialty Start Date End Date Albert Ferrer PA-C [address] [facility] [place] [address] PCP - General Family Medicine 03/30/18 Baseball Pitcher Relationship Specialty Start Date End Date Albert Ferrer PA-C [address] [facility] [place] [address] PCP - General Family Medicine 03/30/18 Baseball Pitcher Relationship Specialty Start Date End Date Albert Ferrer PA-C [address] [facility] [place] [address] PCP - General Family Medicine 03/30/18 Baseball Pitcher Relationship Specialty Start Date End Date Albert Ferrer PA-C [address] [facility] [place] [address] PCP - General Family Medicine 03/30/18 Baseball Pitcher Relationship Specialty Start Date End Date Albert Ferrer PA-C [address] [facility] [place] [address] PCP - General Family Medicine 03/30/18 Baseball Pitcher Relationship Specialty Start Date End Date Albert Ferrer PA-C [address] [facility] [place] [address] PCP - General Family Medicine 03/30/18 Baseball Pitcher Relationship Specialty Start Date End Date Albert Ferrer PA-C [address] [facility] [place] [address] PCP - General Family Medicine 03/30/18 Baseball Pitcher Relationship Specialty Start Date End Date Albert Ferrer PA-C [address] [facility] [place] [address] PCP - General Family Medicine 03/30/18 Baseball Pitcher Relationship Specialty Start Date End Date Albert Ferrer PA-C [address] [facility] [place] [address] PCP - General Family Medicine 03/30/18 Baseball Pitcher Relationship Specialty Start Date End Date Albert Ferrer PA-C [address] [facility] [place] [address] PCP - General Family Medicine 03/30/18 Baseball Pitcher Relationship Specialty Start Date End Date Albert Ferrer PA-C [address] [place] [address] PCP - General Family Medicine 03/30/18 Baseball Pitcher Relationship Specialty Start Date End Date Albert Ferrer PA-C [address] [facility] [place] [address] PCP - General Family Medicine 03/30/18 Baseball Pitcher Relationship Specialty Start Date End Date Myranda Dallas, CONCRETE STONE FINISHER.BIOINFORMATICS COMPUTER SCIENTIST [address] [facility] [place] [address] PCP - General Family Medicine 09/14/24 Mine [place], CONCRETE STONE FINISHER.BIOINFORMATICS COMPUTER SCIENTIST [address] [facility] [place] [address] Hadoop Developer Family Medicine 08/06/24 Myranda Dallas, CONCRETE STONE FINISHER.BIOINFORMATICS COMPUTER SCIENTIST [address] [facility] [place] [address] Hadoop Developer Family Medicine 08/06/24 Baseball Pitcher Relationship Specialty Start Date End Date Myranda Dallas CONCRETE STONE FINISHER.BIOINFORMATICS COMPUTER SCIENTIST [address] [facility] [place] [address] PCP - General Family Medicine 09/14/24 [place], CONCRETE STONE FINISHER.BIOINFORMATICS COMPUTER SCIENTIST [address] [facility] [place] [address] Hadoop Developer Family Medicine 08/06/24 Myranda Dallas, CONCRETE STONE FINISHER.BIOINFORMATICS COMPUTER SCIENTIST [address] [facility] [place] [address] [facility] 08/[facility] Baseball Pitcher Relationship Specialty Start Date End Date Myranda Dallas, CONCRETE STONE FINISHER.BIOINFORMATICS COMPUTER SCIENTIST [address] [facility] [place] [address] PCP - General Family Medicine 09/14/24 [place], CONCRETE STONE FINISHER.BIOINFORMATICS COMPUTER SCIENTIST [address] [place] [address] Hadoop Developer Family Medicine 08/06/24 Myranda Dallas, CONCRETE STONE FINISHER.BIOINFORMATICS COMPUTER SCIENTIST [address] [facility] [place] [address] Hadoop Developer Family Medicine 08/06/24 Baseball Pitcher Relationship Specialty Start Date End Date Myranda Dallas, CONCRETE STONE FINISHER.BIOINFORMATICS COMPUTER SCIENTIST [address] [facility] [place] [address] PCP - General Family Medicine 09/14/24 [place], CONCRETE STONE FINISHER.BIOINFORMATICS COMPUTER SCIENTIST [address] [facility] [place] [address] Replaced By [facility] 08/06/24 11/22/24 Myranda Dallas, CONCRETE STONE FINISHER.BIOINFORMATICS COMPUTER SCIENTIST [address] [facility] [place], [place] [id number] Replaced By [facility] 08/06/24 11/22/24 Baseball Pitcher Relationship Specialty Start Date End Date Myranda Dallas, CONCRETE STONE FINISHER.BIOINFORMATICS COMPUTER SCIENTIST [address] [facility] [place], [place] [address] PCP - General Family Medicine 09/14/24 Team Status: Active Member Role Status Dates EVY Jefferson Primary Care Provider Active Team Status: Inactive Member Role Status Dates Dr. Jostin Stone DO Emergency Provider Active Start: January 17, 2025 End: January 17, 2025 Myranda Dallas , SCHOOL AGE TEACHER Primary Care Provider Active Start: January 17, 2025 End: January 17, 2025 Baseball Pitcher Relationship Specialty Start Date End Date Myranda Dallas, CONCRETE STONE FINISHER.BIOINFORMATICS COMPUTER SCIENTIST [address] [facility] [place], [place] [address] PCP - General Family Medicine 09/14/24 Baseball Pitcher Relationship Specialty Start Date End Date Myranda Dallas, CONCRETE STONE FINISHER.BIOINFORMATICS COMPUTER SCIENTIST [address] [facility] [place] [id number] PCP - General Family Medicine 09/14/24 Team Status: Inactive Member Role Status Dates Dr. Jostin Stone DO Attending Provider Active Start: January 17, 2025 End: January 17, 2025 Dr. Jostin Stone DO Emergency Provider Active Start: January 17, 2025 End: January 17, 2025 EVY Jefferson Primary Care Provider Active Start: January 17, 2025 End: January 17, 2025 Team Status: Inactive Member Role Status Dates Myranda Dallas SCHOOL AGE TEACHER Primary Care Provider Active Start: January 30, 2025 End: January 30, 2025 Dr. Bryson Treviño MD Emergency Provider Active S tart: January 30, 2025 End: January 30, 2025 Baseball Pitcher Relationship Specialty Start Date End Date Myranda Dallas APRN.BIOINFORMATICS COMPUTER SCIENTIST [address] [facility] [place] [address] PCP - General Family Medicine 09/14/24 Baseball Pitcher Relationship Specialty Start Date End Date Myranda Dallas APRN.BIOINFORMATICS COMPUTER SCIENTIST [address] [facility] [place] [address] PCP - General Family Medicine 09/14/24 Baseball Pitcher Relationship Specialty Start Date End Date Myranda Dallas APRN.BIOINFORMATICS COMPUTER SCIENTIST [address] [facility] [place] [address] PCP - General Family Medicine 09/14/24 Baseball Pitcher Relationship Specialty Start Date End Date Myranda Dallas APRN.BIOINFORMATICS COMPUTER SCIENTIST [address] [facility] [place] [address] PCP - General Family Medicine 09/14/24 Baseball Pitcher Relationship Specialty Start Date End Date Myranda Dallas CONCRETE STONE FINISHER.BIOINFORMATICS COMPUTER SCIENTIST [address] [facility] [place] [address] PCP - General Family Medicine 09/14/24 Goals (unrecognized section and content) Goals may be documented in a n alternate section FOR RECORDS PERTAINING TO PATIENTS WHO ARE OR HAVE BEEN ENROLLED IN A CHEMICAL DEPENDENCY/SUBSTANCEABUSE PROGRAM, SOME INFORMATION MAY BE OMITTED. This clinical summary was aggregated from multiple sources. Caution should be exercised in using it in the provision of clinical care. This summary normalizes information from multiple sources, and as a consequence, information in this document may materially change the coding, format and clinical context of patient data. In addition, data may be omitted in some cases. CLINICAL DECISIONS SHOULD BE BASED ON THE PRIMARY CLINICAL RECORDS. [employer] provides no warranty or guarantee of the accuracy or completeness of information in this document.
[2025-02-20] MEDS: DiphenhydrAMINE 50 MG/ML Syringe 25 MG IV (08:54)
[2025-02-20] MEDS: 0.9% Normal Saline (1000mL) 1,000 ML 999 ML IV (08:54)
[2025-02-20] MEDS: HYDROmorphone 1 MG/ML Syringe 0.5 MG IV (08:55)
[2025-02-20] MEDS: Ketorolac 15 MG/ML Vial IV (08:56)
[2025-02-20] MEDS: Ondansetron 4 MG/2 ML Vial IV (08:57)
[2025-02-20 09:12] LABS: Absolute Lymphocyte Count 4.81 X10^3/uL (0.83-4.51); Absolute Neutrophil Count 6.8 X10^3/uL (2.0-7.7); Basophil# 0.06 X10^3/uL; Basophil% 0.5 % (0-1); Eosinophil# 0.57 X10^3/uL; Eosinophils% 4.4 % (0-5); Hematocrit 40.1 % (37-47); Hemoglobin 13.6 g/dL (12.0-15.0); Lymphocyte # 4.81 X10^3/ul (0.83-4.51); Lymphocyte % 36.8 % (19-41); Mean Corp Hgb Conc 33.9 g/dL (32-36); Mean Corpuscular Hgb 31.6 pg (27.0-32.0); Mean Platelet Vol. 10.6 fl (6.2-12.0); Monocyte# 0.79 X10^3/uL; NRBC Flagged by Analyzer 0 % (0-5); Neutrophil # 6.82 X10^3/uL (2.7-7.7); Neutrophil % 52.1 % (47-70); Platelet Count 332 K/mm3 (150-450); RBC Distribution Width CV 11.9 % (11.6-14.6); RBC Distribution Width SD 40.1 fl (35.1-43.9); Red Blood Count 4.31 M/mm3 (4.2-5.4); White Blood Count 13.1 K/mm3 (4.4-11.0)
[2025-02-20 09:43] LABS: Lactic Acid 1.7 mmol/L (0.0-2.0); Lipase 66 U/L (13-75)
[2025-02-20] MEDS: HYDROmorphone 1 MG/ML Syringe IV ×3 (09:44→12:49)
[2025-02-20 09:46] LABS: ALB/GLOB Ratio 1.2 RATIO (0.9-2.4); AST(SGOT) 25 U/L (<=31); Alanine Aminotransfer ALT/SGPT 36 U/L (<=34); Albumin, Serum 4.3 g/dL (3.5-5.0); Alkaline Phosphatase 80 U/L (35-104); Anion Gap 13 (5-15); BUN 11 mg/dL (4-19); BUN/Creat Ratio 12.4 RATIO (10-20); Calcium,Total 9.4 mg/dL (7.6-11.0); Carbon Dioxide 21.4 mmol/L (21.0-32.0); Chloride 103 mmol/L (98-108); EST Glomerular Filtration Rate 81 (>60); Estimated Creatinine Clearance 81.72 ml/min (50-250); Globulin 3.5 g/dL (2.2-4.2); Glucose 188 mg/dL (70-99); Potassium 4.1 mmol/L (3.3-5.1); Protein, Total 7.8 g/dL (5.9-8.4); Sodium Level 138 mmol/L (133-145)
[2025-02-20 09:50] LABS: Internal QC Validated? YES +Cl - CLEAR BKGD; Pregnancy, Urine Negative Negative
--- NOTE | 2025-02-20 09:55 | CT_ITS ---
PROCEDURE: ABDOMEN/PELVIS W IV CONT ONLY N/A REASON FOR EXAM: LOWER ABDOMINAL PAIN, HISTORY OF OVARIAN MASS TECHNIQUE: ABDOMEN/PELVIS W IV CONT ONLY. Coronal and Sagittal reconstruction series were provided. CONTRAST: Isovue 370 VOLUME: 100 mL One or more dose reduction techniques were used (e.g., Automated exposure control, adjustment of the mA and/or kV according to patient size, use of iterative reconstruction technique. RADIATION DOSE SUMMARY: DLP: 1200 mGycm COMPARISON: CT abdomen pelvis 01/17/2025. FINDINGS: Lung bases: Unremarkable. Liver: Moderate hepatomegaly measuring 24 cm. No suspicious hepatic lesion. The major portal veins are patent. Gallbladder: Surgically absent. Spleen: Normal in size. Pancreas: Unremarkable. Adrenals: No adrenal mass. Kidneys: Stable tiny punctate right renal calculus. No hydronephrosis or left renal calculi. Bladder: Mildly distended and unremarkable. Reproductive Organs: Significant increased size of the right ovarian mass demonstrating mixed areas of hyperdensity and hypodensity. Additional dependent layering of the hyperdensity, which may indicate recent hemorrhage (however patient was supine during examination), best visualized on sagittal image 98. The mass now measures at least 9.6 x 5.7 cm (coronal image 61), previously measuring 6.9 x 3.8 cm on prior imaging when measured in a similar fashion. Trace ascites within the pelvic cul-de-sac, increased since prior examination. The uterus and left ovary are grossly unremarkable. Bowel: The bowel loops are nondilated. No abdominal ascites or free air. Normal appendix. There is intimate association of the right ovarian mass with the right lower quadrant small bowel loops and distal sigmoid colon without obstruction. Lymph nodes: Stable, normal-sized mesenteric and retroperitoneal nodes. No enlarging or suspicious lymphadenopathy. Vasculature: The abdominal aorta and IVC are normal. Bones: No aggressive osseous lesions. CT/Abdomen/Pelvis W IV Cont ONLY IMPRESSION: 1. No acute abdominopelvic finding. 2. 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 Discussed with Dr. Saravia, who notes patient has surgical removal scheduled on Friday. 3. No lymphadenopathy. Trace pelvic ascites, of indeterminate etiology. Reading Location: [id number]
[2025-02-20 10:18] VITALS: BP 170/82; PULSE 60; RESP 16; O2SAT 97
[2025-02-20 11:21] LABS: Bacteria 0 SEEN /hpf (None Seen); Color, Urine Yellow (Yellow); Glucose, Dipstick 1000 mg/dl (Normal); Ketone-Dipstick Negative (Negative); Leukocyte Esterase-Dipstick 500 /ul (Negative); Mucous, Urine 0 SEEN /hpf (<or=2+); Nitrite-Dipstick Negative (Negative); Occult Blood-Urine 10 /ul (Negative); Protein-Dipstick 15 mg/dl (Negative); Red Blood Cells-Urine 0 SEEN /hpf (0-5); Urine Bilirubin Dipstick Negative (Negative); Urine Clarity Clear (Clear); Urine Urobilinogen Normal (Normal); Urine pH 6.5 (5.0 - 8.0)
[2025-02-20 11:22] LABS: Squamous Epithelial Cells - UA 0-5 SEEN /hpf (5-10); White Blood Cells 0-5 SEEN /hpf (0-5)
[2025-02-20 12:00] VITALS: BP 159/94; PULSE 66; RESP 18; O2SAT 94
[2025-02-20 12:46] VITALS: BP 159/94; PULSE 54; RESP 14; TEMP 36.8; O2SAT 99
== END 2025-02-20 12:58 | disposition home or self-care (01) ==
PROVIDERS: Emergency Provider Emergency Medicine; PCP Clinical Nurse Specialist Adult Health; Visit Provider Emergency Medicine
DX: R10.9 Unspecified abdominal pain (principal); E11.9 Type 2 diabetes mellitus without complications; E66.9 Obesity, unspecified; N83.8 Other noninflammatory disorders of ovary, fallopian tube and broad ligament; E78.00 Pure hypercholesterolemia, unspecified; R19.7 Diarrhea, unspecified; I10 Essential (primary) hypertension; Z79.899 Other long term (current) drug therapy; F17.290 Nicotine dependence, other tobacco product, uncomplicated; K59.00 Constipation, unspecified
CPT/HCPCS: 74177; 80053; 81001; 81025; 83605; 83690; 85025; 96361; 96374; 96375; 96376; 99284; Q9967; A4216; J2405

== ENCOUNTER 2025-02-20 16:22 | Emergency (ER) | payer OTHER, SELFPAY ==
[2025-02-20 16:22] VITALS: BP 177/83; PULSE 49; RESP 18; TEMP 37.1; O2SAT 100
--- OUTSIDE RECORDS SUMMARY | 2025-02-20 16:51 | XMS RPT_ITS | CCD ---
Author Organization [facility] Care Team Providers Care Overedge Sewer Name Role Phone Nabil HAMM, Edmond Lane Primary Care Provider [phone] NABIL LADD, MR Edmond LANE Primary Care Physician SANDI HAMMONDS DO Attending Unavailable NABIL LADD, MR Edmond L[address] Primary Care Unavaila ble Nabil HAMM, Edmond Bernabe Primary Care Provider [phone] Nabil HAMM, Edmond Lane Primary Care Provider [phone] JJ AL Attending Unavailable SELF, SELF Referring Unavailable Haagen 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 OPERATOR.ANNUAL GREENHOUSE MANAGER, Mine Unavailable Suppan 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 OPERATOR.ANNUAL GREENHOUSE MANAGER, Myranda A Unavailable Suppan 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 OPERATOR.ANNUAL GREENHOUSE MANAGER, Myranda A Primary Care Provi denisse Haagen 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 OPERATOR.ANNUAL GREENHOUSE MANAGER, Mine Unavailable Suppan 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 OPERATOR.ANNUAL GREENHOUSE MANAGER, Myranda A Unavailable [phone] Dr. Jostin Stone DO Emergency Provider Suppan EVY, Myranda Primary Care Provider Dr. Jostin Stone DO Attending Provider Dr. Bryson Treviño MD Emergency Provider [phone] Edmond Suarez Primary Care Unavailable Vincent Choi Attending Unavailable Cheryl, Zheng Referring Unavailable Edmond Suarez Primary Care Unavailable Cheryl, Zheng Attending Unavailable Cheryl, Zheng Referring Unavailable Edmond Suarez Primary Care Unavailable Wiswell, Zheng Attending Unavailable Cheryl, Zehng Referring Unavailable Myranda Dallas Primary Care Unavailable Bryson Treviño Attending Unavailable Lloyd Thomas Attending Unavailable Edmond Suarez Primary Care Unavailable Suppan, Myranda Primary Care Unavailable Jostin Stone Attending Unavailable MASCI, JOSE A Referring Unavailable FERRER, CAROLYN LANE Primary Care Unavailable WISWELL, ZHENG Attending Unavailable SUPPAN, MYRANDA A Referring Unavailable FERRER, CAROLYN LANE Primary Care Unavailable WISWELL, ZHENG Attending Unavailable FERRER, CAROLYN LANE Primary Care Unavailable SUPPAN, MYRANDA A Referring Unavailable FERRER, CAROLYN LANE Primary Care Unavailable SUPPAN, MYRANDA A Attending Unavailable FERRER, CAROLYN LANE Primary Care Unavailable SUPPAN, MYRANDA A Referring Unavailable FERRER, CAROLYN LANE Primary Care Unavailable MASCI, JOSE A Attending Unavailable SUPPAN, MYRANDA A Referring [...] DAVILA DO Attending Unavailable NABIL LADD, MR Edmond LANE Primary Care Unavaila ble SUPPAN, MYRANDA A Primary Care Unavailable JOSE ALEJANDRO, AARON E Attending Unavailable MYRIAM RIVERA Referring Unavailable SUPPAN, MYRANDA A Primary Care Unavailable JOSE ALEJANDRO, AARON E Referring Unavailable SUPPAN, MYRANDA A Primary Care Unavailable JOSE ALEJANDRO, AARON E Attending Unavailable JOSE ALEJANDRO, AARON E Referring Unavailable JOSE ALEJANDRO, AARON E Referring Unavailable SUPPAN, MYRANDA A Primary Care Unavailable Hudson BEGUM, Dr. Massey Attending Provider Dr. Ankit Saravia DO Emergency Provider Allergies Allergy Classification Reported Allergen(s) Allergy Type Date of Onset Reaction(s) Facility Doxycycline (1 source) Doxycycline Drug Allergy 10-09-200 9 GI Upset [facility] Work Phone: Penicillins (antibiotic) (1 source) Penicillins Drug Allergy 6 Other: See Comments [facility] Quinolones (antibiotic) (1 source) moxifloxacin Drug Allergy 9 Rash [facility] Work Phone: Serotonin Reuptake Inhibitors (SSRIs) (1 source) FLUoxetine Drug Allergy 1 Other: See Comments [facility] (20 sources) Doxycycline; Translations: [doxycycline] Drug Allergy 9 GI Upset [facility] Work Phone: (20 sources) FLUoxetine; Translations: [FLUOXETINE HCL] Drug Allergy 1 Other: See Comments [facility] Work Phone: (20 sources) moxifloxacin; Translations: [MOXIFLOXACIN HCL] Drug Allergy 9 Rash [facility] Work Phone: (15 sources) Penicillins; Translations: [PENICILLINS] Propensity to adverse reactions to drug 6 Other: See Comments [facility] Work Phone: (20 sources) Penicillins Propensity to adverse reactions to drug 6 Other: See Comments [facility] Work Phone: (2 sources) moxifloxacin; Translations: [moxifloxacin] Drug Allergy Rash [facility] (2 sources) Penicillin; Translations: [penicillin] Drug Allergy Unknown [facility] (8 sources) Penicillins Propensity to adverse reactions to drug 6 Other: See Comments [facility] (3 sources) Penicillins Allergy to substance 5 Hives [facility] (9 sources) Morphine; Translations: [MORPHINE] Drug Allergy 5 Rash, Hives, Itching [facility] (1 source) Doxycycline Drug Allergy 5 [facility] Repository (1 source) Morphine Drug Allergy 5 [facility] Repository (1 source) moxifloxacin Drug Allergy 5 [facility] Repository (1 source) Penicillins Drug allergy (disorder) [facility] Repository Medications Current Medications Medication Drug Class(es) Dates Sig (Normalized) Sig (Original) acetaminophen 325 mg / HYDROcodone bitartrate 5 mg oral tablet (20 sources) Opioid Agonist Start: 02-20-2025 Hydrocodone-Acetam inophen 5-325 mg tablet Active 1 {tbl} PO 3 TIMES DAILY NEEDED as needed for pain February 20, 2025 12:00am Start: 02-08-2025 take 1 tablet by ulisses th three times daily for pain HYDROcodone-acetaminophen (NORCO) 5-325 mg per tablet take [...] 4 HOURS NEEDED as needed for Pain 21 10December 17, 2019 December 18, 2019 12:00am December 19, 2019 12:01am Comment on above: Take 5-325 tablets b y mouth twice daily as needed. [id number] 200 actuat albuterol 0.09 mg/actuat metered dose [...] oral tablet (20 sources) Tricyclic Antidepressant Start: 025 End: 025 take 1 tablet by mouth at bedtime Amitriptyline 100 mg tablet Active 100 mg PO AT BEDTIME February 20, 2025 12:00am Start: 06-07-2024 End: 11-18-2024 take 1-2 tablets [...] 60 tablet 4 01/29/2023 Active Start: 06-12-2021 End: 02-20-2025 take 2 tablets by mouth at bedtime Amitriptyline 50 mg tablet Discontinued 100 mg PO AT BEDTIME June 12, 2021 12:00am February 20, 2025 8:48am Start: 05-02-2018 End: 01-26-2023 take 1-2 tablets [...] day. 60 tablet 4 11/18/2024 Active Start: 05-02-2018 End: 10-30-2023 take 1 tablet by mouth twice daily busPIRone HCl 30 mg tablet Indications: Depressive disorder Take 1 tablet by mouth two times a day. 60 tablet 0 09/25/2023 10/30/2023 Discontinued Comment on above: Take 1 tablet by ulisses th twice daily. Take 1 tablet by ulisses th two times a day. cholecalciferol 0.125 mg oral tablet (3 sources) Vitamin D Start: 04-20-20 take 1 tablet by mouth once daily Cholecalciferol (Vitamin D3) (Vitamin D3) 125 mcg (5,000 unit) tablet Active 125 ug PO DAILY April 20, 2024 12:00am On Hold: Ordered cholecalciferol, vitamin D3, (VITAMIN D3 ORAL) (20 sources) take 1 tablet by mouth once daily cholecalciferol, vitamin D3, (VITAMIN D3 ORAL) Take 1 tablet by mouth once daily. Active cholecalciferol, vitamin D3, (VITAMIN D3 ORAL) Take by mouth. Active cholecalciferol, vitamin D3, (VITAMIN D3 ORAL) Take by mouth. 0 Active Comment on above: Take by mouth. docusate sodium 100 mg oral capsule (6 sources) Start: 2024 End: 2024 take 1 capsule by mouth twice daily Docusate Sodium 100 mg capsule Active 100 mg PO TWICE A DAY February 20, 2025 12:00am empagliflozin 25 mg oral tablet (10 sources) Sodium-Glucose Cotransporter 2 Inhibitor Start: 2024 End: 2025 take 1 tablet by mouth once daily Empagliflozin (Empagliflozin 25 Mg Tablet) 25 mg tablet Active 25 mg PO DAILY February 20, 2025 12:00am On Hold: Ordered enteric contrast (will be provided with radiology test) (5 sources) Start: 2024 enteric contrast (will be provided with radiology [...] g/118 mL rectal enema (1 source) Start: 2024 End: 2024 take 1 dose rectal route once daily as needed for constipation Fleet Enema 19 g-7 g/118 mL rectal enema Dose = 1 EA, Rectal, qDay, PRN as needed for constipation, # 1 EA, 0 Refill(s) Start Date: 02/07/25 Stop Date: 02/14/25 Status: Ordered Quantity: 1.0 Unit: EA Repeat number: 1 fluorometholone 1 mg/ml ophthalmic suspension (1 source) Corticosteroid Start: 2024 Fluorometholone 0.1 % drops,suspension Active 1 NMA OPHTHALMIC TWICE A DAY February 20, 2025 12:00am HYDROmorphone hydrochloride 4 mg oral tablet (1 source) Opioid Agonist Start: 2024 take 1 tablet by mouth every four hours as needed for pain Hydromorphone (Dilaudid) 4 mg tablet Active 4 mg PO Q4H as needed for pain 18 01February 20, 2025 Start: 02-20-2025 take 1 tablet by ulisses th every four hours as needed for pain Hydromorphone (Dilaudid) 4 mg tablet Active 4 mg PO Q4H as needed for pain 20 February 20, 2025 hydrOXYzine hydrochloride 10 mg oral tablet (9 sources) Antihistamine Start: 02-20-2025 take 1 tablet by mouth three times daily as needed for anxiety Hydroxyzine Hcl 10 mg tablet Active 10 mg PO 3 TIMES DAILY NEEDED as needed for anxiety February 20, 2025 12:00am Start: 12-13-2024 take 1 tablet by ulisses th every eight hours as needed hydrOXYzine HCl (ATARAX) 10 mg tablet Take 10 mg by mouth three times a day as needed for anxiety. 12/13/2024 Active iv contrast (will be provided with radiology test) (5 sources) Start: 02-07-2025 iv contrast (w ill be provided with radiology test) Indications: Intra-abdominal [...] 400 mg oral tablet (20 sources) Start: 11-22-2024 End: 11-22-2025 take 1 tablet by mouth three times [...] take 1 tablet by mouth twice daily Metformin 1,000 mg tablet Active 1000 mg PO TWICE A DAY April 20, 2024 12:00am Start: 11-01-2023 End: 02-27-2024 take 1 tablet [...] take 1 tablet by mouth twice daily Metformin HCl 850 MG tablet Discontinued 850 mg PO TWICE A DAY July 24, 2013 1:00am June 12, 2021 8:13am Comment on above: Take 1 tablet by [...] on above: Take by mouth. Multivitamin tablet (3 sources) Start: 11-24-2018 Multivitamin t ablet Active 1 {tbl} PO DAILY November 24, 2018 12:00am On Hold: Ordered Start: 11-24-2018 Multivitamin t ablet Active 1 {tbl} PO DAILY November 24, [...] assistance is available 1 each 02/04/2025 Active Naloxone 4 mg/actuation spray,non-aerosol (1 source) Start: 02-20-2025 Naloxone 4 mg/actuation spray,non-aerosol Active 1 NMA INTRANASAL NEEDED as needed for opioid overdose February 20, 2025 12:00am omega-3 fatty acids (FISH OIL CONCENTRATE) 1,000 mg cap (20 sources) Start: 06-12-2021 take 1 capsule by mouth once daily omega-3 fatty acids (FISH OIL CONCENTRATE) 1,000 mg cap Take 1,000 mg by mouth once daily. 06/12/2021 Active Start: 06-12-2021 take 1 capsule by mo [facility] once daily omega-3 fatty acids (FISH OIL CONCENTRATE) 1,000 mg cap Take 1,000 mg by mouth once daily. 0 06/12/2021 Active Comment on above: Take 1,000 mg by ulisses once daily. [place]-3 Fatty Acids (Fish Oil Concentrate) 1,000 mg capsule (3 sources) Start: 06-12-2021 [place]-3 Fatty Acids (Fish Oil Concentrate) 1,000 mg capsule Active 1200 mg PO TWICE A DAY June 12, 2021 12:00am On Hold: Ordered Start: 06-12-2021 [place]-3 Fatty Acids (Fish Oil Concentrate) 1,000 mg capsule Active 1200 mg PO TWICE A DAY June 12, 2021 12:00am oxyCODONE hydrochloride 5 mg oral tablet (2 sources) Opioid Agonist Start: 02-04-2025 End: 02-11-2025 take 1 tablet by mouth every eight hours as needed for pain oxyCODONE IR (ROXICODONE) 5 mg immediate release tablet Indications: Ovarian mass, right Take 1 tablet by mouth every 8 hours as needed for pain for up to 7 days. 21 tablet 02/04/2025 02/11/2025 Active polyethylene glycol 3350 [id number] mg powder for oral solution (19 sources) Osmotic Laxative Start: 04-22-2024 take 17 g by mouth once daily [...] mouth twice daily Propranolol 40 mg tablet Active 40 mg PO TWICE A DAY February 20, 2025 12:00am Start: 11-18-2024 End: 11-18-2024 take 1 tablet [...] tablet 1 06/07/2024 11/18/2024 Discontinued Start: 04-05-2024 End: 02-20-2025 take 1 tablet by mouth every twelve hours Propranolol 20 mg tablet Discontinued 20 mg PO Q12H April 05, 2024 12:00am February 20, 2025 8:49am Start: 09-25-2023 End: 03-23-2024 take 0.5 tablet [...] on above: Take 1 tablet by ulisses twice daily. Take 0.5 tablets by mouth two times a day. Sennosides (Sennosides 8.6 Mg Tablet) 8.6 mg tablet (1 source) Start: 02-21-20 take 1 tablet by mouth twice daily as needed for constipation Sennosides (Sennosides 8.6 Mg Tablet) 8.6 mg tablet Active 8.6 mg PO TWICE DAILY NEEDED as needed for constipation February 20, 2025 12:00am sennosides, longterm 8.6 mg oral tablet (5 sources) Start: [...] End: 11-19-19 take 1 tablet by mouth at bedtime Simvastatin 40 mg tablet Active 40 mg PO AT BEDTIME May 19, 2021 12:00am Comment on above: Take 1 tablet by ulisses th daily at bedtime. SUMAtriptan 100 mg oral tablet (10 sources) Serotonin-1b and Serotonin-1d Receptor Agonist Start: 02-21-20 take 1 tablet by mouth every two hours Sumatriptan Succinate (Imitrex) 100 mg tablet Active 0 PO .COMPLEX February 20, 2025 12:00am take 1 tab at onset of headache; if no relief, may repeat 1 tab after at least 2 hrs; max = 2 tabs/24 hrs Start: 06-12-2021 End: 04-15-2022 take 1 tablet [...] NASAL DAILY as needed for Migraine Symptoms November 16, 2018 1:08pm June 12, 2021 8:12am may repeat in 2 hours if still having migraine tiZANidine 4 mg oral tablet (20 sources) Central alpha-2 Adrenergic Agonist Start: 05-02-2018 take 1 tablet by mouth every eight hours as needed Tizanidine 4 MG tablet Active 4 mg PO Q8H as needed for muscle spasticity May 02, 2018 12:00am Start: 05-02-2018 take 1 tablet by ulisses th twice daily for muscle spasms tiZANidine 4 [...] 1 09/25/2023 10/30/2023 Discontinued Start: 04-15-2022 End: 02-20-2025 take 1 tablet by mouth twice daily Topiramate 100 mg tablet Discontinued 100 mg PO TWICE A DAY 60 August 29, 2022 9:21am February 20, 2025 8:49am Start: 06-12-2021 End: 04-15-2022 Topiramate 50 mg [...] 1 capsule by mouth once daily Venlafaxine 75 mg capsule,extended release 24hr Active 75 mg PO DAILY February 20, 2025 12:00am Start: 02-26-2024 End: 02-25-2025 take 1 capsule by mouth once daily Venlafaxine 37.5 mg capsule,extended release 24hr Discontinued 37.5 mg PO DAILY April 05, 2024 12:00am February 20, 2025 9:02am Zinc (20 sources) take 50 mg by mouth once daily Z INC ORAL Take 50 mg by mouth once daily. Active ZINC ORAL Take b y mouth. Active ZINC ORAL Take b y mouth. 0 Active Comment on above: Take by mouth. Completed/Discontinued Medications Medication Drug Class(es) Dates Sig (Normalized) Sig (Original) acetaminophen 32 mg/ml oral solution (3 sources) Start: 11-16-2018 End: 02-20-2025 take 500 mg by mouth every four hours as needed for headache Acetaminophen 650 MG/20 ML solution Discontinued 500 mg PO EVERY 4 HOURS NEEDED as needed for Headache/Temp>99F November 16, 2018 12:00am February 20, 2025 8:51am acetaminophen 325 mg / oxyCODONE hydrochloride 5 mg oral tablet (9 sources) Opioid Agonist Start: 04-15-2024 End: 02-20-2025 Oxycodone-Acetamino phen (Percocet) 5-325 mg tablet Discontinued 1 {tbl} PO EVERY 6 HOURS as needed for pain 10 3 January 17, 2025 February 20, 2025 8:48am Blood Glucose Control High and Low (FREESTYLE [...] (Te st once day or as needed). celecoxib 200 mg oral capsule (20 sources) Nonsteroidal Anti-inflammatory Drug Start: 018 End: take 1 capsule by mouth once daily Celecoxib 200 MG capsule Discontinued 200 mg PO DAILY May 02, 2018 12:00am April 05, 2024 9:41am Comment on above: Take 200 mg by mouth once daily. cephalexin 250 mg oral tablet (3 sources) Cephalosporin Antibacterial Start: 013 End: 014 take 1 capsule by mouth four times daily Keflex 250 MG capsule Discontinued 250 mg PO 4 TIMES DAILY July 24, 2013 1:00am October 12, 2013 12:06am 24 hr desvenlafaxine succinate 25 mg extended release oral tablet (20 sources) Serotonin and Norepinephrine Reuptake Inhibitor Start: 024 End: 025 take 1 tablet by mouth once daily Desvenlafaxine Succinate 25 mg tablet extended release 24 hr Discontinued 25 mg PO DAILY April 20, 2024 12:00am February 20, 2025 8:48am Start: 02-21-2022 End: 04-05-2024 take 1 tablet by mouth once daily desvenlafaxine ER (PRISTIQ) 25 mg 24 hr tablet Indications: Depressive disorder Take 1 tablet by mouth once daily. 30 tablet 4 12/08/2023 02/26/2024 Discontinued (Cost of medication) Comment on above: Take 1 tablet by ulisses th once daily. docosahexanoic acid/epa (FISH OIL ORAL) (11 sources) End: 02-21-2022 docosahexanoic acid/epa (FISH OIL ORAL) Indications: Rectal [...] Active Comment on above: Take by mouth. ibuprofen 600 mg oral tablet (3 sources) Nonsteroidal Anti-inflammatory Drug Start : 11-16 End: 02-20 take 1 tablet by mouth four times daily as needed for headache Ibuprofen 600 MG tablet Discontinued 600 mg PO 4 TIMES DAILY as needed for Headache 1 November 16, 2018 1:11pm February 20, 2025 9:01am 1 ml medroxyPROGESTERone acetate 150 mg/ml prefilled [...] completed) ondansetron 4 mg disintegrating oral tablet (6 sources) Serotonin-3 Receptor Antagonist Start : 06-12 End: 04-15 take 1 tablet by mouth three times daily as needed for nausea Ondansetron 4 mg tablet,disintegrating Discontinued 4 mg PO THREE TIMES A DAY as needed for Nausea June 12, 2021 5:14pm April 15, 2022 5:47pm Start: 05-19-2021 End: 06-12-2021 take 2 tablets by mouth every eight hours as needed for nausea Ondansetron 4 MG tablet Discontinued 8 mg PO EVERY 8 HOURS NEEDED as needed for Nausea May 19, 2021 12:00am June 12, 2021 5:17pm predniSONE 20 mg oral tablet (3 sources) Start: 07-24-2013 End: 10-11-2013 take 2 tablets by mouth once daily Prednisone 20 MG tablet Discontinued 40 mg PO DAILY July 24, 2013 1:00am October 12, 2013 12:05am rimegepant 75 mg disintegrating oral tablet (6 sources) Start: 04-15-2022 End: 02-20-2025 take 1 tablet by mouth once daily as needed for headache Rimegepant (Nurtec Odt) 75 mg tablet,disintegrat ing Discontinued 75 mg PO DAILY as needed for migraine headache August 29, 2022 9:20am February 20, 2025 8:49am rizatriptan 10 mg disintegrating oral tablet (1 source) Serotonin-1b and Serotonin-1d Receptor Agonist Start: 11-04-2019 End: 08-23-2021 take 1 tablet by mouth every two hours as needed rizatriptan (MAXALT-WATCH COMMANDER) 10 mg disintegrating tablet Indications: Migraine without [...] mg / trimethoprim 160 mg oral tablet (3 sources) Dihydrofolate Reductase Inhibitor Antibacterial, Sulfonamide Antimicrobial Start: 05-19-2021 End: 06-12-2021 Sulfamethoxazole-T rimethoprim 1 TABLET tablet Discontinued 1 {tbl} PO TWICE A DAY May 19, 2021 12:00am June 12, 2021 8:13am valACYclovir 1000 mg oral tablet (20 sources) [...] Date Documented Da te Episodic/Chronic Abdominal pain (7 sources) Chronic pelvic pain of female; Translations: [Pelvic and perineal pain] Onset: 02-01-2025 04-22-2024 Episodic Anxiety disorders (13 sources) Mixed anxiety and depressive disorder; Translations: [Other specified anxiety disorders] Onset: 02-26-2024 02-26-2024 Chronic Asthma (20 sources) Mild intermittent asthma; Translations: [Mild intermittent asthma, uncomplicated] Onset: 05-23-2006 Resolved: 03-30-2018 03-30-2018 Chronic Cardiac dysrhythmias (6 sources) Palpitations; Translations: [Palpitations] Onset: 11-18-2024 11-18-2024 Episodic Complications of surgical procedures or medical care (3 sources) Postoperative ileus; Translations: [Other postprocedural complications and disorders of digestive system] 04-29-2024 Episodic Conditions associated with dizziness or vertigo (3 sources) Dizziness; Translations: [Dizziness and giddiness] 09-18-2014 [...] unspecified] Onset: 06-05-2009 03-30-2018 Chronic Essential hypertension (3 sources) Benign essential hypertension; Translations: [Essential (primary) hypertension] 09-13-2013 Chronic Fluid and electrolyte disorders (3 sources) Hypokalemia; Translations: [Hypokalemia] 09-13-2013 Episodic Headache; including migraine (20 sources) Migraine without aura; Translations: [Migraine without aura, not intractable, without status migrainosus] Onset: 05-23-2006 08-23-2021 Chronic Headache; including migraine (3 sources) Headache; Translations: [Headache] 11-15-2018 Episodic Inflammatory [...] Onset: 08-20-2006 03-30-2018 Chronic Nonspecific chest pain (3 sources) Atypical chest pain; Translations: [Other chest [...] 05-23-2006 03-30-2018 Chronic Other female genital disorders (5 sources) Abnormal uterine bleeding; Translations: [Other specified [...] vagina] 04-22-2024 Episodic Other female genital disorders (12 sources) Mass of right ovary; Translations: [Other [...] serum enzymes] Episodic Other nervous system disorders (3 sources) Acute abdominal pain; Translations: [Other acute postprocedural pain] 04-29-2024 Episodic Other nervous system disorders (3 sources) Facial paresthesia; Translations: [Paresthesia of skin] 11-15-2018 Episodic Other nervous system disorders (3 sources) Postoperative pain ; Translations: [Other acute [...] Chronic Other nutritional; endocrine; and metabolic disorders (3 sources) Body mass index 30+ - obesity; [...] displacement, lumbar region] Onset: 08-04-2014 08-22-2021 Chronic Spondylosis; intervertebral disc disorders; other back problems (20 sources) Low back pain; Translations: [Lumbago] Onset: 05-23-2006 06-05-2009 Episodic Substance-related disorders (20 sources) Tobacco user; Translations: [Nicotine dependence, unspecified, uncomplicated] Onset: 06-05-2009 03-30-2018 Chronic Thyroid disorders (20 sources) Goiter; Translations: [Nontoxic goiter, unspecified] Onset: 09-28-2006 06-05-2009 Chronic Unclassified (2 sources) Finding of abdominopelvic segment of trunk 02-08-2025 Urinary tract infections (3 sources) Urinary tract infectious disease; Translations: [Urinary tract infection, site not specified] 05-27-2021 Episodic Viral infection (2 sources) Viral disease; Translations: [Viral infection, unspecified] Episodic Past or Other Problems Problem Classification Problem Date Documented Date Episodic/Chronic Biliary tract disease (20 sources) Gallstone; Translations: [Calculus of gallbladder without cholecystitis without obstruction] Onset: 10-17-2005 Resolved: 05-23-2006 05-23-2006 Episodic Calculus of urinary tract (20 sources) Ureteric stone; Translations: [Calculus of ureter] Onset: 05-23-2006 Resolved: 03-30-2018 03-30-2018 Episodic Diabetes or abnormal glucose tolerance complicating [...] status] Onset: 11-29-2018 Resolved: 08-23-2021 08-23-2021 Episodic Sprains and strains (20 sources) Lumbar sprain; Translations: [Sprain of ligaments of lumbar spine, initial encounter] Onset: 08-04-2014 Resolved: 03-30-2018 03-30-2018 Episodic Unclassified (16 sources) Transition of care; Translations: [Transition of care performed with sharing of clinical summary] Onset: 11-29-2018 Resolved: 08-23-2021 08-23-2021 Results Test Name Value Interpretation Reference Range Facility Absolute lymphocyte countOrd ered By: Ankit Saravia on 02-20-2025 Lymphocytes Auto (Unsp spec) [#/Vol] 4.81 10*3/uL High 0.83-4.51 [facility] Absolute neutrophil countOrd ered By: Ankit Saravia on 02-20-2025 Neutrophils (Bld) [#/Vol] 6.8 10*3/uL 2.0-7.7 [facility] Anion gap in Serum or Plasma Ordered By: Ankit Sraavia on 02-20-2025 Anion gap [Moles/Vol] 13 mmol/L 5-15 [facility] Automated lymphocyte count a s percentage of total leukocytesOrdered By: Ankit Saravia on 02-20-2025 Lymphocytes/100 WBC Auto (Unsp spec) 36.8 % 19-41 [facility] BUN/creatinine ratioOrdered By: Ankit Saravia on 02-20-2025 Urea nitrogen/Creatinine [Mass ratio] 12.4 mg/mg 10-20 [facility] Basophil percentageOrdered B y: Ankit Saravia on 02-20-2025 Basophils/100 WBC (Bld) 0.5 % 0-1 [facility] Bilirubin Test strip Ql (U)O rdered By: Ankit Saravia on 02-20-2025 Bilirubin Ql (U) Negative Negative [facility] Bilirubin, totalOrdered By: Ankit Saravia on 02-20-2025 Bilirubin [Mass/Vol] 0.30 mg/dL 0.00-1.30 [facility] Carbon dioxide, total [Moles /volume] in Central venous bloodOrdered By: Ankit Saravia on 02-20-2025 CO2 [Moles/Vol] 21.4 mmol/L 21.0-32.0 [facility] Chloride assayOrdered By: hallie Saravia on 02-20-2025 Chloride [Moles/Vol] 103 mmol/L 98-108 [facility] Eosinophil percentageOrdered By: Ankit Saravia on 02-20-2025 Eosinophils/100 WBC (Bld) 4.4 % 0-5 [facility] Erythrocyte distribution wid th ratioOrdered By: Ankit Saravia on 02-20-2025 Erythrocyte distribution width (RBC) [Ratio] 11.9 % 11.6-14.6 [facility] Erythrocyte distribution wid th standard deviationOrdered By: Ankit Saravia on 02-20-2025 Erythrocyte distribution width (RBC) [Ratio] 40.1 fl 35.1-43.9 [facility] Glomerular filtration rate ( GFR) estimation/1.73 sq m using serum, plasma, or whole bOrdered By: Ankit Saravia on 02-20-2025 GFR/1.73 sq M.predicted among non-blacks MDRD (S/P/Bld) [Vol rate/Area] 81 mL/min/{1.73_m2} >60 [facility] Comment on above: mL/min/1.73m2 CKD-EP I Creatinine Equation (2020) Hematocrit Auto (Bld) [Volum e fraction]Ordered By: Ankit Saravia on 02-20-2025 Hematocrit (Bld) [Volume fraction] 40.1 % 37-47 [facility] Hemoglobin measurementOrdere d By: Ankit Saravia on 02-20-2025 Hemoglobin (Bld) [Mass/Vol] 13.6 g/dL 12.0-15.0 [facility] Immature granulocytes/100 WB C Auto (Bld)Ordered By: Ankit Saravia on 02-20-2025 Immature granulocytes/100 WBC (Bld) 0.200 % 0.0-0.9 [facility] Comment on above: IG% - Immature Granu locytes (promyelocytes, myelocytes and metamyelocytes) > 1% indicates that a LEFT SHIFT is Present. Ketones Test strip Ql (U)Ord ered By: Ankit Saravia on 02-20-2025 Ketones Ql (U) Negative Negative [facility] Laboratory - Chemistry and C hemistry - challengeOrdered By: Ankit Saravia on 02-20-2025 AST [Catalytic activity/Vol] 25 U/L <32 [facility] Lactic acid measurementOrder ed By: Ankit Saravia on 02-20-2025 Lactate [Moles/Vol] 1.7 mmol/L 0.0-2.0 [facility] Lipase measurementOrdered By : Ankit Saravia on 02-20-2025 Lipase [Catalytic activity/Vol] 66 U/L 13-75 [facility] Comment on above: Please note:LIPASE r evised reference range effective 22. New Lipase methodology. Expected to produce lower values than the previous assay method. NEW Reference Range: 13 - 75 U/L MCV (mean corpuscular volume ) determinationOrdered By: Ankit Saravia on 02-20-2025 MCV (RBC) [Entitic vol] 93.0 fL 81-99 [facility] Mean corpuscular hemoglobin (MCH) determinationOrdered By: Ankit Saravia on 02-20-2025 MCH (RBC) [Entitic mass] 31.6 pg 27.0-32.0 [facility] Mean corpuscular hemoglobin concentration (MCHC) determinationOrdered By: Ankit Saravia on 02-20-2025 MCHC (RBC) [Mass/Vol] 33.9 g/dL 32-36 [facility] Mean platelet volume determi nationOrdered By: Ankit Saravia on 02-20-2025 Platelet mean volume (Bld) [Entitic vol] 10.6 fL 6.2-12.0 [facility] Microscopic analysis of urin e for red blood cells (RBC)Ordered By: Ankit Saravia on 02-20-2025 Microscopic analysis of urine for red blood cells (RBC) 0 SEEN /hpf 0-5 [facility] Monocyte percentageOrdered B y: Ankit Saravia on 02-20-2025 Monocytes/100 WBC (Bld) 6.0 % 0-10 [facility] Mucus LM Ql (Urine sed)Order ed By: Ankit Saravia on 02-20-2025 Mucus Ql (Urine sed) 0 SEEN /hpf [facility] Neutrophil percentageOrdered By: Ankit Saravia on 02-20-2025 Neutrophils/100 WBC (Bld) 52.1 % 47-70 [facility] Nitrite Test strip Ql (U)Ord ered By: Ankit Saravia on 02-20-2025 Nitrite Ql (U) Negative Negative [facility] Nucleated red blood cell per centageOrdered By: Ankit Saravia on 02-20-2025 Nucleated RBC/100 WBC (Bld) [Ratio] 0 % 0-5 [facility] Platelet countOrdered By: Benson Saravia on 02-20-2025 Platelets (Bld) [#/Vol] 332 10*3/uL 150-450 [facility] Potassium measurement (mass/ volume)Ordered By: Ankit Saravia on 02-20-2025 Potassium (Unsp spec) [Mass/Vol] 4.1 mmol/L 3.3-5.1 [facility] Comment on above: Hemolysis present, R esults could be affected. Protein Test strip Ql (U)Ord ered By: Ankit Saravia on 02-20-2025 Protein Ql (U) 15 mg/dl High Negative [facility] RBC Auto (Bld) [#/Vol]Ordere d By: Ankit Saravia on 02-20-2025 RBC (Bld) [#/Vol] 4.31 10*6/uL 4.2-5.4 [facility] Serum creatinine measurement (mass/volume)Ordered By: Ankit Saravia on 02-20-2025 Creatinine [Mass/Vol] 0.90 mg/dL 0.70-1.20 [facility] Serum globulin measurementOr dered By: Ankit Saravia on 02-20-2025 Globulin (S) [Mass/Vol] 3.5 g/dL 2.2-4.2 [facility] Serum glucose measurement (m ass/volume)Ordered By: Ankit Saravia on 02-20-2025 Glucose [Mass/Vol] 188 mg/dL High 70-99 [facility] Serum or plasma alanine belcher otransferase (ALT) measurementOrdered By: Ankit Saravia on 02-20-2025 ALT [Catalytic activity/Vol] 36 U/L High <35 [facility] Serum or plasma albumin tevin urement (mass/volume)Ordered By: Ankit Saravia on 02-20-2025 Albumin [Mass/Vol] 4.3 g/dL 3.5-5.0 [facility] Serum or plasma albumin/glob ulin mass ratioOrdered By: Ankit Saravia on 02-20-2025 Albumin/Globulin [Mass ratio] 1.2 {ratio} 0.9-2.4 [facility] Serum or plasma alkaline damon sphatase measurementOrdered By: Ankit Saravia on 02-20-2025 ALP [Catalytic activity/Vol] 80 U/L 35-104 [facility] Serum or plasma calcium tevin urement (mass/volume)Ordered By: Ankit Saravia on 02-20-2025 Calcium [Mass/Vol] 9.4 mg/dL 7.6-11.0 [facility] Serum or plasma urea nitroge n measurement (mass/volume)Ordered By: Ankit Saravia on 02-20-2025 Urea nitrogen [Mass/Vol] 11 mg/dL 4-19 [facility] Sodium levelOrdered By: aLura Saravia on 02-20-2025 Sodium [Moles/Vol] 138 mmol/L 133-145 [facility] Squamous epithelial cells de tection in urine sediment by light microscopyOrdered By: Ankit Saravia on 02-20-2025 Epithelial cells.squamous LM Ql (Urine sed) 0-5 SEEN /hpf 5-10 [facility] Total proteinOrdered By: Andreas Saravia on 02-20-2025 Protein [Mass/Vol] 7.8 g/dL 5.9-8.4 [facility] Urine clarityOrdered By: Andreas Saravia on 02-20-2025 Clarity (U) Clear Clear [facility] Urine color determinationOrd ered By: Ankit Saravia on 02-20-2025 Color (U) Yellow Yellow [facility] Urine glucose detectionOrder ed By: Ankit Saravia on 02-20-2025 Glucose Ql (U) 1000 mg/dl High Normal [facility] Urine leukocyte esterase det ection by dipstickOrdered By: Ankit Saravia on 02-20-2025 Leukocyte esterase Test strip Ql (U) 500 /ul High Negative [facility] Urine pHOrdered By: Ankit clay on 02-20-2025 pH (U) 6.5 [pH] 5.0 - 8.0 [facility] Urine testOrdered By: Ankit Saravia on 02-20-2025 HCG ( test) Ql (U) Negative [facility] Comment on above: Very dilute urine sp ecimens, as indicated by a low specificgravity, may not contain education courses sales representative levels of hCG. If is still suspected, a first morning urinespecimen should be collected 48 hours later and tested. Urine sediment bacteria coun t by microscopy (number/high power field)Ordered By: Ankit Saravia on 02-20-2025 Bacteria LM.HPF (Urine sed) [#/Area] 0 /[HPF] None Seen [facility] Urine specific gravity measu rementOrdered By: Ankit Saravia on 02-20-2025 Specific gravity (U) [Rel density] 1.010 1.002-1.030 [facility] Urine urobilinogen measureme ntOrdered By: Ankit Saravia on 02-20-2025 Urobilinogen Ql (U) Normal mg/dl Normal [facility] White blood cell (WBC) count Ordered By: Ankit Saravia on 02-20-2025 WBC (Bld) [#/Vol] 13.1 10*3/uL High 4.4-11.0 [facility] White blood cell countOrdere d By: Ankit Saravia on 02-20-2025 White blood cell count 0-5 SEEN /hpf 0-5 [facility] HISTORY PHYSICALon HISTORY PHYSICAL HNO ID: [id number] Author: JANEL GARCIA APRN.KIMO Service: ? Author Type: Nurse Practitioner Type: H&P Filed: 02/17/2025 11:55 Note Text: [facility] HISTORY AND PHYSICAL EXAMINATION SERVICE DATE: 02/17/2025 SERVICE TIME: 11:54 AM PRIMARY CARE PHYSICIAN: Myranda Dallas APRN.ANNUAL GREENHOUSE MANAGER Assessment Patient has the following medical conditions [...] physical activity. STOP-Bang Score: STOP-Bang Score: 0 [id number] Score: Diabetes history: Yes [id number] Score: ARISCAT Score: Age: <=50 Preoperative SpO2: [...] uses ibuprofen and Tylenol with an occasional [place] for relief. She was referred to oncology [...] and vomiti (more content not included)... Normal [facility] NURSING PROGon 02-16-2025 NURSING PROG HNO ID: [id number] Author: ?, ?, ? Service: ? Author Type: ? Type: Nursing Progress Note Filed: 02/16/2025 15:58 Note Text: Sean from blood bank called regarding patient type and screen per lab Conf. ABO will need to be done day of surgery on 02/25/25. Normal [facility] CBC panel Auto (Bld)on 02-04 Erythrocyte distribution width (RBC) [Ratio] 11.9 % Normal 11.5-15.0 [facility] Comment on above: Order Comment: Speci men Type: BLOOD SPECIMEN Ordering Facility: [facility] Address: [address] [place] [address] Performed By: #### 5 8410-2 #### [facility] CLIA [id number] [address] OF [facility] Hematocrit (Bld) [Volume fraction] 41.2 % Normal 36.0-46.0 [facility] Comment on above: Order Comment: Speci men Type: BLOOD SPECIMEN Ordering Facility: [facility] Address: [address] [place] [address] Performed By: #### 5 8410-2 #### [facility] CLIA [id number] [address] OF [facility] Hemoglobin (Bld) [Mass/Vol] 13.3 g/dL Normal 11.5-15.5 [facility] Comment on above: Order Comment: Speci men Type: BLOOD SPECIMEN Ordering Facility: [facility] Address: [address] [place] [address] Performed By: #### 5 8410-2 #### [facility] CLIA [id number] [address] STATES OF [facility] MCH (RBC) [Entitic mass] 31.5 pg Normal 26.0-34.0 [facility] Comment on above: Order Comment: Speci men Type: BLOOD SPECIMEN Ordering Facility: [facility] Address: [address] [place] [address] Performed By: #### 5 8410-2 #### [facility] CLIA [id number] [address] STATES [place] MCHC (RBC) [Mass/Vol] 32.3 g/dL Normal 30.5-36.0 [facility] Comment on above: Order Comment: Speci men Type: BLOOD SPECIMEN Ordering Facility: [facility] Address: [address] [place] [address] Performed By: #### 5 8410-2 #### [facility] CLIA [id number] [address] MCV (RBC) [Entitic vol] 97.6 fL Normal 80.0-100.0 [facility] Comment on above: Order Comment: Speci men Type: BLOOD SPECIMEN Ordering Facility: [facility] Address: [address] [place] [address] Performed By: #### 5 8410-2 #### [facility] CLIA [id number] [address] [place] Nucleated RBC (Bld) [#/Vol] 10*3/uL Normal <0.01 [facility] Comment on above: Order Comment: Speci men Type: BLOOD SPECIMEN Ordering Facility: [facility] Address: [address] [place] [address] Performed By: #### 5 8410-2 #### [facility] CLIA [id number] [address] Platelet mean volume (Bld) [Entitic vol] 10.5 fL Normal 9.0-12.7 [facility] Comment on above: Order Comment: Speci men Type: BLOOD SPECIMEN Ordering Facility: [facility] Address: [address] [place] [address] Performed By: #### 5 8410-2 #### [facility] CLIA [id number] [address] OF [place] Platelets (Bld) [#/Vol] 276 10*3/uL Normal 150-400 [facility] Comment on above: Order Comment: Speci men Type: BLOOD SPECIMEN Ordering Facility: [facility] Address: [address] [place] [address] Performed By: #### 5 8410-2 #### [facility] CLIA [id number] [address] [place] RBC (Bld) [#/Vol] 4.22 10*6/uL Normal 3.90-5.20 [facility] Comment on above: Order Comment: Speci men Type: BLOOD SPECIMEN Ordering Facility: [facility] Address: [address] [place] [address] Performed By: #### 5 8410-2 #### [facility] CLIA [id number] [address] STATES OF [facility] WBC (Bld) [#/Vol] 11.16 10*3/uL High 3.70-11.00 [facility] Comment on above: Order Comment: Speci men Type: BLOOD SPECIMEN Ordering Facility: [facility] Address: [address] [place] [address] Performed By: #### 5 8410-2 #### [facility] CLIA [id number] [address] OF [facility] CEA SerPl-mCncon 02-04-2025 Carcinoembryonic Ag [Mass/Vol] 2.2 ng/mL Normal <3.0 [facility] Comment on above: Order Comment: Speci men Type: FLUID SPECIMEN Ordering Facility: [facility] Address: [address] [place] [address] Result Comment: This is a [employer] assay using chemiluminescence test methodology. Results determined by different manufacturers may not be comparable Performed By: #### L [id number] #### [facility] CLIA [id number] [address] [place] [address] [place] Cancer Ag125 SerPl-aCncon Cancer Ag 125 Qn 21 [arb'U]/mL Normal <39 [facility] Comment on above: Order Comment: Speci men Type: BLOOD SPECIMEN Ordering Facility: [facility] Address: [address] [place] [address] Result Comment: CA 1 25 test methodology [...] (CA 125 II) [package insert V 1.0 Ecuadorean]. [employer], [place], [place] (June 2015) Performed By: #### 1 0334-1, 56053-5 #### [facility] CLIA [id number] [address] OF [place] Cancer Ag19-9 SerPl-aCncon 0 02-04-2025 Cancer Ag 19-9 Qn 63.5 [arb'U]/mL High <36.0 [facility] Comment on above: Order Comment: Speci men Type: BLOOD SPECIMEN Ordering Facility: [facility] Address: [address] [place] [address] Result Comment: [facility] er antigen 19-9 test is used as an aid in monitoring response to treatment or recurrence in patients with established pancreatic, hepatobiliary, or gastrointestinal malignancies. Clinical correlation is required. The CA 19-9 test methodology used is the Electrochemiluminescence Immunoassay by [employer]. Results obtained with different methods or kits cannot be used interchangeably. Performed By: #### 2 4108-3, 2039-01 #### [facility] CLIA [id number] [address] OF [place] HIGH RISK HUMAN PAPILLOMA LEONIDAS (HPV), PCR FOR DETECTION AND GENOTYPINGon 02-04-2025 HPV 16 Ag Ql (Unsp spec) Not detected Normal Not detected [facility] Comment on above: Order Comment: Speci men Type: FLUID SPECIMEN Ordering Facility: [facility] Address: [address] [place] [address] Performed By: #### H PVHRT #### [facility] CLIA [id number] [address] [place] [address] [place] HPV 18 Ag Ql (Unsp spec) Not detected Normal Not detected [facility] Comment on above: Order Comment: Speci men Type: FLUID SPECIMEN Ordering Facility: [facility] Address: [address] [place] [address] Performed By: #### H PVHRT #### [facility] CLIA [id number] [address] [place] [address] [place] HPV 31+33+35+39+45+51+52+ 56+58+59+66+68 DNA MALIK+probe Ql (Cvx) Not detected Normal Not detected [facility] Comment on above: Order Comment: Speci men Type: FLUID SPECIMEN Ordering Facility: [facility] Address: [address] [place] [address] Result Comment: High Risk HPV Other Type includes HPV types 31, 33, 35, 39, 45, 51, 52, 56, 58, 59, 66 and 68. Performed By: #### H PVHRT #### [facility] CLIA [id number] [address] [place] [address] [place] PAP TESTon 02-04-2025 ADEQUACY Normal [facility] Comment on above: Order Comment: Speci men Type: FLUID SPECIMEN Ordering Facility: [facility] Address: [address] [place] [address] Result Comment: Rachelle sfactory for interpretation. Transformation zone present Performed By: #### L [id number] #### [facility] CLIA [id number] [address] STATES [place] CASE REPORT Normal [facility] Comment on above: Order Comment: Speci men Type: FLUID SPECIMEN Ordering Facility: [facility] Address: [address] [place] [address] Result Comment: Gyne cologic Cytology Report Case: [id number] Authorizing Provider: Aaron Blount MD Collected: 02/04/2025 03:23 PM Ordering Location: [facility] Gynecology Oncology Received: 02/07/2025 04:32 AM First Screen: Radha Forbes, CT, ASCP Specimen: Pap Test, ThinPrep, Cervix Performed By: #### L [id number] #### [facility] CLIA [id number] [address] [place] CLINICAL HISTORY, CYTOLOGY, NUT THREADER Other (Specify) Normal [facility] Comment on above: Order Comment: Speci men Type: FLUID SPECIMEN Ordering Facility: [facility] Address: [address] [place] [address] Performed By: #### L [id number] #### [facility] CLIA [id number] [address] [place] [address] FINAL PERFORMING LAB Normal [facility] Comment on above: Order Comment: Speci men Type: FLUID SPECIMEN Ordering Facility: [facility] Address: [address] [place] [address] Result Comment: Tech nical component, printing machine operator screening performed at: [facility], [address] [place] [address] CLIA: [id number] Diagnostic interpretation performed at: [facility], [address] [place] [address] CLIA# [id number] Executive Recruiter: Jostin Barr MD Performed By: #### L [id number] #### [facility] CLIA [id number] [address] [place] [address] INTERPRETATION, CYTOLOGY, NUT THREADER Normal [facility] Comment on above: Order Comment: Speci men Type: FLUID SPECIMEN Ordering Facility: [facility] Address: [address] [place] [address] Result Comment: Nega tive for intraepithelial lesion or malignancy. at 1027 EDT Performed By: #### L [id number] #### [facility] CLIA [id number] [address] [place] [address] PAP DISCLAIMER COMMENT The Pap Smear is a screening test for cervical cancer. False negative results occur with all screening tests, emphasizing the need for rescreening at recommended intervals, and clinical correlation. Normal [facility] Comment on above: Order Comment: Speci men Type: FLUID SPECIMEN Ordering Facility: [facility] Address: [address] [place] [address] Performed By: #### L [id number] #### [facility] CLIA [id number] [address] [place] [address] PAP CRUSHER AND BINDER OPERATOR COMMENT This specimen has be en analyzed by the FDA-approved [employer] System, which uses digital imaging and an enhanced artificial intelligence image analysis algorithm to identify roberson of interest on the microscopic slide, to assist the balance bridge assembler and pathologist in evaluating cells on ThinPrep Pap tests. Following analysis, roberson of interest on the microscopic slide selected by the algorithm are reviewed by a balance bridge assembler. If a sample requires hierarchical review, the pathologist will review the same roberson of interest selected by the algorithm prior to final interpretation. Normal [facility] Comment on above: Order Comment: Speci men Type: FLUID SPECIMEN Ordering Facility: [facility] Address: [address] [place] [address] Performed By: #### L [id number] #### [facility] CLIA [id number] [address] [place] [address] [place] Renal function 2000 panelon 02-04-2025 Albumin [Mass/Vol] 4.3 g/dL Normal 3.9-4.9 [facility] Comment on above: Order Comment: Speci men Type: BLOOD SPECIMEN Ordering Facility: [facility] Address: [address] [place] [address] Performed By: #### 1 0334-1, 61976-3 #### [facility] CLIA [id number] [address] [place] [address] [place] Anion gap [Moles/Vol] 10 mmol/L Normal 8-15 [facility] Comment on above: Order Comment: Speci men Type: BLOOD SPECIMEN Ordering Facility: [facility] Address: [address] [place] [address] Performed By: #### 1 0334-1, 45842-1 #### [facility] CLIA [id number] [address] [place] [address] [place] Calcium [Mass/Vol] 9.8 mg/dL Normal 8.5-10.2 [facility] Comment on above: Order Comment: Speci men Type: BLOOD SPECIMEN Ordering Facility: [facility] Address: [address] [place] [address] Performed By: #### 1 0334-1, 96564-8 #### [facility] CLIA [id number] [address] Chloride [Moles/Vol] 102 mmol/L Normal 98-107 [facility] Comment on above: Order Comment: Mary cabrera Type: BLOOD SPECIMEN Ordering Facility: [facility] Address: [address] [place] [address] Performed By: #### 1 0334-1, 22194-1 #### [facility] CLIA [id number] [address] [place] CO2 [Moles/Vol] 29 mmol/L Normal 22-30 [facility] Comment on above: Order Comment: Mary men Type: BLOOD SPECIMEN Ordering Facility: [facility] Address: [address] [place] [address] Performed By: #### 1 0334-1, 32981-1 #### [facility] CLIA [id number] [address] [place] [address] Creatinine [Mass/Vol] 0.90 mg/dL Normal 0.58-0.96 [facility] Comment on above: Order Comment: Mary men Type: BLOOD SPECIMEN Ordering Facility: [facility] Address: [address] [place] [address] Performed By: #### 1 0334-1, 85209-7 #### [facility] CLIA [id number] [address] [place] [address] Creatinine and Glomerular filtration rate.predicted panel (S/P/Bld) 81 mL/min/1.73m??? Normal >=60 [facility] Comment on above: Order Comment: Mary men Type: BLOOD SPECIMEN Ordering Facility: [facility] Address: [address] [place] [address] Result Comment: Gilda mated Glomerular Filtration Rate [...] actual GFR. Performed By: #### 1 0334-1, 15717-2 #### [facility] CLIA [id number] [address] [place] [address] [place] Glucose [Mass/Vol] 133 mg/dL High 74-99 [facility] Comment on above: Order Comment: Mary cabrera Type: BLOOD SPECIMEN Ordering Facility: [facility] Address: [address] [place] [address] Result Comment: The [place] [employer] (ADA) provides guidance for cutoff [...] Standards of Medical Care in Diabetes 2016, [place] [employer]. Diabetes Care. 2016.39(Suppl 1). Performed By: #### 1 0334-1, 47073-4 #### [facility] CLIA [id number] [address] [place] [address] [place] Phosphate [Mass/Vol] 3.4 mg/dL Normal 2.7-4.8 [facility] Comment on above: Order Comment: Mary cabrera Type: BLOOD SPECIMEN Ordering Facility: [facility] Address: [address] [place] [address] Performed By: #### 1 0334-1, 12665-0 #### [facility] CLIA [id number] [address] [place] [address] [place] Potassium [Moles/Vol] 3.7 mmol/L Normal 3.7-5.1 [facility] Comment on above: Order Comment: Mary cabrera Type: BLOOD SPECIMEN Ordering Facility: [facility] Address: [address] [place] [address] Performed By: #### 1 0334-1, 14377-5 #### [facility] CLIA [id number] [address] Sodium [Moles/Vol] 141 mmol/L Normal 136-144 [facility] Comment on above: Order Comment: Speci men Type: BLOOD SPECIMEN Ordering Facility: [facility] Address: [address] [place] [address] Performed By: #### 1 0334-1, 70630-4 #### [facility] CLIA [id number] [address] [place] Urea nitrogen [Mass/Vol] 16 mg/dL Normal 7-21 [facility] Comment on above: Order Comment: Speci men Type: BLOOD SPECIMEN Ordering Facility: [facility] Address: [address] [place] [address] Performed By: #### 1 0334-1, 49241-3 #### [facility] CLIA [id number] [address] TYPE AND SCREEN,30 DAYon ABO A Normal [facility] Comment on above: Order Comment: Speci men Type: BLOOD SPECIMEN Ordering Facility: [facility] Address: [address] [place] [address] Performed By: #### T SCR30 #### [facility] CLIA [id number] [address] [place] Rh Nom (Bld) Positive Normal [facility] Comment on above: Order Comment: Speci men Type: BLOOD SPECIMEN Ordering Facility: [facility] Address: [address] [place] [address] Performed By: #### T SCR30 #### [facility] CLIA [id number] 1 [place] [address] [place] Absolute lymphocyte countOrd ered By: Mariel Espana on 01-30-2025 Lymphocytes Auto (Unsp spec) [#/Vol] 3.94 10*3/uL 0.83-4.51 [facility] Absolute neutrophil countOrd ered By: Mariel Espana on 01-30-2025 Neutrophils (Bld) [#/Vol] 5.6 10*3/uL 2.0-7.7 [facility] Amorphous sediment detection in urine sediment by light microscopyOrdered By: Mariel Espana on 01-30-2025 Amorphous sediment LM Ql (Urine sed) 1+ [facility] Anion gap in Serum or Plasma Ordered By: Mariel Espana on 01-30-2025 Anion gap [Moles/Vol] 13 mmol/L 5-15 [facility] Automated lymphocyte count a s percentage of total leukocytesOrdered By: Mariel Espana on 01-30-2025 Lymphocytes/100 WBC Auto (Unsp spec) 36.8 % - [facility] BUN/creatinine ratioOrdered By: Mariel Espana on 01-30-2025 Urea nitrogen/Creatinine [Mass ratio] 14.8 mg/mg - [facility] Basic Metabolic Profile (BMP )on 01-30-2025 BUN/CRE 14.8 RATIO Normal - [facility] Comment on above: Performed By: #### L 100.0500, BTSPAT, L501.5200, L500.4050 #### [facility] [address] [place], [address] Calcium [Mass/Vol] 9.8 mg/dL Normal 7.6-11.0 [facility] Comment on above: Performed By: #### L 100.0500, BTSPAT, L501.5200, L500.4050 #### [facility] [address] [place], [address] Chloride [Moles/Vol] 104 mmol/L Normal 98-108 [facility] Comment on above: Performed By: #### L 100.0500, BTSPAT, L501.5200, L500.4050 #### [facility] [address] [place], [address] CO2 [Moles/Vol] 22.3 mmol/L Normal 21.0-32.0 [facility] Comment on above: Performed By: #### L 100.0500, BTSPAT, L501.5200, L500.4050 #### [facility] [address] [place], [address] Creatinine [Mass/Vol] 0.97 mg/dL Normal 0.70-1.20 [facility] Comment on above: Performed By: #### L 100.0500, BTSPAT, L501.5200, L500.4050 #### [facility] [address] [place], [address] ECRCL 76.25 ml/min Normal 50-250 [facility] Comment on above: Performed By: #### L 100.0500, BTSPAT, L501.5200, L500.4050 #### [facility] [address] [place], [address] GAP 13 Normal 5-15 [facility] Comment on above: Performed By: #### L 100.0500, BTSPAT, L501.5200, L500.4050 #### [facility] [address] [place], [address] GFR/1.73 sq M.predicted among non-blacks MDRD (S/P/Bld) [Vol rate/Area] 74 mL/min/{1.73_m2} Normal >60 [facility] Comment on above: Result Comment: mL/m in/1.73m2 CKD-EPI Creatinine Equation (2020) Performed By: #### L 100.0500, BTSPAT, L501.5200, L500.4050 #### [facility] [address] [place], [address] Glucose [Mass/Vol] 201 mg/dL High 70-99 [facility] Comment on above: Performed By: #### L 100.0500, BTSPAT, L501.5200, L500.4050 #### [facility] [address] [place], [address] Potassium [Moles/Vol] 4.0 mmol/L Normal 3.3-5.1 [facility] Comment on above: Performed By: #### L 100.0500, BTSPAT, L501.5200, L500.4050 #### [facility] [address] [place], [address] Sodium [Moles/Vol] 139 mmol/L Normal 133-145 [facility] Comment on above: Performed By: #### L 100.0500, BTSPAT, L501.5200, L500.4050 #### [facility] [address] [place], [address] Urea nitrogen [Mass/Vol] 14 mg/dL Normal 4-19 [facility] Comment on above: Performed By: #### L 100.0500, BTSPAT, L501.5200, L500.4050 #### [facility] [address] [place], [address] Basophil percentageOrdered B y: Mariel Espana on 01-30-2025 Basophils/100 WBC (Bld) 0.8 % 0-1 [facility] Bilirubin Test strip Ql (U)O rdered By: Mariel Espana on 01-30-2025 Bilirubin Ql (U) Negative Negative [facility] CBC W/Diff, Automatedon 06-0 Absolute Lymph 3.94 X10 3/uL Normal 0.83-4.51 [facility] Comment on above: Performed By: #### L 700.6800, L100.0100, L500.2500 #### [facility] [address] [place], [address] Absolute Neut 5.6 X10 3/uL Normal 2.0-7.7 [facility] Comment on above: Performed By: #### L 700.6800, L100.0100, L500.2500 #### [facility] [address] [place], [address] Basophils/100 WBC (Bld) 0.8 % Normal 0-1 [facility] Comment on above: Performed By: #### L 700.6800, L100.0100, L500.2500 #### [facility] [address] [place], [address] Eosinophils/100 WBC (Bld) 3.0 % Normal 0-5 [facility] Comment on above: Performed By: #### L 700.6800, L100.0100, L500.2500 #### [facility] [address] [place], [address] Erythrocyte distribution width (RBC) [Ratio] 11.9 % Normal 11.6-14.6 [facility] Comment on above: Performed By: #### L 700.6800, L100.0100, L500.2500 #### [facility] [address] [place], [address] Hematocrit (Bld) [Volume fraction] 40.4 % Normal 37-47 [facility] Comment on above: Performed By: #### L 700.6800, L100.0100, L500.2500 #### [facility] [address] [place], [address] Hemoglobin (Bld) [Mass/Vol] 13.5 g/dL Normal 12.0-15.0 [facility] Comment on above: Performed By: #### L 700.6800, L100.0100, L500.2500 #### [facility] [address] [place], [address] IG% 0.200 Normal 0.0-0.9 [facility] Comment on above: Result Comment: IG% - Immature Granulocytes (promyelocytes, myelocytes and metamyelocytes) > 1% indicates that a LEFT SHIFT is Present. Performed By: #### L 700.6800, L100.0100, L500.2500 #### [facility] [address] [place], [address] Lymphocytes/100 WBC (Bld) 36.8 % Normal 19-41 [facility] Comment on above: Performed By: #### L 700.6800, L100.0100, L500.2500 #### [facility] [address] [place], [address] MCH (RBC) [Entitic mass] 31.5 pg Normal 27.0-32.0 [facility] Comment on above: Performed By: #### L 700.6800, L100.0100, L500.2500 #### [facility] [address] [place], [address] MCHC (RBC) [Mass/Vol] 33.4 g/dL Normal 32-36 [facility] Comment on above: Performed By: #### L 700.6800, L100.0100, L500.2500 #### [facility] [address] [place], [address] MCV (RBC) [Entitic vol] 94.4 fL Normal 81-99 [facility] Comment on above: Performed By: #### L 700.6800, L100.0100, L500.2500 #### [facility] [address] [place], [address] Monocytes/100 WBC (Bld) 6.4 % Normal 0-10 [facility] Comment on above: Performed By: #### L 700.6800, L100.0100, L500.2500 #### [facility] [address] [place], [address] Neutrophils/100 WBC (Bld) 52.8 % Normal 47-70 [facility] Comment on above: Performed By: #### L 700.6800, L100.0100, L500.2500 #### [facility] [address] [place], [address] Nucleated RBC (Bld) [#/Vol] 0 10*3/uL Normal 0-5 [facility] Comment on above: Performed By: #### L 700.6800, L100.0100, L500.2500 #### [facility] [address] [place], [address] Platelet mean volume (Bld) [Entitic vol] 10.6 fL Normal 6.2-12.0 [facility] Comment on above: Performed By: #### L 700.6800, L100.0100, L500.2500 #### [facility] [address] [place], [address] Platelets (Bld) [#/Vol] 289 10*3/uL Normal 150-450 [facility] Comment on above: Performed By: #### L 700.6800, L100.0100, L500.2500 #### [facility] [address] [place], [address] RBC (Bld) [#/Vol] 4.28 10*6/uL Normal 4.2-5.4 [facility] Comment on above: Performed By: #### L 700.6800, L100.0100, L500.2500 #### [facility] [address] [place], [address] RDW SD 41.0 fl Normal 35.1-43.9 [facility] Comment on above: Performed By: #### L 700.6800, L100.0100, L500.2500 #### [facility] [address] [place], [address] WBC (Bld) [#/Vol] 10.7 10*3/uL Normal 4.4-11.0 [facility] Comment on above: Performed By: #### L 700.6800, L100.0100, L500.2500 #### [facility] [address] [place], [address] Carbon dioxide, total [Moles /volume] in Central venous bloodOrdered By: Mariel Espana on 01-30-2025 CO2 [Moles/Vol] 22.3 mmol/L 21.0-32.0 [facility] Chloride assayOrdered By: Heidi Espana on 01-30-2025 Chloride [Moles/Vol] 104 mmol/L 98-108 [facility] Emergency Department Summary on 01-30-2025 Emergency Department Summary [facility] Medical Records Department [address] [place] [address] Emergency Department Summary 01/30/25 MR#: [id number] Acct: [id number] Name: ANA HERNANDEZ Rep #: [id number] : 1980 45 From: Mariel LADD PCP: Myranda Dallas, SAFETY COMPANION Status:DEP ER Location: ED HPI History of Present Illness Chief Complaint: Abd Pain Narrative Narrative: 45-year-old female developed right lower quadrant pain 3 weeks ago. She was seen in [place] ED on 01/[address] scan and transvaginal ultrasound showing a right ovarian mass of unknown etiology but could be neoplastic. She was prescribed [place] and finished it. She has Percocet from pain management for chronic back issues which she normally only takes 1-2 times a week but she has been taking it every 6 hours. She accidentally rolled out of bed 3 days ago and this worsened her right lower quadrant pain. She feels a lot of pressure and pain with walking. She has an appointment with [facility] oncology next week. She denies fever or chills. No nausea or vomiting. No bladder or bowel symptoms. She has a history of cholecystectomy and x 1. She states they tried to do a laparoscopy and hysterectomy but were unable to due to scar tissue. [facility] Medical History Injury of back Wears [...] 500 mg (15.6154 mL) PO Q4H PRN ME N 11/16/18 Unknown Rx solution Headache/Temp>99F ibuprofen [...] never substance use type: does not use dillon/zoroastrian: None seatbelt use: always ROS ROS ED [...] or cindy (more content not included)... Normal [facility] Eosinophil percentageOrdered By: Mariel Espana on 01-30-2025 Eosinophils/100 WBC (Bld) 3.0 % 0-5 [facility] Erythrocyte distribution wid th ratioOrdered By: Mariel Espana on 01-30-2025 Erythrocyte distribution width (RBC) [Ratio] 11.9 % 11.6-14.6 [facility] Erythrocyte distribution wid th standard deviationOrdered By: Mariel Espana on 01-30-2025 Erythrocyte distribution width (RBC) [Ratio] 41.0 fl 35.1-43.9 [facility] Glomerular filtration rate ( GFR) estimation/1.73 sq m using serum, plasma, or whole bOrdered By: Mariel Espana on 01-30-2025 GFR/1.73 sq M.predicted among non-blacks MDRD (S/P/Bld) [Vol rate/Area] 74 mL/min/{1.73_m2} >60 [facility] Comment on above: mL/min/1.73m2 CKD-EP I Creatinine Equation (2020) Hematocrit Auto (Bld) [Volum e fraction]Ordered By: Mariel Espana on 01-30-2025 Hematocrit (Bld) [Volume fraction] 40.4 % 37-47 [facility] Hemoglobin measurementOrdere d By: Mariel Espana on 01-30-2025 Hemoglobin (Bld) [Mass/Vol] 13.5 g/dL 12.0-15.0 [facility] Immature granulocytes/100 WB C Auto (Bld)Ordered By: Mariel Espana on 01-30-2025 Immature granulocytes/100 WBC (Bld) 0.200 % 0.0-0.9 [facility] Comment on above: IG% - Immature Granu locytes (promyelocytes, myelocytes and metamyelocytes) > 1% indicates that a LEFT SHIFT is Present. Ketones Test strip Ql (U)Ord ered By: Mariel Espana on 01-30-2025 Ketones Ql (U) Negative Negative [facility] MCV (mean corpuscular volume ) determinationOrdered By: Mariel Espana on 01-30-2025 MCV (RBC) [Entitic vol] 94.4 fL 81-99 [facility] Mean corpuscular hemoglobin (MCH) determinationOrdered By: Mariel Espana on 01-30-2025 MCH (RBC) [Entitic mass] 31.5 pg 27.0-32.0 [facility] Mean corpuscular hemoglobin concentration (MCHC) determinationOrdered By: Mariel Espana on 01-30-2025 MCHC (RBC) [Mass/Vol] 33.4 g/dL 32-36 [facility] Mean platelet volume determi nationOrdered By: Mariel Espana on 01-30-2025 Platelet mean volume (Bld) [Entitic vol] 10.6 fL 6.2-12.0 [facility] Microscopic analysis of urin e for red blood cells (RBC)Ordered By: Mariel Espana on 01-30-2025 Microscopic analysis of urine for red blood cells (RBC) 0 SEEN /hpf 0-5 [facility] Monocyte percentageOrdered B y: Mariel Guardadokiel on 01-30-2025 Monocytes/100 WBC (Bld) 6.4 % 0-10 [facility] Mucus LM Ql (Urine sed)Order ed By: Marielshravan Espana on 01-30-2025 Mucus Ql (Urine sed) 0 SEEN /hpf [facility] Neutrophil percentageOrdered By: Mariel Espana on 01-30-2025 Neutrophils/100 WBC (Bld) 52.8 % 47-70 [facility] Nitrite Test strip Ql (U)Ord ered By: Mariel Espana on 01-30-2025 Nitrite Ql (U) Negative Negative [facility] Nucleated red blood cell per centageOrdered By: Mariel Espana on 01-30-2025 Nucleated RBC/100 WBC (Bld) [Ratio] 0 % 0-5 [facility] Pelvic w/ Transvaginalon Pelvic w/ Transvaginal [facility] [address] [place], [place] [address] Pelvic w/ Transvaginal MR#: [id number] Acct: [id number] Name: ANA HERNANDEZ Rep #: [id number] : 1980 F 45 From: Mirza Dick MD PCP: Myranda Dallas, SAFETY COMPANION Status: REG ER Study: Pelvic w/ Transvaginal Date of Exam: 01/30/25 Exam# [id number] Ordering Dr: Mariel Espana PROCEDURE: PELVIC W/ [...] Needs referral to gynecological oncologists. Reading Location: [place] [address] CC: EVY Dallas; WILBERTO Baron Tape Coater: Signed Normal [facility] Platelet countOrdered By: Heidi Espana on 01-30-2025 Platelets (Bld) [#/Vol] 289 10*3/uL 150-450 [facility] Potassium measurement (mass/ volume)Ordered By: Mariel Espana on 01-30-2025 Potassium (Unsp spec) [Mass/Vol] 4.0 mmol/L 3.3-5.1 [facility] ,Serum,hCG Quali.on 01-30-2025 HCG, SERUM QUAL Negative Normal [facility] Comment on above: Performed By: #### L 100.0500, BTSPAT, L501.5200, L500.4050 #### [facility] [address] [place], [address] Protein Test strip Ql (U)Ord ered By: Mariel Espana on 01-30-2025 Protein Ql (U) TNP [facility] Comment on above: Test not performed RBC Auto (Bld) [#/Vol]Ordere d By: Mariel Espana on 01-30-2025 RBC (Bld) [#/Vol] 4.28 10*6/uL 4.2-5.4 [facility] Serum beta-hCG test, qualita tiveOrdered By: Mariel Espana on 01-30-2025 Beta HCG ( test) Ql Negative [facility] Serum creatinine measurement (mass/volume)Ordered By: Mariel Espana on 01-30-2025 Creatinine [Mass/Vol] 0.97 mg/dL 0.70-1.20 [facility] Serum glucose measurement (m ass/volume)Ordered By: Mariel Espana on 01-30-2025 Glucose [Mass/Vol] 201 mg/dL High 70-99 [facility] Serum or plasma calcium tevin urement (mass/volume)Ordered By: Mariel Espana on 01-30-2025 Calcium [Mass/Vol] 9.8 mg/dL 7.6-11.0 [facility] Serum or plasma urea nitroge n measurement (mass/volume)Ordered By: Mariel Espana on 01-30-2025 Urea nitrogen [Mass/Vol] 14 mg/dL 4-19 [facility] Sodium levelOrdered By: Mariel Espana on 01-30-2025 Sodium [Moles/Vol] 139 mmol/L 133-145 [facility] Squamous epithelial cells de tection in urine sediment by light microscopyOrdered By: Mariel Espana on 01-30-2025 Epithelial cells.squamous LM Ql (Urine sed) 0 SEEN /hpf 5-10 [facility] Urinalysis, Completeon 01-30 AMORPHOUS 1+ Normal [facility] Comment on above: Order Comment: CLEAN CATCH Performed By: #### L 100.0500, BTSPAT, L501.5200, L500.4050 #### [facility] [address] [place], [address] WBC 0-5 SEEN Normal 0-5 [facility] Comment on above: Order Comment: CLEAN CATCH Performed By: #### L 100.0500, BTSPAT, L501.5200, L500.4050 #### [facility] [address] [place], [address] BACTERIA 0 SEEN Normal None Seen [facility] Comment on above: Order Comment: CLEAN CATCH Performed By: #### L 100.0500, BTSPAT, L501.5200, L500.4050 #### [facility] [address] [place], [address] EPI,SQUAMOUS 0 SEEN Normal 5-10 [facility] Comment on above: Order Comment: CLEAN CATCH Performed By: #### L 100.0500, BTSPAT, L501.5200, L500.4050 #### [facility] [address] [place], [address] Mucus Ql (Urine sed) 0 SEEN Normal [facility] Comment on above: Order Comment: CLEAN CATCH Performed By: #### L 100.0500, BTSPAT, L501.5200, L500.4050 #### [facility] [address] [place], [address] RBC 0 SEEN Normal 0-5 [facility] Comment on above: Order Comment: CLEAN CATCH Performed By: #### L 100.0500, BTSPAT, L501.5200, L500.4050 #### [facility] [address] [place], [address] Urine clarityOrdered By: Katy Espana on 01-30-2025 Clarity (U) Clear Clear [facility] Urine color determinationOrd ered By: Mariel Espana on 01-30-2025 Color (U) Yellow Yellow [facility] Urine glucose detectionOrder ed By: Mariel Espana on 01-30-2025 Glucose Ql (U) 1000 mg/dl High Normal [facility] Urine leukocyte esterase det ection by dipstickOrdered By: Mariel Espana on 01-30-2025 Leukocyte esterase Test strip Ql (U) Negative Negative [facility] Urine pHOrdered By: Mariel dyson on 01-30-2025 pH (U) 7.0 [pH] 5.0 - 8.0 [facility] Urine sediment bacteria coun t by microscopy (number/high power field)Ordered By: Mariel Espana on 01-30-2025 Bacteria LM.HPF (Urine sed) [#/Area] 0 /[HPF] None Seen [facility] Urine specific gravity measu rementOrdered By: Mariel Espana on 01-30-2025 Specific gravity (U) [Rel density] 1.010 1.002-1.030 [facility] Urine urobilinogen measureme ntOrdered By: Mariel Espana on 01-30-2025 Urobilinogen Ql (U) Normal mg/dl Normal [facility] White blood cell (WBC) count Ordered By: Mariel Espana on 01-30-2025 WBC (Bld) [#/Vol] 10.7 10*3/uL 4.4-11.0 [facility] White blood cell countOrdere d By: Mariel Espana on 01-30-2025 White blood cell count 0-5 SEEN /hpf 0-5 [facility] CNOVon 01-18-2025 CNOV Office Visit (OBGYWM ) -------- DAVID,ANA ([id number]) 1980 F Date Time Provider Department 01/18/25 12:50 PM [facility] RIVERA OBBRUCE During your visit today, we recorded the following information about you: Blood pressure Weight 100/68 89.1 kg Myriam Rivera MD 01/18/2025 1:13 PM Signed Ana David is a 45 year old female who [...] hysterectomy on laparoscopy. She was referred to [facility]. 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 omega-3 fatty acids (FISH OIL CONCENTRATE) 1,000 mg cap Take 1,000 mg by mouth o (more content not included)... Normal [facility] 01-18-2025 FATUMA Telephone (MARISELGYWM) -------- ANA HERNANDEZ ([id number]) 1980 F Date Time Provider Department 01/18/25 ZHENG LUNA During your visit today, we recorded the following information about you: Edgar Mercado RN 01/18/2025 8:20 AM Signed E-mail sent to OB nursing staff by Dr. Luna 01/17/25 at 10:49pm: Patient of ours Ana WORTHINGTON 82 presented to the ER with flank pain. CT and pelvic US show ORADS 5 ovarian cyst. Needs follow up this week deborah and possible referral to sales representative cash registers onc. Thanks, Edgar Sherman RN 01/18/2025 8:20 AM Signed Appt scheduled with J today at 12:50pm. Edgar Mercado RN Allergies [...] Status:Closed by EDGAR MERCADO on 01/18/25 Normal [facility] Abdomen/Pelvis without Conto n 01-17-2025 Abdomen/Pelvis without Cont [facility] Imaging Services [address] [place], [place] [address] Abdomen/Pelvis without Cont MR#: [id number] Acct: [id number] Name: ANA HERNANDEZ Rep #: [id number] : 1980 F 45 From: Luis Carlos Back MD PCP: Myranda Dallas, SAFETY COMPANION Status: REG ER Study: Abdomen/Pelvis without Cont Date of Exam: 12/30 05/26 Exam# [id number] Ordering Dr: Jostin Stone DO PROCEDURE: ABDOMEN/PELVIS [...] the right kidney. No hydronephrosis. Reading Location: [id number] CC: [facility] Myranda Dallas; Dr. Jostin Stone, DO Tape Coater: Signed Normal [facility] Absolute lymphocyte countOrd ered By: Jostin Stone on 01-17-2025 Lymphocytes Auto (Unsp spec) [#/Vol] 5.18 10*3/uL High 0.83-4.51 [facility] Absolute neutrophil countOrd ered By: Jostin Stone on 01-17-2025 Neutrophils (Bld) [#/Vol] 6.8 10*3/uL 2.0-7.7 [facility] Anion gap in Serum or Plasma Ordered By: Jostin Stone on 01-17-2025 Anion gap [Moles/Vol] 15 mmol/L - [facility] Automated lymphocyte count a s percentage of total leukocytesOrdered By: Jostin Stone on 01-17-2025 Lymphocytes/100 WBC Auto (Unsp spec) 40.0 % [facility] BUN/creatinine ratioOrdered By: Jostin Stone on 01-17-2025 Urea nitrogen/Creatinine [Mass ratio] 16.3 mg/mg - [facility] Basic Metabolic Profile (BMP )on 01-17-2025 BUN/CRE 16.3 RATIO Normal - [facility] Comment on above: Performed By: #### L 500.2500, L700.6800, L100.0100 #### [facility] Laboratory [address] [place], [address] ECRCL 74.27 ml/min Normal 50-250 [facility] Comment on above: Performed By: #### L 500.2500, L700.6800, L100.0100 #### [facility] [address] [place], [address] GAP 15 Normal 5-15 [facility] Comment on above: Performed By: #### L 500.2500, L700.6800, L100.0100 #### [facility] [address] [place], [address] Potassium [Moles/Vol] 3.9 mmol/L Normal 3.3-5.1 [facility] Comment on above: Result Comment: Hemo lysis present, Results??could be affected. ?? Performed By: #### L 500.2500, L700.6800, L100.0100 #### [facility] [address] [place], [address] Basophil percentageOrdered B y: Jostin Stone on 01-17-2025 Basophils/100 WBC (Bld) 0.5 % 0-1 [facility] Bilirubin Test strip Ql (U)O rdered By: Jostin Stone on 01-17-2025 Bilirubin Ql (U) Negative Negative [facility] CBC W/Diff, Automatedon 12-30 PLT EST ADEQUATE Normal ADEQ [facility] Comment on above: Performed By: #### L 500.2500, L700.6800, L100.0100 #### [facility] [address] [place], [address] CNOVon 01-17-2025 CNOV Office Visit ([facility] ) -------- ANA HERNANDEZ ([id number]) 1980 F Date Time Provider Department 01/17/25 6:00 PM DAVID ALBA [facility] During your visit today, we recorded the following information about you: Temperature Pulse Respiration Blood pressure 97 degrees 78/minute 16/minute 160/84 Weight 88.6 kg David Alba APRN.ANNUAL GREENHOUSE MANAGER 01/17/2025 6:19 PM Signed Subjective HPI Nontoxic-appearing [...] status: curr (more content not included)... Normal [facility] Carbon dioxide, total [Moles /volume] in Central venous bloodOrdered By: Jostin Stone on 01-17-2025 CO2 [Moles/Vol] 18.8 mmol/L Low 21.0-32.0 [facility] Comment on above: Performed By: #### L 500.2500, L700.6800, L100.0100 #### [facility] [address] [facility] [address] Chloride assayOrdered By: Herman Stone on 01-17-2025 Chloride [Moles/Vol] 104 mmol/L 98-108 [facility] Comment on above: Performed By: #### L 500.2500, L700.6800, L100.0100 #### [facility] [address] [place], [address] Emergency Department Summary on 01-17-2025 Emergency Department Summary [facility] Medical Records Department [address] [place] [address] Emergency Department Summary 01/17/25 MR#: [id number] Acct: [id number] Name: ANA HERNANDEZ Rep #: [id number] : 1980 45 From: Jostin Stone DO PCP: Myranda Dallas, SAFETY COMPANION Status:DEP ER Location: ED HPI History of Present Illness Chief Complaint: Flank Pain Informant: patient Onset/Context/Timing Onset: Weeks (1-2) Context: Gradual Onset Timing: Waxes and wanes [...] chills. Patient denies any dysuria or hematuria. [facility] Medical History Injury of back Wears [...] 500 mg (15.6154 mL) PO Q4H PRN ME N 11/16/18 Unknown Rx solution Headache/Temp>99F ibuprofen [...] never substance use type: does not use dillon/zoroastrian: None seatbelt use: always ROS ROS ED [...] Denies ulisses (more content not included)... Normal [facility] Eosinophil percentageOrdered By: Jostin Stone on 01-17-2025 Eosinophils/100 WBC (Bld) 1.7 % 0-5 [facility] Erythrocyte distribution wid th ratioOrdered By: Jostin Stone on 01-17-2025 Erythrocyte distribution width (RBC) [Ratio] 12.4 % 11.6-14.6 [facility] Erythrocyte distribution wid th standard deviationOrdered By: Jostin Stone on 01-17-2025 Erythrocyte distribution width (RBC) [Ratio] 41.7 fl 35.1-43.9 [facility] Glomerular filtration rate ( GFR) estimation/1.73 sq m using serum, plasma, or whole bOrdered By: Jostin Stone on 01-17-2025 GFR/1.73 sq M.predicted among non-blacks MDRD (S/P/Bld) [Vol rate/Area] 71 mL/min/{1.73_m2} >60 [facility] Comment on above: mL/min/1.73m2 CKD-EP I Creatinine Equation (2020) Result Comment: mL/m in/1.73m2 CKD-EPI Creatinine Equation (2020) Performed By: #### L 500.2500, L700.6800, L100.0100 #### [facility] [address] [place] [address], [address] Hematocrit Auto (Bld) [Volum e fraction]Ordered By: Jostin Stone on 01-17-2025 Hematocrit (Bld) [Volume fraction] 41.8 % 37-47 [facility] Hemoglobin measurementOrdere d By: Jostin Stone on 01-17-2025 Hemoglobin (Bld) [Mass/Vol] 14.4 g/dL 12.0-15.0 [facility] Immature granulocytes/100 WB C Auto (Bld)Ordered By: Jostin Stone on 01-17-2025 Immature granulocytes/100 WBC (Bld) 0.200 % 0.0-0.9 [facility] Comment on above: IG% - Immature Granu locytes (promyelocytes, myelocytes and metamyelocytes) > 1% indicates that a LEFT SHIFT is Present. Ketones Test strip Ql (U)Ord ered By: Jostin Stone on 01-17-2025 Ketones Ql (U) 15 mg/dl High Negative [facility] MCV (mean corpuscular volume ) determinationOrdered By: Jostin Stone on 01-17-2025 MCV (RBC) [Entitic vol] 92.7 fL 81-99 [facility] Mean corpuscular hemoglobin (MCH) determinationOrdered By: Jostin Stone on 01-17-2025 MCH (RBC) [Entitic mass] 31.9 pg 27.0-32.0 [facility] Mean corpuscular hemoglobin concentration (MCHC) determinationOrdered By: Jostin Stone on 01-17-2025 MCHC (RBC) [Mass/Vol] 34.4 g/dL 32-36 [facility] Mean platelet volume determi nationOrdered By: Jostin Stone on 01-17-2025 Platelet mean volume (Bld) [Entitic vol] 12.1 fL High 6.2-12.0 [facility] Microscopic analysis of urin e for red blood cells (RBC)Ordered By: Jostin Stone on 01-17-2025 Microscopic analysis of urine for red blood cells (RBC) 0 SEEN /hpf 0-5 [facility] Monocyte percentageOrdered B y: Jostin Stone on 01-17-2025 Monocytes/100 WBC (Bld) 4.9 % 0-10 [facility] Mucus LM Ql (Urine sed)Order ed By: Jostin Stone on 01-17-2025 Mucus Ql (Urine sed) 0 SEEN /hpf [facility] Neutrophil percentageOrdered By: Jostin Stone on 01-17-2025 Neutrophils/100 WBC (Bld) 52.7 % 47-70 [facility] Nitrite Test strip Ql (U)Ord ered By: Jostin Stone on 01-17-2025 Nitrite Ql (U) Negative Negative [facility] Nucleated red blood cell per centageOrdered By: Jostin Stone on 01-17-2025 Nucleated RBC/100 WBC (Bld) [Ratio] 0 % 0-5 [facility] Platelet countOrdered By: Herman Stone on 01-17-2025 Platelets (Bld) [#/Vol] 260 10*3/uL 150-450 [facility] Platelet estimateOrdered By: Jostin Stone on 01-17-2025 Platelets LM Ql (Bld) ADEQUATE ADEQ [facility] Potassium measurement (mass/ volume)Ordered By: Jostin Stone on 01-17-2025 Potassium (Unsp spec) [Mass/Vol] 3.9 mmol/L 3.3-5.1 [facility] Comment on above: Hemolysis present, R esults could be affected. ,Serum,hCG Quali.on 01-17-2025 HCG, SERUM QUAL Negative Normal [facility] Comment on above: Performed By: #### L 500.2500, L700.6800, L100.0100 #### [facility] [address] [place], [place], [address] Protein Test strip Ql (U)Ord ered By: Jostin Stone on 01-17-2025 Protein Ql (U) 15 mg/dl High Negative [facility] RBC Auto (Bld) [#/Vol]Ordere d By: Jostin Stone on 01-17-2025 RBC (Bld) [#/Vol] 4.51 10*6/uL 4.2-5.4 [facility] Serum beta-hCG test, qualita tiveOrdered By: Jostin Stone on 01-17-2025 Beta HCG ( test) Ql Negative [facility] Serum creatinine measurement (mass/volume)Ordered By: Jostin Stone on 01-17-2025 Creatinine [Mass/Vol] 1.00 mg/dL 0.70-1.20 [facility] Comment on above: Performed By: #### L 500.2500, L700.6800, L100.0100 #### [facility] [address] [facility] [place], [place], [id number] Serum glucose measurement (m ass/volume)Ordered By: Jostin Stone on 01-17-2025 Glucose [Mass/Vol] 135 mg/dL High 70-99 [facility] Comment on above: Performed By: #### L 500.2500, L700.6800, L100.0100 #### [facility] [address] [place], [address] Serum or plasma calcium tevin urement (mass/volume)Ordered By: Jostin Stone on 01-17-2025 Calcium [Mass/Vol] 9.6 mg/dL 7.6-11.0 [facility] Comment on above: Performed By: #### L 500.2500, L700.6800, L100.0100 #### [facility] [address] [place], [address] Serum or plasma urea nitroge n measurement (mass/volume)Ordered By: Jostin Stone on 01-17-2025 Urea nitrogen [Mass/Vol] 16 mg/dL 12-18 [facility] Comment on above: Performed By: #### L 500.2500, L700.6800, L100.0100 #### [facility] [address] [place], [address] Sodium levelOrdered By: Jostin Stone on 01-17-2025 Sodium [Moles/Vol] 137 mmol/L 133-145 [facility] Comment on above: Performed By: #### L 500.2500, L700.6800, L100.0100 #### [facility] [address] [place], [address] Squamous epithelial cells de tection in urine sediment by light microscopyOrdered By: Jostin Stone on 01-17-2025 Epithelial cells.squamous LM Ql (Urine sed) 0-5 SEEN /hpf 5-10 [facility] Transitional cells detection in urine sediment by light microscopyOrdered By: Jostin Stone on 01-17-2025 Transitional cells LM Ql (Urine sed) 0-5 SEEN /hpf 0-5 [facility] Transvaginal Non-on 01-17-2025 Transvaginal Non- [facility] Imaging Services [address] [place] [address] Transvaginal Non- MR#: [id number] Acct: [id number] Name: ANA HERNANDEZ Rep #: [id number] : 1980 F 45 From: Luis Carlos Back MD PCP: Myranda Dallas, SAFETY COMPANION Status: REG ER Study: Transvaginal Non- Date of Exam: Exam# [id number] Ordering Dr: Jostin Stone DO PROCEDURE: TRANSVAGINAL [...] with O-RADS 5 classification (High Risk). 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 Yellow Alert: High Risk ovarian mass The critical information above was relayed directly by me by telephone to Jostin Stone on 01/17/2025 at 10:18 pm with readback verification. Reading Location: [id number] CC: EVY Dallas; Dr. Jostin Stone, DO Tape Coater: Signed Normal [facility] UA DIP, URINE (POC)on 2024 BILIRUBIN UA (POCT) Negative Negative [facility] CLARITY [facility] (POCT) [facility] Yellow [facility] GLUCOSE UA (POCT) >=1000 Abnormal Negative mg/dL [facility] Hemoglobin Ql (U) Negative Negative [facility] Interpretation and review of laboratory results Abnormal [facility] KETONE UA (POCT) Trace Negative mg/dL [facility] LEUKOCYTES UA (POCT) Negative Negative [facility] NITRITE UA (POCT) Negative [facility] PH UA (POCT) 6 4.5 - 8.0 [facility] Protein Ql (U) Negative Negative mg/dL [facility] SPECIFIC GRAVITY UA (POCT) 1.01 1.005 - 1.030 [facility] UROBILINOGEN UA (POCT) 0.2 Normal E.U./dL [facility] Location:[facility], [address] [place] [address], [place], [address] [facility] POINT OF CARE [facility] Urinalysis, Completeon 01-17 EPI,SQUAMOUS 0-5 SEEN Normal 5-10 [facility] Comment on above: Order Comment: DILIA CTOR TO SPECIFY Performed By: #### L 100.0500, BTSPAT, L501.5200, L500.4050 #### [facility] [address] [place], [place], [address] EPI,TRANSITION 0-5 SEEN Normal 0-5 [facility] Comment on above: Order Comment: DILIA CTOR TO SPECIFY Performed By: #### L 100.0500, BTSPAT, L501.5200, L500.4050 #### [facility] [address] [place], [address] WBC 0-5 SEEN Normal 0-5 [facility] Comment on above: Order Comment: DILIA CTOR TO SPECIFY Performed By: #### L 100.0500, BTSPAT, L501.5200, L500.4050 #### [facility] [address] [place], [address] BACTERIA 0 SEEN Normal None Seen [facility] Comment on above: Order Comment: COLLE CTOR TO SPECIFY Performed By: #### L 100.0500, BTSPAT, L501.5200, L500.4050 #### [facility] [address] [place], [address] Mucus Ql (Urine sed) 0 SEEN Normal [facility] Comment on above: Order Comment: COLLE CTOR TO SPECIFY Performed By: #### L 100.0500, BTSPAT, L501.5200, L500.4050 #### [facility] [address] [place], [address] RBC 0 SEEN Normal 0-5 [facility] Comment on above: Order Comment: COLLE CTOR TO SPECIFY Performed By: #### L 100.0500, BTSPAT, L501.5200, L500.4050 #### [facility] [address] [place], [address] Urine clarityOrdered By: Romina Stone on 01-17-2025 Clarity (U) Clear Clear [facility] Urine color determinationOrd ered By: Jostin Stone on 01-17-2025 Color (U) Straw Yellow [facility] Urine glucose detectionOrder ed By: Jostin Stone on 01-17-2025 Glucose Ql (U) 1000 mg/dl High Normal [facility] Urine leukocyte esterase det ection by dipstickOrdered By: Jostin Stone on 01-17-2025 Leukocyte esterase Test strip Ql (U) Negative Negative [facility] Urine pHOrdered By: Jostin cobos on 01-17-2025 pH (U) 7.0 [pH] 5.0 - 8.0 [facility] Urine sediment bacteria coun t by microscopy (number/high power field)Ordered By: Jostin Stone on 01-17-2025 Bacteria LM.HPF (Urine sed) [#/Area] 0 /[HPF] None Seen [facility] Urine specific gravity measu rementOrdered By: Jostin Stone on 01-17-2025 Specific gravity (U) [Rel density] 1.010 1.002-1.030 [facility] Urine urobilinogen measureme ntOrdered By: Jostin Stone on 01-17-2025 Urobilinogen Ql (U) Normal mg/dl Normal [facility] White blood cell (WBC) count Ordered By: Jostin Stone on 01-17-2025 WBC (Bld) [#/Vol] 13.0 10*3/uL High 4.4-11.0 [facility] White blood cell countOrdere d By: Jostin Stone on 01-17-2025 White blood cell count 0-5 SEEN /hpf 0-5 [facility] CNOVon 12-20-2024 CNOV Office Visit ([facility] ) -------- ANA HERNANDEZ ([id number]) 1980 F Date Time Provider Department 12/20/24 9:00 AM [facility] During your visit today, we recorded the following information about you: Temperature Pulse Blood pressure Weight 97 degrees 72/minute 128/70 89.8 kg Myranda Dallas, KENDALL.ANNUAL GREENHOUSE MANAGER 12/20/2024 9:40 AM Signed This is a [...] by mouth once daily. blood-glucose meter,mobile dev ([employer] BLOOD GLUCOSE MONITOR) lyn albuterol HFA (PROAIR [...] Problem Rela (more content not included)... Normal [facility] CBC W Auto Differential pane l (Bld)on 11-18-2024 Basophils (Bld) [#/Vol] 0.10 10*3/uL Normal <0.11 [facility] Comment on above: Order Comment: Speci men Type: BLOOD SPECIMEN Ordering Facility: [facility] Address: [address] [place] [address] Performed By: #### 5 7021-8 #### [facility] CLIA [id number] [address] [place] [address] [place] Basophils/100 WBC (Bld) 0.9 % Normal [facility] Comment on above: Order Comment: Speci men Type: BLOOD SPECIMEN Ordering Facility: [facility] Address: [address] [place] [address] Performed By: #### 5 7021-8 #### [facility] CLIA [id number] [address] [place] [address] [place] Differential cell count method Nom (Bld) Manual Normal [facility] Comment on above: Order Comment: Speci men Type: BLOOD SPECIMEN Ordering Facility: [facility] Address: [address] [place] [address] Performed By: #### 5 7021-8 #### [facility] CLIA [id number] [address] [place] [address] [place] Eosinophils (Bld) [#/Vol] 0.30 10*3/uL Normal <0.46 [facility] Comment on above: Order Comment: Speci men Type: BLOOD SPECIMEN Ordering Facility: [facility] Address: [address] [place] [address] Performed By: #### 5 7021-8 #### [facility] CLIA [id number] [address] [place] [address] [place] Eosinophils/100 WBC (Bld) 2.6 % Normal [facility] Comment on above: Order Comment: Speci men Type: BLOOD SPECIMEN Ordering Facility: [facility] Address: [address] [place] [address] Performed By: #### 5 7021-8 #### [facility] CLIA [id number] [address] [place] [address] [place] Erythrocyte distribution width (RBC) [Ratio] 12.7 % Normal 11.5-15.0 [facility] Comment on above: Order Comment: Speci men Type: BLOOD SPECIMEN Ordering Facility: [facility] Address: [address] [place] [address] Performed By: #### 5 7021-8 #### [facility] CLIA [id number] [address] [place] [address] [place] Hematocrit (Bld) [Volume fraction] 40.3 % Normal 36.0-46.0 [facility] Comment on above: Order Comment: Speci men Type: BLOOD SPECIMEN Ordering Facility: [facility] Address: [address] [place] [address] Performed By: #### 5 7021-8 #### [facility] CLIA [id number] [address] [place] [address] [place] Hemoglobin (Bld) [Mass/Vol] 13.1 g/dL Normal 11.5-15.5 [facility] Comment on above: Order Comment: Speci men Type: BLOOD SPECIMEN Ordering Facility: [facility] Address: [address] [place] [address] Performed By: #### 5 7021-8 #### [facility] CLIA [id number] [address] [place] [address] [place] Lymphocytes (Bld) [#/Vol] 3.64 10*3/uL Normal 1.00-4.00 [facility] Comment on above: Order Comment: Speci men Type: BLOOD SPECIMEN Ordering Facility: [facility] Address: [address] [place] [address] Performed By: #### 5 7021-8 #### [facility] CLIA [id number] [address] [place] [address] [place] Lymphocytes/100 WBC (Bld) 31.9 % Normal [facility] Comment on above: Order Comment: Speci men Type: BLOOD SPECIMEN Ordering Facility: [facility] Address: [address] [place] [address] Performed By: #### 5 7021-8 #### [facility] CLIA [id number] [address] [place] [address] [place] MCH (RBC) [Entitic mass] 30.8 pg Normal 26.0-34.0 [facility] Comment on above: Order Comment: Speci men Type: BLOOD SPECIMEN Ordering Facility: [facility] Address: [address] [place] [address] Performed By: #### 5 7021-8 #### [facility] [facility] CLIA [id number] [address] [place] [address] [place] MCHC (RBC) [Mass/Vol] 32.5 g/dL Normal 30.5-36.0 [facility] Comment on above: Order Comment: Speci men Type: BLOOD SPECIMEN Ordering Facility: [facility] Address: [address] [place] [address] Performed By: #### 5 7021-8 #### [facility] CLIA [id number] [address] [place] [address] [place] MCV (RBC) [Entitic vol] 94.8 fL Normal 80.0-100.0 [facility] Comment on above: Order Comment: Speci men Type: BLOOD SPECIMEN Ordering Facility: [facility] Address: [address] [place] [address] Performed By: #### 5 7021-8 #### [facility] CLIA [id number] [address] [place] [address] [place] Metamyelocytes/100 WBC (Bld) 0.9 % Normal [facility] Comment on above: Order Comment: Speci men Type: BLOOD SPECIMEN Ordering Facility: [facility] Address: [address] [place] [address] Performed By: #### 5 7021-8 #### [facility] CLIA [id number] [address] [place] [address] [place] Monocytes (Bld) [#/Vol] 0.19 10*3/uL Normal <0.87 [facility] Comment on above: Order Comment: Speci men Type: BLOOD SPECIMEN Ordering Facility: [facility] Address: [address] [place] [address] Performed By: #### 5 7021-8 #### [facility] CLIA [id number] [address] [place] [address] [place] Monocytes/100 WBC (Bld) 1.7 % Normal [facility] Comment on above: Order Comment: Speci men Type: BLOOD SPECIMEN Ordering Facility: [facility] Address: [address] [place] [address] Performed By: #### 5 7021-8 #### [facility] CLIA [id number] [address] [place] [address] [place] Neutrophils (Bld) [#/Vol] 7.07 10*3/uL Normal 1.45-7.50 [facility] Comment on above: Order Comment: Speci men Type: BLOOD SPECIMEN Ordering Facility: [facility] Address: [address] [place] [address] Performed By: #### 5 7021-8 #### [facility] CLIA [id number] [address] [place] [address] [place] Neutrophils/100 WBC (Bld) 62.0 % Normal [facility] Comment on above: Order Comment: Speci men Type: BLOOD SPECIMEN Ordering Facility: [facility] Address: [address] [place] [address] Performed By: #### 5 7021-8 #### [facility] CLIA [id number] [address] [place] [address] [place] Nucleated RBC (Bld) [#/Vol] 10*3/uL Normal <0.01 [facility] Comment on above: Order Comment: Speci men Type: BLOOD SPECIMEN Ordering Facility: [facility] Address: [address] [place] [address] Performed By: #### 5 7021-8 #### [facility] CLIA [id number] [address] [place] [address] [place] Nucleated RBC/100 WBC (Bld) [Ratio] 0.0 /100 WBC Normal [facility] Comment on above: Order Comment: Speci men Type: BLOOD SPECIMEN Ordering Facility: [facility] Address: [address] [place] [address] Performed By: #### 5 7021-8 #### [facility] CLIA [id number] [address] [place] [address] [place] Platelet mean volume (Bld) [Entitic vol] 10.6 fL Normal 9.0-12.7 [facility] Comment on above: Order Comment: Speci men Type: BLOOD SPECIMEN Ordering Facility: [facility] Address: [address] [place] [address] Performed By: #### 5 7021-8 #### [facility] CLIA [id number] [address] [place] [address] [place] Platelets (Bld) [#/Vol] 306 10*3/uL Normal 150-400 [facility] Comment on above: Order Comment: Speci men Type: BLOOD SPECIMEN Ordering Facility: [facility] Address: [address] [place] [address] Performed By: #### 5 7021-8 #### [facility] CLIA [id number] [address] [place] [address] [place] Platelets Estimate (Bld) [#/Vol] Adequate Normal [facility] Comment on above: Order Comment: Speci men Type: BLOOD SPECIMEN Ordering Facility: [facility] Address: [address] [place] [address] Performed By: #### 5 7021-8 #### [facility] CLIA [id number] [address] [place] [address] [place] Polychromasia LM Ql (Bld) Slight Normal [facility] Comment on above: Order Comment: Speci men Type: BLOOD SPECIMEN Ordering Facility: [facility] Address: [address] [place] [address] Performed By: #### 5 7021-8 #### [facility] CLIA [id number] [address] [place] [address] [place] RBC (Bld) [#/Vol] 4.25 10*6/uL Normal 3.90-5.20 [facility] Comment on above: Order Comment: Speci men Type: BLOOD SPECIMEN Ordering Facility: [facility] Address: [address] [place] [address] Performed By: #### 5 7021-8 #### [facility] CLIA [id number] [address] [place] [address] [place] RED CELL MORPH Reviewed: unremarkable Normal [facility] Comment on above: Order Comment: Speci men Type: BLOOD SPECIMEN Ordering Facility: [facility] Address: [address] [place] [address] Performed By: #### 5 7021-8 #### [facility] CLIA [id number] [address] [place] [address] [place] WBC (Bld) [#/Vol] 11.40 10*3/uL High 3.70-11.00 [facility] Comment on above: Order Comment: Speci men Type: BLOOD SPECIMEN Ordering Facility: [facility] Address: [address] [place] [address] Performed By: #### 5 7021-8 #### [facility] CLIA [id number] [address] [place] [address] [place] WBC Left Shift Ql (Bld) Present Normal [facility] Comment on above: Order Comment: Speci men Type: BLOOD SPECIMEN Ordering Facility: [facility] Address: [address] [place], [place] [address] Performed By: #### 5 7021-8 #### [facility] CLIA [id number] [address] [place] [address] [place] [address] [place] CNOVon 11-18-2024 CNOV Office Visit (FAMPWS ) -------- ANA HERNANDEZ ([id number]) 1980 F Date Time Provider Department 11/18/24 10:00 [facility] today, we recorded the following information about you: Temperature Pulse Blood pressure Weight 97.5 degrees 99/minute 136/72 90.3 kg Myranda Dallas APRN.ANNUAL GREEN[employer]SE MANAGER 11/18/2024 10:18 AM Signed This is a [...] dev (D (more content not included)... Normal [facility] Comprehensive metabolic 2000 panelon 11-18-2024 Albumin [Mass/Vol] 4.3 g/dL Normal 3.9-4.9 [facility] Comment on above: Order Comment: Speci men Type: BLOOD SPECIMEN Ordering Facility: [facility] Address: [address] [place] [address] Performed By: #### 2 4323-8, 41845-3, LIPCLOVIS, 3016-3 #### [facility] CLIA [id number] [address] [place] [address] [place] ALP [Catalytic activity/Vol] 90 U/L Normal 34-123 [facility] Comment on above: Order Comment: Speci men Type: BLOOD SPECIMEN Ordering Facility: [facility] Address: [address] [place] [address] Performed By: #### 2 4323-8, 04664-1, LIPNF, 3016-3 #### [facility] CLIA [id number] [address] [place] [address] [place] ALT [Catalytic activity/Vol] 59 U/L High 7-38 [facility] Comment on above: Order Comment: Speci men Type: BLOOD SPECIMEN Ordering Facility: [facility] Address: [address] [place] [address] Performed By: #### 2 4323-8, 28236-7, LIPNF, 3016-3 #### [facility] CLIA [id number] [address] [place] [address] [place] Anion gap [Moles/Vol] 13 mmol/L Normal 8-15 [facility] Comment on above: Order Comment: Speci men Type: BLOOD SPECIMEN Ordering Facility: [facility] Address: [address] [place] [address] Performed By: #### 2 4323-8, 25536-8, LIPNF, 3016-3 #### [facility] CLIA [id number] [address] [place] [address] [place] AST [Catalytic activity/Vol] 43 U/L High 13-35 [facility] Comment on above: Order Comment: Speci men Type: BLOOD SPECIMEN Ordering Facility: [facility] Address: [address] [place] [address] Performed By: #### 2 4323-8, 78363-0, LIPNF, 3016-3 #### [facility] CLIA [id number] [address] [place] [address] [place] Bilirubin [Mass/Vol] 0.4 mg/dL Normal 0.2-1.3 [facility] Comment on above: Order Comment: Speci men Type: BLOOD SPECIMEN Ordering Facility: [facility] Address: [address] [place] [address] Performed By: #### 2 4323-8, 26546-4, LIPNF, 3016-3 #### [facility] CLIA [id number] [address] [place] [address] [place] Calcium [Mass/Vol] 9.8 mg/dL Normal 8.5-10.2 [facility] Comment on above: Order Comment: Speci men Type: BLOOD SPECIMEN Ordering Facility: [facility] Address: [address] [place] [address] Performed By: #### 2 4323-8, 08338-5, LIPNF, 3016-3 #### [facility] CLIA [id number] [address] [place] [address] [place] Chloride [Moles/Vol] 104 mmol/L Normal 98-107 [facility] Comment on above: Order Comment: Speci men Type: BLOOD SPECIMEN Ordering Facility: [facility] Address: [address] [place] [address] Performed By: #### 2 4323-8, 69719-5, LIPNF, 3016-3 #### [facility] CLIA [id number] [address] [place] [address] [place] CO2 [Moles/Vol] 24 mmol/L Normal 22-30 [facility] Comment on above: Order Comment: Speci men Type: BLOOD SPECIMEN Ordering Facility: [facility] Address: [address] [place] [address] Performed By: #### 2 4323-8, 74745-9, LIPNF, 3016-3 #### [facility] CLIA [id number] [address] [place] [address] [place] Creatinine [Mass/Vol] 0.90 mg/dL Normal 0.58-0.96 [facility] Comment on above: Order Comment: Speci men Type: BLOOD SPECIMEN Ordering Facility: [facility] Address: [address] [place] [address] Performed By: #### 2 4323-8, 24870-8, LIPCLOVIS, 3016-3 #### [facility] CLIA [id number] [address] [place] [address] [place] Creatinine and Glomerular filtration rate.predicted panel (S/P/Bld) 82 mL/min/1.73m??? Normal >=60 [facility] Comment on above: Order Comment: Mary cabrera Type: BLOOD SPECIMEN Ordering Facility: [facility] Address: [address] [place] [address] Result Comment: Gilda mated Glomerular Filtration Rate [...] actual GFR. Performed By: #### 2 4323-8, 21399-2, HEATHER, 3016-3 #### [facility] CLIA [id number] [address] [place] [address] [place] Glucose [Mass/Vol] 116 mg/dL High 74-99 [facility] Comment on above: Order Comment: Mary cabrera Type: BLOOD SPECIMEN Ordering Facility: [facility] Address: [address] [place] [address] Result Comment: The [place] Diabetes Association (ADA) provides guidance for cutoff [...] Standards of Medical Care in Diabetes 2016, [place] Diabetes Association. Diabetes Care. 2016.39(Suppl 1). Performed By: #### 2 4323-8, 14715-4, LIPNF, 3016-3 #### [facility] CLIA [id number] [address] [place], [place] [address] [place] Potassium [Moles/Vol] 3.9 mmol/L Normal 3.7-5.1 [facility] Comment on above: Order Comment: Speci men Type: BLOOD SPECIMEN Ordering Facility: [facility] Address: [address] [place] [address] Performed By: #### 2 4323-8, , LIPNF, 3016-3 #### [facility] CLIA [id number] [address] [place] [address] [place] Protein [Mass/Vol] 8.0 g/dL Normal 6.3-8.0 [facility] Comment on above: Order Comment: Speci men Type: BLOOD SPECIMEN Ordering Facility: [facility] Address: [address] [place] [address] Performed By: #### 2 4323-8, , LIPNF, 3016-3 #### [facility] CLIA [id number] [address] [place] [address] [place] Sodium [Moles/Vol] 141 mmol/L Normal 136-144 [facility] Comment on above: Order Comment: Speci men Type: BLOOD SPECIMEN Ordering Facility: [facility] Address: [address] [place], [place] [address] Performed By: #### 2 4323-8, , LIPNF, 3016-3 #### [facility] CLIA [id number] [address] [place], [place] [address] [place] Urea nitrogen [Mass/Vol] 10 mg/dL Normal 7-21 [facility] Comment on above: Order Comment: Speci men Type: BLOOD SPECIMEN Ordering Facility: [facility] Address: [address] [place], [place] [address] Performed By: #### 2 4323-8, 26120-5, LIPNF, 3016-3 #### [facility] CLIA [id number] [address] [place] [address] [place] ECG COMPLETEon 11-18-2024 ECG COMPLETE Ventricular Rate : 8 8 BPM Atrial Rate : 88 BPM P-R Interval : 168 ms QRS Duration : 76 ms Q-T Interval : 368 ms QTC Calculation(Bazett) : 445 ms Calculated P Scotrun : 40 degrees Calculated R Scotrun : 7 degrees Calculated T Scotrun : 46 degrees NORMAL SINUS RHYTHM NORMAL ECG Confirmed by MD HILL QARAB ([id number]) on 11/30/2024 12:09:32 PM NAME : ANA HERNANDEZ PID : [id number] : 1980 Gender : Female Race : ORD : [id number] Procedure Date : Nov 18 2024 09:56:06 Edit Date : Nov 30 2024 12:09:36 Diagnosis: NORMAL SINUS RHYTHM NORMAL ECG Confirmed by MD HILL QARAB ([id number]) on 11/30/2024 12:09:32 PM Test Reason : R00.2 Palpitations Location : 185 : [facility] Overread By : MD HILL QARAB Edited By : MD HILL QARAB Referred By : , Acquired by : [id number], Merrick [facility] HbA1c (Bld)on 11-18-2024 Average glucose Estimated from glycated hemoglobin (Bld) [Mass/Vol] 183 mg/dL Normal [facility] Comment on above: Order Comment: Mary cabrera Type: BLOOD SPECIMENOrdering Facility: [facility] Address: [address] [place] [address] Result Comment: eAG: (Estimated average glucose) is a calculated value from HgbA1c and is education courses sales representative of the average blood glucose level in the last 2-3 month period. Performed By: #### 5 5454-3 ####[facility] [id number] [place] [address] [place] HbA1c (Bld) [Mass fraction] 8.0 % High 4.3-5.6 [facility] Comment on above: Order Comment: Speci men Type: BLOOD SPECIMENOrdering Facility: [facility] Address: [address] [place] [address] Result Comment: [place] Diabetes Association guidelines indicate that patients with HgbA1c in the range 5.7-6.4% are at increased risk for development of diabetes, and intervention by lifestyle modification may be beneficial. HgbA1c greater or equal to 6.5% is considered diagnostic of diabetes. Performed By: #### 5 5454-3 ####[facility] [id number] [place] [address] [place] LIPID PANEL, NONFASTINGon Cholesterol [Mass/Vol] 187 mg/dL Normal <200 [facility] Comment on above: Order Comment: Wili men Type: BLOOD SPECIMEN Ordering Facility: [facility] Address: [address] [place] [address] Result Comment: <200 mg/dL, Desirable 200-239 mg/dL, Borderline high >239 mg/dL, High Performed By: #### 2 4323-8, 37453-2, LIPNF, 3016-3 #### [facility] CLIA [id number] [address] [place] [address] [place] HDL CHOLESTEROL, NF 52 mg/dL Normal >39 [facility] Comment on above: Order Comment: Mary men Type: BLOOD SPECIMEN Ordering Facility: [facility] Address: [address] [place] [address] Result Comment: 40-5 9 mg/dL, Acceptable >59 mg/dL, High: Negative risk factor for coronary heart disease <40 mg/dL, Low: Positive risk factor for coronary heart disease Performed By: #### 2 4323-8, 85370-9, LIPNF, 3016-3 #### [facility] CLIA [id number] [address] [place] [address] [place] LDL CHOLESTEROL, NF 105 mg/dL High <100 [facility] Comment on above: Order Comment: Wili men Type: BLOOD SPECIMEN Ordering Facility: [facility] Address: [address] [place] [address] Result Comment: <100 mg/dL, Optimal 100-129 mg/dL, Near optimal/above optimal 130-159 mg/dL, Borderline high 160-189 mg/dL, High >189 mg/dL, Very high Secondary prevention optimal LDL Cholesterol levels are recommended to be < 70 mg/dL Performed By: #### 2 4323-8, 96704-7, LIPNF, 3016-3 #### [facility] CLIA [id number] [address] [facility] [address] STATES OF [facility] LDL/HDL RATIO, NF 2.02 mg/dL Normal <2.54 [facility] Comment on above: Order Comment: Mary cabrera Type: BLOOD SPECIMEN Ordering Facility: [facility] Address: [address] [place] [address] Result Comment: Refe rence: 1. National Cholesterol Education Program ATP III Guideline At-A-Glance Quick Desk Reference: National Heart, Lung, and Blood [place]. National Institutes of Health. 2001: NIH Publication No. 01-3305. 2. An International Atherosclerosis Society position paper: global recommendations for the management of dyslipidemia: executive summary, Atherosclerosis. 2014: 232(2):410-413. Performed By: #### 2 4323-8, 56397-4, LIPNF, 6-3 #### [facility] CLIA [id number] [address] [place] NON HDL CHOL, NF 135 mg/dL High <130 [facility] Comment on above: Order Comment: Mary cabrera Type: BLOOD SPECIMEN Ordering Facility: [facility] Address: [address] [place] [address] Result Comment: <130 mg/dL, Optimal 130-159 mg/dL, Near optimal/above optimal 160-189 mg/dL, Borderline high 190-219 mg/dL, High >219 mg/dL, Very high Secondary prevention optimal non HDL Cholesterol levels are recommended to be <100 mg/dL Performed By: #### 2 4323-8, 14164-4, LIPNF, 6-3 #### [facility] CLIA [id number] [address] [place], [place] [address] [place] T CHOL/HDL RATIO NF 3.60 mg/dL Normal <5.10 [facility] Comment on above: Order Comment: Speci men Type: BLOOD SPECIMEN Ordering Facility: [facility] Address: [address] [place] [address] Performed By: #### 2 4323-8, 85479-2, LIPNF, 3016-3 #### [facility] CLIA [id number] [address] [place] [address] [place] TRIGLYCERIDES, NF 148 mg/dL Normal <150 [facility] Comment on above: Order Comment: Speci men Type: BLOOD SPECIMEN Ordering Facility: [facility] Address: [address] [place] [address] Result Comment: <150 mg/dL, Normal 150-199 mg/dL, Borderline high 200-499 mg/dL, High >499 mg/dL, Very high Performed By: #### 2 4323-8, , LIPNF, 3016-3 #### [facility] CLIA [id number] [address] [place] [address] [place] VLDL CHOLESTEROL, NF 30 mg/dL High <30 [facility] Comment on above: Order Comment: Speci men Type: BLOOD SPECIMEN Ordering Facility: [facility] Address: [address] [place] [address] Performed By: #### 2 4323-8, , LIPNF, 3016-3 #### [facility] CLIA [id number] [address] [place], [place] [address] [place] Magnesium SerPl-mCncon 11-18 Magnesium [Mass/Vol] 1.5 mg/dL Low 1.7-2.3 [facility] Comment on above: Order Comment: Speci men Type: BLOOD SPECIMEN Ordering Facility: [facility] Address: [address] [place] [address] Performed By: #### 2 4322-8, 86698-6, LIPNF, 3016-3 #### [facility] CLIA [id number] [address] [place] [address] [place] TSH SerPl-aCncon 11-18-2024 TSH Qn 1.710 m[IU]/L Normal 0.270-4.200 [facility] Comment on above: Order Comment: Mary cabrera Type: BLOOD SPECIMEN Ordering Facility: [facility] Address: [address] [place] [address] Result Comment: If t he patient is , TSH reference range varies by gestational period: First Trimester (weeks 9-12): 0.180-2.990 mIU/L Second Trimester: 0.110-3.980 mIU/L Third Trimester: 0.480-4.710 mIU/L Smooth Tracy et al. A Practical Approach for the Verifications and Determination of Site- and Trimester-Specific Reference Intervals for Thyroid Function tests in . Thyroid, 2019:29:3:412-420. Melchor Valdovinos, et al. 2017 Guidelines of the [place] Thyroid Association for the Diagnosis and Management of Thyroid Disease during and the . Thyroid, 2017:27:3:315-389. Performed By: #### 2 4323-8, 23625-4, LIPNF, 3016-3 #### [facility] CLIA [id number] [address] [place] [address] [place] Vit B12 SerPl-mCncon 025 Cobalamin (Vitamin B12) [Mass/Vol] 688 pg/mL Normal 232-1245 [facility] Comment on above: Order Comment: Wili deborah Type: BLOOD SPECIMENOrdering Facility: [facility] Address: [address] [place] [address] Performed By: #### 2 132-9 ####[facility] [id number] [place] [address] [place] HFE (HEMOCHROMATOSIS)on 04-02 INTERPRETATION (HEMDNA) Normal [facility] Comment on above: Order Comment: Speci men Type: BLOOD SPECIMEN Ordering Facility: [facility] Address: [address] [place] [address] Result Comment: HFE (Hemochromatosis) Laboratory Accession Number: [id number] Result: C282Y: WT H63D: WT S65C: WT [...] curve analysis. The variants interrogated are c.845G>A, p.[id number]; [id number]; [id number] (legacy name C282Y), c.187C>G, p.[id number]; [id number]; [id number] (legacy name H63D) and c.193A>T, p.[id number]; [id number]; [id number] (legacy name S65C). The reference genome used was GRCh37/hg19. Limitations: DNA studies do not provide a definitive genetic risk in all individuals. This targeted test is designed to detect three specific variants (see methodology for details) in HFE (OMIM [id number]). Uncommon variants or single nucleotide polymorphisms may affect binding of probes and thus result in false negative, false positive, or indeterminate results. This test does not detect other HFE variants. Disclaimer: This test was developed and its performance characteristics determined by [facility] and [facility] [place] ([facility] It has not been cleared or approved by the FDA. [facility] is regulated under CLIA as certified to perform high- complexity testing. This test is used for clinical purposes. It should not be regarded as investigational or for research. Testing and interpretation performed at [facility], [address] [place] [address]. CLIA Number: [id number] As reviewed by Niki Leon MD, PhD Performed By: #### 5 7021-8 #### [facility] CLIA [id number] [address] [place] [address] [place] Chiqui 04-25-2024 CNPN Telephone (HEMAWS) -------- DAVIDANA Nobles ([id number]) 1980 F Date Time Provider Department 04/25/24 JOSE TSAI During your visit today, we [...] blood test to rule out hereditary hemochromatosis. DO Ly Rodriguez, Paul 04/25/2024 2:58 PM Signed I called and [...] ferritin [R79.89] Order(s):HFE (HEMOCHROMATOSIS) [SQHEMDNA] Order #: [id number] FUTURE Prescriptions as of 04/25/2024 - metroNIDAZOLE [...] Encounter Status:Closed by PAUL HUGHES on 04/25/24 Normal [facility] Chiqui 04-23-2024 CNPN Telephone (OBGYWM) -------- ANA HERNANDEZ ([id number]) 1980 F Date Time Provider Department 04/23/24 ZHENG LUNAGYWM During your visit today, we recorded the following information about you: Zheng Luna MD 04/23/2024 12:36 PM Signed See [...] blood-glucose meter,mobile dev (HOLLY BLOOD GLUCOSE MONITOR) yln - albuterol HFA (PROAIR HFA) 90 mcg/actuation [...] Status:Closed by ZHENG LUNA on 04/23/24 Normal [facility] BACTERIAL VAGINOSIS NAATon 0 04-22-2024 Lactobacillus crispatus+gasseri+dar senii + Gardnerella vaginalis + Atopobium vaginae rRNA MALIK+probe Ql (Vag fld) Positive Abnormal Negative for bacterial vaginosis [facility] Comment on above: Order Comment: Speci men Type: BLOOD SPECIMEN Ordering Facility: [facility] Address: [address] [place] [address] Performed By: #### 2 4323-8, 59432-5, LIPNF, 3016-3 #### [facility] CLIA [id number] [address] [place] [address] [place] WILLY/TRICHOMONAS NAATon 0 04-22-2024 C. glabrata RNA MALIK+probe Ql (Vag fld) Negative Normal Negative for Willy glabrata [facility] Comment on above: Order Comment: Speci men Type: BLOOD SPECIMEN Ordering Facility: [facility] Address: [address] [place] [address] Performed By: #### 2 4323-8, 46959-8, LIPNF, 3016-3 #### [facility] CLIA [id number] [address] [place] [address] [place] Willy sp DNA MALIK+probe Ql (Vag fld) Negative Normal Negative for Willy species [facility] Comment on above: Order Comment: Speci men Type: BLOOD SPECIMEN Ordering Facility: [facility] Address: [address] [place] [address] Performed By: #### 2 4323-8, 39327-5, LIPNF, 6-3 #### [facility] CLIA [id number] [address] [place] [address] [place] T. vaginalis DNA MALIK+probe Ql (Unsp spec) Negative Normal Negative for Trichomonas vaginalis by amplification [facility] Comment on above: Order Comment: Speci men Type: BLOOD SPECIMEN Ordering Facility: [facility] Address: [address] [place] [address] Performed By: #### 2 4323-8, 89150-8, LIPNF, 6-3 #### [facility] CLIA [id number] [address] [place] [address] [place] CBC W Ordered Manual Differe ntial panel (Bld)on 04-22-2024 Basophils (Bld) [#/Vol] 0.06 10*3/uL [facility] Basophils/100 WBC (Bld) 0.6 % [facility] Differential cell count method Nom (Bld) Auto [facility] Eosinophils (Bld) [#/Vol] 0.46 10*3/uL High [facility] Eosinophils/100 WBC (Bld) 4.5 % [facility] Erythrocyte distribution width (RBC) [Ratio] 12.0 % 11.5 - 15.0 % [facility] Hematocrit (Bld) [Volume fraction] 38.0 % 36.0 - 46.0 % [facility] Hemoglobin (Bld) [Mass/Vol] 12.6 g/dL 11.5 - 15.5 g/dL [facility] Immature granulocytes (Bld) [#/Vol] [facility] Immature granulocytes/100 WBC (Bld) 0.2 % [facility] Interpretation and review of laboratory results Abnormal [facility] Lymphocytes (Bld) [#/Vol] 3.69 10*3/uL [facility] Lymphocytes/100 WBC (Bld) 36.4 % [facility] MCH (RBC) [Entitic mass] 31.1 pg 26.0 - 34.0 pg [facility] MCHC (RBC) [Mass/Vol] 33.2 g/dL 30.5 - 36.0 g/dL [facility] MCV (RBC) [Entitic vol] 93.8 fL 80.0 - 100.0 fL [facility] Monocytes (Bld) [#/Vol] 0.66 10*3/uL [facility] Monocytes/100 WBC (Bld) 6.5 % [facility] Neutrophils (Bld) [#/Vol] 5.25 10*3/uL [facility] Neutrophils/100 WBC (Bld) 51.8 % [facility] Nucleated RBC (Bld) [#/Vol] NINF [facility] Nucleated RBC/100 WBC (Bld) [Ratio] 0.0 % /100 WBC [facility] Platelet mean volume (Bld) [Entitic vol] 10.7 fL 9.0 - 12.7 fL [facility] Platelets (Bld) [#/Vol] 288 10*3/uL [facility] RBC (Bld) [#/Vol] 4.05 10*6/uL 3.90 - 5.2 0 m/uL [facility] WBC (Bld) [#/Vol] 10.14 10*3/uL [facility] This is an appended report. These results have been appended to a previously verified report. [facility] Basophils (Bld) [#/Vol] 0.06 10*3/uL Normal <0.11 [facility] Comment on above: Order Comment: Speci men Type: BLOOD SPECIMEN Ordering Facility: [facility] Address: [address] [place] [address] Performed By: #### 5 7021-8 #### [facility] CLIA [id number] [address] [place] [address] [place] Basophils/100 WBC (Bld) 0.6 % Normal [facility] Comment on above: Order Comment: Speci men Type: BLOOD SPECIMEN Ordering Facility: [facility] Address: [address] [place] [address] Performed By: #### 5 7021-8 #### [facility] CLIA [id number] [address] [place] [address] [place] Differential cell count method Nom (Bld) Auto Normal [facility] Comment on above: Order Comment: Speci men Type: BLOOD SPECIMEN Ordering Facility: [facility] Address: [address] [place] [address] Performed By: #### 5 7021-8 #### [facility] CLIA [id number] [address] [place] [address] [place] Eosinophils (Bld) [#/Vol] 0.46 10*3/uL High <0.46 [facility] Comment on above: Order Comment: Speci men Type: BLOOD SPECIMEN Ordering Facility: [facility] Address: [address] [place] [address] Performed By: #### 5 7021-8 #### [facility] CLIA [id number] [address] [place] [address] [place] Eosinophils/100 WBC (Bld) 4.5 % Normal [facility] Comment on above: Order Comment: Speci men Type: BLOOD SPECIMEN Ordering Facility: [facility] Address: [address] [place] [address] Performed By: #### 5 7021-8 #### [facility] CLIA [id number] [address] [place] [address] [place] Erythrocyte distribution width (RBC) [Ratio] 12.0 % Normal 11.5-15.0 [facility] Comment on above: Order Comment: Speci men Type: BLOOD SPECIMEN Ordering Facility: [facility] Address: [address] [place] [address] Performed By: #### 5 7021-8 #### [facility] CLIA [id number] [address] [place] [address] [place] Hematocrit (Bld) [Volume fraction] 38.0 % Normal 36.0-46.0 [facility] Comment on above: Order Comment: Speci men Type: BLOOD SPECIMEN Ordering Facility: [facility] Address: [address] [place] [address] Performed By: #### 5 7021-8 #### [facility] CLIA [id number] [address] [place] [address] [place] Hemoglobin (Bld) [Mass/Vol] 12.6 g/dL Normal 11.5-15.5 [facility] Comment on above: Order Comment: Speci men Type: BLOOD SPECIMEN Ordering Facility: [facility] Address: [address] [place] [address] Performed By: #### 5 7021-8 #### [facility] CLIA [id number] [address] [place] [address] [place] Immature granulocytes (Bld) [#/Vol] 10*3/uL Normal <0.10 [facility] Comment on above: Order Comment: Speci men Type: BLOOD SPECIMEN Ordering Facility: [facility] Address: [address] [place] [address] Performed By: #### 5 7021-8 #### [facility] CLIA [id number] [address] [place] [address] [place] Immature granulocytes/100 WBC (Bld) 0.2 % Normal [facility] Comment on above: Order Comment: Speci men Type: BLOOD SPECIMEN Ordering Facility: [facility] Address: [address] [place] [address] Performed By: #### 5 7021-8 #### [facility] CLIA [id number] [address] [place] [address] [place] Lymphocytes (Bld) [#/Vol] 3.69 10*3/uL Normal 1.00-4.00 [facility] Comment on above: Order Comment: Speci men Type: BLOOD SPECIMEN Ordering Facility: [facility] Address: [address] [place] [address] Performed By: #### 5 7021-8 #### [facility] CLIA [id number] [address] [place] [address] [place] Lymphocytes/100 WBC (Bld) 36.4 % Normal [facility] Comment on above: Order Comment: Speci men Type: BLOOD SPECIMEN Ordering Facility: [facility] Address: [address] [place] [address] Performed By: #### 5 7021-8 #### [facility] CLIA [id number] [address] [place] [address] [place] MCH (RBC) [Entitic mass] 31.1 pg Normal 26.0-34.0 [facility] Comment on above: Order Comment: Speci men Type: BLOOD SPECIMEN Ordering Facility: [facility] Address: [address] [place] [address] Performed By: #### 5 7021-8 #### [facility] CLIA [id number] [address] [place] [address] [place] MCHC (RBC) [Mass/Vol] 33.2 g/dL Normal 30.5-36.0 [facility] Comment on above: Order Comment: Speci men Type: BLOOD SPECIMEN Ordering Facility: [facility] Address: [address] [place] [address] Performed By: #### 5 7021-8 #### [facility] CLIA [id number] [address] [place] [address] [place] MCV (RBC) [Entitic vol] 93.8 fL Normal 80.0-100.0 [facility] Comment on above: Order Comment: Speci men Type: BLOOD SPECIMEN Ordering Facility: [facility] Address: [address] [place] [address] Performed By: #### 5 7021-8 #### [facility] CLIA [id number] [address] [place] [address] [place] Monocytes (Bld) [#/Vol] 0.66 10*3/uL Normal <0.87 [facility] Comment on above: Order Comment: Speci men Type: BLOOD SPECIMEN Ordering Facility: [facility] Address: [address] [place] [address] Performed By: #### 5 7021-8 #### [facility] CLIA [id number] [address] [place] [address] [place] Monocytes/100 WBC (Bld) 6.5 % Normal [facility] Comment on above: Order Comment: Speci men Type: BLOOD SPECIMEN Ordering Facility: [facility] Address: [address] [place] [address] Performed By: #### 5 7021-8 #### [facility] CLIA [id number] [address] [place] [address] [place] Neutrophils (Bld) [#/Vol] 5.25 10*3/uL Normal 1.45-7.50 [facility] Comment on above: Order Comment: Speci men Type: BLOOD SPECIMEN Ordering Facility: [facility] Address: [address] [place] [address] Performed By: #### 5 7021-8 #### [facility] CLIA [id number] [address] [place] [address] [place] Neutrophils/100 WBC (Bld) 51.8 % Normal [facility] Comment on above: Order Comment: Speci men Type: BLOOD SPECIMEN Ordering Facility: [facility] Address: [address] [place] [address] Performed By: #### 5 7021-8 #### [facility] CLIA [id number] [address] [place], [place] [address] [place] Nucleated RBC (Bld) [#/Vol] 10*3/uL Normal <0.01 [facility] Comment on above: Order Comment: Speci men Type: BLOOD SPECIMEN Ordering Facility: [facility] Address: [address] [place], [place] [address] Performed By: #### 5 7021-8 #### [facility] CLIA [id number] [address] [place] [address] [place] Nucleated RBC/100 WBC (Bld) [Ratio] 0.0 /100 WBC Normal [facility] Comment on above: Order Comment: Speci men Type: BLOOD SPECIMEN Ordering Facility: [facility] Address: [address] [place] [address] Performed By: #### 5 7021-8 #### [facility] CLIA [id number] [address] [place] [address] [place] Platelet mean volume (Bld) [Entitic vol] 10.7 fL Normal 9.0-12.7 [facility] Comment on above: Order Comment: Speci men Type: BLOOD SPECIMEN Ordering Facility: [facility] Address: [address] [place] [address] Performed By: #### 5 7021-8 #### [facility] CLIA [id number] [address] [place] [address] [place] Platelets (Bld) [#/Vol] 288 10*3/uL Normal 150-400 [facility] Comment on above: Order Comment: Speci men Type: BLOOD SPECIMEN Ordering Facility: [facility] Address: [address] [place] [address] Performed By: #### 5 7021-8 #### [facility] CLIA [id number] [address] [place] [address] [place] RBC (Bld) [#/Vol] 4.05 10*6/uL Normal 3.90-5.20 [facility] Comment on above: Order Comment: Speci men Type: BLOOD SPECIMEN Ordering Facility: [facility] Address: [address] [place] [address] Performed By: #### 5 7021-8 #### [facility] CLIA [id number] [address] [place] [address] [place] WBC (Bld) [#/Vol] 10.14 10*3/uL Normal 3.70-11.00 [facility] Comment on above: Order Comment: Speci men Type: BLOOD SPECIMEN Ordering Facility: [facility] Address: [address] [place] [address] Performed By: #### 5 7021-8 #### [facility] CLIA [id number] [address] [place] [address] [facility] CNOVon 04-22-2024 CNOV Office Visit (OBGYWM ) -------- ANA HERNANDEZ ([id number]) 1980 F Date Time Provider Department 04/22/24 1:10 PM ZHENG LUNA OBGYWM During your visit today, we recorded the following information about you: Blood pressure Weight 110/72 91.6 kg Zheng Luna MD 04/22/2024 1:55 PM Signed Section Beamer offered: Patient declines. DATE OF SERVICE: 04/22/2024 [...] PLAN: Reviewed surgical findings [facility] Check for BV Discussed pain likely secondary to gas and constipation. Taking Colace. Sent rx for Miralax. Push fluids and encouraged probiotic, fiber, prune or pear juice. To notify office by Friday if no improvement with Miralax Zheng Luna DO Referring Provider: MYRANDA DALLAS [[id number]] Allergies As of Date: 04/22/2024 Noted Allergy [...] [N93.8] Order(s):BACTERIAL VAGINOSIS NAAT [SQBVAMP] Order #: [id number]. #:[id number] WILLY/TRICHOMONAS NAAT [SQCVTV] Order #: [id number]. #:[id number] polyethylene glycol 3350 17 gram/dose powderTake 17 g by mouth once daily.Disp: 116 gRfl: 0 CONSULT TO MINIMALLY INVASIVE GYNECOLOGIC SURGERY [[id number]] Order #: [id number]: 1 FUTURE Prescriptions as of 04/22/2024 - [...] Common m (more content not included)... Normal [facility] CNOVSPon 04-22-2024 CNOVSP Visit (SP) Office (PRITESH) -------- ANA HERNANDEZ ([id number]) 1980 F Date Time Provider Department 04/22/24 [...] PCOS--dx at age 7 when living in [place]. Was going have hysterectomy last week, but [...] current everyday user Substances: Nicotine, Flavoring Devices: RefUniversity of Wollongongble tank Substance Use Topics Alcohol use: No [...] been mild. (more content not included)... Normal [facility] CRP SerPl-mCncon 04-22-2024 CRP [Mass/Vol] 1.9 mg/dL High <0.9 [facility] Comment on above: Order Comment: Speci men Type: BLOOD SPECIMENOrdering Facility: [facility] Address: [address] [place] [address] Performed By: #### 2 276-4, 1987-12 ####[facility] [id number] [place] [address] [place] FLOW CYTOMETRY FOR LEUKEMIA/ LYMPHOMA (FCLL) PERFORMABLEon 04-22-2024 FLOW CYTOMETRY ORDER STATUS Results will be reported under F case ID when completed Normal [facility] Comment on above: Order Comment: Speci men Type: BLOOD SPECIMEN Ordering Facility: [facility] Address: [address] [place] [address] Performed By: #### 2 4323-8, 42735-9, LIPNF, 3016-3 #### [facility] CLIA [id number] [address] [place] [address] [place] FLOW CYTOMETRY FOR LEUKEMIA/ LYMPHOMA (FCLL) REFLEXon 04-22-2024 DIAGNOSIS COMMENT Normal [facility] Comment on above: Order Comment: Speci deborah Type: BLOOD SPECIMEN Ordering Facility: [facility] Address: [address] [place] [address] Result Comment: This test was developed and its performance characteristics determined by [facility]'s [facility] [place] [facility] It has not been cleared or approved by the FDA. [facility] is regulated under CLIA as qualified to perform high-complexity testing. This test is used for clinical purposes. It should not be regarded as investigational or for research. Performed By: #### 2 4323-8, 83218-9, LIPNF, 3016-3 #### [facility] CLIA [id number] [address] [place] [address] [place] FINAL PERFORMING LAB Normal [facility] Comment on above: Order Comment: Speci men Type: BLOOD SPECIMEN Ordering Facility: [facility] Address: [address] [place] [address] Result Comment: Diag nostic interpretation performed at [facility], [address] [place] [address] CLIA# [id number] Executive Recruiter: Stephen Gandhi M.D. Performed By: #### 2 4323-8, 21561-3, LIPNF, 3016-3 #### [facility] CLIA [id number] [address] [place] [address] [place] FLOW CYTOMETRY RESULTS Normal [facility] Comment on above: Order Comment: Speci men Type: BLOOD SPECIMEN Ordering Facility: [facility] Address: [address] [place] [address] Result Comment: Spec imen type: Peripheral blood [...] B-cells (23%). Performed By: #### 2 4323-8, 53611-0, HEATHER, 6-3 #### [facility] CLIA [id number] [address] [place] [address] [place] GROSS DESCRIPTION A. Blood Normal [facility] Comment on above: Order Comment: Speci men Type: BLOOD SPECIMEN Ordering Facility: [facility] Address: [address] [place] [address] Result Comment: RECE IVED TWO 3 ML TUBES OF PERIPHERAL BLOOD IN EDTA Performed By: #### 2 4323-8, 33047-8, HEATHER, 6-3 #### [facility] CLIA [id number] [address] [place] [address] [place] INTERPRETATION Normal [facility] Comment on above: Order Comment: Speci men Type: BLOOD SPECIMEN Ordering Facility: [facility] Address: [address] [place] [address] Result Comment: Ther e is no immunophenotypic evidence of involvement by a lymphoproliferative disorder. Correlation with the clinical findings is suggested. JBCRONIN04/23/2024 Performed By: #### 2 4323-8, 71671-8, LIPNF, 3016-3 #### [facility] CLIA [id number] [address] [place] [address] [place] Ferritin SerPl-mCncon 2023 Ferritin [Mass/Vol] 222.0 ng/mL High 14.7-205.1 [facility] Comment on above: Order Comment: Speci men Type: BLOOD SPECIMENOrdering Facility: [facility] Address: [address] [place] [address] Performed By: #### 2 276-4, 1987-12 ####[facility] LABCLIA [id number] [place] [address] [place] HBV core Ab Ser Qlon 024 HBV core Ab Ql (S) Negative Normal Negative [facility] Comment on above: Order Comment: Speci men Type: BLOOD SPECIMEN Ordering Facility: [facility] Address: [address] [place] [address] Result Comment: No e vidence of current or past infection with Hepatitis B virus. Should recent infection be suspected, repeat testing may be considered 3-4 weeks after this draw. Performed By: #### 5 7021-8 #### [facility] CLIA [id number] [address] [place] [address] [place] HBV surface Ab Ql (S)on 04-02 HBV surface Ab Qn (S) 10.64 mIU/mL Normal [facility] Comment on above: Order Comment: Speci men Type: BLOOD SPECIMEN Ordering Facility: [facility] Address: [address] [place] [address] Result Comment: <8 m IU/mL: No serological evidence of immunity to Hepatitis B Virus. >/= 8 to <12 mIU/mL: No serological evidence of immunity to Hepatitis B Virus. >/= 12 mIU/mL: Consistent with serological evidence of immunity to Hepatitis B Virus. Performed By: #### 5 7021-8 #### [facility] CLIA [id number] [address] [place] [address] [place] HBV surface Ab Ser Qlon 04-02 HBV surface Ab Ql (S) Equivocal Normal [facility] Comment on above: Order Comment: Speci men Type: BLOOD SPECIMEN Ordering Facility: [facility] Address: [address] [place] [address] Result Comment: No s erological evidence of immunity to Hepatitis B Virus. Performed By: #### 5 7021-8 #### [facility] CLIA [id number] [address] [place] [address] [place] HBV surface Ag Ser Qlon 04-02 HBV surface Ag Ql (S) Negative Normal Negative [facility] Comment on above: Order Comment: Speci men Type: BLOOD SPECIMEN Ordering Facility: [facility] Address: [address] [place] [address] Performed By: #### 5 7021-8 #### [facility] CLIA [id number] [address] [place] [address] [place] HCV Ab Ser Qlon 04-22-2024 HCV Ab Ql (S) Negative Normal Negative [facility] Comment on above: Order Comment: Speci deborah Type: BLOOD SPECIMENOrdering Facility: [facility] Address: [address] [place] [address] Result Comment: The result suggests no evidence of active infection with Hepatitis C virus. Should recent infection be suspected, repeat testing may be considered 4-6 weeks after this draw. Performed By: #### 1 6128-1 ####[facility] LABCLIA [id number] [place] [address] [place] PATHOLOGIST INTERPRETATION C BC/DIFFon 04-22-2024 Coil Maker review Wei (Unsp spec) [Interp] No review performed. Normal [facility] Comment on above: Order Comment: Speci men Type: BLOOD SPECIMEN [facility] Address: [address] [place] [address] Performed By: #### 5 7021-8 #### [facility] CLIA [id number] [address] [place], [place] [id number] [facility] REVIEW, CBCDIF Normal [facility] Comment on above: Order Comment: Speci men Type: BLOOD SPECIMEN [facility] Address: [address] [place] [address] Result Comment: The Pathologist Interpretation on this sample was cancelled because the hematology analyzer did not flag any parameters as requiring manual review. If there is a specific clinical concern for which you would like a pathologist to review the blood smear, please call Lab Client Services within 28 days. Performed By: #### 5 7021-8 #### [facility] CLIA [id number] [address] [place] [address] Emergency Department Summary on 04-21-2024 Emergency Department Summary [facility] Medical Records Department [address] [place] [address] Emergency Department Summary 04/21/24 MR#: [id number] Acct: [id number] Name: ANA HERNANDEZ Rep #: [id number] : 1980 44 From: Lloyd Thomas DO PCP: WILBERTO Andrews Status:DEP ER Location: ED HPI History of Present Illness Chief Complaint: Abd Pain Informant: patient and family Narrative Narrative: Patient is a 44-year-old female with past medical history of anxiety and depression as well as hypertension and plj-uhoswfn-tqcezppgx diabetes. Patient underwent a diagnostic laparoscopic surgery [...] secondary to this she presents for evaluation [facility] Medical History Injury of back Wears [...] never substance use type: does not use dillon/zoroastrian: None seatbelt use: always ROS ROS ED [...] easy bruis (more content not included)... Normal [facility] Abd Decub and/or Erect(Viji blon 04-20-2024 Abd Decub and/or Erect([facility] [address] [place] [address] Abd Decub and/or Erect([facility] MR#: [id number] Acct: [id number] Name: ANA HERNANDEZ Demarcus Rep #: [id number] : 1980 F 44 From: Sho Cardoso PCP: WILBERTO Andrews Status: REG ER Study: Abd Decub and/or Erect(Portabl Date of Exam: 0 04/20/24 Exam# [id number] Ordering Dr: Lloyd Thomas DO ADDENDUM by Dr. Sho Milton MD on 04/20/24 at 2244 [id number] INDICATION: constipation EXAMINATION/TECHNIQUE: X-RAY - XR Abdomen [...] is seen. The lung bases are clear. 04/20/242243 Date cc: Lloyd Thomas DO; WILBERTO Andrews [...] Sho Milton MD at 22:44 EDT , 04/20/242255 Date cc: Lloyd Thomas DO; WILBERTO Andrews * Signed We are attempting to reach an attending provider to discuss findings. An addendum with communication details will be sent when the communication is complete. [id number] INDICATION: constipation EXAMINATION/TECHNIQUE: X-RAY - XR Abdomen [...] , CC: Lloyd Thomas DO; WILBERTO Andrews Tape Coater: Signed Normal [facility] Basic Metabolic Profile (BMP )on 04-20-2024 BUN/CRE 11.8 RATIO Normal - [facility] Comment on above: Performed By: #### L 100.0500, BTSPAT, L501.5200, L500.4050 #### [facility] Laboratory [address] [place], [address] CA,Total 9.0 mg/dL Normal 8.5-10.1 [facility] Comment on above: Performed By: #### L 100.0500, BTSPAT, L501.5200, L500.4050 #### [facility] Laboratory [address] [place], [address] Chloride [Moles/Vol] 109 mmol/L High 98-107 [facility] Comment on above: Performed By: #### L 100.0500, BTSPAT, L501.5200, L500.4050 #### [facility] Laboratory [address] [place], [address] CO2 [Moles/Vol] 28.0 mmol/L Normal 21.0-32.0 [facility] Comment on above: Performed By: #### L 100.0500, BTSPAT, L501.5200, L500.4050 #### [facility] Laboratory [address] [place], [address] Creatinine [Mass/Vol] 0.85 mg/dL Normal 0.55-1.02 [facility] Comment on above: Result Comment: The validity of the calculated GFR GFRAA in patients over 70 years has not been determined. Clinical correlation is essential. Performed By: #### L 100.0500, BTSPAT, L501.5200, L500.4050 #### [facility] [address] [place], [address] ECRCL 89.63 ml/min Normal [facility] Comment on above: Performed By: #### L 100.0500, BTSPAT, L501.5200, L500.4050 #### [facility] [address] [place], [address] EST GFR - AA 94 mL/min Normal >60 [facility] Comment on above: Result Comment: Afri can Mongolian GFR Calc Performed By: #### L 100.0500, BTSPAT, L501.5200, L500.4050 #### [facility] Laboratory [address] [place], [address] GAP 5 Normal 5-15 [facility] Comment on above: Performed By: #### L 100.0500, BTSPAT, L501.5200, L500.4050 #### [facility] Laboratory [address] [place], [address] GFR/1.73 sq M.predicted among non-blacks MDRD (S/P/Bld) [Vol rate/Area] 78 mL/min/{1.73_m2} Normal >60 [facility] Comment on above: Result Comment: Non- GFR Calc Performed By: #### L 100.0500, BTSPAT, L501.5200, L500.4050 #### [facility] Laboratory [address] [place], [address] Glucose [Mass/Vol] 151 mg/dL High 74-106 [facility] Comment on above: Result Comment: Fast ing Glucose result greater than or equal to 126 mg/dL suggests DIABETES MELLITUS per A.D.A. criteria. Performed By: #### L 100.0500, BTSPAT, L501.5200, L500.4050 #### [facility] [address] [place], [address] Potassium [Moles/Vol] 3.6 mmol/L Normal 3.5-5.1 [facility] Comment on above: Performed By: #### L 100.0500, BTSPAT, L501.5200, L500.4050 #### [facility] [address] [place], [address] Sodium [Moles/Vol] 142 mmol/L Normal 136-145 [facility] Comment on above: Performed By: #### L 100.0500, BTSPAT, L501.5200, L500.4050 #### [facility] [address] [place], [address] Urea nitrogen [Mass/Vol] 10 mg/dL Normal 7-18 [facility] Comment on above: Performed By: #### L 100.0500, BTSPAT, L501.5200, L500.4050 #### [facility] [address] [place], [address] CBC W/Diff, Automatedon 08-2 0-2023 Absolute Lymph 4.42 X10 3/uL Normal 0.83-4.51 [facility] Comment on above: Performed By: #### L 100.0500, BTSPAT, L501.5200, L500.4050 #### [facility] Laboratory [address] [place], [address] Absolute Neut 5.9 X10 3/uL Normal 2.0-7.7 [facility] Comment on above: Performed By: #### L 100.0500, BTSPAT, L501.5200, L500.4050 #### [facility] Laboratory [address] [place], [address] Basophils/100 WBC (Bld) 0.6 % Normal 0-1 [facility] Comment on above: Performed By: #### L 100.0500, BTSPAT, L501.5200, L500.4050 #### [facility] [address] [place], [address] Eosinophils/100 WBC (Bld) 3.1 % Normal 0-5 [facility] Comment on above: Performed By: #### L 100.0500, BTSPAT, L501.5200, L500.4050 #### [facility] Laboratory [address] [place], [address] Erythrocyte distribution width (RBC) [Ratio] 12.2 % Normal 11.6-14.6 [facility] Comment on above: Performed By: #### L 100.0500, BTSPAT, L501.5200, L500.4050 #### [facility] [address] [place], [address] Hematocrit (Bld) [Volume fraction] 39.1 % Normal 37-47 [facility] Comment on above: Performed By: #### L 100.0500, BTSPAT, L501.5200, L500.4050 #### [facility] Laboratory [address] [place], [address] Hemoglobin (Bld) [Mass/Vol] 12.6 g/dL Normal 12.0-15.0 [facility] Comment on above: Performed By: #### L 100.0500, BTSPAT, L501.5200, L500.4050 #### [facility] [address] [place], [address] IG% 0.300 Normal 0.0-0.9 [facility] Comment on above: Result Comment: IG% - Immature Granulocytes (promyelocytes, myelocytes and metamyelocytes) > 1% indicates that a LEFT SHIFT is Present. Performed By: #### L 100.0500, BTSPAT, L501.5200, L500.4050 #### [facility] [address] [place], [address] Lymphocytes/100 WBC (Bld) 38.6 % Normal 19-41 [facility] Comment on above: Performed By: #### L 100.0500, BTSPAT, L501.5200, L500.4050 #### [facility] [address] [place], [address] MCH (RBC) [Entitic mass] 30.7 pg Normal 27.0-32.0 [facility] Comment on above: Performed By: #### L 100.0500, BTSPAT, L501.5200, L500.4050 #### [facility] Laboratory [address] [place], [address] MCHC (RBC) [Mass/Vol] 32.2 g/dL Normal 32-36 [facility] Comment on above: Performed By: #### L 100.0500, BTSPAT, L501.5200, L500.4050 #### [facility] [address] [place], [address] MCV (RBC) [Entitic vol] 95.1 fL Normal 81-99 [facility] Comment on above: Performed By: #### L 100.0500, BTSPAT, L501.5200, L500.4050 #### [facility] [address] [place], [address] Monocytes/100 WBC (Bld) 5.7 % Normal 0-10 [facility] Comment on above: Performed By: #### L 100.0500, BTSPAT, L501.5200, L500.4050 #### [facility] Laboratory [address] [place], [address] Neutrophils/100 WBC (Bld) 51.7 % Normal 47-70 [facility] Comment on above: Performed By: #### L 100.0500, BTSPAT, L501.5200, L500.4050 #### [facility] [address] [place], [address] Nucleated RBC (Bld) [#/Vol] 0 10*3/uL Normal 0-5 [facility] Comment on above: Performed By: #### L 100.0500, BTSPAT, L501.5200, L500.4050 #### [facility] Laboratory [address] [place], [address] Platelet mean volume (Bld) [Entitic vol] 10.9 fL Normal 6.2-12.0 [facility] Comment on above: Performed By: #### L 100.0500, BTSPAT, L501.5200, L500.4050 #### [facility] Laboratory [address] [place], [address] Platelets (Bld) [#/Vol] 284 10*3/uL Normal 150-450 [facility] Comment on above: Performed By: #### L 100.0500, BTSPAT, L501.5200, L500.4050 #### [facility] Laboratory [address] [place], [address] RBC (Bld) [#/Vol] 4.11 10*6/uL Low 4.2-5.4 [facility] Comment on above: Performed By: #### L 100.0500, BTSPAT, L501.5200, L500.4050 #### [facility] [address] [place], [address] RDW SD 42.2 fl Normal 35.1-43.9 [facility] Comment on above: Performed By: #### L 100.0500, BTSPAT, L501.5200, L500.4050 #### [facility] Laboratory [address] [place], [address] WBC (Bld) [#/Vol] 11.4 10*3/uL High 4.4-11.0 [facility] Comment on above: Performed By: #### L 100.0500, BTSPAT, L501.5200, L500.4050 #### [facility] Laboratory [address] [place], [address] Magnesiumon 04-20-2024 Magnesium [Mass/Vol] 1.6 mg/dL Normal 1.6-2.6 [facility] Comment on above: Performed By: #### L 100.0500, BTSPAT, L501.5200, L500.4050 #### [facility] Laboratory [address] [place], [address] Bedside Glucoseon 04-15-2024 FINGERSTICK GLU 155 mg/dL High 74-106 [facility] Comment on above: Result Comment: ISABELLA HARRIS OF PATIENT CARE PER NURSING PROTOCOL Performed By: #### L 100.0500, BTSPAT, L501.5200, L500.4050 #### [facility] Laboratory [address] [place], [address] Discharge Instructionon 04-01 Discharge Instruction [facility] Medical Records Department [address] [place] [address] Instructions for Home/Discharge Instructions 04/15/24 1327 MR#: [id number] Acct: [id number] Name: ANA HERNANDEZ Rep #: [id number] : 1980 44 From: Zheng Luna DO PCP: WILBERTO Andrews Status:REG [facility] Discharge Instructions Diet Discharge Diet: No restrictions [...] Attending Provider: Zheng Luna Primary Care Provider: Edmond Ferrer Instructions Print Language: Ecuadorean Discharge Orders/Prescriptions Prescriptions: New oxycodone-acetaminophen [Percocet] 5-325 [...] Dr. Jostin Daniels Referrals / Follow Up: Edmond Ferrer PA [Primary Care Provider] - Disposition Disposition (needs filled in before D/C Order can be placed): Home, Self Care 04/15/24 1328 Zheng Luna DO CC: WILBERTO Andrews Signed [facility] MR/POSTOP.Ginny 04-15-2024 MR/POSTOP.[facility] Medical Records Department [address] [place] [address] Anesthesia Postop Eval I 04/15/24 1446 MR#: [id number] Acct: [id number] Name: ANA HERNANDEZ Rep #: [id number] : 1980 44 From: Phani Bush CRNA PCP: WILBERTO Andrews Status:REG SDC Y Race: C Location: [place] [address] Anesthesia: Postop Eval I Current Vital Signs [...] completed: Yes 04/15/24 1447 Date Phani Bush DAIRY EQUIPMENT MECHANIC Cosigner Signature: Date CC: Signed Normal [facility] MR/[id number] 04-15-2024 MR/POSTOPAN2 [facility] Medical Records Department [address] [place] [address] Anesthesia Postop Eval II 04/15/24 1512 MR#: [id number] Acct: [id number] Name: ANA HERNANDEZ Rep #: [id number] : 1980 44 From: Eyad Mark MD PCP: WILBERTO Andrews Status:REG [facility] [place] Y Race: C Location: [place] [address] Anesthesia Postop Eval I Sum Postop Eval Completion status Anesthesia document: Postop Eval 1 completed: Yes Anesthesia Postop Eval I Summary Anesthesia Postop Eval I Summary: Anesthesia Postop Eval I: Assessment Summary Airway patent Yes 04/15/24 14:47 DAIRY EQUIPMENT MECHANIC.JBLOU Spontaneous unlabored Yes 04/15/24 14:47 DAIRY EQUIPMENT MECHANIC.JBLOU respirations Mental status Awake,Calm 04/15/24 14:47 DAIRY EQUIPMENT MECHANIC.JBLOU nausea No 04/15/24 14:47 DAIRY EQUIPMENT MECHANIC.JBLOU Vomiting No 04/15/24 14:47 DAIRY EQUIPMENT MECHANIC.JBLOU Anesthesia Postop Eval I: Fluid Summary Crystalloid volume administer 1,000 04/15/24 14:47 DAIRY EQUIPMENT MECHANIC.JBLOU (ml) Colloids volume administered ( ml) Blood Product volume administered (ml) Total IV fluid infused 1,000 04/15/24 14:47 DAIRY EQUIPMENT MECHANIC.JBLOU Anesthesia Postop Eval I: Summary Notes Anesthesia Complication No 04/15/24 14:47 DAIRY EQUIPMENT MECHANIC.JBLOU Anesthesia Complication Comment: Post-operative progress note Anesthesia: Postop Eval II Evaluation Mental status: Awake and Calm Pain Level: 2 nausea: No Vomiting: No Complications Anesthesia Complication: No 04/15/24 1514 Date Eyad Mark MD Cosigner Signature: Date CC: Signed Normal [facility] Operative Reporton 4 Operative Report [facility] Medical Records Department [address] [place] [address] Operative Report 04/15/24 1337 MR#: [id number] Acct: [id number] Name: ANA HERNANDEZ Rep #: [id number] : 1980 44 From: Zheng Luna DO PCP: WILBERTO Andrews Status:[facility] Location: [place] [address] Problems Associated Problem List Diagnoses (1) Menorrhagia: [...] obvious endometriosis was noted. Surgeon: Zheng Luna air defense specialist: Rhona Lamb Type of Anesthesia: General Special [...] Zheng Luna DO; WILBERTO Andrews Signed Normal [facility] ,Urineon 04-15-2024 Beta HCG ( test) Ql (U) Negative Normal [facility] Comment on above: Result Comment: Very dilute urine specimens, as indicated by a low specific gravity, may not contain education courses sales representative levels of hCG. If is still suspected, a first morning urine specimen should be collected 48 hours later and tested. Performed By: #### L 100.0500, BTSPAT, L501.5200, L500.4050 #### [facility] Laboratory [facility] [address] [place], [place], [id number] [facility] 04-14-2024 [facility] Telephone (OBGYWM) -------- ANA HERNANDEZ ([id number]) 1980 F Date Time Provider Department 04/14/24 ZHENG LUNA OBGYWM During your visit today, we recorded the following information about you: Myriam Wisdom RN 04/14/2024 10:[address] [facility] pharmacist, Douglas called. Patient is scheduled for [facility], vania martinez, Cystoscopy with SW tomorrow. Patient has a PCN allergy with hives noted. ordered Cefazolin 2 gram. Pharmacist asking if this needs changed. He can be contacted at [phone]. SADIQ Son Rebecca L, MD 04/14/2024 11:20 AM Signed Sent text to or they can page her tomorrow. MD Tavon Singh Tara, RN 04/15/2024 10:[address] [facility] Pharmacist calling back as Pt has [...] from this Date Reviewed: 04/02/2024 Reviewed by: Wiswell, Zheng, MD - Fully Assessed Reason for Visit: [...] Encounter Status:Closed by ALMITA SNYDER on 04/14/24 [facility] 12 Lead EKGon 04-06-2024 12 Lead EKG [facility] Cardiovascular Services [address] [place] [address] 12 Lead EKG 04/06/24 0812 MR#: [id number] Acct: [id number] Name: ANA HERNANDEZ Rep #: [id number] : 1980 44 From: Vincent Choi MD Attending Dr: Dr. Zheng Luna, Status: PRE SDC Ordering Dr: Jostin Daniels MD Date: 04/06/24 Location: [facility] [place] Sex: F C Admitted: Test Reason : PREOP Blood Pressure : / mmHG Vent. Rate : 055 BPM Atrial Rate : 055 BPM P-R Int : 178 ms QRS Dur : 080 ms QT Int : 460 ms P-R-T Axes : 031 026 051 degrees QTc Int : 440 ms Sinus bradycardia Otherwise normal ECG Confirmed by Vincent Choi ([id number]), primer expeditor and drier RASHAD ALCANTARA ([id number]) on 04/07/2024 8:59:45 AM Referred By: Zheng Luna Confirmed By:Vincent Choi 04/07/24 0859 Date Vincent Choi MD CC: Dr. Jostin Daniels MD; Dr. Zheng Luna DO; WILBERTO Andrews Signed Normal [facility] CBC-Complete Blood Cnt No Di ffon 04-06-2024 Erythrocyte distribution width (RBC) [Ratio] 12.3 % Normal 11.6-14.6 [facility] Comment on above: Performed By: #### L 100.0500, BTSPAT, L501.5200, L500.4050 #### [facility] Laboratory [address] [place], [address] Hematocrit (Bld) [Volume fraction] 38.7 % Normal 37-47 [facility] Comment on above: Performed By: #### L 100.0500, BTSPAT, L501.5200, L500.4050 #### [facility] Laboratory [address] [place], [address] Hemoglobin (Bld) [Mass/Vol] 12.3 g/dL Normal 12.0-15.0 [facility] Comment on above: Performed By: #### L 100.0500, BTSPAT, L501.5200, L500.4050 #### [facility] Laboratory [address] [place], [address] MCH (RBC) [Entitic mass] 30.4 pg Normal 27.0-32.0 [facility] Comment on above: Performed By: #### L 100.0500, BTSPAT, L501.5200, L500.4050 #### [facility] Laboratory [address] [place], [address] MCHC (RBC) [Mass/Vol] 31.8 g/dL Low 32-36 [facility] Comment on above: Performed By: #### L 100.0500, BTSPAT, L501.5200, L500.4050 #### [facility] Laboratory [address] [place], [address] MCV (RBC) [Entitic vol] 95.6 fL Normal 81-99 [facility] Comment on above: Performed By: #### L 100.0500, BTSPAT, L501.5200, L500.4050 #### [facility] Laboratory [address] [place], [address] Platelet mean volume (Bld) [Entitic vol] 11.4 fL Normal 6.2-12.0 [facility] Comment on above: Performed By: #### L 100.0500, BTSPAT, L501.5200, L500.4050 #### [facility] Laboratory [address] [place], [address] Platelets (Bld) [#/Vol] 267 10*3/uL Normal 150-450 [facility] Comment on above: Performed By: #### L 100.0500, BTSPAT, L501.5200, L500.4050 #### [facility] Laboratory [address] [place], [address] RBC (Bld) [#/Vol] 4.05 10*6/uL Low 4.2-5.4 [facility] Comment on above: Performed By: #### L 100.0500, BTSPAT, L501.5200, L500.4050 #### [facility] Laboratory [address] [place], [address] RDW SD 43.1 fl Normal 35.1-43.9 [facility] Comment on above: Performed By: #### L 100.0500, BTSPAT, L501.5200, L500.4050 #### [facility] Laboratory [address] [place], [address] WBC (Bld) [#/Vol] 12.3 10*3/uL High 4.4-11.0 [facility] Comment on above: Performed By: #### L 100.0500, BTSPAT, L501.5200, L500.4050 #### [facility] Laboratory [address] [place], [address] Comprehensive Metabolic Prof [facility] 04-06-2024 Albumin [Mass/Vol] 3.2 g/dL Normal 3.2-5.0 [facility] Comment on above: Performed By: #### L 100.0500, BTSPAT, L501.5200, L500.4050 #### [facility] Laboratory [address] [place], [address] Albumin/Globulin [Mass ratio] 0.8 {ratio} Low 0.9-2.4 [facility] Comment on above: Performed By: #### L 100.0500, BTSPAT, L501.5200, L500.4050 #### [facility] Laboratory [address] [place], [address] ALK P 70 U/L Normal 45-117 [facility] Comment on above: Performed By: #### L 100.0500, BTSPAT, L501.5200, L500.4050 #### [facility] Laboratory [address] [place], [address] ALT [Catalytic activity/Vol] 64 U/L High 13-56 [facility] Comment on above: Performed By: #### L 100.0500, BTSPAT, L501.5200, L500.4050 #### [facility] Laboratory [address] [place], [address] AST [Catalytic activity/Vol] 42 U/L High 15-37 [facility] [facility] Comment on above: Performed By: #### L 100.0500, BTSPAT, L501.5200, L500.4050 #### [facility] [address] [place] [place], [address] Bilirubin [Mass/Vol] 0.20 mg/dL Normal 0.20-1.00 [facility] Comment on above: Result Comment: For patients on eltrombopag therapy, use of Dimension [place] TBIL is not recommended. Performed By: #### L 100.0500, BTSPAT, L501.5200, L500.4050 #### [facility] [address] [place], [address] BUN/CRE 8.6 RATIO Low 10-20 [facility] Comment on above: Performed By: #### L 100.0500, BTSPAT, L501.5200, L500.4050 #### [facility] [address] [place] [place], [address] CA,Total 8.6 mg/dL Normal 8.5-10.1 [facility] Comment on above: Performed By: #### L 100.0500, BTSPAT, L501.5200, L500.4050 #### [facility] [address] [place], [address] Chloride [Moles/Vol] 109 mmol/L High 98-107 [facility] Comment on above: Performed By: #### L 100.0500, BTSPAT, L501.5200, L500.4050 #### [facility] [address] [place], [address] CO2 [Moles/Vol] 27.0 mmol/L Normal 21.0-32.0 [facility] Comment on above: Performed By: #### L 100.0500, BTSPAT, L501.5200, L500.4050 #### [facility] [address] [place], [address] Creatinine [Mass/Vol] 1.05 mg/dL High 0.55-1.02 [facility] Comment on above: Result Comment: The validity of the calculated GFR GFRAA in patients over 70 years has not been determined. Clinical correlation is essential. Performed By: #### L 100.0500, BTSPAT, L501.5200, L500.4050 #### [facility] [address] [place], [address] EST GFR - AA 74 mL/min Normal >60 [facility] Comment on above: Result Comment: Afri can Mongolian GFR Calc Performed By: #### L 100.0500, BTSPAT, L501.5200, L500.4050 #### [facility] [address] [place], [address] GAP 6 Normal 5-15 [facility] Comment on above: Performed By: #### L 100.0500, BTSPAT, L501.5200, L500.4050 #### [facility] [address] [place], [address] GFR/1.73 sq M.predicted among non-blacks MDRD (S/P/Bld) [Vol rate/Area] 61 mL/min/{1.73_m2} Normal >60 [facility] Comment on above: Result Comment: Non- GFR Calc Performed By: #### L 100.0500, BTSPAT, L501.5200, L500.4050 #### [facility] [address] [place], [address] Globulin (S) [Mass/Vol] 4.0 g/dL Normal 2.2-4.2 [facility] Comment on above: Performed By: #### L 100.0500, BTSPAT, L501.5200, L500.4050 #### [facility] [address] [place] [place], [address] Glucose [Mass/Vol] 119 mg/dL High 74-106 [facility] Comment on above: Result Comment: Fast ing Glucose result from 100 to 125 mg/dL suggests IMPAIRED HOMEOSTASIS per A.D.A. criteria. Performed By: #### L 100.0500, BTSPAT, L501.5200, L500.4050 #### [facility] [address] [place], [address] Potassium [Moles/Vol] 3.4 mmol/L Low 3.5-5.1 [facility] Comment on above: Performed By: #### L 100.0500, BTSPAT, L501.5200, L500.4050 #### [facility] [address] [place], [address] Sodium [Moles/Vol] 142 mmol/L Normal 136-145 [facility] Comment on above: Performed By: #### L 100.0500, BTSPAT, L501.5200, L500.4050 #### [facility] [address] [place], [address] T PROT 7.2 g/dL Normal 6.4-8.2 [facility] Comment on above: Performed By: #### L 100.0500, BTSPAT, L501.5200, L500.4050 #### [facility] [address] [place] [place], [address] Urea nitrogen [Mass/Vol] 9 mg/dL Normal 7-18 [facility] Comment on above: Performed By: #### L 100.0500, BTSPAT, L501.5200, L500.4050 #### [facility] [address] [place] [place], [address] HBA1C (OUTSIDE)Ordered By: Demarcus Watson on 04-06-2024 [facility] Hemoglobin [id number] By: Heidi Watson on 04-06-2024 HbA1c (Bld) [Mass fraction] 6.9 % High 3.8-5.6 [facility] Comment on above: Result Comment: Norm al < 5.7 % Prediabetic 5.7 - 6.4 % Diabetic >or= 6.5 % Please note range changes. Performed By: #### L 100.0500, BTSPAT, L501.5200, L500.4050 #### [facility] [address] [place], [place], [address] Magnesiumon 04-06-2024 Magnesium [Mass/Vol] 1.9 mg/dL Normal 1.6-2.6 [facility] Comment on above: Performed By: #### L 100.0500, BTSPAT, L501.5200, L500.4050 #### [facility] [address] [place], [place], [address] Type AND Screen - PAT ONLYon 04-06-2024 ABO and Rh group Nom (Bld) Blood group A Rh(D) positive Normal [facility] Comment on above: Order Comment: Surge ry Date: 04/15/24 Reason for Laboratory Test PREOP [id number] No N N S HYSTERECTOMY Performed By: #### L 100.0500, BTSPAT, L501.5200, L500.4050 #### [facility] [address] [place], [place], [address] CNOVon 04-02-2024 CNOV Office Visit (OBGYWM ) -------- ANA HERNANDEZ ([id number]) 1980 F Date Time Provider Department 04/02/24 9:20 AM ZHENG LUNA OBGYWM During your [...] current everyday user Substances: Nicotine, Flavoring Devices: RefUniversity of Wollongongble tank Substance Use Topics Alcohol use: No [...] There are (more content not included)... Normal [facility] CNPNon 04-02-2024 CNPN Telephone (OBGYWM) -------- ANA HERNANDEZ ([id number]) 1980 F Date Time Provider Department 04/02/24 ZHENG LUNA OBGYWEdmond During your visit today, we recorded the following information about you: Ricardo Mendez MA 04/02/2024 1:35 PM Signed Received patients [facility] paperwork for upcoming surgery. Completed and placed on providers desk for signature. MAXIMINO Whatley Morgan, MA 04/08/2024 11:38 AM Signed [facility] paperwork is completed and has been faxed [...] MD - Fully Assessed Reason for Visit: [facility] Paperwork [[id number]] Prescriptions as of 04/08/2024 - [...] Status:Closed by RICARDO MENDEZ on 04/08/24 Normal [facility] HISTORY PHYSICALon HISTORY PHYSICAL HNO ID: [id number] Author: ZHENG LUNA MD Service: ? Author [...] ORAL) Take by mouth. blood-glucose meter,mobile dev ([employer] BLOOD GLUCOSE MONITOR) lyn albuterol HFA (PROAIR [...] , appreciated (more content not included)... [facility]) -------- ANA HERNANDEZ ([id number]) 1980 F Date Time Provider Department 03/16/24 MYRANDA DALLAS [facility] During your visit today, we recorded the following information about you: Myranda Dallas APRN.[facility] 03/16/2024 8:17 AM Addendum Please let patient [...] Pruitt MA March 16, 2024 8:43 AM Nivia Lenz 03/16/2024 11:39 AM Signed Please review and advise. Jose Tsai DO 03/16/2024 12:46 PM Signed Low priority consultation. Next new with me or Dr. Posadas. DO Devin Machuca Melissa 03/16/2024 2:34 PM Signed 1st attempt. Message left for patient to schedule first available with Dr. Tsai or Dr. Posadas. - low priority consultation. 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 Normal [facility] CBC W Auto Differential pane l (Bld)on 03-15-2024 Basophils (Bld) [#/Vol] 0.13 10*3/uL High <0.11 [facility] Comment on above: Order Comment: Speci men Type: BLOOD SPECIMENOrdering Facility: [facility] Address: [address] [place] [address] Performed By: #### 5 7021-8 ####[facility] LABCLIA [id number] [place] [address] [place] Basophils/100 WBC (Bld) 1.0 % Normal [facility] Comment on above: Order Comment: Speci men Type: BLOOD SPECIMENOrdering Facility: [facility] Address: [address] [place] [address] Performed By: #### 5 7021-8 ####[facility] LABCLIA [id number] [place] [address] [place] Differential cell count method Nom (Bld) Manual Normal [facility] Comment on above: Order Comment: Speci men Type: BLOOD SPECIMENOrdering Facility: [facility] Address: [address] [place] [address] Performed By: #### 5 7021-8 ####[facility] LABCLIA [id number] [place] [address] [place] Eosinophils (Bld) [#/Vol] 0.13 10*3/uL Normal <0.46 [facility] Comment on above: Order Comment: Speci men Type: BLOOD SPECIMENOrdering Facility: [facility] Address: [address] [place] [address] Performed By: #### 5 7021-8 ####[facility] LABCLIA [id number] [place] [address] [place] Eosinophils/100 WBC (Bld) 1.0 % Normal [facility] Comment on above: Order Comment: Speci men Type: BLOOD SPECIMENOrdering Facility: [facility] Address: [address] [place] [address] Performed By: #### 5 7021-8 ####[facility] LABIA [id number] [place] [address] [place] Erythrocyte distribution width (RBC) [Ratio] 12.3 % Normal 11.5-15.0 [facility] Comment on above: Order Comment: Speci men Type: BLOOD SPECIMENOrdering Facility: [facility] Address: [address] [place] [address] Performed By: #### 5 7021-8 ####[facility] LABIA [id number] [place] [address] [place] Hematocrit (Bld) [Volume fraction] 38.6 % Normal 36.0-46.0 [facility] Comment on above: Order Comment: Speci men Type: BLOOD SPECIMENOrdering Facility: [facility] Address: [address] [place] [address] Performed By: #### 5 7021-8 ####[facility] LABIA [id number] [place] [address] [place] Hemoglobin (Bld) [Mass/Vol] 12.6 g/dL Normal 11.5-15.5 [facility] Comment on above: Order Comment: Speci men Type: BLOOD SPECIMENOrdering Facility: [facility] Address: [address] [place] [address] Performed By: #### 5 7021-8 ####[facility] LABIA [id number] [place] [address] [place] Lymphocytes (Bld) [#/Vol] 7.38 10*3/uL High 1.00-4.00 [facility] Comment on above: Order Comment: Speci men Type: BLOOD SPECIMENOrdering Facility: [facility] Address: [address] [place] [address] Performed By: #### 5 7021-8 ####[facility] LABCLIA [id number] [place] [address] [place] Lymphocytes/100 WBC (Bld) 59.0 % Normal [facility] Comment on above: Order Comment: Speci men Type: BLOOD SPECIMENOrdering Facility: [facility] Address: [address] [place] [address] Performed By: #### 5 7021-8 ####[facility] LABIA [id number] [place] [address] [place] MCH (RBC) [Entitic mass] 31.3 pg Normal 26.0-34.0 [facility] Comment on above: Order Comment: Speci men Type: BLOOD SPECIMENOrdering Facility: [facility] Address: [address] [place] [address] Performed By: #### 5 7021-8 ####[facility] LABIA [id number] [place] [address] [place] MCHC (RBC) [Mass/Vol] 32.6 g/dL Normal 30.5-36.0 [facility] Comment on above: Order Comment: Speci men Type: BLOOD SPECIMENOrdering Facility: [facility] Address: [address] [place] [address] Performed By: #### 5 7021-8 ####[facility] LABIA [id number] [place] [address] [place] MCV (RBC) [Entitic vol] 96.0 fL Normal 80.0-100.0 [facility] Comment on above: Order Comment: Speci men Type: BLOOD SPECIMENOrdering Facility: [facility] Address: [address] [place] [address] Performed By: #### 5 7021-8 ####[facility] LABIA [id number] [id number] [address] [place] Monocytes (Bld) [#/Vol] 0.38 10*3/uL Normal <0.87 [facility] Comment on above: Order Comment: Speci men Type: BLOOD SPECIMENOrdering Facility: [facility] Address: [address] [place] [address] Performed By: #### 5 7021-8 ####[facility] LABCLIA [id number] [place] [address] [place] Monocytes/100 WBC (Bld) 3.0 % Normal [facility] Comment on above: Order Comment: Speci men Type: BLOOD SPECIMENOrdering Facility: [facility] Address: [address] [place] [address] Performed By: #### 5 7021-8 ####[facility] LABCLIA [id number] [place] [address] [place] Neutrophils (Bld) [#/Vol] 4.50 10*3/uL Normal 1.45-7.50 [facility] Comment on above: Order Comment: Speci men Type: BLOOD SPECIMENOrdering Facility: [facility] Address: [address] [place] [address] Performed By: #### 5 7021-8 ####[facility] LABCLIA [id number] [place] [address] [place] Neutrophils/100 WBC (Bld) 36.0 % Normal [facility] Comment on above: Order Comment: Speci men Type: BLOOD SPECIMENOrdering Facility: [facility] Address: [address] [place] [address] Performed By: #### 5 7021-8 ####[facility] LABCLIA [id number] [place] [address] [place] Nucleated RBC (Bld) [#/Vol] 10*3/uL Normal <0.01 [facility] Comment on above: Order Comment: Speci men Type: BLOOD SPECIMENOrdering Facility: [facility] Address: [address] [place] [address] Performed By: #### 5 7021-8 ####[facility] LABIA [id number] [place] [address] [place] Nucleated RBC/100 WBC (Bld) [Ratio] 0.0 /100 WBC Normal [facility] Comment on above: Order Comment: Speci men Type: BLOOD SPECIMENOrdering Facility: [facility] Address: [address] [place] [address] Performed By: #### 5 7021-8 ####[facility] LABIA [id number] [place] [address] [place] Platelet mean volume (Bld) [Entitic vol] 11.6 fL Normal 9.0-12.7 [facility] Comment on above: Order Comment: Speci men Type: BLOOD SPECIMENOrdering Facility: [facility] Address: [address] [place] [address] Performed By: #### 5 7021-8 ####[facility] LABIA [id number] [place] [address] [place] Platelets (Bld) [#/Vol] 294 10*3/uL Normal 150-400 [facility] Comment on above: Order Comment: Speci men Type: BLOOD SPECIMENOrdering Facility: [facility] Address: [address] [place] [address] Performed By: #### 5 7021-8 ####[facility] LABIA [id number] [place] [address] [place] Platelets Estimate (Bld) [#/Vol] Adequate Normal [facility] Comment on above: Order Comment: Speci men Type: BLOOD SPECIMENOrdering Facility: [facility] Address: [address] [place] [address] Performed By: #### 5 7021-8 ####[facility] LABIA [id number] [place] [address] [place] RBC (Bld) [#/Vol] 4.02 10*6/uL Normal 3.90-5.20 [facility] Comment on above: Order Comment: Speci men Type: BLOOD SPECIMENOrdering Facility: [facility] Address: [address] [place] [address] Performed By: #### 5 7021-8 ####[facility] LABCLIA [id number] [place] [address] [place] RED CELL MORPH Reviewed: unremarkable Normal [facility] Comment on above: Order Comment: Speci men Type: BLOOD SPECIMENOrdering Facility: [facility] Address: [address] [place] [address] Performed By: #### 5 7021-8 ####[facility] LABCLIA [id number] [place] [address] [place] WBC (Bld) [#/Vol] 12.51 10*3/uL High 3.70-11.00 [facility] Comment on above: Order Comment: Speci men Type: BLOOD SPECIMENOrdering Facility: [facility] Address: [address] [place] [address] Performed By: #### 5 7021-8 ####[facility] LABCLIA [id number] [address] [place] CNOVon 03-15-2024 CNOV Office Visit (FAMPWS ) -------- ANA HERNANDEZ ([id number]) 1980 F Date Time Provider Department 03/15/24 8:40 AM MYRANDA DALLAS FAMPWS During your visit today, we recorded the following information about you: Pulse Blood pressure Weight Last Period 62/minute 104/70 92.1 kg 03/08/24 Myranda DallasKENDALL.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 RESP: Denies cough, wheeze but does have asthma that she states is well controlled CARD: Patient denies any dyspnea, recent [place], angina, arrhythmias, or valvular disease, and Denies [...] Supple C (more content not included)... Normal [facility] Comprehensive metabolic 2000 panelon 03-15-2024 Albumin [Mass/Vol] 4.0 g/dL Normal 3.9-4.9 [facility] Comment on above: Order Comment: Speci men Type: BLOOD SPECIMENOrdering Facility: [facility] Address: [address] [place] [address] Performed By: #### 1 9123-9, ####[facility] LABCLIA [id number] [place] [address] [place] ALP [Catalytic activity/Vol] 71 U/L Normal 34-123 [facility] Comment on above: Order Comment: Speci men Type: BLOOD SPECIMENOrdering Facility: [facility] Address: [address] [place] [address] Performed By: #### 1 23-9, ####[facility] LABCLIA [id number] [place] [address] [place] ALT [Catalytic activity/Vol] 54 U/L High 7-38 [facility] Comment on above: Order Comment: Speci men Type: BLOOD SPECIMENOrdering Facility: [facility] Address: [address] [place] [address] Performed By: #### 1 9823-9, ####[facility] LABCLIA [id number] [place] [address] [place] Anion gap [Moles/Vol] 10 mmol/L Normal 8-15 [facility] Comment on above: Order Comment: Speci men Type: BLOOD SPECIMENOrdering Facility: [facility] Address: [address] [place] [address] Performed By: #### 1 9123-9, 79962-1 ####[facility] LABCLIA [id number] [place] [id number] [place] AST [Catalytic activity/Vol] 37 U/L High 13-35 [facility] Comment on above: Order Comment: Speci men Type: BLOOD SPECIMENOrdering Facility: [facility] Address: [address] [place] [address] Performed By: #### 1 9123-9, 30694-0 ####[facility] LABIA [id number] [place] [address] [place] Bilirubin [Mass/Vol] 0.3 mg/dL Normal 0.2-1.3 [facility] Comment on above: Order Comment: Speci men Type: BLOOD SPECIMENOrdering Facility: [facility] Address: [address] [place] [address] Performed By: #### 1 9123-9, 53826-9 ####[facility] LABIA [id number] [place] [address] [place] Calcium [Mass/Vol] 9.3 mg/dL Normal 8.5-10.2 [facility] Comment on above: Order Comment: Speci men Type: BLOOD SPECIMENOrdering Facility: [facility] Address: [address] [place] [address] Performed By: #### 1 9123-9, 39978-4 ####[facility] LABIA [id number] [place] [address] [place] Chloride [Moles/Vol] 104 mmol/L Normal 98-107 [facility] Comment on above: Order Comment: Speci men Type: BLOOD SPECIMENOrdering Facility: [facility] Address: [address] [place] [address] Performed By: #### 1 9123-9, ####[facility] LABCLIA [id number] [place] [id number] [place] CO2 [Moles/Vol] 26 mmol/L Normal 22-30 [facility] Comment on above: Order Comment: Speci men Type: BLOOD SPECIMENOrdering Facility: [facility] Address: [address] [place] [address] Performed By: #### 1 9123-9, ####[facility] LABIA [id number] [place] [address] [place] Creatinine [Mass/Vol] 1.06 mg/dL High 0.58-0.96 [facility] Comment on above: Order Comment: Speci men Type: BLOOD SPECIMENOrdering Facility: [facility] Address: [address] [place] [address] Performed By: #### 1 91239, ####[facility] LABIA [id number] [place] [address] [place] Creatinine and Glomerular filtration rate.predicted panel (S/P/Bld) 67 mL/min/1.73m??? Normal >=60 [facility] Comment on above: Order Comment: Speci men Type: BLOOD SPECIMENOrdering Facility: [facility] Address: [address] [place] [address] Result Comment: Gilda mated Glomerular Filtration Rate [...] actual GFR. Performed By: #### 1 9123-9, ####[facility] LABIA [id number] [place] [address] [place] Glucose [Mass/Vol] 141 mg/dL High 74-99 [facility] Comment on above: Order Comment: Speci men Type: BLOOD SPECIMENOrdering Facility: [facility] Address: [address] [place] [address] Result Comment: The [place] [employer] (ADA) provides guidance for cutoff [...] Standards of Medical Care in Diabetes 2016, [place] [employer]. Diabetes Care. 2016.39(Suppl 1). Performed By: #### 1 9123-9, ####[facility] LABCLIA [id number] [place] [address] [place] Potassium [Moles/Vol] 4.0 mmol/L Normal 3.7-5.1 [facility] Comment on above: Order Comment: Mary cabrera Type: BLOOD SPECIMENOrdering Facility: [facility] Address: [address] [place] [address] Performed By: #### 1 9123-9, ####[facility] LABCLIA [id number] [place] [address] [place] Protein [Mass/Vol] 7.2 g/dL Normal 6.3-8.0 [facility] Comment on above: Order Comment: Speci men Type: BLOOD SPECIMENOrdering Facility: [facility] Address: [address] [place] [address] Performed By: #### 1 9123-9, ####[facility] LABCLIA [id number] [place] [address] [place] Sodium [Moles/Vol] 140 mmol/L Normal 136-144 [facility] Comment on above: Order Comment: Speci men Type: BLOOD SPECIMENOrdering Facility: [facility] Address: [address] [place] [address] Performed By: #### 1 9123-9, 15207-1 ####[facility] LABCLIA [id number] [place] [address] [place] Urea nitrogen [Mass/Vol] 14 mg/dL Normal 7-21 [facility] Comment on above: Order Comment: Speci men Type: BLOOD SPECIMENOrdering Facility: [facility] Address: [address] [place] [address] Performed By: #### 1 9123-9, 12651-6 ####[facility] LABIA [id number] [place] [address] [place] Magnesium SerPl-mCncon 03-15 Magnesium [Mass/Vol] 1.6 mg/dL Low 1.7-2.3 [facility] Comment on above: Order Comment: Speci men Type: BLOOD SPECIMENOrdering Facility: [facility] Address: [address] [place] [address] Performed By: #### 1 9123-9, 29959-6 ####[facility] LABIA [id number] [place] [address] [place] CNPNon 02-27-2024 [facility] ANA HERNANDEZ ([id number]) 1980 F Date Time Provider Department 02/27/24 [facility] During your visit today, we recorded the [...] ok with metformin increase Mariel Pruitt Ma Allergies As of Date: 02/27/2024 Noted Allergy [...] Date Reviewed: 02/26/2024 Reviewed by: Myranda Dallas APRN.SAFETY COMPANION - Fully Assessed Reason for Visit: Results [...] Take by mouth. - blood-glucose meter,mobile dev ([employer] BLOOD GLUCOSE MONITOR) lyn - albuterol HFA [...] mg t (more content not included)... Normal [facility] ALBUMIN/CREATININE RATIO, UR INEon 02-26-2024 Albumin DL <= 20 mg/L (U) [Mass/Vol] mg/dL Normal [facility] Comment on above: Order Comment: Specjoe cabrera Type: BLOOD SPECIMEN [facility] Address: [address] [place] [address] Performed By: #### 5 7021-8 #### [facility] LAB CLIA [id number] [address] [place] [address] [place] [address] [place] Albumin/Creatinine (U) [Mass ratio] <20 Normal <30 [facility] Comment on above: Order Comment: Mary cabrera Type: BLOOD SPECIMEN [facility] Address: [address] [place] [address] Result Comment: Adul t Male and Female Nephrotic Criteria: <30 mg/g is considered normal to mildly increased 30-300 mg/g is considered moderately increased >300 mg/g is considered severely increased KDIGO. (2013). KDIGO 2012 Clinical Practice Guideline for the Evaluation and Management of Chronic Kidney Disease. Official Journal of the International Society of Nephrology, 3(1), 1-150. Performed By: #### 5 7021-8 #### [facility] LAB CLIA [id number] [address] [place] [address] [place] Creatinine (U) [Mass/Vol] 60.0 mg/dL Normal 20.0-300.0 [facility] Comment on above: Order Comment: Speci men Type: BLOOD SPECIMEN [facility] Address: [address] [place] [address] Performed By: #### 5 7021-8 #### [facility] LAB CLIA [id number] [address] [place] [address] [place] CBC W Auto Differential pane l (Bld)on 02-26-2024 Basophils (Bld) [#/Vol] 0.00 10*3/uL Normal <0.11 [facility] Comment on above: Order Comment: Speci men Type: BLOOD SPECIMENOrdering Facility: [facility] Address: [address] [place] [address] Performed By: #### 5 7021-8 ####[facility] LABCLIA [id number] [place] [address] [place] Basophils/100 WBC (Bld) 0.0 % Normal [facility] Comment on above: Order Comment: Speci men Type: BLOOD SPECIMENOrdering Facility: [facility] Address: [address] [place] [address] Performed By: #### 5 7021-8 ####[facility] LABCLIA [id number] [place] [address] [place] Differential cell count method Nom (Bld) Manual Normal [facility] Comment on above: Order Comment: Speci men Type: BLOOD SPECIMENOrdering Facility: [facility] Address: [address] [place] [address] Performed By: #### 5 7021-8 ####[facility] LABCLIA [id number] [place] [address] [place] Eosinophils (Bld) [#/Vol] 0.21 10*3/uL Normal <0.46 [facility] Comment on above: Order Comment: Speci men Type: BLOOD SPECIMENOrdering Facility: [facility] Address: [address] [place] [address] Performed By: #### 5 7021-8 ####[facility] LABCLIA [id number] [place] [address] [place] Eosinophils/100 WBC (Bld) 1.7 % Normal [facility] Comment on above: Order Comment: Speci men Type: BLOOD SPECIMENOrdering Facility: [facility] Address: [address] [place] [address] Performed By: #### 5 7021-8 ####[facility] LABCLIA [id number] [place] [address] [place] Erythrocyte distribution width (RBC) [Ratio] 12.5 % Normal 11.5-15.0 [facility] Comment on above: Order Comment: Speci men Type: BLOOD SPECIMENOrdering Facility: [facility] Address: [address] [place] [address] Performed By: #### 5 7021-8 ####[facility] LABCLIA [id number] [place] [address] [place] Hematocrit (Bld) [Volume fraction] 41.7 % Normal 36.0-46.0 [facility] Comment on above: Order Comment: Speci men Type: BLOOD SPECIMENOrdering Facility: [facility] Address: [address] [place] [address] Performed By: #### 5 7021-8 ####[facility] LABCLIA [id number] [place] [address] [place] Hemoglobin (Bld) [Mass/Vol] 13.6 g/dL Normal 11.5-15.5 [facility] Comment on above: Order Comment: Speci men Type: BLOOD SPECIMENOrdering Facility: [facility] Address: [address] [place] [address] Performed By: #### 5 7021-8 ####[facility] LABCLIA [id number] [place] [address] [place] Lymphocytes (Bld) [#/Vol] 4.44 10*3/uL High 1.00-4.00 [facility] Comment on above: Order Comment: Speci men Type: BLOOD SPECIMENOrdering Facility: [facility] Address: [address] [place] [address] Performed By: #### 5 7021-8 ####[facility] LABCLIA [id number] [place] [address] [place] Lymphocytes/100 WBC (Bld) 36.5 % Normal [facility] Comment on above: Order Comment: Speci men Type: BLOOD SPECIMENOrdering Facility: [facility] Address: [address] [place] [address] Performed By: #### 5 7021-8 ####[facility] LABCLIA [id number] [place] [address] [place] MCH (RBC) [Entitic mass] 31.1 pg Normal 26.0-34.0 [facility] Comment on above: Order Comment: Speci men Type: BLOOD SPECIMENOrdering Facility: [facility] Address: [address] [place] [address] Performed By: #### 5 7021-8 ####[facility] LABCLIA [id number] [place] [address] [place] MCHC (RBC) [Mass/Vol] 32.6 g/dL Normal 30.5-36.0 [facility] Comment on above: Order Comment: Speci men Type: BLOOD SPECIMENOrdering Facility: [facility] Address: [address] [place] [address] Performed By: #### 5 7021-8 ####[facility] LABCLIA [id number] [place] [address] [place] MCV (RBC) [Entitic vol] 95.2 fL Normal 80.0-100.0 [facility] Comment on above: Order Comment: Speci men Type: BLOOD SPECIMENOrdering Facility: [facility] Address: [address] [place] [address] Performed By: #### 5 7021-8 ####[facility] LABCLIA [id number] [place] [address] [place] Monocytes (Bld) [#/Vol] 0.32 10*3/uL Normal <0.87 [facility] Comment on above: Order Comment: Speci men Type: BLOOD SPECIMENOrdering Facility: [facility] Address: [address] [place] [address] Performed By: #### 5 7021-8 ####[facility] LABIA [id number] [place] [address] [place] Monocytes/100 WBC (Bld) 2.6 % Normal [facility] Comment on above: Order Comment: Speci men Type: BLOOD SPECIMENOrdering Facility: [facility] Address: [address] [place] [address] Performed By: #### 5 7021-8 ####[facility] LABCLIA [id number] [place] [address] [place] Neutrophils (Bld) [#/Vol] 7.20 10*3/uL Normal 1.45-7.50 [facility] Comment on above: Order Comment: Speci men Type: BLOOD SPECIMENOrdering Facility: [facility] Address: [address] [place] [address] Performed By: #### 5 7021-8 ####[facility] LABCLIA [id number] [place] [address] [place] Neutrophils/100 WBC (Bld) 59.2 % Normal [facility] Comment on above: Order Comment: Speci men Type: BLOOD SPECIMENOrdering Facility: [facility] Address: [address] [place] [address] Performed By: #### 5 7021-8 ####[facility] LABCLIA [id number] [place] [address] [place] Nucleated RBC (Bld) [#/Vol] 10*3/uL Normal <0.01 [facility] Comment on above: Order Comment: Speci men Type: BLOOD SPECIMENOrdering Facility: [facility] Address: [address] [place] [address] Performed By: #### 5 7021-8 ####[facility] LABCLIA [id number] [place] [address] [place] Nucleated RBC/100 WBC (Bld) [Ratio] 0.0 /100 WBC Normal [facility] Comment on above: Order Comment: Speci men Type: BLOOD SPECIMENOrdering Facility: [facility] Address: [address] [place] [address] Performed By: #### 5 7021-8 ####[facility] LABCLIA [id number] [place] [address] [place] Platelet mean volume (Bld) [Entitic vol] 11.3 fL Normal 9.0-12.7 [facility] Comment on above: Order Comment: Speci men Type: BLOOD SPECIMENOrdering Facility: [facility] Address: [address] [place] [address] Performed By: #### 5 7021-8 ####[facility] LABCLIA [id number] [place] [address] [place] Platelets (Bld) [#/Vol] 314 10*3/uL Normal 150-400 [facility] Comment on above: Order Comment: Speci men Type: BLOOD SPECIMENOrdering Facility: [facility] Address: [address] [place] [address] Performed By: #### 5 7021-8 ####[facility] LABCLIA [id number] [place] [address] [place] Platelets Estimate (Bld) [#/Vol] Adequate Normal [facility] Comment on above: Order Comment: Speci men Type: BLOOD SPECIMENOrdering Facility: [facility] Address: [address] [place] [address] Performed By: #### 5 7021-8 ####[facility] LABCLIA [id number] [place] [address] [place] Polychromasia LM Ql (Bld) Slight Normal [facility] Comment on above: Order Comment: Speci men Type: BLOOD SPECIMENOrdering Facility: [facility] Address: [address] [place] [address] Performed By: #### 5 7021-8 ####[facility] LABCLIA [id number] [place] [address] [place] RBC (Bld) [#/Vol] 4.38 10*6/uL Normal 3.90-5.20 [facility] Comment on above: Order Comment: Speci men Type: BLOOD SPECIMENOrdering Facility: [facility] Address: [address] [place] [address] Performed By: #### 5 7021-8 ####[facility] LABCLIA [id number] [place] [address] [place] RED CELL MORPH Reviewed: unremarkable Normal [facility] Comment on above: Order Comment: Speci men Type: BLOOD SPECIMENOrdering Facility: [facility] Address: [address] [place] [address] Performed By: #### 5 7021-8 ####[facility] LABCLIA [id number] [place] [address] [place] WBC (Bld) [#/Vol] 12.16 10*3/uL High 3.70-11.00 [facility] Comment on above: Order Comment: Speci men Type: BLOOD SPECIMENOrdering Facility: [facility] Address: [address] [place] [address] Performed By: #### 5 7021-8 ####[facility] LABCLIA [id number] [id number] [place] CNOVon 02-26-2024 CNOV Office Visit ([facility]AMPWS ) -------- ANA HERNANDEZ ([id number]) 1980 F Date Time Provider Department 02/26/24 8:20 AM MYRANDA DALLAS [facility]AMPWS During your visit today, we recorded the following information about you: Pulse Respiration Blood pressure Weight 81/minute 16/minute 112/72 92.5 kg 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 RESP: + asthma CARD: Patient denies any dyspnea, recent [place], angina, arrhythmias, or valvular disease, and Denies [...] capillary r (more content not included)... Normal [facility] Comprehensive metabolic 2000 panelon 02-26-2024 Albumin [Mass/Vol] 4.2 g/dL Normal 3.9-4.9 [facility] Comment on above: Order Comment: Speci men Type: BLOOD SPECIMEN [facility] Address: [address] [place] [address] Performed By: #### 2 4323-8, 26980-4, LIPCLOVIS, 3016-3 #### [facility] CLIA [id number] [address] [place] [address] [place] ALP [Catalytic activity/Vol] 78 U/L Normal 34-123 [facility] Comment on above: Order Comment: Speci men Type: BLOOD SPECIMEN [facility] Address: [address] [place] [address] Performed By: #### 2 4323-8, 89999-7, LIPNF, 3016-3 #### [facility] CLIA [id number] [address] [place] [address] [place] ALT [Catalytic activity/Vol] 63 U/L High 7-38 [facility] Comment on above: Order Comment: Speci men Type: BLOOD SPECIMEN [facility] Address: [address] [place] [address] Performed By: #### 2 4323-8, 94511-5, LIPNF, 3016-3 #### [facility] CLIA [id number] [address] [place] [address] [place] Anion gap [Moles/Vol] 12 mmol/L Normal 8-15 [facility] Comment on above: Order Comment: Speci men Type: BLOOD SPECIMEN [facility] Address: [address] [place] [address] Performed By: #### 2 4323-8, 63358-7, LIPNF, 3016-3 #### [facility] CLIA [id number] [address] [place] [address] [place] AST [Catalytic activity/Vol] 48 U/L High 13-35 [facility] Comment on above: Order Comment: Speci men Type: BLOOD SPECIMEN [facility] Address: [address] [place] [address] Performed By: #### 2 4323-8, 09849-3, LIPNF, 3016-3 #### [facility] CLIA [id number] [address] [place], [place] [address] [place] Bilirubin [Mass/Vol] 0.3 mg/dL Normal 0.2-1.3 [facility] Comment on above: Order Comment: Speci men Type: BLOOD SPECIMEN [facility] Address: [address] [place] [address] Performed By: #### 2 4323-8, 10143-3, LIPNF, 3016-3 #### [facility] CLIA [id number] [address] [place], [place] [address] [place] Calcium [Mass/Vol] 9.8 mg/dL Normal 8.5-10.2 [facility] Comment on above: Order Comment: Speci men Type: BLOOD SPECIMEN [facility] Address: [address] [place] [address] Performed By: #### 2 4323-8, 63249-2, LIPNF, 3016-3 #### [facility] CLIA [id number] [address] [place], [place] [address] [place] Chloride [Moles/Vol] 106 mmol/L Normal 98-107 [facility] Comment on above: Order Comment: Speci men Type: BLOOD SPECIMEN [facility] Address: [address] [place] [address] Performed By: #### 2 4323-8, 83794-3, LIPNF, 3016-3 #### [facility] CLIA [id number] [address] [place], [place] [address] [place] CO2 [Moles/Vol] 22 mmol/L Normal 22-30 [facility] Comment on above: Order Comment: Speci men Type: BLOOD SPECIMEN [facility] Address: [address] [place] [address] Performed By: #### 2 4323-8, 46554-1, LIPNF, 3016-3 #### [facility] CLIA [id number] [address] [place], [place] [address] [place] Creatinine [Mass/Vol] 0.88 mg/dL Normal 0.58-0.96 [facility] Comment on above: Order Comment: Mary cabrera Type: BLOOD SPECIMEN [facility] Address: [address] [place] [address] Performed By: #### 2 4323-8, 78150-4, LIPCLOVIS, 3016-3 #### [facility] CLIA [id number] [address] [place] [address] [place] Creatinine and Glomerular filtration rate.predicted panel (S/P/Bld) 84 mL/min/1.73m??? Normal >=60 [facility] Comment on above: Order Comment: Mary cabrera Type: BLOOD SPECIMEN [facility] Address: [address] [place] [address] Result Comment: Gilda mated Glomerular Filtration Rate [...] actual GFR. Performed By: #### 2 4323-8, 77768-1, HEATHER, 3016-3 #### [facility] CLIA [id number] [address] [place] [address] [place] Glucose [Mass/Vol] 159 mg/dL High 74-99 [facility] Comment on above: Order Comment: Mary cabrera Type: BLOOD SPECIMEN [facility] Address: [address] [place] [address] Result Comment: The [place] Diabetes Association (ADA) provides guidance for cutoff [...] Standards of Medical Care in Diabetes 2016, [place] [employer]. Diabetes Care. 2016.39(Suppl 1). Performed By: #### 2 4323-8, 81581-0, LIPNF, 3016-3 #### [facility] CLIA [id number] [address] [place] [address] [place] Potassium [Moles/Vol] 4.4 mmol/L Normal 3.7-5.1 [facility] Comment on above: Order Comment: Speci men Type: BLOOD SPECIMEN [facility] Address: [address] [place] [address] Performed By: #### 2 4323-8, 55151-0, LIPNF, 3016-3 #### [facility] CLIA [id number] [address] [place] [address] [place] Protein [Mass/Vol] 7.7 g/dL Normal 6.3-8.0 [facility] Comment on above: Order Comment: Speci men Type: BLOOD SPECIMEN [facility] Address: [address] [place] [address] Performed By: #### 2 4323-8, 11028-3, LIPNF, 3016-3 #### [facility] CLIA [id number] [address] [place] [address] [place] Sodium [Moles/Vol] 140 mmol/L Normal 136-144 [facility] Comment on above: Order Comment: Speci men Type: BLOOD SPECIMEN [facility] Address: [address] [place] [address] Performed By: #### 2 4323-8, 17106-0, LIPNF, 3016-3 #### [facility] CLIA [id number] [address] [place] [address] [place] Urea nitrogen [Mass/Vol] 9 mg/dL Normal 7-21 [facility] Comment on above: Order Comment: Mary cabrera Type: BLOOD SPECIMEN [facility] Address: [address] [place] [address] Performed By: #### 2 4323-8, 41540-5, LIPNF, 3016-3 #### [facility] CLIA [id number] [address] [place], [place] [address] [address] [place] HbA1c (Bld)on 02-26-2024 Average glucose Estimated from glycated hemoglobin (Bld) [Mass/Vol] 169 mg/dL Normal [facility] Comment on above: Order Comment: Mary cabrera Type: BLOOD SPECIMENOrdering Facility: [facility] Address: [address] [place] [address] Result Comment: eAG: (Estimated average glucose) is a calculated value from HgbA1c and is education courses sales representative of the average blood glucose level in the last 2-3 month period. Performed By: #### 5 5454-3 ####[facility] LABCLIA [id number] [place] [address] [place] HbA1c (Bld) [Mass fraction] 7.5 % High 4.3-5.6 [facility] Comment on above: Order Comment: Mary cabrera Type: BLOOD SPECIMENOrdering Facility: [facility] Address: [address] [place] [address] Result Comment: [place] Diabetes Association guidelines indicate that patients with HgbA1c in the range 5.7-6.4% are at increased risk for development of diabetes, and intervention by lifestyle modification may be beneficial. HgbA1c greater or equal to 6.5% is considered diagnostic of diabetes. Performed By: #### 5 5454-3 ####[facility] LABCLIA [id number] [place] [id number] [place] Magnesium SerPl-mCncon 02-25 Magnesium [Mass/Vol] 1.6 mg/dL Low 1.7-2.3 [facility] Comment on above: Order Comment: Mary cabrera Type: BLOOD SPECIMEN [facility] Address: [address] [place] [address] Performed By: #### 2 4323-8, 49035-4, HEATHER, 3016-3 #### [facility] CLIA [id number] [address] [place] [address] [place] TSH SerPl-aCncon 02-26-2024 TSH Qn 1.830 m[IU]/L Normal 0.270-4.200 [facility] Comment on above: Order Comment: Wiljoe cabrera Type: BLOOD SPECIMEN [facility] Address: [address] [place], [place] [address] [address] Result Comment: If t he patient is , TSH reference range varies by gestational period: First Trimester (weeks 9-12): 0.180-2.990 mIU/L Second Trimester: 0.110-3.980 mIU/L Third Trimester: 0.480-4.710 mIU/L Smooth Tracy et al. A Practical Approach for the Verifications and Determination of Site- and Trimester-Specific Reference Intervals for Thyroid Function tests in . Thyroid, 2019:29:3:412-420. Mlechor Valdovinos, et al. 2017 Guidelines of the [place] [employer] for the Diagnosis and Management of Thyroid Disease during and the . Thyroid, 2017:27:3:315-389. Performed By: #### 2 4323-8, 38182-3, HEATHER, 3016-3 #### [facility] CLIA [id number] [address] [place], [place] [id number] [place] CNPKiki 02-24-2024 CNPN Telephone (FAMPWS) -------- ANA HERNANDEZ ([id number]) 1980 F Date Time Provider Department 02/24/24 Edmond FERRER During your visit today, we recorded the following information about you: Mariel Pruitt MA 02/24/2024 1:43 PM Signed Please help pt schedule pre-op appointment for upcoming sales representative cash registers procedure. Joycelyn Box 02/24/2024 2:46 PM Signed Spoke with patient and scheduled on 02/26/24 with Myranda Whitehead APRN.SAFETY COMPANION 02/27/2024 11:57 AM Signed Please check with [...] 200 mg (more content not included)... Normal [facility] CNOVon 02-23-2024 CNOV Office Visit (OBGYWM ) -------- ANA HERNANDEZ ([id number]) 1980 F Date Time Provider Department 02/23/24 9:20 AM ZHENG LUNA OBGYWEdmond During your visit today, we recorded the [...] Status:Closed by ZHENG LUNA on 02/23/24 Normal [facility] Bedside Glucoseon 02-05-2024 FINGERSTICK GLU 117 mg/dL High 74-106 [facility] Comment on above: Result Comment: ISABELLA HARRIS OF PATIENT CARE PER NURSING PROTOCOL Performed By: #### L 501.080 #### [facility] [address] [place], [address] Discharge Instructionon Discharge Instruction [facility] Medical Records Department [address] [place] [address] Instructions for Home/Discharge Instructions 02/05/24 1353 MR#: [id number] Acct: [id number] Name: ANA HERNANDEZ Rep #: [id number] : 1980 44 From: Zheng Luna DO PCP: WILBERTO Andrews Status[place] [facility] [place] Discharge Instructions Diet Discharge Diet: No restrictions [...] Attending Provider: Zheng Luna Primary Care Provider: Edmond Ferrer Instructions Print Language: Ecuadorean Discharge Orders/Prescriptions Prescriptions: Continued multivitamin tablet 1 [...] mouth at bedtime Referrals / Follow Up: Edmond Ferrer PA [Primary Care Provider] - Disposition Disposition (needs filled in before D/C Order can be placed): Home, Self Care 02/05/24 1356 Zheng Luna DO CC: WILBERTO Andrews Signed Normal [facility] Operative Reporton 4 Operative Report [facility] Medical Records Department [address] [place] [address] Operative Report 02/05/24 1339 MR#: [id number] Acct: [id number] Name: ANA HERNANDEZ Rep #: [id number] : 1980 44 From: Zheng Luna DO PCP: WILBERTO Andrews Status:[facility] Location: [place] [address] Problems Associated Problem List Diagnoses (1) DUB (dysfunctional uterine bleeding): (2) Menorrhagia: Report of Operation Date of Procedure: 02/05/24 Pre-Operative Diagnosis: Menorrhagia, DUB, endometrial biopsy with proliferative endometrium and possible polyp Post-Operative Diagnosis: As above Surgery/Procedure Performed:: Attempted hysteroscopy Description of Surgical Findings:: Normal appearing vaginal tissue and cervix Surgeon: Zheng Luna air defense specialist: None Type of Anesthesia: MAC Special Medications: [...] Zheng Luna DO; WILBERTO Andrews Signed Normal [facility] ,Urineon 02-05-2024 Beta HCG ( test) Ql (U) Negative Normal [facility] Comment on above: Result Comment: Very dilute urine specimens, as indicated by a low specific gravity, may not contain education courses sales representative levels of hCG. If is still suspected, a first morning urine specimen should be collected 48 hours later and tested. Performed By: #### L 100.0500, BTSPAT, L501.5200, L500.4050 #### [facility] [address] [place], [address] UA DIP,URINE HCG (POC)on Beta HCG ( test) Ql (U) Negative Negative [facility] Comment on above: Location:[facility], [address], [place], [address] Metal Tester (POCT) Internal QC [place] [facility] Location:[facility], [address], [place], [address] [facility] POINT OF CARE [facility] CBC W Auto Differential pane l (Bld)on 12-16-2023 Basophils (Bld) [#/Vol] 0.00 10*3/uL <0.11 k/uL [facility] Basophils/100 WBC (Bld) 0.0 % [facility] Differential cell count method Nom (Bld) Manual [facility] Eosinophils (Bld) [#/Vol] 0.48 10*3/uL High <0.46 k/uL [facility] Eosinophils/100 WBC (Bld) 5.0 % [facility] Erythrocyte distribution width (RBC) [Ratio] 12.7 % 11.5 - 15.0 % [facility] Hematocrit (Bld) [Volume fraction] 38.0 % 36.0 - 46.0 % [facility] Hemoglobin (Bld) [Mass/Vol] 12.6 g/dL 11.5 - 15.5 g/dL [facility] Lymphocytes (Bld) [#/Vol] 3.93 10*3/uL 1.00 - 4.00 k/uL [facility] Lymphocytes/100 WBC (Bld) 41.0 % [facility] MCH (RBC) [Entitic mass] 31.0 pg 26.0 - 34.0 pg [facility] MCHC (RBC) [Mass/Vol] 33.2 g/dL 30.5 - 36.0 g/dL [facility] MCV (RBC) [Entitic vol] 93.4 fL 80.0 - 100.0 fL [facility] Monocytes (Bld) [#/Vol] 0.58 10*3/uL <0.87 k/uL [facility] Monocytes/100 WBC (Bld) 6.0 % [facility] Neutrophils (Bld) [#/Vol] 4.60 10*3/uL 1.45 - 7.50 k/uL [facility] Neutrophils/100 WBC (Bld) 48.0 % [facility] Nucleated RBC (Bld) [#/Vol] <0.01 k/uL [facility] Nucleated RBC/100 WBC (Bld) [Ratio] 0.0 /100 WBC [facility] Platelet mean volume (Bld) [Entitic vol] 10.6 fL 9.0 - 12.7 fL [facility] Platelets (Bld) [#/Vol] 326 10*3/uL 150 - 400 k/uL [facility] Platelets Estimate (Bld) [#/Vol] Adequate [facility] RBC (Bld) [#/Vol] 4.07 10*6/uL 3.90 - 5.2 0 m/uL [facility] Red Cell Morph Reviewed: normal [facility] WBC (Bld) [#/Vol] 9.59 10*3/uL 3.70 - 11. 00 k/uL [facility] Iron and Iron binding capaci ty panelon 12-16-2023 Iron [Mass/Vol] 56 ug/dL 41 - 186 ug/dL [facility] Iron binding capacity [Mass/Vol] 287 ug/dL 232 - 386 ug/dL [facility] Iron/TIBC [Molar ratio] 19.5 % 15.0 - 57.0 % [facility] .Urinalysis Microscopic (AO) on 02-04-2023 UA Bacteria Trace Abnormal [facility] ([place]) Comment on above: Performed By: #### P REGU, UA, UAMICAO #### [address] [address] UA RBC 0-5 Abnormal None Seen [facility] ([place]) Comment on above: Performed By: #### P REGU, UA, UAMICAO #### [place] [address] [place], [place] [address] UA Squam Epithelial 0-5 Abnormal None Seen [facility] ([place]) Comment on above: Performed By: #### P REGU, UA, UAMICAO #### [place] [address] [place], [place] [address] UA WBC 0-5 Abnormal None Seen [facility] ([place]) Comment on above: Performed By: #### P REGU, UA, UAMICAO #### [place] [address] [place], [place] [address] LABORATORYOrdered By: [employer] [place] on 02-04-2023 Appearance [...] HCG ( test) Ql (U) Negative Normal [facility] ([place]) Comment on above: Performed By: #### P REGU, UA, UAMICAO #### [address] [address] test (u) int Not detected Invalid Interpretation Code [facility] ([place] Comment on above: Performed By: #### P REGU, UA, UAMICAO #### [address] [address] UAon 02-04-2023 Color (U) Yellow Normal [facility] ([place] Comment on above: Performed By: #### P REGU, UA, UAMICAO #### [address] [address] Glucose (U) [Mass/Vol] Negative Normal Negative [facility] ([place]) Comment on above: Performed By: #### P REGU, UA, UAMICAO #### [address] [address] Ketones Ql (U) Negative Normal Negative [facility] ([place] Comment on above: Performed By: #### P REGU, UA, UAMICAO #### [address] [address] UA Appear Clear Normal Clear [facility] ([place] Comment on above: Performed By: #### P REGU, UA, UAMICAO #### [address] [address] UA Bili Small Abnormal Negative [facility] ([place] Comment on above: Performed By: #### P REGU, UA, UAMICAO #### [address] [place] [address] UA Blood Small Abnormal Negative [facility] ([place] Comment on above: Performed By: #### P REGU, UA, UAMICAO #### [address] [address] UA Leuk Est Trace Abnormal Negative [facility] ([place] Comment on above: Performed By: #### P REGU, UA, UAMICAO #### [place] [address] UA Nitrite Negative Normal Negative [facility] ([place] Comment on above: Performed By: #### P REGU, UA, UAMICAO #### [place] [address] UA pH 5.5 Normal 5.0 - 8.0 [facility] ([place]) Comment on above: Performed By: #### P REGU, UA, UAMICAO #### [place] [address] UA Protein 30 mg/dL Normal Negative [facility] ([place] Comment on above: Performed By: #### P REGU, UA, UAMICAO #### [place] [address] UA Spec Grav >=1.030 Abnormal 1.015-1.025 [facility] ([place] Comment on above: Performed By: #### P REGU, UA, UAMICAO #### [place] [address] UA Specimen Type Clean Catch Normal [facility] ([place]) Comment on above: Performed By: #### P REGU, UA, UAMICAO #### [place] [address] UA Urobilinogen 0.2 E.U./dL Normal 0.2-1.0 [facility] ([place]) Comment on above: Performed By: #### P REGU, UA, UAMICAO #### [place] [address] XR ABDOMEN APon 02-04-2023 XR ABDOMEN AP [...] Date: 02/04/2023 4:03:53 PM Ordering Provider: ISABELLE METZ [facility] ([place]) [facility] JOSESITO Wu 04-0 [facility] XR Foot - left AP and Latera l and obliqueon 12-03-2021 IMPRESSION: Calcaneal enthesopathy. Tape Coater: PSCB Transcribe Date/Time: Dec 03 2021 5:15A Dictated by : CHAPITO TYLER MD This examination was interpreted and the report reviewed and electronically signed by: CHAPITO TYLER MD on Dec 03 2021 5:16AM [facility] DIVISION OF RADIOLOGY * * *Final Report* [...] dorsal calcaneal enthesophyte. DIVISION OF RADIOLOGY Provider, [facility] - 12/03/2021 * * *Final Report* * [...] dorsal calcaneal enthesophyte. IMPRESSION IMPRESSION: Calcaneal enthesopathy. Tape Coater: MARINE Transcribe Date/Time: Dec 03 2021 5:15A Dictated by : CHAPITO TYLER MD This examination was interpreted and the report reviewed and electronically signed by: CHAPITO TYLER MD on Dec 03 2021 5:16AM EST [facility] XR Foot - left AP and Latera l and obliqueOrdered By: Ccf Provider on 12-03-2021 [facility] XR Foot - left AP and Latera l and obliqueon 12-01-2021 Radiology Study observation (narrative) [facility] XR Finger - right AP and Lat eral and obliqueon 08-02-2021 Radiology Study observation (narrative) [facility] IMPRESSION: Negative right thumb radiographs. [facility]ater[facility] Transcribe Date/Time: Aug 02 2021 7:41P Dictated [...] spaces are preserved. DIVISION OF RADIOLOGY Provider, [facility] - 08/02/2021 * * *Final Report* * [...] preserved. IMPRESSION IMPRESSION: Negative right thumb radiographs. Tape Coater: MARINE Transcribe Date/Time: Aug 02 2021 7:41P Dictated by : MIRZA GARCIA MD This examination was interpreted and the report reviewed and electronically signed by: MIRZA GARCIA MD on Aug 02 2021 7:42PM EST [facility] XR Finger - right AP and Lat eral and obliqueOrdered By: Ccf Provider on 08-02-2021 [facility] COVID PCR, SCREENING CONGREG ATEon 02-24-2020 CORONAVIRUS 2019,PCR NOT DETECTED Normal Not Detected [facility] Comment on above: Result Comment: This assay [...] patient management decisions. Fact sheet for providers: https://www.fda.gov/media/649941/download Fact sheet for patients: https://www.fda.gov/media/807370/download This test has received FDA Emergency Use Authorization (EUA) and has been verified by [facility] ([facility]). This test is only authorized for the duration of time that circumstances exist to justify the authorization of the emergency use of in vitro diagnostic tests for the detection of SARS-CoV-2 virus and/or diagnosis of COVID-19 infection under section 564(b)(1) of the Act, 21 U.S.C. 360bbb-3(b)(1), unless the authorization is terminated or revoked sooner. [facility] ([facility]) is certified under CLIA-88 as qualified to perform high complexity testing. This tests analytical performance characteristics have been determined by [facility]. Testing is performed at [facility] is located at [address] [place] [address] (CLIA License #[id number], CAP #[id number]). Performed By: #### C VCLA #### [facility] [place] [address] COVID PCR, SCREENING CONGREG ATEon 02-23-2020 Lab Specimen Source Nasal, Nasopharyngeal Normal [facility] Comment on above: Performed By: #### C VCLA #### [facility] [address] [place] [address] Vital Signs Date Time Vital Sign Value Performing Clinician Facility 02-20-2025 12:46-0400 Body temperature 98.3 [degF] Dr. Jostin Stone DO Work Phone: 1(976)091-726109 [place] [address] 02-20-2025 12:46-0400 Diastolic blood pressure 94 mm[Hg] Dr. Jostin Stone DO Work Phone: 5(670)137-491009 [place] [address] 02-20-2025 12:46-0400 Heart rate 54 /min Dr. Jostin Stone DO Work Phone: 7(054)343-333909 [place] [address] 02-20-2025 12:46-0400 Respiratory rate 14 /min Dr. Jostin Stone DO Work Phone: 2(750)701-646309 [place] [address] 02-20-2025 12:46-0400 SaO2% (BldA) [Mass fraction] 99 % Dr. Jostin Stone DO Work Phone: 7(669)611-819009 [place] [address] 02-20-2025 12:46-0400 Systolic blood pressure 159 mm[Hg] Dr. Jostin Stone DO Work Phone: 2(904)337-529061 [place] [address] 02-20-2025 08:19-0400 Body height 157.[address] Jostin Stone DO Work Phone: 1(534)539-587161 [place] [address] 02-20-2025 08:19-0400 Body mass index (BMI) [Ratio] 35.1 kg/m2 Dr. Jostin Stone DO Work Phone: 0(056)305-773161 [place] [address] 02-20-2025 08:19-0400 Body weight 87.[address] Jostin Stone DO Work Phone: 9(004)375-257209 [place] [address] 02-17-2025 11:25-0400 Body height 157.5 cm [facility] 02-17-2025 11:25-0400 Body mass index (BMI) [Ratio] 35.12 kg/m2 [facility] 02-17-2025 11:25-0400 Body temperature 97.9 [degF] [facility] 02-17-2025 11:25-0400 Body weight 87.09 kg [facility] 02-17-2025 11:25-0400 Diastolic blood pressure 83 mm[Hg] [facility] 02-17-2025 11:25-0400 Heart rate 64 /min [facility] 02-17-2025 11:25-0400 Respiratory rate 14 /min [facility] 02-17-2025 11:25-0400 SaO2% (BldA) [Mass fraction] 97 % [facility] 02-17-2025 11:25-0400 Systolic blood pressure 122 mm[Hg] [facility] 01-30-2025 17:00-0400 Body temperature 98 [degF] Dr. Jostin Stone DO Work Phone: [facility] 01-30-2025 17:00-0400 Diastolic blood pressure 74 mm[Hg] Dr. Jostin Stone DO Work Phone: [facility] 01-30-2025 17:00-0400 Heart rate 61 /min Dr. Jostin Stone DO Work Phone: [facility] 01-30-2025 17:00-0400 Respiratory rate 16 /min Dr. Jostin Stone DO Work Phone: [facility] 01-30-2025 17:00-0400 SaO2% (BldA) [Mass fraction] 99 % Dr. Jostin Stone DO Work Phone: [facility] 01-30-2025 17:00-0400 Systolic blood pressure 128 mm[Hg] Dr. Jostin Stone DO Work Phone: [facility] 01-30-2025 14:30-0400 Body mass index (BMI) [Ratio] 35.4 kg/m2 Dr. Jostin Stone DO Work Phone: [facility] 01-30-2025 14:30-0400 Body weight 87.[address] Jostin Stone DO Work Phone: [facility] 01-30-2025 13:51-0400 Body height 157.[address] Jostin Stone DO Work Phone: [facility] 01-17-2025 23:03-0400 Body temperature 98.2 [degF] Dr. Jostin Stone DO Work Phone: [facility] 01-17-2025 23:03-0400 Diastolic blood pressure 91 mm[Hg] Dr. Jostin Stone DO Work Phone: [facility] 01-17-2025 23:03-0400 Heart rate 68 /min Dr. Jostin Stone DO Work Phone: [facility] 01-17-2025 23:03-0400 Respiratory rate 18 /min Dr. Jostin Stone DO Work Phone: [facility] 01-17-2025 23:03-0400 SaO2% (BldA) [Mass fraction] 95 % Dr. Jostin Stone DO Work Phone: [facility] 01-17-2025 23:03-0400 Systolic blood pressure 146 mm[Hg] Dr. Jostin Stone DO Work Phone: [facility] 01-17-2025 18:27-0400 Body height 157.[address] Jostin Stone DO Work Phone: [facility] 01-17-2025 18:27-0400 Body mass index (BMI) [Ratio] 35.7 kg/m2 Dr. Jostin Stone DO Work Phone: [facility] 01-17-2025 18:27-0400 Body weight 88.[address] Jostin Stone DO Work Phone: [facility] 01-17-2025 18:05-0400 Body mass index (BMI) [Ratio] 35.27 kg/m2 David Alba APRN.ANNUAL GREENHOUSE MANAGER Work Phone: [facility] 01-17-2025 18:05-0400 Body temperature 97 [degF] David Pendlebury 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 OPERATOR.ANNUAL GREENHOUSE MANAGER Work Phone: [facility] 01-17-2025 18:05-0400 Body weight 88.6 kg David Zhaoguille 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 OPERATOR.ANNUAL GREENHOUSE MANAGER Work Phone: [facility] 01-17-2025 18:05-0400 Diastolic blood pressure 84 mm[Hg] David Pendlebury 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 OPERATOR.ANNUAL GREENHOUSE MANAGER Work Phone: [facility] 01-17-2025 18:05-0400 Heart rate 78 /min David Pendlebury 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 OPERATOR.ANNUAL GREENHOUSE MANAGER Work Phone: [facility] 01-17-2025 18:05-0400 Respiratory rate 16 /min David Pendbrainguille 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 OPERATOR.ANNUAL GREENHOUSE MANAGER Work Phone: [facility] 01-17-2025 18:05-0400 SaO2% (BldA) [Mass fraction] 97 % David Zhaoguille 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 OPERATOR.ANNUAL GREENHOUSE MANAGER Work Phone: [facility] 01-17-2025 18:05-0400 Systolic blood pressure 160 mm[Hg] David Pendlebury 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 OPERATOR.ANNUAL GREENHOUSE MANAGER Work Phone: [facility] 12-20-2024 09:09-0400 Body mass index (BMI) [Ratio] 35.75 kg/m2 Myranda Suppan 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 OPERATOR.ANNUAL GREENHOUSE MANAGER Work Phone: [facility] 12-20-2024 09:09-0400 Body temperature 97 [degF] Myranda Suppan 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 OPERATOR.ANNUAL GREENHOUSE MANAGER Work Phone: [facility] 12-20-2024 09:09-0400 Body weight 89.81 kg Myranda Suppan 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 OPERATOR.ANNUAL GREENHOUSE MANAGER Work Phone: [facility] 12-20-2024 09:09-0400 Diastolic blood pressure 70 mm[Hg] Myranda Suppan 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 OPERATOR.ANNUAL GREENHOUSE MANAGER Work Phone: [facility] 12-20-2024 09:09-0400 Heart rate 72 /min Myranda Suppan 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 OPERATOR.ANNUAL GREENHOUSE MANAGER Work Phone: [facility] 12-20-2024 09:09-0400 SaO2% (BldA) [Mass fraction] 94 % Myranda Suppan 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 OPERATOR.ANNUAL GREENHOUSE MANAGER Work Phone: [facility] 12-20-2024 09:09-0400 Systolic blood pressure 128 mm[Hg] Myranda Suppan 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 OPERATOR.ANNUAL GREENHOUSE MANAGER Work Phone: [facility] 11-18-2024 09:43-0400 Body mass index (BMI) [Ratio] 35.93 kg/m2 Myranda Suppan 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 OPERATOR.ANNUAL GREENHOUSE MANAGER Work Phone: [facility] 11-18-2024 09:43-0400 Body temperature 97.5 [degF] Myranda Suppan 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 OPERATOR.ANNUAL GREENHOUSE MANAGER Work Phone: [facility] 11-18-2024 09:43-0400 Body weight 90.27 kg Myranda Suppan 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 OPERATOR.ANNUAL GREENHOUSE MANAGER Work Phone: [facility] 11-18-2024 09:43-0400 Diastolic blood pressure 72 mm[Hg] Myranda Suppan 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 OPERATOR.ANNUAL GREENHOUSE MANAGER Work Phone: [facility] 11-18-2024 09:43-0400 Heart rate 99 /min Myranda Suppan 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 OPERATOR.ANNUAL GREENHOUSE MANAGER Work Phone: [facility] 11-18-2024 09:43-0400 SaO2% (BldA) [Mass fraction] 98 % Myranda Suppan 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 OPERATOR.ANNUAL GREENHOUSE MANAGER Work Phone: [facility] 11-18-2024 09:43-0400 Systolic blood pressure 136 mm[Hg] Myranda Suppan 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 OPERATOR.ANNUAL GREENHOUSE MANAGER Work Phone: [facility] 04-22-2024 13:08-0400 Body mass index (BMI) [Ratio] 36.47 kg/m2 Zheng Luna MD Work Phone: [facility] 04-22-2024 13:08-0400 Body weight 91.63 kg Zheng Luna MD Work Phone: [facility] 04-22-2024 13:08-0400 Diastolic blood pressure 72 mm[Hg] Zheng Luna MD Work Phone: [facility] 04-22-2024 13:08-0400 Systolic blood pressure 110 mm[Hg] Zheng Luna MD Work Phone: [facility] 04-22-2024 10:20-0400 Body height 158.5 cm Jose Alexai DO Work Phone: [facility] 04-22-2024 10:20-0400 Body mass index (BMI) [Ratio] 36.65 kg/m2 Jose Masci DO Work Phone: [facility] 04-22-2024 10:20-0400 Body temperature 98.01 [degF] Jose Alexai DO Work Phone: [facility] 04-22-2024 10:20-0400 Body weight 92.08 kg Jose Masci DO Work Phone: [facility] 04-22-2024 10:20-0400 Diastolic blood pressure 71 mm[Hg] Jose Masci DO Work Phone: [facility] 04-22-2024 10:20-0400 Heart rate 64 /min Jose Masci DO Work Phone: [facility] 04-22-2024 10:20-0400 SaO2% (BldA) [Mass fraction] 97 % Jose Alexai DO Work Phone: [facility] 04-22-2024 10:20-0400 Systolic blood pressure 106 mm[Hg] Jose Masci DO Work Phone: [facility] 04-02-2024 09:17-0400 Body height 158.1 cm Zheng Luna MD Work Phone: [facility] 04-02-2024 09:17-0400 Body mass index (BMI) [Ratio] 36.65 kg/m2 Zheng Luna MD Work Phone: [facility] 04-02-2024 09:17-0400 Body weight 91.63 kg Zheng Luna MD Work Phone: [facility] 04-02-2024 09:17-0400 Diastolic blood pressure 78 mm[Hg] Zheng Luna MD Work Phone: [facility] 04-02-2024 09:17-0400 Heart rate 86 /min Zheng Luna MD Work Phone: [facility] 04-02-2024 09:17-0400 Respiratory rate 16 /min Zheng Luna MD Work Phone: [facility] 04-02-2024 09:17-0400 Systolic blood pressure 116 mm[Hg] Zheng Luna MD Work Phone: [facility] 03-15-2024 08:33-0400 Body mass index (BMI) [Ratio] 37.13 kg/m2 Myranda Suppan 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 OPERATOR.ANNUAL GREENHOUSE MANAGER Work Phone: [facility] 03-15-2024 08:33-0400 Body weight 92.08 kg Myranda Suppan 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 OPERATOR.ANNUAL GREENHOUSE MANAGER Work Phone: [facility] 03-15-2024 08:33-0400 Diastolic blood pressure 70 mm[Hg] Myranda Suppan 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 OPERATOR.ANNUAL GREENHOUSE MANAGER Work Phone: [facility] 03-15-2024 08:33-0400 Heart rate 62 /min Myranda Suppan 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 OPERATOR.ANNUAL GREENHOUSE MANAGER Work Phone: [facility] 03-15-2024 08:33-0400 SaO2% (BldA) [Mass fraction] 95 % Myranda Suppan 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 OPERATOR.ANNUAL GREENHOUSE MANAGER Work Phone: [facility] 03-15-2024 08:33-0400 Systolic blood pressure 104 mm[Hg] Myranda Suppan 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 OPERATOR.ANNUAL GREENHOUSE MANAGER Work Phone: [facility] 02-26-2024 08:19-0400 Body mass index (BMI) [Ratio] 37.31 kg/m2 Myranda Suppan 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 OPERATOR.SAFETY COMPANION Work Phone: [facility] 02-26-2024 08:19-0400 Body weight 92.53 kg Myranda Suppan 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 OPERATOR.SAFETY COMPANION Work Phone: [facility] 02-26-2024 08:19-0400 Diastolic blood pressure 72 mm[Hg] Myranda Suppan 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 OPERATOR.SAFETY COMPANION Work Phone: [facility] 02-26-2024 08:19-0400 Heart rate 81 /min Myranda Suppan 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 OPERATOR.SAFETY COMPANION Work Phone: [facility] 02-26-2024 08:19-0400 Respiratory rate 16 /min Myranda Suppan 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 OPERATOR.SAFETY COMPANION Work Phone: [facility] 02-26-2024 08:19-0400 SaO2% (BldA) [Mass fraction] 97 % Myranda Suppan 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 OPERATOR.SAFETY COMPANION Work Phone: [facility] 02-26-2024 08:19-0400 Systolic blood pressure 112 mm[Hg] Myranda Suppan 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 OPERATOR.SAFETY COMPANION Work Phone: [facility] 02-23-2024 09:02-0400 Body mass index (BMI) [Ratio] 37.28 kg/m2 Zheng Luna MD Work Phone: [facility] 02-23-2024 09:02-0400 Body weight 92.44 kg Zheng Luna MD Work Phone: [facility] 02-23-2024 09:02-0400 Diastolic blood pressure 70 mm[Hg] Zheng Luna MD Work Phone: [facility] 02-23-2024 09:02-0400 Systolic blood pressure 108 mm[Hg] Zheng Luna MD Work Phone: [facility] 01-23-2024 08:37-0400 Body height 157.5 cm Zheng Luna MD Work Phone: [facility] 01-23-2024 08:37-0400 Body mass index (BMI) [Ratio] 37.86 kg/m2 Zheng Luna MD Work Phone: [facility] 01-23-2024 08:37-0400 Body weight 93.89 kg Zheng Luna MD Work Phone: [facility] 01-23-2024 08:37-0400 Diastolic blood pressure 80 mm[Hg] Zheng Luna MD Work Phone: [facility] 01-23-2024 08:37-0400 Heart rate 78 /min Zheng Luna MD Work Phone: [facility] 01-23-2024 08:37-0400 Respiratory rate 16 /min Zheng Luna MD Work Phone: [facility] 01-23-2024 08:37-0400 Systolic blood pressure 116 mm[Hg] Zheng Luna MD Work Phone: [facility] 01-12-2024 10:00-0400 Body mass index (BMI) [Ratio] 38.42 kg/m2 Zheng Luna MD Work Phone: [facility] 01-12-2024 10:00-0400 Body weight 94.71 kg Zheng Luna MD Work Phone: [facility] 01-12-2024 10:00-0400 Diastolic blood pressure 80 mm[Hg] Zheng Luna MD Work Phone: [facility] 01-12-2024 10:00-0400 Systolic blood pressure 116 mm[Hg] Zheng Luna MD Work Phone: [facility] 12-16-2023 08:48-0400 Body weight 92.99 kg Samanta Tomball 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 OPERATOR.ANNUAL GREENHOUSE MANAGER Work Phone: [facility] 12-16-2023 08:48-0400 Diastolic blood pressure 51 mm[Hg] Samanta Olya 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 OPERATOR.ANNUAL GREENHOUSE MANAGER Work Phone: [facility] 12-16-2023 08:48-0400 Systolic blood pressure 78 mm[Hg] Samanta Olya 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 OPERATOR.ANNUAL GREENHOUSE MANAGER Work Phone: [facility] 11-16-2023 12:25-0400 Body temperature 97.7 [degF] David Alba 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 OPERATOR.ANNUAL GREENHOUSE MANAGER Work Phone: [facility] 11-16-2023 12:25-0400 Body weight 94.9 kg [facility] 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 OPERATOR.ANNUAL GREENHOUSE MANAGER Work Phone: [facility] 11-16-2023 12:25-0400 Diastolic blood pressure 80 mm[Hg] [facility] 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 OPERATOR.ANNUAL GREENHOUSE MANAGER Work Phone: [facility] 11-16-2023 12:25-0400 Heart rate 82 /min [facility] 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 OPERATOR.ANNUAL GREENHOUSE MANAGER Work Phone: [facility] 11-16-2023 12:25-0400 Respiratory rate 18 /min [facility] 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 OPERATOR.ANNUAL GREENHOUSE MANAGER Work Phone: [facility] 11-16-2023 12:25-0400 SaO2% (BldA) [Mass fraction] 97 % [facility] 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 OPERATOR.ANNUAL GREENHOUSE MANAGER Work Phone: [facility] 11-16-2023 12:25-0400 Systolic blood pressure 122 mm[Hg] [facility]ises [facility] 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 OPERATOR.ANNUAL GREENHOUSE MANAGER Work Phone: [facility] 02-04-2023 17:36-0400 Blood Pressure Location SANDI REICHFIELD DO [facility] 02-04-2023 17:36-0400 Blood Pressure Method SANDI REICHFIELD D O [facility] 02-04-2023 17:36-0400 Diastolic Blood Pressure Non-Invasive 84 1 SANDI REICHFIELD DO [facility] 02-04-2023 17:36-0400 Heart rate 88 /min SANDI REICHFIELD DO [facility] 02-04-2023 17:36-0400 Respiratory rate 18 /min SANDI REICHFIELD DO [facility] 02-04-2023 17:36-0400 Systolic Blood Pressure Non-Invasive 124 1 SANDI REICHFIELD DO [facility] 02-04-2023 14:52-0400 Blood Pressure Location SANDI REICHFIELD DO [facility] 02-04-2023 14:52-0400 Blood Pressure Method SANDI REICHFIELD D O [facility] 02-04-2023 14:52-0400 Body temperature 97.7 [degF] SANDI REICHFIELD DO [facility] 02-04-2023 14:52-0400 Diastolic Blood Pressure Non-Invasive 79 1 SANDI REICHFIELD DO [facility] 02-04-2023 14:52-0400 Heart rate 99 /min SANDI REICHFIELD DO [facility] 02-04-2023 14:52-0400 Respiratory rate 18 /min SANDI REICHFIELD DO [facility] 02-04-2023 14:52-0400 Systolic Blood Pressure Non-Invasive 120 1 SANDI REICHFIELD DO [facility] 02-21-2022 09:16-0400 Body weight 97.07 kg NA Ferrer PA-C Work Phone: [facility] 02-21-2022 09:16-0400 Diastolic blood pressure 72 mm[Hg] NA Ferrer PA-C Work Phone: [facility] 02-21-2022 09:16-0400 Heart rate 75 /min NA Ferrer PA-C Work Phone: [facility] 02-21-2022 09:16-0400 Respiratory rate 16 /min NA Ferrer PA-C Work Phone: [facility] 02-21-2022 09:16-0400 SaO2% (BldA) [Mass fraction] 99 % NA Ferrer PA-C Work Phone: [facility] 02-21-2022 09:16-0400 Systolic blood pressure 116 mm[Hg] DENNY Ferrer PA-C Work Phone: [facility] 02-07-2022 10:15-0400 Body temperature 98.49 [degF] [facility] 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 OPERATOR.ANNUAL GREENHOUSE MANAGER Work Phone: [facility] 02-07-2022 10:15-0400 Body weight 96.25 kg [facility] 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 OPERATOR.ANNUAL GREENHOUSE MANAGER Work Phone: [facility] 02-07-2022 10:15-0400 Diastolic blood pressure 78 mm[Hg] David Pendlebury 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 OPERATOR.ANNUAL GREENHOUSE MANAGER Work Phone: [facility] 02-07-2022 10:15-0400 Heart rate 76 /min [facility] 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 OPERATOR.ANNUAL GREENHOUSE MANAGER Work Phone: [facility] 02-07-2022 10:15-0400 Respiratory rate 18 /min [facility] 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 OPERATOR.ANNUAL GREENHOUSE MANAGER Work Phone: [facility] 02-07-2022 10:15-0400 SaO2% (BldA) [Mass fraction] 98 % [facility] 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 OPERATOR.ANNUAL GREENHOUSE MANAGER Work Phone: [facility] 02-07-2022 10:15-0400 Systolic blood pressure 112 mm[Hg] [facility] 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 OPERATOR.ANNUAL GREENHOUSE MANAGER Work Phone: [facility] 12-01-2021 10:45-0400 Body temperature 97.39 [degF] Felix Traore MD Work Phone: [facility] 12-01-2021 10:45-0400 Body weight 94.62 kg Felix Traore MD Work Phone: [facility] 12-01-2021 10:45-0400 Diastolic blood pressure 80 mm[Hg] Felix Traore MD Work Phone: [facility] 12-01-2021 10:45-0400 Heart rate 71 /min Felix Traore MD Work Phone: [facility] 12-01-2021 10:45-0400 Respiratory rate 16 /min Felix Traore MD Work Phone: [facility] 12-01-2021 10:45-0400 SaO2% (BldA) [Mass fraction] 98 % Felix Traore MD Work Phone: [facility] 12-01-2021 10:45-0400 Systolic blood pressure 110 mm[Hg] Felix Traore MD Work Phone: [facility] Encounters Encounter Date Encounter Type Care Provider Facility Start: 02-20-2025 End: 02-20-2025 Emergency department patient visit Dr. Jostin Stone DO Work Phone: -Emergency Department Work Phone: Start: 02-17-2025 End: 02-17-2025 Preprocedural examination done Pst 2 [facility] Work Phone: Start: 02-17-2025 End: 02-17-2025 PAT [address] [place] Acc 2 Pre Surgical Testing Comment on above: Preop examination (P rimary Dx); Ovarian mass, right; Mixed hyperlipidemia; Tobacco use disorder; Controlled type 2 diabetes mellitus without complication, without long-term current use of insulin (HCC); Migraine without status migrainosus, not intractable, unspecified migraine type Start: 02-15-2025 ambulatory AARON Riojas y:[facility] Start: 02-15-2025 End: 02-15-2025 Subsequent hospital visit by physician Ct [facility] (I-Stat) Work Phone: Cat Scan Comment on above: Intra-abdominal and pelvic swelling, mass and lump, unspecified site [R19.00] Start: 02-11-2025 Encounter for other [facility]procedural [facility] Start: 02-11-[address] (I-Stat) Work Phone: [facility] Work Phone: Start: 02-10-2025 End: 02-10-2025 Orders Only Aaron Blount MD Work Phone: [facility] Gynecology Oncology Comment on above: Ovarian mass (Primar y Dx) Start: 02-07-2025 End: 02-07-2025 Manual pelvic examination Aaron Blount MD Work Phone: [facility] Gynecology Oncology Comment on above: Intra-abdominal and pelvic swelling, mass and lump, unspecified site (Primary Dx) Start: 02-07-2025 End: 02-07-2025 Telemedicine consultation with patient Aaron Blount MD Work Phone: [facility] Gynecology Oncology Start: 02-07-2025 End: 02-07-2025 ambulatory MYRANDA A SUPPAN Facility:[facility] Start: 02-07-2025 End: 02-07-2025 Emergency department patient visit BHUPENDRA DAVILA DO [facility] Start: 02-04-2025 End: 02-04-2025 ambulatory MYRANDA A SUPPAN Facility:[facility] Start: 02-04-2025 End: 02-04-2025 ambulatory MYRANDA A SUPPAN Facility:[facility] Start: 01-30-2025 End: 01-30-2025 Emergency department patient visit Dr. Jostin Stone DO Work Phone: -Emergency Department Work Phone: Start: 01-18-2025 End: 01-18-2025 Telephone encounter Zheng Luna MD Work Phone: OB/Gynecology Start: 01-18-2025 End: 01-18-2025 ambulatory MYRIAM RIVERA Facility:[facility] Start: 01-17-2025 End: 01-17-2025 Emergency department patient visit Dr. Jostin Stone DO Work Phone: -Emergency Department Work Phone: Start: 01-17-2025 End: 01-17-2025 Office outpatient visit 15 minutes David Alba APRN.CNP Work Phone: [facility] Comment on above: Acute right-sided lo w back pain without sciatica (Primary Dx); Abdominal pain, unspecified abdominal location Start: 01-17-2025 End: 01-17-2025 ambulatory MYRANDA A SUPPAN Facility:[facility] Start: 12-20-2024 End: 12-20-2024 Office outpatient visit 15 minutes Myranda Dallas 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 OPERATOR.ANNUAL GREENHOUSE MANAGER Work Phone: [facility] Comment on above: JESSE (generalized anx iety disorder) (Primary Dx); Anxiety with depression; Controlled type 2 diabetes mellitus without complication, without long-term current use of insulin (HCC); Fatty liver; Panic disorder; Hypomagnesemia Start: 12-20-2024 End: 12-20-2024 ambulatory MYRANDA A SUPPAN Facility:[facility] Start: 11-22-2024 End: 11-23-2024 Follow-up encounter Myranda Dallas 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 OPERATOR.ANNUAL GREENHOUSE MANAGER Work Phone: [facility] [place] Start: 11-20-2024 End: 11-20-2024 Chart abstracting Edvin [facility] Start: 11-18-2024 End: 11-18-2024 ambulatory MYRANDA A SUPPAN Facility:[facility] Start: 11-18-2024 End: 11-18-2024 Office outpatient visit 15 minutes Myranda A Dalyan 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 OPERATOR.ANNUAL GREENHOUSE MANAGER Work Phone: [facility] [place] Comment on above: Palpitations (Primar y Dx); Migraine without aura and without status migrainosus, not intractable; Fatty liver; Depressive disorder; Panic disorder; Anxiety with depression; Pure hypercholesterolemia; Goiter, euthyroid; Controlled type 2 diabetes mellitus without complication, without long-term current use of insulin (HCC); Abrasion; Encounter for screening examination for other mental health and behavioral disorders Start: 11-18-2024 End: 11-18-2024 ambulatory Nurse Intm/Famp Triage [facility] Work Phone: Nurse Phone Triage Comment on above: Dizziness; feeling o f her heart rcing and feeling like something is go Start: 06-24-2024 ambulatory JJ AL Facility: [facility] Start: 06-05-2024 End: 06-07-2024 Ana Maria Smart PA-C Work Phone: [facility] Comment on above: Refill Request Start: 05-26-2024 End: 06-02-2024 E-mail encounter from caregiver [facility] Gynecology Start: 05-26-2024 End: 06-02-2024 Patient encounter procedure [facility] Gynecology Comment on above: Please fax your past [facility] medical records from outside of the [facility]. Start: 04-26-2024 End: 04-26-2024 ambulatory JOSE Shravan TSAI Facility:[facility] Start: 04-25-2024 End: 04-25-2024 Telephone encounter Jose Shravan Tsai DO Work Phone: Hematology/Oncology Comment on above: Results Start: 04-23-2024 End: 04-23-2024 Telephone encounter Zheng Luna MD Work Phone: OB/Gynecology Comment on above: Orders Start: 04-22-2024 End: 04-22-2024 ambulatory ZHENG LUNA Facility:[facility] Start: 04-22-2024 End: 04-22-2024 Patient encounter procedure Zheng Luna MD Work Phone: OB/Gynecology Comment on above: Post-operative state (Primary Dx); Vaginal discharge; Constipation, unspecified constipation type; Chronic pelvic pain in female; DUB (dysfunctional uterine bleeding) Start: 04-22-2024 End: 04-22-2024 ambulatory JOSE TSAI Facility:[facility] Start: 04-22-2024 End: 04-22-2024 ambulatory Jose Shravan Tsai DO Work Phone: Hematology/Oncology Comment on above: Leukocytosis, unspec ified type (Primary Dx); LFT elevation; Lymphocytosis Start: 04-22-2024 End: 04-22-2024 Patient encounter procedure Jose Shravan Tsai DO Work Phone: Hematology/Oncology Start: 04-20-2024 End: 04-21-2024 Emergency department patient visit Lloyd Muller Facility:[facility] Start: 04-19-2024 End: 04-19-2024 ambulatory Zheng Luna MD Work Phone: OB/Gynecology Comment on above: Post Op Start: 04-15-2024 End: 04-15-2024 ambulatory Edmond LADD Facility:[facility] Start: 04-14-2024 Telephone encounter Zheng gates MD Work Phone: OB/Gynecology Comment on above: Medication Problem Start: 04-06-2024 Chart abstracting Edmond sousa PA-C Work Phone: [facility] Start: 04-06-2024 End: 04-06-2024 ambulatory Edmond LADD Facility:[facility] Start: 04-02-2024 Telephone encounter Zheng gates MD Work Phone: OB/Gynecology Comment on above: 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 Start: 04-02-2024 End: 04-02-2024 ambulatory ZHENG LUNA Facility:[facility] Start: 04-02-2024 End: 04-02-2024 Patient encounter procedure Zheng Luna MD Work Phone: OB/Gynecology Comment on above: DUB (dysfunctional u terine bleeding) (Primary Dx); Excessive bleeding in premenopausal period; Class 2 obesity with body mass index (BMI) of 36.0 to 36.9 in adult, unspecified obesity type, unspecified whether serious comorbidity present Start: 03-16-2024 Telephone encounter Myranda Dallas 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 OPERATOR.ANNUAL GREENHOUSE MANAGER Work Phone: [facility] Start: 03-15-2024 Encounter for other preprocedural examination JOSE TSAI [facility] Start: 03-15-2024 End: 03-15-2024 ambulatory MYRANDA DALLAS Facility:[facility] Start: 03-15-2024 End: 03-15-2024 Office outpatient visit 25 minutes Myranda Dallas 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 OPERATOR.ANNUAL GREENHOUSE MANAGER Work Phone: [facility] Comment on above: Hypomagnesemia (Prim misty Dx); Abnormal LFTs; Preop examination Start: 03-15-2024 End: 03-15-2024 Preprocedural examination done Myranda Dallas 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 OPERATOR.ANNUAL GREENHOUSE MANAGER Work Phone: [facility] Start: 03-02-2024 Admission to [facility] Provider OB/Gynecology Comment on above: surgery confirmation Start: 03-02-2024 E-mail encounter fro edmond caregiver [facility] Provider OB/Gynecology Start: 02-27-2024 Telephone encounter Myranda Dallas 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 OPERATOR.SAFETY COMPANION Work Phone: [facility] [place] Comment on above: Results Start: 02-26-2024 End: 02-26-2024 ambulatory MYRANDA DALLAS Facility:[facility] Start: 02-26-2024 End: 02-26-2024 Office outpatient visit 25 minutes Myranda Dallas 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 OPERATOR.SAFETY COMPANION Work Phone: [facility] Comment on above: Anxiety with depress ion (Primary Dx); Controlled type 2 diabetes mellitus without complication, without long-term current use of insulin (HCC); Dysmenorrhea Start: 02-24-2024 Telephone encounter Edmond Ferrer PA-C Work Phone: [facility] Comment on above: Appointment Start: 02-23-2024 End: 02-23-2024 ambulatory ZHENG LUNA Facility:[facility] Start: 02-23-2024 End: 02-23-2024 Patient encounter procedure Zheng Luna MD Work Phone: OB/Gynecology Comment on above: Post-operative state (Primary Dx) Start: 02-11-2024 Documentation procedure Mammog margo Coordinator [facility] Start: 02-11-2024 Letter encounter Mammography Coordinator [facility] Start: 02-10-2024 End: 02-10-2024 Subsequent hospital visit by physician Screen Mammo [facility] Mammogram Start: 02-05-2024 End: 02-05-2024 ambulatory Edmond LADD Facility:[facility] Start: 01-23-2024 End: 01-23-2024 Patient encounter procedure Zheng Luna MD Work Phone: OB/Gynecology Comment on above: Menorrhagia with irr egular cycle (Primary Dx); Endometrial polyp; Visit for pre-operative examination Start: 01-23-2024 End: 01-23-2024 Preprocedural examination done Zheng Luna MD Work Phone: [facility] Start: 01-20-2024 Admission to [facility] Zheng Luna MD Work Phone: OB/Gynecology Comment on above: surgery confirmation Start: 01-20-2024 E-mail encounter fro m caregiver Zheng Luna MD Work Phone: OB/Gynecology Start: 01-15-2024 End: 01-15-2024 ambulatory Samanta Dobson 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 OPERATOR.ANNUAL GREENHOUSE MANAGER Work Phone: OB/Gynecology Comment on above: Irregular bleeding ( Primary Dx) Start: 01-15-2024 End: 01-15-2024 Telemedicine consultation with patient Samanta Dobson 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 OPERATOR.ANNUAL GREENHOUSE MANAGER Work Phone: OB/Gynecology Start: 01-12-2024 End: 01-12-2024 Patient encounter procedure Zheng Luna MD Work Phone: OB/Gynecology Comment on above: Menorrhagia with irr egular cycle (Primary Dx) Start: 01-05-2024 Telephone encounter Samanta marina 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 OPERATOR.ANNUAL GREENHOUSE MANAGER Work Phone: OB/Gynecology Comment on above: Results Start: 12-31-2023 ambulatory Edmond Monson on PA-C Work Phone: [facility] [place] Start: 12-31-2023 End: 12-31-2023 Subsequent hospital visit by physician [facility] 2 Work Phone: Radiology Comment on above: Menorrhagia with irr egular cycle [N92.1] Start: 12-16-2023 End: 12-16-2023 Patient encounter procedure Samanta Ivorycalf 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 OPERATOR.ANNUAL GREENHOUSE MANAGER Work Phone: OB/Gynecology Comment on above: Menorrhagia with irr egular cycle (Primary Dx); Dysmenorrhea Start: 12-07-2023 Refill Edmond Monson on PA-C Work Phone: [facility] [place] Comment on above: Refill Request Start: 11-16-2023 End: 11-16-2023 Office outpatient visit 15 minutes David Alba 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 OPERATOR.ANNUAL GREENHOUSE MANAGER Work Phone: [facility] Comment on above: Viral illness (Prima ry Dx) Start: 10-30-2023 Refill Ronen Champagne MD Work Phone: [facility] [place] Comment on above: Refill Request Start: 04-02-2023 ambulatory Edmond Monson on PA-C Work Phone: [facility] [place] Comment on above: Covid Positive Start: 02-04-2023 End: 02-04-2023 Emergency department patient visit [facility] Facility:B Start: 02-04-2023 End: 02-04-2023 Emergency department patient visit [facility] Start: 01-26-2023 Refill Edmond Monson on PA-C Work Phone: [facility] [place] Comment on above: Refill Request Start: 11-21-2022 Refill Edmond Monson on PA-C Work Phone: [facility] [place] Comment on above: Refill Request Start: 09-18-2022 Refill Edmond Monson on PA-C Work Phone: [facility] [place] Comment on above: Refill Request Start: 07-22-2022 Refill Edmond Monson on PA-C Work Phone: [facility] [place] Comment on above: Refill Request Start: 06-20-2022 Telephone encounter Edmond Monsonon PA-C Work Phone: [facility] [place] Comment on above: Forms Start: 03-14-2022 End: 03-14-2022 Patient encounter procedure Mirza Dsouzabrandon Work Phone: Podiatry Comment on above: Open wound of toe, i nitial encounter (Primary Dx) Start: 03-09-2022 Refill Edmond Monson on PA-C Work Phone: [facility] [place] Comment on above: Refill Request Start: 02-28-2022 End: 02-28-2022 Patient encounter procedure Mirza Daniel Work Phone: Podiatry Comment on above: Onychodystrophy (Chasity lyssa Dx) Start: 02-22-2022 Telephone encounter Edmond Bernabe Ferrer PA-C Work Phone: [facility] Comment on above: Results Start: 02-21-2022 End: 02-21-2022 Patient encounter procedure Edmond Bernabe Ferrer PA-C Work Phone: [facility] Comment on above: Controlled type 2 di abetes mellitus without complication, without long-term current use of insulin (HCC) (Primary Dx); Depressive disorder; Migraine without aura and without status migrainosus, not intractable; Tobacco use disorder; Mixed hyperlipidemia; Viral URI with cough Start: 02-07-2022 End: 02-07-2022 Patient encounter procedure David Alba APRN.ANNUAL GREENHOUSE MANAGER Work Phone: [facility] Comment on above: Viral illness (Prima ry Dx) Start: 01-31-2022 Telephone encounter Mirza Dominique lilianmike Work Phone: Podiatry Comment on above: Results Start: 01-29-2022 Refill Edmond more PA-C Work Phone: [facility] Comment on above: Refill Request Start: 01-25-2022 End: 01-25-2022 Patient encounter procedure Mirza Dsouzamike Work Phone: Podiatry Comment on above: Onychodystrophy (Chasity lyssa Dx); Diminished pulse; Controlled type 2 diabetes mellitus without complication, without long-term current use of insulin (HCC) Start: 12-05-2021 End: 12-05-2021 Subsequent hospital visit by physician [facility] Work Phone: Radiology Start: 12-03-2021 Telephone encounter Lillie Josue APRN.ANNUAL GREENHOUSE MANAGER Work Phone: [facility] Comment on above: Results; Orders Start: 12-01-2021 End: 12-01-2021 Subsequent hospital visit by physician [facility] [place] Work Phone: Radiology Comment on above: Foot pain, left [M79 .672] Start: 12-01-2021 End: 12-01-2021 Patient encounter procedure Felix Traore MD Work Phone: [facility] Comment on above: Foot pain, left (Chasity lyssa Dx) Start: 08-02-2021 End: 08-02-2021 Subsequent hospital visit by physician [facility] Work Phone: Radiology Comment on above: Pain of right thumb [M79.644] Procedures Date Procedure Procedure Detail Performing Clinician Start: 02-20-2025 Computed tomography of abdomen and pelvis with intravenous contrast Dr. Jostin Stone DO Work Phone: Start: 02-20-2025 Urnls dip stick/tabl et reagent auto microscopy Dr. Jostin Stone DO Work Phone: Start: 02-20-[address] Jostin Stone DO Work Phone: Start: 02-04-2025 Antibody screen [facility]AL[facility] CELE[facility] Comment on above: Order Comment: Speci men Type: BLOOD SPECIMEN Ordering Facility: [facility] Address: [address] [place] [address] Performed By: #### T [id number] #### [facility] CLIA [id number] 1 [place] [address] [place] Start: 01-30-2025 Urnls [...] et rgnt auto w/o microscopy David Alba 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 OPERATOR.ANNUAL GREENHOUSE MANAGER Work Phone: Start: 11-18-2024 Ecg routine ecg w/le ast 12 lds i&r only Myranda Dallas 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 OPERATOR.ANNUAL GREENHOUSE MANAGER Work Phone: Start: 04-06-2024 Hemoglobin A1c/Hemoglobin.total in Blood [facility] Provider Start: 01-12-2024 UA DIP,URINE HCG (POC) Zheng Luna MD Work Phone: Start: 12-05-2021 End: 12-05-2021 Mammography Ronen Champagne MD Work Phone: Start: 12-01-2021 Radex foot complete minimum 3 views Felix Traore MD Work Phone: Start: 08-02-2021 Radex fingr minimum 2 views Mel Callahan 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 OPERATOR.ANNUAL GREENHOUSE MANAGER Work Phone: Start: 05-08-2021 Mammography Felix smith MD Work Phone: Start: 08-28-2018 Colonoscopy Felix smith MD Work Phone: section SANDI VALDEZ FIELD DO Cholecystectomy SANDI REGISSELL IELD DO Tonsillectomy and adenoidectomy [facility] Plan of Treatment Date Care Activity Detail Author Start: 02-04-2030 Screening for malign ant neoplasm of cervix Cervical Cancer Screening [facility] Start: 08-28-2028 Colonoscopy COLONOSCOPY [facility] Start: 08-28-2028 COLORECTAL CANCER SCREENING COLORECTAL CANCER SCREENING [facility] Start: 08-28-2028 Screening for malign ant neoplasm of colon [facility] Start: 06-06-2027 Urine microalbumin profile [facility] Start: 04-06-2026 HPV TESTING HPV TESTING [facility] Start: 04-06-2026 PAP TESTING PAP TESTING [facility] Start: 04-06-2026 Screening for malign ant neoplasm of cervix [facility] Start: 12-20-2025 Annual PCP Team Labor Contract Analyst darryl Disease Visit Annual PCP Team Chronic Disease Visit [facility] Start: 12-20-2025 Diabetic foot examination Diabetic F oot Exam [facility] Start: 11-18-2025 Annual PCP Team Labor Contract Analyst darryl Disease Visit Annual PCP Team Chronic Disease Visit [facility] Start: 11-18-2025 Anxiety Screening Anxiety Screening [facility] Start: 11-18-2025 Hepatitis B surface antibody level LDL Cholesterol [facility] Start: 06-21-2025 End: 06-21-2025 Patient encounter procedure 06/21/2025 8:40 AM EDT Office Visit [facility] [place] [address] [place], [place] [id number] Myranda Dallas APRN.ANNUAL GREENHOUSE MANAGER [address] [place], [place] [id number] 6 month exam DM, Depression, multiple co-morbities. Provider requests 40 min [facility] Comment on above: 6 month exam DM, Dep ression, multiple co-morbities. Provider requests 40 min Start: 06-11-2025 Glaucoma screening Dilated Retinal E xam [facility] Start: 03-21-2025 End: 06-20-2025 CBC W Auto Differential panel - Blood COMPLETE BLOOD COUNT AND DIFFERENTIAL Lab Routine Controlled type 2 diabetes mellitus without complication, without long-term current use of insulin (HCC) Expected: 03/21/2025, Expires: 06/20/2025 [facility] Comment on above: Expected: 03/21/2025 , Expires: 06/20/2025 Start: 03-21-2025 End: 06-20-2025 Comprehensive metabolic 2000 panel - Serum or Plasma COMPREHENSIVE METABOLIC PANEL Lab Routine Fatty liver Expected: 03/21/2025, Expires: 06/20/2025 [facility] Comment on above: Expected: 03/21/2025 , Expires: 06/20/2025 Start: 03-21-2025 End: 06-20-2025 Gamma glutamyl transferase [Enzymatic activity/volume] in Serum or Plasma GGT Lab Routine Fatty liver Expected: 03/21/2025, Expires: 06/20/2025 [facility] Comment on above: Expected: 03/21/2025 , Expires: 06/20/2025 Start: 03-21-2025 End: 06-20-2025 Hemoglobin A1c in Blood HEMOGLOBIN A1C Lab Routine Controlled type 2 diabetes mellitus without complication, without long-term current use of insulin (HCC) Expected: 03/21/2025, Expires: 06/20/2025 [facility] Work Phone: Comment on above: Expected: 03/21/2025 , Expires: 06/20/2025 Start: 03-21-2025 End: 06-20-2025 Magnesium [Mass/volume] in Serum or Plasma MAGNESIUM Lab Routine Hypomagnesemia Expected: 03/21/2025, Expires: 06/20/2025 [facility] Comment on above: Expected: 03/21/2025 , Expires: 06/20/2025 Start: 03-21-2025 End: 06-20-2025 Microalbumin/Creatinine [Mass Ratio] in Urine ALBUMIN/CREATININE RATIO, URINE Lab Routine Controlled type 2 diabetes mellitus without complication, without long-term current use of insulin (HCC) Expected: 03/21/2025, Expires: 06/20/2025 [facility] Comment on above: Expected: 03/21/2025 , Expires: 06/20/2025 Start: 03-16-2025 End: 03-16-2025 ambulatory 03/16/2025 11:30 AM EDT Visit (SP) Office [facility] [address] [place], [place] [id number] Aaron Blount MD [address] [place] [address] Post Op [facility] Comment on above: Post Op Start: 02-25-2025 Hepatitis B screening Urine Al bumin:Creatinine Ratio [facility] Start: 02-25-2025 End: 02-25-2025 Admission to same day surgery center 02/25/2025 11:45 AM EDT - 02/25/2025 5:00 PM EDT Surgery [address] [address] Aaron Blount MD [address] [place], [place] [id number] LAPAROSCOPIC HYSTERECTOMY TOTAL FOR UTERUS 250G OR LESS [facility] Comment on above: LAPAROSCOPIC HYSTERE CTOMY TOTAL FOR UTERUS 250G OR LESS Start: 02-25-2025 End: 02-25-2025 Laparoscopy w total hysterectomy uterus 250 gm/< LAPAROSCOPIC HYSTERECTOMY TOTAL FOR UTERUS 250G OR LESS Ovarian mass 02/25/2025 11:45 AM EDT [facility] Start: 02-25-2025 End: 02-25-2025 Laparoscopy w/rmvl adnexal structures [facility] Start: 02-25-2025 End: 02-25-2025 Pelvic examination w/anesthesia other than local EXAM UNDER ANESTHESIA PELVIC / VAGINAL Ovarian mass 02/25/2025 11:45 AM EDT [facility] Start: 02-25-2025 Subsequent hospital visit by physician [facility] Comment on above: Ovarian mass [N83.8] Start: 02-25-2025 End: 02-25-2025 Transfusion blood/blood components TRANSFUSION BLOOD Ovarian mass 02/25/2025 11:45 AM EDT [facility] Start: 02-20-2025 [facility] Start: 02-18-2025 Hemoglobin A1c measurement HbA1C [facility] Start: 02-17-2025 End: 02-17-2025 ambulatory 02/17/2025 11:20 AM EDT PAT Pre Surgical Testing [address] [place] [address] [facility] Comment on above: [facility] Start: 02-15-2025 End: 02-15-2025 Patient encounter procedure Cat Scan Comment on above: Dx: Intra-abdominal and pelvic swelling, mass and lump, unspecified site [R19.00] Start: 02-09-2025 Screening for malign ant neoplasm of breast Mammogram Screening [facility] Start: 01-30-2025 [facility] Start: 01-18-2025 End: 01-18-2025 Patient encounter procedure 01/18/2025 12:50 PM EDT Office Visit OB/Gynecology [address] [place], [place] [id number] Myriam Rivera MD [address] [place] [address] F/U ER-ORADS 5 ovarian cyst/ possible referral to sales representative cash registers onc OB/Gynecology Comment on above: F/U ER-ORADS 5 ovari an cyst/ possible referral to sales representative cash registers onc Start: 01-17-2025 [facility] Start: 12-20-2024 End: 12-20-2024 Patient encounter procedure 12/20/2024 9:00 AM EDT Office Visit [facility] [address] [place] [address] Myranda Dallas, 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 OPERATOR.ANNUAL GREENHOUSE MANAGER [address] [place] [address] 4 week anxiety/depression f/u [facility] Comment on above: 4 week anxiety/depre ssion f/u Start: 11-18-2024 End: 02-17-2025 Cobalamin (Vitamin B12) [Mass/volume] in Serum or Plasma [facility] Comment on above: Expected: 11/18/2024 , Expires: 02/17/2025 Start: 11-18-2024 End: 02-17-2025 Comprehensive metabolic 2000 panel - Serum or Plasma [facility] Comment on above: Expected: 11/18/2024 , Expires: 02/17/2025 Start: 11-18-2024 End: 02-17-2025 Hemoglobin A1c in Blood [facility] Comment on above: Expected: 11/18/2024 , Expires: 02/17/2025 Start: 11-18-2024 End: 02-17-2025 LIPID PANEL, NONFASTING [facility] Work Phone: Comment on above: Expected: 11/18/2024 , Expires: 02/17/2025 Start: 11-18-2024 End: 02-17-2025 Magnesium [Mass/volume] in Serum or Plasma [facility] Comment on above: Expected: 11/18/2024 , Expires: 02/17/2025 Start: 11-18-2024 End: 02-17-2025 Thyrotropin [Units/volume] in Serum or Plasma [facility] Comment on above: Expected: 11/18/2024 , Expires: 02/17/2025 Start: 10-07-2024 Hemoglobin A1c measurement HbA1C [facility] Start: 09-16-2024 End: 09-16-2024 Patient encounter procedure 09/16/2024 8:20 AM EST Office Visit [facility] [address] [place] [address] Myranda Dallas APRN.ANNUAL GREENHOUSE MANAGER [address] [place] [address] 6 month follow up [facility] Comment on above: 6 month follow up Start: 09-15-2024 Annual PCP Team Labor Contract Analyst darryl Disease Visit Annual PCP Team Chronic Disease Visit [facility] Start: 09-15-2024 Hepatitis B screening Urine Al bumin:Creatinine Ratio [facility] Start: 09-15-2024 Hepatitis B surface antibody level LDL Cholesterol [facility] Start: 08-27-2024 Hemoglobin A1c measurement HbA1C [facility] Start: 05-02-2024 Covid-19 Vaccine ( season) Covid-19 Vaccine () [facility] Start: 05-02-2024 Influenza vaccination C [facility] Start: 04-26-2024 End: 04-26-2024 Patient encounter procedure 04/26/2024 3:40 PM EDT Office Visit OB/Gynecology [address] [place] [address] Zheng Luna MD [address] [place] [address] Post Op OB/Gynecology Comment on above: Post Op Start: 04-26-2024 End: 04-26-2024 ambulatory 04/26/2024 8:30 AM EDT Results [facility] [address] [place] [address] lab [facility] Comment on above: lab Start: 04-25-2024 End: 07-25-2024 HFE gene targeted mutation analysis in Blood or Tissue by Molecular genetics method HFE (HEMOCHROMATOSIS) Lab Routine Elevated ferritin Expected: 04/25/2024, Expires: 07/25/2024 [facility] Work Phone: Comment on above: Expected: 04/25/2024 , Expires: 07/25/2024 Start: 04-22-2024 End: 07-22-2024 C reactive protein [Mass/volume] in Serum or Plasma [facility] Comment on above: Expected: 04/22/2024 , Expires: 07/22/2024 Start: 04-22-2024 End: 07-22-2024 Chronic hepatitis differentiation between hepatitis B and C virus panel - Serum or Plasma [facility] Work Phone: Comment on above: Expected: 04/22/2024 , Expires: 07/22/2024 Start: 04-22-2024 End: 07-22-2024 Ferritin [Mass/volume] in Serum or Plasma [facility] Comment on above: Expected: 04/22/2024 , Expires: 07/22/2024 Start: 04-22-2024 End: 07-22-2024 FLOW CYTOMETRY FOR LEUKEMIA/LYMPHOMA (FCLL) [facility] Comment on above: Expected: 04/22/2024 , Expires: 07/22/2024 Start: 04-22-2024 End: 04-22-2024 Patient encounter procedure 04/22/2024 1:10 PM EDT Office Visit OB/Gynecology [address] [place] [address] Zheng Luna MD [address] [place] [address] Post Op OB/Gynecology Comment on above: Post Op Start: 04-22-2024 End: 04-22-2024 ambulatory 04/22/2024 10:10 AM EDT Visit (SP) Office Hematology/Oncology [address] [place] [address] Jose Tsai DO [address] [place] [address] TRANSIT DEPARTMENT CLERK/LEUKOCYTOSIS/REF MYRANDA DALLAS ANNUAL GREENHOUSE MANAGER* Hematology/Oncology Comment on above: TRANSIT DEPARTMENT CLERK/LEUKOCYTOSIS/REF MYRANDA DALLAS ANNUAL GREENHOUSE MANAGER* Start: 04-22-2024 End: 04-22-2024 [facility] visit new patient 04/22/2024 10:10 AM EDT Visit (SP) Office Hematology/Oncology [address] [place] [address] Jose Tsai DO [address] [place] [address] New Patient. DX. Leukocytosis, unspecified type [D72.829] PAtient wanting this day and time Hematology/Oncology Comment on above: New Patient. DX. Shaun kocytosis, unspecified type [D72.829] PAtient wanting this day and time Start: 04-02-2024 End: 04-02-2024 Patient encounter procedure 04/02/2024 9:20 AM EDT Office Visit OB/Gynecology [address] [place] [address] Zheng Luna MD [address] [place] [address] surgery 04/15 @[facility] OB/Gynecology Comment on above: surgery 04/15 @[facility] Start: 03-15-2024 End: 06-14-2024 CBC W Auto Differential panel - Blood [facility] Comment on above: Expected: 03/15/2024 , Expires: 06/14/2024 Start: 03-15-2024 End: 06-14-2024 Comprehensive metabolic 2000 panel - Serum or Plasma [facility] Comment on above: Expected: 03/15/2024 , Expires: 06/14/2024 Start: 03-15-2024 Hemoglobin A1c measurement HbA1C [facility] Start: 03-15-2024 End: 06-14-2024 Magnesium [Mass/volume] in Serum or Plasma [facility] Work Phone: Comment on above: Expected: 03/15/2024 , Expires: 06/14/2024 Start: 03-15-2024 End: 03-15-2024 Patient encounter procedure [facility] Comment on above: 6 mo follow up 6 mo follow up-needs medical clearance for hysterectomy Start: 03-05-2024 End: 03-05-2024 Patient encounter procedure 03/05/2024 10:50 AM EDT Office Visit OB/Gynecology [address] [place] [address] Zheng Luna MD [address] [place] [address] Post Op OB/Gynecology Comment on above: Post Op Start: 02-26-2024 End: 05-27-2024 CBC W Auto Differential panel - Blood [facility] Comment on above: Expected: 02/26/2024 , Expires: 05/27/2024 Start: 02-26-2024 End: 05-27-2024 Comprehensive metabolic 2000 panel - Serum or Plasma [facility] Comment on above: Expected: 02/26/2024 , Expires: 05/27/2024 Start: 02-26-2024 End: 05-27-2024 Hemoglobin A1c in Blood [facility] Work Phone: Comment on above: Expected: 02/26/2024 , Expires: 05/27/2024 Start: 02-26-2024 End: 05-27-2024 Magnesium [Mass/volume] in Serum or Plasma [facility] Comment on above: Expected: 02/26/2024 , Expires: 05/27/2024 Start: 02-26-2024 End: 05-27-2024 Microalbumin/Creatinine [Mass Ratio] in Urine [facility] Comment on above: Expected: 02/26/2024 , Expires: 05/27/2024 Start: 02-26-2024 End: 05-27-2024 Thyrotropin [Units/volume] in Serum or Plasma [facility] Comment on above: Expected: 02/26/2024 , Expires: 05/27/2024 Start: 02-23-2024 End: 02-23-2024 Patient encounter procedure 02/23/2024 9:20 AM EDT Office Visit OB/Gynecology [address] [place] [address] Zheng Luna MD [address] [place] [address] Post Op OB/Gynecology Comment on above: Post Op Start: 02-10-2024 End: 02-10-2024 Patient encounter procedure 02/10/2024 1:10 PM EDT Appointment Mammogram [address] [place] [address] Encounter for screening mammogram for breast cancer [Z12.31] Mammogram Comment on above: Encounter for screen ing mammogram for breast cancer [Z12.31] Start: 01-23-2024 End: 01-23-2024 Patient encounter procedure 01/23/2024 8:40 AM EDT Office Visit OB/Gynecology [address] [place], [place] [id number] Zheng Luna MD [address] [place] [id number] surgery 02/05/2024- patient needed early childhood associate appointment OB/Gynecology Comment on above: surgery 02/05/2024- pa tient needed early childhood associate appointment Start: 11-16-2023 End: 11-30-2023 COVID & INFLUENZA A/B & RSV NAAT, ROUTINE COVID & INFLUENZA A/B & RSV NAAT, ROUTINE Microbiology Routine Viral illness Expected: 11/16/2023, Expires: 11/30/2023 [facility] Work Phone: Comment on above: Expected: 11/16/2023 , Expires: 11/30/2023 Start: 05-02-2023 Covid-19 Vaccine ( season) Covid-19 Vaccine ( season) [facility] Start: 05-02-2023 Influenza vaccination C [facility] Start: 02-21-2023 ANNUAL PCP TEAM BACTERIOLOGIST DAIRY DARRYL DISEASE VISIT ANNUAL PCP TEAM CHRONIC DISEASE VISIT [facility] Start: 02-21-2023 Hepatitis B screening URINE AL BUMIN:CREATININE RATIO [facility] Start: 02-21-2023 Hepatitis B surface antibody level LDL CHOLESTEROL [facility] Start: 01-25-2023 3 comp foot exam completed DIABETIC FOOT EXAM [facility] Start: 01-25-2023 Diabetic foot examination Diabetic F oot Exam [facility] Start: 12-05-2022 Mammography MAMMOGRAM [facility] Start: 12-05-2022 Screening for malign ant neoplasm of breast Mammogram Screening [facility] Start: 10-20-2022 Glaucoma screening Dilated Retinal E xam [facility] Start: 10-20-2022 Hepatitis C antibody , confirmatory test DILATED RETINAL EXAM [facility] Start: 08-23-2022 ANNUAL PCP TEAM BACTERIOLOGIST DAIRY DARRYL DISEASE VISIT ANNUAL PCP TEAM CHRONIC DISEASE VISIT [facility] Start: 08-23-2022 End: 10-23-2022 CBC panel - Blood by Automated count CBC Lab Routine Controlled type 2 diabetes mellitus without complication, without long-term current use of insulin (HCC) Depressive disorder Expected: 08/23/2022, Expires: 10/23/2022 [facility] Work Phone: Comment on above: Expected: 08/23/2022 , Expires: 10/23/2022 Start: 08-23-2022 End: 10-23-2022 Comprehensive metabolic 2000 panel - Serum or Plasma COMP METABOLIC PANEL Lab Routine Controlled type 2 diabetes mellitus without complication, without long-term current use of insulin (HCC) Depressive disorder Mixed hyperlipidemia Expected: 08/23/2022, Expires: 10/23/2022 [facility] Work Phone: Comment on above: Expected: 08/23/2022 , Expires: 10/23/2022 Start: 08-23-2022 End: 10-23-2022 Hemoglobin A1c in Blood HGB A1C Lab Routine Controlled type 2 diabetes mellitus without complication, without long-term current use of insulin (HCC) Expected: 08/23/2022, Expires: 10/23/2022 [facility] Work Phone: Comment on above: Expected: 08/23/2022 , Expires: 10/23/2022 Start: 08-23-2022 Hemoglobin A1c/Hemoglobin.total in Blood HBA1C [facility] Start: 08-23-2022 HEPATITIS C SCREENING HEPATITIS C SC NEAL [facility] Comment on above: Postponed from 01/04 (Declined at this time) Start: 08-23-2022 HIV SCREENING HIV SCREENING [facility] Comment on above: Postponed from 01/04 (Declined at this time) Start: 08-23-2022 End: 10-23-2022 Lipid 1996 panel - Serum or Plasma LIPID PANEL BASIC Lab Routine Mixed hyperlipidemia Expected: 08/23/2022, Expires: 10/23/2022 [facility] Work Phone: Comment on above: Expected: 08/23/2022 , Expires: 10/23/2022 Start: 08-17-2022 Hepatitis B surface antibody level LDL CHOLESTEROL [facility] Start: 05-25-2022 End: 07-25-2022 Comprehensive metabolic 2000 panel - Serum or Plasma COMP METABOLIC PANEL Lab Routine Controlled type 2 diabetes mellitus without complication, without long-term current use of insulin (HCC) Elevated liver enzymes Expected: 05/25/2022, Expires: 07/25/2022 [facility] Work Phone: Comment on above: Expected: 05/25/2022 , Expires: 07/25/2022 Start: 05-25-2022 End: 07-25-2022 Hemoglobin A1c in Blood HGB A1C Lab Routine Controlled type 2 diabetes mellitus without complication, without long-term current use of insulin (HCC) Expected: 05/25/2022, Expires: 07/25/2022 [facility] Work Phone: Comment on above: Expected: 05/25/2022 , Expires: 07/25/2022 Start: 05-08-2022 Mammography MAMMOGRAM [facility] Start: 05-02-2022 Influenza vaccination C [facility] Start: 05-01-2022 COVID-19 VACCINE (5 - Booster for Moderna series) COVID-19 VACCINE (5 - Booster for Moderna series) [facility] Start: 05-01-2022 COVID-19 VACCINE (5 - Moderna series) COVID-19 VACCINE (5 - Moderna series) [facility] Start: 02-15-2022 Hemoglobin A1c/Hemoglobin.total in Blood HBA1C [facility] Start: 11-07-2020 Hepatitis B screening URINE AL BUMIN:CREATININE RATIO [facility] Start: 11-03-2020 3 comp foot exam completed DIABETIC FOOT EXAM [facility] Start: 06-05-2010 PNEUMOCOCCAL (2 - PCV) PNEUMOCOCCAL (2 - PCV) [facility] Start: 06-05-2010 Pneumococcal vaccination Pneum ococcal Vaccine (2 of 2 - PCV) [facility] Start: 01-05-2000 HEPATITIS B (1 of 3 - Risk 3-dose series) HEPATITIS B (1 of 3 - Risk 3-dose series) [facility] Start: 01-05-2000 Hepatitis B Vaccine (1 of 3 - 19+ 3-dose series) Hepatitis B Vaccine (1 of 3 - 19+ 3-dose series) [facility] Start: 1999 Anxiety Screening Anxiety Screening [facility] Start: 1999 HEPATITIS C SCREENING HEPATITIS C [facility] Start: 1999 Hepatitis C screening Hepatitis C [facility] Start: 1999 HIV SCREENING HIV SCREENING [facility] Start: 1999 HIV screening HIV Screening [facility] Start: 1981 HEPATITIS B (1 of 3 - 3-dose series) HEPATITIS B (1 of 3 - 3-dose series) [facility] Start: 1981 Hepatitis B Vaccine (1 of 3 - 3-dose series) Hepatitis B Vaccine (1 of 3 - 3-dose series) [facility] BACTERIAL VAGINOSIS NAAT BACTERI AL VAGINOSIS NAAT Lab Routine Vaginal discharge 04/22/2024 1:40 PM [facility] Work Phone: WILLY/TRICHOMONAS NAAT WILLY /TRICHOMONAS NAAT Lab Routine Vaginal discharge 04/22/2024 1:40 PM [facility] CBC W Auto Different ial panel - Blood COMPLETE BLOOD COUNT AND DIFFERENTIAL Lab Routine Migraine without aura and without status migrainosus, not intractable Palpitations Panic disorder Anxiety with depression 11/18/2024 10:34 AM EDT [facility] End: 03-09-2026 CT Abdomen and Pelvis W contrast IV CT ABD/PEL W IVCON Radiology Routine Intra-abdominal and pelvic swelling, mass and lump, unspecified site 1 Occurrences starting 02/07/2025 until 03/09/2026 [facility] Work Phone: Comment on above: 1 Occurrences starti ng 02/07/2025 until 03/09/2026 CT Abdomen and Pelvi s W contrast IV CT ABD/PEL W IVCON Radiology Routine Intra-abdominal and pelvic swelling, mass and lump, unspecified site 02/15/2025 11:12 AM EDT [facility] Work Phone: End: 03-09-2026 CT Chest W contrast IV CT CHEST W IVCON Radiology Routine Intra-abdominal and pelvic swelling, mass and lump, unspecified site 1 Occurrences starting 02/07/2025 until 03/09/2026 [facility] Comment on above: 1 Occurrences starti ng 02/07/2025 until 03/09/2026 CT Chest W contrast IV CT CHEST W IVCON Radiology Routine Intra-abdominal and pelvic swelling, mass and lump, unspecified site 02/15/2025 11:12 AM EDT [facility] End: 01-29-2025 DBT Breast - bilateral screening KEVAN SCREENING W ALVARO Radiology Routine 1 Occurrences starting 12/31/2023 until 01/29/2025 [facility] Work Phone: Comment on above: 1 Occurrences starti ng 12/31/2023 until 01/29/2025 DBT Breast - bilater al screening KEVAN SCREENING W ALVARO Radiology Routine 02/10/2024 1:38 PM EDT [facility] Work Phone: ECG COMPLETE ECG COMPLETE ECG Routine Palpitations 11/18/2024 9:56 AM EDT [facility] Endometrial bx w/wo endocervix bx w/o dilat spx ENDOMETRIAL BIOPSY Procedures Routine Menorrhagia with irregular cycle Ordered: 01/12/2024 [facility] Work Phone: Comment on above: Ordered: 01/12/2024 Endometrial bx w/wo endocervix bx w/o dilat spx ENDOMETRIAL BIOPSY Procedures Routine Menorrhagia with irregular cycle Ordered: 01/08/2024 [facility] Work Phone: Comment on above: Ordered: 01/08/2024 Influenza virus A an d B RNA and SARS-CoV-2 (COVID-19) N gene panel - Respiratory specimen by MALIK with probe detection COVID WITH FLUA+B, ROUTINE Microbiology Routine Viral illness 02/07/2022 10:28 AM EDT [facility] Work Phone: Laparoscopy w total hysterectomy uterus 250 gm/< LAPAROSCOPIC HYSTERECTOMY TOTAL FOR UTERUS 250G OR LESS Ovarian mass AK OR Laparoscopy w/rmvl adnexal structures AK OR Patient Education [facility] Work Phone: Patient referral [facility] Work Phone: Pelvic examination w/anesthesia other than local EXAM UNDER ANESTHESIA PELVIC / VAGINAL Ovarian mass AK OR End: 01-25-2023 [facility]K [facility]K [facility] Vascular Lab Routine Onychodystrophy Diminished pulse Controlled type 2 diabetes mellitus without complication, without long-term current use of insulin (HCC) 1 Occurrences starting 01/25/2022 until 01/25/2023 [facility] Work Phone: Comment on above: 1 Occurrences starti ng 01/25/2022 until 01/25/2023 SURGICAL PATHOLOGY SURGICAL PATH OLOGY Lab Routine Menorrhagia with irregular cycle 01/12/2024 10:26 AM EDT [facility] Transfusion blood/bl ood components TRANSFUSION BLOOD Ovarian mass AK OR Unlisted laparoscopi c px abd pertoneum & omentum LAPAROSCOPY REMOVAL FOREIGN BODY IN OMENTUM/ABDOMEN Ovarian mass AK OR Urine test visual color cmprsn meths HCG QUAL UR B/O Lab Routine Menorrhagia with irregular cycle Ordered: 01/12/2024 [facility] Comment on above: Ordered: 01/12/2024 End: 01-14-2025 US Pelvis transvaginal US FEMALE PELVIS TRANSVAG Radiology Routine Menorrhagia with irregular cycle 1 Occurrences starting 12/16/2023 until 01/14/2025 [facility] Work Phone: Comment on above: 1 Occurrences starti ng 12/16/2023 until 01/14/2025 US Pelvis transvaginal US FEMALE PELVIS TRANSVAG Radiology Routine Menorrhagia with irregular cycle 12/31/2023 9:06 AM EDT [facility] Work Phone: XR FOOT GENERAL 3V AP/LAT/OBL LEFT XR FOOT GENERAL 3V AP/LAT/OBL LEFT Radiology Routine Foot pain, left 12/01/2021 11:39 AM EDT [facility] Work Phone: [facility] Immunizations Immunization Date Immunization Notes Care Provider [facility] 06-22-2020 influenza virus vacc ine, unspecified formulation Felix Traore MD Work Phone: [facility] 06-16-2019 influenza virus vacc ine, unspecified formulation Felix Traore MD Work Phone: [facility] 06-18-2018 influenza virus vacc toney, unspecified formulation Felix Traore MD Work Phone: [facility] 06-01-2018 influenza, injectabl e, quadrivalent, preservative free Dr. Jostin Stone DO Work Phone: [facility] 06-01-2018 influenza, seasonal, injectable, preservative free Felix Traore MD Work Phone: [facility] 06-06-2017 influenza, injectabl e, quadrivalent, contains preservative Felix Traore MD Work Phone: [facility] 06-06-2017 tetanus toxoid, redu geneva diphtheria toxoid, and acellular pertussis vaccine, adsorbed Felix Traore MD Work Phone: [facility] 06-05-2016 influenza, injectabl e, quadrivalent, contains preservative Felix Traore MD Work Phone: [facility] 06-01-2015 influenza, seasonal, injectable Felix Traore MD Work Phone: [facility] 06-07-2011 influenza virus vacc ine, unspecified formulation Felix Traore MD Work Phone: [facility] 06-25-2010 influenza virus vacc ine, unspecified formulation Felix Traore MD Work Phone: [facility] 06-05-2009 influenza virus vacc ine, unspecified formulation Felix Traore MD Work Phone: [facility] Work Phone: 06-05-2009 pneumococcal polysaccharide vaccine, 23 valent Felix Traore MD Work Phone: [facility] Work Phone: 07-02-2004 tetanus and diphther ia toxoids, adsorbed, preservative free, for adult use (2 Lf of tetanus toxoid and 2 Lf of diphtheria toxoid) Felix Traore MD Work Phone: [facility] Work Phone: Payers Date Payer Category Payer Unknown MMO MMO [employer] PPO [id number] 2023-Present [phone] [address] [place] [address] PPO [id number] 2023 Unknown [id number] 2023 Self-pay 2020 Private Health Insurance [employer] PPO [id number] 2020-Present [phone] [address] [place] [address] PPO [id number] 2020 Private Health Insurance [id number] 1980 Unknown [id number] 1980 Unknown [id number] 1980 Unknown [id number] Unknown [id number] Unknown [id number] Unknown [id number] Unknown [id number] Unknown [id number] Unknown [id number] Social History Date Type Detail Facility Start: 11-04-2019 End: 04-22-2024 Tobacco smoking status NHIS Ex-smoker [facility] Work Phone: Start: 09-10-2010 End: 09-10-2013 History of tobacco use Current smoker [facility] Work Phone: Start: 09-10-2010 End: 09-10-2013 History of tobacco use Cigarette Smoker [facility] Work Phone: Start: 11-04-2019 End: 09-15-2023 Cigarettes smoked current (pack per day) - Reported 0.3 [facility] Start: 11-04-2019 End: 04-22-2024 Tobacco use and exposure Smokeless tobacco non-user [facility] Work Phone: Start: 12-01-2021 End: 02-17-2025 Alcohol intake Current non-drinker of alcohol (finding) [facility] Start: 06-23-2020 End: 02-21-2022 History SDOH Alcohol Frequency 1 [facility] Start: 06-23-2020 End: 02-21-2022 History SDOH Alcohol Std Drinks 98 [facility] Start: 06-23-2020 End: 02-21-2022 History SDOH Social Connections Phone 3 [facility] Start: 06-23-2020 End: 02-21-2022 History SDOH Social Connections Get Together 2 [facility] Start: 06-23-2020 End: 02-21-2022 History SDOH Financial 4 [facility] Start: 06-23-2020 Education 17 [facility] Start: 11-17-2013 End: 09-15-2023 Tobacco Comment uses E cigs [facility] Start: 1980 Sex Assigned At Female C [facility] Start: 07-03-2021 End: 03-14-2022 Exposure to SARS-CoV-2 (event) Not sure [facility] Start: 02-21-2022 History SDOH Social Connections Phone 5 [facility] Tobacco Nicotine Use: Va ping Product in Last 90 Days. Type: Electronic Cigarettes (Vaping). [facility] Start: 01-17-2025 End: 02-20-2025 Tobacco smoking status Smokes tobacco daily (finding) [facility] Sex Assigned At [facility] Start: 03-14-2022 End: 09-15-2023 Tobacco use panel [facility] Start: 06-23-2020 Gender identity Identifies as female gender (finding) [facility] Has the [employer], or [employer] threatened to shut off services in your home in past 12Mo No [facility] How often do you att end christianity or shinto services? Patient declined [facility] Are you now , , , , never or living with a partner? [facility] How often to you hav e a drink containing alcohol? Never [facility] How hard is it for y ou to pay for the very basics like food, housing, medical care, and heating Somewhat hard [facility] Do you feel stress - tense, restless, nervous, or anxious, or unable to sleep at night because your mind is troubled all the time - these days [OSQ] Very much [facility] (I/We) worried wheth er (my/our) food would run out before (I/we) got money to buy more. Often true [facility] The food that (I/we) bought just didn't last, and (I/we) didn't have money to get more. Never true [facility] How hard is it for y ou to pay for the very basics like food, housing, medical care, and heating Not very hard [facility] Do you feel stress - tense, restless, nervous, or anxious, or unable to sleep at night because your mind is troubled all the time - these days [OSQ] To some extent [facility] (I/We) worried wheth er (my/our) food would run out before (I/we) got money to buy more. Sometimes true [facility] Start: 05-31-2021 Alcohol Alcohol [facility] Start: 11-15-2018 Lives Lives [facility] Start: 11-16-2018 Tobacco Use Tobacco Use [facility] Start: 10-05-2015 Sex Female (finding) [facility] Medical Equipment Procedure Code Equipment Code Equipment Original Text Equipment Identifier Dates [id number], [id number] Start: 03-07-2017 End: 02-21-2022 Comment on above: Test blood sugar(s) 1 times daily. Dx: Type 2 DM - Controlled E11.9 Insulin: No Test blood sugar(s) 1 times daily. Dx: E11.9. Insulin: No Functional Status Date Assessment Result Facility 02-04-2023 Functional Status Independent [facility] 02-04-2023 Functional Status ID band on, Allergy Band on, Call device within reach, Bed in low position, Wheels locked, Upper/Half-Length side-rails up [facility] 01-31-2015 Are you deaf, or do you have serious difficulty hearing No 01/31/2015 4:18 PM EDMary Garnica LPN No [facility] 01-31-2015 Are you blind, or do you have serious difficulty seeing, even when wearing glasses No 01/31/2015 4:18 PM Mary Akins LPN No [facility] 01-31-2015 Do you have serious difficulty walking or climbing stairs No 01/31/2015 4:18 PM Mary Akins LPN No [facility] 01-31-2015 Do you have difficul ty dressing or bathing No 01/31/2015 4:18 PM Mary Akins LPN No [facility] 01-31-2015 Because of a physica l, mental, or emotional condition, do you have difficulty doing errands alone such as visiting a physician's office or shopping No 01/31/2015 4:18 PM EDMary Garnica LPN No [facility] Mental Status Date Assessment Result Facility 02-04-2023 Mental Status Orientation Oriented x 4 [facility] 02-04-2023 Mental Status [facility] 01-31-2015 Because of a physica l, mental, or emotional condition, do you have serious difficulty concentrating, remembering, or making decisions No 01/31/2015 4:18 PM EDMary Garnica LPN No [facility] Clinical Notes 11-29-2018 to 02-20-2025 Janel Garcia APRN.ANNUAL GREENHOUSE MANAGER - 02/17/2025 11:20 AM Janel Landis APRN.ANNUAL GREENHOUSE MANAGER - 02/17/2025 11:20 AM EDTReperri Hazel Matthew, RT(R) - 02/15/2025 10:40 AM EDTPatient InstructionsPatient Instructions Note Date & Type Note Facility 02-20-2025 Discharge summary [facility] 02-20-2025 Radiology Diagnostic study note [facility] Imaging Services [address], [place] [address] Abdomen/Pelvis W IV Cont ONLY MR#: [id number] Acct: [id number] Name: ANA HERNNADEZ Rep #: [id number] : 1980 F 45 From: Michelle Cisneros MD PCP: Myranda Dallas, SAFETY COMPANION Status: REG ER Study:Abdomen/Pelvis W IV Cont ONLY Date of E xam: 02/20/25 Exam# [id number] Ordering Dr: Rodolfo Saravia DO PROCEDURE: ABDOMEN/PELVIS W IV CONT ONLY N/A REASON FOR EXAM: LOWER ABDOMINAL PAIN, HISTORY OF OVARIAN MASS TECHNIQUE: ABDOMEN/PELVIS W IV CONT ONLY. Coronal and Sagittal reconstruction series were provided. CONTRAST: Isovue 370 VOLUME: 100 mL One or more dose reduction techniques were used (e.g., Automated exposure control, adjustment of the mA and/or kV according to patient size, use of iterative reconstruction technique. RADIATION DOSE SUMMARY: DLP: 1200 mGycm COMPARISON: CT abdomen pelvis 01/17/2025. FINDINGS: Lung bases: Unremarkable. Liver: Moderate hepatomegaly measuring 24 cm. No suspicious hepatic lesion. The major portal veins are patent. Gallbladder: Surgically absent. Spleen: Normal in size. Pancreas: Unremarkable. Adrenals: No adrenal mass. Kidneys: Stable tiny punctate right renal calculus. No hydronephrosis or left renal calculi. Bladder: Mildly distended and unremarkable. Reproductive Organs: Significant increased size of the right ovarian mass demonstrating mixed areas of hyperdensity and hypodensity. Additional dependent layering of the hyperdensity, which may indicate recent hemorrhage (however patient was supine during examination), best visualized on sagittal image 98. The mass now measures at least 9.6 x 5.7 cm (coronal image 61), previously measuring 6.9 x 3.8 cm on prior imaging when measured in a similar fashion. Trace ascites within the pelvic cul-de-sac, increased since prior examination. The uterus and left ovary are grossly unremarkable. Bowel: The bowel loops are nondilated. No abdominal ascites or free air. Normal appendix. There is intimate association of the right ovarian mass with the right lower quadrant small bowel loops and distal sigmoid colon without obstruction. Lymph nodes: Stable, normal-sized mesenteric and retroperitoneal nodes. No enlarging or suspicious lymphadenopathy. Vasculature: The abdominal aorta and IVC are normal. Bones: No aggressive osseous lesions. CT/Abdomen/Pelvis W IV Cont ONLY IMPRESSION: 1. No acute abdominopelvic finding. 2. 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 Discussed with Dr. Saravia, who notes patient has surgical removal scheduled on Friday. 3. No lymphadenopathy. Trace pelvic ascites, of indeterminate etiology. Reading Location: [id number] CC: SAFETY COMPANION Myranda Dallas; Dr. Ankit Saravia, ~ Tape Coater: Signed [facility] 02-17-2025 History and physical note Images from the original note were not included. [facility] HISTORY AND PHYSICAL EXAMINATION SERVICE DATE: 02/17/2025 SERVICE TIME: 11:54 AM PRIMARY CARE PHYSICIAN: Myranda Dallas APRN.ANNUAL GREENHOUSE MANAGER Assessment Patient has the following medical conditions [...] physical activity. STOP-Bang Score: STOP-Bang Score: 0 [id number] Score: Diabetes history: Yes [id number] Score: ARISCAT Score: Age: <=50 Preoperative SpO2: [...] uses ibuprofen and Tylenol with an occasional [place] for relief. She was referred to oncology [...] Negative for: dysuria, hematuria and renal failure. NUT THREADER: See HPI. Endocrine: Positive for: diabetes mellitus. [...] current everyday user Substances: Nicotine, Flavoring Devices: Tranzlogic tank Substance Use Topics Alcohol use: No [...] medical assistance is available blood-glucose meter,mobile dev ([employer] BLOOD GLUCOSE MONITOR) lyn No medication comments [...] 368 QTC Calculation (Bazett) 445 Calculated P Scotrun 40 Calculated R Scotrun 7 Calculated T Scotrun 46 Impression NORMAL SINUS RHYTHM NORMAL ECG Confirmed by MD LIZ, DANITA ([id number]) on 11/30/2024 12:09:32 PM No results found for this or any previous visit (from the past 64372 hours). Surgical scrub given day of PST. ARISCAT risk index interpretation 0 to 25 points: Low risk: 1.6% pulmonary complication rate 26 to 44 points: Intermediate risk: 13.3% pulmonary complication rate 45 to 123 points: High risk: 42.1% pulmonary complication rate Implantable Devices: None The Following Tests/Procedures Have Been Initiated: No tests ordered in [facility] from surgeon Assessment/Plan Diagnosis: Ovarian mass [N83.8] PLAN Planned Procedure: Procedure(s): LAPAROSCOPIC HYSTERECTOMY TOTAL FOR UTERUS 250G OR LESS (N/A) EXAM UNDER ANESTHESIA PELVIC / VAGINAL (N/A) LAPAROSCOPIC SALPINGECTOMY (Bilateral) LAPAROSCOPIC OOPHORECTOMY (Left) TRANSFUSION BLOOD (N/A) I spent a total of 40 minutes on the date of the service which included preparing to see the patient, [id number] patient care, completing clinical documentation, obtaining and/or reviewing separately obtained history, performing a medically appropriate examination, and counseling and educating the patient/family/caregiver. Instructions Given to Patient: Instructions located in the after visit summary. Patient given verbal and written preop instructions and voices comprehension and compliance. SIGNATURE: Janel Garcia APRN.CNP PATIENT NAME: Ana Hernandez DATE: February 17, 2025 TIME: 7:49 AM PAGER/CONTACT #: T [facility] 02-17-2025 History and physical note Images from [...] physical activity. STOP-Bang Score: STOP-Bang Score: 0 [id number] Score: Diabetes history: Yes [id number] Score: ARISCAT Score: Age: <=50 Preoperative SpO2: [...] Immunization Status Current Care Gaps Covid-19 Vaccine (2023- season) Overdue since 05/02/2024 05/29/2022 Imm Admin: [...] uses ibuprofen and Tylenol with an occasional [place] for relief. She was referred to oncology [...] Negative for: dysuria, hematuria and renal failure. NUT THREADER: See HPI. Endocrine: Positive for: diabetes mellitus. [...] current everyday user Substances: Nicotine, Flavoring Devices: Nexio Substance Use Topics Alcohol use: No Drug [...] medical assistance is available blood-glucose meter,mobile dev ([employer] BLOOD GLUCOSE MONITOR) lyn No medication comments [...] 368 QTC Calculation (Bazett) 445 Calculated P Scotrun 40 Calculated R Scotrun 7 Calculated T Scotrun 46 Impression NORMAL SINUS RHYTHM NORMAL ECG Confirmed by MD LIZ, DANITA ([id number]) on 11/30/2024 12:09:32 PM No results found for this or any previous visit (from the past 50708 hours). Surgical scrub given day of PST. ARISCAT risk index interpretation 0 to 25 points: Low risk: 1.6% pulmonary complication rate 26 to 44 points: Intermediate risk: 13.3% pulmonary complication rate 45 to 123 points: High risk: 42.1% pulmonary complication rate Implantable Devices: None The Following Tests/Procedures Have Been Initiated: No tests ordered in [facility] from surgeon Assessment/Plan Diagnosis: Ovarian mass [N83.8] PLAN Planned Procedure: Procedure(s): LAPAROSCOPIC HYSTERECTOMY TOTAL FOR UTERUS 250G OR LESS (N/A) EXAM UNDER ANESTHESIA PELVIC / VAGINAL (N/A) LAPAROSCOPIC SALPINGECTOMY (Bilateral) LAPAROSCOPIC OOPHORECTOMY (Left) TRANSFUSION BLOOD (N/A) I spent a total of 40 minutes on the date of the service which included preparing to see the patient, [id number] patient care, completing clinical documentation, obtaining and/or [...] AM PAGER/CONTACT #: documented in this encounter [facility] 02-15-2025 History of Present illness Narrative Radiology [...] PATIENT PRESENTS WITH AN IMPLANTABLE OR ATTACHED RESEARCH ATTORNEY: No ALLERGIES: Reviewed and unchanged CONTRAST ALLERGY: [...] TIME: 2:49 PM documented in this encounter [facility] 02-15-2025 Note HNO ID: [id number] Author: HAZEL ZULUAGA RT(Rafa) Service: ? Author Type: Field Support Engineer Type: Progress Notes Filed: 02/15/2025 14:50 Note [...] PATIENT PRESENTS WITH AN IMPLANTABLE OR ATTACHED RESEARCH ATTORNEY: No ALLERGIES: Reviewed and unchanged CONTRAST ALLERGY: [...] DATE: February 15, 2025 TIME: 2:49 PM [facility] 02-11-2025 Instructions Janel Garcia APRN.[facility] - 02/11/2025 7:49 AM EDT PATIENT PREOPERATIVE INSTRUCTIONS Aaron Blount MD has scheduled you for your procedure at this surgery center: [facility]: [phone], [address] [address] Please read below carefully for your personalized [...] - Stop Vitamin E, fish oil, Ginko, Hetal's Wort, flax seed oil, multivitamins, CBD oil, [...] Advance Directive, please fax a copy to [phone] or email to for it to be [...] Advance Directive, please fax a copy to [phone] or Bobby SALMERON at [phone] or email to for it to be [...] into your chart that day. Janel Garcia APRN.KIMO documented in this encounter [facility] 02-08-2025 Note HNO ID: [id number] Author: AARON BLOUNT MD Service: ? Author Type: Physician Type: Progress Notes Filed: 02/08/2025 11:18 Note Text: GYNECOLOGIC ONCOLOGY FOLLOW UP SERVICE DATE: 02/07/2025 SERVICE TIME: 10:42 PM I have communicated my name and active licensure. The patient's identity and physical location were verified at the time of this visit. Either the patient or their legal education courses sales representative has been informed of the risks [...] by the spouse and the patient. No language path was used. Treatment history: - 01/17/2025: Presented [...] surgery on laparoscopy. She was [facility] to [facility]. 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 Gastrointestinal: Positive for abdominal pain. Genitourinary: Positive for pelvic pain and vaginal bleeding. PAST MEDICAL/SURGICAL/OB-NUT THREADER/FAMILY/SOCI AL HISTORY: PAST MEDICAL HISTORY Diagnosis Date ABN [...] lumbar pain injections. 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 [facility] 02-08-2025 History of Present illness Narrative GYNECOLOGIC ONCOLOGY FOLLOW UP SERVICE DATE: 02/07/2025 SERVICE TIME: 10:42 PM I have communicated my name and active licensure. The patient's identity and physical location were verified at the time of this visit. Either the patient or their legal education courses sales representative has been informed of the risks and benefits of -- and alternatives to -- treatment through a remote evaluation and consents to proceed with the evaluation remotely. PRIMARY CARE PHYSICIAN: Myranda Dallas APRN.ANNUAL GREENHOUSE MANAGER CHIEF COMPLAINT/HISTORY OF PRESENT ILLNESS/ROS: CC: Ovarian cyst Referring Provider: Myriam Rivera MD HPI: Still having significant pain, controlled with PO medication after trip to ED. No new symptoms today. The history is provided by the spouse and the patient. No language path was used. Treatment history: - 01/17/2025: Presented [...] surgery on laparoscopy. She was referred to [facility]. 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 Gastrointestinal: Positive for abdominal pain. Genitourinary: Positive for pelvic pain and vaginal bleeding. PAST MEDICAL/SURGICAL/OB-NUT THREADER/FAMILY/SOCI AL HISTORY: PAST MEDICAL HISTORY Diagnosis Date ABN [...] injections. 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 blood-glucose meter,mobile dev (SimScale BLOOD GLUCOSE MONITOR) lyn albuterol HFA (PROAIR [...] MS Gynecologic Oncologist documented in this encounter [facility] 02-07-2025 Hospital Discharge instructions Patient Education 02/07/2025 [...] foods again, start with small amounts of brhx-st-vbhjsd, low-fat foods. These include apple sauce, toast, [...] increase stomach acid. Don't use aspirin or bwoe-lqh-mwpnywz pain and fever medicines, if possible. This includes nonsteroidal anti-inflammatory drugs (NSAIDs). Lose excess weight. Finish eating at least 2 hours before you go to bed or lie down. Raise the head of your bed. 3268-1092 The [employer]. [address] [place] [address]. All rights reserved. This information is not intended as a substitute for professional medical care. Always follow your healthcare professional's instructions. Follow Up Care 02/07/2025 10:37:42 With:please keep your appointment with your oncologist today Address:Unknown When:2-4 days With:Go to emergency room if symptoms worsen Address:Unknown When:2-4 days With:Edmond FERRER Address: [facility] [address] [facility] [address] [place] [address]- When:2-4 days [facility] 06-09-2025 Note Discharge Instructions Thank you for allowing [facility] to assist you with your healthcare needs. [...] Fleet enemas which can also be purchased oenr-nkf-gnykndu for your constipation symptoms, discuss your constipation [...] worsen When:Within 2-4 days Follow Up with Edmond FERRER When:Within 2-4 days Where:[facility] [address] [facility] [address] [place] [address]- Allergies Avelox Rash doxycycline Nausea penicillin Unknown [...] may report side effects to FDA at 7-237-WLV-7867. What other drugs will affect rectal sodium biphosphate and sodium phosphate? Other drugs may affect sodium biphosphate and sodium phosphate, including prescription and yomx-lzj-xbnksgw medicines, vitamins, and herbal products. Tell your [...] to ensure that the information provided by [employer]. ('[employer]') is accurate, up-to-date, and complete, but no guarantee is made to that effect. Drug information contained herein may be time sensitive. [employer] information has been compiled for use by healthcare practitioners and consumers in the [place] and therefore [employer] does not warrant that uses outside of the [place] are appropriate, unless specifically indicated otherwise. [employer] drug information does not endorse drugs, diagnose patients or recommend therapy. [employer] drug information is an informational resource designed [...] effective or appropriate for any given patient. [employer] does not assume any responsibility for any aspect of healthcare administered with the aid of information [employer] provides. The information contained herein is not intended to cover all possible uses, directions, precautions, warnings, drug interactions, allergic reactions, or adverse effects. If you have questions about the drugs you are taking, check with your doctor, nurse or pharmacist. Copyright 2026-4274 [employer]. Version: 3.01. Revision Date: 02/15/2020. Education Materials [...] foods again, start with small amounts of aqxq-wa-nlbcrj, low-fat foods. These include apple sauce, toast, [...] increase stomach acid. Don't use aspirin or rjax-rjt-frvcwqt pain and fever medicines, if possible. This includes nonsteroidal anti-inflammatory drugs (NSAIDs). Lose excess weight. Finish eating at least 2 hours before you go to bed or lie down. Raise the head of your bed. 4057-6201 The [employer]. [address] [place] [address], [place] [address]. All rights reserved. This information is not intended as a substitute for professional medical care. Always follow your healthcare professional's instructions. Additional Information VACCINATE! IT SAVES LIVES! Members of the community who have not yet received the COVID-19 vaccine and would like to receive it can visit one of [facility] vaccine clinics. There are many vaccine clinic locations within the [facility]. For locations and available times, please visit www.[email or web address].[place].gov /. It is important to note that some COVID mobile vaccine clinics are held outdoors and may be canceled in rainy or stormy conditions. To learn more about pediatric vaccinations (ages 5-11), we invite you to visit the [facility] webpage. [email or web address]/page [email or web address]-Xmqao-Babiklbpouy-Frequently -Asked-Questions.html To learn more about the COVID-19 vaccine, we invite you to visit the CDC website for a list of frequently asked questions. https://www.cdc.gov/coronavirus/201 9-ncov/vaccines/faq.html [facility] Patient Portal Access Instructions: Stay connected with your healthcare team and access your personal medical information anytime with the [facility] Patient Portal. If you would like a full copy of your medical records please contact the [facility] Medical Records Department Friday through Friday between 8a.m. and 4:30p.m. Please follow the directions below to access the portal: 1.Access the email account you provided upon registration to the [facility].2.Look for an invitation email from [facility].3.Open the email and access the invitation link: Accept Invitation to [facility].Fill in the required roberson to create your account. Sign into [email or web address] with your username and password that you [...] you will allow to register on the [employer] Patient Portal for access to your information. You can also access the [employer] Patient Portal on the [employer] shakir. Simply click on Health Records under Health Data and then click on the [employer] logo. HOW TO SAFELY DISPOSE OF PRESCRIPTION [...] Call your local pharmacy or go to [email or web address] to find one close to you.3.Make use of household items: Use cat litter or old coffee grounds to dispose medications if other options are not available. Mix your drugs with these household products, seal them in an airtight container and throw it into the garbage. Call [facility]: [phone] to be sure your drugs can be [...] aware that I should contact my doctor. 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 Signature: ____ Date/Time: Relationship to Patient: __ Witness Name/Signature: Date/Time: [facility] 01-30-2025 Radiology Diagnostic study note [facility] Imaging Services [address] [place], [place] [address] Pelvic w/ Transvaginal MR#: [id number] Acct: [id number] Name: ANA HERNANDEZ Rep #: [id number] : 1980 F 45 From: Senthil Dick MD PCP: Myranda Dallas, SAFETY COMPANION Status: REG ER Study:Pelvic w/ Transvaginal Date of Exam: 01/30/25 Exam# [id number] Ordering Dr: Mariel Orellana PROCEDURE: PELVIC W/ [...] Needs referral to gynecological oncologists. Reading Location: [id number] CC: EVY Dallas; WILBERTO Baron ~ Tape Coater: Signed [facility] 01-18-2025 Note HNO ID: [id number] Author: MYRIAM RIVERA MD Service: ? Author [...] hysterectomy on laparoscopy. She was referred to [facility]. 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 Operator History LMP: 03/08/2024 (Approximate), Hysterectomy Age at Menarche: Age at First : Age at Menopause: Orange Picker Machine Operator History Comments: Sexual Activity: Yes; Male Contraception: No contraception data on record PAST MEDICAL HISTORY Diagnosis Date ABN GLUCOSE-ANTEPARTUM 05/23/2006 ASTHMA UNSPECIFIED 05/23/2006 Calculus of ureter 05/23/2006 Callus of foot Callus of foot COMMON MIGRAINE W/O MENTN INTRACT 05/23/2006 DEPRESSIVE DISORDER NEC 08/20/2006 10/09 -Stable, no meds Family history of diabetes [...] current everyday user Substances: Nicotine, Flavoring Devices: RefUniversity of Wollongongble tank Substance Use Topics Alcohol use: No [...] by mouth once daily. blood-glucose meter,mobile dev ([employer] BLOOD GLUCOSE MONITOR) lyn albuterol HFA (PROAIR [...] TIZANIDINE HCL (ZANAFLE (more content not included)... [facility] 01-18-2025 Telephone encounter Note Appt scheduled with PRISCILLA today at 12:50pm. Edgar Mercado RN [facility] 01-18-2025 Miscellaneous Notes Appt scheduled with PRISCILLA today at 12:50pm. Edgar Mercado RN E-mail sent to OB nursing staff by Dr. Luna 01/17/25 at 10:49pm: Patient of cassandra Hernandez 82 presented to the ER with flank pain. CT and pelvic US show ORADS 5 ovarian cyst. Needs follow up this week deborah and possible referral to sales representative cash registers onc. CLAUDIA Trimble documented in this encounter [facility] 01-18-2025 Telephone encounter Note E-mail sent to OB nursing staff by Dr. Luna 01/17/25 at 10:49pm: Patient of cassandra Hernandez 82 presented to the ER with flank pain. CT and pelvic US show ORADS 5 ovarian cyst. Needs follow up this week deborah and possible referral to sales representative cash registers onc. CLAUDIA Trimble [facility] 01-17-2025 Radiology Diagnostic study note [facility] Imaging Services [address] [place] [address] [id number] Transvaginal Non- MR#: [id number] Acct: [id number] Name: ANA HERNANDEZ Rep #: [id number] : 1980 F 45 From: June Back MD PCP: Myranda Dallas, SAFETY COMPANION Status: REG ER Study:Transvaginal Non- Date of Exam: 01/17/25 Exam# [id number] Ordering Dr: Jostin Stone DO PROCEDURE: TRANSVAGINAL [...] with O-RADS 5 classification (High Risk). 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 Yellow Alert: High Risk ovarian mass The critical information above was relayed directly by me by telephone to Jostin Stone on 01/17/2025 at 10:18 pm with readback verification. Reading Location: [facility] CC: SAFETY COMPANION Myranda Dallas; Dr. Jostin Stone DO ~ Tape Coater: Signed [facility] 01-17-2025 Radiology Diagnostic study note [facility] Imaging Services [address] [place] [address] Abdomen/Pelvis without Cont MR#: [id number] Acct: [id number] Name: ANA HERNANDEZ Rep #: [id number] : 1980 F 45 From: June Back MD PCP: EVY Jefferson Status: REG ER Study:Abdomen/Pelvis without Cont Date of Exa m: 01/17/25 Exam# [id number] Ordering Dr: Jostin Stone DO PROCEDURE: ABDOMEN/PELVIS [...] the right kidney. No hydronephrosis. Reading Location: [id number] CC: [facility] Myranda Dallas; Dr. Jostin Stone, DO ~ Tape Coater: Signed [facility] 01-17-2025 Note HNO ID: [id number] Author: DAVID ALBA APRN.ANNUAL GREENHOUSE MANAGER Service: ? Author Type: Nurse Practitioner Type: [...] by mouth once daily. blood-glucose meter,mobile dev ([employer] BLOOD GLUCOSE MONITOR) lyn albuterol HFA (PROAIR [...] current everyday user Substances: Nicotine, Flavoring Devices: [employer] tank Substance Use Topics Alcohol use: No Drug use: No BP 160/84 Pulse 78 Temp 36.1 ?C (97 ?F) Resp 16 Wt 88.6 kg (195 lb 5.2 oz) LMP 03/08/2024 (Approximate) SpO2 97% BMI 35.27 kg/m? Review (more content not included)... [facility] 01-17-2025 History of Present illness Narrative Subjective [...] for further evaluation care. Will be sent [facility] David Alba APRN.CNP documented in this encounter [facility] 12-20-2024 Instructions Myranda Dallas APRN.CNP - 12/20/2024 9:38 AM EDT 1) No change in medications 2) Labs in 3 months 3) Follow up in 6 months documented in this encounter [facility] 12-20-2024 Note HNO ID: [id number] Author: MYRANDA DALLAS APRN.CNP Service: ? Author [...] Grandfather Social History (more content not included)... [facility] 12-20-2024 History of Present illness Narrative This [...] Myranda Dallas APRN.KIMO documented in this encounter [facility] 11-23-2024 Telephone encounter Note Patient was made aware of the results. Patient verbalizes understanding. Mariel Pruitt Ma [facility] 11-23-2024 Miscellaneous Notes Patient was made aware [...] has been longstanding. documented in this encounter [facility] 11-23-2024 Telephone encounter Note ----- Message from [...] from tobacco use. This has been longstanding. [facility] 11-22-2024 Progress note Formatting of t his [...] from tobacco use. This has been longstanding. [facility] 11-20-2024 Note HNO ID: [id number] Author: EDVIN MORENO LISW Service: ? Author Type: Therapist Type: Progress Notes Filed: 11/20/2024 19:06 Note Text: Behavioral Health Social Work Progress Note Patient identified for [facility] from: PCP Reason for referral: Resources Behavioral Health Resources: Psychiatry med management, Psychology - talk therapy [facility] encounter type: MyChart Message Attempts to Outreach: 1 attempt Referral made: Psychiatry - External, Psychology - External Psychology-External referral type: Therapy Psychiatry-External referral type: Medication Management Reason for external referral: Wait times at [facility] too long Final Disposition: Resources given Patient Discharged?: No Patient reported that caregiver was able to meet their needs today?: N/A SW sent the following resources to Pt via [employer]: [facility]) [address] [place] [address] [facility] [address] [place] [address] [employer] [address] [address] [facility] [address] [place] [address] [phone] [id number] [address] [facility], [id number] [phone] MELODIE Villalobos November 20, 2024 [facility] 11-20-2024 History of Present illness Narrative Behavioral Health Social Work Progress Note Patient identified for [facility] from: PCP Reason for referral: [facility] Behavioral Health Resources: Psychiatry med management, Psychology - talk therapy [facility] encounter type: MyChart Message Attempts to Outreach: 1 attempt Referral made: Psychiatry - External, Psychology - External Psychology-External referral type: Therapy Psychiatry-External referral type: Medication Management Reason for external referral: Wait times at [facility] too long Final Disposition: Resources given Patient Discharged?: No Patient reported that caregiver was able to meet their needs today?: N/A CLAUDIA sent the following resources to Pt via [employer]: [facility] ([facility]) [address] [place] [address] [facility] [address] [place], [place] [id number] [employer] [address] [place], [place] [address] [facility] [address] [place] [id number] [address], [id number] MELODIE Villalobos November 20, 2024 documented in this encounter [facility] 11-18-2024 Instructions Myranda Dallas APRN.CNP - 11/18/2024 10:17 AM EDT 1) Check labs 2) Increase propranolol to 40 mg 2 x day 3) Increase venlafaxine to 75 mg daily 4) Mupirocin ointment to right leg 3 x day for 5 days 5) Consult behavioral health to contact you documented in this encounter [facility] 11-18-2024 Note HNO ID: [id number] Author: MYRANDA DALLAS APRN.CNP Service: ? Author [...] taking: No sig reported) blood-glucose meter,mobile dev (HOLLY BLOOD GLUCOSE MONITOR) lyn No current facility-administered medications for this visit. FAMILY HISTORY Problem Relation Age of Onset Diabetes Mother Diabetes Father Colon Cancer Father 61 Diabetes Maternal Grandmother other (Parkinson's) Maternal Grand (more content not included)... [facility] 11-18-2024 History of Present illness Narrative This [...] taking: No sig reported) blood-glucose meter,mobile dev (HOLLY BLOOD GLUCOSE MONITOR) [...] current everyday user Substances: Nicotine, Flavoring Devices: [employer] tank Substance Use Topics Alcohol use: No [...] Myranda Dallas APRN.KIMO documented in this encounter [facility] 11-18-2024 Telephone encounter Note Pt put this in a [employer] msg and sent it last evening at [...] something is going to happen to her. [facility] 11-18-2024 Miscellaneous Notes Pt put this in a [employer] and sent it last evening at 835 pm. Dizziness, shakiness, feelings of dread, heart racing. I feel like I am having a panic attackall . Called and spoke with pt who is [...] happen to her. documented in this encounter [facility] 06-07-2024 Telephone encounter Note The following approved [...] two times a day. Myranda Dallas APRN.CNP [facility] 06-07-2024 Miscellaneous Notes The following approved medication [...] 2024 7:44 AM documented in this encounter [facility] 06-07-2024 Telephone encounter Note Prescription Refill Information [...] LULY Schneider June 07, 2024 7:44 AM [facility] 04-25-2024 Telephone encounter Note I called and let [place] know the below information and she stated understanding. I did schedule her for lab work to be done tomorrow 04/26/24 @ 8:30 am, she confirmed this date, time and location [place] [facility] 04-25-2024 Miscellaneous Notes I called and let Guanakito know the below information and she stated understanding. I did schedule her for lab work to be done tomorrow 04/26/24 @ 8:30 am, she confirmed this date, time and location [place] Can let her know the repeat CBC was normal. Flow cytometry showed no evidence of chronic leukemia. Likely previous increases in white blood cell count secondary to fatty liver and history of PCO. Inflammatory markers elevated. Ferritin mildly elevated. Return for another blood test to rule out hereditary hemochromatosis. Jose Tsai DO documented in this encounter [facility] 04-25-2024 Telephone encounter Note Can let her know the repeat CBC was normal. Flow cytometry showed no evidence of chronic leukemia. Likely previous increases in white blood cell count secondary to fatty liver and history of PCO. Inflammatory markers elevated. Ferritin mildly elevated. Return for another blood test to rule out hereditary hemochromatosis. Jose Tsai DO [facility] 04-23-2024 Telephone encounter Note See result note Flagyl sent for +BV [facility] 04-23-2024 Miscellaneous Notes See result note Flagyl sent for +BV documented in this encounter [facility] 04-22-2024 Note HNO ID: [id number] Author: ZHENG LUNA MD Service: ? Author Type: Physician Type: Progress Notes Filed: 04/22/2024 13:55 Note Text: Section Beamer offered: Patient declines. DATE OF SERVICE: 04/22/2024 [...] PLAN: Reviewed surgical findings Referral placed to [facility] Check for BV Discussed pain likely secondary to gas and constipation. Taking Colace. Sent rx for Miralax. Push fluids and encouraged probiotic, fiber, prune or pear juice. To notify office by Friday if no improvement with Miralax Zheng Luna DO [facility] 04-22-2024 History of Present illness Narrative Section Beamer offered: Patient declines. DATE OF SERVICE: 04/22/2024 [...] PLAN: Reviewed surgical findings Referral placed to [facility] Check for BV Discussed pain likely secondary to gas and constipation. Taking Colace. Sent rx for Miralax. Push fluids and encouraged probiotic, fiber, prune or pear juice. To notify office by Friday if no improvement with Miralax Zheng Luna DO documented in this encounter [facility] 04-22-2024 Note HNO ID: [id number] Author: JOSE TSAI DO Service: ? Author [...] PCOS--dx at age 7 when living in [place]. Was going have hysterectomy last week, but [...] current everyday user Substances: Nicotine, Flavoring Devices: RefUniversity of Wollongongble tank Substance Use Topics Alcohol use: No [...] ferritin. -Patient be (more content not included)... [facility] 04-22-2024 History of Present illness Narrative Consulted for leukocytosis. The impression and plan will be communicated by way of the shared electronic record. HPI: The patient is a 44-year-old female with past medical history as outlined below. Vapes. Menses irregular. Heavy. Painful. Has been diagnosed with PCOS--dx at age 7 when living in [place]. Was going have hysterectomy last week, but [...] current everyday user Substances: Nicotine, Flavoring Devices: relocalityble tank Substance Use Topics Alcohol use: No [...] which included preparing to see the patient, agkm-oq-tabq patient care, completing clinical documentation, obtaining and/or reviewing separately obtained history, performing a medically appropriate examination, counseling and educating the patient/family/caregiver, ordering medications, tests, or procedures, communicating with other HCPs (not separately reported), and communicating results to the patient/family/caregiver. Jose Tsai DO documented in this encounter [facility] 04-19-2024 Telephone encounter Note Patient called and notified of below information and voiced understanding. Pre Op appointment moved to 04/22. Elise Altamirano RN [facility] 04-19-2024 Miscellaneous Notes Patient called and notified [...] N/V. Patient had surgery on 04/[address] [facility]. She is scheduled for post op on 04/26. Elise Altamirano RN documented in this encounter [facility] 04-19-2024 Telephone encounter Note See if she can see me sooner on 04/22 I have an opening at 1.10. Agree with Colace, Miralax PRN, fluids, prune or pear juice. Heat, tylenol and ibuprofen PRN. Could still be gas pain from surgery. To go to ER for severe pain, fevers, chills, N/V. [facility] Work Phone: 04-19-2024 Telephone encounter Note Patient had surgery on 04/[address] [facility]. She is scheduled for post op on 04/26. Elise Altamirano RN [facility] 04-14-2024 Telephone encounter Note Sent text to SW or they can page her tomorrow. Almita Snyder MD [facility] Work Phone: 04-14-2024 Miscellaneous Notes Sent text to SW or they can page her tomorrow. Almita Snyder MD [facility] pharmacistDouglas called. Patient is scheduled for TL[facility], bilat salp, Cystoscopy with SW tomorrow. Patient has a PCN allergy with hives noted. SW ordered Cefazolin 2 gram. Pharmacist asking if this needs changed. He can be contacted at [phone]. Myriam Wisdom, SADIQ documented in this encounter [facility] 04-14-[address] [facility] Douglas marie called. Patient is scheduled for [facility], vania martinez, Cystoscopy with SW tomorrow. Patient has a PCN allergy with hives noted. SW ordered Cefazolin 2 gram. Pharmacist asking if this needs changed. He can be contacted at [phone]. Myriam Wisdom, RN [facility] 04-08-2024 Telephone encounter Note FMLA paperwork is completed and has been faxed to employer. Patient notified. Ricardo Mendez MA [facility] 04-08-2024 Miscellaneous Notes FMLA paperwork is completed and has been faxed to employer. Patient notified. Ricardo Mendez MA Received patients FMLA paperwork for upcoming surgery. Completed and placed on providers desk for signature. Ricardo Mendez MA documented in this encounter [facility] 04-06-2024 Progress note Formatting of t his note might be different from the original. Hemoglobin A1c indicates that diabetes is well-controlled. [facility] 04-06-2024 Miscellaneous Notes Hemoglobin A1c indicates that diabetes is well-controlled. documented in this encounter [facility] 04-02-2024 Telephone encounter Note Received patients FMLA paperwork for upcoming surgery. Completed and placed on providers desk for signature. Ricardo Mendez MA [facility] 04-02-2024 History and physical note DATE OF [...] Medical Decision Making Level: 4 - Moderate [facility] 04-02-2024 History and physical note DATE OF [...] current everyday user Substances: Nicotine, Flavoring Devices: RefUniversity of Wollongongble tank Substance Use Topics Alcohol use: No [...] 4 - Moderate documented in this encounter [facility] 03-17-2024 Telephone encounter Note Called patient and scheduled as directed Carmen Oquendo [facility] 03-17-2024 Miscellaneous Notes Called patient and scheduled as directed Carmen Oquendo 1st attempt. Message left for patient to schedule first available with Dr. Tsai or Dr. Posadas. - low priority consultation. TRANSIT DEPARTMENT CLERK/LEUKOCYTOSIS/REF PROV MYRANDA DALLAS* Low priority consultation. Next new with me [...] Kidney function okay. documented in this encounter [facility] 03-16-2024 Telephone encounter Note 1st attempt. Message left for patient to schedule first available with Dr. Tsai or Dr. Posadas. - low priority consultation. TRANSIT DEPARTMENT CLERK/LEUKOCYTOSIS/REF PROV MYRANDA DALLAS* [facility] Work Phone: 03-16-2024 Telephone encounter Note Low priority consultation. Next new with me or Dr. Posadas. Jose Tsai DO [facility] Work Phone: 03-16-2024 Telephone encounter Note Please review and advise. [facility] 03-16-2024 Telephone encounter Note Patient was made aware of the results. Patient verbalizes understanding. Will route to hem/onc pss to get set up for consult Mariel Pruitt MA March 16, 2024 8:43 AM [facility] 03-16-2024 Telephone encounter Note Please let patient know that her white blood count is even higher. I am going to refer her to hematology to see if this is problematic.. Magnesium level has shown no change. Please increase magnesium to twice daily. Liver functions are slightly improved. Still high. Kidney function okay. [facility] 03-15-2024 Instructions Myranda Dallas APRN.CNP - 03/15/2024 8:59 AM EDT 1) Labs today 2) Follow up in 6 months documented in this encounter [facility] 03-15-2024 Note HNO ID: [id number] Author: MYRANDA DALLAS APRN.CNP Service: ? Author [...] ORAL) Take by mouth. blood-glucose meter,mobile dev ([employer] BLOOD GLUCOSE MONITOR) lyn albuterol HFA (PROAIR [...] A FUNCTIONAL CLASS: IV REVIEW OF SYSTEMS SAFETY COMPANION: No history of stroke, TIAs, or seizures, or dementia reported.. RESP: Denies cough, wheeze but does have asthma that she states is well controlled CARD: Patient denies any dyspnea, recent NJ, angina, arrhythmias, or valvular disease, and Denies [...] deformities, edema, clubbing (more content not included)... [facility] 03-15-2024 History of Present illness Narrative PRE-OPERATIVE [...] ORAL) Take by mouth. blood-glucose meter,mobile dev ([employer] BLOOD GLUCOSE MONITOR) lyn albuterol HFA (PROAIR [...] A FUNCTIONAL CLASS: IV REVIEW OF SYSTEMS SAFETY COMPANION: No history of stroke, TIAs, or seizures, or dementia reported.. RESP: Denies cough, wheeze but does have asthma that she states is well controlled CARD: Patient denies any dyspnea, recent NJ, angina, arrhythmias, or valvular disease, and Denies [...] : not examined/not indicated. EKG: Not indicated ------- IMPRESSION: Optimized for hysterectomy Ana Hernandez is [...] Myranda Dallas APRN.KIMO documented in this encounter [facility] 02-27-2024 Telephone encounter Note Patient was made aware of the results. Patient verbalizes understanding. Patient is ok with metformin increase Mariel Pruitt Ma [facility] 02-27-2024 Miscellaneous Notes Patient was made aware [...] decides about Metformin. documented in this encounter [facility] 02-27-2024 Telephone encounter Note Please check with [...] me know what she decides about Metformin. [facility] 02-27-2024 Telephone encounter Note Please check with [...] me know what she decides about Metformin. [facility] 02-27-2024 Miscellaneous Notes Please check with patient [...] help pt schedule pre-op appointment for upcoming sales representative cash registers procedure. documented in this encounter [facility] 02-26-2024 Miscellaneous Notes Addended by: MYRANDA DALLAS on: 02/26/2024 08:50 AM Modules accepted: Orders documented in this encounter [facility] 02-26-2024 Note Addended by: MYRANDA DALLAS on: 02/26/2024 08:50 AM Modules accepted: Orders [facility] 02-26-2024 Instructions Myranda Dallas APRN.CNS - 02/26/2024 8:47 AM EDT 1) Take the following medications the morning of surgery with a small sip of water: topiramate, buspirone, propranolol, venlafaxine, (no metformin) 2) To Stop NSAID's (e.g. Motrin,Aleve,Arthrotec etc) 7 days before surgery. Fish oil & celebrex 3) Get labs today 4) Follow up with Jayjay as scheduled documented in this encounter [facility] 02-26-2024 Note HNO ID: [id number] Author: MYRANDA DALLAS APRN.SAFETY COMPANION Service: ? Author Type: Clinical Nurse Specialist [...] by mouth twice daily. blood-glucose meter,mobile dev ([employer] BLOOD GLUCOSE MONITOR) lyn No current facility-administered medications for this visit. MEDICATIONS AND ALLERGIES REVIEWED. LATEX ALLERGY: No PATIENT CAN PERFORM THE FOLLOWING: Participate in moderate recreational activities, such as golf, bowling, dancing, doubles tennis, or throwing a baseball or football (6.00 METs) PATIENT IS A FUNCTIONAL CLASS: 6 mets REVIEW OF SYSTEMS SAFETY COMPANION: No history of stroke, TIAs, or seizures, or dementia reported.. RESP: + asthma CARD: Patient denies any dyspnea, recent NJ, angina, arrhythmias, or valvular disease, and Denies [...] : not examined/not indicated. EKG: Not indicated ------- (more content not included)... [facility] 02-26-2024 History of Present illness Narrative PRE-OPERATIVE [...] FUNCTIONAL CLASS: 6 mets REVIEW OF SYSTEMS SAFETY COMPANION: No history of stroke, TIAs, or seizures, or dementia reported.. RESP: + asthma CARD: Patient denies any dyspnea, recent NJ, angina, arrhythmias, or valvular disease, and Denies [...] : not examined/not indicated. EKG: Not indicated ------- IMPRESSION: Myranda Dallas APRN.CNS Ana Hernandez is [...] as needed for worsening/no improvement. Myranda Dallas APRN.CNS documented in this encounter [facility] 02-24-2024 Telephone encounter Note Spoke with patient and scheduled on 02/26/24 with Anuradha [facility] 02-24-2024 Telephone encounter Note Please help pt schedule pre-op appointment for upcoming sales representative cash registers procedure. [facility] 02-23-2024 Note HNO ID: [id number] Author: ZHENG LUNA MD Service: ? Author [...] this with patient. Surgery sheet completed for TLBreanna, BS, cysto. Zheng Luna DO [facility] 02-23-2024 History of Present illness Narrative DATE [...] this with patient. Surgery sheet completed for TLBreanna, BS, cysto. Zheng Luna DO documented in this encounter [facility] 02-11-2024 Note Formatting of this n ote might be different from the original. February 11, 2024 PID: [id number] Ana Hernandez [address] [facility] [address] [place] [address] Dear Ms. Hernandez, We are pleased to [...] report will be kept on file at [facility] as part of your permanent medical record and are available for your continuing care. Thank you for allowing us to help in meeting your health care needs. Sincerely, Dr. Gutierrez Interpreting Radiologist [facility] (Normal over 40) [facility] 02-11-2024 Miscellaneous Notes February 11, 2024 PID: [id number] Ana Hernandez [address] [facility] [address] [place] [address] Dear Ms. Hernandez, We are pleased to [...] report will be kept on file at [facility] as part of your permanent medical record and are available for your continuing care. Thank you for allowing us to help in meeting your health care needs. Sincerely, Dr. Gutierrez Interpreting Radiologist [facility] (Normal over 40) documented in this encounter [facility] 02-10-2024 History of Present illness Narrative Radiology [...] PATIENT PRESENTS WITH AN IMPLANTABLE OR ATTACHED RESEARCH ATTORNEY: No RADIOLOGY DEPARTMENT: Mammography PERIPHERAL IV DATA: Not applicable SIGNED BY: Rufina Hannon February 10, 2024 1:03 PM documented in this encounter [facility] 01-23-2024 History and physical note DATE OF [...] Topics Alcohol use: No Drug use: No NUT THREADER HISTORY: EMB: FINAL DIAGNOSIS A. Endometrium, biopsy: [...] ORAL) Take by mouth. blood-glucose meter,mobile dev ([employer] BLOOD GLUCOSE MONITOR) lyn albuterol HFA (PROAIR [...] Medical Decision Making Level: 4 - Moderate [facility] 01-23-2024 History and physical note DATE OF [...] Topics Alcohol use: No Drug use: No NUT THREADER HISTORY: EMB: FINAL DIAGNOSIS A. Endometrium, biopsy: [...] to proceed with the planned surgery. Zheng Luna, Medical Decision Making: Problems: Moderate: New problem with uncertain prognosis Risk: Moderate: Decision on minor surgery w/ risk factors Medical Decision Making Level: 4 - Moderate documented in this encounter [facility] 01-15-2024 History of Present illness Narrative VIRTUAL VISIT PROGRESS NOTE This is a virtual visit using UNI5om Video Visit. It required patient-provider interaction for the medical decision making as documented below. I have communicated my name and active licensure. The patient's identity and physical location were verified at the time of this visit. Either the patient or their legal education courses sales representative has been informed of the risks [...] current everyday user Substances: Nicotine, Flavoring Devices: Nexio Substance Use Topics Alcohol use: No Drug [...] which included preparing to see the patient, etjg-zw-gxle patient care, completing clinical documentation, obtaining and/or reviewing separately obtained history, counseling and educating the patient/family/caregiver, and ordering medications, tests, or procedures Samanta Dobson APRN.ANNUAL GREENHOUSE MANAGER documented in this encounter [facility] 01-12-2024 Instructions Sadaf Sorensen MA - 01/12/2024 [...] contact the office. documented in this encounter [facility] 01-12-2024 History of Present illness Narrative Section Beamer offered: Patient declinesRobert Foster is a 44 [...] Zheng Luna DO documented in this encounter [facility] 01-08-2024 Telephone encounter Note Ordered filed. Please call pt to schedule EMB. Samanta Dobson APRN.CNP [facility] 01-08-2024 Miscellaneous Notes Ordered filed. Please call pt to schedule EMB. Samanta Dobson APRN.CNP Please file EMB order and route to PSS to assist with scheduling. Thank you. Spoke with pt regarding US report. She will need an appt for an EMB. Please call pt to schedule. Order filed. Samanta Dobson APRN.CNP documented in this encounter [facility] 01-07-2024 Telephone encounter Note Please file EMB order and route to PSS to assist with scheduling. Thank you. [facility] 01-05-2024 Telephone encounter Note Spoke with pt regarding US report. She will need an appt for an EMB. Please call pt to schedule. Order filed. Samanta Dobson APRN.CNP [facility] 12-31-2023 History of Present illness Narrative Radiology [...] PATIENT PRESENTS WITH AN IMPLANTABLE OR ATTACHED RESEARCH ATTORNEY: No RADIOLOGY DEPARTMENT: Ultrasound PERIPHERAL IV DATA: Not applicable SIGNED BY: Mel Cazares RDMS RVT December 31, 2023 1:28 PM documented in this encounter [facility] 12-16-2023 History of Present illness Narrative Section Beamer offered: Patient declines. 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 LMP: 12/12/2023 (Exact Date), Having periods Age at Menarche: Age at First : Age at Menopause: Orange Picker Machine Operator History Comments: Sexual Activity: Yes; Male Contraception: No contraception data on record PAST MEDICAL HISTORY Diagnosis Date ABN GLUCOSE-ANTEPARTUM 05/23/2006 ASTHMA UNSPECIFIED 05/23/2006 Calculus of ureter 05/23/2006 Callus of foot Callus of foot COMMON MIGRAINE W/O MENTN INTRACT 05/23/2006 DEPRESSIVE DISORDER NEC 08/20/2006/ -Stable, no meds Family history of diabetes [...] current everyday user Substances: Nicotine, Flavoring Devices: RefUniversity of Wollongongble tank Substance Use Topics Alcohol use: No [...] to drive or work today. Samanta Dobson APRN.KIMO Medical Decision Making: Problems: Moderate: New problem with uncertain prognosis Data: Unique test(s) ordered: 3+ Risk: Low: Low risk from testing/treatment Medical Decision Making Level: 4 - Moderate documented in this encounter [facility] 12-08-2023 Miscellaneous Notes Patient has been identified [...] Myranda Ruiz LPN. documented in this encounter [facility] 11-16-2023 Instructions David Alba APRN.KIOM - 11/16/2023 12:34 PM EDT How to [...] concerning to you. documented in this encounter [facility] 11-16-2023 History of Present illness Narrative Subjective HPI Nontoxic-appearing female presents urgent care chief complaint flulike symptoms. Duration of symptoms 4 days. Associated symptoms sore throat headache fatigue cough nasal congestion right nares soreness. Has used OTC medications. No known sick contacts. 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 Denies any fevers [...] current everyday user Substances: Nicotine, Flavoring Devices: RefUniversity of Wollongongble tank Substance Use Topics Alcohol use: No [...] of care. This note was generated using [employer]ision [employer] software. It may contain errors in wording, punctuation, or spelling. David Alba APRN.KIMO documented in this encounter [facility] 10-31-2023 Miscellaneous Notes Patient has been identified [...] Myranda Ruiz LPN. documented in this encounter [facility] 02-05-2023 Note . MICRO - Microbiology PROCEDURE: Urine Culture [*1] SOURCE: Urine, Clean Catch BODY SITE: COLLECTED DATE/TIME: 02/04/2023 15:35 EDT RECEIVED DATE/TIME: 02/04/2023 18:58 EDT START DATE/TIME: 02/04/2023 18:58 EDT FREE TEXT SOURCE: FINAL REPORTS Final Report [] Verified Date/Time/Personnel: 02/05/2023 14:55 EDT <10,000 cfu/ml. No Significant growth. Sensitivity not indicated. Performing Locations *1: This test was performed at: [facility], [address] [place] [address], [id number] , [facility] ([place]) 02-04-2023 Hospital Discharge instructions Patient Education 02/04/2023 [...] Laxatives Your healthcare provider may suggest an xztk-wjn-ojfekhb product to help ease your constipation. He or she may suggest the use of bulk-forming agents or laxatives. The use of laxatives, if used as directed, is common and safe. Follow directions carefully when using them. See your healthcare provider for new-onset constipation, or long-term constipation, to rule out other causes such as medicines or thyroid disease. [phone] [employer]. [address] [place] [address], [place] [address]. All rights reserved. This information is not [...] Black, tarry stool Involuntary weight loss Weakness [phone] [employer]. [address] [place] [address]. All rights reserved. This information is not intended as a substitute for professional medical care. Always follow your healthcare professional's instructions. Follow Up Care 02/04/2023 14:46:48 With:Edmond FERRER Address: [address] [place] [address]- When:2-4 days [facility] 02-04-2023 Note Discharge Instructions Thank you for allowing [facility] to assist you with your healthcare needs. [...] Schedule the Following Appointments Follow Up with Edmond FERRER When Within 2-4 days Where: [address] [place] [address]- Allergies Avelox (Rash) doxycycline (Nausea) penicillin (Unknown) [...] Laxatives Your healthcare provider may suggest an hwzl-hfk-acygzrz product to help ease your constipation. He or she may suggest the use of bulk-forming agents or laxatives. The use of laxatives, if used as directed, is common and safe. Follow directions carefully when using them. See your healthcare provider for new-onset constipation, or long-term constipation, to rule out other causes such as medicines or thyroid disease. [phone] [employer]. [address] [place] [address]. All rights reserved. This information is not [...] Black, tarry stool Involuntary weight loss Weakness [phone] [employer]. [address] [place] [address], [place] [address]. All rights reserved. This information is not intended as a substitute for professional medical care. Always follow your healthcare professional's instructions. Additional Information VACCINATE! IT SAVES LIVES! Members of the community who have not yet received the COVID-19 vaccine and would like to receive it can visit one of [facility] vaccine clinics. There are many vaccine clinic locations within the [facility]. For locations and available times, please visit www.[email or web address].[place].gov /. It is important to note that some COVID mobile vaccine clinics are held outdoors and may be canceled in rainy or stormy conditions. To learn more about pediatric vaccinations (ages 5-11), we invite you to visit the [employer] webpage. https://www.[employer]s.org/page s/2387-Opdkk-Ubkldfmwwvb-Frequently -Asked-Questions.html To learn more about the COVID-19 vaccine, we invite you to visit the CDC website for a list of frequently asked questions. https://www.cdc.gov/coronavirus/201 9-ncov/vaccines/faq.html [employer] Patient Portal Access Instructions: Stay connected with your healthcare team and access your personal medical information anytime with the [facility] Patient Portal. If you would like a full copy of your medical records please contact the [facility] Medical Records Department Friday through Friday between 8a.m. and 4:30p.m. Please follow the directions below to access the portal: 1.Access the email account you provided upon registration to the hospital.2.Look for an invitation email from [facility].3.Open the email and access the invitation link: Accept Invitation to [facility].Fill in the required roberson to create your account. Sign into [email or web address] with your username and password that you [...] you will allow to register on the [employer] Patient Portal for access to your information. You can also access the [employer] Patient Portal on the [employer]. Simply click on Health Records under Health Data and then click on the [employer] logo. HOW TO SAFELY DISPOSE OF PRESCRIPTION [...] Call your local pharmacy or go to [email or web address]/[email or web address] to find one close to you.3.Make use of household items: Use cat litter or old coffee grounds to dispose medications if other options are not available. Mix your drugs with these household products, seal them in an airtight container and throw it into the garbage. Call [facility]: [phone] to be sure your drugs can be [...] reviewed and explained to me and I,ANA HERNANEDZ understand my current condition and have read and understand these discharge instructions. I have received a written copy of the plan/instructions. If I have questions, I am aware that I should contact my doctor. 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 Signature: ____ Date/Time: Relationship to Patient: __ Witness Name/Signature: Date/Time: [facility] 02-04-2023 Note ORIGINAL EXAMINATION: ONE SUPINE [...] Date: 02/04/2023 4:03:53 PM Ordering Provider: ISABELLE METZ [facility] 02-04-2023 Note ORIGINAL EXAMINATION: ONE SUPINE [...] Date: 02/04/2023 4:03:53 PM Ordering Provider: ISABELLE METZ [facility] 02-04-2023 Evaluation + Plan note Diagnostic Tests PendingUrine Culture 02/04/23 [facility] 01-29-2023 Miscellaneous Notes Patient phones requesting refills [...] Guanakito Edwards LPN documented in this encounter [facility] 11-25-2022 Miscellaneous Notes Notified via [employer]. Rachel Land Ma Script sent. Due for [...] INSTRUCTIONS: MyChart request. No future visit scheduled. [facility] 02/21/22 Edgar Thornton LPN documented in this encounter [facility] 09-19-2022 Miscellaneous Notes Patient has been identified [...] Last refill; 03/2022 documented in this encounter [facility] 07-23-2022 Miscellaneous Notes Patient phones requesting refills as follows: Requested Prescriptions Pending Prescriptions Disp Refills amitriptyline (ELAVIL) 50 mg tablet 60 tablet 4 Sig: Take 1-2 tablets by mouth daily at bedtime. desvenlafaxine ER (PRISTIQ) 25 mg 24 hr tablet 30 tablet 2 Sig: Take 1 tablet by mouth once daily. [facility]-02/21/22 Labs-02/21/22 NOV-none Please review and advise. Luana Hartman LPN documented in this encounter [facility] 06-21-2022 Miscellaneous Notes Form completed and given to patient . True calls to check on Status of Letter. Requesting call back today at [phone]. Seema Humphreys, RN Type of form: Medical certification Form received via walk in When form is completed, call , True [phone] Form has been forwarded to Physician Desk: Jayjay Ferrer Asks to be done today. Edgar Thornton LPN documented in this encounter [facility] 03-14-2022 Instructions Mirza Daniel - 03/14/2022 9:21 AM EDT Continue with local wound care until healed. So continue with soaking and topical antibiotic If you notice increased moisture, can apply betadine to periphery. Call if any issues arise. Toes appear very stable. documented in this encounter [facility] 03-14-2022 History of Present illness Narrative FOLLOW [...] (H) 4.3 - 5.6 % Final Comment: [place] [employer] guidelines indicate that patients with HgbA1c in the range 5.7-6.4% are at increased risk for development of diabetes, and intervention by lifestyle modification may be beneficial. HgbA1c greater or equal to 6.5% is considered diagnostic of diabetes. PCP: Edmond Ferrer PA-C PAST MEDICAL HISTORY Diagnosis Date [...] Aziza Scott LPN documented in this encounter [facility] 03-11-2022 Miscellaneous Notes Last office visit: 02/21/22 F/u scheduled: none Rachel Land Ma documented in this encounter [facility] 03-11-2022 Miscellaneous Notes Last office visit: 02/21/22 F/u scheduled: none Rachel Land Ma documented in this encounter [facility] 02-28-2022 History of Present illness Narrative UNIVERSAL [...] (H) 4.3 - 5.6 % Final Comment: [place] [employer] guidelines indicate that patients with HgbA1c in the range 5.7-6.4% are at increased risk for development of diabetes, and intervention by lifestyle modification may be beneficial. HgbA1c greater or equal to 6.5% is considered diagnostic of diabetes. PCP: Edmond Ferrer PA-C PAST MEDICAL HISTORY Diagnosis Date [...] Outpatient Medications Medication Sig blood-glucose meter,mobile dev ([employer] BLOOD GLUCOSE MONITOR) lyn albuterol HFA (PROAIR [...] unchanged from previous visit. Non-Invasive Vascular Laboratory [facility] Lower Extremity Arterial Physiology Study Bilateral/Complete [...] Normal at rest. Technologist: Meera Joseph RVT, RDMS Ordering physician: MIRZA DANIEL Interpreting physician: ALLAN [...] offered to do one foot at at [facility] but she wishes to do both nails [...] weeks. Nargis Treadwell DPM, DABPM, FACFAS Pager: [phone] [facility]opedic [facility] Rheumat[facility] [place] [facility] and [facility] locations Patient presents with: Left Great Toe - toenail removal, Follow Up Right Great Toe - toenail removal, Follow Up documented in this encounter [facility] 02-28-2022 Instructions Mirza Daniel - 02/28/2022 9:45 [...] as well if you have any questions/concerns [phone], ask for Podiatry Nurse documented in this encounter [facility] 02-26-2022 Miscellaneous Notes Phone call placed patient [...] things are happening please let me know. Edmond Mason PA-C TC to pt, left message to return call to office. Guanakito Edwards LPN What? You can't read my mind ;) ? I think I wanted to make sure she saw need for repeat labs in 3 months. Thanks, Jayjay Ferrer PA-C Telephone on 02/22/22 HGB A1C COMP METABOLIC PANEL documented in this encounter [facility] 02-21-2022 Instructions Edmond Ferrer PA-C - 02/21/2022 9:46 AM EDT [...] and off. Desvenlafaxine: Patient drug information Access [employer] for additional drug information, tools, and databases. Copyright 9007-4613 [employer]. All rights reserved. (For additional information see [...] much, and when it happened. Last Reviewed [id number] Consumer Information Use and Disclaimer This information [...] of this information is governed by the [employer] User License Agreement, available at https://www.[employer].GIGAS/en/so lutions/Sleepy's/about/lalit. 2020 [employer]. and its affiliates and/or licensors. All rights reserved. Use of [employer] is subject to the Subscription and License Agreement. Topic 73445 Version 147.0 documented in this encounter [facility] 02-21-2022 History of Present illness Narrative 41 [...] Cecily 65 - 100 mg/dL 82 BUN, [place] 10 - 25 mg/dL 17 Total Protein, Cecily 6.0 - 8.4 g/dL 7.2 Albumin, Cecily 3.5 - 5.0 g/dL 4.2 Globulin, [place] 1.5 - 4.5 g/dL 3.0 Bilirub, Tot, [place] 0.00 - 1.50 mg/dL 0.19 Sodium, Cecily 132 - 148 mmol/L 139 Potassium, [place] 3.5 - 5.0 mmol/L 4.2 Chloride, [place] 98 - 110 mmol/L 103 CO2, [place] 23.0 - 32.0 mmol/L 30.8 Alk Phos, Cecily 40 - 150 U/L 57 AST, [place] 7 - 40 U/L 17 ALT, [place] 0 - 45 U/L 32 Calcium, [place] 8.5 - 10.5 mg/dL 8.5 Creatinine, Cecily [...] >60 eGFR-All Other Races . >60 Glucose, [place] 65 - 100 mg/dL 82 BUN, [place] 10 - 25 mg/dL 17 Total Protein, Cecily 6.0 - 8.4 g/dL 7.2 Albumin, Cecily 3.5 - 5.0 g/dL 4.2 Globulin, Cecily 1.5 - 4.5 g/dL 3.0 Bilirub, Tot, Cecily 0.00 - 1.50 mg/dL 0.19 Sodium, Cecily 132 - 148 mmol/L 139 Potassium, Cecily 3.5 - 5.0 mmol/L 4.2 Chloride, Cecily 98 - 110 mmol/L 103 CO2, Cecily 23.0 - 32.0 mmol/L 30.8 Alk Phos, [place] 40 - 150 U/L 57 AST, [place] 7 - 40 U/L 17 ALT, [place] 0 - 45 U/L 32 Calcium, Cecily 8.5 - 10.5 mg/dL 8.5 Creatinine, Cecily 0.7 - 1.4 mg/dL 0.8 Depressive disorder Current medications: Buspirone 30 mg twice daily Sertraline 25 mg day 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 Current medications: Celecoxib [...] Follow-up in 4 weeks on med changes. Edmond Ferrer PA-C documented in this encounter [facility] 02-07-2022 Instructions David Alba APRN.[facility] - 02/07/2022 10:26 AM EDT How to [...] concerning to you. documented in this encounter [facility] 02-07-2022 History of Present illness Narrative Subjective HPI Nontoxic-appearing female presents urgent care chief complaint URI-like symptoms. Duration of symptoms 4 days. Associated symptoms cough chest congestion nasal congestion ear congestion and sneezing. States son had similar signs and symptoms late last week. He has since improved. Denies any OTC medications today. States symptoms are not worsening not improving. 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 Nose: Congestion present. Mouth/Throat: Lips: [place]. Mouth: Mucous membranes are moist. Pharynx: Oropharynx [...] of care. This note was generated using [employer]ision [employer] software. It may contain errors in wording, punctuation, or spelling. David Alba APRN.KIMO documented in this encounter [facility] 01-31-2022 Miscellaneous Notes Call to pt and notified of results below, pt scheduled for toenail removal. ----- Message from Mirza Daniel sent at 01/31/2022 12:47 PM EDT ----- Please call patient to inform her that her circulation is normal. If she would like to have the toenails removed, she can make follow-up to do so Mirza Daniel DPM documented in this encounter [facility] 01-29-2022 Miscellaneous Notes Patient has been identified [...] Myranda Ruiz LPN documented in this encounter [facility] 01-25-2022 Instructions Mirza María - 01/25/2022 10:16 AM EDT Diabetes Foot [...] (or decreased sensation in your feet) a cleaning laborer should always cut your toenails. Be Careful [...] Go to your health care provider or cleaning laborer to treat these conditions. documented in this encounter [facility] 01-25-2022 History of Present illness Narrative Consultation [...] 11/08/2019 6.4 01/23/2019 6.0 08/17/2018 5.9 PCP: Edmond Ferrer PA-C PAST MEDICAL HISTORY Diagnosis Date [...] Objective: Patient presents to clinic ambulating in [facility] Constitutional: Pt is a well [...] Diabetic Foot Check documented in this encounter [facility] 12-05-2021 History of Present illness Narrative Radiology [...] 2021 8:33 AM documented in this encounter [facility] 12-03-2021 Miscellaneous Notes Talked with patient about xray results. Placed a podiatry consult in for follow up due to patient still experiencing pain. Patient will call and follow up with podiatry. documented in this encounter [facility] 12-01-2021 History of Present illness Narrative Radiology [...] 2021 11:31 AM documented in this encounter [facility] 12-01-2021 History of Present illness Narrative Patient [...] Felix Traore MD documented in this encounter [facility] 08-02-2021 History of Present illness Narrative Radiology [...] 2021 7:32 PM documented in this encounter [facility] 11-29-2018 History of Past i llness Narrative [...] of this encounter (statuses as of 12/01/2021) [facility] History of Past illness Narrative* Problem Noted [...] of this encounter (statuses as of 12/03/2021) [facility] History of Past illness Narrative* Problem Noted [...] of this encounter (statuses as of 12/06/2021) [facility] History of Past illness Narrative* Problem Noted [...] of this encounter (statuses as of 12/06/2021) [facility] History of Past illness Narrative* Problem Noted [...] of this encounter (statuses as of 01/25/2022) [facility] of [facility] illness Narrative* Problem Noted [...] of this encounter (statuses as of 01/29/2022) [facility] of [facility] illness Narrative* Problem Noted [...] of this encounter (statuses as of 01/31/2022) [facility] History of Past illness Narrative* Problem Noted [...] of this encounter (statuses as of 02/07/2022) [facility] of Past illness Narrative* Problem Noted [...] of this encounter (statuses as of 02/21/2022) [facility] of [facility] Narrative* Problem Noted [...] of this encounter (statuses as of 02/28/2022) [facility] of [facility] Narrative* Problem Noted [...] of this encounter (statuses as of 03/09/2022) [facility] of [facility] Narrative* Problem Noted [...] of this encounter (statuses as of 03/12/2022) [facility] Narrative* Problem Noted [...] of this encounter (statuses as of 03/12/2022) [facility] of [facility] Narrative* Problem Noted [...] of this encounter (statuses as of 03/14/2022) [place] [address] History of Past illness Narrative* Problem Noted [...] of this encounter (statuses as of 06/21/2022) [facility] Narrative* Problem Noted [...] of this encounter (statuses as of 07/24/2022) [facility] of Past illness Narrative* Problem Noted [...] of this encounter (statuses as of 09/19/2022) [facility] of Past illness Narrative* Problem Noted [...] of this encounter (statuses as of 11/25/2022) [facility] Narrative* Problem Noted [...] of this encounter (statuses as of 01/29/2023) [facility] Narrative* Problem Noted [...] of this encounter (statuses as of 04/02/2023) [facility] Narrative* Problem Noted [...] of this encounter (statuses as of 11/16/2023) [facility] Narrative* Problem Noted [...] of this encounter (statuses as of 12/08/2023) [facility] Narrative* Problem Noted [...] of this encounter (statuses as of 12/16/2023) [facility] of Past [facility] Narrative* Problem Noted [...] of this encounter (statuses as of 11/01/2023) [facility] Ankit Saravia [facility] Note Date/Time February 20, 2025 12:2 9pm [facility] Medical Records Department [address] [place] [address] Emergency Department Summary 02/20/25 MR#: [id number] Acct: [id number] Name: DAVIDANA L Rep #:[id number] : 1980 45 From: Ankit Stephens PCP: Myranda Dallas, EVY Status:REG ER Location: ED HPI History of Present Illness Chief Complaint: Abd Pain PFSH PFS Medical History Injury of back Wears glasses Depression Anxiety Fatty liver High cholesterol Restless legs Back pain Smoker Leg cramps History of echocardiogram Polycystic ovaries History of pneumonia History of gallstones Migraines Diabetes Home Medications ?Medication ?Instructions ?Recorded ?Last Taken ?Type buspirone 30 mg tablet 30 mg PO BID 05/02/18 History tizanidine 4 mg tablet 4 mg PO Q8H PRN muscle spast icity 05/02/18 02/19/25 History multivitamin 1 tab PO DAILY 11/24/1804/01 History Held on 02/20/25. Instructions: MD Ordered simvastatin 40 mg tablet 40 mg PO QHS 05/19/21 History omega-3 fatty acids 1,000 mg 1,200 mg PO BID 06/12/21 04/10/24 History capsule (Fish Oil Concentrate) Held on 02/20/25. Instructions: MD Ordered cholecalciferol (vitamin D3) 125 125 mcg PO DAILY 04/02 Unknown History mcg (5,000 unit) tablet (Vitamin D3) Held on 02/20/25. Instructions: MD Ordered metformin 1,000 mg tablet 1,000 mg PO BID 04/20/24 History amitriptyline 100 mg tablet 100 mg PO QHS 02/20/25 History docusate sodium 100 mg capsule 100 mg PO BID 02/20/25 02/19/25 History empagliflozin 25 mg tablet 25 mg PO DAILY 02/20/25 Unk nown History (Jardiance) Held on 02/20/25. Instructions: MD Ordered fluorometholone 0.1 % eye 1 drp ophthalmic (eye) BID 0 02/20/25 02/19/25 History drops,suspension hydrocodone-acetaminophen 5-325mg 1 tab PO TID PRN PRN pain 02/20/25 02/20/25 History 5mg-325mg hydroxyzine HCl 10 mg tablet 10 mg PO TID PRN PRN anxi ety 02/20/25 Unknown History naloxone 4 mg/actuation nasal spray 1 spray intranasal PRN PRN opioid 02/20/25 Unknown History overdose propranolol 40 mg tablet 40 mg PO BID 02/20/25 History sennosides 8.6 mg tablet (senna) 8.6 mg PO BID PRN PRN constipation 02/20/25 Unknown History sumatriptan succinate 100 mg See Rx Instructions PO .C OMPLEX 02/20/25 Unknown History tablet (Imitrex) venlafaxine 75 mg capsule,extended 75 mg PO DAILY 01/3102/19/25 History release 24 hr Allergy/AdvReac Type Severity Reaction Status Date / Time doxycycline Allergy Hives Verified 02/20/25 08:19 morphine Allergy Rash Verified 02/20/25 08:19 moxifloxacin HCl (From Allergy Hives Verified 02/20/25 08:19 Avelox) Penicillins (PCN) Allergy Hives Verified 02/20/25 08:19 Surgical History History of colonoscopy History of [...] never substance use type: does not use dillon/zoroastrian: None seatbelt use: always EXAM Physical Exam Const Vital Signs: 02/20/25 08:19 02/20/25 10:18 Temperature 98.0 F Temperature Source Oral Pulse Rate 55 L 60 Respiratory Rate 16 16 Blood Pressure 184/103 H 170/82 H Blood Pressure Mean 130 111 Pulse Ox 98 97 Oxygen Delivery Method Room Air Room Air MDM MDM MDM Narrative Medical decision making narrative: HISTORY OF PRESENT ILLNESS: Chief complaint: Abdominal pain 45-year-old female presents with abdominal pain. She notes she has a known ovarian mass. She states she scheduled for hysterectomy on Friday. She states her abdominal pain worsens suddenly. No she follows with [facility] Dr. Blount. States she has had no vomiting, fever but no significant lower abdominal pain mostly in the right lower quadrant. Notes history of in the past. Denies fever. Denies frequency urgency or dysuria. Notes intermittent constipation and diarrhea. Last bowel movement wasyesterday. No melena or hematochezia noted. No vaginal bleeding or discharge. REVIEW OF SYSTEMS: Pertinent positives: Abdominal pain Pertinent negatives: As per [facility] PHYSICAL EXAM: Nursing triage notes reviewed, Vital signs reviewed Constitutional: please see [facility] HENT: MMM Eyes: Pupils equal round and reactive to light, Extraocular muscles intact Neck: No stridor, no JVD, full neck ROM Lungs: Clear to auscultation, No wheezing or rales. No increased work of breathing, no conversational dyspnea, no accessory muscle use, no nasal flaring. No respiratory distress noted Heart: Regular rate and rhythm, No murmurs, No rubs and No gallops, 2+ distal pulses (radial, femoral, posterior tibial) in all extremities Abdomen: Soft, diffuse TTP mostly right lower quadrant, no rigidity, rebound orguarding, no obvious peritoneal signs, no palpable pulsatile abdominal masses, no auscultated abdominal bruit : No CVAT Extremities: No edema Neuro: No new focal neurological deficits, cranial nerves II through XII intact,5/5 strength in all present extremities. Intact sensation to light touch in all present extremities, 2+ reflexes bilateral patella tendons. Skin: No rash or lesions noted MEDICAL DECISION MAKING: Chief Complaint: please see [facility] External records reviewed: Reviewed prior imaging studies: Reviewed CT scan abdomen pelvis from January 17, 2025 which showed heterogeneous lesion in the rectouterine pouch measuring 6.9 cm favored to be uterine or ovarian origin. Pelvic ultrasound from the same date showed findings concerning for high risk malignancy. Reviewed Clinisync: Reviewed the patient's [facility] oncologist Dr. Aaron Blount [facility]. Factors affecting care: Ovarian mass, type diabetes, hypertension, obesity Social determinants of health: none History obtained from others: none Consults: NUT THREADER/ONC -Dr. Brody recommended discharge with oral pain medicine. States she likely has an ovarian torsion. She states that the patient did not want to preserve fertility at this would not be an emergency would not be an indication to expedite surgery. States she would gladly accept the patient transfer if the patient wanted to be admitted but likely not get surgery until previously scheduled time. [facility] Narrative: The patient was initially hypertensive with an initial blood pressure of 184/103however she was afebrile and nontoxic-appearing. Exam with right lower quad TTP. Likely pain from mass however cannot rule out other etiologies including abscess or appendicitis. I considered the following differential diagnosis: AAA, small bowel obstruction,abdominal perforation, appendicitis, pancreatitis, hepatobiliary pathology (acute cholecystitis), mesenteric ischemia, pathology (ie nephrolithiasis, pyelonephritis) intra-abdominal abscess, mass. Initially resuscitated the patient with IV fluids, Zofran, Dilaudid (morphine allergy, also gave 25 mg of IV Benadryl to prevent allergic response) ALL IMAGES (IF OBTAINED) HAVE BEEN PERSONALLY REVIEWED AND INTERPRETED BY MYSELF. CBC leukocytosis suggestive of systemic summation, no anemia or thrombocytopenia CMP without evidence of acute kidney injury, significant electrolyte abnormality, anion gap to suggest end organ hypo-perfusion, no evidence of metabolic acidosis with a normal bicarbonate, no evidence of hepatobiliary obstructive pathology. Lactate is wnl indicating no end-organ hypoperfusion and/or hypoxia. Lipase is wnl indicating no pancreatic inflammation. Urine test is CT of the abdomen/pelvis shows The mass now measures at least 9.6 x 5.7 cm (coronal image 61), previously measuring 6.9 x 3.8 cm on prior imaging when measured in a similar fashion. Trace ascites within the pelvic cul-de-sac, increased since prior examination. The uterus and left ovary are grossly unremarkable. Upon reevaluation patient's blood pressure improved 159/94. Her pain was improved after Dilaudid. Discussed transfer versus discharge. Patient was alert and orient x 3 and had capacity to make all medical systems chose to be discharged with oral Dilaudid pain medication for home control. Strict return precautions were discussed. Gynecology oncology follow-up was recommended. The patient and/or family, caregivers express understanding. The patient and/orfamily, caregivers agrees with the plan. Shared decision making: I will have a discussion with the patient and or visitors regarding risk/benefits of further testing or admission. They will be made aware of of the risk/benefits inherent in this decision they will be given the opportunity to voice understanding. Total critical care time today provided was at least 0 minutes. This excludes separately billable procedures. Critical care time (if documented) is secondary to the patient having high probability of clinically significant/life threatening deterioration in the patient's condition which required my urgent intervention. Impression: 1. Acute abdominal pain 2. History of ovarian mass Dispo: discharge home This note was generated with CompareMyFareation software. It may contain incorrectwords, spelling, and punctuation that were not noted in review of the chart prior to signing. Lab Data Labs: Laboratory Results - last 24 hr 02/20/25 02/20/25 09:00 09:30 WBC 13.1 H RBC 4.31 Hgb 13.6 Hct 40.1 MCV 93.0 MCH 31.6 MCHC 33.9 RDW Std Deviation 40.1 RDW Coeff of Sweta 11.9 Plt Count 332 MPV 10.6 Immature Gran % (Auto) 0.200 Neut % (Auto) 52.1 Lymph % (Auto) 36.8 [place] % (Auto) 6.0 Eos % (Auto) 4.4 Baso % (Auto) 0.5 Absolute Neuts (auto) 6.8 Absolute Lymphs (auto) 4.81 H Nucleated RBC % 0 Sodium 138 Potassium 4.1 Chloride 103 Carbon Dioxide 21.4 Anion Gap 13 BUN 11 Creatinine 0.90 Estim Creat Clear Calc 81.72 Est GFR (MDRD) Non-Af 81 BUN/Creatinine Ratio 12.4 Glucose 188 H Lactic Acid 1.7 Calcium 9.4 Total Bilirubin 0.30 AST 25 ALT 36 H Alkaline Phosphatase 80 Total Protein 7.8 Albumin 4.3 Globulin 3.5 Albumin/Globulin Ratio 1.2 Lipase 66 Urine Color Yellow Urine Clarity Clear Urine pH 6.5 Ur Specific [place] 1.010 Urine Protein 15 H Urine Glucose (UA) 1000 H Urine Ketones Negative Urine Occult Blood 10 H Urine Nitrite Negative Urine Bilirubin Negative Urine Urobilinogen Normal Ur Leukocyte Esterase 500 H Urine RBC 0 SEEN Urine WBC 0-5 SEEN Ur Squamous Epith Cells 0-5 SEEN Urine Bacteria 0 SEEN Urine Mucus 0 SEEN Urine Test Negative Radiography Diagnostic Testing: Clinical Impression(s) from Imaging Studies Abdomen/Pelvis CT 02/20/25 09:55 IMPRESSION: 1. No acute abdominopelvic finding. 2. 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 Discussed with Dr. Saravia, who notes patient has surgical removal scheduled on Friday. 3. No lymphadenopathy. Trace pelvic ascites, of indeterminate etiology. Reading Location: [id number] Discharge Plan Triage Chief Complaint: Abd Pain ED Provider: Ankit Saravia Dx/Rx/DC Orders Prescriptions: No Action multivitamin tablet 1 tab PO DAILY omega-3 fatty acids [Fish Oil Concentrate] 1,000 mg capsule 1,200 mg PO BID tizanidine 4 MG tablet 4 mg PO Q8H PRN (Reason: muscle spasticity) Patient Comments: take 1 tablet by mouth twice a day if needed buspirone 30 MG tablet 30 mg PO BID Patient Comments: take 1 tablet by mouth twice a day simvastatin 40 mg tablet 40 mg PO QHS Patient Comments: take 1 tablet by mouth at bedtime hydrocodone-acetaminophen 5-325 mg tablet 1 tab PO TID PRN PRN (Reason: pain) docusate sodium 100 mg capsule 100 mg PO BID amitriptyline 100 mg tablet 100 mg PO QHS Jardiance 25 mg tablet 25 mg PO DAILY naloxone 4 mg/actuation spray,non-aerosol 1 spray INTRANASAL PRN PRN (Reason: opioid overdose) sennosides [senna] 8.6 mg tablet 8.6 mg PO BID PRN PRN (Reason: constipation) venlafaxine 75 mg capsule,extended release 24hr 75 mg PO DAILY propranolol 40 mg tablet 40 mg PO BID hydroxyzine HCl 10 mg tablet 10 mg PO TID PRN PRN (Reason: anxiety) fluorometholone 0.1 % drops,suspension 1 drp ophthalmic (eye) BID sumatriptan succinate [Imitrex] 100 mg tablet See Rx Instructions .ROUTE .COMPLEX Rx Instructions: take 1 tab at onset of headache; if no relief, may repeat 1 tab after at least 2 hrs; max = 2 tabs/24 hrs metformin 1,000 mg tablet 1,000 mg PO BID cholecalciferol (vitamin D3) [Vitamin D3] 125 mcg (5,000 unit) tablet 125 mcg PO DAILY Primary Care Provider: Myranda Dallas Referrals: Myranda Dallas CNS [Primary Care Provider] - Print Language: Ecuadorean What to do if you have Problems For any increased pain, shortness of breath, bleeding, nausea or vomiting, chestpain, or any unexpected problems, contact your Primary Care Provider. Call [facility] ([phone]) or report to the closest Emergency Room. Call 911 if necessary. 02/20/25 1229 <Electronically signed by Ankit Saravia DO> Cosigner Signature (if applicable): CC: EVY Dallas ~ Signed [facility] Work Phone: Evaluation note* Diagnosis Foot pain, left- Primary Pain in limb [facility] Diagnosis Foot pain, left- Primary Pain in limb [facility] Diagnosis Abnormal mammogram Abnormal mammogram, unspecified [facility] Diagnosis Abnormal mammogram Abnormal mammogram, unspecified [facility] Diagnosis Onychodystrophy- Primary Other specified disease of nail Diminished pulse Other symptoms involving cardiovascular system Controlled type 2 diabetes mellitus without complication, without long-term current use of insulin (HCC) [facility] Diagnosis Migraine without aura and without status migrainosus, not intractable Migraine without aura, without mention of intractable migraine without mention of status migrainosus [facility] Diagnosis Viral illness- Primary Unspecified viral infection, in conditions classified elsewhere and of unspecified site [facility] Diagnosis Controlled type 2 diabetes mellitus [...] of unspecified site [facility]* Diagnosis Onychodystrophy- Primary Other specified disease of nail [facility]* Diagnosis Controlled type 2 diabetes mellitus without complication, without long-term current use of insulin (HCC)- Primary Elevated liver enzymes Other nonspecific abnormal serum enzyme levels [facility]* Diagnosis Depressive disorder Depressive disorder, not elsewhere classified Controlled type 2 diabetes mellitus without complication, without long-term current use of insulin (HCC) [facility] Diagnosis Fatty liver Other chronic nonalcoholic liver disease [facility] Diagnosis Open wound of toe, initial encounter- Primary [facility] Diagnosis Migraine without aura and without status migrainosus, not intractable Migraine without aura, without mention of intractable migraine without mention of status migrainosus [facility] Diagnosis Controlled type 2 diabetes mellitus without complication, without long-term current use of insulin (HCC) Fatty liver Other chronic nonalcoholic liver disease [facility]* Diagnosis Depressive disorder Depressive disorder, not elsewhere classified [facility] Diagnosis Migraine without aura and without status migrainosus, not intractable Migraine without aura, without mention of intractable migraine without mention of status migrainosus Depressive disorder Depressive disorder, not elsewhere classified [facility] Diagnosis Viral illness- Primary Unspecified viral infection, in conditions classified elsewhere and of unspecified site [facility] Diagnosis Controlled type 2 diabetes mellitus without complication, without long-term current use of insulin (HCC) Migraine without aura and without status migrainosus, not intractable Migraine without aura, without mention of intractable migraine without mention of status migrainosus Depressive disorder Depressive disorder, not elsewhere classified [facility]* Diagnosis Menorrhagia with irregular cycle- Primary Excessive or frequent menstruation Dysmenorrhea [facility] Diagnosis Menorrhagia with irregular cycle Excessive or frequent menstruation [facility] Diagnosis Menorrhagia with irregular cycle- Primary Excessive or frequent menstruation [facility]* Diagnosis Menorrhagia with irregular cycle- Primary Excessive or frequent menstruation [facility]* Diagnosis Irregular bleeding- Primary Irregular menstrual cycle [facility]* Diagnosis Menorrhagia with irregular cycle- Primary Excessive or frequent menstruation Endometrial polyp Polyp of corpus uteri Visit for pre-operative examination Preoperative examination, unspecified [facility] Diagnosis Post-operative state- Primary Other postprocedural status [facility] Diagnosis Anxiety with depression- Primary Controlled type 2 diabetes mellitus without complication, without long-term current use of insulin (HCC) Dysmenorrhea [facility] Diagnosis Hypomagnesemia- Primary Disorders of magnesium metabolism [facility] Diagnosis Controlled type 2 diabetes mellitus without complication, without long-term current use of insulin (HCC) [facility] Diagnosis Hypomagnesemia- Primary Disorders of magnesium metabolism Abnormal LFTs Other abnormal blood chemistry Preop examination Preoperative examination, unspecified documented [facility]* Diagnosis Leukocytosis, unspecified type- Primary Hypomagnesemia Disorders of magnesium metabolism [facility]* Diagnosis DUB (dysfunctional uterine bleeding)- Primary Other disorder of menstruation and other abnormal bleeding from female genital tract Excessive bleeding in premenopausal period Premenopausal menorrhagia Class 2 obesity with body mass index (BMI) of 36.0 to 36.9 in adult, unspecified obesity type, unspecified whether serious comorbidity present documented [facility]* Diagnosis Leukocytosis, unspecified type- Primary LFT elevation Other abnormal blood chemistry Lymphocytosis Lymphocytosis (symptomatic) documented in this [facility]* Diagnosis Post-operative state- Primary Other postprocedural status Vaginal discharge Leukorrhea, not specified as infective Constipation, unspecified constipation type Chronic pelvic pain in female Unspecified symptom associated with female genital organs DUB (dysfunctional uterine bleeding) Other disorder of menstruation and other abnormal bleeding from female genital tract [facility]* Diagnosis BV (bacterial vaginosis)- Primary Vaginitis and vulvovaginitis, unspecified [facility] Diagnosis Elevated ferritin- Primary Other abnormal blood chemistry documented [facility]* Diagnosis Foot pain, left Pain in limb documented [facility] Diagnosis Pain of right thumb Pain in limb documented [facility]* Diagnosis Migraine without aura and without status migrainosus, not intractable Migraine without aura, without mention of intractable migraine without mention of status migrainosus documented [facility]* Diagnosis Controlled type 2 diabetes mellitus without complication, without long-term current use of insulin (HCC) Migraine without aura and without status migrainosus, not intractable Migraine without aura, without mention of intractable migraine without mention of status migrainosus Depressive disorder Depressive disorder, not elsewhere classified documented [facility]* Diagnosis Palpitations- Primary Migraine without aura [...] and behavioral disorders documented in this encounter [facility] note* Diagnosis Controlled type 2 diabetes mellitus without complication, without long-term current use of insulin (HCC)- Primary Hypomagnesemia Disorders of magnesium metabolism documented in this encounter [facility] note* Diagnosis JESSE (generalized anxiety disorder)- Primary Generalized anxiety disorder Anxiety with depression Controlled type 2 diabetes mellitus without complication, without long-term current use of insulin (HCC) Fatty liver Other chronic nonalcoholic liver disease Panic disorder Panic disorder without agoraphobia Hypomagnesemia Disorders of magnesium metabolism documented in this encounter [facility] noteNo assessment information availableWAdena [facility] Work Phone: Evaluation note* Diagnosis Acute right-sided low back pain without sciatica- Primary Abdominal pain, unspecified abdominal location [facility]* Diagnosis Ovarian mass, right- Primary Intra-abdominal and pelvic swelling, mass and lump, unspecified site- Primary documented in this encounter [facility] note* Diagnosis Ovarian mass, right- Primary Ovarian mass- Primary Unspecified noninflammatory disorder of ovary, fallopian tube, and broad ligament documented [facility] this [facility]* Diagnosis Ovarian mass, right- Primary Intra-abdominal and pelvic swelling, mass and lump, unspecified site Preop examination- Primary Preoperative examination, unspecified Ovarian mass, right Mixed hyperlipidemia Tobacco use disorder Controlled type 2 diabetes mellitus without complication, without long-term current use of insulin (HCC) Ovarian mass Unspecified noninflammatory disorder of ovary, fallopian tube, and broad ligament documented in this encounter [facility] note* Diagnosis Ovarian mass, right- Primary Preop [...] Plan Note - Janel Garcia APRN.CNP - 02/17/2025 11:52 AM EDT Associated Problem(s): [...] * Assessment & Plan Note - Janel Garcai APRN.CNP - 02/11/2025 4:34 PM EDT Associated Problem(s): Preop examination Patient has the following medical conditions which may affect lupis-operative course addressed in assessment and plan today. documented in this encounter [facility] course Narrative No data available for this section [facility] Hospital Discharge instructions Additional Instructions The ultrasound again showed a right ovarian mass. There is blood flow to it so there is no ovarian torsion. This needs evaluated by oncology to rule out cancer. Since you are in pain management I cannot prescribe narcotics. You should call your pain management physician tomorrow to tell them about this new medical issue.[facility] Work Phone: Hospital Discharge instructions Additional Instructions Thank you for trusting us with your care today! Your pain is likely secondary to enlarging mass. I did discuss the case with the gynecology oncology department at [facility] Spoke to Dr. Brody who noted he would likely not be a candidate for immediate surgery but encouraged her to continue to follow-up at your already scheduled surgical time. Please take Tylenol (2 pills, 650 mg), ibuprofen (2 pills, 400 mg) every 6 hours as needed for pain and fever control. Please take p.o. Dilaudid as prescribed. Please return to the emergency department if your symptoms change or worsen. Please follow with your primary care physician for further outpatient evaluation and management.[facility] Work Phone: Reason for referral (narrative)* Diagnostic Procedure Only (Routine) - Closed Specialty Diagnoses / Procedures Referred By Contac t Referred To Contact XR IMAGING Diagnoses Foot pain, left Procedures XR FOOT GENERAL 3V AP/LAT/OBL LEFT RADEX FOOT COMPLETE MINIMUM 3 VIEWS Felix Traore MD [address] [facility] [place] [address] Xr Imaging Referral ID Status Reason Start Date Expiration Date V isits Requested Visits Authorized [id number] Closed Auto-Generate d Referral 12/01/2021 12/31/2022 1 1 T [facility] for referral (narrative)* Outpatient Procedure (Routine) - Authorized Specialty Diagnoses / Procedures Referred By Contac t Referred To Contact [facility] Diagnoses Onychodystrophy Diminished pulse Controlled type 2 diabetes mellitus without complication, without long-term current use of insulin (HCC) Procedures PVR ANK PRESS RAMU VAS LAB NON-INVAS PHYSIOLOGIC STD EXTREMITY ART 2 LEVEL Mirza Daniel [address] [place] [address] [facility] [address] [place] [address] Referral ID Status Reason Start Date Expiration Date Visits Requested Visits Authorized [id number] Authorized Auto-Generat ed Referral 01/25/2022 01/25/2023 1 1 [facility] for referral (narrative)* Diagnostic Procedure Only (Routine) - Authorized Specialty Diagnoses / Procedures [facility] Referred To Contact US IMAGING Diagnoses Menorrhagia with irregular cycle Procedures US FEMALE PELVIS TRANSVAG US TRANSVAGINAL Samanta Dobson APRN.CNP [address] [place] [address] Us Imaging [facility] Referral ID Status Reason Start Date Expiration Date Visits Requested Visits Authorized [id number] Authorized Auto-Generat ed Referral 12/16/2023 01/14/2025 1 1 [facility] for referral (narrative)* Diagnostic Procedure Only (Routine) - Pending Review Specialty Diagnoses / Procedures [facility] Referred To Contact BR IMAGING Procedures KEVAN SCREENING W ALVARO SCREENING DIGITAL BREAST TOMOSYNTHESIS BI SCREENING MAMMOGRAPHY BI 2-VIEW BREAST INC CAD Edmond Ferrer PA-C [address] [place] [address] [facility] [address] [place] [address] Referral ID Status Reason Start Date Expiration Date Visits Requested Visits Authorized [id number] Pending Review Auto-Generat ed Referral 12/31/2023 01/29/2025 1 1 [facility] for referral (narrative)* Outpatient Procedure (Routine) - Pending Review Specialty Diagnoses / Procedures Referred By Contac t Referred To Contact [facility] Diagnoses Menorrhagia with irregular cycle Procedures ENDOMETRIAL BIOPSY ENDOMETRIAL BX W/WO ENDOCERVIX BX W/O DILAT SPX Zheng Luna MD [address] [place] [address] [facility] [address] [place] [address] Referral ID Status Reason Start Date Expiration Date Visits Requested Visits Authorized [id number] Pending Review Auto-Generat ed Referral 01/12/2024 01/11/2025 1 1 [facility] for referral (narrative)* Outpatient Procedure (Routine) - Closed Specialty Diagnoses / Procedures Referred By Contac t Referred To Contact [facility] Diagnoses Menorrhagia with irregular cycle Procedures ENDOMETRIAL BIOPSY ENDOMETRIAL BX W/WO ENDOCERVIX BX W/O DILAT SPX Samanta Dobson APRN.CNP [address] [place] [address] [facility] [address] [place] [address] Referral ID Status Reason Start Date Expiration Date V isits Requested Visits Authorized [id number] Closed Auto-Generate d Referral 01/08/2024 01/07/2025 1 1 [facility] for referral (narrative)* Diagnostic Procedure Only (Routine) - Closed Specialty Diagnoses / Procedures Referred By Contac t Referred To Contact XR IMAGING Diagnoses Foot pain, left Procedures XR FOOT GENERAL 3V AP/LAT/OBL LEFT RADEX FOOT COMPLETE MINIMUM 3 VIEWS Felix Traore MD [address] [place] [address] [place] [address] Referral ID Status Reason Start Date Expiration Date V isits Requested Visits Authorized [id number] Closed Auto-Generate d Referral 12/01/2021 12/31/2022 1 1 [facility] for referral (narrative)* Diagnostic Procedure Only (Urgent) - Closed Specialty Diagnoses / Procedures Referred By Contac t Referred To Contact XR IMAGING Diagnoses Pain of right thumb Procedures XR DIGIT GENERAL 3V FRONTAL/LAT/OBL RIGHT X-RAY EXAM OF FINGER(S) Mel Callahan APRN.CNP [address] [place] [address] [place] [address] Referral ID Status Reason Start Date Expiration Date V isits Requested Visits Authorized [id number] Closed Auto-Generate d Referral 08/02/2021 09/01/2022 1 1 [facility] for referral (narrative)No reason for referral information availableWAdena Regional Medical Center Work Phone: Reason for visit Narrative* Diagnostic Procedure Only (Routine) - Closed Specialty Diagnoses / Procedures Referred By Contac t Referred To Contact BR IMAGING Diagnoses Abnormal mammogram Procedures KEVAN DIAGNOSTIC BILAT DIAGNOSTIC MAMMOGRAPHY COMPUTER-AIDED DETCJ Ronen Pineda MD [address] [place] [address] [facility] [address] [place] [address] Referral ID Status Reason Start Date Expiration Date V isits Requested Visits Authorized [id number] Closed Auto-Generate d Referral 11/05/2021 06/07/2022 1 1 [facility] for visit Narrative* Diagnostic Procedure Only (Routine) - Closed Specialty Diagnoses / Procedures Referred By Contac t Referred To Contact BR IMAGING Procedures KEVAN SCREENING W ALVARO SCREENING DIGITAL BREAST TOMOSYNTHESIS BI SCREENING MAMMOGRAPHY BI 2-VIEW BREAST INC CAD Edmond Ferrer PA-C [address] [place] [address] [facility] [address] [place] [address] Referral ID Status Reason Start Date Expiration Date V isits Requested Visits Authorized [id number] Closed Auto-Generate d Referral 12/31/2023 01/29/2025 1 1 [facility] for visit Narrative* Diagnostic Procedure Only (Routine) - Closed Specialty Diagnoses / Procedures Referred By Contac t Referred To Contact XR IMAGING Diagnoses Foot pain, left Procedures XR FOOT GENERAL 3V AP/LAT/OBL LEFT RADEX FOOT COMPLETE MINIMUM 3 VIEWS Felix Traore MD [address] [place] [address] [place] [address] Referral ID Status Reason Start Date Expiration Date V isits Requested Visits Authorized [id number] Closed Auto-Generate d Referral 12/01/2021 12/31/2022 1 1 [facility] for visit Narrative* Diagnostic Procedure Only (Urgent) - Closed Specialty Diagnoses / Procedures Referred By Contac t Referred To Contact XR IMAGING Diagnoses Pain of right thumb Procedures XR DIGIT GENERAL 3V FRONTAL/LAT/OBL RIGHT X-RAY EXAM OF FINGER(S) Mel Callahan, ANNUAL GREENHOUSE MANAGER [address] [place] [address] [place] [address] Referral ID Status Reason Start Date Expiration Date V isits Requested Visits Authorized [id number] Closed Auto-Generate d Referral 08/02/2021 09/01/2022 1 1 [facility] Summary Purpose Family History Relationship Condition Age at Onset Recorded Date/T jorden Unknown Family History?Diabetes Unknown Chucky johnson 2018 2:13pm Family History?Diabetes Unknown Chucky johnson 2018 2:13pm Family History?Diabetes Unknown May 10:31am Advance Directives Documents on File Type Date Recorded 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 No January 17, 2025 7:00pm Advance Directive Response Recorded Date/ Time Do you have a Healthcare Power of Territory Sales Representative? No January 30, 2025 2:19pm Do you have a Healthcare Power of Territory Sales Representative? No January 17, 2025 7:00pm Advance Directive Response Recorded Date/ Time Do you have a Healthcare Power of Territory Sales Representative? No January 30, 2025 2:19pm Do you have a Healthcare Power of Territory Sales Representative? No February 20, 2025 10:32am Do you have a Healthcare Power of Territory Sales Representative? No January 17, 2025 7:00pm Reason for Referral Specialty Diagnoses / Procedures Referred By Contac t Referred To Contact Podiatry Diagnoses Foot pain, left Procedures CONSULT TO PODIATRY OFFICE/OUTPATIENT [facility] 60-74 MINUTES Lillie Josue APRN.ANNUAL GREENHOUSE MANAGER [address] [place] [address] Referral ID Status Reason Start Date Expiration Date Visits Requested Visits Authorized [id number] Authorized PCP Requested Referral 12/03/2021 12/03/2022 1 1 Specialty Diagnoses / Procedures Referred By Contac t Referred To Contact Hematology Diagnoses Leukocytosis, unspecified type Procedures CONSULT TO HEMATOLOGY OFFICE/OUTPATIENT [facility] 60 MINUTES Myranda Dallas APRN.ANNUAL GREENHOUSE MANAGER [address] [place] [address] Referral ID Status Reason Start Date Expiration Date Visits Requested Visits Authorized [id number] Authorized PCP Requested Referral 03/16/2024 03/16/2025 1 1 Specialty Diagnoses / Procedures Referred By Contac t Referred To Contact Diagnoses Chronic pelvic pain in female DUB (dysfunctional uterine bleeding) Procedures CONSULT TO MINIMALLY INVASIVE GYNECOLOGIC SURGERY OFFICE/OUTPATIENT [facility] 60 MINUTES Zheng Luna MD [address] [place] [address] Referral ID Status Reason Start Date Expiration Date Visits Requested Visits Authorized [id number] Authorized PCP Requested Referral Auto-Generate d Referral 04/22/2024 04/22/2025 1 1 Health Concerns Infection Onset Date Last Indicated Resolved Time COVID-19 Rule-Out 11/16/2023 11/16/2023 Chief Complaint and Reason for Visit Chief Complaint Admit Date BACK PAIN January 17, 2025 6:26p m Chief Complaint Admit Date BACK PAIN January 17, 2025 6:26p m RLQ ABD. PAIN January 30, 2025 1:51p m Chief Complaint Admit Date BACK PAIN January 17, 2025 6:26p m RLQ ABD. PAIN January 30, 2025 1:51p m abd February 20, 2025 8:18 am Additional Source Comments INFORMATION SOURCE (unrecogn ized section and content) DATE CREATED AUTHOR 03/21/2020 [facility] DATE CREATED AUTHOR AUTHOR'S ORGANIZ ATION 02/10/2023 [facility] ([place]) DATE CREATED AUTHOR AUTHOR'S ORGANIZ ATION 06/26/2024 [facility] DATE CREATED AUTHOR AUTHOR'S ORGANIZ ATION 02/02/2025 [facility] DATE CREATED AUTHOR AUTHOR'S ORGANIZ ATION 02/17/2025 [facility] DATE CREATED AUTHOR AUTHOR'S ORGANIZ ATION 02/18/2025 [facility] DATE CREATED AUTHOR AUTHOR'S ORGANIZ ATION 02/19/2025 [facility] Source Comments (unrecognize d section and content) In the event this informatio n is protected by the Federal Confidentiality of Alcohol and Drug Abuse Patient Records regulations: The Federal rules restrict any use of the information to criminally investigate or prosecute any alcohol or drug abuse patient.[facility] the event this information is protected by the Federal Confidentiality of Alcohol and Drug Abuse Patient Records regulations: The Federal rules restrict any use of the information to criminally investigate or prosecute any alcohol or drug abuse patient.[facility] the event this information is protected by the Federal Confidentiality of Alcohol and Drug Abuse Patient Records regulations: The Federal rules restrict any use of the information to criminally investigate or prosecute any alcohol or drug abuse patient.[facility] HospitalIn the event this information is protected by the Federal Confidentiality of Alcohol and Drug Abuse Patient Records regulations: The Federal rules restrict any use of the information to criminally investigate or prosecute any alcohol or drug abuse patient.[facility] HospitalIn the event this information is protected by the Federal Confidentiality of Alcohol and Drug Abuse Patient Records regulations: The Federal rules restrict any use of the information to criminally investigate or prosecute any alcohol or drug abuse patient.[facility] HospitalIn the event this information is protected by the Federal Confidentiality of Alcohol and Drug Abuse Patient Records regulations: The Federal rules restrict any use of the information to criminally investigate or prosecute any alcohol or drug abuse patient.[facility] HospitalIn the event this information is protected by the Federal Confidentiality of Alcohol and Drug Abuse Patient Records regulations: The Federal rules restrict any use of the information to criminally investigate or prosecute any alcohol or drug abuse patient.[facility] HospitalIn the event this information is protected by the Federal Confidentiality of Alcohol and Drug Abuse Patient Records regulations: The Federal rules restrict any use of the information to criminally investigate or prosecute any alcohol or drug abuse patient.[facility] HospitalIn the event this information is protected by the Federal Confidentiality of Alcohol and Drug Abuse Patient Records regulations: The Federal rules restrict any use of the information to criminally investigate or prosecute any alcohol or drug abuse patient.[facility] HospitalIn the event this information is protected by the Federal Confidentiality of Alcohol and Drug Abuse Patient Records regulations: The Federal rules restrict any use of the information to criminally investigate or prosecute any alcohol or drug abuse patient.[facility] HospitalIn the event this information is protected by the Federal Confidentiality of Alcohol and Drug Abuse Patient Records regulations: The Federal rules restrict any use of the information to criminally investigate or prosecute any alcohol or drug abuse patient.[facility] HospitalIn the event this information is protected by the Federal Confidentiality of Alcohol and Drug Abuse Patient Records regulations: The Federal rules restrict any use of the information to criminally investigate or prosecute any alcohol or drug abuse patient.[facility] HospitalIn the event this information is protected by the Federal Confidentiality of Alcohol and Drug Abuse Patient Records regulations: The Federal rules restrict any use of the information to criminally investigate or prosecute any alcohol or drug abuse patient.[facility] HospitalIn the event this information is protected by the Federal Confidentiality of Alcohol and Drug Abuse Patient Records regulations: The Federal rules restrict any use of the information to criminally investigate or prosecute any alcohol or drug abuse patient.[facility] HospitalIn the event this information is protected by the Federal Confidentiality of Alcohol and Drug Abuse Patient Records regulations: The Federal rules restrict any use of the information to criminally investigate or prosecute any alcohol or drug abuse patient.[facility] HospitalIn the event this information is protected by the Federal Confidentiality of Alcohol and Drug Abuse Patient Records regulations: The Federal rules restrict any use of the information to criminally investigate or prosecute any alcohol or drug abuse patient.[facility] HospitalIn the event this information is protected by the Federal Confidentiality of Alcohol and Drug Abuse Patient Records regulations: The Federal rules restrict any use of the information to criminally investigate or prosecute any alcohol or drug abuse patient.[facility] HospitalIn the event this information is protected by the Federal Confidentiality of Alcohol and Drug Abuse Patient Records regulations: The Federal rules restrict any use of the information to criminally investigate or prosecute any alcohol or drug abuse patient.[facility] HospitalIn the event this information is protected by the Federal Confidentiality of Alcohol and Drug Abuse Patient Records regulations: The Federal rules restrict any use of the information to criminally investigate or prosecute any alcohol or drug abuse patient.[facility] HospitalIn the event this information is protected by the Federal Confidentiality of Alcohol and Drug Abuse Patient Records regulations: The Federal rules restrict any use of the information to criminally investigate or prosecute any alcohol or drug abuse patient.[facility] HospitalIn the event this information is protected by the Federal Confidentiality of Alcohol and Drug Abuse Patient Records regulations: The Federal rules restrict any use of the information to criminally investigate or prosecute any alcohol or drug abuse patient.[facility] HospitalIn the event this information is protected by the Federal Confidentiality of Alcohol and Drug Abuse Patient Records regulations: The Federal rules restrict any use of the information to criminally investigate or prosecute any alcohol or drug abuse patient.[facility] HospitalIn the event this information is protected by the Federal Confidentiality of Alcohol and Drug Abuse Patient Records regulations: The Federal rules restrict any use of the information to criminally investigate or prosecute any alcohol or drug abuse patient.[facility] HospitalIn the event this information is protected by the Federal Confidentiality of Alcohol and Drug Abuse Patient Records regulations: The Federal rules restrict any use of the information to criminally investigate or prosecute any alcohol or drug abuse patient.[facility] HospitalIn the event this information is protected by the Federal Confidentiality of Alcohol and Drug Abuse Patient Records regulations: The Federal rules restrict any use of the information to criminally investigate or prosecute any alcohol or drug abuse patient.[facility] HospitalIn the event this information is protected by the Federal Confidentiality of Alcohol and Drug Abuse Patient Records regulations: The Federal rules restrict any use of the information to criminally investigate or prosecute any alcohol or drug abuse patient.[facility] HospitalIn the event this information is protected by the Federal Confidentiality of Alcohol and Drug Abuse Patient Records regulations: The Federal rules restrict any use of the information to criminally investigate or prosecute any alcohol or drug abuse patient.[facility] HospitalIn the event this information is protected by the Federal Confidentiality of Alcohol and Drug Abuse Patient Records regulations: The Federal rules restrict any use of the information to criminally investigate or prosecute any alcohol or drug abuse patient.[facility] HospitalIn the event this information is protected by the Federal Confidentiality of Alcohol and Drug Abuse Patient Records regulations: The Federal rules restrict any use of the information to criminally investigate or prosecute any alcohol or drug abuse patient.[facility] HospitalIn the event this information is protected by the Federal Confidentiality of Alcohol and Drug Abuse Patient Records regulations: The Federal rules restrict any use of the information to criminally investigate or prosecute any alcohol or drug abuse patient.[facility] HospitalIn the event this information is protected by the Federal Confidentiality of Alcohol and Drug Abuse Patient Records regulations: The Federal rules restrict any use of the information to criminally investigate or prosecute any alcohol or drug abuse patient.[facility] HospitalIn the event this information is protected by the Federal Confidentiality of Alcohol and Drug Abuse Patient Records regulations: The Federal rules restrict any use of the information to criminally investigate or prosecute any alcohol or drug abuse patient.[facility] HospitalIn the event this information is protected by the Federal Confidentiality of Alcohol and Drug Abuse Patient Records regulations: The Federal rules restrict any use of the information to criminally investigate or prosecute any alcohol or drug abuse patient.[facility] the event this information is protected by the Federal Confidentiality of Alcohol and Drug Abuse Patient Records regulations: The Federal rules restrict any use of the information to criminally investigate or prosecute any alcohol or drug abuse patient.[facility] HospitalIn the event this information is protected by the Federal Confidentiality of Alcohol and Drug Abuse Patient Records regulations: The Federal rules restrict any use of the information to criminally investigate or prosecute any alcohol or drug abuse patient.[facility] HospitalIn the event this information is protected by the Federal Confidentiality of Alcohol and Drug Abuse Patient Records regulations: The Federal rules restrict any use of the information to criminally investigate or prosecute any alcohol or drug abuse patient.[facility]In the event this information is protected by the Federal Confidentiality of Alcohol and Drug Abuse Patient Records regulations: The Federal rules restrict any use of the information to criminally investigate or prosecute any alcohol or drug abuse patient.[facility] HospitalIn the event this information is protected by the Federal Confidentiality of Alcohol and Drug Abuse Patient Records regulations: The Federal rules restrict any use of the information to criminally investigate or prosecute any alcohol or drug abuse patient.[facility] HospitalIn the event this information is protected by the Federal Confidentiality of Alcohol and Drug Abuse Patient Records regulations: The Federal rules restrict any use of the information to criminally investigate or prosecute any alcohol or drug abuse patient.[facility] HospitalIn the event this information is protected by the Federal Confidentiality of Alcohol and Drug Abuse Patient Records regulations: The Federal rules restrict any use of the information to criminally investigate or prosecute any alcohol or drug abuse patient.[facility] HospitalIn the event this information is protected by the Federal Confidentiality of Alcohol and Drug Abuse Patient Records regulations: The Federal rules restrict any use of the information to criminally investigate or prosecute any alcohol or drug abuse patient.[facility] HospitalIn the event this information is protected by the Federal Confidentiality of Alcohol and Drug Abuse Patient Records regulations: The Federal rules restrict any use of the information to criminally investigate or prosecute any alcohol or drug abuse patient.[facility] HospitalIn the event this information is protected by the Federal Confidentiality of Alcohol and Drug Abuse Patient Records regulations: The Federal rules restrict any use of the information to criminally investigate or prosecute any alcohol or drug abuse patient.[facility] HospitalIn the event this information is protected by the Federal Confidentiality of Alcohol and Drug Abuse Patient Records regulations: The Federal rules restrict any use of the information to criminally investigate or prosecute any alcohol or drug abuse patient.[facility] HospitalIn the event this information is protected by the Federal Confidentiality of Alcohol and Drug Abuse Patient Records regulations: The Federal rules restrict any use of the information to criminally investigate or prosecute any alcohol or drug abuse patient.[facility] HospitalIn the event this information is protected by the Federal Confidentiality of Alcohol and Drug Abuse Patient Records regulations: The Federal rules restrict any use of the information to criminally investigate or prosecute any alcohol or drug abuse patient.[facility] HospitalIn the event this information is protected by the Federal Confidentiality of Alcohol and Drug Abuse Patient Records regulations: The Federal rules restrict any use of the information to criminally investigate or prosecute any alcohol or drug abuse patient.[facility] HospitalIn the event this information is protected by the Federal Confidentiality of Alcohol and Drug Abuse Patient Records regulations: The Federal rules restrict any use of the information to criminally investigate or prosecute any alcohol or drug abuse patient.[facility] HospitalIn the event this information is protected by the Federal Confidentiality of Alcohol and Drug Abuse Patient Records regulations: The Federal rules restrict any use of the information to criminally investigate or prosecute any alcohol or drug abuse patient.[facility] HospitalIn the event this information is protected by the Federal Confidentiality of Alcohol and Drug Abuse Patient Records regulations: The Federal rules restrict any use of the information to criminally investigate or prosecute any alcohol or drug abuse patient.[facility] HospitalIn the event this information is protected by the Federal Confidentiality of Alcohol and Drug Abuse Patient Records regulations: The Federal rules restrict any use of the information to criminally investigate or prosecute any alcohol or drug abuse patient.[facility] HospitalIn the event this information is protected by the Federal Confidentiality of Alcohol and Drug Abuse Patient Records regulations: The Federal rules restrict any use of the information to criminally investigate or prosecute any alcohol or drug abuse patient.[facility] HospitalIn the event this information is protected by the Federal Confidentiality of Alcohol and Drug Abuse Patient Records regulations: The Federal rules restrict any use of the information to criminally investigate or prosecute any alcohol or drug abuse patient.[facility] HospitalIn the event this information is protected by the Federal Confidentiality of Alcohol and Drug Abuse Patient Records regulations: The Federal rules restrict any use of the information to criminally investigate or prosecute any alcohol or drug abuse patient.[facility] HospitalIn the event this information is protected by the Federal Confidentiality of Alcohol and Drug Abuse Patient Records regulations: The Federal rules restrict any use of the information to criminally investigate or prosecute any alcohol or drug abuse patient.[facility] HospitalIn the event this information is protected by the Federal Confidentiality of Alcohol and Drug Abuse Patient Records regulations: The Federal rules restrict any use of the information to criminally investigate or prosecute any alcohol or drug abuse patient.[facility] HospitalIn the event this information is protected by the Federal Confidentiality of Alcohol and Drug Abuse Patient Records regulations: The Federal rules restrict any use of the information to criminally investigate or prosecute any alcohol or drug abuse patient.[facility] HospitalIn the event this information is protected by the Federal Confidentiality of Alcohol and Drug Abuse Patient Records regulations: The Federal rules restrict any use of the information to criminally investigate or prosecute any alcohol or drug abuse patient.[facility] HospitalIn the event this information is protected by the Federal Confidentiality of Alcohol and Drug Abuse Patient Records regulations: The Federal rules restrict any use of the information to criminally investigate or prosecute any alcohol or drug abuse patient.[facility] HospitalIn the event this information is protected by the Federal Confidentiality of Alcohol and Drug Abuse Patient Records regulations: The Federal rules restrict any use of the information to criminally investigate or prosecute any alcohol or drug abuse patient.[facility] HospitalIn the event this information is protected by the Federal Confidentiality of Alcohol and Drug Abuse Patient Records regulations: The Federal rules restrict any use of the information to criminally investigate or prosecute any alcohol or drug abuse patient.[facility] HospitalIn the event this information is protected by the Federal Confidentiality of Alcohol and Drug Abuse Patient Records regulations: The Federal rules restrict any use of the information to criminally investigate or prosecute any alcohol or drug abuse patient.[facility] HospitalIn the event this information is protected by the Federal Confidentiality of Alcohol and Drug Abuse Patient Records regulations: The Federal rules restrict any use of the information to criminally investigate or prosecute any alcohol or drug abuse patient.[facility] HospitalIn the event this information is protected by the Federal Confidentiality of Alcohol and Drug Abuse Patient Records regulations: The Federal rules restrict any use of the information to criminally investigate or prosecute any alcohol or drug abuse patient.[facility] HospitalIn the event this information is protected by the Federal Confidentiality of Alcohol and Drug Abuse Patient Records regulations: The Federal rules restrict any use of the information to criminally investigate or prosecute any alcohol or drug abuse patient.[facility] Reason for Visit (unrecogniz ed section and content) Reason Comments left foot pain x 3 days Reason Comments Results Orders Reason Comments Diabetic Foot Check New Pain Ingrown Toenail Ingrown Nail Specialty Diagnoses / Procedures Referred By Ivanna fernandes Referred To Contact Podiatry Diagnoses Foot pain, left Procedures CONSULT TO PODIATRY OFFICE/OUTPATIENT NEW HIGH MDM 60-74 MINUTES Lillie Josue APRN.[employer] MA[employer]GER [address] [place] [address] Referral ID Status Reason Start Date Expiration Date V isits Requested Visits Authorized [id number] Closed PCP Requested Referral 12/03/2021 12/03/2022 1 [...] Procedures US FEMALE PELVIS TRANSVAG US TRANSVAGINAL TomballSamanta crowell, 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 OPERATOR.[employer] GREENHOUSE MANAGER [address] [place] [address] [place] [address] Referral ID Status Reason Start Date Expiration Date V isits Requested Visits Authorized [id number] Closed Auto-Generate d Referral 12/16/2023 01/14/2025 1 1 Reason Comments Endometrial Biopsy Specialty Diagnoses / Procedures Referred By Contac t Referred To Contact [facility] Diagnoses Menorrhagia with irregular cycle Procedures ENDOMETRIAL BIOPSY ENDOMETRIAL BX W/WO ENDOCERVIX BX W/O DILAT SPX Samanta Dobson, 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 OPERATOR.[employer]NUAL GREENHOUSE MANAGER [address] [place] [address] [facility] [address] [place] [address] Referral ID Status Reason Start Date Expiration Date V isits Requested Visits Authorized [id number] Closed Auto-Generate d Referral 01/08/2024 01/07/2025 1 1 Reason Comments Results Reason Comments Discussion Reason Comments Pre-Op Visit Reason Comments Post-Op Visit Reason Comments Pre-Op Exam Reason Comments Appointment Reason Comments Follow Up 6 month Reason Comments 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 Reason Comments Medication Problem Reason Comments New Patient Specialty Diagnoses / Procedures Referred By Contac t Referred To Contact Hematology Diagnoses Leukocytosis, unspecified type Procedures CONSULT TO HEMATOLOGY OFFICE/OUTPATIENT NEW HIGH MDM 60 MINUTES Myranda Dallas 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 OPERATOR.[employer]NUAL GREENHOUSE MANAGER [address] [place] [address] Referral ID Status Reason Start Date Expiration Date V isits Requested Visits Authorized [id number] Closed PCP Requested Referral 03/16/2024 03/16/2025 1 [...] Referred By Ivanna t Referred To Contact CT IMAGING Diagnoses Intra-abdominal and pelvic swelling, mass and lump, unspecified site Procedures CT CHEST W IVCON DIAGNOSTIC COMPUTED TOMOGRAPHY THORAX W/CONTRAST Aaron Blount MD [address] [place] [address] Phone: tel: fax: [place] [phone] Referral ID Status Reason Start Date Expiration Date V isits Requested Visits Authorized [id number] Closed Auto-Generate d Referral 02/07/2025 03/09/2026 1 1 Care Teams (unrecognized sec tion and content) Overedge Sewer Relationship Specialty Start Date End Date Edmond Ferrer PA-C [address] [place] [address] PCP - General Family Practice 03/30/18 Overedge Sewer Relationship Specialty Start Date End Date Edmond Ferrer PA-C [address] [place] [address] PCP - General Family Practice 03/30/18 Overedge Sewer Relationship Specialty Start Date End Date Edmond Ferrer PA-C [address] [place] [address] PCP - General Family Practice 03/30/18 Overedge Sewer Relationship Specialty Start Date End Date Edmond Ferrer PA-C [address] [place] [address] PCP - General Family Practice 03/30/18 Overedge Sewer Relationship Specialty Start Date End Date Edmond Ferrer PA-C [address] [place] [address] PCP - General Family Practice 03/30/18 Overedge Sewer Relationship Specialty Start Date End Date Edmond Ferrer PA-C [address] [place] [address] PCP - General Family Practice 03/30/18 Overedge Sewer Relationship Specialty Start Date End Date Edmond Ferrer PA-C [address] [place] [address] PCP - General Family Practice 03/30/18 Overedge Sewer Relationship Specialty Start Date End Date Edmond Ferrer PA-C [address] [place] [address] PCP - General Family Practice 03/30/18 Overedge Sewer Relationship Specialty Start Date End Date Edmond Ferrer PA-C [address] [place] [address] PCP - General Family Practice 03/30/18 Overedge Sewer Relationship Specialty Start Date End Date Edmond Ferrer PA-C [address] [place] [address] PCP - General Family Practice 03/30/18 Overedge Sewer Relationship Specialty Start Date End Date Edmond Ferrer PA-C [address] [place] [address] PCP - General Family Practice 03/30/18 Overedge Sewer Relationship Specialty Start Date End Date Edmond Ferrer PA-C [address] [place] [address] PCP - General Family Medicine 03/30/18 Overedge Sewer Relationship Specialty Start Date End Date Edmond Ferrer PA-C [address] [place] [address] PCP - General Family Medicine 03/30/18 Overedge Sewer Relationship Specialty Start Date End Date Edmond Ferrer PA-C [address] [place] [address] PCP - General Family Medicine 03/30/18 Overedge Sewer Relationship Specialty Start Date End Date Edmond Ferrer PA-C [address] [place] [address] PCP - General Family Medicine 03/30/18 Overedge Sewer Relationship Specialty Start Date End Date Edmond Ferrer PA-C [address] [place] [address] PCP - General Family Medicine 03/30/18 Overedge Sewer Relationship Specialty Start Date End Date Edmond Ferrer PA-C [address] [place] [address] PCP - General Family Medicine 03/30/18 Overedge Sewer Relationship Specialty Start Date End Date Edmond Ferrer PA-C [address] [place] [address] PCP - General Family Medicine 03/30/18 Overedge Sewer Relationship Specialty Start Date End Date Edmond Ferrer PA-C [address] [place] [address] PCP - General Family Medicine 03/30/18 Overedge Sewer Relationship Specialty Start Date End Date Edmond Ferrer PA-C [address] [place] [address] PCP - General Family Medicine 03/30/18 Overedge Sewer Relationship Specialty Start Date End Date Edmond Ferrer PA-C [address] [place] [address] PCP - General Family Medicine 03/30/18 Overedge Sewer Relationship Specialty Start Date End Date Edmond Ferrer PA-C [address] [place] [address] PCP - General Family Medicine 03/30/18 Overedge Sewer Relationship Specialty Start Date End Date Edmond Ferrer PA-C [address] [place] [address] PCP - General Family Medicine 03/30/18 Overedge Sewer Relationship Specialty Start Date End Date Edmond Ferrer PA-C [address] [place] [address] PCP - General Family Medicine 03/30/18 Overedge Sewer Relationship Specialty Start Date End Date Edmond Ferrer PA-C [address] [place] [address] PCP - General Family Medicine 03/30/18 Overedge Sewer Relationship Specialty Start Date End Date Edmond Ferrer PA-C [address] [place] [address] PCP - General Family Medicine 03/30/18 Overedge Sewer Relationship Specialty Start Date End Date Edmond Ferrer PA-C [address] [place] [address] PCP - General Family Medicine 03/30/18 Overedge Sewer Relationship Specialty Start Date End Date Edmond Ferrer PA-C [address] [place] [address] PCP - General Family Medicine 03/30/18 Overedge Sewer Relationship Specialty Start Date End Date Edmond Ferrer PA-C [address] [place] [address] PCP - General Family Medicine 03/30/18 Overedge Sewer Relationship Specialty Start Date End Date Edmond Ferrer PA-C [address] [place] [address] PCP - General Family Medicine 03/30/18 Overedge Sewer Relationship Specialty Start Date End Date Edmond Ferrer PA-C [address] [place] [address] PCP - General Family Medicine 03/30/18 Overedge Sewer Relationship Specialty Start Date End Date Edmond Ferrer PA-C [address] [place] [address] PCP - General Family Medicine 03/30/18 Overedge Sewer Relationship Specialty Start Date End Date Edmond Ferrer PA-C [address] [place] [address] PCP - General Family Medicine 03/30/18 Overedge Sewer Relationship Specialty Start Date End Date Edmond Ferrer PA-C [address] [place] [address] PCP - General Family Medicine 03/30/18 Overedge Sewer Relationship Specialty Start Date End Date Edmond Ferrer PA-C [address] [place] [address] PCP - General Family Medicine 03/30/18 Overedge Sewer Relationship Specialty Start Date End Date Edmond Ferrer PA-C [address] [place] [address] PCP - General Family Medicine 03/30/18 Overedge Sewer Relationship Specialty Start Date End Date Edmond Ferrer PA-C [address] [place] [address] PCP - General Family Medicine 03/30/18 Overedge Sewer Relationship Specialty Start Date End Date Edmond Ferrer PA-C [address] [place] [address] PCP - General Family Medicine 03/30/18 Overedge Sewer Relationship Specialty Start Date End Date Myranda Dallas, 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 OPERATOR.ANNUAL GREENHOUSE MANAGER [address] [place] [address] PCP - General Family Medicine 09/14/24 Mine Canada, 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 OPERATOR.ANNUAL GREENHOUSE MANAGER [address] [place] [address] [facility] 08/06/24 Myranda Dallas, 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 OPERATOR.ANNUAL GREENHOUSE MANAGER [address] [place] [address] [facility] 08/06/24 Overedge Sewer Relationship Specialty Start Date End Date Myranda Dallas, 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 OPERATOR.ANNUAL GREENHOUSE MANAGER [address] [place] [address] PCP - General Family Medicine 09/14/24 Mine Canada, 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 OPERATOR.ANNUAL GREENHOUSE MANAGER [address] [place] [address] [facility] 08/06/24 Myranda Dallas, 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 OPERATOR.ANNUAL GREENHOUSE MANAGER [address] [place] [address] [facility] 08/06/24 Overedge Sewer Relationship Specialty Start Date End Date Myranda Dallas, 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 OPERATOR.ANNUAL GREENHOUSE MANAGER [address] [place] [address] PCP - General Family Medicine 09/14/24 Mine [place], 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 OPERATOR.ANNUAL GREENHOUSE MANAGER [address] [place] [address] [facility]24 Myranda Dallas, 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 OPERATOR.ANNUAL GREENHOUSE MANAGER [address] [place] [address] [facility] 08/06/24 Overedge Sewer Relationship Specialty Start Date End Date Myranda Dallas, 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 OPERATOR.ANNUAL GREENHOUSE MANAGER [address] [place] [address] PCP - General Family Medicine 09/14/24 Mine [place], 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 OPERATOR.ANNUAL GREENHOUSE MANAGER [address] [place] [address] [facility] 08/06/24 11/22/24 Myranda Dallas, 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 OPERATOR.ANNUAL GREENHOUSE MANAGER [address] [place] [address] [facility] 08/06/24 11/22/24 Overedge Sewer Relationship Specialty Start Date End Date Myranda Dallas, 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 OPERATOR.ANNUAL GREENHOUSE MANAGER [address] [place], [place] [address] [phone] PCP - General Family Medicine 09/14/24 Team Status: Active Member Role Status Dates EVY Jefferson Primary Care Provider Active Team Status: Inactive Member Role Status Dates Dr. Jostin Stone , DO Emergency Provider Active Start: January 17, 2025 End: January 17, 2025 Myranda Dallas , EVY Primary Care Provider Active Start: January 17, 2025 End: January 17, 2025 Overedge Sewer Relationship Specialty Start Date End Date Myranda Dallas 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 OPERATOR.ANNUAL GREENHOUSE MANAGER [address] [place] [address] PCP - General Family Medicine 09/14/24 Overedge Sewer Relationship Specialty Start Date End Date Myranda Dallas 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 OPERATOR.ANNUAL GREENHOUSE MANAGER [address] [place], [place] [address] [phone] PCP - General Family Medicine 09/14/24 Team [...] Inactive Member Role Status Dates Myranda Dallas , S[employer]Y [employer] Primary Care Provider Active Start: January 30, 2025 End: January 30, 2025 Dr. Bryson Treviño MD Emergency Provider Active S tart: January 30, 2025 End: January 30, 2025 Overedge Sewer Relationship Specialty Start Date End Date Myranda Dallas 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 OPERATOR.ANNUAL GREENHOUSE MANAGER [address] [place] [address] PCP - General Family Medicine 09/14/24 Overedge Sewer Relationship Specialty Start Date End Date Myranda Dallas 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 OPERATOR.ANNUAL GREENHOUSE MANAGER [address] [place] [address] PCP - General Family Medicine 09/14/24 Overedge Sewer Relationship Specialty Start Date End Date Myranda Dallas 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 OPERATOR.ANNUAL GREENHOUSE MANAGER [address] [place] [address] PCP - General Family Medicine 09/14/24 Overedge Sewer Relationship Specialty Start Date End Date Myranda Dallas APRN.ANNUAL GREENHOUSE MANAGER [address] [place] [address] PCP - General Family Medicine 09/14/24 Overedge Sewer Relationship Specialty Start Date End Date Myranda Dallas 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 OPERATOR.ANNUAL GREENHOUSE MANAGER [address] [place] [address] PCP - General Family Medicine 09/14/24 Team Status: Inactive Member Role Status Dates EVY Jefferson Primary Care Provider Active Start: January 30, 2025 End: January 30, 2025 Dr. Bryson Treviño MD Attending Provider Active S tart: January 30, 2025 End: January 30, 2025 Dr. Bryson Treviño MD Emergency Provider Active S tart: January 30, 2025 End: January 30, 2025 Team Status: Inactive Member Role Status Dates EVY Jefferson Primary Care Provider Active Start: February 20, 2025 End: February 20, 2025 Dr. Ankit Saravia DO Emergency Provider Active Start: February 20, 2025 End: February 20, 2025 Goals (unrecognized section and content) Goals may [...] BE BASED ON THE PRIMARY CLINICAL RECORDS. [facility] ki work [facility]. provides no warranty or guarantee of the accuracy or completeness of information in this document.
[2025-02-20] MEDS: Ketorolac 15 MG/ML Vial IV (17:03)
[2025-02-20] MEDS: 0.9% Normal Saline (1000mL) 1,000 ML 999 ML IV (17:03)
[2025-02-20] MEDS: Ondansetron 4 MG/2 ML Vial IV (17:03)
[2025-02-20] MEDS: HYDROmorphone 1 MG/ML Syringe IV ×2 (17:03→18:28)
[2025-02-20 17:21] VITALS: BMI 36.3
--- NOTE | 2025-02-20 17:36 | EX.ED.DYSGE1 ---
HPI History of Present Illness Chief Complaint: Abd Pain [facility] Medical History Injury of back Wears glasses Depression Anxiety Fatty liver High cholesterol Restless legs Back pain Smoker Leg cramps History of echocardiogram Polycystic ovaries History of pneumonia History of gallstones Migraines Diabetes Home Medications ?Medication ?Instructions ?Recorded ?Last Taken ?Type buspirone 30 mg tablet 30 mg PO BID 05/02/18 02/19/25 History tizanidine 4 mg tablet 4 mg PO Q8H PRN muscle spasticity 05/02/18 02/19/25 History multivitamin 1 tab PO DAILY 11/24/18 04/14/24 History Held on 02/20/25. Instructions: MD Ordered simvastatin 40 mg tablet 40 mg PO QHS 05/19/21 02/19/25 History omega-3 fatty acids 1,000 mg 1,200 mg PO BID 06/12/21 04/10/24 History capsule (Fish Oil Concentrate) Held on 02/20/25. Instructions: MD Ordered cholecalciferol (vitamin D3) 125 125 mcg PO DAILY 04/20/24 Unknown History mcg (5,000 unit) tablet (Vitamin D3) Held on 02/20/25. Instructions: MD Ordered metformin 1,000 mg tablet 1,000 mg PO BID 04/20/24 02/19/25 History amitriptyline 100 mg tablet 100 mg PO QHS 02/20/25 02/19/25 History docusate sodium 100 mg capsule 100 mg PO BID 02/20/25 02/19/25 History empagliflozin 25 mg tablet 25 mg PO DAILY 02/20/25 Unknown History (Jardiance) Held on 02/20/25. Instructions: MD Ordered fluorometholone 0.1 % eye 1 drp ophthalmic (eye) BID 02/20/25 02/19/25 History drops,suspension hydrocodone-acetaminophen 5-325mg 1 tab PO TID PRN PRN pain 02/20/25 02/20/25 History 5mg-325mg hydromorphone 4 mg tablet 4 mg PO Q4H PRN pain 5 days #20 02/20/25 Unknown Rx (Dilaudid) tabs hydroxyzine HCl 10 mg tablet 10 mg PO TID PRN PRN anxiety 02/20/25 Unknown History naloxone 4 mg/actuation nasal spray 1 spray intranasal PRN PRN opioid 02/20/25 Unknown History overdose propranolol 40 mg tablet 40 mg PO BID 02/20/25 02/19/25 History sennosides 8.6 mg tablet (senna) 8.6 mg PO BID PRN PRN constipation 02/20/25 Unknown History sumatriptan succinate 100 mg See Rx Instructions PO .COMPLEX 02/20/25 Unknown History tablet (Imitrex) venlafaxine 75 mg capsule,extended 75 mg PO DAILY 02/20/25 02/19/25 History release 24 hr Allergy/AdvReac Type Severity Reaction Status Date / Time doxycycline Allergy Hives Verified 02/20/25 16:22 morphine Allergy Rash Verified 02/20/25 16:22 moxifloxacin HCl (From Allergy Hives Verified 02/20/25 16:22 Avelox) Penicillins (PCN) Allergy Hives Verified 02/20/25 16:22 Surgical History History of colonoscopy History of dilation and curettage History of selective injection of anesthetic agent around lumbar nerve root History of tonsillectomy and adenoidectomy History of section History of cholecystectomy Social History Smoking Status: Current every day smoker tobacco type: e-cigarettes Tobacco: How many years used: 6 Smokeless tobacco user: other Electronic Cigarette Use: with nicotine second hand exposure: No alcohol intake: never substance use type: does not use dillon/zoroastrian: None seatbelt use: always EXAM Physical Exam Const Vital Signs: 02/20/25 16:22 Temperature 98.7 F Temperature Source Oral Pulse Rate 49 L Respiratory Rate 18 Blood Pressure 177/83 H Blood Pressure Mean 114 Pulse Ox 100 Oxygen Delivery Method Room Air MDM MDM MDM Narrative Medical decision making narrative: HISTORY OF PRESENT ILLNESS: Chief complaint: abdominal pain 45 F here with abdominal pain secondary to ovarian mass REVIEW OF SYSTEMS: Pertinent positives: Abdominal pain Pertinent negatives: Vomiting PHYSICAL EXAM: Nursing triage notes reviewed, Vital signs reviewed Constitutional: please see mdm HENT: MMM Eyes: Pupils equal round and reactive to light, Extraocular muscles intact Neck: No stridor, no JVD, full neck ROM Lungs: Clear to auscultation, No wheezing or rales. No increased work of breathing, no conversational dyspnea, no accessory muscle use, no nasal flaring. No respiratory distress noted Heart: Regular rate and rhythm, No murmurs, No rubs and No gallops, 2+ distal pulses (radial, femoral, posterior tibial) in all extremities Abdomen: Soft, right lower quadrant TTP, no peritoneal signs : No CVAT Extremities: No edema Neuro: No new focal neurological deficits, cranial nerves II through XII intact, 5/5 strength in all present extremities. Intact sensation to light touch in all present extremities, 2+ reflexes bilateral patella tendons. Skin: No rash or lesions noted MEDICAL DECISION MAKING: Chief Complaint: please see HPI External records reviewed: Reviewed prior ED visit Factors affecting care: ovarian mass Social determinants of health: none History obtained from others: Family Consults: SECURITY DEVELOPER/COCOA BUTTER FILTER OPERATOR ONC?Dr. Brody who accepts the patient in transfer. MDM Narrative: Patient was initially hypertensive. Severe abdominal pain. TTP right lower quadrant. No peritoneal signs. Reviewed labs images from earlier. CT scan of the abdomen pelvis from earlier today showed large ovarian mass likely causing pain. Gave IV Dilaudid, Toradol, Zofran and fluids Transferred for definitive surgical evaluation by COCOA BUTTER FILTER OPERATOR/ONC to [facility]. The patient and/or family, caregivers express understanding. The patient and/or family, caregivers agrees with the plan. Shared decision making: I will have a discussion with the patient and or visitors regarding risk/benefits of further testing or admission. They will be made aware of of the risk/benefits inherent in this decision they will be given the opportunity to voice understanding. Total critical care time today provided was at least 0 minutes. This excludes separately billable procedures. Critical care time (if documented) is secondary to the patient having high probability of clinically significant/life threatening deterioration in the patient's condition which required my urgent intervention. Impression: 1. Acute abdominal pain 2. Right ovarian mass 3. Leukocytosis Dispo: Transfer to [facility] This note was generated with Keepstream dictation software. It may contain incorrect words, spelling, and punctuation that were not noted in review of the chart prior to signing. Discharge Plan Triage Chief Complaint: Abd Pain ED Provider: Ankit Saravia Dx/Rx/DC Orders Prescriptions: No Action multivitamin tablet 1 tab PO DAILY omega-3 fatty acids [Fish Oil Concentrate] 1,000 mg capsule 1,200 mg PO BID tizanidine 4 MG tablet 4 mg PO Q8H PRN (Reason: muscle spasticity) Patient Comments: take 1 tablet by mouth twice a day if needed buspirone 30 MG tablet 30 mg PO BID Patient Comments: take 1 tablet by mouth twice a day simvastatin 40 mg tablet 40 mg PO QHS Patient Comments: take 1 tablet by mouth at bedtime hydrocodone-acetaminophen 5-325 mg tablet 1 tab PO TID PRN PRN (Reason: pain) docusate sodium 100 mg capsule 100 mg PO BID amitriptyline 100 mg tablet 100 mg PO QHS Jardiance 25 mg tablet 25 mg PO DAILY naloxone 4 mg/actuation spray,non-aerosol 1 spray INTRANASAL PRN PRN (Reason: opioid overdose) sennosides [senna] 8.6 mg tablet 8.6 mg PO BID PRN PRN (Reason: constipation) venlafaxine 75 mg capsule,extended release 24hr 75 mg PO DAILY propranolol 40 mg tablet 40 mg PO BID hydroxyzine HCl 10 mg tablet 10 mg PO TID PRN PRN (Reason: anxiety) fluorometholone 0.1 % drops,suspension 1 drp ophthalmic (eye) BID sumatriptan succinate [Imitrex] 100 mg tablet See Rx Instructions .ROUTE .COMPLEX Rx Instructions: take 1 tab at onset of headache; if no relief, may repeat 1 tab after at least 2 hrs; max = 2 tabs/24 hrs hydromorphone [Dilaudid] 4 mg tablet 4 mg PO Q4H PRN (Reason: pain) 5 Days Qty: 20 0RF metformin 1,000 mg tablet 1,000 mg PO BID cholecalciferol (vitamin D3) [Vitamin D3] 125 mcg (5,000 unit) tablet 125 mcg PO DAILY Primary Care Provider: Myranda Lamas Referrals: Myranda Lamas, DIRECTOR CONSTRUCTION SERVICES [Primary Care Provider] - Print Language: Burmese
[2025-02-20 18:30] VITALS: BP 130/89; PULSE 55; RESP 16; O2SAT 93
[2025-02-20 18:45] VITALS: BP 93/67; PULSE 55; RESP 16; TEMP 36.6; O2SAT 95
== END 2025-02-20 18:46 | disposition short-term general hospital (02) ==
PROVIDERS: Emergency Provider Emergency Medicine; PCP Clinical Nurse Specialist Adult Health; Visit Provider Emergency Medicine
DX: R10.9 Unspecified abdominal pain (principal); E11.9 Type 2 diabetes mellitus without complications; N83.8 Other noninflammatory disorders of ovary, fallopian tube and broad ligament; F17.210 Nicotine dependence, cigarettes, uncomplicated; E78.00 Pure hypercholesterolemia, unspecified; D72.829 Elevated white blood cell count, unspecified; Z79.899 Other long term (current) drug therapy; Z79.84 Long term (current) use of oral hypoglycemic drugs; F17.290 Nicotine dependence, other tobacco product, uncomplicated; F41.9 Anxiety disorder, unspecified; F32.A Depression, unspecified
CPT/HCPCS: 96361; 96374; 96375; 96376; 99284; J2405